=== PATIENT | male | born 1935 | race Caucasian/White ===

== ENCOUNTER → 2020-05-20 10:55 | Outpatient (BNVA) | payer OTHER, SELFPAY | PROVIDERS: PCP Internal Medicine; Referring Provider Internal Medicine; Visit Provider Surgery | DX: K40.90 Unilateral inguinal hernia, without obstruction or gangrene, not specified as recurrent (principal) | CPT/HCPCS: 99212 ==

== ENCOUNTER 2020-07-09 10:39 | Outpatient (REF) | payer OTHER, SELFPAY ==
--- NOTE | 2020-07-09 10:42 | CT_ITS ---
EXAMINATION: CT ABDOMEN AND PELVIS WITH CONTRAST CLINICAL INFORMATION: Abnormal findings on diagnostic imaging of other specified body structure COMPARISON: Previous CT of the abdomen and pelvis October 2018 TECHNIQUE: Multidetector volumetric images were obtained from the superior aspect of the liver through the pubic symphysis following administration 85 mL of Omnipaque 350 intravenous contrast. Sagittal and coronal reformatted images were obtained on the technologist's workstation. Oral contrast: Yes This CT examination was performed using dose optimization techniques as appropriate, variously including the following: *Automated exposure control *Adjustment of mA and/or kV according to patient size (this includes techniques or standardized protocols for targeted exams where dose is matched to indication/reason for exam; i.e. extremities or head) *Use of iterative reconstruction technique DLP: 423 mGy-cm FINDINGS: LUNG BASES: There are clustered left lower lobe pulmonary nodules. The largest measures 6 mm axial image 13. 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 LIVER, GALLBLADDER, AND BILIARY TREE: The liver is normal in size, shape, and attenuation. No focal hepatic lesion or biliary ductal dilatation is present. The gallbladder is unremarkable with no evidence of radiopaque gallstones, gallbladder wall thickening, or obvious pericholecystic inflammatory changes. PANCREAS: Unremarkable. SPLEEN: Unremarkable. ADRENAL GLANDS: Unremarkable. KIDNEYS AND URETERS: There are multiple bilateral renal cysts. The kidneys are otherwise unremarkable. BLADDER: Unremarkable. GASTROINTESTINAL TRACT: There are postsurgical changes to the small bowel with surgical staple line. There is severe diverticulosis of the colon. No evidence of diverticulitis is seen. Left inguinal hernia containing large bowel. There is a partially calcified small bowel mesentery mass and infiltration of the small bowel mesentery. This is irregularly-shaped, follows the vasculature and difficult to measure. This measures 3 x 6 x 6 cm on sagittal and coronal reconstructed images. There are small adjacent noncalcified small bowel mesentery lymph nodes. This is new or increased from October 2018 exam. Carcinoid, lymphoma, mesenteritis and infection such as TB should be considered. ABDOMINAL WALL: There is a large left inguinal hernia containing the sigmoid colon. LYMPH NODES: Partially calcified small bowel mesentery mass, infiltration of the fat and small surrounding noncalcified small bowel mesentery lymph nodes. Largest discrete lymph node is upper normal in size measuring 1 cm. There is a small amount of ascites in the pelvis. VASCULAR: There is evidence of atherosclerotic disease. No aneurysm is seen. The SMA and at the heart patent. PELVIC VISCERA: The prostate gland is enlarged measuring 4 x 5.3 cm in AP and transverse dimension. OSSEOUS STRUCTURES: There are degenerative changes of the spine. There is mild anterior subluxation of L4 with respect L5 probably related to facet arthritis. CT/CT abdomen pelvis w con IMPRESSION: Severe diverticulosis of the colon. Large left inguinal hernia containing the colon. No evidence of obstruction. Postsurgical change to the small bowel. New partially calcified small bowel mesentery mass, adjacent small small bowel mesentery noncalcified lymph nodes and stranding of the small bowel mesentery. Carcinoid, lymphoma, mesenteritis and infection such as TB should be considered. Small amount of ascites. New clustered left lower lobe pulmonary nodules, largest measuring 6 mm. Multiple bilateral renal cysts. Enlarged prostate gland.
[2020-07-09] MEDS: iohexoL 350 MG/ML 100 ML INFUS..BTL IV (11:50)
== END 2020-07-09 10:40 | disposition home or self-care (01) ==
LOC: HO.CT 10:39
PROVIDERS: Visit Provider Surgery
DX: R93.89 Abnormal findings on diagnostic imaging of other specified body structures (principal); K40.90 Unilateral inguinal hernia, without obstruction or gangrene, not specified as recurrent; R19.00 Intra-abdominal and pelvic swelling, mass and lump, unspecified site
CPT/HCPCS: 74177; Q9967

== ENCOUNTER 2021-12-10 14:00 | Emergency (ER) | payer OTHER, MEDICARE, SELFPAY ==
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
--- NOTE | ~2021-12-10 | CT_ITS ---
EXAMINATION: CT HEAD WITHOUT CONTRAST CT CERVICAL SPINE WITHOUT CONTRAST CLINICAL INFORMATION: Fall COMPARISON: None. TECHNIQUE: Multidetector CT imaging of the head and cervical spine was performed without the use of intravenous contrast. Multiplanar reformats are reviewed. This CT examination was performed using dose optimization techniques as appropriate, variously including the following: *Automated exposure control *Adjustment of mA and/or kV according to patient size (this includes techniques or standardized protocols for targeted exams where dose is matched to indication/reason for exam; i.e. extremities or head) *Use of iterative reconstruction technique DLP: 904 mGy-cm. FINDINGS: There is no evidence of acute intracranial hemorrhage or territorial infarction. No abnormal mass effect or midline shift is seen. Cordero to white matter differentiation is well preserved. No extra-axial fluid collections are identified. Generalized brain parenchymal volume loss. No disproportionate ventriculomegaly to suggest complicating hydrocephalus. Patchy subcortical and periventricular white matter low-attenuation changes statistically small vessel ischemic disease. 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 Bilateral mastoid air cell effusions, associated with resorption of some of the septa.. Partial opacification of the bilateral middle ear cavity. No inner ear ossicles are present on the right. Atlantooccipital alignment is maintained. The vertebral bodies and posterior elements align normally. No acute fracture or subluxation. Vertebral body heights are maintained. Small endplate osteophytes present throughout cervical spine. Loss of disc space height present at C3-C4, C5-C6, C6-C7 and C7-T1. The paraspinal soft tissues are unremarkable. The imaged lung apices are clear CT/CT cervical spine wo con IMPRESSION: * No acute intracranial hemorrhage or extra-axial collection. * Mild white matter small vessel ischemic changes. * Chronic bilateral coalescent mastoiditis. 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 * No cervical spine fracture or malalignment.
[2021-12-10 14:12] VITALS: BP 169/82; BP 170/90; PULSE 75; PULSE 90; RESP 18; TEMP 36.8; O2SAT 97; O2SAT 98; BMI 23.6
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
[2021-12-10] MEDS: Acetaminophen 325 MG TABLET 650 MG PO (14:21)
[2021-12-10 16:11] VITALS: BP 157/79; PULSE 76; RESP 16; O2SAT 98
== END 2021-12-10 17:55 | disposition home or self-care (01) ==
PROVIDERS: Emergency Provider Emergency Medicine
DX: S40.011A Contusion of right shoulder, initial encounter (principal); V43.62XA Car passenger injured in collision with other type car in traffic accident, initial encounter; Y93.89 Activity, other specified; Y92.414 Local residential or business street as the place of occurrence of the external cause; Y99.9 Unspecified external cause status
CPT/HCPCS: 70450; 71045; 72125; 73030; 99284

== ENCOUNTER 2022-09-12 08:02 | Inpatient (IN) | payer OTHER, MEDICARE, SELFPAY ==
[2022-09-12] VITALS (11 sets, daily range): BP systolic 137–164; BP diastolic 62–80; PULSE 67–113; RESP 16–25; TEMP 36.7–39.7; O2SAT 94–98; BMI 19.6
--- NOTE | ~2022-09-12 | CT_ITS ---
EXAMINATION: CT ANGIOGRAM OF THE CHEST WITH AND WITHOUT CONTRAST (CT PULMONARY ANGIOGRAM FOR PE) CLINICAL INFORMATION: Reason for Exam +covid, r/o PE COMPARISON: Previous chest x-ray from earlier the same day and chest CT May 2018 TECHNIQUE: Prior to contrast administration, noncontrast localization images were obtained. Subsequently, multidetector volumetric imaging was performed from the thoracic inlet to below the diaphragms following the administration of 65 mL Omnipaque 350 intravenous contrast. No contrast reaction reported Sagittal, coronal, and MIP oblique sagittal reformatted images were obtained on the CT workstation, uploaded to PACS, and reviewed. This CT examination was performed using dose optimization techniques as appropriate, variously including the following: *Automated exposure control *Adjustment of mA and/or kV according to patient size (this includes techniques or standardized protocols for targeted exams where dose is matched to indication/reason for exam; i.e. extremities or head) *Use of iterative reconstruction technique Total exam dose-length product 301 mGy-cm FINDINGS: QUALITY OF STUDY/CONTRAST BOLUS: Satisfactory. PULMONARY ARTERIES: No pulmonary emboli. THORACIC AORTA: No aneurysm. LUNG: Subsegmental atelectasis at the lung bases. Increased dependent soft tissue in the left mainstem bronchus. This may correspond to patient secretions. This is new from 2018 exam. 3 mm calcified granuloma in the superior segment of the right lower lobe near the major fissure. PLEURA: No pleural effusion or pneumothorax. MEDIASTINUM: Normal heart size. No pericardial effusion. Small bilateral hilar and mediastinal lymph nodes. No enlarged hilar or mediastinal lymphadenopathy. No evidence of septal bowing or right heart strain. CORONARY ARTERY CALCIFICATION: Mild CHEST WALL/AXILLA: No axillary or internal mammary lymphadenopathy. OSSEOUS STRUCTURES: No acute or suspicious osseous abnormality. Degenerative changes of the spine. UPPER ABDOMEN: Left renal cyst. No reflux of contrast into the hepatic veins to suggest elevated right heart pressures. CT/CT angio chest PE protocol IMPRESSION: No evidence of pulmonary embolism. Mild dependent atelectasis at the lung bases. VTE: negative
--- NOTE | ~2022-09-12 | XR_ITS ---
EXAMINATION: XR CHEST CLINICAL INFORMATION: Weakness COMPARISON: Chest x-ray December 10, 2021 TECHNIQUE: Frontal view of the chest was obtained. FINDINGS: Cardiac silhouette is normal in size. The lungs are well aerated. There is no lobar consolidation. No pleural effusion or pneumothorax. Old healed rib fractures. XR/XR chest 1V IMPRESSION: No acute pulmonary pathology.
--- NOTE | ~2022-09-12 | CT_ITS ---
EXAMINATION: CT HEAD WITHOUT CONTRAST CLINICAL INFORMATION: Altered mental status COMPARISON: Head CT December 10, 2021 TECHNIQUE: Contiguous axial imaging was performed from the skull base to vertex without intravenous administration of contrast. This CT examination was performed using dose optimization techniques as appropriate, variously including the following: *Automated exposure control *Adjustment of mA and/or kV according to patient size (this includes techniques or standardized protocols for targeted exams where dose is matched to indication/reason for exam; i.e. extremities or head) *Use of iterative reconstruction technique DLP: 635 mGy-cm FINDINGS: There is no evidence of acute intracranial hemorrhage or territorial infarction. No abnormal mass effect or midline shift is appreciated. Cordero-white differentiation is well preserved. No extra-axial fluid collections. The ventricular system and cortical sulci are prominent, consistent with volume loss. There are areas of low density in the periventricular and subcortical white matter, most consistent with sequelae of microvascular ischemic change. 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 The osseous structures and soft tissues are normal. There are calcifications of the cavernous internal carotid arteries. The visualized paranasal sinuses are well aerated. Chronic mastoid air cell effusions. CT/CT head/brain wo IV con IMPRESSION: Chronic microvascular ischemic changes with no CT evidence of acute intracranial abnormality.
[2022-09-12] MEDS: Acetaminophen Supp 650 MG SUPP.RECT PR ×2 (08:26→15:33)
--- NOTE | 2022-09-12 08:28 | ECG_ITS ---
Test Reason : WEAKNESS Blood Pressure : / mmHG Vent. Rate : 080 BPM Atrial Rate : 080 BPM P-R Int : 154 ms QRS Dur : 080 ms QT Int : 380 ms P-R-T Axes : 076 067 095 degrees QTc Int : 438 ms Normal sinus rhythm T wave abnormality, consider anterolateral ischemia Abnormal ECG When compared with ECG of 31-OCT-2018 10:44, T wave inversion now evident in Anterolateral leads Referred By: Katerina Mancilla Electronically Signed By:Abdoul Josue
--- NOTE | 2022-09-12 08:32 | ED_ITS ---
HPI - Weakness General Chief complaint: Weakness Stated complaint: Increased weakness per EMS Time Seen by Provider: 09/12/22 08:20 Source: patient and EMS Mode of arrival: EMS Limitations: no limitations History of Present Illness HPI Narrative: 87 yo male with history of HTN, HLD, CKD, anemia here with generalized weakness, ?confusion, febrile on arrival. Patient with no complaints. Unsure of baseline mental status. Found this morning by spouse to be this way. Last known normal last night. Complaint: generalized weakness Related Data Home Medications Medication Instructions Recorded Confirmed calcium 250 mg tablet 250 mg PO DAILY 09/12/22 09/12/22 vitamin E 09/12/22 Allergies Allergy/AdvReac Type Severity Reaction Status Date / Time No Known Allergies Allergy Unverified 06/08/21 11:28 [No Known Allergies*] Review of Systems Review of Systems: Yes Unobtainable due to mental status [facility] Past Medical History Attestation statement: The following information was validated with the patient. Source: old records reviewed and nursing notes reviewed Medical History Abnormal CT scan Hypercholesterolemia Hypertension Inguinal hernia with strangulation TIA (transient ischemic attack) Surgical History History of right inguinal hernia repair Social History Social History Household Members: Spouse Housing: Apartment Alcohol intake: former Patient Tobacco Use Status: Never used Tobacco Advance Directives: No Advance Directives Information Provided: No service: Yes Current occupational status: retired Physical Exam Vital Signs: Vital Signs: Last Vital Signs Temp 100.7 F H 09/12/22 13:26 Pulse 76 09/12/22 13:26 Resp 20 09/12/22 13:26 BP 142/78 H 09/12/22 13:26 Pulse Ox 96 09/12/22 13:26 O2 Del Method Room Air 09/12/22 13:26 BMI result Body Mass Index 19.6 Const: General: alert HEENT: Other: +tacky mucous membranes Head: Yes normal to inspection Eyes: General: appearance normal, both eyes and all related structures Pupils: Equal, round and reactive pupils present Neck: Neck: Yes normal visual inspection, Yes full ROM, Yes no lymphadenopathy and Yes no meningeal signs Chest: Chest palpation & inspection: normal inspection of the chest Resp: Effort & Inspection: normal respiratory effort Auscultation: clear to auscultation bilaterally Cardio: Rate: regular rate Rhythm: regular rhythm Peripheral pulses: Peripheral pulses 2+ throughout GI: Inspection: Yes normal to inspection Palpation (GI): Soft to palpation and nontender Back/Spine/Pelvis: Thoracic/Lumbar Spine: thoracic and lumbar spine normal to inspection Skin: General skin exam: no rashes or lesions noted Neuro: General: moves all extremities and no meningeal signs Cranial nerves: Yes Equal, round and reactive pupils present Extrem: General: Yes normal to inspection, Yes no pedal edema and Yes no calf tenderness Course Course Course Narrative: 1020-Covid screen is positive. No tachypnea. Saturations are 94% on RA. Temp has improved. Patient still quite weak and confused (oriented to self and place only) but able to move all extremities with no difficulty. Not able to perform ambulatory oxygen saturation. Called and spoke to . She reports patient seemed fine yesterday. They went to bed around 945pm and she did notice the patient was having some difficulty with ambulating to bed and seemed weaker then normal but no other symptom. This morning she was unable to get him out of bed. Denies recent URI symptoms. Patient has never had COVID before. Nursing tells me EMS reported that patients initial oxygen saturation was in the low 80's. Here it is normal. EKG shows some ST changes leads v3-v5 but no recent EKG (last from 2019). No evidence of right heart strain. Initial troponin 31. WIll repeat troponin and obtain CTA to r/o PE. Confusion and weakness may be metabolic encephalopathy from viral illness/fever. Doubt meningitis Reevaluation(s) Reevaluation #1: 1300-Patient with delta increase in troponin. EKG with changes. NO chest pain. Will d/w with cards as admission is likely warranted for further eval. Reevaluation #2: 1320-Patient given ASA VA, lovenox 1mg/kg Medications Administered Discontinued Medications Generic Name Dose Route Start Last Admin Trade Name Freq PRN Reason Stop Dose Admin Acetaminophen 650 mg 09/12/22 08:14 09/12/22 08:26 Acetaminophen Supp 650 Mg Supp.Rect VA 09/12/22 08:15 650 mg ONCE ONE Administration Ceftriaxone Sodium 1 gm/ 50 mls @ 100 mls/hr 09/12/22 08:28 09/12/22 09:54 Sodium Chloride IV 09/12/22 08:57 Infused ONCE ONE Infusion Sodium Chloride 1,000 mls @ 999 mls/hr 09/12/22 08:29 09/12/22 12:09 Ns IV 09/12/22 09:29 Infused .Q1H1M STA Infusion Iohexol 100 ml 09/12/22 10:51 09/12/22 10:53 Iohexol 350 Mg/Ml 100 Ml Infus..Btl IV 09/12/22 10:52 65 ml ONCE ONE Administration Medical Decision Making Medical Decision Making [facility] Narrative: 87 yo male here with generalized weakness, confusion found in bed this way by family today. Noted to be febrile on arrival. Patient unable to provide HPI. NO meningeal signs/lymphadenopathy, moving all four extremities with no weakness appreciated. LS CTA. Other then fever patient has stable vital signs. Will obtain labs including blood cultures, lactic acid, CXR, EKG, CT head, UA, rsv/covid/flu test At this time infection is suspected. Antibiotics ordered. Differential Diagnosis Differential Diagnoses: The differential diagnosis associated with the presentation includes UTI, PNA, viral syndrome less likely ICH, meningitis Admission/Observation Consideration of admission/observation: Escalation of care including admission/observation considered EKG changes with increase in troponin by 50% concerning for ischemia/nstemi Consult Healthcare Provider Management of the patient was discussed with: Hospitalist and Automotive Drivability Technician 1300-Spoke to Dr Armando from cardiology as patient as EKG changes, increase in troponin-he recommended giving aspirin, lovenox or IV heparin and admission 1315-Spoke to Dr FUENTES Lab Data [facility] Lab Attestation statement: I reviewed the patient's lab results. 09/12/22 09:17 09/12/22 09:17 Labs: Lab Results 09/12/22 09/12/22 09/12/22 Range/Units 08:54 08:54 09:17 WBC 6.3 (4.8-10.8) X10*3/uL RBC 3.24 L (4.60-5.80) X10*6/uL Hgb 9.6 L (14.0-18.0) g/dl Hct 29.4 L (42.0-52.0) % MCV 90.7 (80.0-98.0) fL MCH 29.6 (27.0-33.0) pg MCHC 32.7 (31.0-36.0) g/dl RDW 14.8 (11.0-16.0) % Plt Count 134 L (160-400) X10*3/uL MPV 11.6 (9.4-12.4) fL Immature Gran % (Auto) 0.3 (0.0-0.4) % Neut % (Auto) 79.4 H (45-73) % Lymph % (Auto) 6.8 L (20-40) % Merrick % (Auto) 12.9 H (2-11) % Eos % (Auto) 0.3 (0-4) % Baso % (Auto) 0.3 (0-2) % Lymph # (Auto) 0.4 L (1.2-4.9) X10*3/uL Merrick # (Auto) 0.8 (0.1-1.2) X10*3/uL Eos # (Auto) 0.0 (0.0-0.4) X10*3/uL Baso # (Auto) 0.0 (0.0-0.2) X10*3/uL Abs Immat Gran (auto) 0.02 (0.00-0.03) X10*3/uL Absolute Neuts (auto) 5.0 (2.0-8.3) x10*3/uL Absolute Nucleated RBC 0.000 (0.0-0.012) X10*3/uL Nucleated RBC % (auto) 0.0 (0.0-0.2) /100WBC PT (10.0-13.1) SEC INR (0.9-1.1) Sodium (135-145) mmol/L Potassium (3.3-5.1) mmol/L Chloride (96-108) mmol/L Carbon Dioxide (22-29) mmol/L Anion Gap (12-20) BUN (9-16) mg/dL Creatinine (0.5-1.4) mg/dL Estim Creat Clear Calc Estimated GFR Random Glucose (60-115) mg/dL Lactic Acid (0.5-2.0) mmol/L Calcium (8.4-10.2) mg/dL Magnesium (1.6-2.6) mg/dL Total Bilirubin (0.0-1.0) mg/dL Direct Bilirubin (0.0-0.5) mg/dL AST (5-37) U/L ALT (0-40) U/L Alkaline Phosphatase (39-117) U/L Total Creatine Kinase (38-174) U/L Troponin I High Sens (<3.5-35.0) ng/L Total Protein (6.5-8.0) g/dL Albumin (3.5-5.0) g/dL Urine Color Yellow Urine Appearance Clear Urine pH 8.5 (5.0-9.0) Ur Specific [place] 1.015 (1.005-1.025) Urine Protein 30 (1+) H (Neg-Trace) mg/dL Urine Glucose (UA) Negative (Negative) mg/dL Urine Ketones Negative (Negative) mg/dL Urine Blood Small (1+) H (Negative) Urine Nitrite Negative (Negative) Ur Leukocyte Esterase Negative (Negative) Urine RBC 11-20 H (0-2) /HPF Urine WBC 0-5 (0-5) /HPF Ur Squamous Epith Cells 0-2 (0-2) /HPF Urine Bacteria None Seen (None Seen) Hyaline Casts 0-2 (0-2) /LPF Influenza Type A (PCR) NEGATIVE (Negative) Influenza Type B (PCR) NEGATIVE (Negative) RSV RNA Qual (PCR) NEGATIVE (Negative) SARS-CoV-2 RNA (RT-PCR) POSITIVE A (Negative) 09/12/22 09/12/22 09/12/22 Range/Units 09:17 09:17 09:17 WBC (4.8-10.8) X10*3/uL RBC (4.60-5.80) X10*6/uL Hgb (14.0-18.0) g/dl Hct (42.0-52.0) % MCV (80.0-98.0) fL MCH (27.0-33.0) pg MCHC (31.0-36.0) g/dl RDW (11.0-16.0) % Plt Count (160-400) X10*3/uL MPV (9.4-12.4) fL Immature Gran % (Auto) (0.0-0.4) % Neut % (Auto) (45-73) % Lymph % (Auto) (20-40) % Merrick % (Auto) (2-11) % Eos % (Auto) (0-4) % Baso % (Auto) (0-2) % Lymph # (Auto) (1.2-4.9) X10*3/uL Merrick # (Auto) (0.1-1.2) X10*3/uL Eos # (Auto) (0.0-0.4) X10*3/uL Baso # (Auto) (0.0-0.2) X10*3/uL Abs Immat Gran (auto) (0.00-0.03) X10*3/uL Absolute Neuts (auto) (2.0-8.3) x10*3/uL Absolute Nucleated RBC (0.0-0.012) X10*3/uL Nucleated RBC % (auto) (0.0-0.2) /100WBC PT 14.5 H (10.0-13.1) SEC INR 1.3 H (0.9-1.1) Sodium 136 (135-145) mmol/L Potassium 3.9 (3.3-5.1) mmol/L Chloride 101 (96-108) mmol/L Carbon Dioxide 25 (22-29) mmol/L Anion Gap 14 (12-20) BUN 24 H (9-16) mg/dL Creatinine 1.38 (0.5-1.4) mg/dL Estim Creat Clear Calc 34.7 Estimated GFR 49 Random Glucose 97 (60-115) mg/dL Lactic Acid 0.7 (0.5-2.0) mmol/L Calcium 9.2 (8.4-10.2) mg/dL Magnesium 2.1 (1.6-2.6) mg/dL Total Bilirubin 0.6 (0.0-1.0) mg/dL Direct Bilirubin 0.2 (0.0-0.5) mg/dL AST 22 (5-37) U/L ALT 10 (0-40) U/L Alkaline Phosphatase 54 (39-117) U/L Total Creatine Kinase 210 H (38-174) U/L Troponin I High Sens (<3.5-35.0) ng/L Total Protein 6.7 (6.5-8.0) g/dL Albumin 4.1 (3.5-5.0) g/dL Urine Color Urine Appearance Urine pH (5.0-9.0) Ur Specific [place] (1.005-1.025) Urine Protein (Neg-Trace) mg/dL Urine Glucose (UA) (Negative) mg/dL Urine Ketones (Negative) mg/dL Urine Blood (Negative) Urine Nitrite (Negative) Ur Leukocyte Esterase (Negative) Urine RBC (0-2) /HPF Urine WBC (0-5) /HPF Ur Squamous Epith Cells (0-2) /HPF Urine Bacteria (None Seen) Hyaline Casts (0-2) /LPF Influenza Type A (PCR) (Negative) Influenza Type B (PCR) (Negative) RSV RNA Qual (PCR) (Negative) SARS-CoV-2 RNA (RT-PCR) (Negative) 09/12/22 09/12/22 Range/Units 09:17 12:27 WBC (4.8-10.8) X10*3/uL RBC (4.60-5.80) X10*6/uL Hgb (14.0-18.0) g/dl Hct (42.0-52.0) % MCV (80.0-98.0) fL MCH (27.0-33.0) pg MCHC (31.0-36.0) g/dl RDW (11.0-16.0) % Plt Count (160-400) X10*3/uL MPV (9.4-12.4) fL Immature Gran % (Auto) (0.0-0.4) % Neut % (Auto) (45-73) % Lymph % (Auto) (20-40) % Merrick % (Auto) (2-11) % Eos % (Auto) (0-4) % Baso % (Auto) (0-2) % Lymph # (Auto) (1.2-4.9) X10*3/uL Merrick # (Auto) (0.1-1.2) X10*3/uL Eos # (Auto) (0.0-0.4) X10*3/uL Baso # (Auto) (0.0-0.2) X10*3/uL Abs Immat Gran (auto) (0.00-0.03) X10*3/uL Absolute Neuts (auto) (2.0-8.3) x10*3/uL Absolute Nucleated RBC (0.0-0.012) X10*3/uL Nucleated RBC % (auto) (0.0-0.2) /100WBC PT (10.0-13.1) SEC INR (0.9-1.1) Sodium (135-145) mmol/L Potassium (3.3-5.1) mmol/L Chloride (96-108) mmol/L Carbon Dioxide (22-29) mmol/L Anion Gap (12-20) BUN (9-16) mg/dL Creatinine (0.5-1.4) mg/dL Estim Creat Clear Calc Estimated GFR Random Glucose (60-115) mg/dL Lactic Acid (0.5-2.0) mmol/L Calcium (8.4-10.2) mg/dL Magnesium (1.6-2.6) mg/dL Total Bilirubin (0.0-1.0) mg/dL Direct Bilirubin (0.0-0.5) mg/dL AST (5-37) U/L ALT (0-40) U/L Alkaline Phosphatase (39-117) U/L Total Creatine Kinase (38-174) U/L Troponin I High Sens 31.1 50.1 H D (<3.5-35.0) ng/L Total Protein (6.5-8.0) g/dL Albumin (3.5-5.0) g/dL Urine Color Urine Appearance Urine pH (5.0-9.0) Ur Specific [place] (1.005-1.025) Urine Protein (Neg-Trace) mg/dL Urine Glucose (UA) (Negative) mg/dL Urine Ketones (Negative) mg/dL Urine Blood (Negative) Urine Nitrite (Negative) Ur Leukocyte Esterase (Negative) Urine RBC (0-2) /HPF Urine WBC (0-5) /HPF Ur Squamous Epith Cells (0-2) /HPF Urine Bacteria (None Seen) Hyaline Casts (0-2) /LPF Influenza Type A (PCR) (Negative) Influenza Type B (PCR) (Negative) RSV RNA Qual (PCR) (Negative) SARS-CoV-2 RNA (RT-PCR) (Negative) Independent Interpretation I performed an independent interpretation of an: EKG, Plain X-Ray and CT Scan Interpretation: I independently reviewed the EKG which shows normal sinus rhythm with a rate 80, normal VA, normal QRS, inverted T-waves in V3 through V5 which is new when compared from EKG from October of 2018 I independently reviewed the CT head, Ct chest and CXR and agree with the radiologist report Radiology Impression Discussion of test interpretation with radiology: I have reviewed the radiologist's reading. Radiologist Impression: [address] [address] [address] Scan Report Signed Patient: Yeison Williamson MR#: [id number] : 1935 Acct:[id number] Age/Sex: 87 / M ADM Date: 09/12/22 Loc: HO.ED Attending Dr: Ordering Physician: Katerina Doyle NP Date of Service: 09/12/22 Procedure(s): CT head/brain wo IV con Accession Number(s): [id number] cc: Katerina Doyle NP~ EXAMINATION: CT HEAD WITHOUT CONTRAST CLINICAL INFORMATION: Altered mental status? COMPARISON: Head CT December 10, 2021? TECHNIQUE: Contiguous axial imaging was performed from the skull base to vertex without intravenous administration of contrast. This CT examination was performed using dose optimization techniques as appropriate, variously including the following: *Automated exposure control *Adjustment of mA and/or kV according to patient size (this includes techniques or standardized protocols for targeted exams where dose is matched to indication/reason for exam; i.e. extremities or head) *Use of iterative reconstruction technique DLP: 635 mGy-cm FINDINGS: There is no evidence of acute intracranial hemorrhage or territorial infarction.? No abnormal mass effect or midline shift is appreciated. Cordero-white differentiation is well preserved.? No extra-axial fluid collections. The ventricular system and cortical sulci are prominent, consistent with volume loss.? There are areas of low density in the periventricular and subcortical white matter, most consistent with sequelae of microvascular ischemic change. 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 The osseous structures and soft tissues are normal.? There are calcifications of the cavernous internal carotid arteries.? The visualized paranasal sinuses are well aerated. Chronic mastoid air cell effusions. CT/CT head/brain wo IV con IMPRESSION: Chronic microvascular ischemic changes with no CT evidence of acute intracranial abnormality. ? [address] [address] XRay Report Signed Patient: Yeison Williamson MR#: [id number] : 1935 Acct:[id number] Age/Sex: 87 / M ADM Date: 09/12/22 Loc: HO.ED Attending Dr: Ordering Physician: Katerina Doyle NP Date of Service: 09/12/22 Procedure(s): XR chest 1V Accession Number(s): [id number] cc: Katerina Doyle NP~ EXAMINATION: XR CHEST CLINICAL INFORMATION: Weakness COMPARISON: Chest x-ray December 10, 2021 TECHNIQUE: Frontal view of the chest was obtained. FINDINGS: Cardiac silhouette is normal in size. The lungs are well aerated. There is no lobar consolidation. No pleural effusion or pneumothorax. Old healed rib fractures. XR/XR chest 1V IMPRESSION: No acute pulmonary pathology. FINDINGS: QUALITY OF STUDY/CONTRAST BOLUS: Satisfactory. PULMONARY ARTERIES: No pulmonary emboli.? THORACIC AORTA: No aneurysm. LUNG: Subsegmental atelectasis at the lung bases. Increased dependent soft tissue in the left mainstem bronchus. This may correspond to patient secretions. This is new from 2018 exam. 3 mm calcified granuloma in the superior segment of the right lower lobe near the major fissure. PLEURA: No pleural effusion or pneumothorax. MEDIASTINUM: Normal heart size.? No pericardial effusion. Small bilateral hilar and mediastinal lymph nodes. No enlarged hilar or mediastinal lymphadenopathy.? No evidence of septal bowing or right heart strain. CORONARY ARTERY CALCIFICATION: Mild CHEST WALL/AXILLA: No axillary or internal mammary lymphadenopathy. OSSEOUS STRUCTURES: No acute or suspicious osseous abnormality. Degenerative changes of the spine. UPPER ABDOMEN: Left renal cyst.? No reflux of contrast into the hepatic veins to suggest elevated right heart pressures. CT/CT angio chest PE protocol IMPRESSION: No evidence of pulmonary embolism. Mild dependent atelectasis at the lung bases. ? ? Independent Historian Clinical information obtained from an independent historian. History obtained from or confirmed by: EMS Critical Care Time Critical Care Time Critical Care Time: Yes Total Critical Care Time: 60 Attestation: Elevated troponin with EKG changes requiring discussion with Cardiology, admission including discussion with hospital team Had to call the and discussed history of present illness Discharge Plan Discharge Clinical Impression: COVID-19, Acute metabolic encephalopathy, Acute electrocardiogram changes, Elevated troponin Patient Disposition: Admitted As Inpatient
[2022-09-12 09:07] LABS: Appearance Urine Clear; Color Urine Yellow; Glucose Urine UA Negative (Negative); Leukocyte Esterase Urine Negative (Negative); Nitrite Urine Negative (Negative); PH 8.5 (5.0-9.0); Specific Gravity - Urine 1.015 (1.005-1.025); UMIC TRIGGER UACC YES; Urine Blood Small (1+) (Negative); Urine Ketones Negative (Negative); Urine Protein 30 (1+) mg/dL (Neg-Trace)
[2022-09-12 09:19] LABS: Bacteria Urine None Seen (None Seen); Hyaline Casts Urine 0-2 /LPF (0-2); Squamous Epithelial Cell Urine 0-2 /HPF (0-2); WBC Urine 0-5 /HPF (0-5)
[2022-09-12] MEDS: 0.9 % Sodium Chloride 1,000 ML 999 ML IV (09:20)
[2022-09-12 09:24] LABS: MANUAL DIFF FLAG NO
[2022-09-12] MEDS: cefTRIAXone sodium 1 GM in 0.9 % Sodium Chloride 50 ML IV (09:24)
[2022-09-12 09:30] LABS: Basophils Percent Auto 0.3 % (0-2); Eosinophils Percent Auto 0.3 % (0-4); Hematocrit 29.4 % (42.0-52.0); Hemoglobin 9.6 g/dl (14.0-18.0); Imm Gran Abs Auto 0.02 X10*3/uL (0.00-0.03); Imm Gran Pct Auto 0.3 % (0.0-0.4); Lymphocytes Absolute Auto 0.4 X10*3/uL (1.2-4.9); Lymphocytes Percent Auto 6.8 % (20-40); Mean Corpuscular HGB Conc 32.7 g/dl (31.0-36.0); Mean Corpuscular Hemoglobin 29.6 pg (27.0-33.0); Mean Corpuscular Volume 90.7 fL (80.0-98.0); Mean Platelet Volume 11.6 fL (9.4-12.4); Monocytes Absolute Auto 0.8 X10*3/uL (0.1-1.2); Monocytes Percent Auto 12.9 % (2-11); Neutrophils Percent Auto 79.4 % (45-73); Platelet Count 134 X10*3/uL (160-400); Red Blood Count 3.24 X10*6/uL (4.60-5.80); Red Cell Distribution Width 14.8 % (11.0-16.0); White Blood Count 6.3 X10*3/uL (4.8-10.8)
[2022-09-12 09:31] LABS: INTERNATIONAL NORM RATIO 1.3 (0.9-1.1); Prothrombin Time 14.5 SEC (10.0-13.1)
[2022-09-12 09:36] LABS: Lactic Acid 0.7 mmol/L (0.5-2.0)
[2022-09-12 09:42] LABS: Alanine Aminotransferase 10 U/L (0-40); Albumin Level 4.1 g/dL (3.5-5.0); Alkaline Phosphatase 54 U/L (39-117); Anion Gap 14 (12-20); Aspartate Amino Transferase 22 U/L (5-37); Bilirubin Direct 0.2 mg/dL (0.0-0.5); Bilirubin Total 0.6 mg/dL (0.0-1.0); Blood Urea Nitrogen 24 mg/dL (9-16); Calcium 9.2 mg/dL (8.4-10.2); Carbon Dioxide 25 mmol/L (22-29); Chloride 101 mmol/L (96-108); Creatinine Clr Calc Pharmacy 34.7; Estimated Glomerular Filt Rate 49; Glucose Random 97 mg/dL (60-115); Magnesium 2.1 mg/dL (1.6-2.6); Potassium 3.9 mmol/L (3.3-5.1); Sodium 136 mmol/L (135-145); Total Protein 6.7 g/dL (6.5-8.0)
[2022-09-12 09:48] LABS: Troponin-I High Sensitivity 31.1 ng/L (<3.5-35.0)
[2022-09-12 10:05] LABS: Influenza A PCR NEGATIVE (Negative); Influenza B PCR NEGATIVE (Negative); Resp Syncy Virus RNA Qual PCR NEGATIVE (Negative); SARS COV2 PCR INHOUSE POSITIVE (Negative)
[2022-09-12] MEDS: iohexoL 350 MG/ML 100 ML INFUS..BTL IV (10:53)
--- NOTE | 2022-09-12 11:33 | PHA.MEDREC ---
Pharmacy Consult ? Medication Reconciliation Pharmacy has completed the medication reconciliation. Patient received medications and care from [place]. His list only had calcium 250mg and vitamin E without the strength. The list also had another medication with no name, strength or dose. I called [facility] from his profile and they had nothing on file. I called his and she does not know what he takes.
[2022-09-12 12:53] LABS: Troponin-I High Sensitivity 50.1 ng/L (<3.5-35.0)
--- NOTE | 2022-09-12 13:18 | P.CONCA_ITS ---
History of Present Illness History of Present Illness Date of Service: 09/12/22 Chief complaint: Increased weakness per EMS Narrative: This is a cardiology consultation regarding abnormal EKG and elevated troponins. Discussed with ER physician. History of hypertension, high lipids, chronic kidney disease and anemia. It seems that he has been brought in with generalized weakness and confusion. Patient himself is really not able to say anything. Tried numerous times to ask questions about chest pain extra but he is really not saying much and just keeps morning. Hence not known if he has any cardiac symptoms or not. EKG was performed in the ER that was abnormal compared to before and there was also slight elevation of troponins and hence we are asked to see him. He is also COVID positive. Review of Systems Review of Systems: Unable to obtain review of systems is patient is not able to give any information. Neurologic: Reports confusion Psychiatric: Psychiatric: Reports confusion [facility] Past Medical History Medical History Abnormal CT scan Hypercholesterolemia Hypertension Inguinal hernia with strangulation TIA (transient ischemic attack) Family History Pertinent family history: Unable to obtain. Surgical History Surgical History History of right inguinal hernia repair Social History Social History Household Members: Spouse Housing: Apartment Alcohol intake: former Patient Tobacco Use Status: Never used Tobacco Advance Directives: No Advance Directives Information Provided: No service: Yes Current occupational status: retired Meds Allergies Allergy/AdvReac Type Severity Reaction Status Date / Time No Known Allergies Allergy Unverified 06/08/21 11:28 [No Known Allergies*] Active Medications: Current Medications Enoxaparin Sodium (Enoxaparin Sodium 60 Mg/0.6 Ml Syringe) 60 mg 1 mg/kg (60 m g) SUBCUT ONCE ONE Stop: 09/12/22 13:18 Pharmacy Consult (Consult Rx Perform Med Rec) 1 each MISCELLANE ONCE PRN PRN Reason: Consult order Home Medications Medication Instructions Recorded Confirmed Last Taken Type calcium 250 mg tablet 250 mg PO DAILY 09/12/22 09/12/22 Unknown History vitamin E 09/12/22 Unknown History Physical Exam Vital Signs: Vital Signs: Last Vital Signs Temp 98.9 F 09/12/22 11:23 Pulse 87 09/12/22 11:23 Resp 20 09/12/22 11:23 BP 144/67 H 09/12/22 11:23 Pulse Ox 98 09/12/22 11:23 O2 Del Method Room Air 09/12/22 11:23 BMI result Body Mass Index 19.6 Const: General: comfortable, no acute distress, confusion, lethargic and tired appearing Orientation/consciousness: No patient oriented x3, confusion and lethargic HEENT: Other: Unremarkable Head: Yes normal to inspection Neck: Neck: Yes normal visual inspection Chest: Chest palpation & inspection: normal inspection of the chest Resp: Auscultation: diminished lung sounds Cardio: Palpation: normal PMI Heart sounds: S1 normal heart sound present, S2 normal heart sound present, no gallops, no murmurs and no rubs GI: Palpation (GI): Soft to palpation Back/Spine/Pelvis: Other: unremarkable Skin: General skin exam: no rashes or lesions noted Neuro: General: No patient oriented x3 and confusion Extrem: General: Yes normal to inspection Psych: Mental Status: mental status grossly abnormal Objective Labs and Meds 09/12/22 09:17 09/12/22 09:17 Lab results: Laboratory Results - last 24 hr 09/12/22 09/12/22 09/12/22 08:54 08:54 09:17 WBC 6.3 RBC 3.24 L Hgb 9.6 L Hct 29.4 L MCV 90.7 MCH 29.6 MCHC 32.7 RDW 14.8 Plt Count 134 L MPV 11.6 Immature Gran % (Auto) 0.3 Neut % (Auto) 79.4 H Lymph % (Auto) 6.8 L [place] % (Auto) 12.9 H Eos % (Auto) 0.3 Baso % (Auto) 0.3 Lymph # (Auto) 0.4 L [place] # (Auto) 0.8 Eos # (Auto) 0.0 Baso # (Auto) 0.0 Abs Immat Gran (auto) 0.02 Absolute Neuts (auto) 5.0 Absolute Nucleated RBC 0.000 Nucleated RBC % (auto) 0.0 PT INR Sodium Potassium Chloride Carbon Dioxide Anion Gap BUN Creatinine Estim Creat Clear Calc Estimated GFR Random Glucose Lactic Acid Calcium Magnesium Total Bilirubin Direct Bilirubin AST ALT Alkaline Phosphatase Total Creatine Kinase Troponin I High Sens Total Protein Albumin Urine Color Yellow Urine Appearance Clear Urine pH 8.5 Ur Specific [place] 1.015 Urine Protein 30 (1+) H Urine Glucose (UA) Negative Urine Ketones Negative Urine Blood Small (1+) H Urine Nitrite Negative Ur Leukocyte Esterase Negative Urine RBC 11-20 H Urine WBC 0-5 Ur Squamous Epith Cells 0-2 Urine Bacteria None Seen Hyaline Casts 0-2 Influenza Type A (PCR) NEGATIVE Influenza Type B (PCR) NEGATIVE RSV RNA Qual (PCR) NEGATIVE SARS-CoV-2 RNA (RT-PCR) POSITIVE A 09/12/22 09/12/22 09/12/22 09:17 09:17 09:17 WBC RBC Hgb Hct MCV MCH MCHC RDW Plt Count MPV Immature Gran % (Auto) Neut % (Auto) Lymph % (Auto) [place] % (Auto) Eos % (Auto) Baso % (Auto) Lymph # (Auto) [place] # (Auto) Eos # (Auto) Baso # (Auto) Abs Immat Gran (auto) Absolute Neuts (auto) Absolute Nucleated RBC Nucleated RBC % (auto) PT 14.5 H INR 1.3 H Sodium 136 Potassium 3.9 Chloride 101 Carbon Dioxide 25 Anion Gap 14 BUN 24 H Creatinine 1.38 Estim Creat Clear Calc 34.7 Estimated GFR 49 Random Glucose 97 Lactic Acid 0.7 Calcium 9.2 Magnesium 2.1 Total Bilirubin 0.6 Direct Bilirubin 0.2 AST 22 ALT 10 Alkaline Phosphatase 54 Total Creatine Kinase 210 H Troponin I High Sens Total Protein 6.7 Albumin 4.1 Urine Color Urine Appearance Urine pH Ur Specific [place] Urine Protein Urine Glucose (UA) Urine Ketones Urine Blood Urine Nitrite Ur Leukocyte Esterase Urine RBC Urine WBC Ur Squamous Epith Cells Urine Bacteria Hyaline Casts Influenza Type A (PCR) Influenza Type B (PCR) RSV RNA Qual (PCR) SARS-CoV-2 RNA (RT-PCR) 09/12/22 09/12/22 09:17 12:27 WBC RBC Hgb Hct MCV MCH MCHC RDW Plt Count MPV Immature Gran % (Auto) Neut % (Auto) Lymph % (Auto) [place] % (Auto) Eos % (Auto) Baso % (Auto) Lymph # (Auto) [place] # (Auto) Eos # (Auto) Baso # (Auto) Abs Immat Gran (auto) Absolute Neuts (auto) Absolute Nucleated RBC Nucleated RBC % (auto) PT INR Sodium Potassium Chloride Carbon Dioxide Anion Gap BUN Creatinine Estim Creat Clear Calc Estimated GFR Random Glucose Lactic Acid Calcium Magnesium Total Bilirubin Direct Bilirubin AST ALT Alkaline Phosphatase Total Creatine Kinase Troponin I High Sens 31.1 50.1 H D Total Protein Albumin Urine Color Urine Appearance Urine pH Ur Specific [place] Urine Protein Urine Glucose (UA) Urine Ketones Urine Blood Urine Nitrite Ur Leukocyte Esterase Urine RBC Urine WBC Ur Squamous Epith Cells Urine Bacteria Hyaline Casts Influenza Type A (PCR) Influenza Type B (PCR) RSV RNA Qual (PCR) SARS-CoV-2 RNA (RT-PCR) ECG Interpretation: EKG with sinus rhythm at 80/Min; anterior T inversions. Not seen in the previous EKG from 2019. Imaging Radiologist's impression: Impressions Head CT 09/12/22 09:04 IMPRESSION: Chronic microvascular ischemic changes with no CT evidence of acute intracranial abnormality. Chest X-Ray 09/12/22 09:06 IMPRESSION: No acute pulmonary pathology. Chest CTA 09/12/22 10:57 IMPRESSION: No evidence of pulmonary embolism. Mild dependent atelectasis at the lung bases. VTE: negative Assessment and Plan (1) NSTEMI (non-ST elevated myocardial infarction): Status: Acute (2) COVID-19: Status: Acute Plan Chest CTA reported to have no pulmonary embolism. Mild dependent atelectasis lung bases. High sensitivity troponins are 31 and 50. Creatinine kinase 210. Other labs reviewed. COVID positive. Overall, abnormal EKG showing LAD territory ischemia, slight elevation of troponins, positive COVID, confusion. Because of mental status, cannot obtain any information about if any chest pain present or not. Can treat for acute coronary syndrome/NSTEMI. If no medical contraindications, then IV heparin drip. Aspirin. Treat COVID accordingly. Echocardiogram tomorrow. After he is a bit more communicative, then can obtain further history and proceed accordingly. Discussed with ER provider as well as hospitalist. Guarded prognosis. Time Spent With Patient Time: Total time managing care of this patient today 75 minutes. This includes time spent in review of chart, laboratory data, imaging studies, discussion with ER provider, hospitalist, documentation, coordination of care. Procedures Date of Service Date of Service: 09/12/22
--- NOTE | 2022-09-12 13:35 | PC.NURSE ---
30mm [place] cath placed on pt due to continued urinary incontinence. wctm for output.
--- NOTE | 2022-09-12 13:40 | MHC.CM.ED ---
Received case management consult from Katerina WOOD. Received notification from Katerina WOOD that patient will be admitted.
--- NOTE | 2022-09-12 14:16 | PM.IMHP ---
History of Present Illness Date of Service: 09/12/22 <COOPER Gallego - Last Filed: 09/12/22 14:43> Attending physician on admission: Kaden Rangel <COOPER Gallego - Last Filed: 09/12/22 14:43> Chief Complaint: AMS, weakness <COOPER Gallego - Last Filed: 09/12/22 14:43> 87-year-old male with history hypercholesterolemia, hypertension, TIA, and hx strangulated inguinal hernia s/p small bowel resection with hernia repair presented for evaluation of altered mental status and weakness. The patient is alert and oriented x3 but is unable to provide much history and does seem confused. Call placed to patient's , with whom he lives and is HCP according to her, who reports patient was noted to be generally weak last night and then when she went to his room to wake him this morning was found to be confused and quite weak unable to get out of bed so she called EMS. Per ED report, EMS noted pulse oximetry of 85% but on arrival has been maintaining oximetry >93%. He was noted to be febrile to 103.4 on arrival, vitals otherwise stable. Given 650 mg Tylenol per rectum. New leukocytosis. Normocytic anemia H/H 9.6/29.4%, consistent with baseline. Platelets 134. PT 14.5, INR 1.3. Renal function baseline, electrolyte levels normal. CK 210, initial troponin 31.1, repeat 50.1. EKG with T-wave inversions in anterolateral leads, new when compared to prior EKG from 10/2018. Urinalysis unremarkable. Positive for COVID-19. Head CT is without any acute intracranial abnormality. CXR is negative. CTA chest is negative for any pulmonary embolism but does show mild dependent atelectasis in the bases bilaterally. No other focal consolidation or density. The patient is able tell me he has had a cough and denies sob or chest pain, but is not able to provide other history. ED provider discussed case with cardiology who consulted on patient and is recommending admission for NSTEMI. In ED, pt ordered for therapeutic lovenox. <COOPER Gallego - Last Filed: 09/12/22 14:43> Review of Systems Review of Systems: Yes Unobtainable due to mental status <COOPER Gallego - Last Filed: 09/12/22 14:43> [facility] Medical History: Medical History Abnormal CT scan Hypercholesterolemia Hypertension Inguinal hernia with strangulation TIA (transient ischemic attack) <COOPER Gallego - Last Filed: 09/12/22 14:43> Surgical History: Surgical History History of right inguinal hernia repair <COOPER Gallego - Last Filed: 09/12/22 14:43> Social History: Social History Household Members: Spouse Housing: Unknown / Unable to assess Do you presently have visiting nurse or other home services: No Alcohol intake: former Patient Tobacco Use Status: Never used Tobacco Use of substances other than those prescribed or required for medical reasons: No Currently Displaying Signs/Symptoms of Drug Intoxication Withdrawal: No Have you been hit, kicked, punched, or otherwise hurt by someone within the past year? If so, by whom?: No Do you feel safe in your current relationship?: Yes Is there a partner from a previous relationship who is making you feel unsafe now?: No Are you made to feel afraid or neglected: No Advance Directives: No Advance Directives Information Provided: No Do you have thoughts of harming others: None Do you have a plan to hurt others: No Plan service: Yes Current occupational status: retired <COOPER Gallego - Last Filed: 09/12/22 14:43> Meds Allergies/Adverse reactions: Allergies Allergy/AdvReac Type Severity Reaction Status Date / Time No Known Allergies Allergy Unverified 06/08/21 11:28 [No Known Allergies*] <COOPER Gallego - Last Filed: 09/12/22 14:43> Active Medications: Current Medications Acetaminophen (Acetaminophen Supp 650 Mg Supp.Rect) 650 mg [place] Q6H PRN PRN Reason: Pain, Mild, fever Enoxaparin Sodium (Enoxaparin Sodium 40 Mg/0.4 Ml Syringe) 60 mg SUBCUT Q12H [facility] Non-Formulary Medication (Calcium) 250 mg PO DAILY [facility] Pharmacy Consult (Consult Rx Perform Med Rec) 1 each MISCELLANE ONCE PRN PRN Reason: Consult order Sodium Chloride (0.9 % Sodium Chloride Flush 3 Ml Syringe) 3 ml IVFLUSH QSHIFT [facility] <COOPER Gallego - Last Filed: 09/12/22 14:43> Home medications: Home Medications Medication Instructions Recorded Confirmed Last Taken Type calcium 250 mg tablet 250 mg PO DAILY 09/12/22 09/12/22 Unknown History vitamin E 09/12/22 Unknown History <COOPER Gallego - Last Filed: 09/12/22 14:43> Physical Exam Vital Signs and Narrative: Vital Signs: Last Vital Signs Temp 100.7 F H 09/12/22 13:26 Pulse 76 09/12/22 13:26 Resp 20 09/12/22 13:26 BP 142/78 H 09/12/22 13:26 Pulse Ox 96 09/12/22 13:26 O2 Del Method Room Air 09/12/22 13:26 BMI result Body Mass Index 19.6 <COOPER Gallego - Last Filed: 09/12/22 14:43> Constitutional - Awake and Alert, No apparent distress Eyes - PERRLA, EOMI Cardiovascular - S1S2, RRR, No edema Respiratory - Normal lung expansion, Normal respiratory effort, No respiratory distress, CTA bilaterally Gastrointestinal - NT / ND; +BS; No rebound or guarding Extremities - no calf tenderness bilaterally, no swelling Skin - Warm/Dry Neurological - Alert & oriented x3, but unable to provide much history given confusion <COOPER Gallego - Last Filed: 09/12/22 14:43> Results Labs CBC and Chem 7: 09/12/22 09:17 09/12/22 09:17 <COOPER Gallego - Last Filed: 09/12/22 14:43> Labs: Laboratory Results - last 24 hr 09/12/22 09/12/22 09/12/22 08:54 08:54 09:17 MCV 90.7 MCH 29.6 MCHC 32.7 RDW 14.8 Plt Count 134 L MPV 11.6 Immature Gran % (Auto) 0.3 Neut % (Auto) 79.4 H Lymph % (Auto) 6.8 L [place] % (Auto) 12.9 H Eos % (Auto) 0.3 Baso % (Auto) 0.3 Lymph # (Auto) 0.4 L [place] # (Auto) 0.8 Eos # (Auto) 0.0 Baso # (Auto) 0.0 Abs Immat Gran (auto) 0.02 Absolute Neuts (auto) 5.0 Absolute Nucleated RBC 0.000 Nucleated RBC % (auto) 0.0 PT INR Anion Gap Estim Creat Clear Calc Estimated GFR Random Glucose Lactic Acid Calcium Magnesium Total Bilirubin Direct Bilirubin AST ALT Alkaline Phosphatase Total Creatine Kinase Troponin I High Sens Total Protein Albumin Urine Color Yellow Urine Appearance Clear Urine pH 8.5 Ur Specific [place] 1.015 Urine Protein 30 (1+) H Urine Glucose (UA) Negative Urine Ketones Negative Urine Blood Small (1+) H Urine Nitrite Negative Ur Leukocyte Esterase Negative Urine RBC 11-20 H Urine WBC 0-5 Ur Squamous Epith Cells 0-2 Urine Bacteria None Seen Hyaline Casts 0-2 Influenza Type A (PCR) NEGATIVE Influenza Type B (PCR) NEGATIVE RSV RNA Qual (PCR) NEGATIVE SARS-CoV-2 RNA (RT-PCR) POSITIVE A 09/12/22 09/12/22 09/12/22 09:17 09:17 09:17 MCV MCH MCHC RDW Plt Count MPV Immature Gran % (Auto) Neut % (Auto) Lymph % (Auto) [place] % (Auto) Eos % (Auto) Baso % (Auto) Lymph # (Auto) [place] # (Auto) Eos # (Auto) Baso # (Auto) Abs Immat Gran (auto) Absolute Neuts (auto) Absolute Nucleated RBC Nucleated RBC % (auto) PT 14.5 H INR 1.3 H Anion Gap 14 Estim Creat Clear Calc 34.7 Estimated GFR 49 Random Glucose 97 Lactic Acid 0.7 Calcium 9.2 Magnesium 2.1 Total Bilirubin 0.6 Direct Bilirubin 0.2 AST 22 ALT 10 Alkaline Phosphatase 54 Total Creatine Kinase 210 H Troponin I High Sens Total Protein 6.7 Albumin 4.1 Urine Color Urine Appearance Urine pH Ur Specific [place] Urine Protein Urine Glucose (UA) Urine Ketones Urine Blood Urine Nitrite Ur Leukocyte Esterase Urine RBC Urine WBC Ur Squamous Epith Cells Urine Bacteria Hyaline Casts Influenza Type A (PCR) Influenza Type B (PCR) RSV RNA Qual (PCR) SARS-CoV-2 RNA (RT-PCR) 09/12/22 09/12/22 09:17 12:27 MCV MCH MCHC RDW Plt Count MPV Immature Gran % (Auto) Neut % (Auto) Lymph % (Auto) [place] % (Auto) Eos % (Auto) Baso % (Auto) Lymph # (Auto) [place] # (Auto) Eos # (Auto) Baso # (Auto) Abs Immat Gran (auto) Absolute Neuts (auto) Absolute Nucleated RBC Nucleated RBC % (auto) PT INR Anion Gap Estim Creat Clear Calc Estimated GFR Random Glucose Lactic Acid Calcium Magnesium Total Bilirubin Direct Bilirubin AST ALT Alkaline Phosphatase Total Creatine Kinase Troponin I High Sens 31.1 50.1 H D Total Protein Albumin Urine Color Urine Appearance Urine pH Ur Specific [place] Urine Protein Urine Glucose (UA) Urine Ketones Urine Blood Urine Nitrite Ur Leukocyte Esterase Urine RBC Urine WBC Ur Squamous Epith Cells Urine Bacteria Hyaline Casts Influenza Type A (PCR) Influenza Type B (PCR) RSV RNA Qual (PCR) SARS-CoV-2 RNA (RT-PCR) <COOPER Gallego - Last Filed: 09/12/22 14:43> Imaging Radiologist's Impressions: Impressions Head CT 09/12/22 09:04 IMPRESSION: Chronic microvascular ischemic changes with no CT evidence of acute intracranial abnormality. Chest X-Ray 09/12/22 09:06 IMPRESSION: No acute pulmonary pathology. Chest CTA 09/12/22 10:57 IMPRESSION: No evidence of pulmonary embolism. Mild dependent atelectasis at the lung bases. VTE: negative <COOPER Gallego - Last Filed: 09/12/22 14:43> Assessment and Plan (1) NSTEMI (non-ST elevated myocardial infarction): Status: Acute <COOPER Gallego - Last Filed: 09/12/22 14:43> (2) COVID-19: Status: Acute <COOPER Gallego - Last Filed: 09/12/22 14:43> 87-year-old male with history hypercholesterolemia, hypertension, TIA, and hx strangulated inguinal hernia s/p small bowel resection with hernia repair admitted for management of NSTEMI #NSTEMI -EKG with new t wave inversions in anterolateral leads, new compared to EKG 10/2018. No HARVEY or ST depressions -Trop 31.1--> 50.1. Repeat q6h until peaked -Pt denies chest pain -Therapeutic lovenox 60mg BID -Given asa 325mg [place]. Continue asa 81mg qd -Unclear if pt taking BB. Awaiting med rec. -Admit to telemetry -Appreciate cardiology input #COVID-19 -No hypoxia- steroids and remdesivir not indicated -Airborne/contact precautions -Symptomatic management #Metabolic encephalopathy -r/t COVID-19 -Head CT negative -Monitor mentation -Keep NPO for now, pending swallow eval #Hx TIA -continue asa #HTN- reasonably controlled -Continue home meds #HLD -Continue home meds #CKD stage 3 -renal fx baseline #Anemia of chronic disease -H/H, above transfusion threshold DVT prophylaxis- on therapeutic lovenox Full code- discussed with patient's , pt unable to tell me his code status due to encephalopathy NPO pending swallow eval Med rec pending Pt requires inpt stay at least 2 midnights for management of NSTEMI on IV anticoagulants requiring close monitoring for cardiac decompensation <COOPER Gallego - Last Filed: 09/12/22 14:43> 75-year-old male with past medical history of CAD, CHF on Lasix 20 mg daily, comes into the hospital with complaints of shortness of breath found to have COVID-19 pneumonia #? acute hypoxic respiratory failure -? likely secondary to COVID-19 pneumonia complicated by CHF -? will treat with Decadron, will also treat with IV antibiotics given his? pneumonia and leukocytosis -? continue O2 as required -? monitor respiratory status #? pneumonia due to COVID-19 -? with hypoxia -? will treat with Decadron -? will consult ID for him-severe -? monitor respiratory status #? CHF exacerbation -? BNP is elevated -? patient has trace pedal edema -? will add Lasix 40 mg daily -? will obtain echo -? cardiology consulted # MASSIEL -? likely cardiorenal -? will treat with Lasix -? follow BMP #? history of CAD -? continue aspirin? and carvedilol #? on anticoagulation -? patient and do not know why -? medical history is from [place] -? will continue at this time #? hyperlipidemia -? continue statin #? hypertension -? elevated -? continue antihypertensives ?DVT prophylaxis:? Eliquis ?given patient's need for oxygen, COVID-19 infection requiring dexamethasone, as well as requiring oxygen patient will require minimal to nits inpatient hospital stay for further management and monitoring <Kaden Rangel MD - Last Filed: 09/13/22 09:29> Time Spent With Patient Time: Total time managing care of this patient today ____ minutes. <COOPER Gallego - Last Filed: 09/12/22 14:43> Quality Stroke Does the patient have a stroke diagnosis?: No <COOPER Gallego - Last Filed: 09/12/22 14:43> VTE Prior VTE?: No <COOPER Gallego - Last Filed: 09/12/22 14:43> VTE Risk Level:: Medical - moderate - high <COOPER Gallego - Last Filed: 09/12/22 14:43> VTE Device Contraindication: Treatment Not Indicated <COOPER Gallego - Last Filed: 09/12/22 14:43> VTE Drug Contraindication: N/A - Med Ordered <COOPER Gallego - Last Filed: 09/12/22 14:43>
[2022-09-12] MEDS: Aspirin 325 MG TABLET PO (14:28)
[2022-09-12 15:03] LABS: MANUAL DIFF FLAG NO
[2022-09-12 15:05] LABS: Eosinophils Percent Auto 0.2 % (0-4); Hemoglobin 9.6 g/dl (14.0-18.0); Imm Gran Abs Auto 0.02 X10*3/uL (0.00-0.03); Imm Gran Pct Auto 0.3 % (0.0-0.4); PLT CLUMP 1; Red Cell Distribution Width 14.9 % (11.0-16.0); SCAN SMEAR FLAG 1
[2022-09-12 15:07] LABS: Basophils Percent Auto 0.3 % (0-2); Hematocrit 29.6 % (42.0-52.0); Lymphocytes Absolute Auto 0.7 X10*3/uL (1.2-4.9); Lymphocytes Percent Auto 11.1 % (20-40); Mean Corpuscular HGB Conc 32.4 g/dl (31.0-36.0); Mean Corpuscular Hemoglobin 29.7 pg (27.0-33.0); Mean Corpuscular Volume 91.6 fL (80.0-98.0); Mean Platelet Volume 11.2 fL (9.4-12.4); Monocytes Absolute Auto 0.9 X10*3/uL (0.1-1.2); Monocytes Percent Auto 13.9 % (2-11); Neutrophils Absolute Auto 4.5 x10*3/uL (2.0-8.3); Neutrophils Percent Auto 74.2 % (45-73); Red Blood Count 3.23 X10*6/uL (4.60-5.80)
[2022-09-12 15:10] LABS: Platelet Count 125 X10*3/uL (160-400); White Blood Count 6.1 X10*3/uL (4.8-10.8)
[2022-09-12] MEDS: Enoxaparin Sodium 60 MG/0.6 ML SYRINGE SUBCUT (15:10)
[2022-09-12 15:12] LABS: Partial Thromboplastin Time 35.3 SEC (26.0-36.4)
[2022-09-12 15:18] LABS: Anion Gap 16 (12-20); Blood Urea Nitrogen 21 mg/dL (9-16); Calcium 8.6 mg/dL (8.4-10.2); Carbon Dioxide 20 mmol/L (22-29); Chloride 102 mmol/L (96-108); Creatinine Clr Calc Pharmacy 38.7; Estimated Glomerular Filt Rate 55; Glucose Random 95 mg/dL (60-115); Potassium 3.8 mmol/L (3.3-5.1); Sodium 134 mmol/L (135-145)
[2022-09-12] MEDS: 0.9 % Sodium Chloride Flush 3 ML SYRINGE IVFLUSH (18:17)
[2022-09-12 19:09] LABS: Troponin-I High Sensitivity 72.5 ng/L (<3.5-35.0)
[2022-09-13] VITALS (8 sets, daily range): BP systolic 107–170; BP diastolic 55–80; PULSE 60–77; RESP 17–20; TEMP 36.7–38; O2SAT 92–95
--- NOTE | 2022-09-13 | ECG_ITS ---
Test Reason : t wave changes Blood Pressure : / mmHG Vent. Rate : 065 BPM Atrial Rate : 065 BPM P-R Int : 148 ms QRS Dur : 084 ms QT Int : 430 ms P-R-T Axes : 075 064 093 degrees QTc Int : 447 ms Normal sinus rhythm T wave abnormality, consider anterior ischemia Abnormal ECG When compared with ECG of 12-SEP-2022 08:41, No significant change was found Referred By: Abdoul Josue Electronically Signed By:Abdoul Josue
[2022-09-13] MEDS: Acetaminophen Supp 650 MG SUPP.RECT PR ×2 (00:41→09:52)
[2022-09-13] MEDS: 0.9 % Sodium Chloride Flush 3 ML SYRINGE IVFLUSH ×4 (00:42→20:23)
[2022-09-13] MEDS: Enoxaparin Sodium 60 MG/0.6 ML SYRINGE SUBCUT ×2 (02:52→15:39)
--- NOTE | 2022-09-13 07:00 | CA_ITS ---
Transthoracic Echocardiogram Patient (Last, First, Middle): Yeison Williamson E Gender: Male Date of : 1935 Age: 87 Procedure Date: 09/13/2022 Procedure Type: Transthoracic Echocardiogram Location: [facility] [place] Height: 180.34 cm Weight: 66.06 kg BSA: 1.84 m2 Heart Rate: bpm BP: 160 / 74 mmHg Cardiology Technician: Referring MD: Fiona GAMBOA Symptoms: nstemi Study Quality: Good on Apical views ECG Rhythm: Sinus Conclusions: - Normal left ventricular size and systolic function. There is mildly increased left ventricular wall thickness. The visually estimated ejection fraction is between 55-60%. - Normal right ventricular cavity size and systolic function. Findings Left Ventricle Normal left ventricular size and systolic function. There is mildly increased left ventricular wall thickness. The visually estimated ejection fraction is between 55-60%. There is no evidence of regional wall motion abnormalities. Diastolic function is normal for age. Right Ventricle Normal right ventricular cavity size and systolic function. Atria The left atrium is normal in size. Aortic Valve There is a normal trileaflet aortic valve. There is mild calcification of the aortic valve. There is no aortic valve stenosis. There is no aortic valve regurgitation. Mitral Valve Normal mitral valve structure and function. There is trace mitral valve regurgitation. There is no mitral valve stenosis. Pulmonic Valve The pulmonic valve is likely normal. Tricuspid Valve Normal tricuspid valve structure and function. There is trace tricuspid valve regurgitation. Normal right atrial pressure. There is no evidence of pulmonary hypertension. Great Vessels All visible segments of the aorta are normal in size. The visualized portions of the pulmonary artery and branches are normal. Venous The inferior vena cava is normal in size and collapses greater than 50% with inspiration. Pericardium/Pleural There is no evidence of pericardial effusion. Prior Study Comparison No prior study available for comparison. Measurements 2D Linear Measurements IVSd: 1.08 0.6-0.9/0.6-1.0 cm LVIDd: 4.64 3.9-5.3/4.2-5.9 cm LVIDd Index: 2.52 2.4-3.2/2.2-3.1 cm/m2 LVIDs: 3.26 2.0-3.6 cm LVPWd: 1.11 0.7-1.1 cm Ao Root: 3.20 2.1-3.5 cm LA Diam: 2.80 2.7-3.8/3.0-4.0 cm LAIDs Index: 1.52 1.5-2.3 cm/m2 LV Mass: 227.46 67-162/88-224 g LV Mass Index: 123.62 43-95/49-115 g/m2 LVOT Diam: 2.10 3.0+(-)1.3 cm 2D Systolic Function EF 4C: 60.60 >55% EF 2C: 71.10 >55% EF BiP: 64.40 >55% Mitral Valve MV Pk E: 0.77 MV PK A: 0.63 MV Decel Time: 139.00 E/A: 1.20 E'Lateral: 9.90 E'Medial: 7.40 E/E' Med: 10.40 E/E' Lat: 7.80 PHT: 41.00 MVA PHT: 5.37 Decel Coffee: 5.55 Aortic Valve AoV Pk Eladio: 1.54 AoV Mn Eladio: 1.06 AoV VTI: 0.39 AoV Pk Grad: 9.00 Aov Mn Grad: 5.00 SUSIE Cont.VTI: 1.98 LVOT LVOT Pk Eladio: 0.89 LVOT Mn Eladio: 0.56 LVOT VTI: 0.22 LVOT Pk Grad: 3.00 LVOT Mn Grad: 2.00 LVOT Diam: 2.10 LVOT Area: 3.46 Diastolic Function MV Pk E: 0.77 MV Pk A: 0.63 E/A: 1.20 E'Medial: 7.40 E/E' Med: 10.40 E' Laterial: 9.90 E/E' Lat: 7.80 Right Ventricle TAPSE (mm): 26.00 Tricuspid Valve TR Pk Eladio: 2.52 TR Pk Grad: 25.00 RA Press: 3.00 RVSP: 28.00 Great Vessels Aorta Ao Root-2D: 3.20 2.0-3.7 cm Ao Asc: 2.90 2.1-3.4 cm Pulmonary Valve PV Pk Eladio: 0.84 Peak PV Grad: 3.00 Updated in Other Vendor System with Status of Final Abdoul Josue MD electronically signed on 09/13/2022 4:33:10 PM with status of Final
--- NOTE | 2022-09-13 09:30 | P.PNIM_ITS ---
Subjective Subjective Date of Service: 09/13/22 Interval History: f/u on NSTEMI, covid doing well, no new issues Review of Systems no sob no chest pain Physical Exam Vital Signs: Vital Signs: Last Vital Signs Temp 100.4 F 09/13/22 07:36 Pulse 77 09/13/22 07:36 Resp 20 09/13/22 07:36 BP 158/76 H 09/13/22 07:36 Pulse Ox 94 09/13/22 07:36 O2 Del Method Room Air 09/13/22 07:36 BMI result Body Mass Index 19.6 Const: Other: General: AO X 2, no acute distress Resp: CTA bilateral CVS: S1,S2,RRR GI: +BS, NT, no distention Skin: No rash Neuro: motor grossly intact Psych: appropriate affect Objective Data Active Medications Acetaminophen (Acetaminophen Supp 650 Mg Supp.Rect) 650 mg ND Q6H PRN PRN Reason: Pain, Mild, fever Last Admin: 09/13/22 00:41 Dose: 650 mg Documented By: NANDINI Aspirin (Aspirin Enteric Coated 81 Mg Tablet.Dr) 81 mg PO DAILY [facility] Calcium Carbonate (Calcium Carbonate 500 Mg Tablet) 250 mg PO DAILY [facility] Enoxaparin Sodium (Enoxaparin Sodium 60 Mg/0.6 Ml Syringe) 60 mg SUBCUT Q12H [facility] Last Admin: 09/13/22 02:52 Dose: 60 mg Documented By: NANDINI Guaifenesin (Guaifenesin 200 Mg/10 Ml 10 Ml Liquid) 10 ml PO Q6H PRN PRN Reason: Cough Pharmacy Consult (Consult Rx Perform Med Rec) 1 each MISCELLANE ONCE PRN PRN Reason: Consult order Sodium Chloride (0.9 % Sodium Chloride Flush 3 Ml Syringe) 3 ml IVFLUSH QSHIFT [facility] Last Admin: 09/13/22 00:42 Dose: 3 ml Documented By: NANDINI Labs 09/12/22 14:59 09/12/22 14:59 Labs: Laboratory Results - last 24 hr 09/12/22 09/12/22 09/12/22 08:54 09:17 09:17 MCV 90.7 MCH 29.6 MCHC 32.7 RDW 14.8 Plt Count 134 L MPV 11.6 Immature Gran % (Auto) 0.3 Neut % (Auto) 79.4 H Lymph % (Auto) 6.8 L [place] % (Auto) 12.9 H Eos % (Auto) 0.3 Baso % (Auto) 0.3 Lymph # (Auto) 0.4 L [place] # (Auto) 0.8 Eos # (Auto) 0.0 Baso # (Auto) 0.0 Abs Immat Gran (auto) 0.02 Absolute Neuts (auto) 5.0 Absolute Nucleated RBC 0.000 Nucleated RBC % (auto) 0.0 PT 14.5 H INR 1.3 H APTT Anion Gap Estim Creat Clear Calc Estimated GFR Random Glucose Lactic Acid Calcium Magnesium Total Bilirubin Direct Bilirubin AST ALT Alkaline Phosphatase Total Creatine Kinase Troponin I High Sens Total Protein Albumin Influenza Type A (PCR) NEGATIVE Influenza Type B (PCR) NEGATIVE RSV RNA Qual (PCR) NEGATIVE SARS-CoV-2 RNA (RT-PCR) POSITIVE A 09/12/22 09/12/22 09/12/22 09:17 09:17 09:17 MCV MCH MCHC RDW Plt Count MPV Immature Gran % (Auto) Neut % (Auto) Lymph % (Auto) [place] % (Auto) Eos % (Auto) Baso % (Auto) Lymph # (Auto) [place] # (Auto) Eos # (Auto) Baso # (Auto) Abs Immat Gran (auto) Absolute Neuts (auto) Absolute Nucleated RBC Nucleated RBC % (auto) PT INR APTT Anion Gap 14 Estim Creat Clear Calc 34.7 Estimated GFR 49 Random Glucose 97 Lactic Acid 0.7 Calcium 9.2 Magnesium 2.1 Total Bilirubin 0.6 Direct Bilirubin 0.2 AST 22 ALT 10 Alkaline Phosphatase 54 Total Creatine Kinase 210 H Troponin I High Sens 31.1 Total Protein 6.7 Albumin 4.1 Influenza Type A (PCR) Influenza Type B (PCR) RSV RNA Qual (PCR) SARS-CoV-2 RNA (RT-PCR) 09/12/22 09/12/22 09/12/22 12:27 14:59 14:59 MCV 91.6 MCH 29.7 MCHC 32.4 RDW 14.9 Plt Count 125 L MPV 11.2 Immature Gran % (Auto) 0.3 Neut % (Auto) 74.2 H Lymph % (Auto) 11.1 L [place] % (Auto) 13.9 H Eos % (Auto) 0.2 Baso % (Auto) 0.3 Lymph # (Auto) 0.7 L [place] # (Auto) 0.9 Eos # (Auto) 0.0 Baso # (Auto) 0.0 Abs Immat Gran (auto) 0.02 Absolute Neuts (auto) 4.5 Absolute Nucleated RBC 0.000 Nucleated RBC % (auto) 0.0 PT INR APTT 35.3 Anion Gap Estim Creat Clear Calc Estimated GFR Random Glucose Lactic Acid Calcium Magnesium Total Bilirubin Direct Bilirubin AST ALT Alkaline Phosphatase Total Creatine Kinase Troponin I High Sens 50.1 H D Total Protein Albumin Influenza Type A (PCR) Influenza Type B (PCR) RSV RNA Qual (PCR) SARS-CoV-2 RNA (RT-PCR) 09/12/22 09/12/22 14:59 18:30 MCV MCH MCHC RDW Plt Count MPV Immature Gran % (Auto) Neut % (Auto) Lymph % (Auto) [place] % (Auto) Eos % (Auto) Baso % (Auto) Lymph # (Auto) [place] # (Auto) Eos # (Auto) Baso # (Auto) Abs Immat Gran (auto) Absolute Neuts (auto) Absolute Nucleated RBC Nucleated RBC % (auto) PT INR APTT Anion Gap 16 Estim Creat Clear Calc 38.7 Estimated GFR 55 Random Glucose 95 Lactic Acid Calcium 8.6 D Magnesium Total Bilirubin Direct Bilirubin AST ALT Alkaline Phosphatase Total Creatine Kinase Troponin I High Sens 72.5 H Total Protein Albumin Influenza Type A (PCR) Influenza Type B (PCR) RSV RNA Qual (PCR) SARS-CoV-2 RNA (RT-PCR) Assessment and Plan (1) COVID-19: Status: Acute (2) NSTEMI (non-ST elevated myocardial infarction): Status: Acute Plan 87-year-old male with history hypercholesterolemia, hypertension, TIA, and hx strangulated inguinal hernia s/p small bowel resection with hernia repair admitted for management of NSTEMI #NSTEMI--no chest pain, or heart failure, HD stable -EKG with new t wave inversions in anterolateral leads, new compared to EKG 10/2018. No HARVEY or ST depressions -Trop 31.1--> 50.1-->72 -Therapeutic lovenox 60mg BID -Given asa 325mg ND. Continue asa 81mg qd, metoprolol 12.5 bid -cardiology following #COVID-19 -No hypoxia- steroids and remdesivir not indicated -Airborne/contact precautions -Symptomatic management #Metabolic encephalopathy -r/t COVID-19 -Head CT negative -Monitor mentation -Keep NPO for now, pending swallow eval #Hx TIA -continue asa #HTN- It doesn't appear that he's on any meds #HLD -Continue home meds #CKD stage 3 -renal fx baseline #Anemia of chronic disease -H/H, above transfusion threshold DVT prophylaxis- on therapeutic lovenox Full code- discussed with patient's , NPO pending swallow eval He desn't appear to be taking much at home Need for inpatient: management for NSTEMI, covid. PT eval before discharge Time Spent With Patient Time: Total time managing care of this patient today ____ minutes. Quality Stroke Does the patient have a stroke diagnosis?: No VTE Prior VTE?: No VTE Risk Level:: Medical - moderate - high VTE Device Contraindication: Treatment Not Indicated VTE Drug Contraindication: N/A - Med Ordered
[2022-09-13] MEDS: Aspirin Enteric Coated 81 MG TABLET.DR PO (09:52)
[2022-09-13] MEDS: Metoprolol Tartrate 12.5 MG HALFTAB PO ×2 (09:53→20:23)
--- NOTE | 2022-09-13 12:26 | MHC.CM.PN ---
EMR REVIEWED, D/T COVID STATUS CM CONTACTED PT'S MELANIE AT 11:35 AT NUMBER ON FILE, MELANIE REQUESTS CM BE SENT VIA MAIL AND REPORTS PT WALKS W/CANE, HAS GRAB BAR BY TOILET, GIVES SELF BED BATH HE HAS DIFFICULTY GETTING IN AND OUT OF OLD FASHIONED TUB, HAS TOUCHED BY AN [employer] FOR [employer] MANAGER EVERY TUE OR TUESDAY FOR CLEANING/ERRANDS, L[facility]LORD ALSO ASSISTS PT AND MELANIE W/NEEDS WELL AND MELANIE REPORTS IS HELPING HER W/MEDS ETC WHILE PT IS HOSPITA, MELANIE DENIES ANY OTHER SERVICES IN HOME. MELANIE REPORTS [facility] [place] [facility] UNSURE OF NAME, IS FOLLOWED BY [facility] PT HAS A HCP AND MODERNA X4 ON FILE FROM PREVIOUS ADMIT. CM WILL FOLLOW UP W/PT PRIOR TO D/C REGARDING HCP.
--- NOTE | 2022-09-13 13:19 | MHC.SL.SWA ---
Speech Pathologist Impression: Oropharyngeal dysphagia, risk of aspiration Risk of Aspiration Due to: Neurological Condition Dysphasia Diet Status: S/s of aspiration w/ thin liquid Liquid Consistency and Strategies for Safe Swallow: Liquid Intake Recommendation: Honey Thick Liquid Intake Strategies: Small Sips No Straws Solid Food Consistency: Dietary Recommendations: Pureed (NDD1) Additional Modifications to Solid Foods: Recommend UPGRADE from NPO, start on PUREED (NDD1) diet with HONEY THICK liquids (NO STRAWS), pills CRUSHED in PUREE. 1:1 total supervision and strict aspiration precautions. Notified care team (MD, RN, RD) of recommendations via [employer] Message. [facility]IAN will continue to follow, to re-assess potential for upgrade tomorrow if appropriate. Oral Medication Intake: Crushed with Puree Please contact the pharmacy regarding appropriate crushable or liquid drug formulations that are available whenever modified delivery is recommended. Compensatory Strategies and Precautions to be Taken for Safe Swallow: Sitting Upright (90 deg) Double Swallow No Straw Liquids from Cup Liquids from Spoon Small Bites and Sips Rate of Ingestion Change Avoid Specific Foods Supervision While Eating and Drinking for Safe Swallow: Total Supervision (1:1) Foods to Avoid: Mixed textures Swallowing Recommended Treatments: Compens. Strategy Educat. Recommendation for Speech: Inpatient Speech Therapy Supervisor [employer] Clinican/Clinical Fellow: No Supervisory Statement: I have reviewed and agree with the student/clinical fellow's documentation: N/A Speech Language Pathologist: Ana Calderon M.A., [facility]
--- NOTE | 2022-09-13 13:29 | PM.PNCARD ---
Subjective Subjective Date of Service: 09/13/22 Interval history: Seen examined at bedside. COVID positive. Quite frail appearing. Denying any symptoms. Physical Exam Vital Signs: Last Vital Signs Temp 98.0 F 09/13/22 11:07 Pulse 69 09/13/22 11:07 Resp 20 09/13/22 11:07 BP 134/65 09/13/22 11:07 Pulse Ox 92 09/13/22 11:07 O2 Del Method Room Air 09/13/22 11:07 BMI result Body Mass Index 19.6 GENERAL APPEARANCE: in no acute distress, frail. NECK: no carotid bruit, no jugular venous distention. SKIN: no suspicious lesions, warm and dry. HEART: no murmurs, regular rate and rhythm. LUNGS: clear to auscultation bilaterally. ABDOMEN: soft, nontender. EXTREMITIES: no edema. PERIPHERAL PULSES: equal. NEUROLOGIC: No gross deficits, AAO X 3 Objective Labs and Meds 09/12/22 14:59 09/12/22 14:59 Lab results: Laboratory Results - last 24 hr 09/12/22 09/12/22 09/12/22 14:59 14:59 14:59 WBC 6.1 RBC 3.23 L Hgb 9.6 L Hct 29.6 L MCV 91.6 MCH 29.7 MCHC 32.4 RDW 14.9 Plt Count 125 L MPV 11.2 Immature Gran % (Auto) 0.3 Neut % (Auto) 74.2 H Lymph % (Auto) 11.1 L [place] % (Auto) 13.9 H Eos % (Auto) 0.2 Baso % (Auto) 0.3 Lymph # (Auto) 0.7 L [place] # (Auto) 0.9 Eos # (Auto) 0.0 Baso # (Auto) 0.0 Abs Immat Gran (auto) 0.02 Absolute Neuts (auto) 4.5 Absolute Nucleated RBC 0.000 Nucleated RBC % (auto) 0.0 APTT 35.3 Sodium 134 L Potassium 3.8 Chloride 102 Carbon Dioxide 20 L Anion Gap 16 BUN 21 H Creatinine 1.24 Estim Creat Clear Calc 38.7 Estimated GFR 55 Random Glucose 95 Calcium 8.6 D Troponin I High Sens 09/12/22 18:30 WBC RBC Hgb Hct MCV MCH MCHC RDW Plt Count MPV Immature Gran % (Auto) Neut % (Auto) Lymph % (Auto) [place] % (Auto) Eos % (Auto) Baso % (Auto) Lymph # (Auto) [place] # (Auto) Eos # (Auto) Baso # (Auto) Abs Immat Gran (auto) Absolute Neuts (auto) Absolute Nucleated RBC Nucleated RBC % (auto) APTT Sodium Potassium Chloride Carbon Dioxide Anion Gap BUN Creatinine Estim Creat Clear Calc Estimated GFR Random Glucose Calcium Troponin I High Sens 72.5 H Progress Note: A&P Assessment and plan (1) COVID-19: Status: Acute (2) NSTEMI (non-ST elevated myocardial infarction): Status: Acute Plan [age] year gentleman presented with COVID-19 infection. He has asymptomatic EKG changes with the cardiac T-wave inversions. Troponins are 50 and 72. He is denying any symptoms at this point. He underwent echocardiography today. We will review that. Continue Lovenox for 48 hours. He already had CT angiogram to rule out pulmonary embolism. Thank you for allowing me to participate in the care of your patient. Please feel free to contact me if you have any questions. Time Spent With Patient Time: Total time managing care of this patient today __20__ minutes. Progress Note: Quality Stroke Does the patient have a stroke diagnosis?: No Procedures Date of Service Date of Service: 09/13/22
[2022-09-14] VITALS (7 sets, daily range): BP systolic 122–159; BP diastolic 59–78; PULSE 52–78; RESP 15–20; TEMP 36.5–37.1; O2SAT 93–97
[2022-09-14] MEDS: Enoxaparin Sodium 60 MG/0.6 ML SYRINGE SUBCUT ×2 (02:11→14:54)
[2022-09-14] MEDS: Aspirin Enteric Coated 81 MG TABLET.DR PO (08:25)
[2022-09-14] MEDS: Metoprolol Tartrate 12.5 MG HALFTAB PO (08:25)
[2022-09-14] MEDS: 0.9 % Sodium Chloride Flush 3 ML SYRINGE IVFLUSH ×2 (08:25→15:38)
[2022-09-14] MEDS: Metoprolol Tartrate 25 MG TABLET PO (14:54)
[2022-09-14] MEDS: Dextrose 5 % and 0.9 % NaCl 1,000 ML 80 ML IVCONT (15:34)
[2022-09-14] MEDS: Lidocaine 4 % Patch ADH..PATCH 1 PATCH TRANSDERMA (15:35)
[2022-09-14] MEDS: Acetaminophen 325 MG TABLET 975 MG PO (15:37)
--- NOTE | 2022-09-14 16:48 | P.PNIM_ITS ---
Subjective Subjective Date of Service: 09/15/22 Interval History: f/u on NSTEMI, covid Review of Systems improving ,denies any chest pain or sob Physical Exam Vital Signs: Vital Signs: Last Vital Signs Temp 97.8 F 09/14/22 15:05 Pulse 60 09/14/22 15:05 Resp 18 09/14/22 15:05 BP 159/75 H 09/14/22 15:05 Pulse Ox 97 09/14/22 15:05 O2 Del Method Room Air 09/14/22 15:05 BMI result Body Mass Index 19.6 General: AO X 2, no acute distress Resp:? CTA bilateral CVS: S1,S2,RRR GI: +BS, NT, no distention Skin: No rash Neuro:? motor grossly intact Psych: appropriate affect Objective Data Active Medications Acetaminophen (Acetaminophen Supp 650 Mg Supp.Rect) 650 mg LA Q6H PRN PRN Reason: Pain, Mild, fever Last Admin: 09/13/22 09:52 Dose: 650 mg Documented By: MITCHELL Acetaminophen (Acetaminophen 325 Mg Tablet) 975 mg PO Q8H [facility] Last Admin: 09/14/22 15:37 Dose: 975 mg Documented By: FLORENTINO Aspirin (Aspirin Enteric Coated 81 Mg Tablet.Dr) 81 mg PO DAILY [facility] Last Admin: 09/14/22 08:25 Dose: 81 mg Documented By: FLORENTINO Calcium Carbonate (Calcium Carbonate 500 Mg Tablet) 250 mg PO DAILY [facility] Last Admin: 09/14/22 08:24 Dose: 250 mg Documented By: FLORENTINO Enoxaparin Sodium (Enoxaparin Sodium 60 Mg/0.6 Ml Syringe) 60 mg SUBCUT Q12H [facility] Last Admin: 09/14/22 14:54 Dose: 60 mg Documented By: FLORENTINO Guaifenesin (Guaifenesin 200 Mg/10 Ml 10 Ml Liquid) 10 ml PO Q6H PRN PRN Reason: Cough Dextrose/Sodium Chloride (D5ns) 1,000 mls @ 80 mls/hr IVCONT .[id number] [facility] Last Admin: 09/14/22 15:34 Dose: 80 mls/hr Documented By: FLORENTINO Lidocaine (Lidocaine 4 % Patch Adh..Patch) 1 patch TRANSDERMA DAILY [facility]; Protocol Last Admin: 09/14/22 15:35 Dose: 1 patch Documented By: FLORENTINO Metoprolol Tartrate (Metoprolol Tartrate 25 Mg Tablet) 25 mg PO TID [facility]; Protocol Last Admin: 09/14/22 14:54 Dose: 25 mg Documented By: FLORENTINO Pharmacy Consult (Consult Rx Perform Med Rec) 1 each MISCELLANE ONCE PRN PRN Reason: Consult order Sodium Chloride (0.9 % Sodium Chloride Flush 3 Ml Syringe) 3 ml IVFLUSH QSHIFT [facility] Last Admin: 09/14/22 15:38 Dose: 3 ml Documented By: FLORENTINO Labs 09/12/22 14:59 09/12/22 14:59 Microbiology Microbiology Results: Microbiology 09/12/22 09:16 Blood Culture - Preliminary Blood - Venous No growth after 48 hours. 09/12/22 09:16 Blood Culture - Preliminary Blood - Venous No growth after 48 hours. Assessment and Plan (1) NSTEMI (non-ST elevated myocardial infarction): Status: Acute (2) COVID-19: Status: Acute Plan 87-year-old male with history hypercholesterolemia, hypertension, TIA, and hx strangulated inguinal hernia s/p small bowel resection with hernia repair admitted for management of NSTEMI NSTEMI--no chest pain, or heart failure, HD stable -EKG with new t wave inversions in anterolateral leads, new compared to EKG 10/2018. No HARVEY or ST depressions -Trop 31.1--> 50.1-->72 continue Continue asa 81mg qd, metoprolol 12.5 bid,lovenox 60mg BID -cardiology following COVID-19 -No hypoxia- steroids and remdesivir not indicated -Airborne/contact precautions -Symptomatic management Metabolic encephalopathy -r/t COVID-19 -Head CT negative -Monitor mentation swallow eval-diet:mech ground/honey thick Hx TIA-continue asa HTN- It doesn't appear that he's on any meds HLD-Continue home meds CKD stage 3-renal fx baseline Anemia of chronic disease-H/H, above transfusion threshold DVT prophylaxis- on therapeutic lovenox Full code- discussed with patient's ,He desn't appear to be taking much at home Need for inpatient: management for NSTEMI, covid- need AC for 48 hrs , cardiology eval. Time Spent With Patient Time: Total time managing care of this patient today ____ minutes. Quality Stroke Does the patient have a stroke diagnosis?: No VTE Prior VTE?: No VTE Risk Level:: Medical - moderate - high VTE Device Contraindication: Treatment Not Indicated VTE Drug Contraindication: N/A - Med Ordered
[2022-09-14] MEDS: Megestrol Acetate 400 MG/10 ML ORAL.SUSP PO (17:30)
[2022-09-15] VITALS (7 sets, daily range): BP systolic 105–145; BP diastolic 53–61; PULSE 54–78; RESP 18–20; TEMP 36.2–37.1; O2SAT 93–97
[2022-09-15] MEDS: Enoxaparin Sodium 60 MG/0.6 ML SYRINGE SUBCUT (03:50)
[2022-09-15] MEDS: Clopidogrel Bisulfate 75 MG TABLET PO (09:15)
[2022-09-15] MEDS: Acetaminophen 325 MG TABLET 975 MG PO ×2 (09:15→16:34)
[2022-09-15] MEDS: 0.9 % Sodium Chloride Flush 3 ML SYRINGE IVFLUSH (09:16)
[2022-09-15] MEDS: Lidocaine 4 % Patch ADH..PATCH 1 PATCH TRANSDERMA (09:22)
--- NOTE | 2022-09-15 11:16 | PM.PNCARD ---
Subjective Subjective Date of Service: 09/14/22 Interval history: Patient was seen and examined at bedside on 09/14/22 Physical Exam Vital Signs: Last Vital Signs Temp 97.1 F 09/15/22 11:04 Pulse 63 09/15/22 11:04 Resp 20 09/15/22 11:04 BP 105/54 L 09/15/22 11:04 Pulse Ox 93 09/15/22 11:04 O2 Del Method Room Air 09/15/22 11:04 O2 Flow Rate 93 09/15/22 11:04 BMI result Body Mass Index 19.6 GENERAL APPEARANCE: in no acute distress, frail. NECK: no carotid bruit, no jugular venous distention. SKIN: no suspicious lesions, warm and dry. HEART: no murmurs, regular rate and rhythm. LUNGS: clear to auscultation bilaterally. ABDOMEN: soft, nontender. EXTREMITIES: no edema. PERIPHERAL PULSES: equal. NEUROLOGIC: No gross deficits, AAO X 3 Objective Labs and Meds 09/12/22 14:59 09/12/22 14:59 Progress Note: A&P Assessment and plan (1) COVID-19: Status: Acute (2) NSTEMI (non-ST elevated myocardial infarction): Status: Acute Plan [age] year gentleman presenting with COVID-19 infection and precordial biphasic T-waves evolving into T-wave inversions. He is quite frail looking gentleman and does not have any symptoms whatsoever. He had echocardiogram which did not show any LV dysfunction or wall motion abnormality. His troponins are 31, 50 and 72. He is are a candidate for invasive assessment due to frailty and lack of symptoms. His EKG changes are concerning for LAD ischemia until proven otherwise. He has been treated with enoxaparin for 48 hours. I think he should be on aspirin and Plavix going forward. He had PE ruled out with CT scan already. I think will conservatively treat this gentleman and see him in follow-up. Depending on symptoms we will do further evaluation. Currently I do not think that he is a good candidate to do diagnostic angiography. Signing off. Thank you for allowing me to participate in the care of your patient. Please feel free to contact me if you have any questions. Time Spent With Patient Time: Total time managing care of this patient today ____ minutes. Progress Note: Quality Stroke Does the patient have a stroke diagnosis?: No Procedures Date of Service Date of Service: 09/14/22
--- NOTE | 2022-09-15 11:33 | MHC.CM.PN ---
PER HOSPITALIST PT MEDICALLY CLEARED FOR D/C HOWEVER CM HAS NOT SECURED A COVID/STR BED, [facility] FOLLOWING FOR AVAILABILITY, CM WILL CONT TO FOLLOW D/C NEEDS AND EXPAND REFERRAL.
[2022-09-15] MEDS: Dextrose 5 % and 0.9 % NaCl 1,000 ML 80 ML IVCONT (12:08)
--- NOTE | 2022-09-15 12:52 | HO.PM.IMPN ---
Subjective Subjective Date of Service: 09/16/22 Interval History: f/u on NSTEMI, covid Review of Systems improving ,denies any chest pain or sob Physical Exam Vital Signs: Vital Signs: Last Vital Signs Temp 97.1 F 09/15/22 11:04 Pulse 63 09/15/22 11:04 Resp 20 09/15/22 11:04 BP 105/54 L 09/15/22 11:04 Pulse Ox 93 09/15/22 11:04 O2 Del Method Room Air 09/15/22 11:04 O2 Flow Rate 93 09/15/22 11:04 BMI result Body Mass Index 19.6 General: AO X 2, no acute distress Resp:? CTA bilateral CVS: S1,S2,RRR GI: +BS, NT, no distention Skin: No rash Neuro:? motor grossly intact Psych: appropriate affect Objective Data Active Medications Acetaminophen (Acetaminophen Supp 650 Mg Supp.Rect) 650 mg MA Q6H PRN PRN Reason: Pain, Mild, fever Last Admin: 09/13/22 09:52 Dose: 650 mg Documented By: MITCHELL Acetaminophen (Acetaminophen 325 Mg Tablet) 975 mg PO Q8H [facility] Last Admin: 09/15/22 09:15 Dose: 975 mg Documented By: JAIME Aspirin (Aspirin Enteric Coated 81 Mg Tablet.Dr) 81 mg PO DAILY [facility] Last Admin: 09/15/22 09:16 Dose: Not Given Documented By: JAIME Non-Admin Reason: cant crush med Calcium Carbonate (Calcium Carbonate 500 Mg Tablet) 250 mg PO DAILY [facility] Last Admin: 09/15/22 09:16 Dose: 250 mg Documented By: JAIME Clopidogrel Bisulfate (Clopidogrel Bisulfate 75 Mg Tablet) 75 mg PO DAILY [facility] Last Admin: 09/15/22 09:15 Dose: 75 mg Documented By: JAIME Guaifenesin (Guaifenesin 200 Mg/10 Ml 10 Ml Liquid) 10 ml PO Q6H PRN PRN Reason: Cough Dextrose/Sodium Chloride (D5ns) 1,000 mls @ 80 mls/hr IVCONT .[id number] [facility] Last Admin: 09/15/22 12:08 Dose: 80 mls/hr Documented By: JAIME Lidocaine (Lidocaine 4 % Patch Adh..Patch) 1 patch TRANSDERMA DAILY [facility]; Protocol Last Admin: 09/15/22 09:22 Dose: 1 patch Documented By: JAIME Metoprolol Tartrate (Metoprolol Tartrate 25 Mg Tablet) 25 mg PO TID [facility]; Protocol Last Admin: 09/15/22 09:39 Dose: Not Given Documented By: JAIME Non-Admin Reason: HR below 60 Pharmacy Consult (Consult Rx Perform Med Rec) 1 each MISCELLANE ONCE PRN PRN Reason: Consult order Sodium Chloride (0.9 % Sodium Chloride Flush 3 Ml Syringe) 3 ml IVFLUSH QSHIFT [facility] Last Admin: 09/15/22 09:16 Dose: 3 ml Documented By: JAIME Labs 09/12/22 14:59 09/12/22 14:59 Microbiology Microbiology Results: Microbiology 09/12/22 09:16 Blood Culture - Preliminary Blood - Venous No growth after 48 hours. 09/12/22 09:16 Blood Culture - Preliminary Blood - Venous No growth after 48 hours. Assessment and Plan (1) NSTEMI (non-ST elevated myocardial infarction): Status: Acute (2) COVID-19: Status: Acute Plan 87-year-old male with history hypercholesterolemia, hypertension, TIA, and hx strangulated inguinal hernia s/p small bowel resection with hernia repair admitted for management of NSTEMI NSTEMI--no chest pain, or heart failure, HD stable -EKG with new t wave inversions in anterolateral leads, new compared to EKG 10/2018. No HARVEY or ST depressions -Trop 31.1--> 50.1-->72 continue Continue asa 81mg qd, metoprolol 12.5 bid,completed lovenox ,added plavix -cardiology following COVID-19 -No hypoxia- steroids and remdesivir not indicated -Airborne/contact precautions -Symptomatic management Metabolic encephalopathy -r/t COVID-19 -Head CT negative -Monitor mentation swallow eval-diet:mech ground/honey thick Hx TIA-continue asa HTN- It doesn't appear that he's on any meds HLD-Continue home meds CKD stage 3-renal fx baseline Anemia of chronic disease-H/H, above transfusion threshold DVT prophylaxis- on therapeutic lovenox pt recomended rehab. Full code- discussed with patient's ,He desn't appear to be taking much at home Need for inpatient: management for NSTEMI, covid- need placement Time Spent With Patient Time: Total time managing care of this patient today ____ minutes. Quality Stroke Does the patient have a stroke diagnosis?: No VTE Prior VTE?: No VTE Risk Level:: Medical - moderate - high VTE Device Contraindication: Treatment Not Indicated VTE Drug Contraindication: N/A - Med Ordered
--- NOTE | 2022-09-15 15:57 | MHC.SL.SWA ---
Addendum entered and electronically signed by Ana Calderon MA, CCC-BRICK SORTER 09/15/22 17:57: D.S. Original Note: Risk of Aspiration Due to: Neurological Condition Dysphasia Diet Status: No change Liquid Consistency and Strategies for Safe Swallow: Liquid Intake Recommendation: Honey Thick Liquid Intake Strategies: Small Sips No Straws Solid Food Consistency: Dietary Recommendations: Grnd/Mech Altered (NDD2) Oral Medication Intake: Crushed with Puree Please contact the pharmacy regarding appropriate crushable or liquid drug formulations that are available whenever modified delivery is recommended. Compensatory Strategies and Precautions to be Taken for Safe Swallow: Sitting Upright (90 deg) Small Bites and Sips Alternate Liquids/Solids Rate of Ingestion Change Supervision While Eating and Drinking for Safe Swallow: Intermittent Supervision Foods to Avoid: Mixed textures Swallowing Recommended Treatments: Compens. Strategy Educat. Recommendation for Speech: Inpatient Speech Therapy Pt not appropriate for upgrade d/t limited trials. Recommend pt continue with GROUND/MECH ALTERED (NDD2) solids, HONEY thick liquids (NO STRAWS), pills CRUSHED in PUREE. 1:1 total supervision and strict aspiration precautions. Thin liquids via teaspoon between meals by RN or BRICK SORTER okay. BRICK SORTER to follow to monitor toleration of diet and upgrade diet if warranted. [employer] Clinican/Clinical Fellow: Yes: Allyssa Waddell M.A., CF-BRICK SORTER
[2022-09-16] MEDS: Acetaminophen 325 MG TABLET 975 MG PO ×2 (01:05→07:53)
[2022-09-16] MEDS: Dextrose 5 % and 0.9 % NaCl 1,000 ML 80 ML IVCONT (01:09)
[2022-09-16] MEDS: 0.9 % Sodium Chloride Flush 3 ML SYRINGE IVFLUSH ×2 (01:11→07:54)
[2022-09-16 04:00] VITALS: BP 124/58; PULSE 75; RESP 18; TEMP 36.4; O2SAT 95
[2022-09-16 07:17] VITALS: BP 107/58; PULSE 69; RESP 17; TEMP 36.2; O2SAT 97
[2022-09-16] MEDS: Aspirin Enteric Coated 81 MG TABLET.DR PO (07:56)
[2022-09-16] MEDS: Lidocaine 4 % Patch ADH..PATCH 1 PATCH TRANSDERMA (07:56)
[2022-09-16] MEDS: Clopidogrel Bisulfate 75 MG TABLET PO (07:58)
[2022-09-16] MEDS: Metoprolol Tartrate 12.5 MG HALFTAB PO (09:20)
[2022-09-16 11:08] VITALS: BP 107/57; PULSE 65; RESP 16; TEMP 36.1; O2SAT 97
--- NOTE | 2022-09-16 12:17 | PM.DS ---
DS: Providers Provider Date of Service: 09/16/22 Date of admission: 09/12/22 14:09 Date of discharge: 09/16/22 Primary care physician: Unknown Physician Consults: 09/12/22 13:15 Consult to Cardiology Stat Consulting Provider: Adam Armando Reason for consultation: nstemi DS: Diagnosis Discharge Diagnosis (1) NSTEMI (non-ST elevated myocardial infarction): Status: Acute (2) COVID-19: Status: Acute DS: Summary Hospital Course Hospital Course: 87-year-old male with history hypercholesterolemia, hypertension, TIA, and hx strangulated inguinal hernia s/p small bowel resection with hernia repair presented for evaluation of altered mental status and weakness.? The patient is alert and oriented x3 but is unable to provide much history and does seem confused.? Call placed to patient's , with whom he lives and is HCP according to her, who reports patient was noted to be generally weak last night and then when she went to his room to wake him this morning was found to be confused and quite weak unable to get out of bed so she called EMS.? Per ED report, EMS noted pulse oximetry of 85% but on arrival has been maintaining oximetry >93%.? He was noted to be febrile to 103.4 on arrival, vitals otherwise stable.? Given 650 mg Tylenol per rectum.? New leukocytosis.? Normocytic anemia H/H 9.6/29.4%, consistent with baseline.? Platelets 134.? PT 14.5, INR 1.3.? Renal function baseline, electrolyte levels normal.? CK 210, initial troponin 31.1, repeat 50.1.? EKG with T-wave inversions in anterolateral leads, new when compared to prior EKG from 10/2018.? Urinalysis unremarkable.? Positive for COVID-19.? Head CT is without any acute intracranial abnormality.? CXR is negative.? CTA chest is negative for any pulmonary embolism but does show mild dependent atelectasis in the bases bilaterally.? No other focal consolidation or density. The patient is able tell me he has had a cough and denies sob or chest pain, but is not able to provide other history. ED provider discussed case with cardiology who consulted on patient and is recommending admission for NSTEMI. In ED, pt ordered for therapeutic lovenox. Hospital course: 87-year-old male came to the hospital because of generalized weakness and found to be confused: Further workup reviewed NSTEMI, COVID positive. eleavted tropnins ,ekg changes-?precordial biphasic T-waves evolving into T-wave inversions. cta negative Subsequently patient was started on aspirin, beta-madan and lovenox and clopidogrel added. Patient completed 48 hour Lovenox. please check lipid panel and lft's in rehab ,consider adding statin Cardiology evaluated the patient: Recommended conservative management considering overall general condition of the patient . Patient mental status garcia(thought to be metabolic encephalopathy) at his baseline-probable initial confusion related to acute sickness in setting of an NSTEMI and as well as had COVID. covid: no hypoxia -?steroids and remdesivir not indicated. Patient will be going to rehab. plan: continue asa,plavix ,bb. follow up [facility] cardiology outpatient Assessment and plan coordination time spent 50 minute. Time Spent with Patient Time attestation: Total time managing care of this patient today ____ minutes. Discharge coordination time: Greater than 30 minutes Quality: Safe Use of Opioids Does Pt have an Active Cancer Diagnosis on the Problem List?: No Quality: Stroke Does the patient have a stroke diagnosis?: No Physical Exam Vital Signs: Vital Signs: Last Vital Signs Temp 96.9 F 09/16/22 11:08 Pulse 65 09/16/22 11:08 Resp 16 09/16/22 11:08 BP 107/57 L 09/16/22 11:08 Pulse Ox 97 09/16/22 11:08 O2 Del Method Room Air 09/16/22 11:08 O2 Flow Rate 93 09/15/22 11:04 BMI result Body Mass Index 19.6 General: AO X 3 improving, no acute distress Resp:? CTA bilateral CVS: S1,S2,RRR GI: +BS, NT, no distention Skin: No rash Neuro:? motor grossly intact Psych: appropriate affect DS: Data Data Completed and Pending Labs on day of discharge: Preliminary micro results at discharge 09/12/22 09:16 Blood Culture - Preliminary Blood - Venous No growth after 48 hours. 09/12/22 09:16 Blood Culture - Preliminary Blood - Venous No growth after 48 hours. Imaging Chest x-ray: Radiologist's impression: ITS Impressions Head CT 09/12/22 09:04 IMPRESSION: Chronic microvascular ischemic changes with no CT evidence of acute intracranial abnormality. Chest X-Ray 09/12/22 09:06 IMPRESSION: No acute pulmonary pathology. Chest CTA 09/12/22 10:57 IMPRESSION: No evidence of pulmonary embolism. Mild dependent atelectasis at the lung bases. VTE: negative Discharge Plan Discharge Anticipated Discharge Date/Time: 09/16/22 12:03 Patient Disposition: Xfer SNF Discharge Diagnosis: nstemi, covid Referrals: [facility] [Outside] - 1 Day (SHORT TERM REHAB) Physician,Unknown J [Primary Care Provider] - 1 Week Discharge Medications: New clopidogrel 75 mg Tablet 75 mg PO DAILY Qty: 30 0RF aspirin 81 mg Tablet,Delayed Release (Dr/Ec) 81 mg PO DAILY Qty: 30 0RF metoprolol tartrate 25 mg tablet 12.5 mg PO TID Qty: 1 0RF Continued calcium 250 mg Tablet 250 mg PO DAILY vitamin E Discharge Orders: Discharge Order (Routine); Ordered 09/16/22 Ordered By: Emilia Alexandre Diet: Advance to usual diet Activity on Discharge: As tolerated Stand Alone Forms: Patient Portal Discharge page Care Plan Goals: 87-year-old male came to the hospital because of generalized weakness and found to be confused: Further workup reviewed NSTEMI, COVID positive. Subsequently patient was started on aspirin, beta-madan and lovenox and clopidogrel added. Patient completed 48 hour Lovenox. please check lipid panel and lft's in rehab ,consider adding statin Cardiology evaluated the patient: Recommended conservative management considering overall general condition of the patient . Patient mental status garcia at his baseline-probable initial confusion related to acute sickness in setting of an NSTEMI and as well as had COVID. Patient will be going to rehab. Health Concerns: As above. Plan of Treatment: As above. Assessment: As above.
--- NOTE | 2022-09-16 13:34 | MHC.SL.SWA ---
Speech Pathologist Impression: Risk of Aspiration Due to: Neurological Condition Dysphasia Diet Status: Recommend DOWNGRADE diet to PUREE(NDD1), as patient is observed to be poorly managing ground consistency diet. Recommend continue on HONEY THICK liquids with Pillls Crushed in PUREE. Recommend patient have 1-1 assistance and supervision at all meals Liquid Consistency and Strategies for Safe Swallow: Liquid Intake Recommendation: Honey Thick Liquid Intake Strategies: Small Sips No Straws Solid Food Consistency: Dietary Recommendations: Pureed (NDD1) Additional Modifications to Solid Foods: Patient requires 1-1 feed/assist. Assure that patient has swallowed bite of food before presenting more, and check for pocketing of food. Alternate bites of food with sip of liquid to help clear any residual in mouth. Do not attempt if patient is lethargic, and discontinue if patient is excessively pocketing food. Monitor for signs of aspiration, discontinue if patient is coughing. Oral Medication Intake: Crushed with Puree Please contact the pharmacy regarding appropriate crushable or liquid drug formulations that are available whenever modified delivery is recommended. Compensatory Strategies and Precautions to be Taken for Safe Swallow: Sitting Upright (90 deg) No Straw Liquids from Cup Small Bites and Sips Alternate Liquids/Solids Rate of Ingestion Change Oral Check Supervision While Eating and Drinking for Safe Swallow: Total Assistance (1:1) Foods to Avoid: Mixed textures Swallowing Recommended Treatments: Compens. Strategy Educat. Recommendation for Speech: Inpatient Speech Therapy Comment: Patient was observed/assisted with lunch today. Patient was alone in room with lunch tray in front of him. He appeared to have independently taken a few bites of pudding before the [employer] arrived. Patient needed and responded to 1-1 assistance to eat his meal, requires this level of supervision given age, confusion and aspiration risk. Note: Patient was upgraded on 09/14/22 by [employer] to ground/mechanical (NDD2) and continued on Honey Thick Liquids after PO trials. Patient had meal of ground turkey, ground broccoli and mashed potatoes accompanied by gravy. [employer] gave patient bites of the ground turkey combined with potato and gravy. On each bite, patient produced a prolonged anterior munching pattern of the ground food, followed by partial swallow of the bolus, then continued munching of the residual for lengthy period. Patient was given sip of liquid to attempt to clear residual, with partial clearance achieved (Patient noted to continue to munch on small residual of ground meat after swallow). After several bites of mixed ground food, slow disorganized mastication, piece meal swallow with ample residual assisted only partially by sips of liquids, patient produced a repeated cough after swallow. Patient was given bite of mashed potatoes, with patient noted to gag on the texture, pushing puree to front of mouth and mashing it with tongue before swallowing. When given bites of pudding, patient also prolonged the oral phase with mashing the puree with tongue before swallowing, with mild residual after swallow, cleared by second swallow. However on puree, oral phase was significantly less prolonged, patient managed bolus and residual well with second swallow, and benefited from sip of liquid to clear all food from mouth. After eating about half of the pudding, patient declined further food. Patient drank one of the honey thick cups of juice during the meal. As [employer] was preparing to leave, patient was noted to spit crumb of meat from mouth which had been pocketed. Recommend DOWNGRADE diet to PUREE, as patient is observed to be poorly managing ground consistency diet. Recommend patient have 1-1 assistance and supervision at all meals. MD, RN, RD notified by secure text, white board in room adjusted with change, [employer] changed diet in expanse. Frequency/Duration: Date Range for Service Req: Timeline to reassess: Dispatcher Service Clinican/Clinical Fellow: No Supervisory Statement: I have reviewed and agree with the student/clinical fellow's documentation: N/A Speech Language Pathologist: Kaitlyn Solis M.A., [facility]
== END 2022-09-16 14:30 | disposition skilled nursing facility (03) | DRG 280 ==
LOC: HO.ED 13:22 → HO.EDOVER 14:29 → HO.IMC 14:56
PROVIDERS: Nurse Practitioner Family; Admitting Provider Physician Assistant; Emergency Provider Emergency Medicine; Visit Provider Internal Medicine
DX: I21.4 Non-ST elevation (NSTEMI) myocardial infarction (principal); G93.41 Metabolic encephalopathy; U07.1 COVID-19; J96.01 Acute respiratory failure with hypoxia; J12.82 Pneumonia due to coronavirus disease 2019; J98.11 Atelectasis; I12.9 Hypertensive chronic kidney disease with stage 1 through stage 4 chronic kidney disease, or unspecified chronic kidney disease; N18.30 Chronic kidney disease, stage 3 unspecified; D63.1 Anemia in chronic kidney disease; E78.00 Pure hypercholesterolemia, unspecified; Z86.73 Personal history of transient ischemic attack (TIA), and cerebral infarction without residual deficits; Z79.899 Other long term (current) drug therapy
CPT/HCPCS: 0241U; 36415; 70450; 71045; 71275; 80048; 80076; 81001; 81003; 82550; 83605; 83735; 84484; 85025; 85610; 85730; 87040; 92610; 93005; 93306; 97110; 97162; 99285; J0696; J1650; Q9957; Q9967

== ENCOUNTER 2023-06-01 08:46 | Inpatient (IN) | payer OTHER, MEDICARE, SELFPAY ==
[2023-06-01 08:55] VITALS: BP 152/70; PULSE 69; RESP 18; TEMP 36.6; O2SAT 98
[2023-06-01 09:00] VITALS: BP 142/88; BP 152/70; PULSE 68; PULSE 69; RESP 16; TEMP 36.4; O2SAT 95; O2SAT 96; BMI 21.5
--- NOTE | 2023-06-01 09:00 | ED.GENADULT ---
HPI - General Adult General Chief complaint: Weakness Stated complaint: WEAK X2 DAYS PER EMS Time Seen by Provider: 06/01/23 08:57 Source: patient and EMS Mode of arrival: EMS Limitations: other ( Poor historian) History of Present Illness HPI narrative: 87-year-old male presents for evaluation of weakness, fatigue, malaise over the past 2 days worsening. 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 Patient feels fatigued. No medical complaints other than fatigue and malaise. Denies chest pain, shortness of breath, cough, fevers, chills, headache, vision changes, dizziness, weakness. NIHSS- 0 on arrival GCS-15 Related Data Home Medications Medication Instructions Recorded Confirmed calcium 250 mg tablet 250 mg PO DAILY 09/12/22 09/12/22 vitamin E 09/12/22 Previous Rx's Medication Instructions Recorded aspirin 81 mg tablet,delayed 81 mg PO DAILY #30 tabs 09/16/22 release clopidogrel 75 mg tablet 75 mg PO DAILY #30 tabs 09/16/22 metoprolol tartrate 25 mg tablet 12.5 mg (1/2 x 25 mg) PO TID #1 tab 09/16/22 clopidogrel 75 mg tablet 75 mg PO DAILY #90 tabs 11/17/22 Allergies Allergy/AdvReac Type Severity Reaction Status Date / Time No Known Allergies Allergy Unverified 06/08/21 11:28 [No Known Allergies*] Review of Systems Review of Systems: Constitutional : No Weight loss, No Fever, No Chills, No Fatigue, No Malaise ENT/Mouth : No sore throat, No Rhinorrhea Eyes: No Eye Pain, No Swelling, No Redness Cardiovascular : No Chest Pain, No SOB, No Dyspnea on Exertion, No Orthopnea, No Edema, No Palpitations Respiratory : No Cough, No Sputum, No Wheezing Gastrointestinal : No Nausea, No Vomiting, No Diarrhea, No Constipation, No abdominal Pain, No Hematochezia, No Melena Genitourinary : No Dysuria, No Urinary Frequency, No Hematuria, Musculoskeletal : No joint pain, No Myalgias, No Joint Swelling Skin : No Skin Lesions, No rash Neuro : No Weakness, No Numbness, No Dizziness, No Headache Psych : No Anxiety/Panic, No Depression All other systems reviewed and are negative Yes all other systems are reviewed and are negative PMFSH Past Medical History Attestation statement: The following information was validated with the patient. Source: old records reviewed and nursing notes reviewed Medical History Abnormal CT scan Inguinal hernia with strangulation TIA (transient ischemic attack) Hypercholesterolemia Hypertension Surgical History History of right inguinal hernia repair Social History Social History Household Members: Spouse Housing: Unknown / Unable to assess Do you presently have visiting nurse or other home services: No Alcohol intake: former Patient Tobacco Use Status: Never used Tobacco Advance Directives: Yes Advance Directives on File: Yes Advance Directives Date on File: 09/17/22 service: Yes Current occupational status: retired Physical Exam ED Vital Signs: Vital Signs - 24 hr 06/01/23 08:55 06/01/23 09:00 Temperature 98 F 97.6 F Pulse Rate 69 69 Respiratory Rate 18 16 Blood Pressure 152/70 H 152/70 H Pulse Oximetry 98 95 Oxygen Delivery Method Room Air Room Air BMI result Body Mass Index 21.5 vital signs stable Appearance: Alert.? Oriented X3.? No acute distress.? Head: Normocephalic, atraumatic, no step-offs or deformities Eyes: Pupils equal, round and reactive to light.? Neck: Normal inspection.? Neck supple.? CVS: Normal heart rate and rhythm.? Pulses normal.? Respiratory: No respiratory distress.? Breath sounds normal.? Abdomen: Soft and nontender.? Skin: Skin warm and dry.? Normal skin color.? Normal skin turgor.? Extremities: No lower extremity edema.? No calf ttp. global weakness Neuro: Oriented X 3.? No motor deficit.? No sensory deficit. CN 2-12 intact Course Reevaluation(s) Reevaluation #1: CBC with slight normocytic anemia, slightly lower than usual therefore obtained OBS to rule out lower GI bleed. Rectal exam done with tech at bedside as witness, there is dark stool. Pending results. Chemistry unremarkable. Patient's total CPK is noted to be a 1099 he has been very sedentary over the past few days and has had increasing weakness. Will give IV fluids at this time. Patient is noted to have a urinary tract infection. Will obtain blood cultures, lactic acid give fluids and antibiotics. Plan is hospital admission Medical Decision Making Medical Decision Making [facility] Narrative: 87-year-old pleasant male presents with weakness, worsening over the past few days. No other complaints physical exam global weakness. No focal deficits. No other acute findings. At time of evaluation patient eating pudding and juice well appearing. history and physical exam concerning for possible metabolic derangements, UTI. Unlikely intracranial hemorrhage, stroke, posterior stroke, pneumonia. Plan at this time labs, imaging, urine. Differential Diagnosis Differential Diagnoses: The differential diagnosis associated with the presentation includes history and physical exam concerning for possible metabolic derangements, UTI. Unlikely intracranial hemorrhage, stroke, posterior stroke, pneumonia. Admission/Observation Consideration of admission/observation: Escalation of care including admission/observation considered unlikely Consult Healthcare Provider Management of the patient was discussed with: Hospitalist Lab Data [facility] Lab Attestation statement: I reviewed the patient's lab results. 06/01/23 09:12 06/01/23 09:12 Labs: Lab Results 06/01/23 06/01/23 06/01/23 Range/Units 09:02 09:12 09:20 WBC 10.8 (4.8-10.8) X10*3/uL RBC 3.09 L (4.60-5.80) X10*6/uL Hgb 8.9 L (14.0-18.0) g/dl Hct 27.7 L (42.0-52.0) % MCV 89.6 (80.0-98.0) fL MCH 28.8 (27.0-33.0) pg MCHC 32.1 (31.0-36.0) g/dl RDW 15.6 (11.0-16.0) % Plt Count 198 D (160-400) X10*3/uL MPV 10.9 (9.4-12.4) fL Immature Gran % (Auto) 0.6 H (0.0-0.4) % Neut % (Auto) 74.6 H (45-73) % Lymph % (Auto) 13.4 L (20-40) % [place] % (Auto) 10.9 (2-11) % Eos % (Auto) 0.2 (0-4) % Baso % (Auto) 0.3 (0-2) % Lymph # (Auto) 1.5 (1.2-4.9) X10*3/uL [place] # (Auto) 1.2 (0.1-1.2) X10*3/uL Eos # (Auto) 0.0 (0.0-0.4) X10*3/uL Baso # (Auto) 0.0 (0.0-0.2) X10*3/uL Abs Immat Gran (auto) 0.07 H (0.00-0.03) X10*3/uL Absolute Neuts (auto) 8.1 (2.0-8.3) x10*3/uL Absolute Nucleated RBC 0.000 (0.0-0.012) X10*3/uL Nucleated RBC % (auto) 0.0 (0.0-0.2) /100WBC Sodium 137 (135-145) mmol/L Potassium 4.2 (3.3-5.1) mmol/L Chloride 102 (96-108) mmol/L Carbon Dioxide 26 (22-29) mmol/L Anion Gap 13 (12-20) BUN 25 H (9-16) mg/dL Creatinine 1.22 (0.5-1.4) mg/dL Estim Creat Clear Calc 39.3 Estimated GFR 56 POC Glucose 87 (60-115) mg/dL Random Glucose 98 (60-115) mg/dL Calcium 9.7 D (8.4-10.2) mg/dL Magnesium 2.2 (1.6-2.6) mg/dL Total Bilirubin 0.6 (0.0-1.0) mg/dL AST 27 (5-37) U/L ALT 7 (0-40) U/L Alkaline Phosphatase 62 (39-117) U/L Total Creatine Kinase 1099 H (38-174) U/L Total Protein 7.1 (6.5-8.0) g/dL Albumin 3.7 (3.5-5.0) g/dL Urine Color Yellow Urine Appearance Cloudy Urine pH 7.0 (5.0-9.0) Ur Specific [place] 1.015 (1.005-1.025) Urine Protein Trace (Neg-Trace) mg/dL Urine Glucose (UA) Negative (Negative) mg/dL Urine Ketones Negative (Negative) mg/dL Urine Blood Moderate (2+) H (Negative) Urine Nitrite Positive H (Negative) Ur Leukocyte Esterase Large (3+) H (Negative) Urine RBC 6-10 H (0-2) /HPF Urine WBC >50 H (0-5) /HPF Ur Squamous Epith Cells 0-2 (0-2) /HPF Urine Bacteria 4+ (None Seen) Hyaline Casts 0-2 (0-2) /LPF COVID-19 (REZA) Negative (Negative) COVID-19 Clin Com See Note Independent Interpretation I performed an independent interpretation of an: Plain X-Ray Radiology Impression Discussion of test interpretation with radiology: I have reviewed the radiologist's reading. Independent Historian Clinical information obtained from an independent historian. History obtained from or confirmed by: EMS External Record Review External record reviewed: Inpatient record, Office record, Outpatient record, Prior outpatient labs, Prior outpatient radiology, Primary care record and Outside ED record Tests considered The following testing was considered but not selected: considered chest x-ray however lungs clear to auscultation bilaterally. Prescription Management I considered prescription management with: Antibiotic Critical Care Time Critical Care Time Critical Care Time: Yes Total Critical Care Time: 35 Attestation: I ATTEST TO THIS TIME SPENT TAKING CARE OF THE PATIENT, OBTAINING HISTORY, PHYSICAL, REVIEWING LABS, IMAGING, SPEAKING TO MY ATTENDING Discharge Plan Discharge Clinical Impression: Weakness, Urinary tract infection, Rhabdomyolysis Patient Disposition: Admitted As Inpatient
[2023-06-01 09:06] LABS: Glucose, Whole Blood 87 mg/dL (60-115)
[2023-06-01 09:19] LABS: MANUAL DIFF FLAG NO
[2023-06-01 09:21] LABS: Basophils Percent Auto 0.3 % (0-2); Eosinophils Percent Auto 0.2 % (0-4); Hematocrit 27.7 % (42.0-52.0); Hemoglobin 8.9 g/dl (14.0-18.0); Imm Gran Abs Auto 0.07 X10*3/uL (0.00-0.03); Imm Gran Pct Auto 0.6 % (0.0-0.4); Lymphocytes Absolute Auto 1.5 X10*3/uL (1.2-4.9); Lymphocytes Percent Auto 13.4 % (20-40); Mean Corpuscular HGB Conc 32.1 g/dl (31.0-36.0); Mean Corpuscular Hemoglobin 28.8 pg (27.0-33.0); Mean Corpuscular Volume 89.6 fL (80.0-98.0); Mean Platelet Volume 10.9 fL (9.4-12.4); Monocytes Absolute Auto 1.2 X10*3/uL (0.1-1.2); Monocytes Percent Auto 10.9 % (2-11); Neutrophils Absolute Auto 8.1 x10*3/uL (2.0-8.3); Neutrophils Percent Auto 74.6 % (45-73); Platelet Count 198 X10*3/uL (160-400); Red Blood Count 3.09 X10*6/uL (4.60-5.80); Red Cell Distribution Width 15.6 % (11.0-16.0); White Blood Count 10.8 X10*3/uL (4.8-10.8)
[2023-06-01 09:29] LABS: Appearance Urine Cloudy; Color Urine Yellow; Glucose Urine UA Negative (Negative); Leukocyte Esterase Urine Large (3+) (Negative); Nitrite Urine Positive (Negative); Specific Gravity - Urine 1.015 (1.005-1.025); UMIC TRIGGER UACC YES; Urine Blood Moderate (2+) (Negative); Urine Ketones Negative (Negative); Urine Protein Trace mg/dL (Neg-Trace)
[2023-06-01 09:32] LABS: Bacteria Urine 4+ (None Seen); Hyaline Casts Urine 0-2 /LPF (0-2); Squamous Epithelial Cell Urine 0-2 /HPF (0-2); UACC Culture Trigger YES; WBC Urine >50 /HPF (0-5)
[2023-06-01 09:38] LABS: Alanine Aminotransferase 7 U/L (0-40); Albumin Level 3.7 g/dL (3.5-5.0); Alkaline Phosphatase 62 U/L (39-117); Anion Gap 13 (12-20); Aspartate Amino Transferase 27 U/L (5-37); Bilirubin Total 0.6 mg/dL (0.0-1.0); Blood Urea Nitrogen 25 mg/dL (9-16); Calcium 9.7 mg/dL (8.4-10.2); Carbon Dioxide 26 mmol/L (22-29); Chloride 102 mmol/L (96-108); Creatinine Clr Calc Pharmacy 39.3; Estimated Glomerular Filt Rate 56; Glucose Random 98 mg/dL (60-115); Magnesium 2.2 mg/dL (1.6-2.6); Potassium 4.2 mmol/L (3.3-5.1); Sodium 137 mmol/L (135-145); Total Protein 7.1 g/dL (6.5-8.0)
[2023-06-01 09:39] LABS: COVID-19 Test Negative (Negative); IDNOW Serial# 08D9AD1C
[2023-06-01 10:11] LABS: OBS Int Ctl Valid YES; OBS1 NEGATIVE (NEGATIVE)
[2023-06-01 10:19] LABS: Lactic Acid 0.6 mmol/L (0.5-2.0)
[2023-06-01] MEDS: 0.9 % Sodium Chloride 1,000 ML 999 ML IV (10:25)
[2023-06-01] MEDS: cefTRIAXone sodium 1 GM in 0.9 % Sodium Chloride 50 ML IV (10:29)
[2023-06-01] MEDS: Enoxaparin Sodium 40 MG/0.4 ML SYRINGE SUBCUT (10:50)
--- NOTE | 2023-06-01 11:10 | PM.IMHP ---
History of Present Illness Date of Service: 06/01/23 Chief Complaint: weakness This is an 87 year old male with a PMH of NSTEMI, COVID, HLD, HTN, TIA and strangulated inguinal hernia s/p bowel resection who presented to the ED this morning at the urging of his and her caregiver. The patient appears to be confused and/or minimizing his symptoms. He states he feels fine and denies any urinary symptoms. Further history is obtained from the patient's , who is also his HCP. She states that over the last several days, [place] has been complaining of pain ( down there - referring to urinary pain). He ambulates slowly to begin with, but has noticed a change in his activyt the last several days. There are reports of subjective fevers and decreased appetite. No chest pain, sob, cough. No diarrhea, n/v. No bleeding, GI or otherwise. No reports of falls. She reports at baseline, the patient is AAOx3 Work up in the ED revealed UA+ for UTI, rhabdo with CPK around 1k and microcytic anemia (slight drop from baseline). He has been given IVF and IV antibiotics. Will be admitted for further management. Review of Systems Review of Systems: Negative except HPI/interval history. [facility] Medical History Abnormal CT scan Inguinal hernia with strangulation TIA (transient ischemic attack) Hypercholesterolemia Hypertension Surgical History History of right inguinal hernia repair Social History Household Members: Spouse Housing: Unknown / Unable to assess Do you presently have visiting nurse or other home services: No Alcohol intake: former Patient Tobacco Use Status: Never used Tobacco Advance Directives: Yes Advance Directives on File: Yes Advance Directives Date on File: 09/17/22 service: Yes Current occupational status: retired Meds Allergies Allergy/AdvReac Type Severity Reaction Status Date / Time No Known Allergies Allergy Unverified 06/08/21 11:28 [No Known Allergies*] Active Medications: Current Medications Acetaminophen (Acetaminophen 325 Mg Tablet) 650 mg PO Q6H PRN PRN Reason: Pain, Mild (Pain Scale 1-3) Enoxaparin Sodium (Enoxaparin Sodium 40 Mg/0.4 Ml Syringe) 40 mg SUBCUT Q24H [facility] Last Admin: 06/01/23 10:50 Dose: 40 mg Ceftriaxone Sodium 1 gm/ (Sodium Chloride) 50 mls @ 100 mls/hr IV Q24H [facility] Sodium Chloride (0.9 % Sodium Chloride Flush 3 Ml Syringe) 3 ml IVFLUSH QSHIFT [facility] Home Medications Medication Instructions Recorded Confirmed Last Taken Type calcium 250 mg tablet 250 mg PO DAILY 09/12/22 09/12/22 Unknown History vitamin E 09/12/22 Unknown History Physical Exam Vital Signs and Narrative: Vital Signs: Last Vital Signs Temp 97.6 F 06/01/23 09:00 Pulse 69 06/01/23 09:00 Resp 16 06/01/23 09:00 BP 152/70 H 06/01/23 09:00 Pulse Ox 95 06/01/23 09:00 O2 Del Method Room Air 06/01/23 09:00 BMI result Body Mass Index 21.5 Const: Other: Constitutional - Frail appearing, oriented to person place and time, but disoriented to situration Eyes - PERRLA, EOMI Cardiovascular - S1S2, RRR, No edema Respiratory - Normal lung expansion, Normal respiratory effort, No respiratory distress, CTA bilaterally Gastrointestinal - NT / ND; +BS; No rebound or guarding - No CVA tenderness Extremities - no calf tenderness bilaterally Musculoskeletal - Normal inspection, normal ROM Skin - Warm/Dry Neurological - Moving all 4 limbs, no facial asymmetry, non-focal exam Psychological - Appropriate affect Results Labs 06/01/23 09:12 06/01/23 09:12 Labs: Laboratory Results - last 24 hr 06/01/23 06/01/23 06/01/23 09:02 09:12 09:20 MCV 89.6 MCH 28.8 MCHC 32.1 RDW 15.6 Plt Count 198 D MPV 10.9 Immature Gran % (Auto) 0.6 H Neut % (Auto) 74.6 H Lymph % (Auto) 13.4 L [place] % (Auto) 10.9 Eos % (Auto) 0.2 Baso % (Auto) 0.3 Lymph # (Auto) 1.5 [place] # (Auto) 1.2 Eos # (Auto) 0.0 Baso # (Auto) 0.0 Abs Immat Gran (auto) 0.07 H Absolute Neuts (auto) 8.1 Absolute Nucleated RBC 0.000 Nucleated RBC % (auto) 0.0 Anion Gap 13 Estim Creat Clear Calc 39.3 Estimated GFR 56 POC Glucose 87 Random Glucose 98 Lactic Acid Calcium 9.7 D Magnesium 2.2 Total Bilirubin 0.6 AST 27 ALT 7 Alkaline Phosphatase 62 Total Creatine Kinase 1099 H Total Protein 7.1 Albumin 3.7 Urine Color Yellow Urine Appearance Cloudy Urine pH 7.0 Ur Specific [place] 1.015 Urine Protein Trace Urine Glucose (UA) Negative Urine Ketones Negative Urine Blood Moderate (2+) H Urine Nitrite Positive H Ur Leukocyte Esterase Large (3+) H Urine RBC 6-10 H Urine WBC >50 H Ur Squamous Epith Cells 0-2 Urine Bacteria 4+ Hyaline Casts 0-2 Stool Occult Blood COVID-19 (REZA) Negative COVID-19 Clin Com See Note 06/01/23 10:01 MCV MCH MCHC RDW Plt Count MPV Immature Gran % (Auto) Neut % (Auto) Lymph % (Auto) [place] % (Auto) Eos % (Auto) Baso % (Auto) Lymph # (Auto) [place] # (Auto) Eos # (Auto) Baso # (Auto) Abs Immat Gran (auto) Absolute Neuts (auto) Absolute Nucleated RBC Nucleated RBC % (auto) Anion Gap Estim Creat Clear Calc Estimated GFR POC Glucose Random Glucose Lactic Acid 0.6 Calcium Magnesium Total Bilirubin AST ALT Alkaline Phosphatase Total Creatine Kinase Total Protein Albumin Urine Color Urine Appearance Urine pH Ur Specific [place] Urine Protein Urine Glucose (UA) Urine Ketones Urine Blood Urine Nitrite Ur Leukocyte Esterase Urine RBC Urine WBC Ur Squamous Epith Cells Urine Bacteria Hyaline Casts Stool Occult Blood NEGATIVE COVID-19 (REZA) COVID-19 Clin Com Assessment and Plan (1) Urinary tract infection: Status: Acute Plan This is an 87 year old male with a PMH of NSTEMI, COVID, HLD, HTN, TIA and strangulated inguinal hernia s/p bowel resection who presented to the ED this morning at the urging of his and her caregiver. His work up in the ED is consistent with metabolic encephalopathy due to UTI and rhadbo. 1. Acute toxic/metabolic encephalopathy due to complicated UTI continue rocephin follow cultures suspect his confusion should improve as his infection is treated 2. Rhdomyolysis no reports of fall history IVF and recheck tomorrow 3. HTN continue baseline meds 4. HLD baseline meds 5. Normocytic anemia around baseline, monitor FOBT negative Full Code DVT pptx, Lovenox Given patients confusion and concurrent UTI along with rhado, which will require IV abx, IVF and frequent monitoring, I anticipate he will likely need at least 48 hours of treatment in the hospital. Hence, his admission is expected to be at least 2 midnights and therefore, will be admitted as inpatient. HCP: Sherine Teri () Quality Stroke Does the patient have a stroke diagnosis?: No VTE Prior VTE?: No VTE Risk Level:: Medical - moderate - high VTE Device Contraindication: Treatment Not Indicated VTE Drug Contraindication: N/A - Med Ordered
[2023-06-01] MEDS: Lactated Ringers 1,000 ML 100 ML IVCONT ×2 (11:32→19:59)
--- NOTE | 2023-06-01 11:53 | PHA.MEDREC ---
Pharmacy Consult ? Medication Reconciliation Pharmacy has completed the medication reconciliation. called patients and she does not know what he takes. [facility] and were [facility] from 2009. I called [facility] and they only have history of clopidogrel for a 90 DS from November and no history of any other fills after that.
[2023-06-01 12:17] VITALS: BP 139/70; PULSE 68; RESP 18; TEMP 36.7; O2SAT 97
[2023-06-01 14:34] VITALS: BMI 21.5
[2023-06-01 14:39] VITALS: BP 149/68; PULSE 67; RESP 12; TEMP 36.2; O2SAT 98
[2023-06-01 15:08] VITALS: BP 146/70; PULSE 68; RESP 17; TEMP 36.2; O2SAT 96
[2023-06-01 19:32] VITALS: BP 150/56; PULSE 74; RESP 17; TEMP 36.6; O2SAT 99
[2023-06-01] MEDS: 0.9 % Sodium Chloride Flush 3 ML SYRINGE IVFLUSH (20:01)
--- NOTE | 2023-06-02 02:11 | HO.SKINPHOTO ---
Location: buttock Category: Stage: Length: Width: Depth: cm Location: Category: Stage: Length: Width: Depth: cm Location: Category: Stage: Length: Width: Depth: cm Location: Category: Stage: Length: Width: Depth: cm Location: Category: Stage: Length: Width: Depth: cm Location: Category: Stage: Length: Width: Depth: cm
[2023-06-02 04:00] VITALS: BP 170/74; PULSE 71; RESP 16; TEMP 36.4; O2SAT 100
[2023-06-02] MEDS: Lactated Ringers 1,000 ML 100 ML IVCONT ×3 (04:31→23:48)
[2023-06-02 06:53] LABS: Anion Gap 14 (12-20); Blood Urea Nitrogen 19 mg/dL (9-16); Calcium 8.7 mg/dL (8.4-10.2); Carbon Dioxide 24 mmol/L (22-29); Chloride 102 mmol/L (96-108); Creatinine Clr Calc Pharmacy 51.6; Estimated Glomerular Filt Rate > 60; Glucose Random 82 mg/dL (60-115); Potassium 3.7 mmol/L (3.3-5.1); Sodium 136 mmol/L (135-145)
[2023-06-02 06:54] LABS: Cholesterol 154 mg/dL (<200); HDL Cholesterol 58 mg/dL (>40); LDL Cholesterol Calculated 89 mg/dL (<100); Triglycerides 39 mg/dL (<150)
[2023-06-02 07:27] VITALS: BP 178/72; PULSE 70; RESP 14; TEMP 36.4; O2SAT 98
--- NOTE | 2023-06-02 08:16 | HO.PM.IMPN ---
Subjective Subjective Date of Service: 06/02/23 Interval History: no complaints, poor insight Physical Exam Vital Signs: Vital Signs: Last Vital Signs Temp 97.6 F 06/02/23 07:27 Pulse 70 06/02/23 07:27 Resp 14 06/02/23 07:27 BP 178/72 H 06/02/23 07:27 Pulse Ox 98 06/02/23 07:27 O2 Del Method Room Air 06/02/23 07:27 BMI result Body Mass Index 21.5 General: Alert, confused, no acute distress Resp: CTA bilateral, no accessory muscles used CVS: S1,S2,RRR GI: soft, non tender, non distended Neuro: motor grossly intact, alert Objective Data Active Medications Acetaminophen (Acetaminophen 325 Mg Tablet) 650 mg PO Q6H PRN PRN Reason: Pain, Mild (Pain Scale 1-3) Amlodipine Besylate (Amlodipine Besylate 5 Mg Tablet) 5 mg PO DAILY FERNANDO; Protocol Aspirin (Aspirin Enteric Coated 81 Mg Tablet.Dr) 81 mg PO DAILY [facility] Atorvastatin Calcium (Atorvastatin Calcium 40 Mg Tablet) 40 mg PO BEDTIME [facility] Enoxaparin Sodium (Enoxaparin Sodium 40 Mg/0.4 Ml Syringe) 40 mg SUBCUT Q24H [facility] Last Admin: 06/01/23 10:50 Dose: 40 mg Documented By: KIRA Ceftriaxone Sodium 1 gm/ (Sodium Chloride) 50 mls @ 100 mls/hr IV Q24H [facility] Lactated Ringer's (Lr) 1,000 mls @ 100 mls/hr IVCONT .Q10H [facility] Last Admin: 06/02/23 04:31 Dose: 100 mls/hr Documented By: SKYE Sodium Chloride (0.9 % Sodium Chloride Flush 3 Ml Syringe) 3 ml IVFLUSH QSHIFT [facility] Last Admin: 06/01/23 20:01 Dose: 3 ml Documented By: SKYE Labs 06/01/23 09:12 06/02/23 05:53 Labs: Laboratory Results - last 24 hr 06/01/23 06/01/23 06/01/23 09:02 09:12 09:20 MCV 89.6 MCH 28.8 MCHC 32.1 RDW 15.6 Plt Count 198 D MPV 10.9 Immature Gran % (Auto) 0.6 H Neut % (Auto) 74.6 H Lymph % (Auto) 13.4 L [place] % (Auto) 10.9 Eos % (Auto) 0.2 Baso % (Auto) 0.3 Lymph # (Auto) 1.5 [place] # (Auto) 1.2 Eos # (Auto) 0.0 Baso # (Auto) 0.0 Abs Immat Gran (auto) 0.07 H Absolute Neuts (auto) 8.1 Absolute Nucleated RBC 0.000 Nucleated RBC % (auto) 0.0 Hold Purple Top Anion Gap 13 Estim Creat Clear Calc 39.3 Estimated GFR 56 POC Glucose 87 Random Glucose 98 Lactic Acid Calcium 9.7 D Magnesium 2.2 Total Bilirubin 0.6 AST 27 ALT 7 Alkaline Phosphatase 62 Total Creatine Kinase 1099 H Total Protein 7.1 Albumin 3.7 Triglycerides Cholesterol LDL Cholesterol, Calc HDL Cholesterol Urine Color Yellow Urine Appearance Cloudy Urine pH 7.0 Ur Specific [place] 1.015 Urine Protein Trace Urine Glucose (UA) Negative Urine Ketones Negative Urine Blood Moderate (2+) H Urine Nitrite Positive H Ur Leukocyte Esterase Large (3+) H Urine RBC 6-10 H Urine WBC >50 H Ur Squamous Epith Cells 0-2 Urine Bacteria 4+ Hyaline Casts 0-2 Stool Occult Blood COVID-19 (REZA) Negative COVID-19 Clin Com See Note 06/01/23 06/02/23 10:01 05:53 MCV MCH MCHC RDW Plt Count MPV Immature Gran % (Auto) Neut % (Auto) Lymph % (Auto) [place] % (Auto) Eos % (Auto) Baso % (Auto) Lymph # (Auto) [place] # (Auto) Eos # (Auto) Baso # (Auto) Abs Immat Gran (auto) Absolute Neuts (auto) Absolute Nucleated RBC Nucleated RBC % (auto) Hold Purple Top SEE NOTE Anion Gap 14 Estim Creat Clear Calc 51.6 Estimated GFR > 60 POC Glucose Random Glucose 82 Lactic Acid 0.6 Calcium 8.7 D Magnesium Total Bilirubin AST ALT Alkaline Phosphatase Total Creatine Kinase Total Protein Albumin Triglycerides 39 Cholesterol 154 LDL Cholesterol, Calc 89 HDL Cholesterol 58 Urine Color Urine Appearance Urine pH Ur Specific [place] Urine Protein Urine Glucose (UA) Urine Ketones Urine Blood Urine Nitrite Ur Leukocyte Esterase Urine RBC Urine WBC Ur Squamous Epith Cells Urine Bacteria Hyaline Casts Stool Occult Blood NEGATIVE COVID-19 (REZA) COVID-19 Clin Com Assessment and Plan (1) Rhabdomyolysis: Status: Acute Plan 87M PMH HLD, HTN, TIA, unspecified dementia, and strangulated inguinal hernia s/p bowel resection presented at the urging of his and her caregiver for weakness, confusion. Acute toxic/metabolic encephalopathy due to complicated UTI continue rocephin follow cultures Rhdomyolysis ivf, monitor cpk weakness pt eval HTN no longer on meds, will start amlodipine 5mg daily HLD restart statin history of tia restart asa, statin Normocytic anemia around baseline, monitor FOBT negative Full Code DVT pptx, Lovenox reason for continued hospitalization:ivf for rhabdo, awaiting cultures Quality Stroke Does the patient have a stroke diagnosis?: No VTE Prior VTE?: No VTE Risk Level:: Medical - moderate - high VTE Device Contraindication: Treatment Not Indicated VTE Drug Contraindication: N/A - Med Ordered
[2023-06-02] MEDS: 0.9 % Sodium Chloride Flush 3 ML SYRINGE IVFLUSH (09:05)
[2023-06-02] MEDS: Aspirin Enteric Coated 81 MG TABLET.DR PO (09:05)
[2023-06-02] MEDS: amLODIPine Besylate 5 MG TABLET PO (09:05)
[2023-06-02] MEDS: Enoxaparin Sodium 40 MG/0.4 ML SYRINGE SUBCUT (09:05)
[2023-06-02] MEDS: cefTRIAXone sodium 1 GM in 0.9 % Sodium Chloride 50 ML IV (09:06)
[2023-06-02 09:12] VITALS: BP 178/72; PULSE 70; O2SAT 98
--- NOTE | 2023-06-02 14:31 | MHC.CM.PN ---
IMM DELIVERED. PT RESIDES WITH SPOUSE. 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 PT STATES HE HAS SOME SERVICES FROM THE [facility] BUT COULD NOT SPECIFY. USES A 3 WHEELED WALKER FOR MOBILITY,CANE AT TIMES. + HCP ON FILE. PT GIVES PERMISSION TO SPEAK WITH .. PCP MD AT [facility] IN [place]. DP: P.T. REC STR, PT HAS NO PREFERENCE JUST NOT THE PLACE IN [place] AND DEFERS THE CHOICE BE LEFT TO HIS . CM SPOKE WITH MELANIE WHO CHOOSES [facility]. [facility] OFFERED A BED AND WILL FOLLOW. PT WILL DC VIA BLS TRANSPORT. CM WILL CONTINUE TO FOLLOW FOR ANY CHANGE IN DC NEEDS/PLAN
[2023-06-02 15:18] VITALS: BP 137/67; PULSE 78; RESP 17; TEMP 36.3; O2SAT 99
--- NOTE | 2023-06-02 17:33 | HO.WOUND ---
Wound Consult: Initial 87yr old male admitted to [facility] on?06/01/23 10:30 - See progress notes and H&P for detailed history. Wound consult placed for Sacrum. pt agreeable to assessment - pt reports he is aware of the wound to his buttock area. He reports mild tenderness. Left sacrum Etiology: Stage 2 Pressure injury POA Measurements: 1cm x 0.2cm x 0.1cm Wound Bed: red moist partial thickness tissue loss - evidence of MASD and friction component Drainage / Odor: none noted at the time of my assessment Edges: ? irregular and attached Kat wound: MASD (Moisture Associated Skin Damage - Incontinence Associated Dermatitis)? No Induration, Fluctuance or Warmth noted Pain: Mild tenderness reported Goals of Treatment: ? Triad and foam dressing to aid in autolytic moist wound healing and protect from friction Recommendations: 1. Turn and Reposition every 2 hours and as needed for patient comfort. Use of pillow to support off loading positions. 2. Off Load all bony prominences with use of pillows and heel boots if needed.? Apply Preventative foams where needed. ? 3. Monitor for incontinence and moisture control, use barrier creams when needed for prevention and treatment. 4. Provide adequate and supplemental nutrition. 5. Order or Continue low air loss mattress. 6. Sacrum - Off Load Pressure - Cleanse with PH balance spray or wipes, pat dry. ?Apply thin layer of Triad to wound bed - only pat and dab no scrub and rub when soiling occurs. Reapply thin layer PRN after each episode of incontinence. May cover with sacral foam dressing to aid in protection from friction and pressure. Change Daily. Re-consult wound care Nurse for wound deterioration or wound changes.
[2023-06-02 19:36] VITALS: BP 143/55; PULSE 77; RESP 17; TEMP 36.8; O2SAT 97
[2023-06-02] MEDS: Atorvastatin Calcium 40 MG TABLET PO (19:43)
[2023-06-03 04:00] VITALS: BP 164/72; PULSE 75; RESP 16; TEMP 37; O2SAT 96
[2023-06-03 04:53] LABS: Hematocrit 25.8 % (42.0-52.0); Hemoglobin 8.3 g/dl (14.0-18.0); Mean Corpuscular HGB Conc 32.2 g/dl (31.0-36.0); Mean Corpuscular Hemoglobin 28.1 pg (27.0-33.0); Mean Corpuscular Volume 87.5 fL (80.0-98.0); Mean Platelet Volume 11.2 fL (9.4-12.4); Platelet Count 187 X10*3/uL (160-400); Red Blood Count 2.95 X10*6/uL (4.60-5.80); Red Cell Distribution Width 15.3 % (11.0-16.0); White Blood Count 7.8 X10*3/uL (4.8-10.8)
[2023-06-03 05:12] LABS: Anion Gap 12 (12-20); Blood Urea Nitrogen 18 mg/dL (9-16); Calcium 8.7 mg/dL (8.4-10.2); Carbon Dioxide 24 mmol/L (22-29); Chloride 102 mmol/L (96-108); Creatinine Clr Calc Pharmacy 42.8; Estimated Glomerular Filt Rate > 60; Glucose Fasting 101 mg/dL (60-99); Potassium 3.6 mmol/L (3.3-5.1); Sodium 134 mmol/L (135-145)
[2023-06-03 07:37] VITALS: BP 142/78; PULSE 80; RESP 12; TEMP 36.7; O2SAT 97
[2023-06-03 08:06] VITALS: BP 142/78; PULSE 80; O2SAT 97
--- NOTE | 2023-06-03 08:22 | P.DS_ITS ---
DS: Providers Provider Date of Service: 06/03/23 Date of admission: 06/01/23 10:30 Primary care physician: Unknown Physician Consults: 06/02/23 02:20 Consult to Wound Care Routine Reason for consultation: skin integrity - see pic DS: Diagnosis Discharge Diagnosis (1) Rhabdomyolysis: Status: Acute DS: Summary Hospital Course Hospital Course: from initial hpi: 87 year old male with a PMH of NSTEMI, COVID, HLD, HTN, TIA and strangulated inguinal hernia s/p bowel resection who presented to the ED this morning at the urging of his and her caregiver. The patient appears to be confused and/or minimizing his symptoms. He states he feels fine and denies any urinary symptoms. Further history is obtained from the patient's , who is also his HCP. She states that over the last several days, [place] has been complaining of pain ( down there - referring to urinary pain). He ambulates slowly to begin with, but has noticed a change in his activyt the last several days. There are reports of subjective fevers and decreased appetite. No chest pain, sob, cough. No diarrhea, n/v. No bleeding, GI or otherwise. No reports of falls. She reports at baseline, the patient is AAOx3 Work up in the ED revealed UA+ for UTI, rhabdo with CPK around 1k and microcytic anemia (slight drop from baseline). He has been given IVF and IV antibiotics. Will be admitted for further management. hospital course: Patient was admitted for acute toxic metabolic encephalopathy due to complicated urinary tract infection. Urine culture grew E coli that was sensitive to ceftriaxone. Patient's encephalopathy improved, will be discharged on 5 more days of cefuroxime. For rhabdomyolysis received IV fluids and CPK improved. For weakness was seen by physical therapy recommended short-term rehab, though patient did improve somewhat and would prefer pt at home. For hypertension patient appeared to be no longer taking medications at home he was started on amlodipine 5 mg daily. For history of TIA he was also no longer on meds, he was restarted on aspirin and statin. For his normocytic anemia he appeared to be around baseline and FOBT was negative. Patient is feeling better will be discharged to intermediate facility for short-term rehab. He is expected require less than 30 days. Time Attestation Discharge coordination time: Greater than 30 minutes Quality: Safe Use of Opioids Does Pt have an Active Cancer Diagnosis on the Problem List?: No Quality: Stroke Does the patient have a stroke diagnosis?: No Physical Exam Vital Signs: Vital Signs: Last Vital Signs Temp 98.1 F 06/03/23 07:37 Pulse 80 06/03/23 08:06 Resp 12 06/03/23 07:37 BP 142/78 H 06/03/23 08:06 Pulse Ox 97 06/03/23 08:06 O2 Del Method Room Air 06/03/23 07:37 BMI result Body Mass Index 21.5 General: Alert, confused, no acute distress Resp: CTA bilateral, no accessory muscles used CVS: S1,S2,RRR GI: soft, non tender, non distended Neuro: motor grossly intact, alert DS: Data Data Completed and Pending Labs on day of discharge: Laboratory Results - last 24 hr 06/03/23 04:39 WBC 7.8 RBC 2.95 L Hgb 8.3 L Hct 25.8 L MCV 87.5 MCH 28.1 MCHC 32.2 RDW 15.3 Plt Count 187 MPV 11.2 Absolute Nucleated RBC 0.000 Nucleated RBC % (auto) 0.0 Sodium 134 L Potassium 3.6 Chloride 102 Carbon Dioxide 24 Anion Gap 12 BUN 18 H Creatinine 1.12 Estim Creat Clear Calc 42.8 Estimated GFR > 60 Fasting Glucose 101 H Calcium 8.7 Preliminary micro results at discharge 06/01/23 10:26 Blood Culture - Preliminary Blood - Venous No growth after 24 hours. 06/01/23 10:01 Blood Culture - Preliminary Blood - Venous No growth after 24 hours. Discharge Plan Discharge Anticipated Discharge Date/Time: 06/03/23 08:20 Patient Disposition: Home Health Service Discharge Diagnosis: uti Referrals: Physician,Unknown J [Primary Care Provider] - 1 Week Discharge Medications: New atorvastatin 40 mg Tablet 40 mg PO BEDTIME Qty: 0 0RF amlodipine 5 mg Tablet 5 mg PO DAILY Qty: 0 0RF Protocol: Hold for SBP< HOLD for SBP < : 90 aspirin 81 mg Tablet,Delayed Release (Dr/Ec) 81 mg PO DAILY Qty: 0 0RF cefuroxime axetil 500 mg tablet 500 mg PO BID Qty: 10 0RF Discharge Orders: Discharge Order (Routine); Ordered 06/03/23 Ordered By: aGvin Valdez Diet: Advance to usual diet Activity on Discharge: As tolerated Stand Alone Forms: Patient Portal Discharge page Care Plan Goals: recovery Health Concerns: uti Plan of Treatment: 5 more days ceftin, restart asa, statin, amlodipine, str Assessment: see above
[2023-06-03] MEDS: 0.9 % Sodium Chloride Flush 3 ML SYRINGE IVFLUSH (09:28)
[2023-06-03] MEDS: Enoxaparin Sodium 40 MG/0.4 ML SYRINGE SUBCUT (09:28)
[2023-06-03] MEDS: amLODIPine Besylate 5 MG TABLET PO (09:29)
[2023-06-03] MEDS: Aspirin Enteric Coated 81 MG TABLET.DR PO (09:29)
[2023-06-03] MEDS: cefTRIAXone sodium 1 GM in 0.9 % Sodium Chloride 50 ML IV (09:29)
--- NOTE | 2023-06-03 09:52 | MHC.CM.PN ---
PATIENT IS REFUSING TO GO TO REHAB. HE STATES I HAVE EXERCISE EQUIPMENT AT HOME PER CONVERSATION WITH PATIENT'S , MELANIE [phone], SHE IS UNABLE TO UNLOCK THE DOOR TO THE HOME AND HAS TO CALL HER [place] OT LET PATIENT IN THE HOME. IT WAS EXPLAINED TO BOTH PATIENT AND THAT HOME IS NOT A SAFE DC PLAN, BUT BOTH PARTIES NOW REFUSE STR. ACCORDING TO PATIENT, HE WILL GO DOWN CELLAR TO UNLOCK THE DOOR. HE REFUSES ANY VNA SERVICES. AWARE.
--- NOTE | 2023-06-03 09:59 | W.MHC.F2F ---
Service Date Service Date: 06/03/23 Encounter Date of encounter: 06/03/23 Reasons for Services Signs and symptoms assessed: weakness Reason for half-way: medication management, medication treatment and teach disease management Reason for physical therapy: home safety and mobility and therapeutic exercises Homebound: Leaving the home is medically contraindicated at this time without the asist of a device and/or another person due th the listed conditions above and below. Reason homebound: unsteady gait / fall risk Certification: Based on the above findings, I certify that this patient is confined to the home and needs intermittent half-way care, physical therapy and/or speech therapy, or continues to need occupational therapy. The patient is under my care, and I have initiated the establishment of the plan of care. The patient will be followed by a physician who will periodically review the plan of care. Time Spent With Patient Time: Total time managing care of this patient today ____ minutes.
--- NOTE | 2023-06-03 10:14 | MHC.CM.PN ---
PATIENT AWARE THAT WILL PLACE A REFERRAL TO [facility] FOR HOME SAFETY AND SERVICES. HE REPEATS THAT HE HAS EXERCISE EQUIPMENT IN THE HOME. HE DOES NOT SEEM ABLE TO UNDERSTAND THIS OUTSOLE SKIVER'S CONCERNS ABOUT A SAFE DC.
--- NOTE | 2023-06-03 11:39 | MHC.CM.PN ---
NINI RAMIREZ IS OFFERING SERVICES. MD HANSEN
== END 2023-06-03 15:26 | disposition home health service (06) | DRG 689 ==
LOC: HO.ED 09:45 → HO.EDOVER 10:51 → HO.IMC 12:32 → HO.S3 12:34
PROVIDERS: Physician Assistant; Admitting Provider Family Medicine; Emergency Provider Emergency Medicine Emergency Medical Services; Visit Provider Internal Medicine
DX: N39.0 Urinary tract infection, site not specified (principal); G92.8 Other toxic encephalopathy; M62.82 Rhabdomyolysis; I10 Essential (primary) hypertension; B96.20 Unspecified Escherichia coli [E. coli] as the cause of diseases classified elsewhere; D50.9 Iron deficiency anemia, unspecified; E78.5 Hyperlipidemia, unspecified; Z86.73 Personal history of transient ischemic attack (TIA), and cerebral infarction without residual deficits; Z20.822 Contact with and (suspected) exposure to COVID-19; Z79.82 Long term (current) use of aspirin; Z79.899 Other long term (current) drug therapy
CPT/HCPCS: 36415; 80048; 80053; 80061; 81001; 82272; 82550; 82947; 83605; 83735; 85025; 85027; 87040; 87086; 87088; 87186; 87635; 97116; 97162; 99285; J0696; J1650; J7120

== ENCOUNTER → 2023-06-01 10:30 | Outpatient (BNV) | payer OTHER, SELFPAY | PROVIDERS: Admitting Provider Family Medicine; Emergency Provider Emergency Medicine Emergency Medical Services; Visit Provider Family Medicine | DX: M62.82 Rhabdomyolysis (principal) | CPT/HCPCS: 99223; 99232; 99239; G0180 ==

== ENCOUNTER 2023-08-18 08:48 | Inpatient (IN) | payer OTHER, SELFPAY ==
[2023-08-18] VITALS (8 sets, daily range): BP systolic 126–168; BP diastolic 60–84; PULSE 60–91; RESP 14–17; TEMP 36.5–38.1; O2SAT 92–98; BMI 20.5
--- NOTE | ~2023-08-18 | CT_ITS ---
EXAMINATION: CT HEAD WITHOUT CONTRAST CLINICAL INFORMATION: Fall. Head strike COMPARISON: 09/12/2022 TECHNIQUE: Contiguous axial imaging was performed from the skull base to vertex without intravenous administration of contrast. This CT examination was performed using dose optimization techniques as appropriate, variously including the following: *Automated exposure control *Adjustment of mA and/or kV according to patient size (this includes techniques or standardized protocols for targeted exams where dose is matched to indication/reason for exam; i.e. extremities or head) *Use of iterative reconstruction technique DLP: 257 mGy-cm FINDINGS: There is prominence to the sulci and ventricles consistent with atrophy and age-related change. There is an old right deep white matter lacune. No change. No evidence for hemorrhage, mass, or extra-axial collection. The calvarium intact. CT/CT head/brain wo IV con IMPRESSION: Extensive chronic change. No acute findings.
--- NOTE | ~2023-08-18 | CT_ITS ---
EXAMINATION: CT ABDOMEN AND PELVIS WITHOUT CONTRAST CLINICAL INFORMATION: Urinary tract infection. Confusion. COMPARISON: 07/09/2020 TECHNIQUE: Multidetector volumetric imaging was performed from the superior aspect of the liver through the pubic symphysis. Sagittal and coronal reformatted images were obtained on the technologist's workstation. This CT examination was performed using dose optimization techniques as appropriate, variously including the following: *Automated exposure control *Adjustment of mA and/or kV according to patient size (this includes techniques or standardized protocols for targeted exams where dose is matched to indication/reason for exam; i.e. extremities or head) *Use of iterative reconstruction technique DLP: 394 mGy-cm FINDINGS: LUNG BASES: No pleural or pericardial effusion. Eventration of left hemidiaphragm. LIVER, GALLBLADDER, AND BILIARY TREE: The noncontrast liver is normal in size and contour. No biliary ductal dilatation is present. The gallbladder is unremarkable with no evidence of radiopaque gallstones, gallbladder wall thickening, or obvious pericholecystic inflammatory changes. PANCREAS: No ductal dilatation. SPLEEN: Not enlarged. ADRENAL GLANDS: No adrenal mass. KIDNEYS AND URETERS: The kidneys are symmetric in size. There are multiple bilateral renal hypodensities that are incompletely characterized. No hydronephrosis. No obstructing renal calculus. Nonspecific perinephric stranding. BLADDER: No bladder calculus. No bladder wall thickening. GASTROINTESTINAL TRACT: No small bowel obstruction. Surgical anastomosis in the small bowel. 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 Marked fecal retention in the colon. ABDOMINAL WALL: Left inguinal hernia containing nonobstructed large bowel and small fluid. LYMPH NODES: There is retractile soft tissue mass with dystrophic calcification within the mesentery difficult to characterize without intravenous contrast but measuring approximately 7.1 x 2.6 x 6.4 cm. There has been increase in size relative to 07/09/2020. VASCULAR: No abdominal aortic aneurysm. Moderate atherosclerotic vascular calcification. PELVIC VISCERA: Enlarged prostate gland. Small free fluid in pelvis. OSSEOUS STRUCTURES: No destructive bone lesion. CT/CT abdomen pelvis wo IV con IMPRESSION: Progression of retractile soft tissue mass with dystrophic calcification within the mesentery measuring 7.1 x 2.6 x 6.4 cm relative to 07/09/2020. Evaluation is limited by lack of intravenous contrast. Left inguinal hernia containing colon and small fluid without evidence of acute complication.
--- NOTE | ~2023-08-18 | XR_ITS ---
EXAMINATION: XR CHEST CLINICAL INFORMATION: Fall COMPARISON: Portable chest 09/12/2022 TECHNIQUE: AP upright portable view of the chest was obtained. 9:35 AM FINDINGS: No significant abnormality is noted involving the heart, lungs, mediastinum or or soft tissues. Multiple healed right posterior rib fractures are again noted. XR/XR chest 1V IMPRESSION: No acute cardiopulmonary disease.
--- NOTE | ~2023-08-18 | CT_ITS ---
EXAMINATION: CT CERVICAL SPINE WITHOUT CONTRAST CLINICAL INFORMATION: Neck pain. Fall. COMPARISON: CT cervical spine dated 12/10/2021. TECHNIQUE: Noncontrast computed tomography of the cervical spine was performed. This CT examination was performed using dose optimization techniques as appropriate, variously including the following: *Automated exposure control *Adjustment of mA and/or kV according to patient size (this includes techniques or standardized protocols for targeted exams where dose is matched to indication/reason for exam; i.e. extremities or head) *Use of iterative reconstruction technique DLP: 257 mGy-cm FINDINGS: There is straightening of the cervical lordosis. There is 1.7 mm of anterolisthesis of C4 in relation to C5, unchanged from prior examination. There is trace retrolisthesis of C2 in relation to C3. There is trace retrolisthesis of C6 in relation to C7. There is minimal anterolisthesis of C7 in relation to T1. Vertebral body heights are maintained. The facet joints are anatomically aligned. There is significant facet arthropathy at multiple levels, unchanged from prior examination. There is multilevel degenerative disc disease, similar to prior study. There is significant degenerative disease at the C1-C2 articulations. The dens is intact. Prevertebral soft tissue is normal in appearance. There is no cervical spine fracture. There are multilevel disc osteophyte complexes and uncovertebral joint hypertrophy resulting in multilevel foraminal and central canal narrowing. Lung apices are clear. There are mastoid air cell effusions bilaterally. CT/CT cervical spine wo IV con IMPRESSION: No acute osseous cervical spine abnormality. Stable spondylosis. Fleischner guidelines were followed.
--- NOTE | 2023-08-18 09:05 | ED_ITS ---
HPI - General Adult General Chief complaint: General Medical Stated complaint: VNA STS AMS,?UTI PER EMS Time Seen by Provider: 08/18/23 09:03 Source: patient Mode of arrival: ambulatory Limitations: other (poor historian ) History of Present Illness HPI narrative: 88-year-old male hx of rhabdo, NSTEMI, anemia, TIA, HTN, coming from home presents for evaluation of weakness, fatigue, malaise over the past few weeks worsening. Patient came in w/ ems with concerns of fall this AM. Patient states he sliped out bed. No head strike or lOC. Lives at home w/ who cant care for him anymore. Denies chest pain, shortness of breath, cough, fevers, chills, headache, vision changes, dizziness, weakness. Related Data Previous Rx's Medication Instructions Recorded amlodipine 5 mg tablet 5 mg PO DAILY #0 tabs 06/03/23 aspirin 81 mg tablet,delayed 81 mg PO DAILY #0 tabs 06/03/23 release atorvastatin 40 mg tablet 40 mg PO BEDTIME #0 tabs 06/03/23 cefuroxime axetil 500 mg tablet 500 mg PO BID #10 tabs 06/04/23 Allergies Allergy/AdvReac Type Severity Reaction Status Date / Time No Known Allergies Allergy Unverified 06/08/21 11:28 [No Known Allergies*] Review of Systems 2 Review of Systems: Yes all other systems are reviewed and are negative PMFSH Past Medical History Attestation statement: The following information was validated with the patient. Source: old records reviewed and nursing notes reviewed Medical History Abnormal CT scan Inguinal hernia with strangulation TIA (transient ischemic attack) Hypercholesterolemia Hypertension Surgical History History of right inguinal hernia repair Social History Social History Household Members: Spouse Housing: Apartment Do you presently have visiting nurse or other home services: Yes Alcohol intake: former Patient Tobacco Use Status: Never used Tobacco Smoked in Last 30 Days: No Use of substances other than those prescribed or required for medical reasons: No Advance Directives: Yes Advance Directives on File: Yes Advance Directives Date on File: 09/17/22 service: Yes Current occupational status: retired Physical Exam ED Vital Signs: Vital Signs - 24 hr 08/18/23 09:04 08/18/23 10:57 Temperature 98.5 F 100.5 F H Pulse Rate 91 83 Respiratory Rate 17 16 Blood Pressure 168/78 H 152/74 H Pulse Oximetry 94 98 Oxygen Delivery Method Room Air Room Air BMI result Body Mass Index 20.5 vss Appearance: Alert.? Oriented X3.? No acute distress.? Head: Normocephalic, atraumatic, no step-offs or deformities Eyes: Pupils equal, round and reactive to light.? Neck: Normal inspection.? Neck supple.? CVS: Normal heart rate and rhythm.? Pulses normal.? Respiratory: No respiratory distress.? Breath sounds normal.? Abdomen: Soft and nontender.? Skin: Skin warm and dry.? Normal skin color.? Normal skin turgor.?+ stage two pressure ulcer to buttocks B/l lower extremities w/ dry skin and third spacing Extremities: 3+ pitting edema from the knee down b/l. No calf ttp. Global weakness Neuro: Oriented X 3.? No motor deficit.? No sensory deficit. CN 2-12 intact Course Reevaluation(s) Reevaluation #1: CBC with a normocytic anemia appears to be around patient's baseline. Chemistry no acute findings requiring intervention. Patient's BNP 207. CPK 110. Lactic negative. UA + for infection. ATBX ordered. Troponin pending, ekg non ischemic.. At this time infection suspected, ceftriaxone ordered. Will hold on fluids as patient has history of CHF. Time: 10:25 Reevaluation #2: Troponin negative. Patient now febrile Tylenol ordered. Imaging head, neck, abd pending. Time: 10:57 Reevaluation #3: CT abdomen pelvis progression of retractile soft tissue mass with dystrophic calcification within the mesentery chest x-ray no acute findings. CT head and cervical spine pending. Plan hospital admission Medications Administered Discontinued Medications Generic Name Dose Route Start Last Admin Trade Name Freq PRN Reason Stop Dose Admin Acetaminophen 650 mg 08/18/23 10:56 08/18/23 11:12 Acetaminophen 325 Mg Tablet PO 08/18/23 10:57 650 mg ONCE ONE Administration Ceftriaxone Sodium 1 gm/ 50 mls @ 100 mls/hr 08/18/23 10:24 08/18/23 11:13 Sodium Chloride IV 08/18/23 10:53 Infused ONCE ONE Infusion Medical Decision Making Medical Decision Making [facility] Narrative: 88-year-old pleasant male presents with weakness, worsening over the past few days. No other complaints physical exam global weakness. No focal deficits. + stage two pressure ulcer to buttocks ( image in chart) 3+ pitting edema from the knee down b/l. B/l lower extremities w/ dry skin and third spacing history and physical exam concerning for possible metabolic derangements, UTI. Unlikely intracranial hemorrhage, stroke, posterior stroke, pneumonia. Plan at this time labs, urine. Differential Diagnosis Differential Diagnoses: The differential diagnosis associated with the presentation includes history and physical exam concerning for possible metabolic derangements, UTI. Unlikely intracranial hemorrhage, stroke, posterior stroke, pneumonia. Admission/Observation Consideration of admission/observation: Escalation of care including admission/observation considered Lab Data [facility] Lab Attestation statement: I reviewed the patient's lab results. 08/18/23 09:54 08/18/23 09:54 Labs: Lab Results 08/18/23 08/18/23 Range/Units 09:54 10:05 WBC 8.5 (4.8-10.8) X10*3/uL RBC 3.30 L (4.60-5.80) X10*6/uL Hgb 9.3 L (14.0-18.0) g/dl Hct 29.2 L (42.0-52.0) % MCV 88.5 (80.0-98.0) fL MCH 28.2 (27.0-33.0) pg MCHC 31.8 (31.0-36.0) g/dl RDW 15.4 (11.0-16.0) % Plt Count 292 D (160-400) X10*3/uL MPV 10.3 (9.4-12.4) fL Immature Gran % (Auto) 0.5 H (0.0-0.4) % Neut % (Auto) 70.8 (45-73) % Lymph % (Auto) 13.3 L (20-40) % [place] % (Auto) 14.6 H (2-11) % Eos % (Auto) 0.4 (0-4) % Baso % (Auto) 0.4 (0-2) % Lymph # (Auto) 1.1 L (1.2-4.9) X10*3/uL [place] # (Auto) 1.2 (0.1-1.2) X10*3/uL Eos # (Auto) 0.0 (0.0-0.4) X10*3/uL Baso # (Auto) 0.0 (0.0-0.2) X10*3/uL Abs Immat Gran (auto) 0.04 H (0.00-0.03) X10*3/uL Absolute Neuts (auto) 6.0 (2.0-8.3) x10*3/uL Absolute Nucleated RBC 0.000 (0.0-0.012) X10*3/uL Nucleated RBC % (auto) 0.0 (0.0-0.2) /100WBC Sodium 135 (135-145) mmol/L Potassium 4.0 (3.3-5.1) mmol/L Chloride 101 (96-108) mmol/L Carbon Dioxide 26 (22-29) mmol/L Anion Gap 12 (12-20) BUN 19 H (9-16) mg/dL Creatinine 1.23 (0.5-1.4) mg/dL Estim Creat Clear Calc 36.6 Estimated GFR 56 Random Glucose 103 (60-115) mg/dL Lactic Acid 0.9 (0.5-2.0) mmol/L Calcium 9.7 D (8.4-10.2) mg/dL Magnesium 1.9 (1.6-2.6) mg/dL Total Bilirubin 0.6 (0.0-1.0) mg/dL AST 17 (5-37) U/L ALT 8 (0-40) U/L Alkaline Phosphatase 69 (39-117) U/L Total Creatine Kinase 110 (38-174) U/L Troponin I High Sens 10.2 D (<3.5-35.0) ng/L B-Natriuretic Peptide 207 H (<100) pg/mL Total Protein 7.9 (6.5-8.0) g/dL Albumin 3.9 (3.5-5.0) g/dL Urine Color Yellow Urine Appearance Cloudy Urine pH 7.0 (5.0-9.0) Ur Specific [place] 1.015 (1.005-1.025) Urine Protein 30 (1+) H (Neg-Trace) mg/dL Urine Glucose (UA) Negative (Negative) mg/dL Urine Ketones Negative (Negative) mg/dL Urine Blood Small (1+) H (Negative) Urine Nitrite Negative (Negative) Ur Leukocyte Esterase Moderate (2+) H (Negative) Urine RBC 6-10 H (0-2) /HPF Urine WBC 11-20 H (0-5) /HPF Ur Squamous Epith Cells 6-10 (0-2) /HPF Urine Bacteria 4+ (None Seen) Hyaline Casts 0-2 (0-2) /LPF Independent Interpretation I performed an independent interpretation of an: EKG and Plain X-Ray Radiology Impression Discussion of test interpretation with radiology: I have reviewed the radiologist's reading. External Record Review External record reviewed: Inpatient record, Office record, Outpatient record, Prior outpatient labs, Prior outpatient radiology, Primary care record and Outside ED record Critical Care Time Critical Care Time Critical Care Time: Yes Total Critical Care Time: 60 Attestation: I attest to this time spent taking care of the patient, obtaining history, physical, reviewing labs, imaging, speaking to my attending, speaking to specialist. Discharge Plan Discharge Clinical Impression: Fall, Weakness, Acute UTI Patient Disposition: Admitted As Inpatient
--- NOTE | 2023-08-18 09:22 | ECG_ITS ---
Test Reason : AMS Blood Pressure : / mmHG Vent. Rate : 091 BPM Atrial Rate : 000 BPM P-R Int : 000 ms QRS Dur : 078 ms QT Int : 334 ms P-R-T Axes : 000 070 088 degrees QTc Int : 410 ms Normal sinus rhythm with occasional Premature ventricular complexes Nonspecific ST and T wave abnormality Abnormal ECG When compared with ECG of 13-SEP-2022 11:20, T wave inversion less evident in Anterior leads Referred By: Nima Grimaldo Electronically Signed By:Abdoul Josue
[2023-08-18 09:59] LABS: MANUAL DIFF FLAG NO
[2023-08-18 10:01] LABS: Basophils Percent Auto 0.4 % (0-2); Eosinophils Percent Auto 0.4 % (0-4); Hematocrit 29.2 % (42.0-52.0); Hemoglobin 9.3 g/dl (14.0-18.0); Imm Gran Abs Auto 0.04 X10*3/uL (0.00-0.03); Imm Gran Pct Auto 0.5 % (0.0-0.4); Lymphocytes Absolute Auto 1.1 X10*3/uL (1.2-4.9); Lymphocytes Percent Auto 13.3 % (20-40); Mean Corpuscular HGB Conc 31.8 g/dl (31.0-36.0); Mean Corpuscular Hemoglobin 28.2 pg (27.0-33.0); Mean Corpuscular Volume 88.5 fL (80.0-98.0); Mean Platelet Volume 10.3 fL (9.4-12.4); Monocytes Absolute Auto 1.2 X10*3/uL (0.1-1.2); Monocytes Percent Auto 14.6 % (2-11); Neutrophils Percent Auto 70.8 % (45-73); Platelet Count 292 X10*3/uL (160-400); Red Cell Distribution Width 15.4 % (11.0-16.0); White Blood Count 8.5 X10*3/uL (4.8-10.8)
[2023-08-18 10:15] LABS: Appearance Urine Cloudy; Color Urine Yellow; Glucose Urine UA Negative (Negative); Leukocyte Esterase Urine Moderate (2+) (Negative); Nitrite Urine Negative (Negative); Specific Gravity - Urine 1.015 (1.005-1.025); UMIC TRIGGER UACC YES; Urine Blood Small (1+) (Negative); Urine Ketones Negative (Negative); Urine Protein 30 (1+) mg/dL (Neg-Trace)
[2023-08-18 10:16] LABS: Lactic Acid 0.9 mmol/L (0.5-2.0)
[2023-08-18 10:19] LABS: Alanine Aminotransferase 8 U/L (0-40); Albumin Level 3.9 g/dL (3.5-5.0); Alkaline Phosphatase 69 U/L (39-117); Anion Gap 12 (12-20); Aspartate Amino Transferase 17 U/L (5-37); Bilirubin Total 0.6 mg/dL (0.0-1.0); Blood Urea Nitrogen 19 mg/dL (9-16); Calcium 9.7 mg/dL (8.4-10.2); Carbon Dioxide 26 mmol/L (22-29); Chloride 101 mmol/L (96-108); Creatinine Clr Calc Pharmacy 36.6; Estimated Glomerular Filt Rate 56; Glucose Random 103 mg/dL (60-115); Magnesium 1.9 mg/dL (1.6-2.6); Sodium 135 mmol/L (135-145); Total Protein 7.9 g/dL (6.5-8.0)
[2023-08-18 10:19] LABS: Bacteria Urine 4+ (None Seen); Hyaline Casts Urine 0-2 /LPF (0-2); UACC Culture Trigger YES
[2023-08-18 10:21] LABS: B Type Natriuretic Peptide 207 pg/mL (<100)
--- NOTE | 2023-08-18 10:24 | PC.NURSE ---
incont for urine- [place] cath applied. new pad/blanket/gown. td wipe. boosted. pillows under side/legs. repositioned
[2023-08-18 10:27] LABS: Troponin-I High Sensitivity 10.2 ng/L (<3.5-35.0)
[2023-08-18] MEDS: cefTRIAXone sodium 1 GM in 0.9 % Sodium Chloride 50 ML IV (10:41)
[2023-08-18] MEDS: Acetaminophen 325 MG TABLET 650 MG PO (11:12)
--- NOTE | 2023-08-18 11:23 | PC.NURSE ---
changed for urinary incont. new condom cath applied. td wiped. cream applied. mepilex applied. new gown/blanket. boosted/repositioned w tech. pillows under legs and side.
--- NOTE | 2023-08-18 13:43 | P.HPHOSP_ITS ---
History of Present Illness Date of Service: 08/18/23 Attending physician on admission: Antelmo Zepeda Chief Complaint: Fall at home Pt is an 88-year-old male with a PMH significant for?HTN, HLD, hx of NSTEMI, TIA, and strangulated inguinal hernia s/p bowel resection who presents to the ED from home for evaluation of worsening generalized weakness, fatigue, and malaise. ?Patient himself does not know why he presented to the emergency room, so HPI taken from via phone call. states that patient has been declining the past few months ever since he developed an ulcer on his left upper leg. Since then has been having difficulty walking. Uses walker at baseline at home. herself is unable to walk and bed-bound baseline. states last night she woke up at 01:00 and noticed the lytes were still on. sleeps in a recliner, and she noted that he had slid off the front of his seat and was sitting on a stool in front of the chair. He seemed confused and unable to get from a sitting position. then called EMS to bring him to the hospital for further evaluation. mentions they have [facility]NA Services to look after patient's leg ulcer, but visits have apparently been sporadic. Reports they also have assistance with someone who comes in to cook breakfast and dinner. Patient himself denies any acute complaints. Says he feels ?all right? and overall ?fine?. Primary denies chest pain/pressure, palpitations. Denies musculoskeletal pain. No fever, chills, nausea, vomiting, abdominal pain. No shortness of breath. In the ED pt with elevated temperature up to 100.5, elevated heart rate up to 91, and was hypertensive at 168/78. Labs were significant for slightly elevated BNP of 207, otherwise grossly unremarkable and at baseline for patient. No leukocytosis. Stable normocytic anemia of 9.3/29.2. No electrolyte abnormalities. Kidney function around baseline. Hepatic function baseline. CPK 110. Troponin WNL. CXR showed no acute cardiopulmonary disease. CT of abdomen and pelvis found progression of retractile soft tissue mass with dystrophic calcification within the mesentery, and left inguinal hernia without evidence of acute complication. CT of head showed extensive chronic with no acute findings. CT of cervical spine found no acute osseous abnormalities.EKG reported poor data quality but demonstrated possible accelerated junctional rhythm with occasional with PVCs and inverted T-waves in V4 and V5. Pt was treated with acetaminophen and ceftriaxone. Pt will be admitted to the hospital for treatment and further evaluation of generalized weakness and failure to thrive in the setting of acute UTI. Review of Systems 2 Review of Systems: Pt reports no acute medical complaints at this time [facility] Medical History Abnormal CT scan Inguinal hernia with strangulation TIA (transient ischemic attack) Hypercholesterolemia Hypertension Surgical History History of right inguinal hernia repair Social History Household Members: Spouse Housing: Apartment Do you presently have visiting nurse or other home services: Yes Alcohol intake: former Patient Tobacco Use Status: Never used Tobacco Smoked in Last 30 Days: No Use of substances other than those prescribed or required for medical reasons: No Advance Directives: Yes Advance Directives on File: Yes Advance Directives Date on File: 09/17/22 service: Yes Current occupational status: [employer] Allergies Allergy/AdvReac Type Severity Reaction Status Date / Time No Known Allergies Allergy Unverified 06/08/21 11:28 [No Known Allergies*] Physical Exam 2 Vital Signs and Narrative: Vital Signs: Last Vital Signs Temp 100.5 F H 08/18/23 10:57 Pulse 83 08/18/23 10:57 Resp 16 08/18/23 10:57 BP 152/74 H 08/18/23 10:57 Pulse Ox 98 08/18/23 10:57 O2 Del Method Room Air 08/18/23 10:57 BMI result Body Mass Index 20.5 Constitutional: Alert, frail-looking, unkempt, in no acute distress. Mental Status: Oriented to person, place, and time, but not to situation. Eyes: Pupils are equal, round, and reactive to light. Ear, Nose, and Throat: Oropharynx clear, mucous membranes moist. Ears and nose without deformities. Trachea midline. Respiratory: Clear to auscultation bilaterally. No wheezing, rales, or rhonchi. Cardiovascular: S1, S2 regular. No murmurs, rubs, or gallops. Gastrointestinal: Abdomen soft, non-tender, non-distended. Normal bowel sounds. Neurologic: Cranial nerves II-XII are grossly intact bilaterally. No focal neurological deficits. Moves all extremities spontaneously. Global weakness noted, especially in lower extremities. Skin: Stage 1 sacral decubitus ulcer and stage II decubitus ulcer left buttock. As pictured below. Musculoskeletal: No cyanosis or clubbing. Extremities: 1+ bilateral pitting edema. Lower extremity skin dry and cracked. As pictured below. Psychiatric: Normal mood and affect. Results Labs 08/18/23 09:54 08/18/23 09:54 Labs: Laboratory Results - last 24 hr 08/18/23 08/18/23 09:54 10:05 MCV 88.5 MCH 28.2 MCHC 31.8 RDW 15.4 Plt Count 292 D MPV 10.3 Immature Gran % (Auto) 0.5 H Neut % (Auto) 70.8 Lymph % (Auto) 13.3 L [place] % (Auto) 14.6 H Eos % (Auto) 0.4 Baso % (Auto) 0.4 Lymph # (Auto) 1.1 L [place] # (Auto) 1.2 Eos # (Auto) 0.0 Baso # (Auto) 0.0 Abs Immat Gran (auto) 0.04 H Absolute Neuts (auto) 6.0 Absolute Nucleated RBC 0.000 Nucleated RBC % (auto) 0.0 Anion Gap 12 Estim Creat Clear Calc 36.6 Estimated GFR 56 Random Glucose 103 Lactic Acid 0.9 Calcium 9.7 D Magnesium 1.9 Total Bilirubin 0.6 AST 17 ALT 8 Alkaline Phosphatase 69 Total Creatine Kinase 110 Troponin I High Sens 10.2 D B-Natriuretic Peptide 207 H Total Protein 7.9 Albumin 3.9 Urine Color Yellow Urine Appearance Cloudy Urine pH 7.0 Ur Specific [place] 1.015 Urine Protein 30 (1+) H Urine Glucose (UA) Negative Urine Ketones Negative Urine Blood Small (1+) H Urine Nitrite Negative Ur Leukocyte Esterase Moderate (2+) H Urine RBC 6-10 H Urine WBC 11-20 H Ur Squamous Epith Cells 6-10 Urine Bacteria 4+ Hyaline Casts 0-2 Imaging Radiologist's Impressions: Impressions Chest X-Ray 08/18/23 09:35 IMPRESSION: No acute cardiopulmonary disease. Abdomen/Pelvis CT 08/18/23 11:33 IMPRESSION: Progression of retractile soft tissue mass with dystrophic calcification within the mesentery measuring 7.1 x 2.6 x 6.4 cm relative to 07/09/2020. Evaluation is limited by lack of intravenous contrast. Left inguinal hernia containing colon and small fluid without evidence of acute complication. Assessment and Plan (1) Acute UTI: Status: Acute (2) Weakness: Status: Acute Plan Pt is an 88-year-old male with a PMH significant for?HTN, HLD, hx of NSTEMI, TIA, and strangulated inguinal hernia s/p bowel resection who presents to the ED from home for evaluation of worsening generalized weakness, fatigue, and malaise. Pt will be admitted to the hospital for treatment and further evaluation of generalized weakness and failure to thrive in the setting of acute UTI. Acute UTI Patient with weakness, fatigue, reported confusion at home Patient does not meet sepsis criteria: Initial tachycardia, but no fever, tachypnea, or leukocytosis Will treat with ceftriaxone, started 08/18/[address] on maintenance fluids Follow cultures Stage II decubitus ulcer of left buttock Wound care consult Air loss mattress Patient positioning q.2 hours Generalized weakness/failure to thrive In the setting of above Patient sleeping in recliner, slid to and unable to get All imaging negative for acute fractures or subluxations PT evaluation HTN Continue amlodipine HLD/CAD Continue aspirin and statin Full Code Attending:?Dr. Lujan DVT Prophylaxis: Lovenox Pt will require a hospitalization of at least two nights for treatment and further evaluation of generalized weakness and failure to thrive in the setting of acute UTI. Given patient's significant comorbidities and inability to ambulate on his own he will require hospitalization treatment with IV antibiotics and specialist consultation to evaluate for safe disposition home. Quality Stroke Does the patient have a stroke diagnosis?: No VTE Prior VTE?: No VTE Risk Level:: Medical - moderate - high VTE Device Contraindication: Treatment Not Indicated VTE Drug Contraindication: N/A - Med Ordered
--- NOTE | 2023-08-18 14:16 | PC.NURSE ---
given po fluids, drank well. condom cath intact draining yellow urine. no distress. vss. talking well.
[2023-08-18] MEDS: 0.9 % Sodium Chloride 1,000 ML 100 ML IVCONT (16:38)
[2023-08-18] MEDS: Enoxaparin Sodium 40 MG/0.4 ML SYRINGE SUBCUT (16:44)
--- NOTE | 2023-08-18 18:56 | PHA.MEDREC ---
Pharmacy Consult ? Medication Reconciliation Pharmacy has completed the medication reconciliation. Both patient and were unsure of medications. [facility] Brodie EvansD
--- NOTE | 2023-08-18 20:19 | PC.NURSE ---
pt moved into hospital bed repositioned to R. side. dressing intact on sacrum/buttocks at this time. nad. resting comfortably. bed alarm on. call last within reach.
--- NOTE | 2023-08-18 23:04 | MHC.EDTECH ---
Pt removed condom catheter and was incontinent of urine. Pt td care done, bedding and gown changed and new condom catheter secured. RN aware
[2023-08-19] VITALS (7 sets, daily range): BP systolic 139–170; BP diastolic 64–84; PULSE 67–76; RESP 14–18; TEMP 36.1–36.8; O2SAT 95–100; BMI 20.5
[2023-08-19] MEDS: 0.9 % Sodium Chloride 1,000 ML 100 ML IVCONT (02:55)
[2023-08-19 05:52] LABS: Hematocrit 27.4 % (42.0-52.0); Hemoglobin 8.5 g/dl (14.0-18.0); Mean Corpuscular Hemoglobin 27.7 pg (27.0-33.0); Mean Corpuscular Volume 89.3 fL (80.0-98.0); Mean Platelet Volume 11.2 fL (9.4-12.4); Platelet Count 262 X10*3/uL (160-400); Red Blood Count 3.07 X10*6/uL (4.60-5.80); Red Cell Distribution Width 15.1 % (11.0-16.0); White Blood Count 7.5 X10*3/uL (4.8-10.8)
[2023-08-19 06:22] LABS: Anion Gap 11 (12-20); Blood Urea Nitrogen 16 mg/dL (9-16); Calcium 8.9 mg/dL (8.4-10.2); Carbon Dioxide 24 mmol/L (22-29); Chloride 105 mmol/L (96-108); Creatinine Clr Calc Pharmacy 51.7; Estimated Glomerular Filt Rate > 60; Glucose Random 95 mg/dL (60-115); Potassium 3.9 mmol/L (3.3-5.1); Sodium 136 mmol/L (135-145)
--- NOTE | 2023-08-19 07:55 | PC.NURSE ---
admission worksheet completed. transport notified at this time.
[2023-08-19] MEDS: hydroCHLOROthiazide 12.5 MG TABLET PO (09:44)
[2023-08-19] MEDS: Aspirin Enteric Coated 81 MG TABLET.DR PO (09:44)
--- NOTE | 2023-08-19 09:48 | PC.NURSE ---
vss and up to date. 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 pt verbalizing 3/10 discomfort in the LLE. does not want prn administered at this time. pt sitting upright/eating breakfast in no apparent distress at this time. no sob/wob noted. respirations even and unlabored. pt waiting for bed assignment at this time. plan of care ongoing. call last placed within reach.
--- NOTE | 2023-08-19 11:45 | PC.NURSE ---
Right lower extremity wounds
--- NOTE | 2023-08-19 11:46 | PC.NURSE ---
right lower extremity wound
--- NOTE | 2023-08-19 11:50 | PC.NURSE ---
left buttock wound- foam dressing applied
--- NOTE | 2023-08-19 11:52 | PC.NURSE ---
left leg wound
[2023-08-19] MEDS: cefTRIAXone sodium 1 GM in 0.9 % Sodium Chloride 50 ML IV (11:58)
--- NOTE | 2023-08-19 13:07 | MHC.CLN ---
NUTRITION DIET=REGULAR. ADDING ENSURE BID (700 KCALS, 40 G PROTEIN). STAGE II PRESSURE INJURY TO LEFT BUTTOCK. QUALIFIES SEVERE MALNUTRITION IN THE CONTEXT OF ACUTE ILLNESS. SIGNIFICANT WEIGHT LOSS X 4 MONTHS, -12.9%. MODERATE DEPLETION OF MUSCLE MASS AND BODY FAT NOTED. SUPPLEMENT TO PROMOTE WOUND HEALING AND PROVIDE ADDITIONAL KCALS. PATIENT EATS WELL PER STAFF. FOLLOW FOR INTAKE AND WOUND HEALING.
[2023-08-19] MEDS: Enoxaparin Sodium 40 MG/0.4 ML SYRINGE SUBCUT (16:23)
[2023-08-19] MEDS: 0.9 % Sodium Chloride Flush 3 ML SYRINGE IVFLUSH ×2 (16:23→23:31)
--- NOTE | 2023-08-19 16:38 | P.PNIM_ITS ---
Subjective Subjective Date of Service: 08/20/23 Interval History: Offers no acute complaints resting comfortably tolerated breakfast no nausea, no vomiting, no abdominal pain, no fevers, no chills , no acute events overnight. Review of Systems All other symptoms reviewed and negative. Physical Exam 2 Vital Signs: Vital Signs: Last Vital Signs Temp 98.1 F 08/19/23 14:59 Pulse 71 08/19/23 14:59 Resp 18 08/19/23 14:59 BP 157/72 H 08/19/23 14:59 Pulse Ox 97 08/19/23 14:59 O2 Del Method Room Air 08/19/23 14:59 BMI result Body Mass Index 20.5 Const: Other: General resting comfortably in no acute distress. Neck supple no JVD. CVS regular rate rhythm, Respiratory lungs clear to auscultation, no respiratory distress, no wheeze, no rhonchi. Gastrointestinal abdomen soft, non tender, bowel sounds audible, no guarding , no rigidity. Extremities dry scaly skin Neuro non focal Psych appropriate affect Objective Data Active Medications Acetaminophen (Acetaminophen 325 Mg Tablet) 650 mg PO Q6H PRN PRN Reason: Pain, Mild (Pain Scale 1-3) Aspirin (Aspirin Enteric Coated 81 Mg Tablet.Dr) 81 mg PO DAILY [facility] Last Admin: 08/19/23 09:44 Dose: 81 mg Documented By: DENZEL Atorvastatin Calcium (Atorvastatin Calcium 80 Mg Tablet) 80 mg PO BEDTIME [facility] Benzonatate (Benzonatate 100 Mg Capsule) 100 mg PO TID PRN PRN Reason: Cough Calcium Carbonate/Cholecalciferol (Calcium + Vitamin D 250 Mg Tablet) 250 mg PO DAILY [facility] Docusate Sodium (Docusate Sodium 100 Mg Capsule) 100 mg PO DAILY PRN PRN Reason: Constipation Enoxaparin Sodium (Enoxaparin Sodium 40 Mg/0.4 Ml Syringe) 40 mg SUBCUT Q24H [facility] Last Admin: 08/19/23 16:23 Dose: 40 mg Documented By: DENNIS Hydrochlorothiazide (Hydrochlorothiazide 12.5 Mg Tablet) 12.5 mg PO DAILY [facility]; Protocol Last Admin: 08/19/23 09:44 Dose: 12.5 mg Documented By: DENZEL Ceftriaxone Sodium 1 gm/ (Sodium Chloride) 50 mls @ 100 mls/hr IV Q24H [facility] Last Infusion: 08/19/23 12:31 Dose: Infused Documented By: ISAK Melatonin (Melatonin 3 Mg Tablet) 6 mg PO BEDTIME PRN PRN Reason: Insomnia Ondansetron HCl (Ondansetron Hcl 4 Mg/2 Ml Vial) 4 mg IVPUSH Q8H PRN PRN Reason: Nausea and Vomiting Sodium Chloride (0.9 % Sodium Chloride Flush 3 Ml Syringe) 3 ml IVFLUSH QSHIFT [facility] Last Admin: 08/19/23 16:23 Dose: 3 ml Documented By: DENNIS Labs 08/19/23 05:09 08/19/23 05:09 Labs: Laboratory Results - last 24 hr 08/19/23 05:09 MCV 89.3 MCH 27.7 MCHC 31.0 RDW 15.1 Plt Count 262 MPV 11.2 Absolute Nucleated RBC 0.000 Nucleated RBC % (auto) 0.0 Anion Gap 11 L Estim Creat Clear Calc 51.7 Estimated GFR > 60 Random Glucose 95 Calcium 8.9 D Microbiology Microbiology Results: Microbiology 08/18/23 10:25 Blood Culture - Preliminary Blood - Venous No growth after 24 hours. 08/18/23 09:54 Blood Culture - Preliminary Blood - Venous No growth after 24 hours. 08/18/23 Unknown Urine Culture - Preliminary Urine clean catch - Urine schofield top Gram negative eduardo Assessment and Plan (1) Acute UTI: Status: Acute (2) Weakness: Status: Acute Plan 88-year-old male with a PMH significant for?HTN, HLD, hx of NSTEMI, TIA, and strangulated inguinal hernia s/p bowel resection who presents to the ED from home for evaluation of worsening generalized weakness, fatigue, and malaise. Pt will be admitted to the hospital for treatment and further evaluation of generalized weakness and failure to thrive in the setting of acute UTI. Acute UTI No fevers, normal WBC continue IV ceftriaxone day 2 urine culture growing Gram- negative rods Follow cultures Stage II decubitus ulcer of left buttock Wound care consult pending Air loss mattress, positioning change q.2 hours Generalized weakness/failure to thrive In the setting of above,Patient sleeping in recliner, slid to floor and unable to get up All imaging negative for acute fractures or subluxations PT recommended short-term rehab to maximize function and safety at home HTN Noted to have elevated blood pressures will add amlodipine 5 mg and resume hydrochlorothiazide, follow BP HLD/CAD Continue aspirin and Lipitor 80 mg Full Code DVT Prophylaxis: Lovenox Pt will require continued inpatient hospitalization for generalized weakness and failure to thrive in the setting of acute UTI. Given patient's significant comorbidities and inability to ambulate on his own he will require hospitalization treatment with IV antibiotics and specialist consultation to evaluate for safe disposition home. Quality Stroke Does the patient have a stroke diagnosis?: No VTE Prior VTE?: No VTE Risk Level:: Medical - moderate - high VTE Device Contraindication: Treatment Not Indicated VTE Drug Contraindication: N/A - Med Ordered
[2023-08-19] MEDS: Atorvastatin Calcium 80 MG TABLET PO (19:06)
[2023-08-20 03:16] VITALS: BP 158/72; PULSE 74; RESP 16; TEMP 36.7; O2SAT 98
[2023-08-20 07:22] VITALS: BP 152/72; PULSE 73; RESP 18; TEMP 36.6; O2SAT 95
[2023-08-20] MEDS: Calcium + Vitamin D 250 MG TABLET PO (07:52)
[2023-08-20] MEDS: Aspirin Enteric Coated 81 MG TABLET.DR PO (07:52)
[2023-08-20] MEDS: hydroCHLOROthiazide 12.5 MG TABLET PO (07:52)
[2023-08-20] MEDS: 0.9 % Sodium Chloride Flush 3 ML SYRINGE IVFLUSH ×3 (07:52→19:48)
[2023-08-20] MEDS: Acetaminophen 325 MG TABLET 650 MG PO (07:54)
--- NOTE | 2023-08-20 10:28 | P.PNIM_ITS ---
Subjective Subjective Date of Service: 08/20/23 Interval History: Resting comfortably in bed offers no acute complaints, tolerating diet no nausea, no vomiting, no abdominal pain, no fevers, no urinary symptoms, denies lightheadedness or dizziness, no acute events overnight. Review of Systems All other system reviewed and negative. Physical Exam 2 Vital Signs: Vital Signs: Last Vital Signs Temp 97.9 F 08/20/23 07:22 Pulse 73 08/20/23 07:22 Resp 18 08/20/23 07:22 BP 152/72 H 08/20/23 07:22 Pulse Ox 95 08/20/23 07:22 O2 Del Method Room Air 08/20/23 07:22 BMI result Body Mass Index 20.5 Const: Other: General resting comfortably in no acute distress. Neck supple no JVD. CVS regular rate rhythm, Respiratory lungs clear to auscultation, no respiratory distress, no wheeze, no rhonchi. Gastrointestinal abdomen soft, non tender, bowel sounds audible, no guarding , no rigidity. Extremities dry scaly skin Neuro non focal Psych appropriate affect Objective Data Active Medications Acetaminophen (Acetaminophen 325 Mg Tablet) 650 mg PO Q6H PRN PRN Reason: Pain, Mild (Pain Scale 1-3) Last Admin: 08/20/23 07:54 Dose: 650 mg Documented By: ISAK Amlodipine Besylate (Amlodipine Besylate 5 Mg Tablet) 5 mg PO DAILY [facility]; Protocol Aspirin (Aspirin Enteric Coated 81 Mg Tablet.) 81 mg PO DAILY [facility] Last Admin: 08/20/23 07:52 Dose: 81 mg Documented By: ISAK Atorvastatin Calcium (Atorvastatin Calcium 80 Mg Tablet) 80 mg PO BEDTIME [facility] Last Admin: 08/19/23 19:06 Dose: 80 mg Documented By: DENNIS Benzonatate (Benzonatate 100 Mg Capsule) 100 mg PO TID PRN PRN Reason: Cough Calcium Carbonate/Cholecalciferol (Calcium + Vitamin D 250 Mg Tablet) 250 mg PO DAILY [facility] Last Admin: 08/20/23 07:52 Dose: 250 mg Documented By: ISAK Docusate Sodium (Docusate Sodium 100 Mg Capsule) 100 mg PO DAILY PRN PRN Reason: Constipation Enoxaparin Sodium (Enoxaparin Sodium 40 Mg/0.4 Ml Syringe) 40 mg SUBCUT Q24H [facility] Last Admin: 08/19/23 16:23 Dose: 40 mg Documented By: DENNIS Hydrochlorothiazide (Hydrochlorothiazide 12.5 Mg Tablet) 12.5 mg PO DAILY [facility]; Protocol Last Admin: 08/20/23 07:52 Dose: 12.5 mg Documented By: ISAK Ceftriaxone Sodium 1 gm/ (Sodium Chloride) 50 mls @ 100 mls/hr IV Q24H [facility] Last Infusion: 08/19/23 12:31 Dose: Infused Documented By: ISAK Melatonin (Melatonin 3 Mg Tablet) 6 mg PO BEDTIME PRN PRN Reason: Insomnia Ondansetron HCl (Ondansetron Hcl 4 Mg/2 Ml Vial) 4 mg IVPUSH Q8H PRN PRN Reason: Nausea and Vomiting Sodium Chloride (0.9 % Sodium Chloride Flush 3 Ml Syringe) 3 ml IVFLUSH QSHIFT [facility] Last Admin: 08/20/23 07:52 Dose: 3 ml Documented By: ISAK Labs 08/19/23 05:09 08/19/23 05:09 Microbiology Microbiology Results: Microbiology 08/18/23 Unknown Urine Culture - Final Urine clean catch - Urine schofield top Proteus penneri 08/18/23 10:25 Blood Culture - Preliminary Blood - Venous No growth after 24 hours. 08/18/23 09:54 Blood Culture - Preliminary Blood - Venous No growth after 24 hours. Assessment and Plan (1) Acute UTI: Status: Acute (2) Weakness: Status: Acute Plan 88-year-old male with a PMH significant for?HTN, HLD, hx of NSTEMI, TIA, and strangulated inguinal hernia s/p bowel resection who presents to the ED from home for evaluation of worsening generalized weakness, fatigue, and malaise. Pt will be admitted to the hospital for treatment and further evaluation of generalized weakness and failure to thrive in the setting of acute UTI. Acute UTI No fevers, normal WBC Urine culture grew Proteus penneri resistant to ceftriaxone, on IV ceftriaxone day 3, will DC ceftriaxone and placed on Levaquin Blood cultures x2 negative Stage II decubitus ulcer of left buttock Wound care consult pending Air loss mattress, positioning change q.2 hours Generalized weakness/failure to thrive In the setting of above,Patient sleeping in recliner, slid to floor and unable to get up All imaging negative for acute fractures or subluxations PT recommended short-term rehab to maximize function and safety at home. HTN Continue amlodipine 5 mg and hydrochlorothiazide, follow BP closely HLD/CAD Continue aspirin and Lipitor 80 mg Full Code DVT Prophylaxis: Lovenox Pt will require continued inpatient hospitalization for generalized weakness and failure to thrive in the setting of acute UTI. Given patient's significant comorbidities and inability to ambulate on his own he will require hospitalization treatment with IV antibiotics and specialist consultation to evaluate for safe disposition home. Quality Stroke Does the patient have a stroke diagnosis?: No VTE Prior VTE?: No VTE Risk Level:: Medical - moderate - high VTE Device Contraindication: Treatment Not Indicated VTE Drug Contraindication: N/A - Med Ordered
[2023-08-20] MEDS: amLODIPine Besylate 5 MG TABLET PO (10:57)
[2023-08-20] MEDS: levoFLOXacin/D5W 500 MG/100 ML PIGGYBACK 100 MG IV (10:59)
--- NOTE | 2023-08-20 15:44 | MHC.CM.PN ---
Addendum entered by Lynnette Campuzano 08/21/23 15:17: PT HAS RECOMMENDED STR, PT STATING HE WANTS TO DC HOME HE CARES FOR HIS WHO IS NON-AMBULATORY CM WILL MEET WITH PT AGAIN TOMORROW AFTER HE IS SEEN BY PT AGAIN Original Note: PT REPORTS HE LIVES WITH HIS AND THEY HAVE CABLE [employer] SERVICES FOR MEALS AND A SMALL AMOUNT OF HOUSEWORK HE REPORTS HIS HAS A WALKER HE USES SOMETIMES BUT IT IS UNSTABLE, HE WOULD LIKE ONE OF HIS OWN HE IS UNSURE IF HE HAS A HCP BUT DECLINES TO COMPLETE ONE TODAY HE SAYS HIS PCP IS AT THE [facility] [place] [facility] DELIVERED DCP: HOME NO SERVICES VIA SISTER VS SHUTTLE
[2023-08-20 16:00] VITALS: BP 120/66; PULSE 72; RESP 18; TEMP 36.2; O2SAT 96
[2023-08-20] MEDS: Enoxaparin Sodium 40 MG/0.4 ML SYRINGE SUBCUT (16:06)
[2023-08-20] MEDS: Atorvastatin Calcium 80 MG TABLET PO (19:46)
[2023-08-20 20:00] VITALS: BP 147/66; PULSE 74; RESP 16; TEMP 36.5; O2SAT 95
[2023-08-20 23:23] VITALS: BP 141/71; PULSE 73; RESP 16; TEMP 36.4; O2SAT 95
[2023-08-21 03:40] VITALS: BP 158/72; PULSE 76; RESP 16; TEMP 36.7; O2SAT 94
[2023-08-21 07:36] VITALS: BP 134/71; PULSE 75; RESP 18; TEMP 37.3; O2SAT 95
[2023-08-21 07:38] VITALS: BP 134/71; PULSE 75; RESP 18; TEMP 37.6; O2SAT 95
[2023-08-21] MEDS: amLODIPine Besylate 5 MG TABLET PO (09:05)
[2023-08-21] MEDS: Acetaminophen 325 MG TABLET 650 MG PO (09:05)
[2023-08-21] MEDS: 0.9 % Sodium Chloride Flush 3 ML SYRINGE IVFLUSH ×3 (09:05→19:30)
[2023-08-21] MEDS: hydroCHLOROthiazide 12.5 MG TABLET PO (09:05)
[2023-08-21] MEDS: Aspirin Enteric Coated 81 MG TABLET.DR PO (09:05)
[2023-08-21] MEDS: Calcium + Vitamin D 250 MG TABLET PO (09:05)
[2023-08-21] MEDS: levoFLOXacin/D5W 500 MG/100 ML PIGGYBACK 100 MG IV (10:43)
--- NOTE | 2023-08-21 13:15 | HO.PM.IMPN ---
Subjective Subjective Date of Service: 08/21/23 Interval History: Complaining of left shoulder pain , denies trauma, otherwise offers no acute complaints, no fevers, no chills, no urinary symptoms, tolerating diet no nausea no vomiting, no lightheadedness or dizziness. Review of Systems All other system reviewed and negative Physical Exam Vital Signs: Vital Signs: Last Vital Signs Temp 99.6 F 08/21/23 07:38 Pulse 75 08/21/23 07:38 Resp 18 08/21/23 07:38 BP 134/71 08/21/23 07:38 Pulse Ox 95 08/21/23 07:38 O2 Del Method Room Air 08/21/23 07:38 BMI result Body Mass Index 20.5 Const: Other: General resting comfortably in no acute distress. Neck supple no JVD. CVS regular rate rhythm, Respiratory lungs clear to auscultation, no respiratory distress, no wheeze, no rhonchi. Gastrointestinal abdomen soft, non tender, bowel sounds audible, no guarding , no rigidity. Extremities dry scaly skin Left shoulder no redness, no swelling, decreased range of motion due to pain Neuro non focal Psych appropriate affect Objective Data Active Medications Acetaminophen (Acetaminophen 325 Mg Tablet) 650 mg PO Q6H PRN PRN Reason: Pain, Mild (Pain Scale 1-3) Last Admin: 08/21/23 09:05 Dose: 650 mg Documented By: MADHAVI Amlodipine Besylate (Amlodipine Besylate 5 Mg Tablet) 5 mg PO DAILY [facility]; Protocol Last Admin: 08/21/23 09:05 Dose: 5 mg Documented By: MADHAVI Aspirin (Aspirin Enteric Coated 81 Mg Tablet.) 81 mg PO DAILY [facility] Last Admin: 08/21/23 09:05 Dose: 81 mg Documented By: MADHAVI Atorvastatin Calcium (Atorvastatin Calcium 80 Mg Tablet) 80 mg PO BEDTIME [facility] Last Admin: 08/20/23 19:46 Dose: 80 mg Documented By: CRAIG Benzonatate (Benzonatate 100 Mg Capsule) 100 mg PO TID PRN PRN Reason: Cough Calcium Carbonate/Cholecalciferol (Calcium + Vitamin D 250 Mg Tablet) 250 mg PO DAILY [facility] Last Admin: 08/21/23 09:05 Dose: 250 mg Documented By: MADHAVI Docusate Sodium (Docusate Sodium 100 Mg Capsule) 100 mg PO DAILY PRN PRN Reason: Constipation Enoxaparin Sodium (Enoxaparin Sodium 40 Mg/0.4 Ml Syringe) 40 mg SUBCUT Q24H [facility] Last Admin: 08/20/23 16:06 Dose: 40 mg Documented By: ISAK Hydrochlorothiazide (Hydrochlorothiazide 12.5 Mg Tablet) 12.5 mg PO DAILY [facility]; Protocol Last Admin: 08/21/23 09:05 Dose: 12.5 mg Documented By: MADHAVI Levofloxacin (Levaquin) 500 mg in 100 mls @ 100 mls/hr IV Q24H [facility] Last Infusion: 08/21/23 11:52 Dose: Infused Documented By: MADHAVI Melatonin (Melatonin 3 Mg Tablet) 6 mg PO BEDTIME PRN PRN Reason: Insomnia Ondansetron HCl (Ondansetron Hcl 4 Mg/2 Ml Vial) 4 mg IVPUSH Q8H PRN PRN Reason: Nausea and Vomiting Sodium Chloride (0.9 % Sodium Chloride Flush 3 Ml Syringe) 3 ml IVFLUSH QSHIFT [facility] Last Admin: 08/21/23 09:05 Dose: 3 ml Documented By: MADHAVI Labs 08/19/23 05:09 08/19/23 05:09 Microbiology Microbiology Results: Microbiology 08/18/23 10:25 Blood Culture - Preliminary Blood - Venous No growth after 48 hours. 08/18/23 09:54 Blood Culture - Preliminary Blood - Venous No growth after 48 hours. 08/18/23 Unknown Urine Culture - Final Urine clean catch - Urine schofield top Proteus penneri Assessment and Plan (1) Acute UTI: Status: Acute (2) Weakness: Status: Acute Plan 88-year-old male with a PMH significant for?HTN, HLD, hx of NSTEMI, TIA, and strangulated inguinal hernia s/p bowel resection who presents to the ED from home for evaluation of worsening generalized weakness, fatigue, and malaise. Pt will be admitted to the hospital for treatment and further evaluation of generalized weakness and failure to thrive in the setting of acute UTI. Acute UTI No fevers, normal WBC Urine culture grew Proteus penneri resistant to ceftriaxone, on iv Levaquin day 2 Blood cultures x2 negative Stage II decubitus ulcer of left buttock Wound care consult pending Air loss mattress, positioning change q.2 hours Generalized weakness/failure to thrive In the setting of above,Patient sleeping in recliner, slid to floor and unable to get up All imaging negative for acute fractures or subluxations PT recommended short-term rehab to maximize function and safety at home. 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 Quality Stroke Does the patient have a stroke diagnosis?: No VTE Prior VTE?: No VTE Risk Level:: Medical - moderate - high VTE Device Contraindication: Treatment Not Indicated VTE Drug Contraindication: N/A - Med Ordered
[2023-08-21 15:06] VITALS: BP 134/63; PULSE 75; RESP 18; TEMP 37.2; O2SAT 98
[2023-08-21] MEDS: Enoxaparin Sodium 40 MG/0.4 ML SYRINGE SUBCUT (16:44)
[2023-08-21] MEDS: Atorvastatin Calcium 80 MG TABLET PO (19:36)
[2023-08-21 20:00] VITALS: BP 134/63; PULSE 76; RESP 16; TEMP 37.6; O2SAT 98
[2023-08-22 04:00] VITALS: BP 146/68; PULSE 74; RESP 16; TEMP 36.3; O2SAT 96
[2023-08-22 07:14] VITALS: BP 149/69; PULSE 75; RESP 18; TEMP 36.2; O2SAT 95
[2023-08-22] MEDS: 0.9 % Sodium Chloride Flush 3 ML SYRINGE IVFLUSH (07:28)
[2023-08-22] MEDS: amLODIPine Besylate 5 MG TABLET PO (07:29)
[2023-08-22] MEDS: Calcium + Vitamin D 250 MG TABLET PO (07:29)
[2023-08-22] MEDS: Aspirin Enteric Coated 81 MG TABLET.DR PO (07:29)
[2023-08-22] MEDS: hydroCHLOROthiazide 12.5 MG TABLET PO (07:29)
--- NOTE | 2023-08-22 09:15 | MHC.CLN ---
F/U DIET=REGULAR. ENSURE BID (700 KCALS, 40 G PROTEIN) TO PROMOTE WOUND HEALING AND PROVIDE ADDITIONAL KCALS. STAGE II PRESSURE INJURY TO LEFT BUTTOCK. QUALIFIES SEVERE MALNUTRITION IN THE CONTEXT OF ACUTE ILLNESS. CONTINUES TO EAT WELL WITH MOST MEALS 75-100%. FOLLOW FOR INTAKE AND WOUND HEALING.
[2023-08-22] MEDS: levoFLOXacin/D5W 500 MG/100 ML PIGGYBACK 100 MG IV (10:18)
--- NOTE | 2023-08-22 12:54 | MHC.CM.PN ---
IMM 08/22/23 Patient is discharged to [facility] this afternoon. [facility] was the only preference for STR. The referral was sent. The bed was offered and accepted by the patient and his . He will transport via BLS. His has been notified of the discharge and transport time..
--- NOTE | 2023-08-22 14:12 | P.DS_ITS ---
DS: Providers Provider Date of Service: 08/22/23 Date of admission: 08/18/23 15:13 Primary care physician: Unknown Physician Consults: 08/18/23 15:20 Consult to Wound Care Routine Reason for consultation: Sacral and left buttock wounds 08/19/23 11:40 Consult to Wound Care Routine Reason for consultation: bilat lower extremity wounds, wounds to left buttocks and coccyx Has provider been notified: Yes DS: Diagnosis Discharge Diagnosis (1) Acute UTI: Status: Acute (2) Weakness: Status: Acute DS: Summary Hospital Course Hospital Course: Date of Service: 08/18/23 Attending physician on admission: Antelmo Zepeda Chief Complaint: Fall at home Pt is an 88-year-old male with a PMH significant for?HTN, HLD, hx of NSTEMI, TIA, and strangulated inguinal hernia s/p bowel resection who presents to the ED from home for evaluation of worsening generalized weakness, fatigue, and malaise. ?Patient himself does not know why he presented to the emergency room, so HPI taken from via phone call. states that patient has been declining the past few months ever since he developed an ulcer on his left upper leg. Since then has been having difficulty walking. Uses walker at baseline at home. herself is unable to walk and bed-bound baseline. states last night she woke up at 01:00 and noticed the lytes were still on. sleeps in a recliner, and she noted that he had slid off the front of his seat and was sitting on a stool in front of the chair. He seemed confused and unable to get from a sitting position. then called EMS to bring him to the hospital for further evaluation. mentions they have [facility] to look after patient's leg ulcer, but visits have apparently been sporadic. Reports they also have assistance with someone who comes in to cook breakfast and dinner. Patient himself denies any acute complaints. Says he feels ?all right? and overall ?fine?. Primary denies chest pain/pressure, palpitations. Denies musculoskeletal pain. No fever, chills, nausea, vomiting, abdominal pain. No shortness of breath. In the ED pt with elevated temperature up to 100.5, elevated heart rate up to 91, and was hypertensive at 168/78. Labs were significant for slightly elevated BNP of 207, otherwise grossly unremarkable and at baseline for patient. No leukocytosis. Stable normocytic anemia of 9.3/29.2. No electrolyte abnormalities. Kidney function around baseline. Hepatic function baseline. CPK 110. Troponin WNL. CXR showed no acute cardiopulmonary disease. CT of abdomen and pelvis found progression of retractile soft tissue mass with dystrophic calcification within the mesentery, and left inguinal hernia without evidence of acute complication. CT of head showed extensive chronic with no acute findings. CT of cervical spine found no acute osseous abnormalities.EKG reported poor data quality but demonstrated possible accelerated junctional rhythm with occasional with PVCs and inverted T-waves in V4 and V5. Pt was treated with acetaminophen and ceftriaxone. Pt will be admitted to the hospital for treatment and further evaluation of generalized weakness and failure to thrive in the setting of acute UTI. Hospital course: 88-year-old male with a PMH significant for?HTN, HLD, hx of NSTEMI, TIA, and strangulated inguinal hernia s/p bowel resection who presents to the ED from home for evaluation of worsening generalized weakness, fatigue, and malaise. Pt will be admitted to the hospital for treatment and further evaluation of generalized weakness and failure to thrive in the setting of acute UTI. Acute UTI patient initially treated with IV ceftriaxone urine culture grew Proteus penneri resistant to ceftriaxone, therefore antibiotic switched to IV L evaquin, patient remains afebrile, normal WBC blood cultures x2 are negative will discharge patient on 4 more days of by mouth Levaquin. Stage II decubitus ulcer of left buttock and sacrum continue daily dressing and positioning change q.2 hours. Generalized weakness/failure to thrive patient slid to the floor while sleeping in recliner and was unable to get up In the setting of above,Patient sleeping in recliner, slid to floor and unable to get up, all imaging studies including chest x-ray, cervical spine CT, abdominal and pelvic CT and head CT were unremarkable Patient is being transferred to short-term rehab to maximize function and safety at home. HTN Continue amlodipine 5 mg and hydrochlorothiazide, and follow BP. HLD/CAD Continue aspirin and Lipitor 80 mg Left shoulder pain likely osteoarthritis improved recommend to continue Tylenol. Time Attestation Discharge Coordination Time (in mins): 36 Quality: Safe Use of Opioids Does Pt have an Active Cancer Diagnosis on the Problem List?: No Quality: Stroke Does the patient have a stroke diagnosis?: No Physical Exam Vital Signs: Vital Signs: Last Vital Signs Temp 97.2 F 08/22/23 07:14 Pulse 75 08/22/23 07:14 Resp 18 08/22/23 07:14 BP 149/69 H 08/22/23 07:14 Pulse Ox 95 08/22/23 07:14 O2 Del Method Room Air 08/22/23 07:14 BMI result Body Mass Index 20.5 Const: Other: General resting comfortably in no acute distress. Neck supple, no JVD. CVS regular rate rhythm, Respiratory lungs clear to auscultation, no respiratory distress, no wheeze, no rhonchi. Gastrointestinal abdomen soft, non tender, bowel sounds audible, no guarding , no rigidity. Extremities dry scaly skin Stage II pressure ulcer to coccyx and left buttock Neuro non focal Psych appropriate affect DS: Data Data Completed and Pending Labs on day of discharge: Preliminary micro results at discharge 08/18/23 10:25 Blood Culture - Preliminary Blood - Venous No growth after 48 hours. 08/18/23 09:54 Blood Culture - Preliminary Blood - Venous No growth after 48 hours. Discharge Plan Discharge Anticipated Discharge Date/Time: 08/22/23 14:04 Patient Disposition: er SNF Discharge Diagnosis: Acute UTI Generalized weakness Failure to thrive Referrals: Physician,Unknown J [Primary Care Provider] - 1 Week Discharge Medications: New amlodipine 5 mg Tablet 5 mg PO DAILY Qty: 30 0RF Protocol: Hold for SBP< HOLD for SBP < : 90 levofloxacin 500 mg Tablet 500 mg PO Q24H Qty: 4 0RF Continued atorvastatin 80 mg Tablet 80 mg PO BEDTIME vitamin E 268 mg (400 unit) Capsule 268 mg PO DAILY hydrochlorothiazide 12.5 mg Tablet 12.5 mg PO DAILY calcium carbonate-vitamin D3 [Calcium 500 + D] 500 mg-10 mcg (400 unit) Tablet 0.5 tab PO DAILY aspirin 81 mg Tablet,Delayed Release (Dr/Ec) 81 mg PO DAILY Qty: 0 0RF Discharge Orders: Discharge Order (Routine); Ordered 08/22/23 Ordered By: Lexie Lujan Diet: Advance to usual diet Activity on Discharge: As tolerated Stand Alone Forms: Patient Portal Discharge page Care Plan Goals: Acute UTI take Levaquin 500 mg daily for 4 more days Failure to thrive/ Take protein shakes twice daily Stage II pressure injury left buttock and sacrum Apply triad and foam dressings to allow for moist wound healing to the coccyx and buttock, frequent position change, high-protein diet Bilateral legs apply Xeroform for moist wound healing Health Concerns: Hypertension stable Hyperlipidemia Plan of Treatment: Outpatient follow-up with primary care physician Assessment: As above
--- NOTE | 2023-08-22 14:49 | HO.WOUND ---
Wound Consult: Initial 88yr old M? admitted to [facility] on 08/17 - See progress notes and H&P for detailed history.? Wound consult placed for Buttocks, Coccyx and Bilateral Leg wounds POA.? Patient agreeable to assessment and photo documentation.? The patient reports the injury to his buttocks is secondary to falling at home and landing on a stool on his buttocks until EMS arrived. The left buttocks is an atypical location for a pressure injury however given the fall and position he maintained for several hours this is likely the cause of injury. Bilateral Legs have evidence of recent significant swelling - swelling is currently resolved but evidence remains. Both legs were noted for thick scaling lifting dry epidermal layers. These were easily removed with cleansing and revealed left gilmore partial thickness tissue loss. Clean wound bed noted. Bilateral Lower Legs Etiology: Venous Dermatitis ? Wound Bed: thick scaling lifting dry epidermal layers Drainage / Odor: Mild odor noted - none after cleansing thoroughly Edges: ? Irregular and attached Kat wound: evidence of recent significant swelling - swelling is currently resolved but evidence remains? No Induration, Fluctuance or Warmth noted Pain: Mild discomfort reports on Left gilmore Goals of Treatment: ? Moist wound healing Left Buttocks and Coccyx Etiology: Coccyx Stage 2 Pressure Injury ??Present on Admission Measurements: see charting for detailed measurements Wound Bed: pink moist wound bed - partial thickness tissue loss Drainage / Odor: Scant Edges: ? Irregular Kat wound: ? Light purple nonblanchable tissue - No Induration, Fluctuance or Warmth noted Pain: mild tenderness reports Goals of Treatment: ? Moist wound healing and to protect from friction and moisture with Triad and Foam Etiology: Left Buttock - Deep Tissue Injury in evolution ?Present on Admission Measurements: see charting for detailed measurements Wound Bed: Full thickness tissue loss - moist yellow, pink maroon purple wound bed Drainage / Odor: moderate yellow drainage noted -- no odor Edges: ? Irregular Kat wound: ?Intact tissue - No Induration, Fluctuance or Warmth noted Pain: mild tenderness reports Goals of Treatment: ? Moist wound healing and to protect from friction and moisture with Triad and Foam Recommendations: 1. Turn and Reposition every 2 hours and as needed for patient comfort.? Use pillows or wedges to support off loading positions. Waffle cushion in place 2. Off Load all bony prominences with use of pillows and heel boots if needed.? Apply Preventative foams where needed. ? 3. Monitor for incontinence and moisture control, use barrier creams when needed for prevention and treatment. 4. Provide adequate and supplemental nutrition.? 5. Order or Continue low air loss mattress. 6. Bilateral Lower Legs - Cleanse with PH Balanced Donny Foster, apply vaseline to lower legs cover open wounds with xeroform, cover with ABD pad, & Gauzewrap. Change Daily. 7. Coccyx and Left Buttock - Off Load Pressure - Ensure Waffle cushion is in use. Cleanse with PH balance spray or wipes, pat dry. ?Apply thin layer of Triad to wound bed. Do not remove all of paste between applications as this may cause further skin damage.? Cover with foam dressing to aid in off loading and protection from friction. Re-consult wound care Nurse for wound deterioration or wound changes.
== END 2023-08-22 15:56 | disposition skilled nursing facility (03) | DRG 690 ==
LOC: HO.ED 10:58 → HO.EDOVER 15:27 → HO.S3 08-19 07:32
PROVIDERS: Physician Assistant; Admitting Provider Student in an Organized Health Care Education/Training Program; Emergency Provider Emergency Medicine; Referring Provider Internal Medicine; Visit Provider Hospitalist
DX: N39.0 Urinary tract infection, site not specified (principal); Z16.19 Resistance to other specified beta lactam antibiotics; L89.322 Pressure ulcer of left buttock, stage 2; B96.4 Proteus (mirabilis) (morganii) as the cause of diseases classified elsewhere; M19.012 Primary osteoarthritis, left shoulder; I10 Essential (primary) hypertension; E78.5 Hyperlipidemia, unspecified; I25.10 Atherosclerotic heart disease of native coronary artery without angina pectoris; R62.7 Adult failure to thrive; Z86.73 Personal history of transient ischemic attack (TIA), and cerebral infarction without residual deficits; Z68.20 Body mass index [BMI] 20.0-20.9, adult; I25.2 Old myocardial infarction; Z79.82 Long term (current) use of aspirin; Z79.899 Other long term (current) drug therapy
CPT/HCPCS: 36415; 70450; 71045; 72125; 74176; 80048; 80053; 81001; 82550; 83605; 83735; 83880; 84484; 85025; 85027; 87040; 87086; 87088; 87186; 93005; 97162; 99285; J0696; J1650; J1956

== ENCOUNTER → 2023-08-18 09:22 | Outpatient (BNV) | payer OTHER, SELFPAY | PROVIDERS: Admitting Provider Student in an Organized Health Care Education/Training Program; Emergency Provider Emergency Medicine; Visit Provider Internal Medicine Cardiovascular Disease | DX: I49.3 Ventricular premature depolarization (principal) | CPT/HCPCS: 93010 ==

== ENCOUNTER → 2023-08-18 15:13 | Outpatient (BNV) | payer OTHER, SELFPAY | PROVIDERS: Admitting Provider Student in an Organized Health Care Education/Training Program; Emergency Provider Emergency Medicine; Visit Provider Student in an Organized Health Care Education/Training Program | DX: N39.0 Urinary tract infection, site not specified (principal); R53.1 Weakness | CPT/HCPCS: 99223; 99232; 99233; 99239 ==

== ENCOUNTER 2023-08-29 15:12 | Inpatient (IN) | payer OTHER, SELFPAY ==
--- NOTE | ~2023-08-29 | XR_ITS ---
EXAMINATION: XR CHEST CLINICAL INFORMATION: Weakness. COMPARISON: Chest radiograph 08/18/2023 and 12/10/2021. TECHNIQUE: 2 views of the chest were obtained. FINDINGS: Low lung volumes. Mild chronic interstitial thickening. No focal consolidation, pleural effusion or pneumothorax. No evidence to suspect pulmonary edema. Equivocal nodular-like opacity in the left apex overlying the posterior third rib. Normal appearance of the cardiomediastinal silhouette. Chronic right-sided rib fractures. Rigid spine with thoracic spondylosis. No acute osseous findings. XR/XR chest 2V IMPRESSION: 1. Low lung volumes with chronic interstitial thickening. 2. No focal consolidation, pleural effusion or pneumothorax. 3. Equivocal pulmonary nodule in the left apex versus summation artifact. Recommend further evaluation with outpatient CT chest. The report will be called to the ordering clinician by a [place] Radiology Physician Bridge Saw Operator.
--- NOTE | 2023-08-29 15:23 | ED.GENADULT ---
HPI - General Adult General Chief complaint: Syncope Stated complaint: dizzy,nausea Time Seen by Provider: 08/29/23 15:23 History of Present Illness HPI narrative: 88 y/o M patient; PMH NSTEMI, anemia, TIA, HTN, HLD, strangulated inguinal hernia s/p bowel resection; presents from home with report of lightheadedness and nausea. The patient was last seen in this ED on 08/18/2023 for weakness and fatigue. He was found to have a UTI which grew Proteus and he was treated with Levaquin for 5 days with discharge to short term rehab. Per the rehab, the patient was doing PT today when he felt lightheaded so was lowered to the ground. Staff denied headstrike, LOC, recent trauma. Patient himself on arrival to the ED denies any complaints. Related Data Home Medications Medication Instructions Recorded Confirmed atorvastatin 80 mg tablet 80 mg PO BEDTIME 08/18/23 08/18/23 calcium carbonate 500 mg-vitamin 0.5 tab PO DAILY 08/18/23 08/18/23 D3 10 mcg (400 unit) tablet (Calcium 500 + D) hydrochlorothiazide 12.5 mg tablet 12.5 mg PO DAILY 08/18/23 08/18/23 vitamin E 268 mg (400 unit) capsule 268 mg PO DAILY 08/18/23 08/18/23 Previous Rx's Medication Instructions Recorded aspirin 81 mg tablet,delayed 81 mg PO DAILY #0 tabs 06/03/23 release amlodipine 5 mg tablet 5 mg PO DAILY #30 tabs 08/22/23 levofloxacin 500 mg tablet 500 mg PO Q24H #4 tabs 08/22/23 Allergies Allergy/AdvReac Type Severity Reaction Status Date / Time No Known Allergies Allergy Unverified 06/08/21 11:28 [No Known Allergies*] Review of Systems Review of Systems: Yes all other systems are reviewed and are negative [facility] Past Medical History Attestation statement: The following information was validated with the patient. Source: old records reviewed Medical History Abnormal CT scan Inguinal hernia with strangulation TIA (transient ischemic attack) Hypercholesterolemia Hypertension Surgical History History of right inguinal hernia repair Social History Social History Household Members: Spouse Housing: Apartment Do you presently have visiting nurse or other home services: Yes (for left leg dressing changes) Unable to assess alcohol history related to: Unknown Alcohol intake: former Patient Tobacco Use Status: Never used Tobacco Smoked in Last 30 Days: No e-Cigarette/Vaping Use: Never Used Second Hand Smoke Exposure: No Use of substances other than those prescribed or required for medical reasons: No Advance Directives: Yes Advance Directives on File: Yes Advance Directives Date on File: 09/17/22 service: Yes Current occupational status: retired Physical Exam ED Vital Signs: Vital Signs - 24 hr 08/29/23 16:14 08/29/23 16:28 08/29/23 19:32 Temperature 98.8 F 98.2 F Pulse Rate 88 78 Respiratory Rate 16 16 Blood Pressure 134/55 L 135/64 Pulse Oximetry 95 98 97 Oxygen Delivery Method Room Air Room Air Room Air BMI result Body Mass Index 23.4 Patient is afebrile and hemodynamically stable Const General: cooperative HENMT Head: Yes atraumatic Eyes General: appearance normal, both eyes and all related structures Neck Neck: Yes normal visual inspection, Yes full ROM, Yes supple and No tender Chest Chest palpation & inspection: normal inspection of the chest and normal palpation of entire chest wall Resp Effort & Inspection: normal respiratory effort, able to speak in complete sentences, no cough and no respiratory distress Auscultation: clear to auscultation bilaterally Cardio Palpation: normal PMI Rate: regular rate Peripheral pulses: Peripheral pulses 2+ throughout GI Inspection: Yes normal to inspection, No Abdominal wall edema and No distended Palpation (GI): Soft to palpation, not firm, nontender, no guarding and not rigid Auscultation: normal bowel sounds Back/Spine/Pelvis Other: Left buttock ulceration with dressing in place Skin Other: Bilateral lower anterior gilmore abrasions with dressings from 08/[address] Course Course Course Narrative: Patient is afebrile and hemodynamically stable. Will obtain EKG, CXR, and basic labs. Reevaluation(s) Reevaluation #1: Laboratory studies reviewed. Noted leukocytosis 11.2. Baseline anemia 8.6. Mild hyponatremia 134. Cr 1.85 (baseline 0.87). LA 1.3. CXR with possible pulmonary nodule versus artifact - outpatient CT Chest recommended. UA negative for infection. Plan: Admit to hospital for acute kidney injury s/p 2L IVF Condition: Stable Medications Administered Discontinued Medications Generic Name Dose Route Start Last Admin Trade Name Freq PRN Reason Stop Dose Admin Sodium Chloride 1,000 mls @ 999 mls/hr 08/29/23 17:15 08/29/23 17:34 Ns IV 08/29/23 18:15 999 mls/hr .Q1H1M FERNANDO Administration Medical Decision Making Lab Data 08/29/23 16:28 08/29/23 16:28 Labs: Lab Results 08/29/23 08/29/23 08/29/23 Range/Units 16:27 16:28 20:03 WBC 11.2 H (4.8-10.8) X10*3/uL RBC 3.09 L (4.60-5.80) X10*6/uL Hgb 8.6 L (14.0-18.0) g/dl Hct 26.7 L (42.0-52.0) % MCV 86.4 (80.0-98.0) fL MCH 27.8 (27.0-33.0) pg MCHC 32.2 (31.0-36.0) g/dl RDW 15.4 (11.0-16.0) % Plt Count 391 D (160-400) X10*3/uL MPV 9.2 L (9.4-12.4) fL Immature Gran % (Auto) 1.0 H (0.0-0.4) % Neut % (Auto) 71.3 (45-73) % Lymph % (Auto) 12.9 L (20-40) % [place] % (Auto) 10.4 (2-11) % Eos % (Auto) 3.9 (0-4) % Baso % (Auto) 0.5 (0-2) % Lymph # (Auto) 1.4 (1.2-4.9) X10*3/uL [place] # (Auto) 1.2 (0.1-1.2) X10*3/uL Eos # (Auto) 0.4 (0.0-0.4) X10*3/uL Baso # (Auto) 0.1 (0.0-0.2) X10*3/uL Abs Immat Gran (auto) 0.11 H (0.00-0.03) X10*3/uL Absolute Neuts (auto) 8.0 (2.0-8.3) x10*3/uL Absolute Nucleated RBC 0.000 (0.0-0.012) X10*3/uL Nucleated RBC % (auto) 0.0 (0.0-0.2) /100WBC Sodium 134 L (135-145) mmol/L Potassium 4.7 D (3.3-5.1) mmol/L Chloride 101 (96-108) mmol/L Carbon Dioxide 26 (22-29) mmol/L Anion Gap 12 (12-20) BUN 38 H (9-16) mg/dL Creatinine 1.85 H (0.5-1.4) mg/dL Estim Creat Clear Calc 25.3 Estimated GFR 35 Random Glucose 126 H (60-115) mg/dL Lactic Acid 1.3 (0.5-2.0) mmol/L Calcium 9.5 D (8.4-10.2) mg/dL Total Bilirubin 0.3 (0.0-1.0) mg/dL Direct Bilirubin 0.2 (0.0-0.5) mg/dL AST 29 (5-37) U/L ALT 22 (0-40) U/L Alkaline Phosphatase 93 (39-117) U/L Troponin I High Sens 9.0 (<3.5-35.0) ng/L Total Protein 7.2 (6.5-8.0) g/dL Albumin 3.5 (3.5-5.0) g/dL Lipase 107 H (8-78) U/L Urine Color Yellow Urine Appearance Clear Urine pH 7.5 (5.0-9.0) Ur Specific [place] 1.015 (1.005-1.025) Urine Protein Negative (Neg-Trace) mg/dL Urine Glucose (UA) Negative (Negative) mg/dL Urine Ketones Negative (Negative) mg/dL Urine Blood Negative (Negative) Urine Nitrite Negative (Negative) Ur Leukocyte Esterase Negative (Negative) Influenza Type A (PCR) NEGATIVE (Negative) Influenza Type B (PCR) NEGATIVE (Negative) RSV RNA Qual (PCR) NEGATIVE (Negative) SARS-CoV-2 RNA (RT-PCR) NEGATIVE (Negative) Radiology Impression Discussion of test interpretation with radiology: I have reviewed the radiologist's reading. Radiologist Impression: EXAMINATION: XR CHEST CLINICAL INFORMATION: Weakness. COMPARISON: Chest radiograph 08/18/2023 and 12/10/2021. TECHNIQUE: 2 views of the chest were obtained. FINDINGS: Low lung volumes. Mild chronic interstitial thickening. No focal consolidation, pleural effusion or pneumothorax. No evidence to suspect pulmonary edema. Equivocal nodular-like opacity in the left apex overlying the posterior third rib. Normal appearance of the cardiomediastinal silhouette. Chronic right-sided rib fractures. Rigid spine with thoracic spondylosis. No acute osseous findings. XR/XR chest 2V IMPRESSION: 1. Low lung volumes with chronic interstitial thickening. 2. No focal consolidation, pleural effusion or pneumothorax. 3. Equivocal pulmonary nodule in the left apex versus summation artifact. Recommend further evaluation with outpatient CT chest. Discharge Plan Discharge Clinical Impression: MASSIEL (acute kidney injury) Patient Disposition: Admitted As Inpatient
[2023-08-29 15:27] VITALS: BP 135/72; PULSE 85; O2SAT 97
--- NOTE | 2023-08-29 15:28 | ECG_ITS ---
Test Reason : WEAKNESS Blood Pressure : / mmHG Vent. Rate : 076 BPM Atrial Rate : 076 BPM P-R Int : 116 ms QRS Dur : 084 ms QT Int : 376 ms P-R-T Axes : 035 054 083 degrees QTc Int : 423 ms Artifact in tracing Normal sinus rhythm Nonspecific T wave abnormality Borderline ECG When compared with ECG of 18-AUG-2023 09:28, Premature ventricular complexes are no longer Present T wave inversion no longer evident in Anterior leads Referred By: Nena Vega Electronically Signed By:HUMBERTO WESTFALL
[2023-08-29 16:14] VITALS: BP 134/55; PULSE 88; RESP 16; TEMP 37.1; O2SAT 95; BMI 23.4
[2023-08-29 16:28] VITALS: O2SAT 98
[2023-08-29 16:33] LABS: MANUAL DIFF FLAG NO
[2023-08-29 16:34] LABS: Basophils Absolute Auto 0.1 X10*3/uL (0.0-0.2); Basophils Percent Auto 0.5 % (0-2); Eosinophils Absolute Auto 0.4 X10*3/uL (0.0-0.4); Eosinophils Percent Auto 3.9 % (0-4); Hematocrit 26.7 % (42.0-52.0); Hemoglobin 8.6 g/dl (14.0-18.0); Imm Gran Abs Auto 0.11 X10*3/uL (0.00-0.03); Lymphocytes Absolute Auto 1.4 X10*3/uL (1.2-4.9); Lymphocytes Percent Auto 12.9 % (20-40); Mean Corpuscular HGB Conc 32.2 g/dl (31.0-36.0); Mean Corpuscular Hemoglobin 27.8 pg (27.0-33.0); Mean Corpuscular Volume 86.4 fL (80.0-98.0); Mean Platelet Volume 9.2 fL (9.4-12.4); Monocytes Absolute Auto 1.2 X10*3/uL (0.1-1.2); Monocytes Percent Auto 10.4 % (2-11); Neutrophils Percent Auto 71.3 % (45-73); Platelet Count 391 X10*3/uL (160-400); Red Blood Count 3.09 X10*6/uL (4.60-5.80); Red Cell Distribution Width 15.4 % (11.0-16.0); White Blood Count 11.2 X10*3/uL (4.8-10.8)
[2023-08-29 16:45] LABS: Lactic Acid 1.3 mmol/L (0.5-2.0)
[2023-08-29 16:51] LABS: Alanine Aminotransferase 22 U/L (0-40); Albumin Level 3.5 g/dL (3.5-5.0); Alkaline Phosphatase 93 U/L (39-117); Anion Gap 12 (12-20); Aspartate Amino Transferase 29 U/L (5-37); Bilirubin Direct 0.2 mg/dL (0.0-0.5); Bilirubin Total 0.3 mg/dL (0.0-1.0); Blood Urea Nitrogen 38 mg/dL (9-16); Calcium 9.5 mg/dL (8.4-10.2); Carbon Dioxide 26 mmol/L (22-29); Chloride 101 mmol/L (96-108); Creatinine Clr Calc Pharmacy 25.3; Estimated Glomerular Filt Rate 35; Glucose Random 126 mg/dL (60-115); Lipase 107 U/L (8-78); Potassium 4.7 mmol/L (3.3-5.1); Sodium 134 mmol/L (135-145); Total Protein 7.2 g/dL (6.5-8.0)
[2023-08-29 17:25] LABS: Influenza A PCR NEGATIVE (Negative); Influenza B PCR NEGATIVE (Negative); Resp Syncy Virus RNA Qual PCR NEGATIVE (Negative); SARS COV2 PCR INHOUSE NEGATIVE (Negative)
[2023-08-29] MEDS: 0.9 % Sodium Chloride 1,000 ML 999 ML IV ×2 (17:34→20:47)
[2023-08-29 19:32] VITALS: BP 135/64; PULSE 78; RESP 16; TEMP 36.8; O2SAT 97
[2023-08-29 20:09] LABS: Appearance Urine Clear; Color Urine Yellow; Glucose Urine UA Negative (Negative); Leukocyte Esterase Urine Negative (Negative); Nitrite Urine Negative (Negative); PH 7.5 (5.0-9.0); Specific Gravity - Urine 1.015 (1.005-1.025); Urine Blood Negative (Negative); Urine Ketones Negative (Negative); Urine Protein Negative (Neg-Trace)
--- NOTE | 2023-08-29 21:28 | PHA.MEDREC ---
Pharmacy Consult ? Medication Reconciliation Pharmacy has completed the medication reconciliation. Confirmed medications with list brought from facility ([facility])
[2023-08-29 21:55] VITALS: BP 167/94; PULSE 83; RESP 14; TEMP 36.7; O2SAT 99
--- NOTE | 2023-08-29 22:03 | PC.NURSE ---
Patient straight cath with immediate urine output of 150 mL of yellow, clear urine. urine specimen sent to lab for processing.
[2023-08-30] VITALS (8 sets, daily range): BP systolic 124–146; BP diastolic 53–68; PULSE 71–88; RESP 13–18; TEMP 36.2–36.9; O2SAT 93–98; BMI 23.6
--- NOTE | 2023-08-30 00:37 | P.HPHOSP_ITS ---
History of Present Illness Date of Service: 08/29/23 Attending physician on admission: Fidel Frias Chief Complaint: Weakness Yeison Williamson is 88 years old man with past medical history significant for essential hypertension on hydrochlorothiazide, TIA, CAD and hypercholesterolemia was brought to the emergency department due to lightheadedness and nausea. He denied any headache, chest pain, shortness on breath, vomiting, abdominal pain or diarrhea. The patient was recently evaluated in the emergency department for weakness and fatigue and was found to have UTI for which he received a course of Levaquin. He was discharged to rehab and we will perform a rehab fell lightheaded. In the ED, he was found to have stable vital signs. Last blood pressure is 167/94. Blood workup showed mild leukocytosis, 11.2. Hemoglobin is 8.6 which is around baseline. Creatinine is 1.85 (it was 0.87 10 days ago). There is no lactic acidosis. LFTs are normal. Troponin is negative. CXR showed low lung volumes with chronic interstitial thickenin, no consolidation, no pleural effusions or pneumothorax. It reported equivocal pulmonary nodule in the left apex versus summation artifact. Urinalysis showed no evidence of urinary tract infection. ED tx: NS 2 L bolus Review of Systems 2 Review of Systems: Yes Unobtainable due to mental condition [facility] Medical History (Updated 08/30/23 @ 01:02 by Fidel Frias MD) Abnormal CT scan Inguinal hernia with strangulation TIA (transient ischemic attack) Hypercholesterolemia Hypertension Surgical History History of right inguinal hernia repair Social History Household Members: Spouse Housing: Apartment Do you presently have visiting nurse or other home services: Yes (for left leg dressing changes) Unable to assess alcohol history related to: Unknown Alcohol intake: former Patient Tobacco Use Status: Never used Tobacco Smoked in Last 30 Days: No e-Cigarette/Vaping Use: Never Used Second Hand Smoke Exposure: No Use of substances other than those prescribed or required for medical reasons: No Advance Directives: Yes Advance Directives on File: Yes Advance Directives Date on File: 09/17/22 service: Yes Current occupational status: retired Meds Allergies Allergy/AdvReac Type Severity Reaction Status Date / Time No Known Allergies Allergy Unverified 06/08/21 11:28 [No Known Allergies*] Active Medications: Current Medications Acetaminophen (Acetaminophen 325 Mg Tablet) 650 mg PO Q6H PRN PRN Reason: Pain, Mild (Pain Scale 1-3) Heparin Sodium (Porcine) (Heparin Sodium,Porcine 5,000 Unit/Ml Vial) 5,000 unit SUBCUT Q12H [facility] Sodium Chloride (Ns) 1,000 mls @ 100 mls/hr IVCONT .Q10H [facility] Last Admin: 08/29/23 22:40 Dose: Not Given Sodium Chloride (0.9 % Sodium Chloride Flush 3 Ml Syringe) 3 ml IVFLUSH QSHIFT [facility] Home Medications Medication Instructions Recorded Confirmed Last Taken Type atorvastatin 80 mg tablet 80 mg PO BEDTIME 08/18/23 08/29/23 Unknown History hydrochlorothiazide 12.5 mg tablet 12.5 mg PO DAILY 08/18/23 08/29/23 Unknown History vitamin E 268 mg (400 unit) capsule 268 mg PO DAILY 08/18/23 08/29/23 Unknown History Saccharomyces boulardii 10 billion 10,000 mmu cells PO BID 08/29/23 08/29/23 Unknown History cell capsule acetaminophen 325 mg tablet 650 mg PO Q4H PRN Fever Or Pain 08/29/23 08/29/23 Unknown History bisacodyl 10 mg rectal suppository 10 mg NE DAILY PRN Constipation 08/29/23 08/29/23 Unknown History calcium carbonate 500 mg-vitamin 0.5 tab PO DAILY 08/29/23 08/29/23 Unknown History D3 10 mcg (400 unit) tablet (Calcium 500 + D) magnesium hydroxide 2,400 mg/10 mL 30 ml PO DAILY PRN Constipation 08/29/23 08/29/23 Unknown History oral suspension (Milk Of Magnesia Concentrated) melatonin 3 mg tablet 6 mg PO BEDTIME PRN Sleep 08/29/23 08/29/23 Unknown History multivitamin 1 tab PO DAILY 08/29/23 08/29/23 Unknown History sodium phosphates 19 gram-7 118 ml NE DAILY PRN Constipation 08/29/23 08/29/23 Unknown History gram/118 mL enema (Fleet Enema) Physical Exam 2 Vital Signs and Narrative: Vital Signs: Last Vital Signs Temp 98.1 F 08/29/23 21:55 Pulse 83 08/29/23 21:55 Resp 14 08/29/23 21:55 BP 167/94 H 08/29/23 21:55 Pulse Ox 99 08/29/23 21:55 O2 Del Method Room Air 08/29/23 21:55 BMI result Body Mass Index 23.4 Constitutional - Awake and Alert, No apparent distress. Looks chronically ill. HEENT - Pupils equally round, EOMI. Dry oral mucosa. Heart - regular rate and rhythm. No murmur. Lungs - Normal lung expansion, Normal respiratory effort, No respiratory distress, CTA bilaterally Abdomen - NT / ND; +BS; No rebound or guarding Extremities - no calf tenderness bilaterally, no swelling Musculoskeletal - Normal inspection, normal ROM Skin - Warm/Dry Neurological - Alert & oriented x3. No focal weakness grossly noted. Normal speech. Psychological - Appropriate affect Results Labs 08/29/23 16:28 08/29/23 16:28 Labs: Laboratory Results - last 24 hr 08/29/23 08/29/23 08/29/23 16:27 16:28 20:03 MCV 86.4 MCH 27.8 MCHC 32.2 RDW 15.4 Plt Count 391 D MPV 9.2 L Immature Gran % (Auto) 1.0 H Neut % (Auto) 71.3 Lymph % (Auto) 12.9 L [place] % (Auto) 10.4 Eos % (Auto) 3.9 Baso % (Auto) 0.5 Lymph # (Auto) 1.4 [place] # (Auto) 1.2 Eos # (Auto) 0.4 Baso # (Auto) 0.1 Abs Immat Gran (auto) 0.11 H Absolute Neuts (auto) 8.0 Absolute Nucleated RBC 0.000 Nucleated RBC % (auto) 0.0 Anion Gap 12 Estim Creat Clear Calc 25.3 Estimated GFR 35 Random Glucose 126 H Lactic Acid 1.3 Calcium 9.5 D Total Bilirubin 0.3 Direct Bilirubin 0.2 AST 29 ALT 22 Alkaline Phosphatase 93 Troponin I High Sens 9.0 Total Protein 7.2 Albumin 3.5 Lipase 107 H Urine Color Yellow Urine Appearance Clear Urine pH 7.5 Ur Specific [place] 1.015 Urine Protein Negative Urine Glucose (UA) Negative Urine Ketones Negative Urine Blood Negative Urine Nitrite Negative Ur Leukocyte Esterase Negative Influenza Type A (PCR) NEGATIVE Influenza Type B (PCR) NEGATIVE RSV RNA Qual (PCR) NEGATIVE SARS-CoV-2 RNA (RT-PCR) NEGATIVE Imaging Radiologist's Impressions: Impressions Chest X-Ray 08/29/23 15:54 IMPRESSION: 1. Low lung volumes with chronic interstitial thickening. 2. No focal consolidation, pleural effusion or pneumothorax. 3. Equivocal pulmonary nodule in the left apex versus summation artifact. Recommend further evaluation with outpatient CT chest. The report will be called to the ordering clinician by a [place] [facility] Physician [place] [employer] [place]. Assessment and Plan (1) MASSIEL (acute kidney injury): Status: Acute (2) Weakness: Status: Acute (3) Hypercholesterolemia: Status: Acute (4) Hypertension: Qualifiers: Hypertension type: primary hypertension Qualified Code(s): I10 - Essential (primary) hypertension Status: Acute Plan Yeison Williamson is 88 years old man admitted with: * Acute kidney injury likely multifactorial: Recent use of Levaquin + hydrochlorothiazide use. Admit to hospitalist service. Hold Levaquin and hydrochlorothiazide. Orthostatic vital signs with every shift. Continue IV fluids. Continue to monitor renal function. Avoid nephrotoxic agents. * Essential hypertension. Continue amlodipine. * Hyperlipidemia. Continue statin. * History of Coronary artery disease and TIA. Continue aspirin and atorvastatin. * Equivocal pulmonary nodule in the left apex versus summation artifact on CXR. Further evaluation with outpatient CT chest recommended. DVT prophylaxis: Heparin subcut Code status: Full Patient will need hospitalization for at least 2 midnight for acute kidney injury treatment with IV fluids and close monitoring of renal function. Quality Stroke Does the patient have a stroke diagnosis?: No VTE Prior VTE?: No VTE Risk Level:: Medical - moderate - high VTE Device Contraindication: Treatment Not Indicated VTE Drug Contraindication: N/A - Med Ordered
--- NOTE | 2023-08-30 03:37 | PC.NURSE ---
[place] catheter applied to promote comfort and prevent skin breakdown.
[2023-08-30 06:06] LABS: MANUAL DIFF FLAG NO
[2023-08-30 06:10] LABS: Basophils Absolute Auto 0.1 X10*3/uL (0.0-0.2); Basophils Percent Auto 0.7 % (0-2); Eosinophils Absolute Auto 0.6 X10*3/uL (0.0-0.4); Eosinophils Percent Auto 5.3 % (0-4); Hemoglobin 8.4 g/dl (14.0-18.0); Imm Gran Abs Auto 0.06 X10*3/uL (0.00-0.03); Imm Gran Pct Auto 0.6 % (0.0-0.4); Lymphocytes Absolute Auto 1.9 X10*3/uL (1.2-4.9); Lymphocytes Percent Auto 17.4 % (20-40); Mean Corpuscular HGB Conc 31.1 g/dl (31.0-36.0); Mean Corpuscular Volume 86.8 fL (80.0-98.0); Mean Platelet Volume 9.5 fL (9.4-12.4); Monocytes Absolute Auto 1.1 X10*3/uL (0.1-1.2); Monocytes Percent Auto 10.3 % (2-11); Neutrophils Percent Auto 65.7 % (45-73); Platelet Count 378 X10*3/uL (160-400); Red Blood Count 3.11 X10*6/uL (4.60-5.80); Red Cell Distribution Width 15.4 % (11.0-16.0); White Blood Count 10.6 X10*3/uL (4.8-10.8)
[2023-08-30 06:31] LABS: Alanine Aminotransferase 18 U/L (0-40); Albumin Level 3.2 g/dL (3.5-5.0); Alkaline Phosphatase 86 U/L (39-117); Anion Gap 11 (12-20); Aspartate Amino Transferase 25 U/L (5-37); Bilirubin Total 0.4 mg/dL (0.0-1.0); Blood Urea Nitrogen 27 mg/dL (9-16); Calcium 9.1 mg/dL (8.4-10.2); Carbon Dioxide 23 mmol/L (22-29); Chloride 105 mmol/L (96-108); Creatinine Clr Calc Pharmacy 41.1; Estimated Glomerular Filt Rate > 60; Glucose Random 90 mg/dL (60-115); Potassium 4.5 mmol/L (3.3-5.1); Sodium 134 mmol/L (135-145); Total Protein 6.9 g/dL (6.5-8.0)
[2023-08-30] MEDS: 0.9 % Sodium Chloride 1,000 ML 100 ML IVCONT ×2 (08:08→17:15)
[2023-08-30] MEDS: 0.9 % Sodium Chloride Flush 3 ML SYRINGE IVFLUSH ×2 (08:09)
--- NOTE | 2023-08-30 08:15 | PC.NURSE ---
assumed care of pt at 0700, pt alert sitting in bed eating breakfast, oriented x 4, vss, reporting mild abd discomfort, NS running @ 100ml/hr, 1400ml pale yellow urine emptied from condom cath bag. resting quietly, denies any needs at this time. pt pending bed assignment.
[2023-08-30] MEDS: Multivitamin TABLET 1 TAB PO (10:06)
[2023-08-30] MEDS: amLODIPine Besylate 5 MG TABLET PO (10:07)
[2023-08-30] MEDS: Heparin Sodium,Porcine 5,000 UNIT/ML VIAL 5000 UNIT SUBCUT ×2 (10:07→22:22)
[2023-08-30] MEDS: Calcium + Vitamin D 250 MG TABLET PO (10:07)
[2023-08-30] MEDS: Aspirin Enteric Coated 81 MG TABLET.DR PO (10:07)
--- NOTE | 2023-08-30 14:11 | MHC.CM.PN ---
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
--- NOTE | 2023-08-30 14:17 | PC.NURSE ---
Patient resting quietly on stretcher at this time eating lunch, no other complaints at this time.
--- NOTE | 2023-08-30 17:01 | P.PNIM_ITS ---
Subjective Subjective Date of Service: 08/30/23 Interval History: dizziness ,massiel Review of Systems Patient still feel dizzy, lightheadedness, generalized weak. Denies any chest pain or shortness of breath Physical Exam 2 Vital Signs: Vital Signs: Last Vital Signs Temp 98.0 F 08/30/23 12:54 Pulse 75 08/30/23 16:22 Resp 13 08/30/23 16:22 BP 126/61 08/30/23 16:22 Pulse Ox 97 08/30/23 16:22 O2 Del Method Room Air 08/30/23 16:22 BMI result Body Mass Index 23.4 Appearance: Alert.? Oriented. cvs: rrr, [id number] . res: clear to auscultation ,no rhonchii or wheezing abd: no rebound or guarding ,nt, bs present. ext pulses present , no cyanosis . neuro: nonfocal. Objective Data Active Medications Acetaminophen (Acetaminophen 325 Mg Tablet) 650 mg PO Q6H PRN PRN Reason: Pain, Mild (Pain Scale 1-3) Acetaminophen (Acetaminophen 325 Mg Tablet) 650 mg PO Q4H PRN PRN Reason: Fever Or Pain Amlodipine Besylate (Amlodipine Besylate 5 Mg Tablet) 5 mg PO DAILY [facility]; Protocol Last Admin: 08/30/23 10:07 Dose: 5 mg Documented By: KOJO Aspirin (Aspirin Enteric Coated 81 Mg Tablet.) 81 mg PO DAILY [facility] Last Admin: 08/30/23 10:07 Dose: 81 mg Documented By: KOJO Atorvastatin Calcium (Atorvastatin Calcium 80 Mg Tablet) 80 mg PO BEDTIME [facility] Bisacodyl (Bisacodyl 10 Mg Supp.Rect) 10 mg IA DAILY PRN PRN Reason: Constipation Calcium Carbonate/Cholecalciferol (Calcium + Vitamin D 250 Mg Tablet) 250 mg PO DAILY [facility] Last Admin: 08/30/23 10:07 Dose: 250 mg Documented By: KOJO Heparin Sodium (Porcine) (Heparin Sodium,Porcine 5,000 Unit/Ml Vial) 5,000 unit SUBCUT Q12H [facility] Last Admin: 08/30/23 10:07 Dose: 5,000 unit Documented By: KOJO Sodium Chloride (Ns) 1,000 mls @ 100 mls/hr IVCONT .Q10H [facility] Last Admin: 08/30/23 08:08 Dose: 100 mls/hr Documented By: KOJO Magnesium Hydroxide (Milk Of Magnesia 30 Ml Oral.Susp) 30 ml PO DAILY PRN PRN Reason: Constipation Melatonin (Melatonin 3 Mg Tablet) 6 mg PO BEDTIME PRN PRN Reason: Sleep Multivitamins/Vitamin C (Multivitamin Tablet) 1 tab PO DAILY [facility] Last Admin: 08/30/23 10:06 Dose: 1 tab Documented By: KOJO Sodium Biphosphate/Sodium Phosphate (Sodium Phosphate,[place]-Dibasic 133 Ml Enema) 118 ml IA DAILY PRN PRN Reason: Constipation Sodium Chloride (0.9 % Sodium Chloride Flush 3 Ml Syringe) 3 ml IVFLUSH QSHIFT [facility] Last Admin: 08/30/23 15:21 Dose: Not Given Documented By: KOJO Non-Admin Reason: IV Running Vitamin E (Vitamin E (Dl,Tocopheryl Acet) 180 Mg (400 Unit) Capsule) 180 mg PO DAILY [facility] Last Admin: 08/30/23 10:08 Dose: Not Given Documented By: KOJO Non-Admin Reason: Med Not Available Labs 08/30/23 05:57 08/30/23 05:57 Labs: Laboratory Results - last 24 hr 08/29/23 08/29/23 08/30/23 16:27 20:03 05:57 MCV 86.8 MCH 27.0 MCHC 31.1 RDW 15.4 Plt Count 378 MPV 9.5 Immature Gran % (Auto) 0.6 H Neut % (Auto) 65.7 Lymph % (Auto) 17.4 L [place] % (Auto) 10.3 Eos % (Auto) 5.3 H Baso % (Auto) 0.7 Lymph # (Auto) 1.9 [place] # (Auto) 1.1 Eos # (Auto) 0.6 H Baso # (Auto) 0.1 Abs Immat Gran (auto) 0.06 H Absolute Neuts (auto) 7.0 Absolute Nucleated RBC 0.000 Nucleated RBC % (auto) 0.0 Anion Gap 11 L Estim Creat Clear Calc 41.1 Estimated GFR > 60 Random Glucose 90 Calcium 9.1 Total Bilirubin 0.4 AST 25 ALT 18 Alkaline Phosphatase 86 Total Protein 6.9 Albumin 3.2 L Urine Color Yellow Urine Appearance Clear Urine pH 7.5 Ur Specific [place] 1.015 Urine Protein Negative Urine Glucose (UA) Negative Urine Ketones Negative Urine Blood Negative Urine Nitrite Negative Ur Leukocyte Esterase Negative Influenza Type A (PCR) NEGATIVE Influenza Type B (PCR) NEGATIVE RSV RNA Qual (PCR) NEGATIVE SARS-CoV-2 RNA (RT-PCR) NEGATIVE Assessment and Plan (1) MASSIEL (acute kidney injury): Status: Acute Plan 88 years old man admitted with: Dizziness: Possible multifactorial MASSIEL, dehydration, blood pressure medication Orthostatics negative Hold hydrochlorothiazide Encouraged for p.o. hydration and intake Monitor on tele Acute kidney injury likely multifactorial: Recent use of Levaquin + hydrochlorothiazide use. iv hydration, Avoid nephrotoxic agents. Essential hypertension:blood pressure bodelrine ,hold amlodipine. Hyperlipidemia. Continue statin. History of Coronary artery disease and TIA. Continue aspirin and atorvastatin. Equivocal pulmonary nodule in the left apex versus summation artifact on CXR. Further evaluation with outpatient CT chest recommended. Ongoing hospitalization need: Symptomatic -dizziness/lightheadedness secondary to MASSIEL and dehydration need IV fluid, renal function and electrolyte monitoring as well as tele monitoring. Quality Stroke Does the patient have a stroke diagnosis?: No VTE Prior VTE?: No VTE Risk Level:: Medical - moderate - high VTE Device Contraindication: Treatment Not Indicated VTE Drug Contraindication: N/A - Med Ordered
[2023-08-30] MEDS: Atorvastatin Calcium 80 MG TABLET PO (22:22)
--- NOTE | 2023-08-30 22:50 | HO.SKINPHOTO ---
Location:L Buttock Category:Pressure Stage: II Length: Width: Depth: cm Location:Coccyx Category:Pressure Stage: I Length: Width: Depth: cm Location:L [place] Category: Stage: Length: Width: Depth: cm Location: Category: Stage: Length: Width: Depth: cm Location: Category: Stage: Length: Width: Depth: cm Location: Category: Stage: Length: Width: Depth: cm
[2023-08-31 03:32] VITALS: BP 145/71; PULSE 78; RESP 18; TEMP 36.1; O2SAT 99
[2023-08-31] MEDS: 0.9 % Sodium Chloride 1,000 ML 100 ML IVCONT (04:31)
[2023-08-31 07:54] VITALS: BP 128/75; PULSE 71; RESP 18; TEMP 37; O2SAT 96
[2023-08-31] MEDS: Heparin Sodium,Porcine 5,000 UNIT/ML VIAL 5000 UNIT SUBCUT (08:27)
[2023-08-31] MEDS: 0.9 % Sodium Chloride Flush 3 ML SYRINGE IVFLUSH (08:27)
[2023-08-31] MEDS: Multivitamin TABLET 1 TAB PO (08:27)
[2023-08-31] MEDS: Aspirin Enteric Coated 81 MG TABLET.DR PO (08:27)
[2023-08-31] MEDS: Vitamin E (Dl,Tocopheryl Acet) 180 MG (400 UNIT) CAPSULE PO (08:27)
[2023-08-31] MEDS: Calcium + Vitamin D 250 MG TABLET PO (08:27)
--- NOTE | 2023-08-31 10:35 | PM.DS ---
DS: Providers Provider Date of Service: 08/31/23 Date of admission: 08/29/23 21:14 Date of discharge: 08/31/23 Primary care physician: Regis Wahl MD Consults: 08/30/23 22:58 Consult to Wound Care Routine Reason for consultation: pressure injury to buttocks/coccyx, abrasion to left [place] Has provider been notified: No Attending physician on discharge: Emilia Alexandre Discharging clinician: Emilia Alexandre DS: Diagnosis Discharge Diagnosis (1) MASSIEL (acute kidney injury): Status: Acute DS: Summary Hospital Course Hospital Course: 88 years old man with past medical history significant for essential hypertension on hydrochlorothiazide, TIA, CAD and hypercholesterolemia was brought to the emergency department due to lightheadedness and nausea. He denied any headache, chest pain, shortness on breath, vomiting, abdominal pain or diarrhea. The patient was recently evaluated in the emergency department for weakness and fatigue and was found to have UTI for which he received a course of Levaquin. He was discharged to rehab and we [facility] In the ED, he was found to have stable vital signs. Last blood pressure is 167/94. Blood workup showed mild leukocytosis, 11.2. Hemoglobin is 8.6 which is around baseline. Creatinine is 1.85 (it was 0.87 10 days ago). There is no lactic acidosis. LFTs are normal. Troponin is negative. CXR showed low lung volumes with chronic interstitial thickenin, no consolidation, no pleural effusions or pneumothorax. It reported equivocal pulmonary nodule in the left apex versus summation artifact. Urinalysis showed no evidence of urinary tract infection. Hospital course: Patient was admitted for dizziness sec to Possible multifactorial MASSIEL, dehydration, blood pressure medication: hctz discontinued due to massiel,hyponatremia,also received iv hydration: currently asymptomatic . stop hctz. massiel -thought to be sec to hctz and levaquin -improved with iv hydration and stopping hctz. htn: blood pressure seem fine, amlodipine adjusted to 2.5 mg daily, stop hctz. if needed for blood pressure adjust and uptitarte amlodipine dosing. Equivocal pulmonary nodule in the left apex versus summation artifact on CXR. Further evaluation with outpatient CT chest recommended. plan: stop hctz ,amlodipine adjusted to 2.5 mg daily, stop hctz. if needed for blood pressure adjust and uptitarte amlodipine dosing. [facility] outpatient in 1 week. Equivocal pulmonary nodule in the left apex versus summation artifact on CXR. Further evaluation with outpatient CT chest recommended. Assessment and plan coordination time spent 50 minute. Time Attestation Total time managing care of this patient today: 50 mintues. Discharge Coordination Time (in mins): 50 Quality: Safe Use of Opioids Does Pt have an Active Cancer Diagnosis on the Problem List?: No Quality: Stroke Does the patient have a stroke diagnosis?: No Physical Exam Vital Signs: Vital Signs: Last Vital Signs Temp 98.6 F 08/31/23 07:54 Pulse 71 08/31/23 07:54 Resp 18 08/31/23 07:54 BP 128/75 08/31/23 07:54 Pulse Ox 96 08/31/23 07:54 O2 Del Method Room Air 08/31/23 07:54 BMI result Body Mass Index 23.6 Appearance: Alert.? Oriented. cvs: rrr, [id number] . res: clear to auscultation ,no rhonchii or wheezing abd: no rebound or guarding ,nt, bs present. ext pulses present , no cyanosis . neuro: nonfocal. DS: Data Imaging Chest x-ray: Radiologist's impression: ITS Impressions Chest X-Ray 08/29/23 15:54 IMPRESSION: 1. Low lung volumes with chronic interstitial thickening. 2. No focal consolidation, pleural effusion or pneumothorax. 3. Equivocal pulmonary nodule in the left apex versus summation artifact. Recommend further evaluation with outpatient CT chest. The report will be called to the ordering clinician by a [place] Radiology Physician Doctor Of Nursing Practice. Discharge Plan Discharge Anticipated Discharge Date/Time: 08/31/23 10:16 Patient Disposition: Xfer [facility] Discharge Diagnosis: htn, massiel Referrals: Regis Wahl MD [Primary Care Provider] - 1 Week Discharge Medications: Continued atorvastatin 80 mg Tablet 80 mg PO BEDTIME vitamin E 268 mg (400 unit) Capsule 268 mg PO DAILY aspirin 81 mg Tablet,Delayed Release (Dr/Ec) 81 mg PO DAILY Qty: 0 0RF multivitamin Tablet 1 tab PO DAILY acetaminophen 325 mg Tablet 650 mg PO Q4H PRN (Reason: Fever Or Pain) melatonin 3 mg Tablet 6 mg PO BEDTIME PRN (Reason: Sleep) bisacodyl 10 mg Suppository 10 mg HI DAILY PRN (Reason: Constipation) Rx Instructions: use if M.O.M infective Fleet Enema 19-7 gram/118 mL Enema 118 ml HI DAILY PRN (Reason: Constipation) Rx Instructions: use if Bisacodyl is ineffective magnesium hydroxide [Milk Of Magnesia Concentrated] 2,400 mg/10 mL Suspension 30 ml PO DAILY PRN (Reason: Constipation) Rx Instructions: use if no BM in 3 days calcium carbonate-vitamin D3 [Calcium 500 + D] 500 mg-10 mcg (400 unit) Tablet 0.5 tab PO DAILY Saccharomyces boulardii 10 billion cell Capsule 10,000 mmu cells PO BID Changed amlodipine 5 mg Tablet 2.5 mg PO DAILY Qty: 30 0RF Protocol: Hold for SBP< HOLD for SBP < : 90 Discontinued hydrochlorothiazide 12.5 mg Tablet 12.5 mg PO DAILY Discharge Orders: Discharge Order (Routine); Ordered 08/31/23 Ordered By: Emilia Alexandre Diet: Advance to usual diet Activity on Discharge: As tolerated Stand Alone Forms: Patient Portal Discharge page Care Plan Goals: Patient was admitted for dizziness sec to Possible multifactorial MASSIEL, dehydration, blood pressure medication: hctz discontinued due to massiel,hyponatremia,also received iv hydration: currently asymptomatic . massiel -thought to be sec to hctz and levaquin -improved with iv hydration and stopping hctz. please check bmp in 1 week. htn: blood pressure seem fine, amlodipine adjusted to 2.5 mg daily, stop hctz. if needed for blood pressure adjust and uptitarte amlodipine dosing. Equivocal pulmonary nodule in the left apex versus summation artifact on CXR. Further evaluation with outpatient CT chest recommended. Health Concerns: as above. Plan of Treatment: as above. Assessment: as above.
--- NOTE | 2023-08-31 12:22 | HO.WOUND ---
Wound Consult: Initial 88yr old M? admitted to [facility] [place] on 08/29/23 - Last admission 08/18/23 - See progress notes and H&P for detailed history.? Wound consult placed for Buttocks, sacrum and Bilateral Leg wounds POA.? Patient agreeable to assessment and photo documentation.? The patient reports the injury to his buttocks is secondary to falling at home and landing on a stool on his buttocks until EMS arrived. The left buttocks is an atypical location for a pressure injury however given the fall and position he maintained for several hours this is likely the cause of injury. Bilateral Legs have evidence of recent significant swelling - swelling is currently resolved but evidence remains. Both legs were noted for thick scaling lifting dry epidermal layers. These were easily removed with cleansing and revealed left [place] partial thickness tissue loss. Bilateral Lower Legs 08/22/23 Left [place] wound improved from last admission 08/31/23 Etiology: Venous Dermatitis ? Wound Bed: resurfacing pink moist partial thickness tissue Drainage / Odor: None noted Edges: ? Irregular and attached Kat wound: evidence of previous swelling - swelling is currently resolved but evidence remains? No Induration, Fluctuance or Warmth noted Pain: denies pain Goals of Treatment: ? Moist wound healing Left Buttocks and sacrum 08/22/23 Sacrum and Left Buttock 08/31/23 Etiology: Sacrum Stage 2 Pressure Injury ??Present on Admission Measurements: see charting for detailed measurements Wound Bed: resolving partial thickness tissue loss - dry epidermal layer in place - red pink slow to amanda tissue Drainage / Odor: None Edges: ? Irregular Kat wound: ? Intact - No Induration, Fluctuance or Warmth noted Pain: None Goals of Treatment: ? Moist wound healing and to protect from friction and moisture with Triad and Foam Etiology: Left Buttock - Unstageable Pressure Injury - ?Present on Admission Measurements: see charting for detailed measurements Wound Bed: Full thickness tissue loss - moist yellow, pink maroon purple wound bed Drainage / Odor: moderate yellow drainage noted -- no odor Edges: ? Irregular Kat wound: ?dry red blanchable tissue - No Induration, Fluctuance or Warmth noted Pain: mild tenderness reported Goals of Treatment: ? Moist wound healing and to protect from friction and moisture with Triad and Foam Left Heel Etiology:Resurfacing Deep Tissue Injury ??Present on Admission Measurements: see charting for detailed measurements Wound Bed: resolving tissue loss - with dark maroon pigmentation nonblanchable noted - dry epidermal layer in place Drainage / Odor: None Edges: ? Irregular Kat wound: ? [place] blanchable Intact tissue - No Induration, Fluctuance or Warmth noted Pain: Patient reports pain throughout assessment Goals of Treatment: ? Off Load Pressure and protect from friction with foam and heel protector boots Recommendations: 1. Turn and Reposition every 2 hours and as needed for patient comfort.? Use pillows or wedges to support off loading positions. Waffle cushion in place 2. Off Load all bony prominences with use of pillows and heel boots if needed.? Apply Preventative foams where needed. ? 3. Monitor for incontinence and moisture control, use barrier creams when needed for prevention and treatment. 4. Provide adequate and supplemental nutrition.? 5. Order or Continue low air loss mattress. 6. Bilateral Lower Legs - Cleanse with PH Balanced [place], apply vaseline to lower legs cover open wounds with xeroform, cover with ABD pad, & Gauze wrap. Change Daily. 7. Sacrum and Left Buttock - Off Load Pressure - Ensure Waffle cushion is in use when up to recliner chair. Cleanse with PH balance spray or wipes, pat dry. ?Apply thin layer of Triad to wound bed. Do not remove all of paste between applications as this may cause further skin damage.? Cover with foam dressing to aid in off loading and protection from friction. 8. Left Heel - Routin cleansing, pat dry. Apply skin prep allow to dry. Apply Foam dressing to heel peel back and assess Q shift and change every three days. Use Heel Protector boots to aid in off loading pressure. Re-consult wound care Nurse for wound deterioration or wound changes.
== END 2023-08-31 12:30 | disposition skilled nursing facility (03) | DRG 683 ==
LOC: HO.ED 20:36 → HO.EDOVER 21:28 → HO.S3 08-30 19:46
PROVIDERS: Admitting Provider Internal Medicine; Emergency Provider Emergency Medicine; PCP Family Medicine; Referring Provider Internal Medicine; Visit Provider Internal Medicine
DX: N17.9 Acute kidney failure, unspecified (principal); E87.1 Hypo-osmolality and hyponatremia; I25.10 Atherosclerotic heart disease of native coronary artery without angina pectoris; R91.1 Solitary pulmonary nodule; R55 Syncope and collapse; E78.00 Pure hypercholesterolemia, unspecified; T36.8X5A Adverse effect of other systemic antibiotics, initial encounter; T50.2X5A Adverse effect of carbonic-anhydrase inhibitors, benzothiadiazides and other diuretics, initial encounter; E86.0 Dehydration; I10 Essential (primary) hypertension; Z20.822 Contact with and (suspected) exposure to COVID-19; Z79.899 Other long term (current) drug therapy
CPT/HCPCS: 0241U; 36415; 71046; 80048; 80053; 80076; 81003; 83605; 83690; 84484; 85025; 93005; 97162; 99285; J1644

== ENCOUNTER → 2023-08-29 15:28 | Outpatient (BNV) | payer OTHER, SELFPAY | PROVIDERS: Admitting Provider Internal Medicine; Emergency Provider Emergency Medicine; PCP Family Medicine; Visit Provider Internal Medicine | DX: M62.81 Muscle weakness (generalized) (principal); R94.31 Abnormal electrocardiogram [ECG] [EKG] | CPT/HCPCS: 93010 ==

== ENCOUNTER → 2023-08-29 21:14 | Outpatient (BNV) | payer OTHER, SELFPAY | PROVIDERS: Admitting Provider Internal Medicine; Emergency Provider Emergency Medicine; PCP Family Medicine; Visit Provider Internal Medicine | DX: N17.9 Acute kidney failure, unspecified (principal) | CPT/HCPCS: 99223; 99239; 99499 ==

== ENCOUNTER 2023-09-12 15:04 | Emergency (ER) | payer OTHER, SELFPAY ==
--- NOTE | 2023-09-12 | ECG_ITS ---
Test Reason : DIZZINESS Blood Pressure : / mmHG Vent. Rate : 072 BPM Atrial Rate : 072 BPM P-R Int : 106 ms QRS Dur : 086 ms QT Int : 422 ms P-R-T Axes : 057 056 086 degrees QTc Int : 462 ms Sinus rhythm with short [place] Otherwise normal ECG When compared with ECG of 29-AUG-2023 15:41, No significant change was found Referred By: Generic ED Physician Electronically Signed By:TING BELTRAN MD
[2023-09-12 15:10] VITALS: BP 122/64; BP 135/59; PULSE 80; PULSE 88; RESP 18; TEMP 36.6; O2SAT 96; O2SAT 97; BMI 20.5
[2023-09-12 16:02] LABS: MANUAL DIFF FLAG NO
[2023-09-12 16:04] LABS: Basophils Percent Auto 0.5 % (0-2); Eosinophils Absolute Auto 0.5 X10*3/uL (0.0-0.4); Eosinophils Percent Auto 6.5 % (0-4); Hematocrit 29.1 % (42.0-52.0); Hemoglobin 9.2 g/dl (14.0-18.0); Imm Gran Abs Auto 0.04 X10*3/uL (0.00-0.03); Imm Gran Pct Auto 0.5 % (0.0-0.4); Lymphocytes Absolute Auto 1.3 X10*3/uL (1.2-4.9); Lymphocytes Percent Auto 15.6 % (20-40); Mean Corpuscular HGB Conc 31.6 g/dl (31.0-36.0); Mean Corpuscular Hemoglobin 27.7 pg (27.0-33.0); Mean Corpuscular Volume 87.7 fL (80.0-98.0); Mean Platelet Volume 10.8 fL (9.4-12.4); Monocytes Absolute Auto 0.9 X10*3/uL (0.1-1.2); Monocytes Percent Auto 10.5 % (2-11); Neutrophils Absolute Auto 5.6 x10*3/uL (2.0-8.3); Neutrophils Percent Auto 66.4 % (45-73); Platelet Count 235 X10*3/uL (160-400); Red Blood Count 3.32 X10*6/uL (4.60-5.80); Red Cell Distribution Width 16.2 % (11.0-16.0); White Blood Count 8.4 X10*3/uL (4.8-10.8)
[2023-09-12 16:15] VITALS: BP 144/67; PULSE 70
[2023-09-12 16:15] LABS: Lactic Acid 0.9 mmol/L (0.5-2.0)
[2023-09-12 16:18] VITALS: BP 138/64; PULSE 75
[2023-09-12 16:19] VITALS: PULSE 90
[2023-09-12 16:19] LABS: Alanine Aminotransferase 12 U/L (0-40); Albumin Level 3.6 g/dL (3.5-5.0); Alkaline Phosphatase 91 U/L (39-117); Anion Gap 12 (12-20); Aspartate Amino Transferase 28 U/L (5-37); Bilirubin Total 0.3 mg/dL (0.0-1.0); Blood Urea Nitrogen 25 mg/dL (9-16); Calcium 9.8 mg/dL (8.4-10.2); Carbon Dioxide 28 mmol/L (22-29); Chloride 101 mmol/L (96-108); Creatinine Clr Calc Pharmacy 31.5; Estimated Glomerular Filt Rate 47; Glucose Random 110 mg/dL (60-115); Potassium 4.2 mmol/L (3.3-5.1); Sodium 137 mmol/L (135-145); Total Protein 7.4 g/dL (6.5-8.0)
[2023-09-12 16:25] VITALS: BP 138/64; PULSE 74; RESP 15; O2SAT 97
--- NOTE | 2023-09-12 16:52 | ED.DIZZY ---
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 Related Data Home Medications Medication Instructions Recorded Confirmed atorvastatin 80 mg tablet 80 mg PO BEDTIME 08/18/23 08/29/23 vitamin E 268 mg (400 unit) capsule 268 mg PO DAILY 08/18/23 08/29/23 Saccharomyces boulardii 10 billion 10,000 mmu cells PO BID 08/29/23 08/29/23 cell capsule acetaminophen 325 mg tablet 650 mg PO Q4H PRN Fever Or Pain 08/29/23 08/29/23 bisacodyl 10 mg rectal suppository 10 mg [place] DAILY PRN Constipation 08/29/23 08/29/23 calcium carbonate 500 mg-vitamin 0.5 tab PO DAILY 08/29/23 08/29/23 D3 10 mcg (400 unit) tablet (Calcium 500 + D) magnesium hydroxide 2,400 mg/10 mL 30 ml PO DAILY PRN Constipation 08/29/23 08/29/23 oral suspension (Milk Of Magnesia Concentrated) melatonin 3 mg tablet 6 mg PO BEDTIME PRN Sleep 08/29/23 08/29/23 multivitamin 1 tab PO DAILY 08/29/23 08/29/23 sodium phosphates 19 gram-7 118 ml [place] DAILY PRN Constipation 08/29/23 08/29/23 gram/118 mL enema (Fleet Enema) Previous Rx's Medication Instructions Recorded aspirin 81 mg tablet,delayed 81 mg PO DAILY #0 tabs 06/03/23 release amlodipine 5 mg tablet 2.5 mg PO DAILY #30 tabs 08/31/23 Allergies Allergy/AdvReac Type Severity Reaction Status Date / Time No Known Allergies Allergy Unverified 06/08/21 11:28 [No Known Allergies*] Review of Systems Review of Systems: Pertinent positives and negatives as stated in HPI PMFSH Past Medical History Source: nursing notes reviewed Medical History Abnormal CT scan Inguinal hernia with strangulation TIA (transient ischemic attack) Hypercholesterolemia Hypertension Surgical History History of right inguinal hernia repair Social History Social History Household Members: Other Housing: [facility] Other:: From [facility] Do you presently have visiting nurse or other home services: Yes Unable to assess alcohol history related to: Unknown Alcohol intake: former Patient Tobacco Use Status: Never used Tobacco Smoked in Last 30 Days: No e-Cigarette/Vaping Use: Never Used Second Hand Smoke Exposure: No Use of substances other than those prescribed or required for medical reasons: No Advance Directives: Yes Advance Directives on File: Yes Advance Directives Date on File: 09/17/22 service: Yes Current occupational status: retired Physical Exam Vital Signs: Vital Signs: Last Vital Signs Temp 97.8 F 09/12/23 15:10 Pulse 74 09/12/23 16:25 Resp 15 09/12/23 16:25 BP 138/64 09/12/23 16:25 Pulse Ox 97 09/12/23 16:25 O2 Del Method Room Air 09/12/23 16:25 BMI result Body Mass Index 20.5 VITAL SIGNS: Reviewed. GENERAL: Well developed, well nourished, in no acute distress. HEAD: Normocephalic/atraumatic EYES: PERRLA, EOMI EARS: Ext canals without abnormality NOSE: Nares patent bilateral OROPHARYNX: no oral lesions noted, posterior pharynx clear NECK: Supple, no adenopathy LUNGS: Normal breath sounds. No adventitious sounds or accessory muscle use. SpO2<97> CARDIOVASCULAR: Regular rate and rhythm without noted murmurs ABDOMEN: Soft, non-tender, non-distended with bowel sounds. MUSCULOSKELETAL: No tenderness, deformities, or effusions noted on gross inspection. EXTREMITIES: No cyanosis, clubbing or edema. SKIN: Inspection of the skin reveals no rashes NEUROLOGIC: Alert and oriented x 4. Strength and sensation to light touch were grossly intact x 4. Medical Decision Making Medical Decision Making MDM Narrative: 88-year-old male with history and clinical presentation consistent with chronic dizziness/lightheadedness as well as deconditioning. I reviewed the urinalysis culture and sensitivity report which demonstrates that patient has UTI is sensitive to Macrobid and this can be prescribed by the facility supervising physician but will provide patient with initial dose here in this emergency room. There is no demonstrated orthostatic positivity here and certainly no hypotension. I reviewed all investigations and hematologic indices are negative for leukocytosis or left shift, there is a stable normocytic anemia and no thrombocytopenia. Chemistry indices are grossly within normal limits other than a very slight MASSIEL for which it appears the supervising physician has been ordering fluid replacement but it does not appear that this has been executed by nursing staff. I think that if patient is encouraged to drink more water kidney function will continue to improve. Differential Diagnosis Differential Diagnoses: The differential diagnosis associated with the presentation includes Please see the discussion above Admission/Observation Consideration of admission/observation: Escalation of care including admission/observation considered Please see the discussion above Lab Data MDM Lab Attestation statement: I reviewed the patient's lab results. Please see the discussion above 09/12/23 15:56 09/12/23 15:56 Labs: Lab Results 09/12/23 Range/Units 15:56 WBC 8.4 (4.8-10.8) X10*3/uL RBC 3.32 L (4.60-5.80) X10*6/uL Hgb 9.2 L (14.0-18.0) g/dl Hct 29.1 L (42.0-52.0) % MCV 87.7 (80.0-98.0) fL MCH 27.7 (27.0-33.0) pg MCHC 31.6 (31.0-36.0) g/dl RDW 16.2 H (11.0-16.0) % Plt Count 235 D (160-400) X10*3/uL MPV 10.8 (9.4-12.4) fL Immature Gran % (Auto) 0.5 H (0.0-0.4) % Neut % (Auto) 66.4 (45-73) % Lymph % (Auto) 15.6 L (20-40) % [place] % (Auto) 10.5 (2-11) % Eos % (Auto) 6.5 H (0-4) % Baso % (Auto) 0.5 (0-2) % Lymph # (Auto) 1.3 (1.2-4.9) X10*3/uL [place] # (Auto) 0.9 (0.1-1.2) X10*3/uL Eos # (Auto) 0.5 H (0.0-0.4) X10*3/uL Baso # (Auto) 0.0 (0.0-0.2) X10*3/uL Abs Immat Gran (auto) 0.04 H (0.00-0.03) X10*3/uL Absolute Neuts (auto) 5.6 (2.0-8.3) x10*3/uL Absolute Nucleated RBC 0.000 (0.0-0.012) X10*3/uL Nucleated RBC % (auto) 0.0 (0.0-0.2) /100WBC Sodium 137 (135-145) mmol/L Potassium 4.2 (3.3-5.1) mmol/L Chloride 101 (96-108) mmol/L Carbon Dioxide 28 (22-29) mmol/L Anion Gap 12 (12-20) BUN 25 H (9-16) mg/dL Creatinine 1.43 H (0.5-1.4) mg/dL Estim Creat Clear Calc 31.5 Estimated GFR 47 Random Glucose 110 (60-115) mg/dL Lactic Acid 0.9 (0.5-2.0) mmol/L Calcium 9.8 D (8.4-10.2) mg/dL Total Bilirubin 0.3 (0.0-1.0) mg/dL AST 28 (5-37) U/L ALT 12 (0-40) U/L Alkaline Phosphatase 91 (39-117) U/L Total Protein 7.4 (6.5-8.0) g/dL Albumin 3.6 (3.5-5.0) g/dL Independent Interpretation I performed an independent interpretation of an: EKG Interpretation: Normal sinus rhythm, HR-72, no STEMI, [place] shortened at 106, QRS and QTC are within normal limits. External Record Review External record reviewed: Outpatient record, Prior outpatient labs and Primary care record Chronic Conditions Patient?s care impacted by: Hypertension Critical Care Time Critical Care Time Critical Care Time: Yes Total Critical Care Time: 30 Attestation: I personally attest to this time spent taking care of the patient. Discharge Plan Discharge Clinical Impression: Acute UTI Instructions: Urinary Tract Infection in Men (ED) Additional Instructions: 1. Please have facility supervising physician prescribe appropriate Macrobid for coverage of patient's current urinary tract infection. Patient received 1st dose this evening and next dose should be administered tomorrow morning. 2. Please encourage liquids, especially water. Patient was not found to be with a low blood pressure and was not found to be orthostatic positive. Prescriptions: No Action atorvastatin 80 mg Tablet 80 mg PO BEDTIME vitamin E 268 mg (400 unit) Capsule 268 mg PO DAILY aspirin 81 mg Tablet,Delayed Release (Dr/Ec) 81 mg PO DAILY Qty: 0 0RF multivitamin Tablet 1 tab PO DAILY acetaminophen 325 mg Tablet 650 mg PO Q4H PRN (Reason: Fever Or Pain) melatonin 3 mg Tablet 6 mg PO BEDTIME PRN (Reason: Sleep) bisacodyl 10 mg Suppository 10 mg [place] DAILY PRN (Reason: Constipation) Rx Instructions: use if M.O.M infective [place] Enema 19-7 gram/118 mL Enema 118 ml [place] DAILY PRN (Reason: Constipation) Rx Instructions: use if Bisacodyl is ineffective magnesium hydroxide [Milk Of Magnesia Concentrated] 2,400 mg/10 mL Suspension 30 ml PO DAILY PRN (Reason: Constipation) Rx Instructions: use if no BM in 3 days calcium carbonate-vitamin D3 [Calcium 500 + D] 500 mg-10 mcg (400 unit) Tablet 0.5 tab PO DAILY Saccharomyces boulardii 10 billion cell Capsule 10,000 mmu cells PO BID amlodipine 5 mg Tablet 2.5 mg PO DAILY Qty: 30 0RF Protocol: Hold for SBP< HOLD for SBP < : 90
[2023-09-12 18:56] VITALS: BP 153/77; PULSE 71; RESP 16; TEMP 36.6; O2SAT 99
[2023-09-12] MEDS: Nitrofurantoin Monohyd/M-Cryst 100 MG CAPSULE PO (18:58)
--- NOTE | 2023-09-12 19:01 | PC.NURSE ---
pt medicated per MAR, RN-RN report given to [facility], pt transporting via EMS.
== END 2023-09-12 19:02 | disposition skilled nursing facility (03) ==
PROVIDERS: Emergency Provider Student in an Organized Health Care Education/Training Program
DX: N39.0 Urinary tract infection, site not specified (principal); R42 Dizziness and giddiness; R94.31 Abnormal electrocardiogram [ECG] [EKG]; R30.0 Dysuria; Z79.899 Other long term (current) drug therapy
CPT/HCPCS: 36415; 51701; 80053; 83605; 85025; 87040; 93005; 99283; 99285

== ENCOUNTER → 2023-09-12 15:42 | Outpatient (BNV) | payer OTHER, SELFPAY | PROVIDERS: Emergency Provider Student in an Organized Health Care Education/Training Program; Visit Provider Internal Medicine Cardiovascular Disease | DX: R42 Dizziness and giddiness (principal) | CPT/HCPCS: 93010 ==

== ENCOUNTER 2023-10-15 14:03 | Emergency (ER) | payer MEDICARE, SELFPAY ==
--- NOTE | ~2023-10-15 | CT_ITS ---
EXAMINATION: CT HEAD WITHOUT CONTRAST CLINICAL INFORMATION: Syncope COMPARISON: Previous head CT 08/18/2023 TECHNIQUE: Contiguous axial imaging was performed from the skull base to vertex without intravenous administration of contrast. This CT examination was performed using dose optimization techniques as appropriate, variously including the following: *Automated exposure control *Adjustment of mA and/or kV according to patient size (this includes techniques or standardized protocols for targeted exams where dose is matched to indication/reason for exam; i.e. extremities or head) *Use of iterative reconstruction technique DLP: 564 mGy-cm FINDINGS: There is no evidence of an extra-axial collection. There is no evidence of intra or extra-axial hemorrhage. The ventricles and extra-axial CSF spaces are prominent suggestive of mild generalized atrophy. There is nonspecific periventricular white matter disease. 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 No mass, mass effect or acute infarct. No skull fracture. Visualized sinuses are clear. Bi lateral mastoid effusions unchanged. Severe degenerative changes at C1-C2. Degenerative changes of both temporomandibular joints. CT/CT head/brain wo IV con IMPRESSION: No acute findings. No change from August 2023 exam.
--- NOTE | ~2023-10-15 | XR_ITS ---
EXAMINATION: XR CHEST CLINICAL INFORMATION: Syncope COMPARISON: Previous x-ray most recent August 2023 TECHNIQUE: Frontal view of the chest was obtained. FINDINGS: The cardiac and mediastinal contours are stable. The lung volumes are low. There is bibasilar subsegmental atelectasis. No pleural effusion or pneumothorax. Old right rib fractures. XR/XR chest 1V IMPRESSION: Low lung volumes and bibasilar subsegmental atelectasis.
[2023-10-15 14:14] VITALS: BP 146/80; BP 161/75; PULSE 70; PULSE 79; RESP 18; TEMP 36.5; O2SAT 97; O2SAT 99; BMI 22.0
--- NOTE | 2023-10-15 14:21 | ECG_ITS ---
Test Reason : weakness Blood Pressure : / mmHG Vent. Rate : 071 BPM Atrial Rate : 000 BPM P-R Int : 000 ms QRS Dur : 076 ms QT Int : 418 ms P-R-T Axes : 000 053 079 degrees QTc Int : 454 ms Normal sinus rhythm Abnormal ECG When compared with ECG of 12-SEP-2023 15:42, No significant changes seen Referred By: Marco Delaney Electronically Signed By:HUMBERTO WESTFALL
--- OUTSIDE RECORDS SUMMARY | 2023-10-15 14:46 | XMS_ITS | Continuity of Care Document ---
Author Organization [facility] ter Address [address] [place] [id number]- Care Team Providers Care Director Corporate Compliance Name Role Phone Cristino Little MD Primary Care Physician [phone] [place] [facility] [place](s[place] 09/21/22 - 09/23/[address] [address]- Encounter Diagnosis History of heart failure(Final) - 09/21/22 History of coronary artery disease(Final) - 09/21/22 History of hypertension(Final) - 09/21/22 Symptomatic anemia(Final) - 09/21/22 Discharge Disposition: A-Transfer SNF Attending Physician: Blaze Kilpatrick DO Admitting Physician: Glen Watson MD Referring Physician: Not on Staff, Referring MD Allergies, Adverse Reactions, Alerts No Known Allergies Medications aspirin 81 mg oral delayed release tablet 81 mg, 1, tablet, By Mouth, Daily, # 30 tablet, Refills 0, Maintenance, 09/22/22 1:56:00 EDT, Partial fill upon patient request if the prescription is for a schedule II opioid drug. Start Date: 09/22/22 Status: Ordered bisacodyl 10 mg rectal suppository 1 supp = 10 mg, Rectally, Daily, PRN for constipation, # 10 supp, 0 Refills, Maintenance, 09/22/22 1:57:00 EDT, Suppository, Partial fill upon patient request if the prescription is for a schedule IIopioid drug. Start Date: 09/22/22 Status: Ordered Fleet Enema 19 gm-7 gm rectal enema 1 each, Rectally, Daily, PRN for constipation, # 133 mL, 0 Refills, Maintenance, 09/22/22 1:57:00 EDT, Enema, Partial fill upon patient request if the prescription is for a schedule II opioid drug. Start Date: 09/22/22 Status: Ordered magnesium hydroxide 8% oral suspension 30 mL = 2.4 Gm, By Mouth, Daily at bedtime, PRN for constipation, # 300 mL, 0 Refills, Maintenance,09/22/22 1:57:00 EDT, Suspension, Partial fill upon patient request if the prescription is for a schedule II opioid drug. Start Date: 09/22/22 Status: Ordered metoprolol 25 mg oral tablet 12.5 mg, Tablet, By Mouth, Hold for: sbp<110, HR<55, 09/23/22 9:00:00 EDT Start Date: 09/23/22 Stop Date: 09/23/22 Status: Completed metoprolol 25 mg oral tablet 12.5 mg, 0.5, tablet, By Mouth, 2 times a day, Refills 0, Maintenance, 09/23/22 11:55:00 EDT, Partial fill upon patient request if the prescription is for a schedule II opioid drug. Start Date: 09/23/22 Status: Ordered Plavix 75 mg oral tablet 75 mg, 1, tablet, By Mouth, Daily, # 30 tablet, Refills 5, Maintenance, 09/22/22 1:59:00 EDT, Partial fill upon patient request if the prescription is for a schedule II opioid drug. Start Date: 09/22/22 Status: Ordered Problem List Condition Confirmation Course Effective Dates Status [facility] Informant COVID-19 1 Confirmed 09/23/22 Active 1Problem added by Discern Expert Vital Signs Most recent to oldest [Reference Range]: 1 2 3 4 Height 172 cm (09/23/22 3:41 AM) 172 cm (09/22/22 11:50 PM) 172 cm (09/22/22 8:44 PM) Weight 70 kg (09/22/22 8:44 PM) 70 kg (09/22/22 8:41 PM) Oxygen Saturation [94-100 %] 100 % (09/23/22 8:00 AM) 99 % (09/23/22 3:41 AM) 100 % (09/22/22 11:50 PM) Pulse Rate [55-90 bpm] 66 bpm (09/23/22 8:03 AM) 62 bpm (09/23/22 3:41 AM) 62 bpm (09/22/22 11:50 PM) Body Mass Index [18.5-24.99 kg/m2] 23.66 kg/m2 (09/22/22 8:44 PM) 23.66 kg/m2 (09/22/22 8:41 PM) Blood Pressure [90-138/55-84 mm Hg] 162/72mm Hg *H* (09/23/22 8:03 AM) 140/59mm Hg *H* (09/23/22 3:41 AM) 139/69mm Hg *H* (09/22/22 11:50 PM) Respiratory Rate [16-30 br/min] 18 br/min (09/23/22 3:41 AM) 18 br/min (09/22/22 11:50 PM) 17 br/min (09/22/22 8:44 PM) 17 br/min (09/22/22 8:44 PM) Temperature [96.8-100.4 DegF] 98.2 DegF (09/23/22 8:00 AM) 98.6 DegF (09/23/22 3:41 AM) 98.4 DegF (09/22/22 11:50 PM) Liters per Minute 1 L/min (09/23/22 8:00 AM) 1 L/min (09/23/22 3:41 AM) 1 L/min (09/22/22 11:50 PM) Mode of Delivery (Oxygen) Simple face mask (09/23/22 8:00 AM) Nasal cannula (09/23/22 3:41 AM) Nasal cannula (09/22/22 11:50 PM) Blood pressure sites Arm, left (09/23/22 8:00 AM) Arm, right (09/23/22 3:41 AM) Arm, right (09/22/22 11:50 PM) Temperature Route Oral (09/23/22 8:00 AM) Oral (09/23/22 3:41 AM) Oral (09/22/22 11:50 PM) Dry Weight 69 kg (09/22/22 8:44 PM) 69 kg (09/22/22 8:41 PM) Weight Obtained Via Patient/family stated (09/22/22 8:41 PM) Dry Weight Obtained Via Bed scale (09/22/22 8:41 PM) Social History Social History Type Response Sex Male Admission evaluation note * Behzad PAPPAS, Rosemary Dumont: PERFORM, MODIFY, MODIFY Event Display: Admission Note Authored Date: Patient: ??YEISON WILLIAMSON ? Age:??87 Years?Sex:??Male?:??1935?? Chief Complaint/Reason for Consultation Pt is coming from [facility], when staff called for abnormal labs for low Hemaglobin and Low Hematocrit and patient was tested today and is Covid Positive. Pt denies any complaints. History of Present Illness ??87-year-old male with PMH of combined systolic and diastolic heart failure, CAD, HTN, left inguinal hernia was brought from rehab to the ED due to low hemoglobin. ?? Patient's medical chart reviewed, seen and examined at bedside.?? Patient very pleasant, hard of hearing, currently denies any complaints.?? He was sent into the ED due to low hemoglobin from rehab facility in which he is for PT/OT.?? Patient on aspirin and Plavix for CAD.?? He currently denies anychest pain, shortness of breath, palpitations, hematuria, hematochezia/melena.?? He denies any bruising/bleeding from any site.?? He denies any recent fevers, chills, cough, sore throat, runny nose, nausea, vomiting, dizziness, falls/head injury/trauma, abdominal pain, constipation, diarrhea, dysuria.?? Patient was recently positive for COVID few days ago at rehab facility.?? Denies any COVID symptoms. ?? Initially in the ED patient remains afebrile, HR 78, RR 19, BP 142/65, saturation 97% on room air.?? Mild leukocytosis of 14.8, critical hemoglobin of 5, MCV of 98, PLT 372, electrolytes normal, BUN/creatinine 21/1.4, blood glucose 105, C-19 PCR positive.?? Patient received 1 unit PRBC and in process of getting second unit.?? Patient will be admitted to inpatient medicine service for further management Review of Systems All the systems are reviewed and are negative, except as above Objective ? Vital Signs?? Temperature: 99.9 DegF (09/21/22 23:54:00) Temperature Route: Oral (09/21/22 23:54:00) Pulse Rate: 84 bpm (09/22/22 01:47:00) Respiratory Rate: 20 br/min (09/22/22 01:47:00) Systolic Blood Pressure:??163 mm Hg??High (09/22/22 01:47:00) Diastolic Blood Pressure: 78 mm Hg (09/22/22 01:47:00) Blood pressure sites: Arm, left (09/22/22 01:47:00) Mean Arterial Pressure: 87 mm Hg (09/21/22 17:03:00) Pulse Pressure: 85 mm Hg (09/22/22 01:47:00) Oxygen Saturation: 100 % (09/22/22 01:47:00) Liters per Minute: 2 L/min (09/21/22 12:18:00) Mode of Delivery (Oxygen): Room air (09/22/22 01:47:00) Early Warning Score: 0 (09/22/22 01:48:21) ? Pain Scores 1 - 10 Pain Scale Score: 0 (12:46) ? Intake/Output? 09/21 15:13 09/22 07:00 09/21 07:00 09/20 07:00 09/19 07:00 ?? 09/22 02:02 09/22 02:02 09/22 06:59 09/21 06:59 09/20 06:59 Intake ?405 ?0 ?405 ?0 ?0 Output ?0 ?0 ?0 ?0 ?0 Net Total ?405 ?0 ?405 ?0 ?0 ? Precautions No Precautions documented.? Physical Exam ?? Gen- not in acute distress,comfortabily lying on bed, speaking in full sentences, hard of hearing??with underlying dementia. HEENT- Normocephalic, Atraumatic, pallor + Neck-supple, no JVD, no lymphadenopathy. Heart-S1S2(+),??regular, no murmurs lungs- Clear, b/l air entry, no wheezing Abdomen-soft, nontender,nondistended,??bowel sounds present in 4q, No guarding, No rigidity,??no bruising of the skin. Extremities-pulses palpable??2+. No pedal edema. No calf tenderness.?? No swelling of the thighs/legs Neurological-alert and awake and oriented to self Psychiatric-patient???s mood is stable. ? Assessment/Plan ??87-year-old male with PMH of combined systolic and diastolic heart failure, CAD, HTN, left inguinal hernia was brought from rehab to the ED due to low hemoglobin.Initially in the ED patient remainsafebrile, HR 78, RR 19, BP 142/65, saturation 97% on room air.?? Mild leukocytosis of 14.8, critical hemoglobin of 5, MCV of 98, PLT 372, electrolytes normal, BUN/creatinine 21/1.4, blood glucose 105, C-19 PCR positive.?? Patient received 1 unit PRBC and in process of getting second unit.?? Patientwill be admitted to inpatient medicine service for further management ?? Normocytic??anemia requiring blood transfusion No active signs of bleeding from any site Vitals as per unit standards Supplemental oxygen if needed Keep active type and screen, maintain hemoglobin more than 8??as history of CAD S/p 2 units of PRBC overnight Slow transfusion??to prevent??TACO. [t with h/o Heart failure Follow-up with repeat CBC??in a.m.??and transfuse if needed Please follow-up with??serum??iron, ferritin,??TIBC,??haptoglobin,??reticulocyte count,??LDH,??vitamin B12, folic acid???added onto the admission labs We will hold off on aspirin and Plavix for now, resume once warranted ?? CAD/CHF/HTN???aspirin and Plavix on hold for now. ??We will continue with metoprolol 12.5 mg??twicedaily??with holding parameters Constipation???as needed bowel regimen Left inguinal hernia -no signs of incarceration. ??Will monitor ?? Code???full, as per??paper chart sent from rehab facility Diet???cardiac diet DVT prophylaxis???pneumatic compression boots for now ?? Patient seen and examined on 09/21/2022 Histories Allergies Allergies ?(Active and Proposed Allergies Only) NKA? (Severity: Unknown severity, Onset: Unknown) ? Past Medical History/Problem List No problems documented. ? Past Surgical History No surgery history documented. ? Social History No social history documented. ? Family History No family history recorded. ? Medications Home Medications Aspirin (aspirin 81 mg oral delayed release tablet)?81?Milligram?1?tablet?By Mouth?Daily Bisacodyl (bisacodyl 10 mg rectal suppository)?1?suppository(ies)?10?Milligram?Rectal ly?Daily?as needed?for constipation Clopidogrel (Plavix 75 mg oral tablet)?75?Milligram?1?tablet?By Mouth?Daily Metoprolol (metoprolol 25 mg oral tablet)?12.5?Milligram?0.5?tablet?By Mouth?3 times a day Milk of Magnesia (magnesium hydroxide 8% oral suspension)?30?Milliliter?2.4?gram?By Mouth?Daily at bedtime?as needed?for constipation Sodium Biphosphate-Sodium Phosphate (Fleet Enema 19 gm-7 gm rectal enema)?1?Each?Rectally?Daily?as needed?for constipation ? Inpatient Medications Medications (7) Active SCHEDULED: (2) Metoprolol 25mg Tablet (metoprolol 25 mg oral tablet) ??12.5 mg, By Mouth, 2 times a day NaCl 0.9% Flush 3ml (NaCL 0.9% Flush) ??3 mL, IV Push, Every 8 hours CONTINUOUS: (0) PRN: (5) Acetaminophen 325 mg Tablet (Acetaminophen Tablet) ??650 mg, By Mouth, Every 4 hours Bisacodyl 10 mg Suppository (Bisacodyl Supp) ??10 mg 1 supp, Rectally, Daily Melatonin 3 mg Tablet (Melatonin Tablet) ??3 mg, By Mouth, Daily at bedtime NaCl 0.9% Flush 3ml (NaCL 0.9% Flush) ??3 mL, IV Push, Every 8 hours Senna 8.6 mg / Docusate 50 mg tablet (Docusate/Senna Tablet) ??1 tablet, By Mouth, 2 times a day ? Results Recent Labs BLOOD BANK Blood Type O Positive ()?? 09/21/2022 14:59 Antibody Screen Negative ()?? 09/21/2022 14:59 RBC Unit ID [id number] ()?? 09/21/2022 16:03 RBC Available IS ()?? 09/21/2022 16:03 ?? BLOOD COUNT & DIFF WBC 14.8 k/mm3 (High)?? 09/21/2022 12:55 RBC 1.63 m/mm3 (Low)?? 09/21/2022 12:55 Hgb 5.0 Gm/dL (Critical)?? 09/21/2022 12:55 Hct 16.0 % (Critical)?? 09/21/2022 12:55 MCV 98.2 femtoliters (High)?? 09/21/2022 12:55 MCH 30.7 pg ()?? 09/21/2022 12:55 MCHC 31.3 g/dL (Low)?? 09/21/2022 12:55 Platelet Count 372 k/mm3 ()?? 09/21/2022 12:55 RDW-SD 56.6 femtoliters (High)?? 09/21/2022 12:55 MPV 10.9 femtoliters ()?? 09/21/2022 12:55 Nucleated RBC (Automated) 1.2 #/100 WBC'S ()?? 09/21/2022 12:55 Abs. NRBC 0.2 k/mm3 ()?? 09/21/2022 12:55 Abs. Neut 11.5 k/mm3 (High)?? 09/21/2022 12:55 Abs. Lymph 1.8 k/mm3 ()?? 09/21/2022 12:55 Abs. [place] 0.7 k/mm3 ()?? 09/21/2022 12:55 Abs. Eo 0.3 k/mm3 ()?? 09/21/2022 12:55 Abs. Baso 0.0 k/mm3 ()?? 09/21/2022 12:55 Neut % 76.0 % ()?? 09/21/2022 12:55 Lymph % 12.0 % (Low)?? 09/21/2022 12:55 [place] % 5.0 % ()?? 09/21/2022 12:55 Eos % 2.0 % ()?? 09/21/2022 12:55 Baso % 0.0 % ()?? 09/21/2022 12:55 Promyelocyte % 1.0 % ()?? 09/21/2022 12:55 Myelocytes % 2.0 % ()?? 09/21/2022 12:55 Band % 2.0 % ()?? 09/21/2022 12:55 RBC Morphology MODERATE ()?? 09/21/2022 12:55 ?? CHEM GENERAL Sodium 142 mmol/L ()?? 09/21/2022 12:55 Potassium 4.4 mmol/L ()?? 09/21/2022 12:55 Chloride 107 mmol/L ()?? 09/21/2022 12:55 Bicarbonate Level 25 mmol/L ()?? 09/21/2022 12:55 Anion Gap 10 ()?? 09/21/2022 12:55 Glucose Level 105 mg/dL (High)?? 09/21/2022 12:55 BUN 21 mg/dL ()?? 09/21/2022 12:55 Creatinine-Blood 1.4 mg/dL (High)?? 09/21/2022 12:55 Estimated GFR Creatinine 47 ML/MIN/1.73 M2 ()?? 09/21/2022 12:55 Calcium 8.9 mg/dL ()?? 09/21/2022 12:55 Alkaline Phosphatase 68 units/L ()?? 09/21/2022 12:55 Lipase 42 units/L ()?? 09/21/2022 12:55 AST (SGOT) 27 units/L ()?? 09/21/2022 12:55 ALT (SGPT) 16 units/L ()?? 09/21/2022 12:55 Bilirubin, Total 1.0 mg/dL ()?? 09/21/2022 12:55 ?? HEME OTHER Hold Blue Top SPECIMEN DISCARDED AFTER 4 HOURS. ()?? 09/21/2022 12:55 ?? MISC. CHEMISTRY Hold Green Top SPECIMEN DISCARDED AFTER 1 WEEK ()?? 09/21/2022 12:55 ?? VIROLOGY COVID-19 PCR Specimen Source NASAL ()?? 09/21/2022 16:13 COVID-19 PCR Result POSITIVE (Abnormal)?? 09/21/2022 16:13 ? Urinalysis?? No qualifying data available. ?? Microbiology ?? COVID-19 (2019 Novel Coronavirus) PCR?? Completed?? Source: Nasal Body Site: Nose Collected Dt/Tm: 09/21/2022 15:32 Last Updated Dt/Tm: 09/21/2022 18:09 ? Hospital Progress note * Hawk Law DO: PERFORM Event Display: Progress Note Hospital Authored Date: [id number] Patient: ??TRUMANYEISON CALLOWAY ? Age:??87 Years?Sex:??Male?:??1935?? Subjective I spoke to Yeison and I spoke to his . ??Briefly this is a 87-year-old male who was previously living independently in his home with his . ??They have no children, the been for over 40years. ??I spoke to her today on the phone. ?? Apparently about 1 to 2 weeks ago the patient went to??[facility] with??shortness of breath and was diagnosed with COVID, he was also diagnosed with a mild heart attack according to his . ??Unfortunately I have no records at [facility] could find no records of the [facility] system as w anna.?? He has no previous records at [facility]. ??I do not have access to the??hospital course notesor recent labs at [facility]. ?? His reports that he been transferred to the local rehab unit, when her hemoglobin was checked and was 5??they transferred to [facility] for treatment. ?? Ideally the patient would have been??served if he transferred back to [facility]??where??his labs and records are known. ??However we have no recent labs at [facility] as well. ?? He currently is sitting up awake and alert with no complaints. ??He has no chest pain fevers or chills. ??No abdominal pain he is eating and drinking. ?? See below but I did a rectal exam at the bedside, there is brown stool in the vault, no melena no blood. ?? He has never had a colonoscopy and he is not sure he would want one. ?? He currently received a unit of blood and I have ordered a cycle and that his hemoglobin is still less than 7. ?? 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 Review of Systems No complaints of fevers chills chest pain shortness breath nausea vomit diarrhea dysuria Allergies Allergies ?(Active and Proposed Allergies Only) NKA? (Severity: Unknown severity, Onset: Unknown) ? Past Medical History No problems documented. ? Past Surgical History No surgery history documented. ? Objective Vital Signs?? Temperature: 98.6 DegF (09/22/22 12:51:00) Temperature Route: Oral (09/22/22 12:51:00) Pulse Rate: 82 bpm (09/22/22 12:07:00) Respiratory Rate: 18 br/min (09/22/22 12:07:00) Systolic Blood Pressure:??167 mm Hg??High (09/22/22 12:05:00) Diastolic Blood Pressure: 80 mm Hg (09/22/22 12:05:00) Blood pressure sites: Arm, left (09/22/22 01:47:00) Mean Arterial Pressure: 87 mm Hg (09/21/22 17:03:00) Pulse Pressure: 82 mm Hg (09/22/22 05:49:00) Oxygen Saturation: 96 % (09/22/22 12:07:00) Mode of Delivery (Oxygen): Room air (09/22/22 12:07:00) Early Warning Score: 0 (09/22/22 12:51:09) ? Pain Scores?? No qualifying data available. ? Intake/Output? 09/21 15:13 09/22 07:00 09/21 07:00 09/20 07:00 09/19 07:00 ?? 09/22 14:27 09/22 14:27 09/22 06:59 09/21 06:59 09/20 06:59 Intake ?551 ?0 ?551 ?0 ?0 Output ?0 ?0 ?0 ?0 ?0 Net Total ?551 ?0 ?551 ?0 ?0 ? Physical Exam General: Alert and oriented no distress Chest: Clear auscultation bilaterally Skin exam regular rate and rhythm JVP not elevated no rubs murmurs or gallops Abdomen bowel sounds present soft nontender pain to palpation Rectal: See above,??no evidence of bleeding no melena no blood??brown stool in the vault Neurologic: Awake alert??motor strength is 5 x 5 upper and lower extremities, he is very hard of hearing,??skin is warm and dry. Skin: He is pale but skin is warm and dry No edema in lower extremities. _ Inpatient Medications Medications (8) Active SCHEDULED: (3) Aspirin 81 mg EC Tablet (aspirin 81 mg oral delayed release tablet) ??81 mg, By Mouth, Daily Metoprolol 25mg Tablet (metoprolol 25 mg oral tablet) ??12.5 mg, By Mouth, 2 times a day NaCl 0.9% Flush 3ml (NaCL 0.9% Flush) ??3 mL, IV Push, Every 8 hours CONTINUOUS: (0) PRN: (5) Acetaminophen 325 mg Tablet (Acetaminophen Tablet) ??650 mg, By Mouth, Every 4 hours Bisacodyl 10 mg Suppository (Bisacodyl Supp) ??10 mg 1 supp, Rectally, Daily Melatonin 3 mg Tablet (Melatonin Tablet) ??3 mg, By Mouth, Daily at bedtime NaCl 0.9% Flush 3ml (NaCL 0.9% Flush) ??3 mL, IV Push, Every 8 hours Senna 8.6 mg / Docusate 50 mg tablet (Docusate/Senna Tablet) ??1 tablet, By Mouth, 2 times a day ? Results Recent Labs BLOOD BANK Blood Type O Positive ()?? 09/21/2022 14:59 Antibody Screen Negative ()?? 09/21/2022 14:59 RBC Unit ID [id number] ()?? 09/21/2022 16:03 RBC Available PT ()?? 09/21/2022 16:03 ?? BLOOD COUNT & DIFF WBC 14.6 k/mm3 (High)?? 09/22/2022 04:42 RBC 2.39 m/mm3 (Low)?? 09/22/2022 04:42 Hgb 6.9 Gm/dL (Low)?? 09/22/2022 04:42 Hct 21.7 % (Low)?? 09/22/2022 04:42 MCV 90.8 femtoliters ()?? 09/22/2022 04:42 MCH 28.9 pg ()?? 09/22/2022 04:42 MCHC 31.8 g/dL (Low)?? 09/22/2022 04:42 Platelet Count 322 k/mm3 ()?? 09/22/2022 04:42 RDW-SD 53.7 femtoliters (High)?? 09/22/2022 04:42 MPV 11.1 femtoliters ()?? 09/22/2022 04:42 Nucleated RBC (Automated) 0.8 #/100 WBC'S ()?? 09/22/2022 04:42 Abs. NRBC 0.1 k/mm3 ()?? 09/22/2022 04:42 Abs. Neut 11.5 k/mm3 (High)?? 09/21/2022 12:55 Abs. Lymph 1.8 k/mm3 ()?? 09/21/2022 12:55 Abs. [place] 0.7 k/mm3 ()?? 09/21/2022 12:55 Abs. Eo 0.3 k/mm3 ()?? 09/21/2022 12:55 Abs. Baso 0.0 k/mm3 ()?? 09/21/2022 12:55 Neut % 76.0 % ()?? 09/21/2022 12:55 Lymph % 12.0 % (Low)?? 09/21/2022 12:55 [place] % 5.0 % ()?? 09/21/2022 12:55 Eos % 2.0 % ()?? 09/21/2022 12:55 Baso % 0.0 % ()?? 09/21/2022 12:55 Promyelocyte % 1.0 % ()?? 09/21/2022 12:55 Myelocytes % 2.0 % ()?? 09/21/2022 12:55 Band % 2.0 % ()?? 09/21/2022 12:55 RBC Morphology MODERATE ()?? 09/21/2022 12:55 Retic Count 6.7 % (High)?? 09/21/2022 12:55 Retic Count Corrected 2.4 % (High)?? 09/21/2022 12:55 Retic Production Index 1.2 % ()?? 09/21/2022 12:55 ?? CHEM GENERAL Sodium 142 mmol/L ()?? 09/21/2022 12:55 Potassium 4.4 mmol/L ()?? 09/21/2022 12:55 Chloride 107 mmol/L ()?? 09/21/2022 12:55 Bicarbonate Level 25 mmol/L ()?? 09/21/2022 12:55 Anion Gap 10 ()?? 09/21/2022 12:55 Glucose Level 105 mg/dL (High)?? 09/21/2022 12:55 BUN 21 mg/dL ()?? 09/21/2022 12:55 Creatinine-Blood 1.4 mg/dL (High)?? 09/21/2022 12:55 Estimated GFR Creatinine 47 ML/MIN/1.73 M2 ()?? 09/21/2022 12:55 Calcium 8.9 mg/dL ()?? 09/21/2022 12:55 LDH 399 units/L (High)?? 09/21/2022 12:55 Alkaline Phosphatase 68 units/L ()?? 09/21/2022 12:55 Lipase 42 units/L ()?? 09/21/2022 12:55 AST (SGOT) 27 units/L ()?? 09/21/2022 12:55 ALT (SGPT) 16 units/L ()?? 09/21/2022 12:55 Bilirubin, Total 1.0 mg/dL ()?? 09/21/2022 12:55 Vitamin B12 Level 3982 pg/mL (High)?? 09/21/2022 12:55 Folic Acid Level 26.0 ng/mL ()?? 09/21/2022 12:55 Iron Level 35 mcg/dL (Low)?? 09/21/2022 12:55 Iron Binding Capacity, Unsaturated 188 mcg/dL ()?? 09/21/2022 12:55 Iron Binding Capacity, Estimated Total 223 mcg/dL ()?? 09/21/2022 12:55 % Iron Saturation 16 % (Low)?? 09/21/2022 12:55 ?? HEME OTHER Hold Blue Top SPECIMEN DISCARDED AFTER 4 HOURS. ()?? 09/21/2022 12:55 ?? IMMUNOLOGY GENERAL Haptoglobin 252 mg/dL (High)?? 09/21/2022 12:55 ?? MISC. CHEMISTRY Hold Green Top SPECIMEN DISCARDED AFTER 1 WEEK ()?? 09/21/2022 12:55 ?? VIROLOGY COVID-19 PCR Specimen Source NASAL ()?? 09/21/2022 16:13 COVID-19 PCR Result POSITIVE (Abnormal)?? 09/21/2022 16:13 ? Abnormal Labs ?? BLOOD BANK ??Antibody Screen ??Negative () ??09/21/2022 14:59 ??Blood Type ??O Positive () ??09/21/2022 14:59 ? BLOOD COUNT & DIFF ??Abs. NRBC ??0.1 k/mm3 () ??09/22/2022 04:42 ??Hct ??21.7 % (Low) ??09/22/2022 04:42 ??Hgb ??6.9 Gm/dL (Low) ??09/22/2022 04:42 ??MCHC ??31.8 g/dL (Low) ??09/22/2022 04:42 ??Nucleated RBC (Automated) ??0.8 #/100 WBC'S () ??09/22/2022 04:42 ??RBC ??2.39 m/mm3 (Low) ??09/22/2022 04:42 ??RDW-SD ??53.7 femtoliters (High) ??09/22/2022 04:42 ??WBC ??14.6 k/mm3 (High) ??09/22/2022 04:42 ? VIROLOGY ??COVID-19 PCR Specimen Source ??NASAL () ??09/21/2022 16:13 ??COVID-19 PCR Result ??POSITIVE (Abnormal) ??09/21/2022 16:13 ? Note: Critical results are displayed in red. ? Assessment/Plan Chief Complaint: Pt is coming from [facility], when staff called for abnormal ??labs for low Hemaglobin and Low Hematocrit and patient ??was tested ??today and is Covid Positive. Pt denies any complaints. ?? Diagnoses History of coronary artery disease ??(Z86.79) History of heart failure ??(Z86.79) History of hypertension ??(Z86.79) 1. ??Symptomatic anemia ??(D64.9) ?? Assessment:??87-year-old male with??anemia, this was found??incidentally on the outpatient labs Barbara do not have access to the [facility] physicians, or, the patient's records at [facility].??This could be a chronic anemia,??given that we have no evidence of acute blood loss. ?? His reports history of coronary disease, with a recent myocardial infarction at [facility] without intervention. ?? He has no??previous records of GI bleeding cancers??or colonoscopies. ?? His chronic issues reported to be heart failure hypertension. ?? Symptomatic anemia (D64.9):??His anemia work-up was initiated with a reticulocyte count, he is slightly hypoproliferative given his degree of anemia. Reticulocyte count was reviewed, B12 and folate are normal, iron is mildly low,??haptoglobin is normal with no evidence of hemolysis.??We will give another unit of blood,??I do not think the patient would benefit from an inpatient colonoscopy.??We would have to verify his recent cardiovascular history before subjecting him to a bowel prep and a colonoscopy.??He follows up with the [facility]??in [facility],??if his hemoglobin stable and there is no significant drop, perhaps this can be done as an outpatient. ?? History of coronary artery disease (Z86.79):??Given that there is no overt bleeding I started him on aspirin, he is on metoprolol. ?? History of heart failure (Z86.79):??He is euvolemic and not in heart failure ?? History of hypertension (Z86.79):??Pressure seems to be controlled on metoprolol ?? 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 VTE Prophylaxis:??SCDs for now, no overt contraindication for DVT prophylaxis with heparin or Lovenox ?VTE Prophylaxis Assessment:??VTE Prophylaxis Ordered ?? Code Status:??Full code ?Order Code Status:??Code Status Ordered ?? Discharge Planning:??If his hemoglobin stable I will discharge him back to the rehab unit, PT orderwas??placed.??We will coordinate care with the [facility]??in [facility]. ? Note * Alma Rosa Loja RN: PERFORM Event Display: Discharge/Transfer Note Hospital Authored Date: [id number] Nursing Discharge Note Entered On: 09/23/2022 12:27 EDT Performed On: 09/23/2022 12:27 EDT by Alma Rosa Loja RN Nursing Discharge Note 2 Discharge Time : 09/23/2022 12:25 EDT Discharge Level of Care at Discharge : care home facility Discharge Nursing Homes/Rehab Facilities : [facility] Patient Left Unit Via : Ambulance Patient Accompanied Off Unit with : Ambulance/Chair Van Personnel Handover Given to Transport Personnel : Yes DC Instructions Provided & Signed by Pt : No Patient Understands D/C Instructions : No Patient Instructions Discharge Signed : No Instructions for Discharge Comments : Patient went to a SNF Did Pt have Specialty Bed or Wound Vac : Yes Alma Rosa Loja RN - 09/23/2022 12:27 EDT * Xochilt Hernadez MD: MODIFY, PERFORM Event Display: Discharge/Transfer Note Hospital Authored Date: [id number] Patient: ??YEISON WILLIAMSON ? Age:??87 Years?Sex:??Male?:??1935?? Patient Information Discharge Location: Primary Care Physician: Cristino Little MD Admit Date/Time: 09/21/22 15:13 Discharge Date: 09/23/22 Discharge Disposition Discharge Disposition: Long Term Facility/Rehab Discharge Diagnosis Symptomatic anemia (D64.9) History of coronary artery disease (Z86.79) History of heart failure (Z86.79) History of hypertension (Z86.79) ?? _ Discharge Medications Aspirin (aspirin 81 mg oral delayed release tablet)?81?Milligram?1?tablet?By Mouth?Daily Bisacodyl (bisacodyl 10 mg rectal suppository)?1?suppository(ies)?10?Milligram?Rectal ly?Daily?as needed?for constipation Clopidogrel (Plavix 75 mg oral tablet)?75?Milligram?1?tablet?By Mouth?Daily Metoprolol (metoprolol 25 mg oral tablet)?12.5?Milligram?0.5?tablet?By Mouth?3 times a day Milk of Magnesia (magnesium hydroxide 8% oral suspension)?30?Milliliter?2.4?gram?By Mouth?Daily at bedtime?as needed?for constipation Sodium Biphosphate-Sodium Phosphate (Fleet Enema 19 gm-7 gm rectal enema)?1?Each?Rectally?Daily?as needed?for constipation ? Medications Started None Medications Discontinued None Doses Changed None PCP Follow-Up/Heads-Up Repeat CBC and consider colonoscopy for anemia Hospital Course 87-year-old male with??anemia, this was found??incidentally on the outpatient labs without evidenceof acute blood loss. His reports history of coronary disease, with a recent myocardial infarction at [facility] without intervention. He has no??previous records of GI bleeding cancers??or colonoscopies. No melena noted since his admission. Hemoglobin has been stable. He is clinically and hemodynamically ready for discharge. ?? Symptomatic anemia (D64.9):??His anemia work-up was initiated with a reticulocyte count, he is slightly hypoproliferative given his degree of anemia. Reticulocyte count was reviewed, B12 and folate are normal, iron is mildly low,??haptoglobin is normal with no evidence of hemolysis.??Given 2 units of blood. We would have to verify his recent cardiovascular history before subjecting him to a bowelprep and a colonoscopy.??He follows up with the [facility]in [facility],??can consider??colonoscopy as an outpatient. ?? History of coronary artery disease (Z86.79):??Given that there is no overt bleeding, resumed??aspirin and clopidogrel, he is on metoprolol.? History of heart failure (Z86.79):??He is euvolemic and not in heart failure ?? History of hypertension (Z86.79):??Pressure seems to be controlled on metoprolol ?? 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 COVID positive: tested positive on 09/21/22. On room air saturating well. Denies any SOB or cough. Will need to be isolated for 5 days per [facility] guilines. Does not qualify for further treatment or Oxygen supplimentation ?? Objective Assessment and Plan see above ? . Physical Exam General: No acute distress HEENT: EOMI, mucous membranes moist CV: Regular rate and rhythm. No murmurs, gallops, rubs Respiratory: All burdick clear to auscultation bilaterally. No wheezes, rales, rhonchi Abdominal: Soft, nontender. Bowel sounds noted : No suprapubic tenderness Extremities: No lower extremity edema Neuro: AAO x3. Motor 5/5 all extremities. Sensation intact Psych: Affect appropriate Skin: No lesions, wounds, rashes Consultants None Patient Education Titles Anemia?? Follow-Up Appointments Added Follow Up ?Time Frame ?Comments Cristino Little MD?1-2 day: call to discuss follow up visit Cristino Little MD Patient Instructions Dear Mr. Williamson, it was a pleasure meeting you. You came to the hospital due to anemia, you weregiven 2 units of blood which improved your blood count. We have resumed your aspirin and clopidogrel. Please follow up with your primary care physician as soon as possible. If you do notice and bloodloss, including blood in your stool, please return to the hospital. You were incidentally found to be covid positive and will need to be isolated for 5 days, and retest, if negative can wear a mask outside (per CDC guidelines). Tested positive on 09/21/22 Results Test Name Test Result Date/TimeWBC 13.5 k/mm3 (High) 09/23/2022 01:35 EDT Hgb 7.9 Gm/dL (Low) 09/23/2022 01:35 EDT Hct 24.2 % (Low) 09/23/2022 01:35 EDT MCV 90.0 femtoliters 09/23/2022 01:35 EDT MCHC 32.6 g/dL (Low) 09/23/2022 01:35 EDT Platelet Count 289 k/mm3 09/23/2022 01:35 EDT RDW-SD 52.8 femtoliters (High) 09/23/2022 01:35 EDT Sodium 134 mmol/L 09/23/2022 01:35 EDT Potassium 4.5 mmol/L 09/23/2022 01:35 EDT Chloride 106 mmol/L 09/23/2022 01:35 EDT Bicarbonate Level 23 mmol/L 09/23/2022 01:35 EDT Anion Gap 5 09/23/2022 01:35 EDT Glucose Level 104 mg/dL (High) 09/23/2022 01:35 EDT BUN 18 mg/dL 09/23/2022 01:35 EDT Creatinine-Blood 1.1 mg/dL 09/23/2022 01:35 EDT Estimated GFR Creatinine 66 ML/MIN/1.73 M2 09/23/2022 01:35 EDT Calcium 8.2 mg/dL (Low) 09/23/2022 01:35 EDT 35_ minutes spent on discharge Patient discussed with attending physician, Dr. Shonna Hernadez MD PGY2- IM ?? * Blaze Kilpatrick DO: PERFORM Event Display: Discharge/Transfer Note Hospital Authored Date: Attending Attestation (Blaze Kilpatrick, D.O.) ?? I have seen and evaluated this patient, discussed the case and its management with the resident, and I agree with the findings and plan as documented in the resident???s note. * Quintin DODD, Rafael: PERFORM, SIGN, VERIFY Event Display: Case Management Discharge Plan Authored Date: [id number] Patient: YEISON WILLIAMSON Age: 87 years Sex: Male : 1935 Associated Diagnoses: None Author: Rafael Ribeiro RN Discharge Plan Case Management Discharge Plan : Case Management Discharge Plan Data 09/23/2022 10:05 EDT Discharge Level of Care at Discharge care home facility Discharge Nursing Homes/Rehab Facilities [facility] [place] Discharge Transportation Arranged [facility] [address] [place] [address] Discharge Arranged Transport Date/Time 09/23/2022 12:00 Mode of Transportation Arranged Ambulance Name of Agency #1 [facility] Service Categories #1 Occupational Therapy, Physical Therapy, Long Term Service Comments #1 Ambulance arranged for 12pm 09/22/2022 14:53 EDT Discharge Nursing Homes/Rehab Facilities [facility] * Charla Kitchen RN: PERFORM Event Display: Patient Education/Instruction Authored Date: Inpatient Adult Discharge Instructions [address] [address] Name: YEISON WILLIAMSON : 1935 Visit: 09/21/2022 15:13:00 Current Date: 09/23/2022 11:56 Account: [id number] Inpatient Adult Discharge Instructions We would like to thank you for allowing us to assist you with your healthcare needs. The following includes patient education materials and information regarding your injury/illness. Our entire staffstrives to provide an excellent experience for our patients and their families. PLEASE ENSURE YOU FOLLOW-UP PER THE INSTRUCTIONS BELOW! ?? YOUR OPINION IS IMPORTANT TO US! Please complete the survey you may receive by mail or email. Your feedback will be used to make improvements to the healthcare experiences of our patients and their families. Surveys are administered by [employer] ?? If further treatment with your primary care physician or another doctor is recommended, it is important for you to keep the appointment. Call your primary care physician or return to the Emergency Department immediately if your condition worsens, fails to improve, or new symptoms develop. If you need to find a doctor, you can call [facility] for a referral at [phone] or toll free at [phone] or log in to [email or web address].. ?? You can view and manage your care through the patient portal or by using a health care fara of your choosing. [employer] is a website that allows you to securely view your medical information including your hospital discharge summary, office visit summaries, medications and follow-up visits. You can also request appointments, renew medications, and request access to your medical information using a health care fara of your choosing, or just ask a question. You can enroll at [email or web address] or register during your next office visit. You have been discharged from [facility], Patient Care Unit: W4. If you have any questions regarding these instructions after you leave, please call us and we will be happy to assist you. [facility] Your Care Team Attending Physician Blaze Kilpatrick DO Discharging Providers Xochilt Hernadez MD Reason for Your Visit Pt is coming from [facility], when staff called for abnormal labs for low Hemaglobin and Low Hematocrit and patient was tested today and is Covid Positive. Pt denies any complaints. Your Diagnosis Symptomatic anemia COVID History of coronary artery disease,??History of heart failure,??History of hypertension Tests Performed Below is a partial list of the tests performed during your hospitalization. You may have had other tests and procedures not included in this list. Please discuss all test results with your provider. ALK PHOS ALT AST Basic Metabolic Panel BILIRUBIN,TOTAL CBC CBC w/ Differential COVID-19 (2019 Novel Coronavirus) PCR FOLIC ACID HAPTOGLOBIN HOLD BLUE TUBE HOLD GREEN TUBE IRON & TIBC LDH LIPASE RETICULOCYTE COUNT Type and Screen VITAMIN B12 Primary Care Provider Cristino Little MD Advance Directive . Discharge Vitals Temperature: 98.2 DegF Height: 172 cm Pulse Rate: 66 bpm Weight: 70 kg Respiratory Rate: 18 br/min Body Mass Index: 23.66 kg/m2 Systolic Blood Pressure:??162 mm Hg??High Body surface area: 1.83 Diastolic Blood Pressure: 72 mm Hg ?? Oxygen Saturation: 100 % ?? Studies Pending All tests and labs ordered during this hospital stay have been completed unless listed below. Please discuss all pending results with your provider listed above in these instructions. ?? Add On Lab Order Hold Lavender Tube (BB) Transfuse RBCs What to do next Instructions From Your Doctor Dear Mr. Williamson, it was a pleasure meeting you. You came to the hospital due to anemia, you weregiven 2 units of blood which improved your blood count. We have resumed your aspirin and clopidogrel. Please follow up with your primary care physician as soon as possible. If you do notice and bloodloss, including blood in your stool, please return to the hospital. You were incidentally found to be covid positive and will need to be isolated for 5 days, and retest, if negative can wear a mask outside (per CDC guidelines). Tested positive on 09/21/22 Discharge Orders You Need to Schedule the Following Appointments Follow Up with??Cristino Little MD When??Within 1-2 day: call to discuss follow up visit Where: [address] [place] [address] [facility] [place] [address]- Follow Up with??Cristino Little MD When?? Where: [address] [facility] [address]- Discharge Medications YEISON WILLIAMSON :1935 Visit Date:09/21/2022 Medications: Please continue your medications until treatment is completed or stopped by your provider. Medications not listed below should be discontinued. Discuss any questions related to medications with your provider. What How Much When Instructions Next Dose Changed Metoprolol (metoprolol 25 mg oral tablet) 0.5 tab(s) Oral Twice a day Tonight 09/23 Unchanged Aspirin (aspirin 81 mg oral delayed release tablet) 1 tab(s) Oral Daily Tomorrow AM 09/24 Unchanged Bisacodyl (bisacodyl 10 mg rectal suppository) 1 suppository(ies) Per rectum Daily as needed for for constipation As needed Unchanged Clopidogrel (Plavix 75 mg oral tablet) 1 tab(s) Oral Daily Tomorrow AM 09/24 Unchanged Milk of Magnesia (magnesium hydroxide 8% oral suspension) 30 Milliliter Oral Daily at Bedtime as needed for for constipation As needed Unchanged Sodium Biphosphate-Sodium Phosphate (Fleet Enema 19 gm-7 gm rectal enema) 1 Each Per rectum Daily as needed for for constipation As needed Test Results Below is a partial list of the most recent Laboratory test results done prior to this discharge. You may have had other tests and procedures not included in this list. Please discuss all test resultswith your provider. RBC Available - PT (09/22/2022) RBC Unit ID - [id number]-* (09/22/2022) ALK PHOS (09/21/2022) ???Alkaline Phosphatase - 68 units/L ALT (09/21/2022) ???ALT (SGPT) - 16 units/L AST (09/21/2022) ???AST (SGOT) - 27 units/L Basic Metabolic Panel (09/23/2022) ???Sodium - 134 mmol/L???Potassium - 4.5 mmol/L???Chloride - 106 mmol/L???Bicarbonate Level - 23 mmol/L???Anion Gap - 5???Glucose Level - 104 mg/dL???BUN - 18 mg/dL???Creatinine-Blood - 1.1 mg/dL???Estimated GFR Creatinine - 66 ML/MIN/1.73 M2???Calcium - 8.2 mg/dL BILIRUBIN,TOTAL (09/21/2022) ???Bilirubin, Total - 1.0 mg/dL CBC (09/23/2022) ???WBC - 13.5 k/mm3???RBC - 2.69 m/mm3???Hgb - 7.9 Gm/dL???Hct - 24.2 %???MCV - 90.0 femtoliters???MCH - 29.4 pg???MCHC - 32.6 g/dL???Platelet Count - 289 k/mm3???RDW-SD - 52.8 femtoliters???MPV - 10.8 femtoliters???Nucleated RBC (Automated) - 0.2 #/100 WBC'S???Abs. NRBC - 0.0 k/mm3 CBC w/ Differential (09/21/2022) ???WBC - 14.8 k/mm3???RBC - 1.63 m/mm3???Hgb - 5.0 Gm/dL???Hct - 16.0 %???MCV - 98.2 femtoliters???MCH - 30.7 pg???MCHC - 31.3 g/dL???Platelet Count - 372 k/mm3???RDW-SD - 56.6 femtoliters???MPV - 10.9 femtoliters???Nucleated RBC (Automated) - 1.2 #/100 WBC'S???Abs. NRBC - 0.2 k/mm3???Abs. Neut - 11.5 k/mm3???Abs. Lymph - 1.8 k/mm3???Abs. [place] - 0.7 k/mm3???Abs. Eo - 0.3 k/mm3???Abs. Baso - 0.0 k/mm3???Neut % - 76.0 %???Lymph % - 12.0 %???[place] % - 5.0 %???Eos % - 2.0 %???Baso % - 0.0 %???Promyelocyte % - 1.0 %???Myelocytes % - 2.0 %???Band % - 2.0 %???RBC Morphology - MODERATE COVID-19 (2019 Novel Coronavirus) PCR (09/21/2022) ???COVID-19 PCR Specimen Source - NASAL???COVID-19 PCR Result - POSITIVE FOLIC ACID (09/21/2022) ???Folic Acid Level - 26.0 ng/mL HAPTOGLOBIN (09/21/2022) ???Haptoglobin - 252 mg/dL HOLD BLUE TUBE (09/21/2022) ???Hold Blue Top - SPECIMEN DISCARDED AFTER 4 HOURS. HOLD GREEN TUBE (09/21/2022) ???Hold Green Top - SPECIMEN DISCARDED AFTER 1 WEEK IRON & TIBC (09/21/2022) ???Iron Level - 35 mcg/dL???Iron Binding Capacity, Unsaturated - 188 mcg/dL???Iron Binding Capacity, Estimated Total - 223 mcg/dL???% Iron Saturation - 16 % LDH (09/21/2022) ???LDH - 399 units/L LIPASE (09/21/2022) ???Lipase - 42 units/L RETICULOCYTE COUNT (09/21/2022) ???Retic Count - 6.7 %???Retic Count Corrected - 2.4 %???Retic Production Index - 1.2 % Type and Screen (09/21/2022) ???Blood Type - O Positive???Antibody Screen - Negative VITAMIN B12 (09/21/2022) ???Vitamin B12 Level - 3982 pg/mL Allergies (NKA means No Known Allergies) NKA Problems Active Problems??(1) COVID-19?? Education Materials Below is the list of Educational Leaflet Providered with your Discharge Instructions. Anemia?? Valuables and Belongings I fully understand and agree that [facility] accepts no responsibility for all my personal property including clothing, toilet articles, radios, jewelry, dentures, hearing aids, rings, money, or any other property that is in my possession or is brought to me after admission. I understand certain valuables may be placed in a hospital safe for a short period of time. I understand that the hospital is not liable for loss or damage due to accident, fire, or other natural occurrence while said property is in the safe. I accept full responsibility for any personal property that I keep with me, and will not hold the hospital responsible in case of loss or disappearance. I acknowledge that i have been encouraged to send valuables and belongings home. ?? Review of Valuable and Belonging List: With patient, With witness Date for Pt to Sign Valuables/Belongings: 09/22/22 21:05:00 ?? Other Discharge Information ? Case Management Discharge Plan?? Discharge Plan?? Discharge Agency Information?? Discharge Level of Care at Discharge: care home facility Name of Agency #1: [facility] Discharge Transportation Arranged: [facility] [address] [facility] ??[phone] Service Categories #1: Occupational Therapy, Physical Therapy, Long Term Mode of Transportation Arranged: Ambulance Service Comments #1: Ambulance arranged for 12pm Discharge Arranged Transport Date/Time: 09/23/22 12:00:00 ?? Discharge Nursing Homes/Rehab Facilities: [facility] ? Pulmonary Rehab Status?? Pulmonary Rehab Discharge Status?? Respiratory Rate: 18 br/min ? Common Emergency Awareness Tips IS IT A STROKE? Act FAST and Check for these signs: FACE Does the face look uneven? ARM Does one arm drift down? SPEECH Does their speech sound strange? TIME Call at any sign of stroke ?? Heart Attack Signs Chest discomfort: Most heart attacks involve discomfort in the center of the chest and lasts more than a few minutes, or goes away and comes back. It can feel like uncomfortable pressure, squeezing, fullness or pain. Discomfort in upper body: Symptoms can include pain or discomfort in one or both arms, back, neck, jaw or stomach. Shortness of breath: With or without discomfort. Other signs: Breaking out in a cold sweat, nausea, or lightheaded. Remember, MINUTES DO MATTER. If you experience any of these heart attack warning signs, call to get immediate medical attention! ?? Smoking can increase your chances of developing chronic health problems and can cause harmful effects to other family members in your house. If you smoke, you are strongly encouraged to quit. Please call [facility] at [phone] or [phone] ([phone]) or log in to [email or web address] for referrals to smoking cessation programs. ?? 117 Suicide & Crisis Lifeline is available 03/01 if you or someone you know needs to find a reason to keep living. By calling 721 you'll be connected to a skilled, trained counselor at a crisis center in your area. INPATIENT DISCHARGE INSTRUCTIONS SIGNATURE PAGE YEISON WILLIAMSON Location:[facility] Registration Date and Time:09/21/2022 15:13 EDT Primary Care Physician: Anabel PAPPAS, Cristino Saucedo, I YEISON WILLIAMSON, have received the above patient education materials/instructions and have verbalized understanding. If ambulance or transport services are being used I further acknowledge being given a choice of service. ?? If you need to contact me, please call me at this number: . 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 [address] Anemia Anemia is a condition that occurs when your body doesn't have enough healthy red blood cells (RBCs). RBCs are the parts of your blood that carry oxygen all over your body. A protein called hemoglobinallows your RBCs to absorb and release oxygen. Without enough RBCs or hemoglobin, your body doesn'tget enough oxygen. Symptoms of anemia may then occur. What are the symptoms of anemia? Some people with anemia have no symptoms. But most people have symptoms that range from mild to severe. These can include: ??? Extreme tiredness (fatigue) ??? Weakness ??? Pale skin ??? Shortness of breath ??? Feeling dizzy or fainting ??? Rapid or irregular heartbeat ??? Trouble doing normal amounts of activity ??? Yellowing of your eyes, skin, or mouth and dark urine (jaundice) ??? Headache ???Cold hands or feet ??? Chest pain ??? Pounding or whooshing sound in your ears ?? What causes anemia? Anemia can occur when your body: ??? Loses too much blood ??? Doesn't make enough RBCs ??? Destroys your RBCs at a faster rate than it can replace them ??? Doesn't make a normal amount of hemoglobin in your RBCs These problems can occur for many reasons, including: ??? A condition that you're born with (congenital or inherited), such as sickle cell disease or thalassemia ??? Heavy bleeding for any reason, including injury, surgery, childbirth, or even heavy menstrual periods ??? Being low in certain nutrients, such as iron, folate, or vitamin B-12 ??? Certainlong-term (chronic) conditions such as diabetes, arthritis, or kidney disease ??? Certain chronic in fections such as tuberculosis or HIV ??? Exposure to certain medicines, such as those used for chemotherapy There are different types of anemia. Your healthcare provider can tell you more about the type of anemia you have and what may have caused it. ?? How is anemia diagnosed? To diagnose anemia, your healthcare provider orders blood tests. These can include: ??? Complete blood cell count (CBC). This test measures the amounts of the different types of blood cells. ??? Blood smear. This test checks the size and shape of your blood cells. To do the test, a drop of your blood is looked at under a microscope. A stain is used to make the blood cells easier to see. ??? Iron studies. These tests measure the amount of iron in your blood. Your body needs iron to make hemoglobin in your RBCs. ??? Vitamin B-12 and folate studies. These tests check for some of the components that help give RBCs a normal size and shape. ??? Reticulocyte count. This test measures the amount ofnew RBCs that your bone marrow makes. ??? Hemoglobin electrophoresis. This test checks for problemswith your hemoglobin in RBCs. ??? Lactate dehydrogenase (LDH) and haptoglobin levels. These tests check the amount of substances in your blood called LDH and haptoglobin. Both LDH and haptoglobin levels can be abnormal with a type of anemia that destroys red blood cells (hemolytic anemia). ??? Bone marrow biopsy. This test evaluates the bone marrow where RBCs are made. ?? How is anemia treated? Treatment for anemia is based on the type of anemia, its cause, and the severity of your symptoms. Treatments may include: ??? Diet changes. This includes increasing the amount of certain nutrients in your diet, such as iron, vitamin B-12, or folate. Your healthcare provider may also prescribe nutrient supplements. ??? Medicines. Certain medicines treat the cause of your anemia. Others help buildnew RBCs or ease symptoms. If a medicine is the cause of your anemia, you may need to stop or change it. ??? Blood transfusions. Replacing some of your blood can increase the number of healthy RBCs in your body. ??? Surgery. In some cases, your healthcare provider may do surgery to treat the underlying cause of anemia. If you need surgery, your healthcare provider will explain the procedure and outline the risks and benefits for you. ?? What are the long-term concerns? If you have a certain type of anemia, you can expect a full recovery after treatment. If you have other types of anemia (especially a type you're born with), you'll need to manage it for life. Your healthcare provider can tell you more. ?? Last Reviewed Date: 2021 ?? [id number] The [employer]. All rights reserved. This information is not intended as a substitute for professional medical care. Always follow your healthcare professional's instructions. ?? Patient Care team information Care Team Personnel Name: Saima Clifton RN Position: Sheryl RN Member Role: Primary Care Nurse Name: Anabel PAPPAS, Cristino Saucedo Position: [facility] Non Med Staff MD Member Role: PCP Address: Address: [address] [place] [address] [address] Name: Edgar FREED Attending Position: [facility] NATE Medicine Name: Anna Bernal Position: [facility] Member Role: Rhythmic Gymnastics Coach Name: Aiyana Costello RN Position: [facility] ED RN W/OE and Tasks Member Role: Patient Care Provider
--- NOTE | 2023-10-15 14:52 | ED.GENADULT ---
HPI - General Adult General Chief complaint: General Medical Stated complaint: SLEEPY AT LUNCH,? S HIGH BP FROM SNF PER EMS Time Seen by Provider: 10/15/23 14:20 Source: patient, EMS and old records reviewed Mode of arrival: EMS Limitations: no limitations History of Present Illness HPI narrative: 88-year-old male [facility], with pertinent past medical history of essential hypertension, TIA, CAD, Hypercholesteremia patient had episode feeling cold and chills patient was feeling tired and decided to take a nap at lunchtime nurse thought that the patient was unresponsive, patient recall the whole event. In the emergency department patient is able to give a full story patient has no symptoms at the current time. Related Data Home Medications ?Medication ?Instructions ?Recorded ?Confirmed atorvastatin 80 mg tablet 80 mg PO BEDTIME 08/18/23 08/29/23 vitamin E 268 mg (400 unit) capsule 268 mg PO DAILY 08/18/23 08/29/23 Saccharomyces boulardii 10 billion 10,000 mmu cells PO BID 08/29/23 08/29/23 cell capsule acetaminophen 325 mg tablet 650 mg PO Q4H PRN Fever Or Pain 08/29/23 08/29/23 bisacodyl 10 mg rectal suppository 10 mg WA DAILY PRN Constipation 08/29/23 08/29/23 calcium carbonate 500 mg-vitamin 0.5 tab PO DAILY 08/29/23 08/29/23 D3 10 mcg (400 unit) tablet (Calcium 500 + D) magnesium hydroxide 2,400 mg/10 mL 30 ml PO DAILY PRN Constipation 08/29/23 08/29/23 oral suspension (Milk Of Magnesia Concentrated) melatonin 3 mg tablet 6 mg PO BEDTIME PRN Sleep 08/29/23 08/29/23 multivitamin 1 tab PO DAILY 08/29/23 08/29/23 sodium phosphates 19 gram-7 118 ml WA DAILY PRN Constipation 08/29/23 08/29/23 gram/118 mL enema (Fleet Enema) Previous Rx's ?Medication ?Instructions ?Recorded aspirin 81 mg tablet,delayed 81 mg PO DAILY #0 tabs 06/03/23 release amlodipine 5 mg tablet 2.5 mg PO DAILY #30 tabs 08/31/23 Allergies Allergy/AdvReac Type Severity Reaction Status Date / Time No Known Allergies Allergy Verified 10/15/23 14:18 [No Known Allergies*] Review of Systems Review of Systems: All other systems are reviewed and are negative Constitutional: Reports as per HPI and Reports no additional constitutional complaints Eyes: Reports as per HPI and Reports no additional eye complaints Reports system reviewed and no additional complaints, except as documented Cardiovascular: Reports as per HPI and Reports no additional cardiovascular complaints Respiratory: Reports as per HPI and Reports no additional respiratory complaints Gastrointestinal: Reports as per HPI and Reports no additional gastrointestinal complaints Genitourinary: Reports no additional female genitourinary complaints Musculoskeletal: Reports no additional musculoskeletal complaints Skin/Breast: Reports system reviewed and no additional complaints, except as docu Psychiatric: Reports no additional psychiatric complaints Endocrine: Reports no additional endocrine complaints Hematologic/Lymphatic: Reports no additional hematologic/lymphatic complaints Allergic/Immunologic: Reports no additional allergic/immunologic complaints Reports system reviewed and no additional complaints, except as documented and Reports Abnormal speech present [facility] Past Medical History Medical History Abnormal CT scan Inguinal hernia with strangulation TIA (transient ischemic attack) Hypercholesterolemia Hypertension Surgical History History of right inguinal hernia repair Social History Social History Household Members: Other Housing: Correction Housing Other:: From [facility] Do you presently have visiting nurse or other home services: Yes Unable to assess alcohol history related to: Unknown Alcohol intake: former Patient Tobacco Use Status: Never used Tobacco Smoked in Last 30 Days: No e-Cigarette/Vaping Use: Never Used Second Hand Smoke Exposure: No Use of substances other than those prescribed or required for medical reasons: No Advance Directives: Yes Advance Directives on File: Yes Advance Directives Date on File: 09/17/22 Do you have a plan to hurt others: No Plan service: Yes Current occupational status: retired Physical Exam ED Vital Signs: Vital Signs - 24 hr 10/15/23 14:14 10/15/23 15:27 Temperature 97.7 F Pulse Rate 70 70 Respiratory Rate 18 18 Blood Pressure 161/75 H 159/78 H Pulse Oximetry 99 96 Oxygen Delivery Method Room Air Room Air BMI result Body Mass Index 22.0 Vital signs have been reviewed and appear to be correct. Blood pressure elevated. Heart rate normal. Respiratory rate normal. Temperature normal. Oxygen saturation normal. Appearance: Alert. Oriented X3. No acute distress. Head: Normal external exam. Normocephalic. Atraumatic. No Mckeon signs noted. No raccoon eyes noted Eyes: PERRLA. EOMI. Conjunctiva and sclera normal. Eyelids normal. ENT: TM's Normal. Pharynx normal. Uvula midline. Moist mucous membranes. No trismus noted. No drooling noted. No muffled voice noted. Neck: Normal inspection. Neck supple. FROM. No adenopathy. Thyroid Normal. No meningeal signs. No neck mass noted. CVS: Normal heart rate and rhythm. Heart sound normal. No murmurs noted. Pulses normal throughout. Respiratory: No respiratory distress. Painless inspiration. Breath sounds normal. No wheezes/rales/rhonchi noted. Chest nontender. No accessory muscle usage noted or decreased air movement noted. Abdomen: Soft and nontender. Bowel sounds normal in all 4 quadrants. No distention noted. No organomegaly noted. No visible injury noted. Back: No CVA tenderness. Full range of motion noted. Skin: Skin warm and dry. Normal skin color. Normal skin turgor. No rashes/lesions/lacerations noted. Extremities: No lower extremity edema. Extremities exhibit normal range of motion. Extremities nontender. Neuro: Oriented X 3. Cranial nerve exam: II-XII are grossly intact No motor deficit. No sensory deficit. Reflexes normal. Course Reevaluation(s) Reevaluation #1: 88-year-old male brought in for evaluation of feeling fatigued and had a nap at lunchtime nurses thought that he was not responsive. Labs is unrevealing except for a slight left shift on the CBC, UA is pending signed out to to check. Time: 16:04 Medical Decision Making Differential Diagnosis Differential Diagnoses: The differential diagnosis associated with the presentation includes ( UTI, pneumonia, sepsis, pneumothorax, pleural effusion, electrolyte derangement, severe anemia, ACS, intracranial pathology.) Admission/Observation Consideration of admission/observation: Escalation of care including admission/observation considered Lab Data MDM Lab Attestation statement: I reviewed the patient's lab results. 10/15/23 15:02 10/15/23 15:02 Labs: Lab Results 05/04/24 Range/Units 15:02 WBC 9.9 (4.8-10.8) X10*3/uL RBC 3.04 L (4.60-5.80) X10*6/uL Hgb 8.5 L (14.0-18.0) g/dl Hct 26.5 L (42.0-52.0) % MCV 87.2 (80.0-98.0) fL MCH 28.0 (27.0-33.0) pg MCHC 32.1 (31.0-36.0) g/dl RDW 19.1 H (11.0-16.0) % Plt Count 461 H D (160-400) X10*3/uL MPV 9.9 (9.4-12.4) fL Immature Gran % (Auto) 1.0 H (0.0-0.4) % Neut % (Auto) 69.1 (45-73) % Lymph % (Auto) 13.1 L (20-40) % Clay % (Auto) 11.5 H (2-11) % Eos % (Auto) 4.8 H (0-4) % Baso % (Auto) 0.5 (0-2) % Lymph # (Auto) 1.3 (1.2-4.9) X10*3/uL Clay # (Auto) 1.1 (0.1-1.2) X10*3/uL Eos # (Auto) 0.5 H (0.0-0.4) X10*3/uL Baso # (Auto) 0.1 (0.0-0.2) X10*3/uL Abs Immat Gran (auto) 0.10 H (0.00-0.03) X10*3/uL Absolute Neuts (auto) 6.8 (2.0-8.3) x10*3/uL Absolute Nucleated RBC 0.000 (0.0-0.012) X10*3/uL Nucleated RBC % (auto) 0.0 (0.0-0.2) /100WBC Sodium 136 (135-145) mmol/L Potassium 4.2 (3.3-5.1) mmol/L Chloride 101 (96-108) mmol/L Carbon Dioxide 25 (22-29) mmol/L Anion Gap 14 (12-20) BUN 21 H (9-16) mg/dL Creatinine 1.28 (0.5-1.4) mg/dL Estim Creat Clear Calc 37.7 Estimated GFR 53 Random Glucose 117 H (60-115) mg/dL Calcium 9.6 (8.4-10.2) mg/dL Total Bilirubin 0.2 (0.0-1.0) mg/dL Direct Bilirubin < 0.2 (0.0-0.5) mg/dL AST 19 (5-37) U/L ALT 14 (0-40) U/L Alkaline Phosphatase 79 (39-117) U/L Troponin I High Sens 9.1 (<3.5-35.0) ng/L B-Natriuretic Peptide 306 H (<100) pg/mL Total Protein 7.1 (6.5-8.0) g/dL Albumin 3.6 (3.5-5.0) g/dL Lipase 50 (8-78) U/L Independent Interpretation I performed an independent interpretation of an: Plain X-Ray ( Chest:Low lung volumes and bibasilar subsegmental atelectasis. ) and CT Scan ( Head: No acute finding.) Radiology Impression Discussion of test interpretation with radiology: I have reviewed the radiologist's reading. Discharge Plan Discharge Clinical Impression: Fatigue, Episode of unresponsiveness Patient Disposition: Still a Patient Prescriptions: No Action atorvastatin 80 mg Tablet 80 mg PO BEDTIME vitamin E 268 mg (400 unit) Capsule 268 mg PO DAILY aspirin 81 mg Tablet,Delayed Release (Dr/Ec) 81 mg PO DAILY Qty: 0 0RF multivitamin Tablet 1 tab PO DAILY acetaminophen 325 mg Tablet 650 mg PO Q4H PRN (Reason: Fever Or Pain) melatonin 3 mg Tablet 6 mg PO BEDTIME PRN (Reason: Sleep) bisacodyl 10 mg Suppository 10 mg WA DAILY PRN (Reason: Constipation) Rx Instructions: use if M.O.M infective Fleet Enema 19-7 gram/118 mL Enema 118 ml WA DAILY PRN (Reason: Constipation) Rx Instructions: use if Bisacodyl is ineffective magnesium hydroxide [Milk Of Magnesia Concentrated] 2,400 mg/10 mL Suspension 30 ml PO DAILY PRN (Reason: Constipation) Rx Instructions: use if no BM in 3 days calcium carbonate-vitamin D3 [Calcium 500 + D] 500 mg-10 mcg (400 unit) Tablet 0.5 tab PO DAILY Saccharomyces boulardii 10 billion cell Capsule 10,000 mmu cells PO BID amlodipine 5 mg Tablet 2.5 mg PO DAILY Qty: 30 0RF Protocol: Hold for SBP< HOLD for SBP < : 90 Print Language: Slovenian
[2023-10-15 15:05] LABS: MANUAL DIFF FLAG NO
[2023-10-15 15:08] LABS: Basophils Absolute Auto 0.1 X10*3/uL (0.0-0.2); Basophils Percent Auto 0.5 % (0-2); Eosinophils Absolute Auto 0.5 X10*3/uL (0.0-0.4); Eosinophils Percent Auto 4.8 % (0-4); Hematocrit 26.5 % (42.0-52.0); Hemoglobin 8.5 g/dl (14.0-18.0); Lymphocytes Absolute Auto 1.3 X10*3/uL (1.2-4.9); Lymphocytes Percent Auto 13.1 % (20-40); Mean Corpuscular HGB Conc 32.1 g/dl (31.0-36.0); Mean Corpuscular Volume 87.2 fL (80.0-98.0); Mean Platelet Volume 9.9 fL (9.4-12.4); Monocytes Absolute Auto 1.1 X10*3/uL (0.1-1.2); Monocytes Percent Auto 11.5 % (2-11); Neutrophils Absolute Auto 6.8 x10*3/uL (2.0-8.3); Neutrophils Percent Auto 69.1 % (45-73); Platelet Count 461 X10*3/uL (160-400); Red Blood Count 3.04 X10*6/uL (4.60-5.80); Red Cell Distribution Width 19.1 % (11.0-16.0); White Blood Count 9.9 X10*3/uL (4.8-10.8)
[2023-10-15 15:23] LABS: Alanine Aminotransferase 14 U/L (0-40); Albumin Level 3.6 g/dL (3.5-5.0); Alkaline Phosphatase 79 U/L (39-117); Anion Gap 14 (12-20); Aspartate Amino Transferase 19 U/L (5-37); Bilirubin Direct < 0.2 mg/dL (0.0-0.5); Bilirubin Total 0.2 mg/dL (0.0-1.0); Blood Urea Nitrogen 21 mg/dL (9-16); Calcium 9.6 mg/dL (8.4-10.2); Carbon Dioxide 25 mmol/L (22-29); Chloride 101 mmol/L (96-108); Creatinine Clr Calc Pharmacy 37.7; Estimated Glomerular Filt Rate 53; Glucose Random 117 mg/dL (60-115); Lipase 50 U/L (8-78); Potassium 4.2 mmol/L (3.3-5.1); Sodium 136 mmol/L (135-145); Total Protein 7.1 g/dL (6.5-8.0)
[2023-10-15 15:27] VITALS: BP 159/78; PULSE 70; RESP 18; O2SAT 96
[2023-10-15 15:28] LABS: B Type Natriuretic Peptide 306 pg/mL (<100)
--- NOTE | 2023-10-15 15:29 | PC.NURSE ---
Pt presents to ED via EMS from [facility]. EMS reports staff called due to pt having an episode of unresponsiveness in the dining cantu and his BP being hypertensive. No interventions by EMS, vitals stable. Pt is alert and answering all questions appropriately, breathing even and unlabored, skin slightly pale. Pt reports he remembers all events, no LOC. Pt reports he felt dizzy, sweaty with chills and rested his head down. Pt denies any CP, SOB, nausea, diarrhea, or any pain. Pt on bedside ekg monitor, NSR. VSS. Pt noted to have covered wound on buttocks, being treated with ABX at correction.
[2023-10-15 15:31] LABS: Troponin-I High Sensitivity 9.1 ng/L (<3.5-35.0)
[2023-10-15 16:38] LABS: Influenza A PCR NEGATIVE (Negative); Influenza B PCR NEGATIVE (Negative); Resp Syncy Virus RNA Qual PCR NEGATIVE (Negative); SARS COV2 PCR INHOUSE NEGATIVE (Negative)
[2023-10-15 17:43] VITALS: BP 156/70; PULSE 66; RESP 15; O2SAT 100
[2023-10-15 18:16] LABS: Appearance Urine Turbid; Color Urine Yellow; Glucose Urine UA Negative (Negative); Leukocyte Esterase Urine Large (3+) (Negative); Nitrite Urine Negative (Negative); Specific Gravity - Urine 1.015 (1.005-1.025); UMIC TRIGGER UACC YES; Urine Blood Negative (Negative); Urine Ketones Negative (Negative); Urine Protein Trace mg/dL (Neg-Trace)
[2023-10-15 18:27] LABS: Bacteria Urine None Seen (None Seen); Other Crystals Urine Present; Squamous Epithelial Cell Urine 0-2 /HPF (0-2); UACC Culture Trigger YES; WBC Urine >50 /HPF (0-5)
[2023-10-15 18:36] LABS: RBC Urine >20 /HPF (0-2)
[2023-10-15 18:42] VITALS: BP 155/74; PULSE 66; RESP 13; TEMP 36.4; O2SAT 99
[2023-10-15] MEDS: levoFLOXacin 500 MG TABLET PO (19:16)
[2023-10-15 21:31] VITALS: BP 155/74; PULSE 66; RESP 13; TEMP 36.4; O2SAT 99
== END 2023-10-15 21:33 | disposition home or self-care (01) ==
PROVIDERS: Emergency Medicine; Emergency Provider Emergency Medicine Emergency Medical Services
DX: N39.0 Urinary tract infection, site not specified (principal); R40.4 Transient alteration of awareness; R53.83 Other fatigue; R42 Dizziness and giddiness; R61 Generalized hyperhidrosis; I10 Essential (primary) hypertension; E78.00 Pure hypercholesterolemia, unspecified; Z86.73 Personal history of transient ischemic attack (TIA), and cerebral infarction without residual deficits; Z79.899 Other long term (current) drug therapy; Z79.02 Long term (current) use of antithrombotics/antiplatelets; Z03.818 Encounter for observation for suspected exposure to other biological agents ruled out
CPT/HCPCS: 0241U; 36415; 51701; 70450; 71045; 80048; 80076; 81001; 83690; 83880; 84484; 85025; 87086; 87088; 87186; 93005; 99285

== ENCOUNTER → 2023-10-15 14:21 | Outpatient (BNV) | payer OTHER, SELFPAY | PROVIDERS: Emergency Provider Emergency Medicine Emergency Medical Services; Visit Provider Internal Medicine | DX: R94.31 Abnormal electrocardiogram [ECG] [EKG] (principal) | CPT/HCPCS: 93010 ==

== ENCOUNTER 2024-08-20 11:02 | Inpatient (IN) | payer OTHER, SELFPAY ==
--- NOTE | ~2024-08-20 | CT_ITS ---
EXAMINATION: CT ABDOMEN PELVIS WITHOUT IV CONTRAST HISTORY: abdominal pain COMPARISON: Comparison is made with the prior examination dated 08/18/2023. TECHNIQUE: CT scan of the abdomen and pelvis was performed without contrast using standard departmental protocol. Coronal and sagittal reformatted images were generated and reviewed. Oral contrast material was not administered at the request of the referring physician. This CT exam was performed with one or more of the following dose reduction techniques: automated exposure control, adjustment of the mA and/or kV according to patient size, use of iterative reconstruction technique. DLP: 776 mGy-cm FINDINGS: LOWER CHEST: There is mild scarring at the left lung base. The visualized right lung base is clear.. There is no pleural effusion. CARDIOVASCULATURE: The heart is normal in size. There is no pericardial effusion. LIVER: The liver is normal in size and contour. The liver has an unremarkable unenhanced appearance. GALLBLADDER / BILE DUCTS: The gallbladder is unremarkable. There is no intra or extrahepatic biliary ductal dilatation. SPLEEN: The spleen is normal in size and has an unremarkable unenhanced appearance. PANCREAS: The pancreas has an unremarkable unenhanced appearance. ADRENAL GLANDS: Unremarkable. KIDNEYS/RETROPERITONEUM: No renal calculi are identified. There is no hydronephrosis. Again seen are bilateral renal cysts including a 4.6 cm cyst at the upper pole the right kidney, a 3.3 cm cyst at the lower pole the right kidney, 2.0 cm cyst at the upper pole of the left kidney, a 2.5 cm cyst at the lower pole of the left kidney. LYMPH NODES: No retroperitoneal or pelvic lymphadenopathy is identified. VASCULATURE: The abdominal aorta demonstrates atherosclerotic calcification, but is normal in caliber. MESENTERY/PERITONEUM: No free fluid seen is seen. Again noted is a calcified mass at the root of the mesentery measuring approximately 6.4 x 3.3 x 5.9 cm. This demonstrates greater calcification than on the prior study, particularly to the right of midline. 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 There is no free intraperitoneal gas. STOMACH: The stomach is collapsed, limiting evaluation. SMALL BOWEL: The small bowel is normal in caliber. COLON: There is a left inguinal hernia containing the junction of the descending and sigmoid colon. There is no evidence of bowel obstruction. APPENDIX: The appendix is not seen, however no inflammatory changes are seen adjacent to the cecum. URINARY BLADDER/PELVIC ORGANS: The urinary bladder is unremarkable. The prostate is normal in size. BONES / SOFT TISSUES: There is degenerative disc disease of the spine. CT/CT abdomen pelvis wo IV con IMPRESSION: 1. 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 This demonstrates greater calcification than on the prior study. 2. Left internal hernia containing the junction of the descending and sigmoid colon, without evidence of bowel obstruction. Electronically signed by: Luis Manuel Marquez MD 08/20/2024 02:06 PM EDT
--- NOTE | ~2024-08-20 | XR_ITS ---
EXAMINATION: XR CHEST CLINICAL INFORMATION: weakness, AMS COMPARISON: October 15, 2023. TECHNIQUE: Frontal view of the chest was obtained. FINDINGS: Elevated diaphragm bilaterally with gas-filled distended hepatic colonic and splenic colonic flexure's. Linear opacities in the lung bases. No gross consolidation pleural effusion or pneumothorax. Cardiomediastinal silhouette size is normal. Calcified plaque thoracic aorta. Old traumatic deformities with callus formation in the posterior lateral aspect ribs right hemithorax. Osteopenia versus osteoporosis. Multilevel thoracolumbar spondylosis. Degenerative changes in the right shoulder. XR/XR chest 1V IMPRESSION: Concerning acute intra-abdominal process in the correct clinical settings. Subsegmental atelectasis lung bases. Electronically signed by: Rupert Grubbs MD 08/20/2024 12:55 PM EDT
[2024-08-20 11:22] VITALS: BP 137/68; PULSE 82; O2SAT 96
--- NOTE | 2024-08-20 11:22 | ECG_ITS ---
Test Reason : AMS Blood Pressure : */* mmHG Vent. Rate : 84 BPM Atrial Rate : 84 BPM P-R Int : 142 ms QRS Dur : 84 ms QT Int : 368 ms P-R-T Axes : 95 70 167 degrees QTcB Int : 434 ms Sinus rhythm with Premature atrial complexes with Aberrant conduction Cannot rule out Inferior infarct , age undetermined T wave abnormality, consider anterolateral ischemia Abnormal ECG When compared with ECG of 15-Oct-2023 14:27, Non-specific change in ST segment in Inferior leads Nonspecific T wave abnormality now evident in Inferior leads T wave inversion now evident in Anterolateral leads Referred By: Charlotte Bunn Electronically Signed By: HUMBERTO WESTFALL
--- NOTE | 2024-08-20 11:22 | ED_ITS ---
HPI - General Adult General Chief complaint: Abdominal Pain Stated complaint: REMEDIATION TECHNICIAN STS ABD PAIN,DIARRHEA X1W PER EMS Time Seen by Provider: 08/20/24 11:22 Source: patient and EMS Mode of arrival: EMS Limitations: no limitations History of Present Illness ED Provider: Charlotte Bunn PA-C HPI narrative: Patient is an 89 year old male with a past medical history of HTN and NSTEMI who presents to the ED via EMS for abdominal pain and diarrhea. Patient is a poor historian and unable to provide history but able to express generalized pain of the entire abdomen. His REMEDIATION TECHNICIAN from home reported to EMS that the patient has been experiencing abdominal pain and diarrhea for about one week. Unable to obtain further history from patient. Onset (ago): week(s) Location: abdomen Radiation: abdomen Related Data Home Medications ?Medication ?Instructions ?Recorded ?Confirmed atorvastatin 80 mg tablet 80 mg PO BEDTIME 08/18/23 08/29/23 vitamin E 268 mg (400 unit) capsule 268 mg PO DAILY 08/18/23 08/29/23 Saccharomyces boulardii 10 billion 10,000 mmu cells PO BID 08/29/23 08/29/23 cell capsule acetaminophen 325 mg tablet 650 mg PO Q4H PRN Fever Or Pain 08/29/23 08/29/23 bisacodyl 10 mg rectal suppository 10 mg GA DAILY PRN Constipation 08/29/23 08/29/23 calcium 500 mg (as 0.5 tab PO DAILY 08/29/23 08/29/23 carbonate)-vitamin D3 10 mcg (400 unit) tablet (Calcium 500 + D) magnesium hydroxide 2,400 mg/10 mL 30 ml PO DAILY PRN Constipation 08/29/23 08/29/23 oral suspension (Milk Of Magnesia Concentrated) melatonin 3 mg tablet 6 mg PO BEDTIME PRN Sleep 08/29/23 08/29/23 multivitamin 1 tab PO DAILY 08/29/23 08/29/23 sodium phosphates 19 gram-7 118 ml GA DAILY PRN Constipation 08/29/23 08/29/23 gram/118 mL enema (Fleet Enema) Previous Rx's ?Medication ?Instructions ?Recorded aspirin 81 mg tablet,delayed 81 mg PO DAILY #0 tabs 06/03/23 release amlodipine 5 mg tablet 2.5 mg PO DAILY #30 tabs 08/31/23 levofloxacin 500 mg tablet 500 mg PO DAILY 5 days #5 tabs 10/15/23 Allergies Allergy/AdvReac Type Severity Reaction Status Date / Time No Known Allergies Allergy Verified 08/20/24 12:07 [No Known Allergies*] Review of Systems 2 Review of Systems: Yes Unobtainable due to mental status Eyes: Eyes: Reports as per HPI, Denies exophthalmos and Denies loss of vision ENT: Denies dizziness, Denies lip swelling and Denies epistaxis Cardiovascular: Cardiovascular: Reports no additional cardiovascular complaints Respiratory: Respiratory: Denies cough, Denies stridor and Denies wheezing Gastrointestinal: Gastrointestinal: Reports abdominal pain, Reports change in bowel habits, Reports diarrhea and Reports loose stools Genitourinary: Genitourinary: Reports no additional male genitourinary complaints Musculoskeletal: Musculoskeletal: Reports no additional musculoskeletal complaints Neurologic: Reports confusion (pleasantly confused), Denies dizziness and Denies loss of vision Psychiatric: Psychiatric: Reports no additional psychiatric complaints and Reports confusion (pleasantly confused) Endocrine: Endocrine: Reports no additional endocrine complaints Hematologic/Lymphatic: Hematologic/Lymphatic: Reports no additional hematologic/lymphatic complaints Allergic/Immunologic: Allergic/Immunologic: Reports no additional allergic/immunologic complaints, Denies lip swelling and Denies wheezing PMFSH Past Medical History Attestation statement: The following information was validated with the patient. Source: old records reviewed and nursing notes reviewed Medical History Abnormal CT scan Inguinal hernia with strangulation TIA (transient ischemic attack) Hypercholesterolemia Hypertension Surgical History History of right inguinal hernia repair Social History Social History Household Members: Other Housing: Prison Housing Other:: From STR Do you presently have visiting nurse or other home services: Yes Unable to assess alcohol history related to: Unknown Alcohol intake: former Patient Tobacco Use Status: Never used Tobacco e-Cigarette/Vaping Use: Never Used Second Hand Smoke Exposure: No Advance Directives: Yes Advance Directives on File: Yes Advance Directives Date on File: 09/17/22 Do you have a plan to hurt others: No Plan service: Yes Current occupational status: retired Physical Exam ED Vital Signs: Vital Signs - 24 hr 08/20/24 12:06 08/20/24 12:08 Temperature 97.9 F Pulse Rate 84 Respiratory Rate 20 Blood Pressure 141/68 H Pulse Oximetry 85 L 92 Oxygen Delivery Method Room Air Room Air Nasal Cannula Oxygen Flow Rate 2 BMI result Body Mass Index 21.3 Const General: cooperative, no acute distress, alert, awake and confusion (pleasantly confused) Nutritional Appearance: well nourished Orientation/consciousness: oriented to person, oriented to place and confusion (pleasantly confused) Limitations: no limitations HENMT Head: Yes normal to inspection and Yes atraumatic Ears: hearing grossly normal bilaterally and external ears normal General nose exam: Normal external nose present, no nasal discharge noted and no epistaxis Face and sinus: Yes normal facial exam, No abrasion and No laceration Mouth: Normal oral and palatal mucosa present, no drooling and no muffled voice Eyes General: appearance normal, both eyes and all related structures Periorbital: periorbital findings normal Eyelids: Yes eyelids normal Conjunctivae: conjunctivae normal Pupils: Equal, round and reactive pupils present EOM: EOMs intact bilaterally Neck Neck: Yes normal visual inspection, Yes full ROM and Yes no lymphadenopathy Chest Chest palpation & inspection: normal inspection of the chest Resp Effort & Inspection: normal respiratory effort and able to speak in complete sentences Auscultation: clear to auscultation bilaterally Cardio Rhythm: regular rhythm Heart sounds: S1 normal heart sound present, S2 normal heart sound present, no gallops, no murmurs and no rubs GI Inspection: Yes normal to inspection and Yes distended Palpation (GI): Firmness to palpation present (GI) and Tenderness to palpation present (GI) Neuro General: oriented to person, oriented to place, moves all extremities, CN's II- XI intact bilaterally and confusion (pleasantly confused) Cranial nerves: Yes Equal, round and reactive pupils present Cognition (Neuro): normal cognition Extrem General: Yes normal to inspection, Yes full ROM and Yes capillary refill normal Psych Appearance: grossly normal Mental Status: mental status grossly normal Affect: normal affect Attitude: cooperative Thought process: Normal thought process present Thought content: Normal thought content present Insight: Good insight present (Psych) Medications Administered Discontinued Medications Generic Name Dose Route Start Last Admin Trade Name Freq PRN Reason Stop Dose Admin Sodium Chloride 1,000 mls @ 999 mls/hr 08/20/24 13:00 08/20/24 12:52 Ns IV 08/20/24 14:00 999 mls/hr .Q1H1M [facility] Administration Medical Decision Making Medical Decision Making [facility] Narrative: Patient is an 89 year old assigned male at with a history of NSTEMI, anemia, HTN, HLD, and strangulated inguinal hernia s/p bowel resection presenting to the emergency department today with increased confusion, abdominal pain, and diarrhea. Patient's physical exam was as noted in the physical exam portion of this note. Patient is alert and oriented but a poor historian and pleasantly confused. Patient's blood work showed chronic anemia and acute MASSIEL with a BUN of 49 and CR of 2.55. Patient's EKG was unremarkable. Patient's chest x-ray showed a possible intra-abdominal process but no acute cardiopulmonary process. 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 Patient did have an episode of hypoxia down to 84% while in the department for which he was started on 2 liters of oxygen via nasal cannula and rebounded well. Patient's clinical presentation is most consistent with MASSIEL in the setting of diarrhea and hypoxia of unknown origin. Patient's clinical presentation is not consistent with sepsis (@1430). I spoke to the hospitalist team who agreed to admission. I explained my physical exam findings as well as all test results to the patient. I answered all questions asked by the patient. Patient verbalized agreement and understanding with this treatment plan and admission. Differential Diagnosis Differential Diagnoses: The differential diagnosis associated with the presentation includes Norovirus Dehydration MASSIEL Diarrhea Hypoxia Admission/Observation Consideration of admission/observation: Escalation of care including admission/observation considered Patient admitted as noted in the MDM Rationale portion of this note. Consult Healthcare Provider Management of the patient was discussed with: Hospitalist (spoke to the hospitalist team as noted in the MDM Rationale portion of this note.) Lab Data [facility] Lab Attestation statement: I reviewed the patient's lab results. My interpretation of these results are in the MDM Rationale portion of this note. 08/20/24 12:17 08/20/24 12:17 Labs: Lab Results 08/20/24 Range/Units 12:17 WBC 10.6 (4.8-10.8) X10*3/uL RBC 3.36 L (4.60-5.80) X10*6/uL Hgb 9.9 L (14.0-18.0) g/dl Hct 30.3 L (42.0-52.0) % MCV 90.2 (80.0-98.0) fL MCH 29.5 (27.0-33.0) pg MCHC 32.7 (31.0-36.0) g/dl RDW 15.9 (11.0-16.0) % Plt Count 248 D (160-400) X10*3/uL MPV 11.1 (9.4-12.4) fL Immature Gran % (Auto) 0.7 H (0.0-0.4) % Neut % (Auto) 76.0 H (45-73) % Lymph % (Auto) 9.9 L (20-40) % [place] % (Auto) 13.1 H (2-11) % Eos % (Auto) 0.0 (0-4) % Baso % (Auto) 0.3 (0-2) % Lymph # (Auto) 1.1 L (1.2-4.9) X10*3/uL [place] # (Auto) 1.4 H (0.1-1.2) X10*3/uL Eos # (Auto) 0.0 (0.0-0.4) X10*3/uL Baso # (Auto) 0.0 (0.0-0.2) X10*3/uL Abs Immat Gran (auto) 0.07 H (0.00-0.03) X10*3/uL Absolute Neuts (auto) 8.1 (2.0-8.3) x10*3/uL Absolute Nucleated RBC 0.000 (0.0-0.012) X10*3/uL Nucleated RBC % (auto) 0.0 (0.0-0.2) /100WBC Sodium 140 (135-145) mmol/L Potassium 4.6 (3.3-5.1) mmol/L Chloride 107 (96-108) mmol/L Carbon Dioxide 22 (22-29) mmol/L Anion Gap 16 (12-20) BUN 49 H (9-16) mg/dL Creatinine 2.55 H (0.5-1.4) mg/dL Estim Creat Clear Calc 16.9 Estimated GFR 24 Random Glucose 128 H (60-115) mg/dL Lactic Acid 1.7 (0.5-2.0) mmol/L Calcium 8.8 D (8.4-10.2) mg/dL Magnesium 2.1 (1.6-2.6) mg/dL Total Bilirubin 0.5 (0.0-1.0) mg/dL AST 15 (5-37) U/L ALT 9 (0-40) U/L Alkaline Phosphatase 69 (39-117) U/L Ammonia 28 (13-55) umol/L Troponin I High Sens 17.5 D (<3.5-35.0) ng/L Total Protein 6.9 (6.5-8.0) g/dL Albumin 3.4 L (3.5-5.0) g/dL Influenza Type A (PCR) NEGATIVE (Negative) Influenza Type B (PCR) NEGATIVE (Negative) RSV RNA Qual (PCR) NEGATIVE (Negative) SARS-CoV-2 RNA (RT-PCR) NEGATIVE (Negative) Independent Interpretation I performed an independent interpretation of an: EKG, Plain X-Ray and CT Scan Interpretation: My interpretation is in agreement with the radiologist's impression of these imaging studies. L EXAMINATION: XR CHEST CLINICAL INFORMATION: weakness, AMS COMPARISON: October 15, 2023. TECHNIQUE: Frontal view of the chest was obtained. FINDINGS: Elevated diaphragm bilaterally with gas-filled distended hepatic colonic and splenic colonic flexure's. Linear opacities in the lung bases. No gross consolidation pleural effusion or pneumothorax. Cardiomediastinal silhouette size is normal. Calcified plaque thoracic aorta. Old traumatic deformities with callus formation in the posterior lateral aspect ribs right hemithorax. Osteopenia versus osteoporosis. Multilevel thoracolumbar spondylosis. Degenerative changes in the right shoulder. XR/XR chest 1V IMPRESSION: Concerning acute intra-abdominal process in the correct clinical settings. Subsegmental atelectasis lung bases. Electronically signed by: Rupert Grubbs MD 08/20/2024 12:55 PM EDT RP Dictated By: Rupert Canales MD Signed By: Electronically signed by Rupert Aguillon MD 08/20/24 1255 Report Number: [id number]: Total DLP = 776.00 mGy-cm EXAMINATION: CT ABDOMEN PELVIS WITHOUT IV CONTRAST HISTORY: abdominal pain COMPARISON: Comparison is made with the prior examination dated 08/18/2023. TECHNIQUE: CT scan of the abdomen and pelvis was performed without contrast using standard departmental protocol. Coronal and sagittal reformatted images were generated and reviewed. Oral contrast material was not administered at the request of the referring physician. This CT exam was performed with one or more of the following dose reduction techniques: automated exposure control, adjustment of the mA and/or kV according to patient size, use of iterative reconstruction technique. DLP: 776 mGy-cm FINDINGS: LOWER CHEST: There is mild scarring at the left lung base. The visualized right lung base is clear.. There is no pleural effusion. CARDIOVASCULATURE: The heart is normal in size. There is no pericardial effusion. LIVER: The liver is normal in size and contour. The liver has an unremarkable unenhanced appearance. GALLBLADDER / BILE DUCTS: The gallbladder is unremarkable. There is no intra or extrahepatic biliary ductal dilatation. SPLEEN: The spleen is normal in size and has an unremarkable unenhanced appearance. PANCREAS: The pancreas has an unremarkable unenhanced appearance. ADRENAL GLANDS: Unremarkable. KIDNEYS/RETROPERITONEUM: No renal calculi are identified. There is no hydronephrosis. Again seen are bilateral renal cysts including a 4.6 cm cyst at the upper pole the right kidney, a 3.3 cm cyst at the lower pole the right kidney, 2.0 cm cyst at the upper pole of the left kidney, a 2.5 cm cyst at the lower pole of the left kidney. LYMPH NODES: No retroperitoneal or pelvic lymphadenopathy is identified. VASCULATURE: The abdominal aorta demonstrates atherosclerotic calcification, but is normal in caliber. MESENTERY/PERITONEUM: No free fluid seen is seen. Again noted is a calcified mass at the root of the mesentery measuring approximately 6.4 x 3.3 x 5.9 cm. This demonstrates greater calcification than on the prior study, particularly to the right of midline. 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 There is no free intraperitoneal gas. STOMACH: The stomach is collapsed, limiting evaluation. SMALL BOWEL: The small bowel is normal in caliber. COLON: There is a left inguinal hernia containing the junction of the descending and sigmoid colon. There is no evidence of bowel obstruction. APPENDIX: The appendix is not seen, however no inflammatory changes are seen adjacent to the cecum. URINARY BLADDER/PELVIC ORGANS: The urinary bladder is unremarkable. The prostate is normal in size. BONES / SOFT TISSUES: There is degenerative disc disease of the spine. CT/CT abdomen pelvis wo IV con IMPRESSION: 1. 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 This demonstrates greater calcification than on the prior study. 2. Left internal hernia containing the junction of the descending and sigmoid colon, without evidence of bowel obstruction. Electronically signed by: Luis Manuel Marquez MD 08/20/2024 02:06 PM EDT Dictated By: Luis Manuel Marquez MD Signed By: Electronically signed by Luis Manuel Marquez MD 08/20/24 1406 I independently interpreted this EKG and am in agreement with the below findings: Vent. Rate: 84 BPM Atrial Rate: 84 BPM P-R Int: 142 ms QRS Dur: 84 ms QT Int: 368 ms P-R-T Axes: 95 70 167 degrees QTcB Int: 434 ms Sinus rhythm with Premature atrial complexes with Aberrant conduction Cannot rule out Inferior infarct, age undetermined T wave abnormality, consider anterolateral ischemia When compared with ECG of 15-Oct-2023 14:27, Non-specific change in ST segment in Inferior leads Nonspecific T wave abnormality now evident in Inferior leads T wave inversion now evident in Anterolateral leads Referred By: Charlotte Bunn Electronically Signed By: ADAM WESTFALL Dictated By: Adam Westfall MD Signed By: Electronically signed by Adam Westfall MD 08/20/24 1202 Radiology Impression Discussion of test interpretation with radiology: I have reviewed the radiologist's reading. Independent Historian Clinical information obtained from an independent historian. History obtained from or confirmed by: EMS (EMS provided additional history and confirmed the history provided by the patient.) Critical Care Time Critical Care Time Critical Care Time: Yes Total Critical Care Time: 39 Attestation: I spent 39 minutes of Critical Care Time with this patient. This does not include time spent on separately reported billable procedures. Discharge Plan Discharge Clinical Impression: MASSIEL (acute kidney injury), Weakness, Hypoxia, Diarrhea Patient Disposition: Admitted As Inpatient Prescriptions: No Action atorvastatin 80 mg Tablet 80 mg PO BEDTIME vitamin E 268 mg (400 unit) Capsule 268 mg PO DAILY aspirin 81 mg Tablet,Delayed Release (Dr/Ec) 81 mg PO DAILY Qty: 0 0RF multivitamin Tablet 1 tab PO DAILY acetaminophen 325 mg Tablet 650 mg PO Q4H PRN (Reason: Fever Or Pain) melatonin 3 mg Tablet 6 mg PO BEDTIME PRN (Reason: Sleep) bisacodyl 10 mg Suppository 10 mg GA DAILY PRN (Reason: Constipation) Rx Instructions: use if M.O.M infective Fleet Enema 19-7 gram/118 mL Enema 118 ml GA DAILY PRN (Reason: Constipation) Rx Instructions: use if Bisacodyl is ineffective magnesium hydroxide [Milk Of Magnesia Concentrated] 2,400 mg/10 mL Suspension 30 ml PO DAILY PRN (Reason: Constipation) Rx Instructions: use if no BM in 3 days calcium carbonate-vitamin D3 [Calcium 500 + D] 500 mg-10 mcg (400 unit) Tablet 0.5 tab PO DAILY Saccharomyces boulardii 10 billion cell Capsule 10,000 mmu cells PO BID amlodipine 5 mg Tablet 2.5 mg PO DAILY Qty: 30 0RF Protocol: Hold for SBP< HOLD for SBP < : 90 levofloxacin 500 mg tablet 500 mg PO DAILY 5 Days Qty: 5 0RF Print Language: Greek
[2024-08-20 12:06] VITALS: BP 141/68; PULSE 84; RESP 20; TEMP 36.6; O2SAT 85; BMI 21.3
[2024-08-20 12:08] VITALS: O2SAT 92
--- NOTE | 2024-08-20 12:08 | PC.NURSE ---
Patient covered in stool on arrival, cleaned and repositoned for comfort
[2024-08-20 12:26] LABS: MANUAL DIFF FLAG NO
[2024-08-20 12:32] LABS: Basophils Percent Auto 0.3 % (0-2); Hematocrit 30.3 % (42.0-52.0); Hemoglobin 9.9 g/dl (14.0-18.0); Imm Gran Abs Auto 0.07 X10*3/uL (0.00-0.03); Imm Gran Pct Auto 0.7 % (0.0-0.4); Lymphocytes Absolute Auto 1.1 X10*3/uL (1.2-4.9); Lymphocytes Percent Auto 9.9 % (20-40); Mean Corpuscular HGB Conc 32.7 g/dl (31.0-36.0); Mean Corpuscular Hemoglobin 29.5 pg (27.0-33.0); Mean Corpuscular Volume 90.2 fL (80.0-98.0); Mean Platelet Volume 11.1 fL (9.4-12.4); Monocytes Absolute Auto 1.4 X10*3/uL (0.1-1.2); Monocytes Percent Auto 13.1 % (2-11); Neutrophils Absolute Auto 8.1 x10*3/uL (2.0-8.3); Platelet Count 248 X10*3/uL (160-400); Red Blood Count 3.36 X10*6/uL (4.60-5.80); Red Cell Distribution Width 15.9 % (11.0-16.0); White Blood Count 10.6 X10*3/uL (4.8-10.8)
[2024-08-20 12:36] LABS: Ammonia 28 umol/L (13-55)
[2024-08-20 12:43] LABS: Lactic Acid 1.7 mmol/L (0.5-2.0)
[2024-08-20 12:44] LABS: Alanine Aminotransferase 9 U/L (0-40); Albumin Level 3.4 g/dL (3.5-5.0); Alkaline Phosphatase 69 U/L (39-117); Anion Gap 16 (12-20); Aspartate Amino Transferase 15 U/L (5-37); Bilirubin Total 0.5 mg/dL (0.0-1.0); Blood Urea Nitrogen 49 mg/dL (9-16); Calcium 8.8 mg/dL (8.4-10.2); Carbon Dioxide 22 mmol/L (22-29); Chloride 107 mmol/L (96-108); Creatinine Clr Calc Pharmacy 16.9; Estimated Glomerular Filt Rate 24; Glucose Random 128 mg/dL (60-115); Magnesium 2.1 mg/dL (1.6-2.6); Potassium 4.6 mmol/L (3.3-5.1); Sodium 140 mmol/L (135-145); Total Protein 6.9 g/dL (6.5-8.0)
[2024-08-20 12:50] LABS: Troponin-I High Sensitivity 17.5 ng/L (<3.5-35.0)
[2024-08-20] MEDS: 0.9 % Sodium Chloride 1,000 ML 999 ML IV (12:52)
[2024-08-20 13:45] LABS: Influenza A PCR NEGATIVE (Negative); Influenza B PCR NEGATIVE (Negative); Resp Syncy Virus RNA Qual PCR NEGATIVE (Negative); SARS COV2 PCR INHOUSE NEGATIVE (Negative)
--- OUTSIDE RECORDS SUMMARY | 2024-08-20 14:20 | XMS_ITS | Continuity of Care Document ---
Author Name [facility] Organization [facility] Care Team Providers Care Drum Sprayer Name Role Phone [facility] Unavailable Unavailable Problems Combined list of problems from Department of Defense and Veterans Affairs facilities. It does not include entries that were removed or entered in error. Problem Status Onset Date Problem Type Date of Resolution Comments Source Microscopic hematuria Active 024 Condition Jun 14, 2024 Entered By: UBALDO HAMMOND Comment: Evaluation in progress [facility] Pressure injury of buttock Active 023 Condition Mar 15, 2023 Entered By: UBALDO HAMMOND Comment: wound conuslt ordered [facility] Abnormal weight loss Active Condition [facility] Anemia of chronic disease Active Condition [facility] Benign prostatic hyperplasia (SNOMED CT 101740116) Active Condition [facility] CRYSTAL DEPOSIT VITREOUS Active Condition [facility] Essential hypertension (SNOMED CT 31656647) Active Condition [facility] HEARING LOSS NOS Active Condition [facility] Hypercholesterolemia (SNOMED CT 28772636) Active Condition [facility] Occlusion and Stenosis of Carotid Artery, 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 Active Condition [facility] Osteoarthritis Active Condition [facility] PRESBYOPIA Active Condition [facility] REFRACTION DISORDER NOS Active Condition [facility] Whiplash Active Condition Jul 02 Entered By: ALEX LÓPEZ Comment: had been going to Chiropractor dr ogden [facility] Diagnosis: ICD-10-CM Z13.6 Encounter for screening for cardiovascular disorders Active Diagnosis [facility] Diagnosis: ICD-10-CM I10 Essential (primary) hypertension Active Diagnosis [facility] Diagnosis: ICD-10-CM H61.21 Impacted cerumen, right ear Active Diagnosis [facility] Diagnosis: ICD-10-CM Z46.1 Encounter for fitting and adjustment of hearing aid Active Diagnosis [facility] Diagnosis: ICD-10-CM H90.6 Mixed conductive and sensorineural hearing loss, bilateral Active Diagnosis [facility] Diagnosis: ICD-10-CM L89.309 Pressure ulcer of unspecified buttock, unspecified stage Active Diagnosis [facility] Medications Combined list of outpatient medications from Department of Defense and Veterans Affairs facilities.Medications provided include 1) outpatient medications from the last 15 months, and 2) patient-reported medications. Medication Details Route Status Patient Instructions Prescription Expires Prescription Number Last Dispense Date Ordering Provider Order Date Order Qty Source ASPIRIN 81MG TAB,EC TAKE ONE TABLET BY MOUTH ONCE DAILY FOR MYOCARDI AL REINFARC TION PREVENTI ON ORAL 08/05/2024 [id number] ED HAMMOND MILAN D 2023 120 [facility] ATORVASTATI N [place] 80MG TAB TAKE ONE-HALF TABLET BY MOUTH AT BEDTIME FOR HIGH CHOLESTE ROL ORAL ACTIVE 06/15/2025 [id number] 5 ED HAMMOND D 2024 45 [facility] ATORVASTATI N [place] 80MG TAB TAKE ONE-HALF TABLET BY MOUTH AT BEDTIME FOR HIGH CHOLESTE ROL ORAL DISCONT INUED 08/05/2024 [id number] 4 ED HAMMOND MILAN D 2023 45 [facility] CALCIUM 250MG/VITAM IN D 125UNT TAB TAKE ONE TABLET BY MOUTH EVERY DAY ORAL ACTIVE ANGEL HINDS 2005 [facility] CYANOCOBALA MIN 1000MCG TAB TAKE ONE TABLET BY MOUTH ONCE DAILY ORAL ACTIVE 06/15/2025 [id number] 5 ED HAMMOND MILAN D 2024 90 [facility] HYDROCHLORO THIAZIDE 25MG TAB TAKE ONE-HALF TABLET BY MOUTH ONCE DAILY FOR VISIBLE WATER RETENTIO N ORAL ACTIVE 06/15/2025 [id number] 5 ED HAMMOND MILAN D 2024 45 [facility] HYDROCHLORO THIAZIDE 25MG TAB TAKE ONE-HALF TABLET BY MOUTH ONCE DAILY FOR VISIBLE WATER RETENTIO N ORAL DISCONT INUED 08/05/2024 [id number] 4 ED HAMMONDD D 2023 [facility] OTHER CAP/TAB I CAPS oral TWICE DAILY ACTIVE [facility]INDS [facility] VITAMIN E CAP,ORAL TAKE BY MOUTH ORAL ACTIVE AN[facility]EL HINDS [facility] Immunizations Combined list of available immunizations from the Department of Defense and Veterans Affairs facilities. Immunization Series Date Given Administered By Site Reaction Lot Number CVX Code Drug Credit Risk Modeler Status Comments Source COVID-19 (MODERNA), MRNA, LNP-S, PF, 50 MCG/0.5 ML (AGES 12+ YEARS) 1 2024 JOEL GUARDADO E RIGHT DELTO ID [id number] 312 [facility] INFLUENZA, HIGH-DOSE, TRIVALENT, PF 2024 JOEL GUARDADO E LEFT DELTO ID [id number] 135 complet ed [facility] INFLUENZA, HIGH-DOSE, QUADRIVALENT 2022 FELIX MONTEMAYOR LEFT DELTO ID [id number] 197 complet ed [facility] TDAP 2022 FELIX MONTEMAYOR M RIGHT DELTO ID [id number] 115 complet ed [facility] COVID-19 (PFIZER), MRNA, LNP-S, PF, 30 MCG/0.3 ML DOSE 1 2020 208 complet ed [facility] INFLUENZA, SEASONAL, INJECTABLE 2018 141 complet ed [facility] ZOSTER RECOMBINANT 2 2018 187 complet ed [facility] INFLUENZA, SEASONAL, INJECTABLE 2017 141 complet ed Site: Left Deltoid [facility] ZOSTER RECOMBINANT 1 2017 187 complet ed [facility] INFLUENZA, SEASONAL, INJECTABLE 2016 141 complet ed Site: Left Deltoid [facility] FLU,3 YRS (HISTORICAL) 2015 88 complet ed Site: Left Deltoid [facility] FLU,3 YRS (HISTORICAL) 2015 88 complet ed Site: Left Deltoid [facility] PNEUMOCOCCAL CONJUGATE PCV 13 2015 133 complet ed [facility] DTAP, UNSPECIFIED FORMULATION 2012 107 complet ed Site: Left Deltoid [facility] FLU,3 YRS (HISTORICAL) 2012 88 complet ed Site: Left Deltoid [facility] ZOSTER LIVE 2012 121 complet ed [facility] FLU,3 YRS (HISTORICAL) 2012 88 complet ed Site: Right Deltoid [facility] FLU,3 YRS (HISTORICAL) 2010 88 complet ed Site: Left Deltoid [facility] TD(ADULT) UNSPECIFIED FORMULATION 2010 139 complet ed Site: Left Deltoid [facility] TD(ADULT) UNSPECIFIED FORMULATION 2010 139 complet ed 421 N FLU,3 YRS (HISTORICAL) 2009 88 complet ed Site: Left Deltoid [facility] PNEUMOCOCCAL, UNSPECIFIED FORMULATION 2009 RICO LÓPEZ JAWED 109 complet ed [facility] FLU,3 YRS (HISTORICAL) 2008 88 complet ed Site: Right Deltoid [facility] NOVEL INFLUENZA-H1N 1-09, ALL FORMULATIONS 2008 128 complet ed [employer] [facility] FLU,3 YRS (HISTORICAL) 2007 88 complet ed Site: Left Deltoid [facility] FLU,3 YRS (HISTORICAL) 2007 88 complet ed Site: Right Deltoid [facility] FLU,3 YRS (HISTORICAL) 2006 88 complet ed [facility] FLU,3 YRS (HISTORICAL) 2005 CHARITY CALVO 88 complet ed [facility] FLU,3 YRS (HISTORICAL) 2003 SUSAN RICHEY 88 complet ed [facility] TETANUS TOXOID, UNSPECIFIED FORMULATION 1999 SUSAN RICHEY T 112 complet ed [facility] Results Combined list of recent chemistry, hematology and other laboratory results from Department of Defense and Veterans Affairs, ranging from 15 months to all on record, depending upon the facility. Order Name Results Value Reference Range Date Interpretation Specimen Comments Source TSH THYROTROPI N [UNITS/VOL UME] IN SERUM OR PLASMA 3.97 u[IU]/mL 0.35 - 5.00 06/14 Specimen Type: SERUM No comment entered. Ordering Provider: GABRIELLA HAMMOND Report Released Date/Time: Jun 01, 2024 11:12 AM Reporting Lab: [facility] [place] [facility] [address] [facility] [address] Performing Lab: [facility] [address] [facility] [address] [facility] LIPID PANEL FASTING CHOLESTERO L [MASS/VOLU ME] IN SERUM OR PLASMA 206 mg/dL 06/14 H Specimen Type: SERUM No comment entered. Ordering Provider: GABRIELLA HAMMOND Report Released Date/Time: Jun 01, 2024 11:12 AM Reporting Lab: [facility] [place] [facility] [address] [facility] [address] Performing Lab: [facility] [place] [facility] [address] [facility] [address] [facility] LIPID PANEL FASTING TRIGLYCERI DE [MASS/VOLU ME] IN SERUM OR PLASMA 53 mg/dL 0 - 150 06/14 Specimen Type: SERUM No comment entered. Ordering Provider: GABRIELLA HAMMOND Report Released Date/Time: Jun 01, 2024 11:12 AM Reporting Lab: [facility] [place] [facility] [address] [facility] [address] Performing Lab: [facility] [place] [facility] [address] [facility] [address] [facility] LIPID PANEL FASTING CHOLESTERO L IN LDL [MASS/VOLU ME] IN SERUM OR PLASMA BY CALCULACHING N 116 mg/dL 0 - 129 06/14 Specimen Type: SERUM No comment entered. Ordering Provider: GABRIELLA HAMMOND Report Released Date/Time: Jun 01, 2024 11:12 AM Reporting Lab: [facility] [place] [facility] [address] [facility] [address] Performing Lab: [facility] [place] [facility] [address] [facility] [address] [facility] LIPID PANEL FASTING CHOLESTERO L.TOTAL/CH OLESTEROL IN HDL [MASS RATIO] IN SERUM OR PLASMA 2.6 06/14 Specimen Type: SERUM No comment entered. Ordering Provider: GABRIELLA HAMMOND Report Released Date/Time: Jun 01, 2024 11:12 AM Reporting Lab: [facility] [place] [facility] [address] [facility] [address] Performing Lab: [facility] [place] [facility] [address] [facility] [address] [facility] LIPID PANEL FASTING CHOLESTERO L IN HDL [MASS/VOLU ME] IN SERUM OR PLASMA 79 mg/dL 40 - 60 06/14 H Specimen Type: SERUM No comment entered. Ordering Provider: GABRIELLA HAMMOND Report Released Date/Time: Jun 01, 2024 11:12 AM Reporting Lab: [facility] [place] [facility] [address] [facility] [address] Performing Lab: [facility] [place] [facility] [address] [facility] [address] [facility] BASIC METABOLI C PANEL (fasting ) UREA NITROGEN [MASS/VOLU ME] IN SERUM OR PLASMA 25 mg/dL 7 - 25 06/14 Specimen Type: SERUM No comment entered. Ordering Provider: GABRIELLA HAMMOND Report Released Date/Time: Jun 01, 2024 11:12 AM Reporting Lab: [facility] [place] [facility] [address] [facility] [address] Performing Lab: [facility] [place] [address] [address] [facility] BASIC METABOLI C PANEL (fasting ) GLUCOSE [MASS/VOLU ME] IN SERUM OR PLASMA 88 mg/dL 65 - 100 06/14 Specimen Type: SERUM No comment entered. Ordering Provider: GABRIELLA HAMMOND Report Released Date/Time: Jun 01, 2024 11:12 AM Reporting Lab: [facility] [place] [facility] [address] [facility] [address] Performing Lab: [facility] [place] [facility] [address] [facility] [address] [facility] BASIC METABOLI C PANEL (fasting ) SODIUM [MOLES/VOL UME] IN SERUM OR PLASMA 137 mmol/L 135 - 145 06/14 Specimen Type: SERUM No comment entered. Ordering Provider: GABRIELLA HAMMOND Report Released Date/Time: Jun 01, 2024 11:12 AM Reporting Lab: [facility] [place] [facility] [address] [facility] [address] Performing Lab: [facility] [place] [address] [address] [facility] BASIC METABOLI C PANEL (fasting ) POTASSIUM [MOLES/VOL UME] IN SERUM OR PLASMA 4.7 mmol/L 3.5 - 5.0 06/14 Specimen Type: SERUM No comment entered. Ordering Provider: GABRIELLA HAMMOND Report Released Date/Time: Jun 01, 2024 11:12 AM Reporting Lab: [facility] [place] [facility] [address] [facility] [address] Performing Lab: [facility] [address] [facility] BASIC METABOLI C PANEL (fasting ) CHLORIDE [MOLES/VOL UME] IN SERUM OR PLASMA 102 mmol/L 100 - 110 06/14 Specimen Type: SERUM No comment entered. Ordering Provider: GABRIELLA HAMMOND Report Released Date/Time: Jun 01, 2024 11:12 AM Reporting Lab: [facility] [address] Performing Lab: [facility] [address] [facility] BASIC METABOLI C PANEL (fasting ) CARBON DIOXIDE, TOTAL [MOLES/VOL UME] IN SERUM OR PLASMA 26 meq/L - 30 06/14 Specimen Type: SERUM No comment entered. Ordering Provider: GABRIELLA HAMMOND Report Released Date/Time: Jun 01, 2024 11:12 AM Reporting Lab: [facility] [address] Performing Lab: [facility] [address] [address] [facility] BASIC METABOLI C PANEL (fasting ) CREATININE [MASS/VOLU ME] IN SERUM OR PLASMA 1.35 mg/dL 0.50 - 1.40 06/14 Specimen Type: SERUM No comment entered. Ordering Provider: GABRIELLA HAMMOND Report Released Date/Time: Jun 01, 2024 11:12 AM Reporting Lab: [facility] [address] Performing Lab: [facility] [place] [address] [facility] [address] [facility] BASIC METABOLI C PANEL (fasting ) GLOMERULAR FILTRATION RATE/1.73 SQ M.PREDICTE D [VOLUME RATE/AREA] IN SERUM, PLASMA OR BLOOD BY CREATININE -BASED FORMULA (CKD-EPI 2020) 50 mL/min 60 06/14 L Specimen Type: SERUM No comment entered. Ordering Provider: GABRIELLA HAMMOND Report Released Date/Time: Jun 01, 2024 11:12 AM Reporting Lab: [facility] [place] [facility] [address] [facility] [address] Performing Lab: [facility] [place] [facility] [address] [facility] [address] [facility] LIVER FUNCTION PROTEIN [MASS/VOLU ME] IN SERUM OR PLASMA 7.2 g/dL 6.0 - 8.3 06/14 Specimen Type: SERUM No comment entered. Ordering Provider: GABRIELLA HAMMOND Report Released Date/Time: Jun 01, 2024 11:12 AM Reporting Lab: [facility] [place] [facility] [address] [facility] [address] Performing Lab: [facility] [place] [facility] [address] [facility] [address] [facility] LIVER FUNCTION ALBUMIN [MASS/VOLU ME] IN SERUM OR PLASMA 3.8 g/dL 3.5 - 5.0 06/14 Specimen Type: SERUM No comment entered. Ordering Provider: GABRIELLA HAMMOND Report Released Date/Time: Jun 01, 2024 11:12 AM Reporting Lab: [facility] [place] [facility] [address] [facility] [address] Performing Lab: [facility] [place] [facility] [address] [facility] [address] [facility] LIVER FUNCTION ALKALINE PHOSPHATAS E [ENZYMATIC ACTIVITY/V OLUME] IN SERUM OR PLASMA 67 U/L 40 - 150 06/14 Specimen Type: SERUM No comment entered. Ordering Provider: GABRIELLA HAMMOND Report Released Date/Time: Jun 01, 2024 11:12 AM Reporting Lab: [facility] [place] [facility] [address] [facility] [address] Performing Lab: [facility] [place] [facility] [address] [facility] [address] [facility] LIVER FUNCTION ASPARTATE AMINOTRANS FERASE [ENZYMATIC ACTIVITY/V OLUME] IN SERUM OR PLASMA 16 U/L 5 - 34 06/14 Specimen Type: SERUM No comment entered. Ordering Provider: GABRIELLA HAMMOND Report Released Date/Time: Jun 01, 2024 11:12 AM Reporting Lab: [facility] [place] [facility] [address] [facility] [address] Performing Lab: [facility] [place] [facility] [address] [facility] [address] [facility] [facility] LIVER FUNCTION ALANINE AMINOTRANS FERASE [ENZYMATIC ACTIVITY/V OLUME] IN SERUM OR PLASMA 7 U/L 06/14 Specimen Type: SERUM No comment entered. Ordering Provider: GABRIELLA HAMMOND Report Released Date/Time: Jun 01, 2024 11:12 AM Reporting Lab: [facility] [place] [facility] [address] [facility] [address] Performing Lab: [facility] [place] [facility] [address] [facility] [address] [facility] LIVER FUNCTION BILIRUBIN. TOTAL [MASS/VOLU ME] IN SERUM OR PLASMA 0.4 mg/dL 0.2 - 1.2 06/14 Specimen Type: SERUM No comment entered. Ordering Provider: GABRIELLA HAMMOND Report Released Date/Time: Jun 01, 2024 11:12 AM Reporting Lab: [facility] [place] [facility] [address] [facility] [address] Performing Lab: [facility] [place] [facility] [address] [facility] [address] [facility] URINALYS IS CLEAN CATCH COLOR OF URINE Yellow 06/14 Specimen Type: URINE Comment: If Glucose = >500 and Ketones are positive, please alert the Physician. Ordering Provider: GABRIELLA HAMMOND Report Released Date/Time: Jun 01, 2024 11:12 AM Reporting Lab: [facility] [address] [facility] [address] Performing Lab: [facility] [address] [facility] [address] [facility] URINALYS IS CLEAN CATCH APPEARANCE OF URINE Turbid 06/14 Specimen Type: URINE Comment: If Glucose = >500 and Ketones are positive, please alert the Physician. Ordering Provider: GABRIELLA HAMMOND Report Released Date/Time: Jun 01, 2024 11:12 AM Reporting Lab: [facility] [address] [facility] [address] Performing Lab: [facility] [address] [facility] [address] [facility] URINALYS IS CLEAN CATCH GLUCOSE [MASS/VOLU ME] IN URINE Normalmg /dL 06/14 Specimen Type: URINE Comment: If Glucose = >500 and Ketones are positive, please alert the Physician. Ordering Provider: GABRIELLA HAMMOND Report Released Date/Time: Jun 01, 2024 11:12 AM Reporting Lab: [facility] [address] [facility] [address] Performing Lab: [facility] [address] [facility] [address] [facility] URINALYS IS CLEAN CATCH KETONES [MASS/VOLU ME] IN URINE BY TEST STRIP NEGATIVE mg/dL 06/14 Specimen Type: URINE Comment: If Glucose = >500 and Ketones are positive, please alert the Physician. Ordering Provider: GABRIELLA HAMMOND Report Released Date/Time: Jun 01, 2024 11:12 AM Reporting Lab: [facility] [address] [facility] [address] Performing Lab: [facility] [address] [facility] [address] [facility] URINALYS IS CLEAN CATCH ERYTHROCYT ES [PRESENCE] IN URINE SEDIMENT BY LIGHT MICROSCOPY SMALLmg/ dL 06/14 Specimen Type: URINE Comment: If Glucose = >500 and Ketones are positive, please alert the Physician. Ordering Provider: GABRIELLA HAMMOND Report Released Date/Time: Jun 01, 2024 11:12 AM Reporting Lab: [facility] [place] [address] [address] Performing Lab: [facility] [place] [facility] [address] [facility] [address] [facility] URINALYS IS CLEAN CATCH PROTEIN [MASS/VOLU ME] IN URINE BY TEST STRIP 20 mg/dL 06/14 Specimen Type: URINE Comment: If Glucose = >500 and Ketones are positive, please alert the Physician. Ordering Provider: GABRIELLA HAMMOND Report Released Date/Time: Jun 01, 2024 11:12 AM Reporting Lab: [facility] [place] [address] [address] Performing Lab: [facility] [place] [address] [address] [facility] [facility] URINALYS IS CLEAN CATCH NITRITE [PRESENCE] IN URINE POSITIVE mg/dL 06/14 Specimen Type: URINE Comment: If Glucose = >500 and Ketones are positive, please alert the Physician. Ordering Provider: GABRIELLA HAMMOND Report Released Date/Time: Jun 01, 2024 11:12 AM Reporting Lab: [facility] [place] [address] [address] Performing Lab: [facility] [place] [address] [address] [facility] URINALYS IS CLEAN CATCH BILIRUBIN. TOTAL [PRESENCE] IN URINE NEGATIVE mg/dL 06/14 Specimen Type: URINE Comment: If Glucose = >500 and Ketones are positive, please alert the Physician. Ordering Provider: GABRIELLA HAMMOND Report Released Date/Time: Jun 01, 2024 11:12 AM Reporting Lab: [facility] [address] [facility] [address] Performing Lab: [facility] [place] [facility] [address] [facility] [address] [facility] URINALYS IS CLEAN CATCH SPECIFIC GRAVITY OF URINE BY REFRACTOME TRY 1.020 1.016 - 1.022 06/14 Specimen Type: URINE Comment: If Glucose = >500 and Ketones are positive, please alert the Physician. Ordering Provider: GABRIELLA HAMMOND Report Released Date/Time: Jun 01, 2024 11:12 AM Reporting Lab: [facility] [place] [facility] [address] [facility] [address] Performing Lab: [facility] [place] [address] [address] [facility] URINALYS IS CLEAN CATCH PH OF URINE BY TEST STRIP 6.5 5.0 - 9.0 06/14 Specimen Type: URINE Comment: If Glucose = >500 and Ketones are positive, please alert the Physician. Ordering Provider: GABRIELLA HAMMOND Report Released Date/Time: Jun 01, 2024 11:12 AM Reporting Lab: [facility] [place] [address] [address] Performing Lab: [facility] [place] [address] [address] [facility] URINALYS IS CLEAN CATCH UROBILINOG EN [MASS/VOLU ME] IN URINE BY TEST STRIP Normalmg /dL <2.0 - 2.0 06/14 Specimen Type: URINE Comment: If Glucose = >500 and Ketones are positive, please alert the Physician. Ordering Provider: GABRIELLA HAMMOND Report Released Date/Time: Jun 01, 2024 11:12 AM Reporting Lab: [facility] [place] [facility] [address] [facility] [address] Performing Lab: [facility] [place] [address] [address] [facility] URINALYS IS CLEAN CATCH LEUKOCYTE ESTERASE [PRESENCE] IN URINE BY TEST STRIP MODERATE 06/14 Specimen Type: URINE Comment: If Glucose = >500 and Ketones are positive, please alert the Physician. Ordering Provider: GABRIELLA HAMMOND Report Released Date/Time: Jun 01, 2024 11:12 AM Reporting Lab: [facility] [address] [address] Performing Lab: [facility] [address] [facility] [place] PIC AUTOMATE D, URINE LEUKOCYTES [#/AREA] IN URINE SEDIMENT BY MICROSCOPY HIGH POWER FIELD 11-20/[H PF] 0 - 5 06/14 H Specimen Type: URINE Comment: If Glucose = >500 and Ketones are positive, please alert the Physician. Ordering Provider: GABRIELLA HAMMOND Report Released Date/Time: Jun 01, 2024 11:12 AM Reporting Lab: [facility] [facility] [address] Performing Lab: [facility] [address] [facility] [employer] AUTOMATE D, URINE BACTERIA [#/AREA] IN URINE SEDIMENT BY MICROSCOPY HIGH POWER FIELD 2+/[HPF] 06/14 Specimen Type: URINE Comment: If Glucose = >500 and Ketones are positive, please alert the Physician. Ordering Provider: GABRIELLA HAMMOND Report Released Date/Time: Jun 01, 2024 11:12 AM Reporting Lab: [facility] [address] Performing Lab: [facility] [address] [facility] [employer] P[employer] AUTOMATE D, URINE MUCUS [#/AREA] IN URINE SEDIMENT BY MICROSCOPY LOW POWER FIELD FEW/[LPF ] 06/14 Specimen Type: URINE Comment: If Glucose = >500 and Ketones are positive, please alert the Physician. Ordering Provider: GABRIELLA HAMMOND Report Released Date/Time: Jun 01, 2024 11:12 AM Reporting Lab: [facility] [place] [facility] [address] [facility] [address] Performing Lab: [facility] [place] [facility] [address] [facility] [address] [facility] [place] [facility] [employer] AUTOMATE D, URINE ERYTHROCYT ES [#/AREA] IN URINE SEDIMENT BY MICROSCOPY HIGH POWER FIELD 6-10/[HP F] 0 - 3 06/14 H Specimen Type: URINE Comment: If Glucose = >500 and Ketones are positive, please alert the Physician. Ordering Provider: GABRIELLA HAMMOND Report Released Date/Time: Jun 01, 2024 11:12 AM Reporting Lab: [facility] [place] [facility] [address] [facility] [address] Performing Lab: [facility] [place] [facility] [address] [facility] [address] [facility] [place] [facility] [employer] P[employer] AUTOMATE D, URINE EPITHELIAL CELLS.SQUA MOUS [#/AREA] IN URINE SEDIMENT BY MICROSCOPY HIGH POWER FIELD FEW/[HPF ] 06/14 Specimen Type: URINE Comment: If Glucose = >500 and Ketones are positive, please alert the Physician. Ordering Provider: GABRIELLA HAMMOND Report Released Date/Time: Jun 01, 2024 11:12 AM Reporting Lab: [facility] [place] [facility] [address] [facility] [address] Performing Lab: [facility] [place] [facility] [address] [facility] [address] [facility] CBC AND DIFF (AUTO) LEUKOCYTES [#/VOLUME] IN BLOOD BY AUTOMATED COUNT 5.84 10*3/uL 4.50 - 11.00 06/14 Specimen Type: BLOOD No comment entered. Ordering Provider: GABRIELLA HAMMOND Report Released Date/Time: Jun 01, 2024 11:12 AM Reporting Lab: [facility] [place] [facility] [address] [facility] [address] Performing Lab: [facility] [place] [address] [address] [facility] [place] [facility] CBC AND DIFF (AUTO) ERYTHROCYT ES [#/VOLUME] IN BLOOD BY AUTOMATED COUNT 3.11 10*6/uL 4.23 - 5.66 06/14 L Specimen Type: BLOOD No comment entered. Ordering Provider: GABRIELLA HAMMOND Report Released Date/Time: Jun 01, 2024 11:12 AM Reporting Lab: [facility] [place] [address] [address] Performing Lab: [facility] [place] [address] [address] [facility] [place] [facility] CBC AND DIFF (AUTO) HEMOGLOBIN [MASS/VOLU ME] IN BLOOD 9.1 g/dL 12.8 - 17 06/14 L Specimen Type: BLOOD No comment entered. Ordering Provider: GABRIELLA HAMMOND Report Released Date/Time: Jun 01, 2024 11:12 AM Reporting Lab: [facility] [place] [address] [address] Performing Lab: [facility] [place] [address] [address] [facility] [place] [facility] CBC AND DIFF (AUTO) HEMATOCRIT [VOLUME FRACTION] OF BLOOD BY AUTOMATED COUNT 28.4 39.2 - 50.4 06/14 L Specimen Type: BLOOD No comment entered. Ordering Provider: GABRIELLA HAMMOND Report Released Date/Time: Jun 01, 2024 11:12 AM Reporting Lab: [facility] [place] [address] [address] Performing Lab: [facility] [place] [address] [address] [facility] [place] [facility] CBC AND DIFF (AUTO) MCV [ENTITIC VOLUME] BY AUTOMATED COUNT 91.3 fL 82 - 99 06/14 Specimen Type: BLOOD No comment entered. Ordering Provider: GABRIELLA HAMMOND Report Released Date/Time: Jun 01, 2024 11:12 AM Reporting Lab: [facility] [place] [address] [address] Performing Lab: [facility] [place] [facility] [address] [facility] [address] [facility] [place] CBC AND DIFF (AUTO) MCHC [MASS/VOLU ME] BY AUTOMATED COUNT 32.0 g/dL 30.8 - 35.1 06/14 Specimen Type: BLOOD No comment entered. Ordering Provider: GABRIELLA HAMMOND Report Released Date/Time: Jun 01, 2024 11:12 AM Reporting Lab: [facility] [place] [facility] [address] [facility] [address] Performing Lab: [facility] [place] [facility] [address] [facility] [address] [facility] [place] [facility] CBC AND DIFF (AUTO) PLATELETS [#/VOLUME] IN BLOOD BY AUTOMATED COUNT 198 10*3/uL 140 - 360 06/14 Specimen Type: BLOOD No comment entered. Ordering Provider: GABRIELLA HAMMOND Report Released Date/Time: Jun 01, 2024 11:12 AM Reporting Lab: [facility] [place] [facility] [address] [facility] [address] Performing Lab: [facility] [place] [facility] [address] [facility] [address] [facility] [place] [facility] CBC AND DIFF (AUTO) ERYTHROCYT E DISTRIBUTI ON WIDTH [RATIO] BY AUTOMATED COUNT 16.1 12.0 - 16.0 06/14 H Specimen Type: BLOOD No comment entered. Ordering Provider: GABRIELLA HAMMOND Report Released Date/Time: Jun 01, 2024 11:12 AM Reporting Lab: [facility] [place] [facility] [address] [facility] [address] Performing Lab: [facility] [place] [address] [address] [facility] [place] [facility] CBC AND DIFF (AUTO) MONOCYTES [#/VOLUME] IN BLOOD BY AUTOMATED COUNT 0.88 10*3/uL 0.30 - 1.10 06/14 Specimen Type: BLOOD No comment entered. Ordering Provider: GABRIELLA HAMMOND Report Released Date/Time: Jun 01, 2024 11:12 AM Reporting Lab: [facility] [place] [facility] [address] [facility] [address] Performing Lab: [facility] [place] [facility] [address] [facility] [address] [facility] [place] [facility] CBC AND DIFF (AUTO) MCH [ENTITIC MASS] BY AUTOMATED COUNT 29.3 pg 26.2 - 32.6 06/14 Specimen Type: BLOOD No comment entered. Ordering Provider: GABRIELLA HAMMOND Report Released Date/Time: Jun 01, 2024 11:12 AM Reporting Lab: [facility] [place] [facility] [address] [facility] [address] Performing Lab: [facility] [place] [facility] [address] [facility] [address] [facility] [place] [facility] CBC AND DIFF (AUTO) NEUTROPHIL S/100 LEUKOCYTES IN BLOOD BY AUTOMATED COUNT 58.7 43.7 - 75.8 06/14 Specimen Type: BLOOD No comment entered. Ordering Provider: GABRIELLA HAMMOND Report Released Date/Time: Jun 01, 2024 11:12 AM Reporting Lab: [facility] [place] [facility] [address] [facility] [address] Performing Lab: [facility] [place] [facility] [address] [facility] [address] [facility] [place] [facility] CBC AND DIFF (AUTO) LYMPHOCYTE S/100 LEUKOCYTES IN BLOOD BY AUTOMATED COUNT 21.6 14.0 - 42.3 06/14 Specimen Type: BLOOD No comment entered. Ordering Provider: GABRIELLA HAMMOND Report Released Date/Time: Jun 01, 2024 11:12 AM Reporting Lab: [facility] [place] [facility] [address] [facility] [address] Performing Lab: [facility] [place] [facility] [address] [facility] [address] [facility] [place] [facility] CBC AND DIFF (AUTO) MONOCYTES/ 100 LEUKOCYTES IN BLOOD BY AUTOMATED COUNT 15.1 5.1 - 13.7 06/14 H Specimen Type: BLOOD No comment entered. Ordering Provider: GABRIELLA HAMMOND Report Released Date/Time: Jun 01, 2024 11:12 AM Reporting Lab: [facility] [place] [facility] [address] [facility] [address] Performing Lab: [facility] [place] [facility] [address] [facility] [address] [facility] [place] [facility] CBC AND DIFF (AUTO) EOSINOPHIL S/100 LEUKOCYTES IN BLOOD BY AUTOMATED COUNT 3.9 0.4 - 6.8 06/14 Specimen Type: BLOOD No comment entered. Ordering Provider: GABRIELLA HAMMOND Report Released Date/Time: Jun 01, 2024 11:12 AM Reporting Lab: [facility] [place] [facility] [address] [facility] [address] Performing Lab: [facility] [place] [facility] [address] [facility] [address] [facility] [place] [facility] CBC AND DIFF (AUTO) BASOPHILS/ 100 LEUKOCYTES IN BLOOD BY AUTOMATED COUNT 0.5 0.1 - 2.0 06/14 Specimen Type: BLOOD No comment entered. Ordering Provider: GABRIELLA HAMMOND Report Released Date/Time: Jun 01, 2024 11:12 AM Reporting Lab: [facility] [place] [facility] [address] [facility] [address] Performing Lab: [facility] [place] [facility] [address] [facility] [address] [facility] [place] CBC AND DIFF (AUTO) NEUTROPHIL S [#/VOLUME] IN BLOOD BY AUTOMATED COUNT 3.43 10*3/uL 2.20 - 7.60 06/14 Specimen Type: BLOOD No comment entered. Ordering Provider: GABRIELLA HAMMOND Report Released Date/Time: Jun 01, 2024 11:12 AM Reporting Lab: [facility] [place] [facility] [address] [facility] [address] Performing Lab: [facility] [place] [facility] [address] [facility] [address] [facility] [place] [facility] CBC AND DIFF (AUTO) LYMPHOCYTE S [#/VOLUME] IN BLOOD BY AUTOMATED COUNT 1.26 10*3/uL 1.00 - 3.20 06/14 Specimen Type: BLOOD No comment entered. Ordering Provider: GABRIELLA HAMMOND Report Released Date/Time: Jun 01, 2024 11:12 AM Reporting Lab: [facility] [place] [facility] [address] [facility] [address] Performing Lab: [facility] [place] [address] [address] [facility] [place] [facility] CBC AND DIFF (AUTO) EOSINOPHIL S [#/VOLUME] IN BLOOD BY AUTOMATED COUNT 0.23 10*3/uL 0.03 - 0.44 06/14 Specimen Type: BLOOD No comment entered. Ordering Provider: GABRIELLA HAMMOND Report Released Date/Time: Jun 01, 2024 11:12 AM Reporting Lab: [facility] [place] [address] [address] Performing Lab: [facility] [place] [address] [address] [facility] [place] [facility] CBC AND DIFF (AUTO) BASOPHILS [#/VOLUME] IN BLOOD BY AUTOMATED COUNT 0.03 10*3/uL 0.01 - 0.13 06/14 Specimen Type: BLOOD No comment entered. Ordering Provider: GABRIELLA HAMMOND Report Released Date/Time: Jun 01, 2024 11:12 AM Reporting Lab: [facility] [place] [address] [address] Performing Lab: [facility] [place] [address] [address] [facility] [place] [facility] CBC AND DIFF (AUTO) IMMATURE GRANULOCYT ES/100 LEUKOCYTES IN BLOOD BY AUTOMATED COUNT 0.2 0.0 - 0.7 06/14 Specimen Type: BLOOD No comment entered. Ordering Provider: GABRIELLA HAMMOND Report Released Date/Time: Jun 01, 2024 11:12 AM Reporting Lab: [facility] [place] [address] [address] Performing Lab[facility] [place] [facility] [address] [facility] [address] [facility] [place] [facility] CBC AND DIFF (AUTO) IMMATURE GRANULOCYT ES [#/VOLUME] IN BLOOD 0.01 10*3/uL 0.00 - 0.06 06/14 Specimen Type: BLOOD No comment entered. Ordering Provider: GABRIELLA HAMMOND Report Released Date/Time: Jun 01, 2024 11:12 AM Reporting Lab: [facility] [place] [address] [address] Performing Lab: [facility] [place] [address] [address] [facility] [place] [facility] CBC AND DIFF (AUTO) NRBC % 0.0 0.0 - 0.0 06/14 Specimen Type: BLOOD No comment entered. Ordering Provider: GABRIELLA HAMMOND Report Released Date/Time: Jun 01, 2024 11:12 AM Reporting Lab: [facility] [place] [address] [address] Performing Lab: [facility] [place] [address] [address] [facility] [place] [facility] CBC AND DIFF (AUTO) NRBC, ABS 0.00 10*3/uL 0.00 - 0.00 06/14 Specimen Type: BLOOD No comment entered. Ordering Provider: GABRIELLA HAMMOND Report Released Date/Time: Jun 01, 2024 11:12 AM Reporting Lab: [facility] [place] [address] [address] Performing Lab: [facility] [place] [address] [address] [facility] [place] [facility] Vital Signs Combined list of inpatient and outpatient Vital Signs from Department of Defense and Veterans Affairs, ranging from 12 months to all on record, depending upon the facility. Vital Sign Value Date Comments Source SYSTOLIC BLOOD PRESSURE 144 06/14/19 25 09:30:19 [facility] [place] [facility] DIASTOLIC BLOOD PRESSURE 72 025 09:30:19 [facility] [place] PULSE OXIMETRY 100 06/14/2024 09:30:19 [facility] WEIGHT 146 06/14/2024 09:30:19 [facility] BMI 24 kg/m2 06/14/2024 09:30:19 [facility] PAIN 0 06/14/2024 09:30:19 [facility] TEMPERATURE 98 06/14/2024 09:30:19 [facility] PULSE 79 06/14/2024 09:30:19 [facility] RESPIRATION 16 06/14/2024 09:30:19 [facility] SYSTOLIC BLOOD PRESSURE 178 05/17/20 24 10:58:11 [facility] DIASTOLIC BLOOD PRESSURE 98 024 10:58:11 [facility] [place] PULSE OXIMETRY 95 05/17/2024 10:58:11 [facility] WEIGHT 147.4 05/17/2024 10:58:11 [facility] BMI 25 kg/m2 05/17/2024 10:58:11 [facility] PAIN 0 05/17/2024 10:58:11 [facility] TEMPERATURE 98 05/17/2024 10:58:11 [facility] PULSE 81 05/17/2024 10:58:11 [facility] RESPIRATION 18 05/17/2024 10:58:11 [facility] [place] Encounters Combined list of: 1) Encounters from Department of Veterans Affairs facilities going backup to the last 18 months, not all VA inpatient encounters are included; 2) Encounters from the Department of Defense facilities going backup to 280 months. 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 Pressur e ulcer of unspeci fied buttock , unspeci fied stage OLIVIA HAMMOND RD 03/15 [facility] Encounter [id number] 03/17 [facility] OFF/OP EST MAY X REQ PHY/QHP [id number] Diagnos is: ICD-10- CM 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 Pressur e ulcer of unspeci fied buttock , unspeci fied stage PACO THOMAS 03/31 [facility] En[facility] [id number] 06/01 [facility] [id number] 06/04 [facility] En[facility] [id number] GABE,ARM AND 06/04 [facility] En[facility] [id number] 06/07 [facility] En[facility] [id number] 06/10 [facility] En[facility] [id number] 06/24 [facility] [id number] 06/25 [facility] En[facility] [id number] 07/29 [facility] En[facility] [id number] 07/29 [facility] En[facility] [id number] 08/03 [facility] [id number] 08/04 [facility] En[facility] [id number] 08/04 [facility] En[facility] [id number] 08/05 [facility] En[facility] [id number] 08/05 [facility] En[facility] [id number] 08/05 [facility] En[facility] [id number] 08/08 [facility] En[facility] [id number] 08/21 [facility] En[facility] [id number] 08/21 [facility] En[facility] [id number] 08/28 [facility] [id number] 08/30 [facility] En[facility] [id number] 08/31 [facility] [id number] 09/07 [facility] En[facility] [id number] 09/08 [facility] En[facility] [id number] 09/29 [facility] En[facility] [id number] 10/06 [facility] En[facility] [id number] 10/26 [facility] En[facility] [id number] 10/28 [facility] En[facility] [id number] 10/31 [facility] [id number] 11/01 [facility] En[facility] [id number] CAROL DAVIS 11/07 [facility] En[facility] [id number] 11/08 [facility] En[facility] [id number] 11/09 [facility] En[facility] [id number] 11/10 [facility] En[facility] [id number] 11/12 [facility] En[facility] [id number] 11/13 [facility] En[facility] [id number] 11/13 [facility] [id number] 11/16 [facility] En[facility] [id number] 11/17 [facility] [id number] 11/20 [facility] [id number] 11/23 [facility] En[facility] [id number] 11/26 [facility] HEARING AID FITTING/CH ECKING [id number] Diagnos is: ICD-10- CM 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, bilater al SENIOR,ALTON OLE L 03/29 [facility] En[facility] [id number]/02 [facility] CONFORMITY EVALUATION [id number] Diagnos is: ICD-10- CM Z46.1 Encount er for fitting and adjustm ent of hearing aid Cammy MEJÍA 05/17 [facility] OFF/OP CNSLTJ NEW/EST MOD 40 [id number] Diagnos is: ICD-10- CM H61.21 Impacte d cerumen , right ear PAUL MIRANDA 05/17 [facility] Outpatient Encounter [id number] 05/21 [facility] OFFICE O/P EST MOD 30 MIN [id number] Diagnos is: ICD-10- CM I10 Essenti al (primar y) hyperte nsOLIVIA Nuñez RD 06/14 [facility] ELECTROCAR DIOGRAM REPORT [id number] Diagnos is: ICD-10- CM Z13.6 Encount er for screeni ng for cardiov ascular disorde SUSIE Wahl 06/14 [facility] Social History Combined list of available smoking, tobacco, and other social history from [facility] and [facility] facilities. Social History Type Response Date Comment Source Tobacco smoking status [facility] NEVER USED CIGARETTES 06/14/2024 [facility] [place] [facility]/14[facility]2024 [facility] [place] [facility] History of tobacco use [place]-TOBACCO NEVER USED 11[facility]09/2022 [facility] [place] [facility] History of tobacco use [place]-TOBACCO NEVER USED 12/18/2018 [facility] [place] [facility] History of tobacco use LIFETIME NON-TOBACCO USER 10/03/2017 [facility] [place] [facility] History of tobacco use LIFETIME NON-TOBACCO USER 08/30/2016 [facility] [place] [facility] History of tobacco use LIFETIME NON-TOBACCO USER 07/08/2015 [facility] [place] [facility] History of tobacco use CURRENT SMOKER 11/10/2005 smokes 4 cigarettes a day. [facility] History of tobacco use LIFETIME NON-SMOKER 10/01/2004 [facility] [place] [facility] History of tobacco use LIFETIME NON-SMOKER 07/02/2003 [facility] [place] [facility] History of tobacco use LIFETIME NON-SMOKER 04/05/2002 [facility] [place] [facility] History of tobacco use LIFETIME NON-TOBACCO USER 08/24/2001 [facility] [place] [facility] History of tobacco use NON-TOBACCO USER 05[facility]23/2001 [facility] [place] [facility]
--- OUTSIDE RECORDS SUMMARY | 2024-08-20 14:20 | XMS_ITS | Encounter Summary ---
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 This section includes the names of all active insurance providers for the patient. Insurance Provider Type of Coverage Plan Name Start of Policy Coverage End of Policy Coverage Group Number Member ID Insurance Provider's Telephone Number Policy Braga's Name Patient's Relationship to Policy Braga MEDICARE (WNR) MEDICARE (M) PART A Jan 11, 1989 PART A [id number] ALYSSA LAUGHLIN PATIENT MEDICARE (WNR) MEDICARE (M) PART B Jan 11, 1989 PART B [id number] ALYSSA LAUGHLIN PATIENT MEDICARE (WNR) MEDICARE (M) PART B Jan 11, 1989 PART B [id number] [phone] ALYSSA LAUGHLIN PATIENT MEDICARE (WNR) MEDICARE (M) PART A Jan 11, 1989 PART A [id number] [phone] ALYSSA LAUGHLIN PATIENT MEDICARE (WNR) MEDICARE (M) PART A Jan 11, 1989 PART A [id number] ALYSSA LAUGHLIN PATIENT MEDICARE (WNR) MEDICARE (M) PART B Jan 11, 1989 PART B [id number] ALYSSA LAUGHLIN PATIENT MEDICARE (WNR) MEDICARE (M) PART A Jan 11, 1989 PART A [id number] [phone] ALYSSA LAUGHLIN PATIENT MEDICARE (WNR) MEDICARE (M) PART B Jan 11, 1989 PART B [id number] ALYSSA LAUGHLIN PATIENT Selected Encounter This section includes the information on record at [place] for the Encounter. Date/Time Encounter Type Encounter Description Reason Pro vider Source November 02, 2023 10:30 AM Outpatient Encounter PRIMARY CARE/MEDICINE IHE Encounter Template Text not used by [place] Plan of Treatment: Future Appointments (+ 6 months) and Future Tests (+/- 45 days) The Plan of Treatment section includes future care activities for the patient from all [place] treatmentfacilities. This section includes future appointments and future orders which are active, pending or scheduled. Future Appointments This section includes appointments that were scheduled to occur 6 months from the date of the Encounter, up to a maximum of 20 appointments. The data comes from all [place] treatment facilities. Appointment Date/Time Appointment Type Appointme nt Facility Name November 08, 2023 09:00 AM AMBULATORY - MEDICINE [facility] Mar 29, 2024 03:00 PM AMBULATORY - REHAB MEDICIN E [facility] Social History: Smoking Status (Most current) and Tobacco Use (All prior to encounter date) This section includes the most current, and the historical, smoking and tobacco- related health factors from the [place] facility where the Encounter took place. Current Smoking Status This section includes the most current smoking, or tobacco-related health factor, from the [place] facility where the Encounter took place. Date/Time Current Smoking Status Comment Facil ity November 09, 2022 06:51 PM [place]-TO[place]AC[place] NEVER USED [facility] Tobacco Use History This section includes a history of the smoking, or tobacco-related health factors, that were collected on or before the date of the Encounter. The data comes from the [place] facility where the Encounter took place. Date/Time Smoking Status/Tobacco Use Comment F acility Dec 18, 2018 09:55 AM [place]TO[place]ACCO [facility] USED [facility] [place] [facility] Oct 03, 2017 10:29 AM LIFETIME NON-TOBACCO USER [facility] [place] [facility] Aug 30, 2016 10:15 AM LIFETIME NON-TOBACCO USER [facility] [place] [facility] Jul 08, 2015 11:09 AM LIFETIME NON-TOBACCO USER [facility] [place] [facility] Oct 01, 2004 10:31 AM LIFETIME NON-SMOKER [facility] [place] [facility] Jul 02, 2003 11:23 AM LIFETIME NON-SMOKER [facility] [place] [facility] Apr 05, 2002 09:41 AM LIFETIME NON-SMOKER [facility] [place] [facility] Aug 24, 2001 10:25 AM LIFETIME NON-TOBACCO USER [facility] [place] [facility] May 23, 2001 08:55 AM NON-TOBACCO USER [facility] [place] [facility] Encounter Notes: All associated encounter notes This section contains the clinical notes associated to the Encounter. Date/Time Encounter Note(s) Provider Source November 02, 2023 10:54 AM CLERICAL NOTE: LOCAL TITLE: APPOINTMENT NO SHOW STANDARD TITLE: CLERICAL NOTE DATE OF NOTE: NOVEMBER 02, 2023@10:54 ENTRY DATE: NOVEMBER 02, 2023@10:54:10 AUTHOR: AMANDEEP BANEGAS EXP COSIGNER: URGENCY: STATUS: COMPLETED Patient Name: ALYSSA LAUGHLIN Patient SSN: [id number] Date and time of Appointment No show : 11/02/23 10:30 Primary care PATIENT PHONE - PHONE NUMBER [CELLULAR] - NONE FOUND Patient's medical record was reviewed. Follow-up actions were determined and initiated: Please check/complete as applies: [ ]Telephoned Directly [ ]Re-scheduled for next available appt [X]Sent a N0-show letter ( must call for appointment) [ ]Other (Emergent/Overbook, etc.): Additional Comments: None Future Clinic Visits No data available /eddy/ Amandeep Banegas MD Staff Physician Signed: 11/02/2023 10:55 AMANDEEP BANEGAS [place] [facility] [place] [facility]
--- OUTSIDE RECORDS SUMMARY | 2024-08-20 14:20 | XMS_ITS | Encounter Summary ---
Author Name [facility] [place] [facility] [place] Address [address] [place] [address] Care Team Providers Care Edge Finisher Name Role Phone UBALDO HAMMOND Primary Care Provider Unavailabl e Insurance Providers: [...] PART A Jan 11, 1989 PART A [id number] [phone] ALYSSA LAUGHLIN PATIENT MEDICARE (WNR) MEDICARE (M) PART B Jan 11, 1989 PART B [id number] [phone] ALYSSA LAUGHLIN PATIENT MEDICARE (WNR) MEDICARE (M) PART A Jan 11, 1989 PART A [id number] [phone] ALYSSA LAUGHLIN PATIENT MEDICARE (WNR) MEDICARE (M) PART B Jan 11, 1989 PART B [id number] ALYSSA LAUGHLIN PATIENT MEDICARE (WNR) MEDICARE (M) PART A Jan 11, 1989 PART A [id number] ALYSSA LAUGHLIN PATIENT MEDICARE (WNR) MEDICARE (M) PART B Jan 11, 1989 PART B [id number] ALYSSA LAUGHLIN PATIENT MEDICARE (WNR) MEDICARE (M) PART A Jan 11, 1989 PART A [id number] ALYSSA LAUGHLIN PATIENT MEDICARE (WNR) MEDICARE (M) PART B Jan 11, 1989 PART B [id number] [phone] ALYSSA LAUGHLIN PATIENT Selected Encounter This section includes the information on record at [place] for the Encounter. Date/Time Encounter Type Encounter Description Reason Provider Source Mar 29, 2024 03:00 PM HEARING AID FITTING/CHECKIN G AUDIOLOGY ICD-10-CM H90.6 Mixed conductive and sensorineural hearing loss, bilateral EDUARD LOBATO Leeanna Encounter Template Text not used by [place] Assessments - Encounter Diagnoses This section includes the primary and secondary diagnoses documented for the Encounter. Date/Time Primary/Secondary Diagnosis Diagnosis Name Provider Source Mar 29, 2024 05:32 PM PRIMARY Mixed conductive and sensorineural hearing loss, bilateral [facility] Plan of Treatment: Future Appointments (+ 6 months) and Future Tests (+/- 45 days) The Plan of Treatment section includes future care activities for the patient from all [place] treatmentfacilities. This section includes future appointments and future orders which are active, pending or scheduled. Future Appointments This section includes appointments that were scheduled to occur 6 months from the date of the Encounter, up to a maximum of 20 appointments. The data comes from all [place] treatment facilities. Appointment Date/Time Appointment Type Appointme nt Facility Name May 17, 2024 10:00 AM [place] [facility] [place] [facility] May 17, 2024 11:00 AM AMBULATORY - MEDICINE [facility] [place] [facility] Jun 14, 2024 09:30 AM [facility] [place] [facility] Social History: Smoking Status (Most current) and Tobacco Use (All prior to encounter date) This section includes the most current, and the historical, smoking and tobacco- related health factors from the [place] facility where the Encounter took place. Current Smoking Status This section includes the most current smoking, or tobacco-related health factor, from the [place] facility where the Encounter took place. Date/Time Current Smoking Status Comment Yoav ity November 09, 2022 06:51 PM [facility] Tobacco Use History This section includes a history of the smoking, or tobacco-related health factors, that were collected on or before the date of the Encounter. The data comes from the [place] facility where the Encounter took place. Date/Time Smoking Status/Tobacco Use Comment F acility Dec 18, 2018 09:55 AM [place]TOBACCO NEVER USED [place] [facility] [place] [facility] Oct 03, 2017 10:29 AM LIFETIME NON-TOBACCO USER [facility] [place] [facility] Aug 30, 2016 10:15 AM LIFETIME NON-TOBACCO USER [facility] [place] [facility] Jul 08, 2015 11:09 AM LIFETIME NON-TOBACCO USER [place] [facility] [place] [facility] Oct 01, 2004 10:31 AM LIFETIME NON-SMOKER [facility] [place] [facility] Jul 02, 2003 11:23 AM LIFETIME NON-SMOKER [facility] [place] [facility] Apr 05, 2002 09:41 AM LIFETIME NON-SMOKER [facility] [place] [facility] Aug 24, 2001 10:25 AM LIFETIME NON-TOBACCO USER [facility] [place] [facility] May 23, 2001 08:55 AM NON-TOBACCO USER [place] [facility] [place] [facility] Encounter Notes: All associated encounter notes This section contains the clinical notes associated to the Encounter. Date/Time Encounter Note(s) Provider Source Apr 02, 2024 05:22 PM ADDENDUM: LOCAL TITLE: Addendum STANDARD TITLE: ADDENDUM DATE OF NOTE: APR 02, 2024@17:22:19 ENTRY DATE: APR 02, 2024@17:22:20 AUTHOR: EDUARD LOBATO EXP COSIGNER: URGENCY: STATUS: COMPLETED was scheduled to see ENT for cerumen removal on 05/17/24 @ 11:00. Alerting [facility]MSA to please contact [place] to coordinate a hearing aid fitting the same day after he sees ENT. /eddy/ ANAYELI MARQUEZ, [facility]-A STAFF WASTE DISPOSAL ATTENDANT Signed: 04/02/2024 17:23 Receipt Acknowledged By: 04/03/2024 07:57 /eddy/ CORBY MEYERS LEAD QUALITY ASSURANCE ASSOCIATE --- Original Document --- 03/29/24 AUDIOLOGY CLINIC: Dx CODE: H90.3-Sensorineural Hearing Loss, Bilateral APPOINTMENT TYPE: Hearing Re-Evaluation and Hearing Aid Selection BACKGROUND/HISTORY: [place] was seen today for a hearing re-evaluation and hearing aid selection appointment, accompanied by a friend/family member. He was fit on 05/29/20 with FoxyP2 I2400 POWER+ BTE 13s and reports a decline in benefit from these devices. [facility] [place] [facility] due to the [place] of the current devices. His last hearing evaluation was on 05/14/2020 and he believes his hearing has declined somewhat since then. [place] denies tinnitus and vertigo. Medical history includes: Active problems - Computerized Problem List is the source for the followin. Pressure injury of buttock 2. Abnormal weight loss 3. Anemia of chronic disease 4. 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 Osteoarthritis 6. Whiplash 7. Essential hypertension (SNOMED CT 34868787) 8. Benign prostatic hyperplasia (SNOMED CT 292789673) 9. HEARING LOSS NOS 10. Hypercholesterolemia (SNOMED CT 92497506) 11. PRESBYOPIA 12. REFRACTION DISORDER NOS 13. CRYSTAL DEPOSIT VITREOUS ASSESSMENT: Results of today's testing are as follows: Otoscopy revealed occluding cerumen in the right ear and clear EAC in the left ear with erythematous TM noted. With [place]'s verbal consent, cerumen removal was attempted in the right ear with a lighted curette and alligator forceps without incident. Some superficial cerumen was removed, however a large build-up of dry skin and cerumen remains in the right canal. Tympanometry revealed a non- compliant middle-ear system (Type B) in the right ear and reduced middle-ear compliance in the left ear (Type As) Pure tone audiometric testing under headphones revealed a bilateral profound mixed hearing loss. Could not mask bone due to severity of hearing loss. It is possible that the bone conduction thresholds were vibrotactile in nature. Word recognition could not be tested due to hearing loss severity. No significant changes were found when compared to the 2019 audiological evaluation. HEARING AID CHECK: Both hearing aids were cleaned and checked, and found to be in good working order. Microphone covers, tubing, and tone hooks were replaced. A feedback test was performed and hearing aids were reprogrammed to today's audiogram. HEARING AID SELECTION: Different hearing aid options were discussed. He is interested in technology similar to his previous hearing aids. Travolver AI POWER+ BTE 13s were selected and ordered in [place] with silicone shell earmolds using impressions on file. Unable to take new impressions today due to cerumen in right ear. EDUCATION/COUNSELING: The patient was counseled re: today's hearing test results. He demonstrated satisfactory understanding of the education and plan, and was given the opportunity to ask questions throughout today's visit. PLAN: 1. It is recommended [place] follow-up with ENT for right ear cerumen removal. A consult was submitted today. Once he is scheduled with Dr. Tovar for cerumen removal, a same day hearing aid fitting will try to be coordinated for his convenience. 2. Hearing re-evaluation in 3-5 years, or sooner if change in hearing occurs. Patient Education Education provided on the following topics: Hearing test results Education provided to: P Response to Education: VU Wooten ____ Patient P Family F Significant Other SO Verbalizes Understanding VU Returns Demonstration RD Performs Independently PI Lacks Comprehension LC Refused Education RE Not Applicable NA /eddy/ ANAYELI MARQUEZ, CCC-A STAFF WASTE DISPOSAL ATTENDANT Signed: 03/29/2024 17:32 EDUARD LOBATO [place] [facility] [place] [facility] Mar 29, 2024 07:48 AM AUDIOLOGY E & M NOTE: LOCAL TITLE: AUDIOLOGY CLINIC STANDARD TITLE: AUDIOLOGY E & M NOTE DATE OF NOTE: MAR 29, 2024@07:48 ENTRY DATE: MAR 29, 2024@07:48:35 AUTHOR: EDUARD LOBATO EXP COSIGNER: URGENCY: STATUS: COMPLETED AUDIOLOGY CLINIC Has ADDENDA Dx CODE: H90.3-Sensorineural Hearing Loss, Bilateral APPOINTMENT TYPE: Hearing Re-Evaluation and Hearing Aid Selection BACKGROUND/HISTORY: [place] was seen today for a hearing re-evaluation and hearing aid selection appointment, accompanied by a friend/family member. He was fit on 05/29/20 with [employer] IQ I2400 POWER+ BTE 13s and reports a decline in benefit from these devices. He is [place] [facility] [place] [facility] due to the [place] of the current devices. His last hearing evaluation was on 05/14/2020 and he believes his hearing has declined somewhat since then. [place] denies tinnitus and vertigo. Medical history includes: Active problems - Computerized Problem List is the source for the followin. Pressure injury of buttock 2. Abnormal weight loss 3. Anemia of chronic disease 4. 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 Osteoarthritis 6. Whiplash 7. Essential hypertension (SNOMED CT 94020910) 8. Benign prostatic hyperplasia (SNOMED CT 238200338) 9. HEARING LOSS NOS 10. Hypercholesterolemia (SNOMED CT 89340911) 11. PRESBYOPIA 12. REFRACTION DISORDER NOS 13. CRYSTAL DEPOSIT VITREOUS ASSESSMENT: Results of today's testing are as follows: Otoscopy revealed occluding cerumen in the right ear and clear EAC in the left ear with erythematous TM noted. With [place]'s verbal consent, cerumen removal was attempted in the right ear with a lighted curette and alligator forceps without incident. Some superficial cerumen was removed, however a large build-up of dry skin and cerumen remains in the right canal. Tympanometry revealed a non- compliant middle-ear system (Type B) in the right ear and reduced middle-ear compliance in the left ear (Type As) Pure tone audiometric testing under headphones revealed a bilateral profound mixed hearing loss. Could not mask bone due to severity of hearing loss. It is possible that the bone conduction thresholds were vibrotactile in nature. Word recognition could not be tested due to hearing loss severity. No significant changes were found when compared to the 2019 audiological evaluation. HEARING AID CHECK: Both hearing aids were cleaned and checked, and found to be in good working order. Microphone covers, tubing, and tone hooks were replaced. A feedback test was performed and hearing aids were reprogrammed to today's audiogram. HEARING AID SELECTION: Different hearing aid options were discussed. He is interested in technology similar to his previous hearing aids. Travolver AI POWER+ BTE 13s were selected and ordered in [facility] with silicone shell earmolds using impressions on file. Unable to take new impressions today due to cerumen in right ear. EDUCATION/COUNSELING: The patient was counseled re: today's hearing test results. He demonstrated satisfactory understanding of the education and plan, and was given the opportunity to ask questions throughout today's visit. PLAN: 1. It is recommended [place] follow-up with ENT for right ear cerumen removal. A consult was submitted today. Once he is scheduled with Dr. Tovar for cerumen removal, a same day hearing aid fitting will try to be coordinated for his convenience. 2. Hearing re-evaluation in 3-5 years, or sooner if change in hearing occurs. Patient Education Education provided on the following topics: Hearing test results Education provided to: P Response to Education: VU Wooten ____ Patient P Family F Significant Other SO Verbalizes Understanding VU Returns Demonstration RD Performs Independently PI Lacks Comprehension LC Refused Education RE Not Applicable NA /ANAYELI Colón, CCC-A STAFF WASTE DISPOSAL ATTENDANT Signed: 03/29/2024 17:32 04/02/2024 ADDENDUM STATUS: COMPLETED [place] was scheduled to see ENT for cerumen removal on 05/17/24 @ 11:00. Alerting AMSA to please contact [place] to coordinate a hearing aid fitting the same day after he sees ENT. /eddy/ ANAYELI MARQUEZ, [facility]-A STAFF WASTE DISPOSAL ATTENDANT Signed: 04/02/2024 17:23 Receipt Acknowledged By: 04/03/2024 07:57 /eddy/ CORBY MEYERS LEAD QUALITY ASSURANCE ASSOCIATE 04/05/2024 ADDENDUM STATUS: COMPLETED Hearing aids received and certified, upcoming appointment scheduled on 05/17/2024. /eddy/ IKER MIRELES [facility] Guest Relations Associate Signed: 04/05/2024 07:57 EDUARD LOBATO [place] [facility]
--- OUTSIDE RECORDS SUMMARY | 2024-08-20 14:21 | XMS_ITS ---
Author Name [facility] [place] [facility] [facility] [place] Address [address] [place] [address] Care Team Providers Care Network Coordinator Name Role Phone UBALDO HAMMODN Primary Care Provider Unavailabl e Insurance Providers: [...] PART A Jan 11, 1989 PART A [id number] ALYSSA LAUGHLIN PATIENT MEDICARE (WNR) MEDICARE (M) PART B Jan 11, 1989 PART B [id number] [phone] ALYSSA LAUGHLIN PATIENT MEDICARE (WNR) MEDICARE (M) PART A Jan 11, 1989 PART A [id number] ALYSSA LAUGHLIN PATIENT MEDICARE (WNR) MEDICARE (M) PART B Jan 11, 1989 PART B [id number] ALYSSA LAUGHLIN PATIENT MEDICARE (WNR) MEDICARE (M) PART A Jan 11, 1989 PART A [id number] [phone] ALYSSA LAUGHLIN PATIENT MEDICARE (WNR) MEDICARE (M) PART B Jan 11, 1989 PART B [id number] ALYSSA LAUGHLIN PATIENT MEDICARE (WNR) MEDICARE (M) PART A Jan 11, 1989 PART A [id number] ALYSSA LAUGHLIN PATIENT MEDICARE (WNR) MEDICARE (M) PART B Jan 11, 1989 PART B [id number] ALYSSA LAUGHLIN PATIENT Selected Encounter This section includes the information on record at CT for the Encounter. Date/Time Encounter Type Encounter Description Reason Provider Source May 17, 2024 10:00 AM CONFORMITY EVALUATION AUDIOLOGY ICD-10-CM Z46.1 Encounter for fitting and adjustment of hearing aid RAYMOND MEJÍA Leeanna Encounter Template Text not used by CT Assessments - Encounter Diagnoses This section includes the primary and secondary diagnoses documented for the Encounter. Date/Time Primary/Secondary Diagnosis Diagnosis Name Provider Source May 17, 2024 10:52 AM PRIMARY Encounter for fitting and adjustment of hearing aid RAYMOND MEJÍA [facility] [place] [facility] May 17, 2024 10:52 AM SECONDARY Mixed conductive and sensorineural hearing loss, bilateral RAYMOND MEJÍA CT [facility] [place] [facility] Plan of Treatment: Future Appointments (+ 6 months) and Future Tests (+/- 45 days) The Plan of Treatment section includes future care activities for the patient from all CT treatmentfacilities. This section includes future appointments and future orders which are active, pending or scheduled. Future Appointments This section includes appointments that were scheduled to occur 6 months from the date of the Encounter, up to a maximum of 20 appointments. The data comes from all CT treatment facilities. Appointment Date/Time Appointment Type Appointme nt Facility Name Jun 14, 2024 09:30 AM [facility] [place] [facility] Active, Pending, and Scheduled Orders This section includes a listing of several types of active, pending, and scheduled orders, including clinic medications orders, diagnostic test orders, procedure orders and consult orders; where the start date of the order is 45 days before the date of the Encounter or 45 days after the date of theEncounter. The data comes from all CT treatment facilities. Test Date/Time Test Type Test Details Facility Name Jun 14, 2024 12:00 AM Laboratory - Chemistry Order URINALYSIS CLEAN CATCH [facility] [place] [facility] Jun 14, 2024 12:00 AM Laboratory - Microbiology Order URINE CULTURE(MWROX) [facility] Lab Results: +/- 30 days of the encounter This section includes the Chemistry and Hematology Lab Results on record with CT for the patient. Radiology Reports and Pathology Reports are provided separately, in subsequent sections. Lab Results This section contains the Chemistry/Hematology Results that were resulted 30 days before or 30 daysafter the date of the Encounter. Date/Time Source Result Type Result - Unit Interpretation Reference Range Comment Jun 14, 2024 11:19 [facility] TSH Specimen Type: SERUM No comment entered. Ordering Provider: UBALDO HAMMOND Report Released Date/Time: Jun 01, 2024 11:12 AM Reporting Lab[facility] [address] [address] Performing Lab: [facility] [address] [facility] [address] TSH 3.97 u[IU]/mL 0.35-5.00 Jun 14, 2024 11:19 AM [facility] LIPID PANEL FASTING Specimen Type: SERUM No comment entered. Ordering Provider: UBALDO HAMMOND Report Released Date/Time: Jun 01, 2024 11:12 AM Reporting [facility] [address] [facility] [phone] Performing Lab: [facility] [address] [address] CHOLESTEROL 206 mg/dL H TRIGLYCERIDE 53 mg/dL 0-150 LDL calculated 116 mg/dL 0-129 CHOL/HDL 2.6 HDL CHOLESTEROL 79 mg/dL H 40-60 Jun 14, 2024 11:19 AM [facility] LIVER FUNCTION Specimen Type: SERUM No comment entered. Ordering Provider: UBALDO HAMMOND Report Released Date/Time: Jun 01, 2024 11:12 AM Reporting Lab: [address] [address] Performing Lab: [address] [address] PROTEIN,TOTAL 7.2 g/dL 6.0-8.3 ALBUMIN 3.8 g/dL 3.5-5.0 ALKALINE PHOSPHATASE 67 U/L 40-150 AST 16 U/L 5-34 ALT 7 U/L BILIRUBIN, TOTAL 0.4 mg/dL 0.2-1.2 Jun 14, 2024 11:19 AM [facility] BASIC METABOLIC PANEL (fasting) Specimen Type: SERUM No comment entered. Ordering Provider: UBALDO HAMMOND Report Released Date/Time: Jun 01, 2024 11:12 AM Reporting Lab: [address] [address] Performing Lab: [address] [address] UREA NITROGEN 25 mg/dL 7-25 GLUCOSE 88 mg/dL 65-100 SODIUM 137 mmol/L 135-145 POTASSIUM 4.7 mmol/L 3.5-5.0 CHLORIDE 102 mmol/L 100-110 CO2 26 meq/L 20-30 CREATININE, Serum 1.35 mg/dL 0.50-1.40 eGFR(CKD-EPI 2020) 50 mL/min L >60 Jun 14, 2024 11:19 AM [facility] URINALYSIS CLEAN CATCH Specimen Type: URINE Comment: If Glucose = >500 and Ketones are positive, please alert the Physician. Ordering Provider: UBALDO HAMMOND Report Released Date/Time: Jun 01, 2024 11:12 AM Reporting Lab: [address] [address] Performing Lab: [address] [address] UA COLOR Yellow Yellow UA APPEARANCE Turbid Clear UA GLUCOSE Normal mg/dL Negative UA KETONES NEGATIVE mg/dL Negative UA BLOOD SMALL mg/dL Negative UA PROTEIN 20 mg/dL Negative UA NITRITE POSITIVE mg/dL Negative UA BILIRUBIN NEGATIVE mg/dL Negative UA SPECIFIC GRAVITY 1.020 1.016-1.022 UA pH 6.5 5.0-9.0 UA UROBILINOGEN Normal mg/dL <2.0 UA LEUKOCYTE MODERATE Negative Jun 14, 2024 11:19 AM [facility] MICROSCOPIC AUTOMATED, URINE Specimen Type: URINE Comment: If Glucose = >500 and Ketones are positive, please alert the Physician. Ordering Provider: UBALDO HAMMOND Report Released Date/Time: Jun 01, 2024 11:12 AM Reporting Lab: [facility] [address] [address] Performing Lab: [facility] [address] [facility] [address] UA WBC 11-20 /[HPF] H 0-5 UA BACTERIA 2+ /[HPF] NoneObs UA MUCUS FEW /[LPF] Trace UA RBC 6-10 /[HPF] H 0-3 UA SQUAMOUS EPITH FEW /[HPF] Jun 14, 2024 11:19 AM [facility] CBC AND DIFF (AUTO) Specimen Type: BLOOD No comment entered. Ordering Provider: UBALDO HAMMOND Report Released Date/Time: Jun 01, 2024 11:12 AM Reporting Lab: [facility] [address] [facility] [address] Performing Lab: [address] [address] WBC 5.84 10*3/uL 4.50-11.00 RBC 3.11 10*6/uL L 4.23-5.66 HGB 9.1 g/dL L 12.8-17 HCT 28.4 L 39.2-50.4 MCV 91.3 fL 82-99 MCHC 32.0 g/dL 30.8-35.1 PLT 198 10*3/uL 140-360 RDW-CV 16.1 H 12.0-16.0 MONO, ABS 0.88 10*3/uL 0.30-1.10 MCH 29.3 pg 26.2-32.6 NEUT % 58.7 43.7-75.8 LYMPH % 21.6 14.0-42.3 MONO % 15.1 H 5.1-13.7 EOS % 3.9 0.4-6.8 BASO % 0.5 0.1-2.0 NEUT, ABS 3.43 10*3/uL 2.20-7.60 LYMPH, ABS 1.26 10*3/uL 1.00-3.20 EOS, ABS 0.23 10*3/uL 0.03-0.44 BASO, ABS 0.03 10*3/uL 0.01-0.13 IMMATURE GRAN % 0.2 0.0-0.7 IMMATURE GRAN, ABS 0.01 10*3/uL 0.00-0.06 NRBC % 0.0 0.0-0.0 NRBC, ABS 0.00 10*3/uL 0.00-0.00 Vital Signs: All taken on the encounter date This section contains inpatient and outpatient Vital Signs collected on the date of the Encounter. Date/Time Temperature Pulse Blood Pressure Respiratory Rate SP02 Pain Height Weight Body Mass Index Source May 17, 2024 11:15 AM 168/90 [facility] [place] [facility] May 17, 2024 10:58 AM 98 81 178/98 [address] [facility] [place] [facility] Social History: Smoking Status (Most current) and Tobacco Use (All prior to encounter date) This section includes the most current, and the historical, smoking and tobacco- related health factors from the CT facility where the Encounter took place. Current Smoking Status This section includes the most current smoking, or tobacco-related health factor, from the CT facility where the Encounter took place. Date/Time Current Smoking Status Comment Facil ity November 09, 2022 06:51 PM VA-TOBACCO NEVER USED CT [employer] [employer] Tobacco Use History This section includes a history of the smoking, or tobacco-related health factors, that were collected on or before the date of the Encounter. The data comes from the CT facility where the Encounter took place. Date/Time Smoking Status/Tobacco Use Comment F acility Dec 18, 2018 09:55 AM VA-TOBACCO NEVER USED CT [facility] [place] [facility] Oct 03, 2017 10:29 AM LIFETIME NON-TOBACCO USER CT [facility] [place] [facility] Aug 30, 2016 10:15 AM LIFETIME NON-TOBACCO USER CT [facility] [place] [facility] Jul 08, 2015 11:09 AM LIFETIME [facility]-TOBACCO USER [facility] [place] [facility] Oct 01, 2004 10:31 AM LIFETIME NON-SMOKER [facility] [place] [facility] Jul 02, 2003 11:23 AM LIFETIME NON-SMOKER [facility] [place] [facility] Apr 05, 2002 09:41 AM LIFETIME NON-SMOKER [facility] [place] [facility] Aug 24, 2001 10:25 AM LIFETIME NON-TOBACCO USER [facility] [place] [facility] May 23, 2001 08:55 AM NON-TOBACCO USER [facility] [place] [facility] Encounter Notes: All associated encounter notes This section contains the clinical notes associated to the Encounter. Date/Time Encounter Note(s) Provider Source May 17, 2024 08:24 AM AUDIOLOGY E & M NO TE: [facility] TITLE: AUDIOLOGY CLINIC STANDARD TITLE: AUDIOLOGY E & M NOTE DATE OF NOTE: MAY 17, 2024@08:24 ENTRY DATE: MAY 17, 2024@08:24:14 AUTHOR: RAYMOND MEJÍA COSIGNER: URGENCY: STATUS: COMPLETED Diagnosis: mixed hearing loss Hearing Aid Fitting: SUBJECTIVE (S): The was seen for hearing aid fitting and issuance. S/He had previously been evaluated and found to exhibit significant hearing loss for which amplification was recommended. How does the patient/client best learn? verbal instruction, demonstration Does the patient/client have any cultural and restorationism beliefs, emotional barriers, physical or cognitive limitations, and communication barriers which may impact his/her ability to learn? no Desire and motivation to learn? Good OBJECTIVE (O): Physical fit of earmolds/receivers and domes/hearing aids was good. [place] verified comfort. Verification of an appropriate acoustic response was obtained using Real Ear measurements (speech mapping) and NAL- NL1 targets. The reported good subjective benefit. Feedback social work manager was run, at which point gain was reduced by a significant amount automatically across the audiometric frequency range. The software would not allow 'best fit'/target match reset despite repeated trials. Settings were note saved, then performed a swap fit was performed with his previous settings from the [employer]. Settings were similar to initial, reduced from targets and could not be reset. Gain increases caused feedback. Otoscopy revealed a clear left ear canal and some cerumen right ear. Hearing aids were not meeting targets regardless of all troubleshooting. MPO was not exceeding estimated UCL.Settings stored in JYOTI. Explained to his 's cousin, who accompanied him today, that trial with different power BTEs may be warranted. He was advised to call the clinic if feedback/other issues persist so that a set can be ordered for use with the new earmolds. This fashion consultant sales can be alerted. ASSESSMENT (A): The following device(s) was/were issued: Make: Sherrie Model: Evolv AI Power BTEs Serial Numbers: [id number] Battery size: 13 Trial Period ends: 09-27-24 Domes/wax guards, etc.: n/a Earmold Information: clear, silicone, shell Assessment Nurse size/power: n/a Program Settings (VC, Programs, Buttons): VCs disabled Fitting Formula: NAL-NL1 Remote programming: capable Counseling was completed today throughout todays appointment using a standardized curriculum that includes but is not limited to; realistic expectations with amplification in adverse listening environments, acclimatization to own voice and environmental sounds (following real-ear measurements), the importance of consistent use of amplification, proper insertion/removal, care and maintenance (including wax guards/domes if applicable), signal and alerts of devices, and charging/batteries. The was provided the opportunity to practice in office and reports confidence/understanding in all items reviewed. [place] was given written reference materials today. The was informed of and agreed to CT policy on hearing aid issuance: Users are responsible for the maintenance and security of their devices. Determination of need to replace a hearing aid is made by the CT fashion consultant sales. Hearing aids will not be replaced in cases of neglect, abuse, or excessive loss. Items issued are for personal use only. Prognosis for successful hearing aid use is good. PLAN (P): 1. Contact clinic with any problems/concerns. 2. The International Outcome Inventory-Hearing Aids (IOI-SALCEDO) will be mailed to the in four weeks. He/she was asked to mail back to clinic after completion. Patient Education Education provided on the following topics: hearing aid management Education provided to: P, F ('s cousin) Response to Education: VU, RD, PI [place] Patient P Family F Significant Other SO Verbalizes Understanding VU Returns Demonstration RD Performs Independently PI Lacks Comprehension LC Refused Education RE Not Applicable NA /eddy/ Tuan SALDANA, TRAVIS-A STAFF RESIDENCE HALL DIRECTOR Signed: 05/17/2024 12:41 R[facility]D ME[facility]
--- OUTSIDE RECORDS SUMMARY | 2024-08-20 14:21 | XMS_ITS | Encounter Summary ---
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 Name Role Phone UBALDO BANEGAS Primary Care Provider Unavailabl e Insurance [...] PART A Jan 11, 1989 PART A [id number] [phone] ALYSSA LAUGHLIN PATIENT MEDICARE (WNR) MEDICARE (M) PART B Jan 11, 1989 PART B [id number] ALYSSA LAUGHLIN PATIENT MEDICARE (WNR) MEDICARE (M) PART A Jan 11, 1989 PART A [id number] ALYSSA LAUGHLIN PATIENT MEDICARE (WNR) MEDICARE (M) PART B Jan 11, 1989 PART B [id number] ALYSSA LAUGHLIN PATIENT MEDICARE (WNR) MEDICARE (M) PART A Jan 11, 1989 PART A [id number] ALYSSA LAUGHLIN PATIENT MEDICARE (WNR) MEDICARE (M) PART B Jan 11, 1989 PART B [id number] ALYSSA LAUGHLIN PATIENT MEDICARE (WNR) MEDICARE (M) PART A Jan 11, 1989 PART A [id number] ALYSSA LAUGHLIN PATIENT MEDICARE (WNR) MEDICARE (M) PART B Jan 11, 1989 PART B [id number] ALYSSA LAUGHLIN PATIENT Selected Encounter This section includes the information on record at [place] for the Encounter. Date/Time Encounter Type Encounter Description Reason Provider Source Jun 14, 2024 09:30 AM OFFICE O/P EST MOD 30 MIN PRIMARY CARE/MEDICINE ICD-10-CM I10 Essential (primary) hypertension UBALDO BANEGAS IH Encounter Template Text not used by [place] Assessments - Encounter Diagnoses This section includes the primary and secondary diagnoses documented for the Encounter. Date/Time Primary/Secondary Diagnosis Diagnosis Name Provider Source Jun 14, 2024 10:10 AM PRIMARY Essential (primary) hypertension UBALDO BANEGAS [facility] Jun 14, 2024 10:10 AM SECONDARY Encounter for immunization OJEL GUARDADO [facility] Jun 14, 2024 10:10 AM SECONDARY Pure hypercholesterolem ia, unspecified UBALDO BANEGAS [facility] Plan of Treatment: Future Appointments (+ 6 months) and Future Tests (+/- 45 days) The Plan of Treatment section includes future care activities for the patient from all [place] treatmentfacilities. This section includes future appointments and future orders which are active, pending or scheduled. Active, Pending, and Scheduled Orders This section includes a listing of several types of active, pending, and scheduled orders, including clinic medications orders, diagnostic test orders, procedure orders and consult orders; where the start date of the order is 45 days before the date of the Encounter or 45 days after the date of theEncounter. The data comes from all [place] treatment facilities. Test Date/Time Test Type Test Details Facility Name Jun 14, 2024 12:00 AM Laboratory - Chemistry Order URINALYSIS CLEAN CATCH URINE SP [facility] Jun 14, 2024 12:00 AM Laboratory - Microbiology Order URINE CULTURE(MWROX) URINE CLEAN CATCH SP [facility] Lab Results: +/- 30 days of the encounter This section includes the Chemistry and Hematology Lab Results on record with [place] for the patient. Radiology Reports and Pathology Reports are provided separately, in subsequent sections. Lab Results This section contains the Chemistry/Hematology Results that were resulted 30 days before or 30 daysafter the date of the Encounter. Date/Time Source Result Type Result - Unit Interpretation Reference Range Comment Jun 14, 2024 11:19 AM [facility] TSH Specimen Type: SERUM No comment entered. Ordering Provider: UBALDO BANEGAS Report Released Date/Time: Jun 01, 2024 11:12 AM Reporting Lab: [address] [address] Performing Lab: [address] [address] TSH 3.97 u[IU]/mL 0.35-5.00 Jun 14, 2024 11:19 AM [facility] LIPID PANEL FASTING Specimen Type: SERUM No comment entered. Ordering Provider: UBALDO BANEGAS Report Released Date/Time: Jun 01, 2024 11:12 AM Reporting Lab: [facility] [address] [facility] [address] Performing Lab: [address] [address] CHOLESTEROL 206 mg/dL H TRIGLYCERIDE 53 mg/dL 0-150 LDL calculated 116 mg/dL 0-129 CHOL/HDL 2.6 HDL CHOLESTEROL 79 mg/dL H 40-60 Jun 14, 2024 11:19 AM [facility] LIVER FUNCTION Specimen Type: SERUM No comment entered. Ordering Provider: UBALDO BANEGAS Report Released Date/Time: Jun 01, 2024 11:12 AM Reporting Lab: [address] [address] Performing Lab: [address] [address] PROTEIN,TOTAL 7.2 g/dL 6.0-8.3 ALBUMIN 3.8 g/dL 3.5-5.0 ALKALINE PHOSPHATASE 67 U/L 40-150 AST 16 U/L 5-34 ALT 7 U/L BILIRUBIN, TOTAL 0.4 mg/dL 0.2-1.2 Jun 14, 2024 11:19 AM [facility] BASIC METABOLIC PANEL (fasting) Specimen Type: SERUM No comment entered. Ordering Provider: UBALDO BANEGAS Report Released Date/Time: Jun 01, 2024 11:12 AM Reporting Lab: [facility] [address] [facility] [address] Performing Lab: [address] [address] UREA NITROGEN 25 mg/dL 7-25 GLUCOSE 88 mg/dL 65-100 SODIUM 137 mmol/L 135-145 POTASSIUM 4.7 mmol/L 3.5-5.0 CHLORIDE 102 mmol/L 100-110 CO2 26 meq/L 20-30 CREATININE, Serum 1.35 mg/dL 0.50-1.40 eGFR(CKD-EPI 2020) 50 mL/min L >60 Jun 14, 2024 11:19 AM [facility] URINALYSIS CLEAN CATCH Specimen Type: URINE Comment: If Glucose = >500 and Ketones are positive, please alert the Physician. Ordering Provider: UBALDO BANEGAS Report Released Date/Time: Jun 01, 2024 11:12 AM Reporting Lab: [address] [address] Performing Lab: [address] [address] UA COLOR Yellow Yellow UA APPEARANCE Turbid Clear UA GLUCOSE Normal mg/dL Negative UA KETONES NEGATIVE mg/dL Negative UA BLOOD SMALL mg/dL Negative UA PROTEIN 20 mg/dL Negative UA NITRITE POSITIVE mg/dL Negative UA BILIRUBIN NEGATIVE mg/dL Negative UA SPECIFIC GRAVITY 1.020 1.016-1.022 UA pH 6.5 5.0-9.0 UA UROBILINOGEN Normal mg/dL <2.0 UA LEUKOCYTE MODERATE Negative Jun 14, 2024 11:19 AM [facility] MICROSCOPIC AUTOMATED, URINE Specimen Type: URINE Comment: If Glucose = >500 and Ketones are positive, please alert the Physician. Ordering Provider: UBALDO BANEGAS Report Released Date/Time: Jun 01, 2024 11:12 AM Reporting Lab: [facility] [address] [facility] [address] Performing Lab: [facility] [address] [facility] [address] UA WBC 11-20 /[HPF] H 0-5 UA BACTERIA 2+ /[HPF] NoneObs UA MUCUS FEW /[LPF] Trace UA RBC 6-10 /[HPF] H 0-3 UA SQUAMOUS EPITH FEW /[HPF] Jun 14, 2024 11:19 AM [facility] CBC AND DIFF (AUTO) Specimen Type: BLOOD No comment entered. Ordering Provider: UBALDO BANEGAS Report Released Date/Time: Jun 01, 2024 11:12 AM Reporting Lab: [facility] [address] [facility] [address] Performing Lab: [facility] [address] [facility] [address] WBC 5.84 10*3/uL 4.50-11.00 RBC 3.11 10*6/uL [...] Pain Height Weight Body Mass Index Source Jun 14, 2024 10:03 AM 138/70 [place] [facility] [place] [facility] Jun 14, 2024 09:30 AM 98 79 144/72 16 100 0 146 24 [place] [facility] [place] [facility] Immunizations: All administered on the encounter date This section contains immunizations associated to the Encounter. Immunization Series Date Issued Reaction Comments COVID-19 (MODERNA), MRNA, LN P-S, PF, 50 MCG/0.5 ML (AGES 12+ YEARS) 1 Jun 14, 2024 INFLUENZA, HIGH-DOSE, TRIVALENT, PF Jun 14 Social History: Smoking Status (Most current) and Tobacco Use (All prior to encounter date) This section includes the most current, and the historical, smoking and tobacco- related health factors from the [place] facility where the Encounter took place. Current Smoking Status This section includes the most current smoking, or tobacco-related health factor, from the [place] facility where the Encounter took place. Date/Time Current Smoking Status Comment Yoav ity Jun 14, 2024 09:30 AM VA-TOBACCO NEVER U SED [facility] Tobacco Use History This section includes a history of the smoking, or tobacco-related health factors, that were collected on or before the date of the Encounter. The data comes from the [place] facility where the Encounter took place. Date/Time Smoking Status/Tobacco Use Comment F aczeyad Jun 14, 2024 09:30 AM VA-TOBACCO NEVER U SED OTHER TYPE [place] [facility] November 09, 2022 06:51 PM VA-TOBACCO NEVER USED [place] [facility] [place] [facility] Dec 18, 2018 09:55 AM VA-TOBACCO NEVER USED [place] [facility] [place] [facility] Oct 03, 2017 10:29 AM LIFETIME NON-TOBACCO USER [place] [facility] [place] [facility] Aug 30, 2016 10:15 AM LIFETIME NON-TOBACCO USER [place] [facility] [place] [facility] Jul 08, 2015 11:09 AM LIFETIME NON-TOBACCO USER [place] [facility] [place] [facility] Oct 01, 2004 10:31 AM LIFETIME NON-SMOKER [place] [facility] [place] [facility] Jul 02, 2003 11:23 AM LIFETIME NON-SMOKER [place] [facility] [place] [facility] Apr 05, 2002 09:41 AM LIFETIME NON-SMOKER [place] [facility] [place] [facility] Aug 24, 2001 10:25 AM LIFETIME NON-TOBACCO USER [facility] [place] [facility] May 23, 2001 08:55 AM NON-TOBACCO USER [place] [facility] [place] [facility] Encounter Notes: All associated encounter notes This section contains the clinical notes associated to the Encounter. Date/Time Encounter Note(s) Provider Source Jun 14, 2024 04:36 PM PRIMARY CARE TELEPHONE ENCOUNTER NOTE: LOCAL TITLE: TELEPHONE NOTE/PRIMARY CARE STANDARD TITLE: PRIMARY CARE TELEPHONE ENCOUNTER NOTE DATE OF NOTE: JUN 14, 2024@16:36 ENTRY DATE: JUN 14, 2024@16:36:27 AUTHOR: UBALDO BANEGAS EXP COSIGNER: URGENCY: STATUS: COMPLETED Review of recent testing ECG 06-14-24 Normal sinus rhythm at 72 MT 0.12, QRS 0.09, QT 0.[address]-T wave changes No significant change compared with 06-17-2005 TSH (Access): 3.97 GLUCOSE: 88 UREA NITROGEN: 25 SODIUM: 137 POTASSIUM: 4.7 CHLORIDE: 102 CO2: 26 CHOLESTEROL: 206 H PROTEIN,TOTAL: 7.2 ALBUMIN: 3.8 ALKALINE PHOSPHATASE: 67 SGOT: 16 SGPT: 7 TRIGLYCERIDE: 53 LDL CHOL: 116 CHOL/HDL RATIO: 2.6 HDL: 79 H BILIRUBIN,TOT.: 0.4 CREATININE-EGFR: 1.35 eGFR CKD-EPI 2020: 50 L WBC: 5.84 RBC: 3.11 L HGB: 9.1 L HCT: 28.4 L MCV: 91.3 MCHC: 32.0 RDW: 16.1 H PLT: 198 MCH: 29.3 Neut %: 58.7 Lymph %: 21.6 [place] %: 15.1 H Eos %: 3.9 Baso %: 0.5 Neut, Abs: 3.43 Lymph, Abs: 1.26 [place], Abs: 0.88 Eos, Abs: 0.23 Baso, Abs: 0.03 Immature Granulocytes %: 0.2 Immature Granulocytes, Abs: 0.01 NRBC%: 0.0 NRBC#: 0.00 WBC/HPF: 11-20 H RBC/HPF: 6-10 H BACTERIA: 2+ MUCUS: FEW SQUAMOUS EPITHELIAL: FEW Color, Urine (AX 4280): Yellow Appearance, Urine (AX 4280): Turbid Glucose, Urine (AX 4280): Normal Ketones, Urine (AX 4280): NEGATIVE Blood, Urine (AX 4280): SMALL Protein, Urine (AX 4280): 20 Nitrite, Urine (AX 4280): POSITIVE Bilirubin, Urine (AX 4280): NEGATIVE Specific [place], (AX 4280): 1.020 pH, Urine ([id number]): 6.5 Urobilinogen, Urine (AX 4280): Normal Leukocyte Esterase, (AX 4280): MODERATE I discussed above test results with patient and for 10 minutes Assessment and plan: 1. Anemia: Hematology determined this was due to both B12 deficiency and chronic disease from renal insufficiency. Hemoglobin level has improved in the past few years. Plan: Continue B12 supplement 2. Microscopic hematuria: Simultaneous white cells and bacteria suggest contamination. Discussed possibility of infection or cancer. Plan: Repeat urinalysis and culture in the next few weeks. /eddy/ Ubaldo Banegas MD Staff Physician Signed: 06/14/2024 16:42 UBALDO BANEGAS [place] [facility] [place] [facility] Jun 14, 2024 10:50 AM CARDIOLOGY DIAGNOSTIC STUDY CONSULT: LOCAL TITLE: CONSULT REPORT/EKG STANDARD TITLE: CARDIOLOGY DIAGNOSTIC STUDY CONSULT DATE OF NOTE: JUN 14, 2024@10:50 ENTRY DATE: JUN 14, 2024@10:50:54 AUTHOR: KELVIN GUARDADO EXP COSIGNER: URGENCY: STATUS: COMPLETED EKG tracing was performed for diagnosis of htn ordered by completed. /eddy/ KELVIN GUARDADO LPN Signed: 06/14/2024 10:51 RYLIE GUARDADO [place] [facility] [place] [facility] Jun 14, 2024 10:04 AM PHYSICIAN NOTE: LOCAL TITLE: MD NOTE STANDARD TITLE: PHYSICIAN NOTE DATE OF NOTE: JUN 14, 2024@10:04 ENTRY DATE: JUN 14, 2024@10:04:14 AUTHOR: UBALDO BANEGAS EXP COSIGNER: URGENCY: STATUS: COMPLETED Patient Name: ALYSSA LAUGHLIN VITALS: Patient temperature: 98 F [36.7 C] (06/14/2024 09:30) Blood pressure: 138/70 (06/14/2024 10:03) Patient height: 65 in [165.1 cm] (12/03/2014 10:27) Patient weight: 146 lb [66.22 kg] (06/14/2024 09:30) Patient BMI: BMI: 24.3 Patient pulse: 79 (06/14/2024 09:30) Patient respiration: 16 (06/14/2024 09:30) Patient Pulse Oximetry: 100% (06/14/2024 09:30) Pain Ratin (06/14/2024 09:30) Active [facility] Medications: Active Outpatient Medications (including Supplies): Active Outpatient Medications Status 1) ASPIRIN 81MG EC TAB TAKE ONE TABLET BY MOUTH ONCE DAILY ACTIVE Indication: FOR MYOCARDIAL REINFARCTION PREVENTION 2) ATORVASTATIN CALCIUM 80MG TAB TAKE ONE-HALF TABLET BY MOUTH ACTIVE AT BEDTIME Indication: FOR HIGH CHOLESTEROL 3) HYDROCHLOROTHIAZIDE 25MG TAB TAKE ONE-HALF TABLET BY MOUTH ACTIVE ONCE DAILY Indication: FOR VISIBLE WATER RETENTION Pending Outpatient Medications Status 1) ATORVASTATIN CALCIUM 80MG TAB TAKE ONE-HALF TABLET BY MOUTH PENDING AT BEDTIME Indication: FOR HIGH CHOLESTEROL 2) HYDROCHLOROTHIAZIDE 25MG TAB TAKE ONE-HALF TABLET BY MOUTH PENDING ONCE DAILY Indication: FOR VISIBLE WATER RETENTION Active Non-VA Medications Status 1) Non-VA CALCIUM 250MG/VITAMIN D 125 UNT TAB 1 TABLET BY MOUTH ACTIVE 2) Non-VA OTHER CAP/TAB I CAPS TWICE DAILY ACTIVE 3) Non-VA VITAMIN E CAP,ORAL BY MOUTH ACTIVE 8 Total Medications Remote Medications: No Active Remote Medications for this patient shank rander note Chief complaint: Hypertension History of present illness patient takes hydrochlorothiazide for hypertension. Pharmacy record shows he is not compliant. He has not renewed the medication since July 2023. He feels well today with no complaints. He gets home nursing daily Physical examination: Well developed well nourished in no apparent distress Vitals as above Heart: rrr, no m/r/g Lungs: clear to ausculatation Abdomen: soft, +bs, nontender, nondistended, no masses or guarding Extremities: no edema, no cyanosis or clubbing Neurologic: alert, normal gait, normal senory and motor, normal reflexes, EOMI, PERRLA, conjunctiva and sclera normal Psychiatric: answers questions appropriately, normal/coherent speech HEENT: mucious membranes moist Ears and pharynx: no erythema, tympanic membranes normal Neck: supple Urogenital: normal external male, 4 inch left LIH soft reducible Skin: warm, dry, 1 x 1 cm superficial abrasion left buttock without erythema Assessment and plan: 1. Hypertension: Blood pressure satisfactory. Noncompliant with medication. provided education about medication compliance Plan continue hydrochlorothiazide 2. Hypercholesterolemia: Noncompliant with Lipitor Plan check nonfasting lipid profile today ECG today Nonfasting labs today Follow-up 1 year clinic visit and lab RSV vaccine is not available today Medication Reconciliation: Outpatient: Has the patient been taking medications as documented in the EMLR? YES: The patient has been taking medications as documented in the EMLR. Essential Medication List for Review used to complete this medication reconciliation. INCLUDED IN THIS LIST: Alphabetical list of active outpatient prescriptions dispensed from this [facility] (local) and dispensed from another VA or [facility]D facility (remote) as well as inpatient orders (local, pending and active), local clinic medications, locally documented non-VA medications, and local prescriptions that have or been discontinued in the past 90 days. - All changes in medications, including all non-VA/Herbal/OTC medications were entered into CPRS. - If there were any medications the patient should no longer take, they were discontinued. - The patient/caregiver was instructed to update this list, discard old lists, and take this list to the next appointment, whether with a VA or non-VA provider. /eddy/ Ubaldo Banegas MD Staff Physician Signed: 06/14/2024 10:10 UBALDO BANEGAS [place] [facility] [place] [facility] Jun 14, 2024 09:32 AM PREVENTIVE MEDICINE NURSING NOTE: LOCAL TITLE: CLINICAL REMINDERS/NURSING STANDARD TITLE: PREVENTIVE MEDICINE NURSING NOTE DATE OF NOTE: JUN 14, 2024@09:32 ENTRY DATE: JUN 14, 2024@09:32:58 AUTHOR: KELVIN GUARDADO EXP COSIGNER: URGENCY: STATUS: COMPLETED CLINICAL REMINDERS/NURSING Has ADDENDA Suicide Screen: C-SSRS Screening [place] Suicide Severity Rating Scale (C-SSRS) screener 1. Over the past month, have you wished you were or wished you could go to sleep and not wake up? No 2. Over the past month, have you had any actual thoughts of killing yourself? No 3. Over the past month, have you been thinking about how you might do this? Response not required due to responses to other questions. 4. Over the past month, have you had these thoughts and had some intention of acting on them? Response not required due to responses to other questions. 5. Over the past month, have you started to work out or worked out the details of how to kill yourself? Response not required due to responses to other questions. 6. If yes, at any time in the past month did you intend to carry out this plan? Response not required due to responses to other questions. 7. In your lifetime, have you ever done anything, started to do anything, or prepared to do anything to end your life (for example, collected pills, obtained a gun, gave away valuables, went to the roof but didn't jump)? No 8. If YES, was this within the past 3 months? Response not required due to responses to other questions. Homelessness/Food Insecurity Screen: In the past 2 months, have you been living in stable housing that you own, rent, or stay in as part of a household? Yes - Living in stable housing. Are you worried or concerned that in the next 2 months you may NOT have stable housing that you own, rent, or stay in as part of a household? No - Not worried about housing near future The reports the following: Within the past 12 months, you worried whether your food would run out before you got money to buy more. Never true Within the past 12 months, the food you bought just didn't last and you didn't have money to get more. Never true Depression Screening: Perform PHQ-2 A PHQ-2 screen was performed. The score was 0 which is a negative screen for depression. Over the past two weeks, how often have you been bothered by the following problems? 1. Little interest or pleasure in doing things Not at all 2. Feeling down, depressed, or hopeless Not at all Falls & Incontinence Screen: Falls Screen: During the past 12 months, did the patient report any falls? 4. No falls within the past year. Incontinence Screen: During the past 12 months, has the patient has any characteristics of incontinence (ability, voiding, leakage, etc.)? No incontinence. Tobacco Use Screening: The patient has never smoked cigarettes. The patient has never used other types of tobacco. Alcohol Use Screen (AUDIT-C): Alcohol Screen: SCREEN FOR ALCOHOL (AUDIT-C) An alcohol screening test (AUDIT-C) was negative (score=0). 1. How often did you have a drink containing alcohol in the past year? Consider a drink to be a 12 ounce can or bottle of regular beer, 8 ounces of malt liquor, a 5 ounce glass of table wine, or a 1.5 ounce shot of liquor (like scotch, gin, or vodka). Never 2. How many drinks containing alcohol did you have on a typical day when you were drinking in the past year? Response not required due to responses to other questions. 3. How often did you have six or more drinks on one occasion in the past year? Response not required due to responses to other questions. /jesús GUARDADO LPN Signed: 06/14/2024 09:35 06/14/2024 ADDENDUM STATUS: COMPLETED Influenza Immunization: Influenza, High-Dose, Trivalent, Preservative Free (Fluzone-Syringe) Administered: INFLUENZA, HIGH-DOSE, TRIVALENT, PF Date Administered: Jun 14, 2024 09:30 Series: Booster Pottery Striper: [facility] PASTE[employer] Lot: [id number] Exp Date: Dec 10, 2024 ND: [id number] Admin Route/Site: INTRAMUSCULAR/LEFT DELTOID Dosage: 0.5mL Vaccine Information Statement(s): INFLUENZA(FLU) VACC(INACTIVATED OR RECOMBINANT)VIS Jan 16, 2021 (FAROESE) Order By: Policy Administered By: Kelvin Guardado The Influenza Vaccine Information Statement (VIS) was reviewed with the patient/caregiver which lists the benefits and risks of the vaccine and the risks of not receiving the Influenza vaccine. The patient/caregiver denied any prior severe reaction to this vaccine or its components or a severe allergic reaction, such as anaphylaxis, to any vaccine or any injectable therapy. The patient/caregiver gave verbal consent to receive the vaccine. COVID-19 Immunization: Moderna Monovalent (Spikevax) Administered: COVID-19 (MODERNA), MRNA, LNP-S, PF, 50 MCG/0.5 ML (AGES 12+ YEARS) Date Administered: Jun 14, 2024 09:30 Series: Series 1 Pottery Striper: MODERNA [employer]. Lot: [id number] Exp Date: Nov 17, 2024 ND: [id number] Admin Route/Site: INTRAMUSCULAR/RIGHT DELTOID Dosage: 0.3mL Vaccine Information Statement(s): COVID-19 MRNA VACCINE (12+ YRS) VIS Mar 29, 2024 (FAROESE) Order By: Policy Administered By: Kelvin Guardado Vaccine administered without complications. /jesús GUARDADO LPN Signed: 06/14/2024 10:49 [facility] [place] [facility]
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
[2024-08-20 15:37] VITALS: BP 138/73; PULSE 84; RESP 14; O2SAT 99
--- NOTE | 2024-08-20 16:07 | PM.IMHP ---
History of Present Illness Date of Service: 08/20/24 Attending physician on admission: Antelmo Zepeda Chief Complaint: abd pain, diarrhea 89-year-old male with history of TIA, hyperlipidemia, hypertension, inguinal hernia presented to the ED from home after HAND PACKER/PACKAGER reported large volume diarrhea and increased confusion. The patient is a limited historian but is able to tell me he has been having diffuse abdominal pain. He states this has been ongoing for several weeks following eating chicken noodle soup which he states tasted off. He then tells me he had serial which also tasted off this morning. His HAND PACKER/PACKAGER did not report symptoms prior to this morning. He apparently lives at home with his with HAND PACKER/PACKAGER services. He does state he has been nauseous and vomiting though this has not been witnessed. Since arrival, vital signs have been stable though he was noted to desaturate to 85% and was placed on 2 L. However, on exam, oxygen was removed inpatient remain 98% on room air. There is no leukocytosis. He has a stable normocytic anemia with H/H 9.9/30.3%. Chemistries are significant for MASSIEL with creatinine of 2.55, baseline around 1.2, BUN 49. Electrolyte levels within normal limits. Lactic acid 1.7. Ammonia 20. Troponins flat. Negative for COVID-19, RSV, influenza. CXR shows possible acute intra-abdominal process with subsegmental atelectasis lung bases. 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 This was present on prior studies but shows greater calcifications today. C diff PCR and GI panel pending. There is also a left inguinal hernia without evidence of obstruction. Patient will be admitted for MASSIEL related to GI losses. Review of Systems Review of Systems: Yes Unobtainable due to mental status [facility] Medical History Abnormal CT scan Inguinal hernia with strangulation TIA (transient ischemic attack) Hypercholesterolemia Hypertension Surgical History History of right inguinal hernia repair Social History Household Members: Other Housing: Long Term Housing Other:: From [facility] Do you presently have visiting nurse or other home services: Yes Unable to assess alcohol history related to: Unknown Alcohol intake: former Patient Tobacco Use Status: Never used Tobacco e-Cigarette/Vaping Use: Never Used Second Hand Smoke Exposure: No Advance Directives: Yes Advance Directives on File: Yes Advance Directives Date on File: 09/17/22 Do you have a plan to hurt others: No Plan service: Yes Current occupational status: retired Meds Allergies Allergy/AdvReac Type Severity Reaction Status Date / Time No Known Allergies Allergy Verified 08/20/24 12:07 [No Known Allergies*] Active Medications: Current Medications Acetaminophen (Acetaminophen 325 Mg Tablet) 650 mg PO Q6H PRN PRN Reason: Pain, Mild 1-3,fever,headache Calcium Carbonate (Calcium Carbonate 750 Mg Tab.Chew) 750 mg PO Q4H PRN PRN Reason: Heartburn Enoxaparin Sodium (Enoxaparin Sodium 30 Mg/0.3 Ml Syringe) 30 mg SUBCUT Q24H [place] Lactated Ringer's (Lr) 1,000 mls @ 100 mls/hr IVCONT .Q10H [place] Magnesium Hydroxide (Milk Of Magnesia 30 Ml Oral.Susp) 30 ml PO DAILY PRN PRN Reason: Constipation Melatonin (Melatonin 3 Mg Tablet) 6 mg PO BEDTIME PRN PRN Reason: Insomnia Sodium Chloride (0.9 % Sodium Chloride Flush 3 Ml Syringe) 3 ml IVFLUSH QSHIFT [place]O Home Medications ?Medication ?Instructions ?Recorded ?Confirmed ?Last Taken ?Type atorvastatin 80 mg tablet 80 mg PO BEDTIME 08/18/23 08/29/23 Unknown History vitamin E 268 mg (400 unit) capsule 268 mg PO DAILY 08/18/23 08/29/23 Unknown History Saccharomyces boulardii 10 billion 10,000 mmu cells PO BID 08/29/23 08/29/23 Unknown History cell capsule acetaminophen 325 mg tablet 650 mg PO Q4H PRN Fever Or Pain 08/29/23 08/29/23 Unknown History bisacodyl 10 mg rectal suppository 10 mg [place] DAILY PRN Constipation 08/29/23 08/29/23 Unknown History calcium 500 mg (as 0.5 tab PO DAILY 08/29/23 08/29/23 Unknown History carbonate)-vitamin D3 10 mcg (400 unit) tablet (Calcium 500 + D) magnesium hydroxide 2,400 mg/10 mL 30 ml PO DAILY PRN Constipation 08/29/23 08/29/23 Unknown History oral suspension (Milk Of Magnesia Concentrated) melatonin 3 mg tablet 6 mg PO BEDTIME PRN Sleep 08/29/23 08/29/23 Unknown History multivitamin 1 tab PO DAILY 08/29/23 08/29/23 Unknown History sodium phosphates 19 gram-7 118 ml [place] DAILY PRN Constipation 08/29/23 08/29/23 Unknown History gram/118 mL enema (Fleet Enema) Physical Exam Vital Signs and Narrative: Vital Signs: Last Vital Signs Temp 97.9 F 08/20/24 12:06 Pulse 84 08/20/24 15:37 Resp 14 08/20/24 15:37 BP 138/73 08/20/24 15:37 Pulse Ox 99 08/20/24 15:37 O2 Del Method Nasal Cannula 08/20/24 15:37 O2 Flow Rate 2 08/20/24 15:37 BMI result Body Mass Index 21.3 Constitutional - Awake and Alert, No apparent distress Eyes - PERRLA, EOMI Cardiovascular - S1S2, RRR, No edema Respiratory - Normal lung expansion, Normal respiratory effort, No respiratory distress, CTA bilaterally Gastrointestinal - diffuse ttp with some guarding. ND; +BS; No rebound Extremities - no calf tenderness bilaterally, no swelling Skin - Warm/Dry Neurological - Alert & oriented x3, but poor historian unable to give accurate account of why he is the hospital Psychological - Appropriate affect Results Labs 08/20/24 12:17 08/20/24 12:17 Labs: Laboratory Results - last 24 hr 08/20/24 12:17 MCV 90.2 MCH 29.5 MCHC 32.7 RDW 15.9 Plt Count 248 D MPV 11.1 Immature Gran % (Auto) 0.7 H Neut % (Auto) 76.0 H Lymph % (Auto) 9.9 L [place] % (Auto) 13.1 H Eos % (Auto) 0.0 Baso % (Auto) 0.3 Lymph # (Auto) 1.1 L [place] # (Auto) 1.4 H Eos # (Auto) 0.0 Baso # (Auto) 0.0 Abs Immat Gran (auto) 0.07 H Absolute Neuts (auto) 8.1 Absolute Nucleated RBC 0.000 Nucleated RBC % (auto) 0.0 Anion Gap 16 Estim Creat Clear Calc 16.9 Estimated GFR 24 Random Glucose 128 H Lactic Acid 1.7 Calcium 8.8 D Magnesium 2.1 Total Bilirubin 0.5 AST 15 ALT 9 Alkaline Phosphatase 69 Ammonia 28 Total Protein 6.9 Albumin 3.4 L Influenza Type A (PCR) NEGATIVE Influenza Type B (PCR) NEGATIVE RSV RNA Qual (PCR) NEGATIVE SARS-CoV-2 RNA (RT-PCR) NEGATIVE Imaging Radiologist's Impressions: Impressions Chest X-Ray 08/20/24 12:40 IMPRESSION: Concerning acute intra-abdominal process in the correct clinical settings. Subsegmental atelectasis lung bases. Electronically signed by: Rupert Grubbs MD 08/20/2024 12:55 PM EDT RP Abdomen/Pelvis CT 08/20/24 13:01 IMPRESSION: 1. 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 This demonstrates greater calcification than on the prior study. 2. Left internal hernia containing the junction of the descending and sigmoid colon, without evidence of bowel obstruction. Electronically signed by: Luis Manuel Marquez MD 08/20/2024 02:06 PM EDT RP Assessment and Plan (1) Diarrhea: Status: Acute Plan 89-year-old male with history of TIA, hyperlipidemia, hypertension, history of NSTEMI, inguinal hernia admitted for further management of MASSIEL in the setting of GI losses #Acute kidney injury- prerenal related to hypovolemia from GI losses -Creat 2.55, BUN 49. 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 -consider antidiarrheals once C diff PCR and GI panel have resulted -clear liquid diet, advance as tolerated # hypertension -continue home antihypertensives # history of TIA/NSTEMI -continue statin, ASA DVT prophylaxis-Lovenox Full code Patient requires inpatient stay at least 2 midnights for management of acute kidney injury related to GI losses requiring aggressive fluid resuscitation and close monitoring of renal function and electrolyte levels Quality Stroke Does the patient have a stroke diagnosis?: No VTE Prior VTE?: No VTE Risk Level:: Medical - moderate - high VTE Device Contraindication: Treatment Not Indicated VTE Drug Contraindication: N/A - Med Ordered
[2024-08-20] MEDS: Lactated Ringers 1,000 ML 100 ML IVCONT (17:13)
[2024-08-20 17:43] VITALS: BP 149/77; PULSE 83; RESP 16; TEMP 36.7; O2SAT 100
[2024-08-20] MEDS: Enoxaparin Sodium 30 MG/0.3 ML SYRINGE SUBCUT (18:22)
--- NOTE | 2024-08-20 18:34 | PHA.MEDREC ---
Addendum entered by Osiel Mcdaniels 08/21/24 11:55: received med list from [facility], the do not have a record for this patient being on Amlodipine. Addendum entered by Charla Fong [facility] 08/20/24 18:59: [facility] REVIEWED Original Note: Pharmacy Consult ? Medication Reconciliation Pharmacy has completed the medication reconciliation. Spoke with patient and he was very hard of hearing but was able to confirm [facility] I called the [facility] and was able to get a list faxed over I could utilize. I noticed Amlodipine 2.5mg tabs were not on the list and I called the patient's over the phone and she was very sweet but did not know if her was taking this or not still and to [facility] the [facility] and [facility]. We will have staff call and confirm that medication tomorrow. Rest of the med rec done.
[2024-08-20 18:57] LABS: Appearance Urine Cloudy; Color Urine Yellow; Glucose Urine UA Negative (Negative); Leukocyte Esterase Urine Small (1+) (Negative); Nitrite Urine Positive (Negative); PH 5.5 (5.0-9.0); UMIC TRIGGER UACC YES; Urine Blood Trace (Negative); Urine Ketones Trace mg/dL (Negative); Urine Protein 30 (1+) mg/dL (Neg-Trace)
[2024-08-20 19:04] LABS: Bacteria Urine 4+ (None Seen); Hyaline Casts Urine >20 /LPF (0-2); UACC Culture Trigger YES
[2024-08-20 22:46] VITALS: BP 151/77; PULSE 72; RESP 14; TEMP 37.2; O2SAT 100
[2024-08-21] VITALS (7 sets, daily range): BP systolic 112–166; BP diastolic 64–79; PULSE 69–87; RESP 14–18; TEMP 36.2–37.2; O2SAT 92–100
--- NOTE | 2024-08-21 00:59 | MHC.EDTECH ---
Went in to check on patient, patient is incontinent of urine. Changed under pad and putted a [place] cath. Gave patient fresh sheets. Pt resting comfortable, vitals are stable at this moment.
--- NOTE | 2024-08-21 01:35 | PC.NURSE ---
continuous LR bag still infusing at 100ml/hr. documented against LR bag due at 0212
[2024-08-21] MEDS: Lactated Ringers 1,000 ML 100 ML IVCONT ×3 (04:11→22:53)
[2024-08-21 05:12] LABS: MANUAL DIFF FLAG NO
[2024-08-21 05:16] LABS: Basophils Percent Auto 0.2 % (0-2); Eosinophils Absolute Auto 0.1 X10*3/uL (0.0-0.4); Eosinophils Percent Auto 1.2 % (0-4); Hematocrit 30.1 % (42.0-52.0); Hemoglobin 9.9 g/dl (14.0-18.0); Imm Gran Abs Auto 0.04 X10*3/uL (0.00-0.03); Imm Gran Pct Auto 0.5 % (0.0-0.4); Lymphocytes Absolute Auto 1.2 X10*3/uL (1.2-4.9); Lymphocytes Percent Auto 14.6 % (20-40); Mean Corpuscular HGB Conc 32.9 g/dl (31.0-36.0); Mean Corpuscular Hemoglobin 29.4 pg (27.0-33.0); Mean Corpuscular Volume 89.3 fL (80.0-98.0); Mean Platelet Volume 11.2 fL (9.4-12.4); Monocytes Absolute Auto 1.4 X10*3/uL (0.1-1.2); Neutrophils Absolute Auto 5.8 x10*3/uL (2.0-8.3); Neutrophils Percent Auto 67.5 % (45-73); Platelet Count 258 X10*3/uL (160-400); Red Blood Count 3.37 X10*6/uL (4.60-5.80); Red Cell Distribution Width 15.6 % (11.0-16.0); White Blood Count 8.5 X10*3/uL (4.8-10.8)
[2024-08-21 05:33] LABS: Anion Gap 12 (12-20); Blood Urea Nitrogen 43 mg/dL (9-16); Calcium 8.6 mg/dL (8.4-10.2); Carbon Dioxide 23 mmol/L (22-29); Chloride 111 mmol/L (96-108); Creatinine Clr Calc Pharmacy 23.1; Estimated Glomerular Filt Rate 34; Glucose Random 107 mg/dL (60-115); Potassium 4.2 mmol/L (3.3-5.1); Sodium 142 mmol/L (135-145)
[2024-08-21] MEDS: Ampicillin Sodium 1 GM in 0.9 % Sodium Chloride 100 ML IV ×2 (11:09→21:14)
[2024-08-21] MEDS: Aspirin Enteric Coated 81 MG TABLET.DR PO (11:09)
--- NOTE | 2024-08-21 11:17 | PC.NURSE ---
pt cleaned and repositioned in bed. pink cushion dressing applied to sacrum -redness and one small open area noted. No drainage. [place] cath intact - about 800ml in drainage bag.
--- NOTE | 2024-08-21 12:30 | PM.CNGS ---
History of Present Illness Consult details Consult date: 08/21/24 Narrative: Patient is an elderly frail debilitated patient who presents here with nonspecific abdominal complaints. This included nausea, vomiting, and profuse diarrhea. Workup including CT scan demonstrates mesenteric calcification but no other acute intra-abdominal pathology. This mesenteric calcification process has been present for many years time. This has been seen on several prior CT scans of the abdomen. Irrespective of it's progression, patient is a non operative candidate. Chart was reviewed and patient evaluated. 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 If so, by whom?: No Do you feel safe in your current relationship?: Yes Is there a partner from a previous relationship who is making you feel unsafe now?: No Are you made to feel afraid or neglected: No Advance Directives: Yes Advance Directives on File: Yes Advance Directives Date on File: 09/17/22 Do you have a plan to hurt others: No Plan Recently lost weight without trying: Unsure How much weight loss: Unsure Nutrition Risks: No Nutritional Risk Poor oral hygiene: No service: No Current occupational status: retired Meds Allergies Allergy/AdvReac Type Severity Reaction Status Date / Time No Known Allergies Allergy Verified 08/20/24 12:07 [No Known Allergies*] Active Medications: Current Medications Acetaminophen (Acetaminophen 325 Mg Tablet) 650 mg PO Q6H PRN PRN Reason: Pain, Mild 1-3,fever,headache Aspirin (Aspirin Enteric Coated 81 Mg Tablet.Dr) 81 mg PO DAILY [facility] Last Admin: 08/21/24 11:09 Dose: 81 mg Calcium Carbonate (Calcium Carbonate 750 Mg Tab.Chew) 750 mg PO Q4H PRN PRN Reason: Heartburn Enoxaparin Sodium (Enoxaparin Sodium 30 Mg/0.3 Ml Syringe) 30 mg SUBCUT Q24H [facility] Last Admin: 08/20/24 18:22 Dose: 30 mg Lactated Ringer's (Lr) 1,000 mls @ 100 mls/hr IVCONT .Q10H [facility] Last Admin: 08/21/24 04:11 Dose: 100 mls/hr Ampicillin Sodium 1 gm/ Sodium (Chloride) 100 mls @ 200 mls/hr IV Q12H [facility] Last Infusion: 08/21/24 11:52 Dose: Infused Magnesium Hydroxide (Milk Of Magnesia 30 Ml Oral.Susp) 30 ml PO DAILY PRN PRN Reason: Constipation Melatonin (Melatonin 3 Mg Tablet) 6 mg PO BEDTIME PRN PRN Reason: Insomnia Sodium Chloride (0.9 % Sodium Chloride Flush 3 Ml Syringe) 3 ml IVFLUSH QSHIFT [facility] Last Admin: 08/21/24 09:22 Dose: Not Given Home Medications ?Medication ?Instructions ?Recorded ?Confirmed ?Last Taken ?Type atorvastatin 80 mg tablet 40 mg PO BEDTIME 08/18/23 08/20/24 Unknown History cyanocobalamin (vitamin B-12) 1,000 mcg PO DAILY 08/20/24 08/20/24 Unknown History 1,000 mcg tablet (Vitamin B-12) hydrochlorothiazide 25 mg tablet 12.5 mg PO DAILY 08/20/24 08/20/24 Unknown History calcium 600 mg (as 1 tab PO DAILY 08/21/24 08/21/24 Unknown History carbonate)-vitamin D3 5 mcg (200 unit) tablet Physical Exam Vital Signs: Vital Signs: Last Vital Signs Temp 97.1 F 08/21/24 07:12 Pulse 74 08/21/24 07:12 Resp 18 08/21/24 07:12 BP 129/68 08/21/24 07:12 Pulse Ox 100 08/21/24 07:12 O2 Del Method Nasal Cannula 08/21/24 07:12 O2 Flow Rate 2 08/21/24 07:12 BMI result Body Mass Index 21.3 Const: Other: Thin frail-appearing male. Very poor historian. Very thin and fragile appearing GI: Other: Abdomen is soft, benign. Large left inguinal hernia Results Labs 08/22/24 07:08 08/22/24 07:08 Labs: Abnormal lab results 08/20/24 08/20/24 08/21/24 Range/Units 12:17 18:48 04:07 RBC 3.36 L 3.37 L (4.60-5.80) X10*6/uL Hgb 9.9 L 9.9 L (14.0-18.0) g/dl Hct 30.3 L 30.1 L (42.0-52.0) % Immature Gran % (Auto) 0.7 H 0.5 H (0.0-0.4) % Neut % (Auto) 76.0 H (45-73) % Lymph % (Auto) 9.9 L 14.6 L (20-40) % [place] % (Auto) 13.1 H 16.0 H (2-11) % Lymph # (Auto) 1.1 L (1.2-4.9) X10*3/uL [place] # (Auto) 1.4 H 1.4 H (0.1-1.2) X10*3/uL Abs Immat Gran (auto) 0.07 H 0.04 H (0.00-0.03) X10*3/uL Chloride 111 H (96-108) mmol/L BUN 49 H 43 H (9-16) mg/dL Creatinine 2.55 H 1.87 H (0.5-1.4) mg/dL Random Glucose 128 H (60-115) mg/dL Albumin 3.4 L (3.5-5.0) g/dL Urine Protein 30 (1+) H (Neg-Trace) mg/dL Urine Blood Trace H (Negative) Urine Nitrite Positive H (Negative) Ur Leukocyte Esterase Small (1+) H (Negative) Urine RBC 11-20 H (0-2) /HPF Urine WBC 6-10 H (0-5) /HPF Short CBC 08/20/24 08/21/24 Range/Units 12:17 04:07 WBC 10.6 8.5 (4.8-10.8) X10*3/uL Hgb 9.9 L 9.9 L (14.0-18.0) g/dl Hct 30.3 L 30.1 L (42.0-52.0) % Plt Count 248 D 258 (160-400) X10*3/uL BMP 08/20/24 08/21/24 12:17 04:07 Sodium 140 142 Potassium 4.6 4.2 Chloride 107 111 H Carbon Dioxide 22 23 BUN 49 H 43 H Creatinine 2.55 H 1.87 H Calcium 8.8 D 8.6 Liver Function 08/20/24 Range/Units 12:17 Total Bilirubin 0.5 (0.0-1.0) mg/dL AST 15 (5-37) U/L ALT 9 (0-40) U/L Alkaline Phosphatase 69 (39-117) U/L Albumin 3.4 L (3.5-5.0) g/dL Urine 08/20/24 Range/Units 18:48 Urine Color Yellow Urine Appearance Cloudy Urine pH 5.5 (5.0-9.0) Ur Specific [place] 1.020 (1.005-1.025) Urine Protein 30 (1+) H (Neg-Trace) mg/dL Urine Glucose (UA) Negative (Negative) mg/dL All other labs normal. Assessment and Plan (1) Left inguinal hernia: Status: Acute (2) Calcified mesenteric mass: Status: Acute Plan At present, no surgical intervention planned for this patient with a chronic intra-abdominal mesenteric calcification process. No evidence of obstruction any other GI issues demonstrated on scan. Patient is an extremely suboptimal surgical candidate at best Procedures Date of Service Date of Service: 08/22/24
--- NOTE | 2024-08-21 13:18 | HO.PM.IMPN ---
Subjective Subjective Date of Service: 08/21/24 Interval History: Seen and evaluated more alert and interactive diarrhea improving Cr improving no other events Review of Systems Review of Systems: Yes all other systems are reviewed and are negative Physical Exam Vital Signs: Vital Signs: Last Vital Signs Temp 98.6 F 08/21/24 12:38 Pulse 73 08/21/24 12:38 Resp 16 08/21/24 12:38 BP 166/79 H 08/21/24 12:38 Pulse Ox 100 08/21/24 12:38 O2 Del Method Nasal Cannula 08/21/24 12:38 O2 Flow Rate 2 08/21/24 12:38 BMI result Body Mass Index 21.3 Const: Other: Constitutional : interactive, frail looking, not in distress Cardiovascular : no JVP, no lower extremity edema Respiratory : bilateral chest movement, not in resp distress Gastrointestinal: soft, lax, mild generalized tenderness Skin : Warm, Dry, chronic LE skin changes Neurological : Alert & oriented , No focal deficit Objective Data Active Medications Acetaminophen (Acetaminophen 325 Mg Tablet) 650 mg PO Q6H PRN PRN Reason: Pain, Mild 1-3,fever,headache Aspirin (Aspirin Enteric Coated 81 Mg Tablet.Dr) 81 mg PO DAILY [facility] Last Admin: 08/21/24 11:09 Dose: 81 mg Documented By: PAXTON Calcium Carbonate (Calcium Carbonate 750 Mg Tab.Chew) 750 mg PO Q4H PRN PRN Reason: Heartburn Enoxaparin Sodium (Enoxaparin Sodium 30 Mg/0.3 Ml Syringe) 30 mg SUBCUT Q24H [facility] Last Admin: 08/20/24 18:22 Dose: 30 mg Documented By: PAXTON Lactated Ringer's (Lr) 1,000 mls @ 100 mls/hr IVCONT .Q10H [facility] Last Admin: 08/21/24 04:11 Dose: 100 mls/hr Documented By: NIR-KRYSTLE Ampicillin Sodium 1 gm/ Sodium (Chloride) 100 mls @ 200 mls/hr IV Q12H [facility] Last Infusion: 08/21/24 11:52 Dose: Infused Documented By: MILTON Magnesium Hydroxide (Milk Of Magnesia 30 Ml Oral.Susp) 30 ml PO DAILY PRN PRN Reason: Constipation Melatonin (Melatonin 3 Mg Tablet) 6 mg PO BEDTIME PRN PRN Reason: Insomnia Sodium Chloride (0.9 % Sodium Chloride Flush 3 Ml Syringe) 3 ml IVFLUSH QSHIFT [facility] Last Admin: 08/21/24 09:22 Dose: Not Given Documented By: MILTON Non-Admin Reason: IV Running Labs 08/21/24 04:07 08/21/24 04:07 Labs: Laboratory Results - last 24 hr 08/20/24 08/20/24 08/21/24 12:17 18:48 04:07 MCV 89.3 MCH 29.4 MCHC 32.9 RDW 15.6 Plt Count 258 MPV 11.2 Immature Gran % (Auto) 0.5 H Neut % (Auto) 67.5 Lymph % (Auto) 14.6 L [place] % (Auto) 16.0 H Eos % (Auto) 1.2 Baso % (Auto) 0.2 Lymph # (Auto) 1.2 [place] # (Auto) 1.4 H Eos # (Auto) 0.1 Baso # (Auto) 0.0 Abs Immat Gran (auto) 0.04 H Absolute Neuts (auto) 5.8 Absolute Nucleated RBC 0.000 Nucleated RBC % (auto) 0.0 Anion Gap 12 Estim Creat Clear Calc 23.1 Estimated GFR 34 Random Glucose 107 Calcium 8.6 Urine Color Yellow Urine Appearance Cloudy Urine pH 5.5 Ur Specific [place] 1.020 Urine Protein 30 (1+) H Urine Glucose (UA) Negative Urine Ketones Trace Urine Blood Trace H Urine Nitrite Positive H Ur Leukocyte Esterase Small (1+) H Urine RBC 11-20 H Urine WBC 6-10 H Ur Squamous Epith Cells 6-10 Urine Bacteria 4+ Hyaline Casts >20 Influenza Type A (PCR) NEGATIVE Influenza Type B (PCR) NEGATIVE RSV RNA Qual (PCR) NEGATIVE SARS-CoV-2 RNA (RT-PCR) NEGATIVE Microbiology Microbiology Results: Microbiology 08/20/24 19:04 Urine Culture - Preliminary Urine clean catch - Clean Catch Midstream Culture in progress. 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 start PRN Imodium advance as tolerated Surgery input, no surgical intervention planned for this patient with a chronic intra-abdominal mesenteric calcification process. # UTI Cx of Enterococcus on Ampicillin for now # hypertension continue home antihypertensives # history of TIA/NSTEMI continue statin, ASA DVT prophylaxis-Lovenox Full code Patient requires inpatient stay overnight for management of acute kidney injury related to GI losses requiring aggressive fluid resuscitation and close monitoring of renal function and electrolyte levels Quality Stroke Does the patient have a stroke diagnosis?: No VTE Prior VTE?: No VTE Risk Level:: Medical - moderate - high VTE Device Contraindication: Treatment Not Indicated VTE Drug Contraindication: N/A - Med Ordered
--- NOTE | 2024-08-21 13:48 | MHC.CM.PN ---
PT LIVES WITH HIS ,THEY HAVE SERVICES THRU [facility] AND [facility] ADDITIONALLY THEY ARE BEING FOLLOWED BY [facility]ECT[facility] PT WILL NEED AMB TRANSPORTS HOME
[2024-08-21] MEDS: Enoxaparin Sodium 30 MG/0.3 ML SYRINGE SUBCUT (16:15)
[2024-08-21] MEDS: Ammonium Lactate 12 % Lotion 226 GM BOTTLE 1 APPL TOPICAL ×2 (16:16→21:08)
[2024-08-21 22:04] LABS: Leukocytes Stool Qualitative NEGATIVE (NEGATIVE)
[2024-08-21 22:34] LABS: CDiff Gene PCR NEGATIVE (Negative)
[2024-08-22 05:40] VITALS: BP 147/68; PULSE 71; RESP 16; TEMP 36.1; O2SAT 98
[2024-08-22 06:45] VITALS: BP 140/69; PULSE 71; RESP 16; TEMP 36.6; O2SAT 98
[2024-08-22 07:39] LABS: MANUAL DIFF FLAG NO
[2024-08-22 07:53] LABS: Basophils Percent Auto 0.5 % (0-2); Eosinophils Absolute Auto 0.5 X10*3/uL (0.0-0.4); Imm Gran Abs Auto 0.04 X10*3/uL (0.00-0.03); Imm Gran Pct Auto 0.6 % (0.0-0.4); Lymphocytes Absolute Auto 1.4 X10*3/uL (1.2-4.9); Lymphocytes Percent Auto 21.5 % (20-40); Mean Corpuscular HGB Conc 32.1 g/dl (31.0-36.0); Mean Corpuscular Hemoglobin 28.9 pg (27.0-33.0); Mean Platelet Volume 10.5 fL (9.4-12.4); Monocytes Absolute Auto 0.9 X10*3/uL (0.1-1.2); Monocytes Percent Auto 13.3 % (2-11); Neutrophils Absolute Auto 3.7 x10*3/uL (2.0-8.3); Neutrophils Percent Auto 57.1 % (45-73); Platelet Count 277 X10*3/uL (160-400); Red Blood Count 3.11 X10*6/uL (4.60-5.80); Red Cell Distribution Width 15.8 % (11.0-16.0); White Blood Count 6.5 X10*3/uL (4.8-10.8)
[2024-08-22 08:16] LABS: Anion Gap 9 (12-20); Blood Urea Nitrogen 26 mg/dL (9-16); Calcium 7.8 mg/dL (8.4-10.2); Carbon Dioxide 25 mmol/L (22-29); Chloride 110 mmol/L (96-108); Creatinine Clr Calc Pharmacy 36.7; Estimated Glomerular Filt Rate 58; Glucose Random 92 mg/dL (60-115); Potassium 3.7 mmol/L (3.3-5.1); Sodium 140 mmol/L (135-145)
[2024-08-22] MEDS: 0.9 % Sodium Chloride Flush 3 ML SYRINGE IVFLUSH ×3 (08:58→23:00)
[2024-08-22] MEDS: Lactated Ringers 1,000 ML 100 ML IVCONT (08:58)
[2024-08-22] MEDS: Ampicillin Sodium 1 GM in 0.9 % Sodium Chloride 100 ML IV ×2 (09:32→21:54)
[2024-08-22] MEDS: Aspirin Enteric Coated 81 MG TABLET.DR PO (09:32)
[2024-08-22] MEDS: Ammonium Lactate 12 % Lotion 226 GM BOTTLE 1 APPL TOPICAL (09:35)
--- NOTE | 2024-08-22 11:00 | P.DS_ITS ---
DS: Providers Provider Date of Service: 08/23/24 <Antelmo Zepeda MD - Last Filed: 08/22/24 12:39> Date of admission: 08/20/24 16:04 <Antelmo Zepeda MD - Last Filed: 08/22/24 12:39> Date of discharge: 08/23/24 <Antelmo Zepeda MD - Last Filed: 08/22/24 12:39> Primary care physician: Unknown Physician <Antelom Zepeda MD - Last Filed: 08/22/24 12:39> Consults: 08/20/24 16:04 Consult to General Surgery [place]ine [place]ing Provider[place] [facility] [place] [facility] Reason for consultation: retractile mesenteritis, n/v/d <Antelmo Zepeda MD - Last Filed: 08/22/24 12:39> DS: Diagnosis Discharge Diagnosis (1) Calcified mesenteric mass: Status: Acute <Antelmo Zepeda MD - Last Filed: 08/22/24 12:39> (2) Diarrhea: Status: Acute <Antelmo Zepeda MD - Last Filed: 08/22/24 12:39> (3) MASSIEL (acute kidney injury): Status: Acute <Antelmo Zepeda MD - Last Filed: 08/22/24 12:39> (4) Acute UTI: Status: Acute <Antelmo Zepeda MD - Last Filed: 08/22/24 12:39> DS: Summary Hospital Course Hospital Course: Admission note HPI 89-year-old male with history of TIA, hyperlipidemia, hypertension, inguinal hernia presented to the ED from home after [employer] reported large volume diarrhea and increased confusion. The patient is a limited historian but is able to tell me he has been having diffuse abdominal pain. He states this has been ongoing for several weeks following eating chicken noodle soup which he states tasted off. He then tells me he had serial which also tasted off this morning. His [employer] CUSTODIAN did not report symptoms prior to this morning. He apparently lives at home with his with [employer] services. He does state he has been nauseous and vomiting though this has not been witnessed. Since arrival, vital signs have been stable though he was noted to desaturate to 85% and was placed on 2 L. However, on exam, oxygen was removed inpatient remain 98% on room air. There is no leukocytosis. He has a stable normocytic anemia with H/H 9.9/30.3%. Chemistries are significant for MASSIEL with creatinine of 2.55, baseline around 1.2, BUN 49. Electrolyte levels within normal limits. Lactic acid 1.7. Ammonia 20. Troponins flat. Negative for COVID-19, RSV, influenza. CXR shows possible acute intra-abdominal process with subsegmental atelectasis lung bases. 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 This was present on prior studies but shows greater calcifications today. C diff PCR and GI panel pending. There is also a left inguinal hernia without evidence of obstruction. Patient will be admitted for MASSIEL related to GI losses. Hospital course #Acute kidney injury- prerenal related to hypovolemia from GI losses as the patient presented with Creatinine of 2.55 on admission. improved and trended down to 1.2 during the hospital stay. encourage PO intake. #Gastroenteritis with acute nausea/vomiting/diarrhea. 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 C diff PCR and GI panel negative, responded well to IV fluids, antiemetics p.r.n., PRN Imodium , diet was advanced to regular with good tolerance. Evaulated by Surgery who recommended no surgical intervention planned for this patient with a chronic intra-abdominal mesenteric calcification process. # UTI likely on presentation with history of Enterococcus in urine treated with IV Ampicillin and to be discharged on Amoxicillin for 3 more days to finish 1 week of antibiotics. Discharge plan Continue Antibiotics for 3 more days Ammonium lactate lotion for lower extremities Physical therapy as tolerated <Antelmo Zepeda MD - Last Filed: 08/22/24 12:39> Time Attestation Discharge Coordination Time (in mins): 40 <Lexie Lujan MD - Last Filed: 08/23/24 11:06> Quality: Safe Use of Opioids Does Pt have an Active Cancer Diagnosis on the Problem List?: No <Lexie Lujan MD - Last Filed: 08/23/24 11:06> Quality: Stroke Does the patient have a stroke diagnosis?: No <Lexie Lujan MD - Last Filed: 08/23/24 11:06> Physical Exam Vital Signs: Vital Signs: Last Vital Signs Temp 98 F 08/22/24 06:45 Pulse 71 08/22/24 06:45 Resp 16 08/22/24 06:45 BP 140/69 H 08/22/24 06:45 Pulse Ox 98 08/22/24 06:45 O2 Del Method Nasal Cannula 08/22/24 06:45 O2 Flow Rate 2 08/22/24 06:45 BMI result Body Mass Index 21.3 <Antelmo Zepeda MD - Last Filed: 08/22/24 12:39> Const: Other: Constitutional : interactive, frail looking, not in distress Cardiovascular : no JVP, no lower extremity edema Respiratory : bilateral chest movement, not in resp distress Gastrointestinal: soft, lax, mild generalized tenderness Skin : Warm, Dry, chronic LE skin changes Neurological : Alert & oriented , No focal deficit <Antelmo Zepeda MD - Last Filed: 08/22/24 12:39> DS: Data Data Completed and Pending Labs on day of discharge: Laboratory Results - last 24 hr 08/21/24 08/22/24 19:09 07:08 WBC 6.5 RBC 3.11 L Hgb 9.0 L Hct 28.0 L MCV 90.0 MCH 28.9 MCHC 32.1 RDW 15.8 Plt Count 277 MPV 10.5 Immature Gran % (Auto) 0.6 H Neut % (Auto) 57.1 Lymph % (Auto) 21.5 [place] % (Auto) 13.3 H Eos % (Auto) 7.0 H Baso % (Auto) 0.5 Lymph # (Auto) 1.4 [place] # (Auto) 0.9 Eos # (Auto) 0.5 H Baso # (Auto) 0.0 Abs Immat Gran (auto) 0.04 H Absolute Neuts (auto) 3.7 Absolute Nucleated RBC 0.000 Nucleated RBC % (auto) 0.0 Sodium 140 Potassium 3.7 Chloride 110 H Carbon Dioxide 25 Anion Gap 9 L BUN 26 H Creatinine 1.18 Estim Creat Clear Calc 36.7 Estimated GFR 58 Random Glucose 92 Calcium 7.8 L D Stool Leukocytes, Qual NEGATIVE C. difficile Tox B Gene NEGATIVE Preliminary micro results at discharge 08/20/24 12:25 Blood Culture - Preliminary Blood - Venous No growth after 24 hours. 08/20/24 12:17 Blood Culture - Preliminary Blood - Venous No growth after 24 hours. <Antelmo Zepeda MD - Last Filed: 08/22/24 12:39> Imaging Chest x-ray: Radiologist's impression: ITS Impressions Chest X-Ray 08/20/24 12:40 IMPRESSION: Concerning acute intra-abdominal process in the correct clinical settings. Subsegmental atelectasis lung bases. Electronically signed by: Rupert Grubbs MD 08/20/2024 12:55 PM EDT RP Abdomen/Pelvis CT 08/20/24 13:01 IMPRESSION: 1. 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 This demonstrates greater calcification than on the prior study. 2. Left internal hernia containing the junction of the descending and sigmoid colon, without evidence of bowel obstruction. Electronically signed by: Luis Manuel Marquez MD 08/20/2024 02:06 PM EDT RP <Antelmo Zepeda MD - Last Filed: 08/22/24 12:39> Discharge Plan Discharge Anticipated Discharge Date/Time: 08/23/24 12:27 <Antelmo Zepeda MD - Last Filed: 08/22/24 12:39> Patient Disposition: Xfer [facility] <Antelmo Zepeda MD - Last Filed: 08/22/24 12:39> Discharge Diagnosis: UTI Acute kidney injury <Antelmo Zepeda MD - Last Filed: 08/22/24 12:39> UTI Acute kidney injury <Lexie Lujan MD - Last Filed: 08/23/24 11:06> Referrals: Physician,Unknown J [Primary Care Provider] - 1 Week <Antelmo Zepeda MD - Last Filed: 08/22/24 12:39> Discharge Medications: New ammonium lactate 12 % Lotion 1 appl topical BID Qty: 225 0RF Protocol: Apply to: Apply to: lower extremities amoxicillin 500 mg tablet 500 mg PO BID Qty: 6 0RF Continued atorvastatin 80 mg Tablet 40 mg PO BEDTIME cyanocobalamin (vitamin B-12) [Vitamin B-12] 1,000 mcg Tablet 1,000 mcg PO DAILY hydrochlorothiazide 25 mg Tablet 12.5 mg PO DAILY calcium carbonate-vitamin D3 600 mg-5 mcg (200 unit) Tablet 1 tab PO DAILY aspirin 81 mg Tablet,Delayed Release (Dr/Ec) 81 mg PO DAILY Qty: 0 0RF <Antelmo Zepeda MD - Last Filed: 08/22/24 12:39> Discharge Orders: Discharge Order (Routine); Ordered 08/23/24 Ordered By: Lexie Lujan <Antelmo Zepeda MD - Last Filed: 08/22/24 12:39> Diet: Advance to usual diet <Antelmo Zepeda MD - Last Filed: 08/22/24 12:39> Advance to usual diet <Lexie Lujan MD - Last Filed: 08/23/24 11:06> Activity on Discharge: As tolerated <Antelmo Zepeda MD - Last Filed: 08/22/24 12:39> As tolerated <Lexie Lujan MD - Last Filed: 08/23/24 11:06> Stand Alone Forms: Patient Portal Discharge page <Antelmo Zepeda MD - Last Filed: 08/22/24 12:39> Print Language: Angolan <Antelmo Zepeda MD - Last Filed: 08/22/24 12:39> Care Plan Goals: Continue Antibiotics for 3 more days Ammonium lactate lotion for lower extremities Physical therapy as tolerated Bilateral heels intact tissue, offload pressure and protect from friction with foam elevate with pillows Moisture associated skin injury to sacrum Bilateral leg venous dermatitis Recommendations: 1. Turn and Reposition every 2 hours and as needed for patient comfort.? Use pillows or wedges to support off loading positions. Waffle cushion in place 2. Off Load all bony prominences with use of pillows and heel boots if needed.? Apply Preventative foams where needed. ? 3. Monitor for incontinence and moisture control, use barrier creams when needed for prevention and treatment. 4. Provide adequate and supplemental nutrition.? 5. Order low air loss mattress. 6. Bilateral Lower Legs - Cleanse with PH Balanced [place], apply vaseline to lower legs cover open wounds with xeroform, cover with ABD pad, & Gauze wrap. Change Daily. 7. Sacrum - Off Load Pressure with Q2 hr turns and use of pillows - Ensure Waffle cushion is in use when up to recliner chair. Cleanse with PH balance spray or wipes, pat dry. ?Apply thin layer of Triad to wound bed. Do not remove all of paste between applications as this may cause further skin damage.? Cover with foam dressing to aid in off loading and protection from friction. 8. Bilateral Heels - Elevate heels off of surface of bed and recliner with use of pillows. Routine cleansing, pat dry. Apply skin prep allow to dry. Apply Foam dressing to heel peel back and assess Q shift and change every 5 days and PRN. <Antelmo Zepeda MD - Last Filed: 08/22/24 12:39> Health Concerns: Acute kidney injury UTI <Antelmo Zepeda MD - Last Filed: 08/22/24 12:39> Plan of Treatment: Amoxicillin <Antelmo Zepeda MD - Last Filed: 08/22/24 12:39> Assessment: as above <Antelmo Zepeda MD - Last Filed: 08/22/24 12:39>
--- NOTE | 2024-08-22 12:26 | P.PNIM_ITS ---
Subjective Subjective Date of Service: 08/22/24 Interval History: Seen and evaluated more alert and interactive diarrhea resolved Cr improving to 1.2 no other events Review of Systems Review of Systems: Yes all other systems are reviewed and are negative Physical Exam 2 Vital Signs: Vital Signs: Last Vital Signs Temp 98 F 08/22/24 06:45 Pulse 71 08/22/24 06:45 Resp 16 08/22/24 06:45 BP 140/69 H 08/22/24 06:45 Pulse Ox 98 08/22/24 06:45 O2 Del Method Nasal Cannula 08/22/24 06:45 O2 Flow Rate 2 08/22/24 06:45 BMI result Body Mass Index 21.3 Const: Other: Constitutional : interactive, frail looking, not in distress Cardiovascular : no JVP, no lower extremity edema Respiratory : bilateral chest movement, not in resp distress Gastrointestinal: soft, lax, mild generalized tenderness Skin : Warm, Dry, chronic LE skin changes Neurological : Alert & oriented , No focal deficit Objective Data Active Medications Acetaminophen (Acetaminophen 325 Mg Tablet) 650 mg PO Q6H PRN PRN Reason: Pain, Mild 1-3,fever,headache Aspirin (Aspirin Enteric Coated 81 Mg Tablet.) 81 mg PO DAILY [facility] Last Admin: 08/22/24 09:32 Dose: 81 mg Documented By: SURJIT Calcium Carbonate (Calcium Carbonate 750 Mg Tab.Chew) 750 mg PO Q4H PRN PRN Reason: Heartburn Enoxaparin Sodium (Enoxaparin Sodium 30 Mg/0.3 Ml Syringe) 30 mg SUBCUT Q24H [facility] Last Admin: 08/21/24 16:15 Dose: 30 mg Documented By: DANYELLE Lactated Ringer's (Lr) 1,000 mls @ 100 mls/hr IVCONT .Q10H [facility] Last Admin: 08/22/24 08:58 Dose: 100 mls/hr Documented By: ANNE Ampicillin Sodium 1 gm/ Sodium (Chloride) 100 mls @ 200 mls/hr IV Q12H [facility] Last Infusion: 08/22/24 10:19 Dose: Infused Documented By: SURJIT Lactic Acid (Ammonium Lactate 12 % Lotion 226 Gm Bottle) 1 appl TOPICAL BID [facility]; Protocol Last Admin: 08/22/24 09:35 Dose: 1 appl Documented By: SURJIT Loperamide HCl (Loperamide Hcl 2 Mg Capsule) 2 mg PO Q4H PRN PRN Reason: Diarrhea Magnesium Hydroxide (Milk Of Magnesia 30 Ml Oral.Susp) 30 ml PO DAILY PRN PRN Reason: Constipation Melatonin (Melatonin 3 Mg Tablet) 6 mg PO BEDTIME PRN PRN Reason: Insomnia Sodium Chloride (0.9 % Sodium Chloride Flush 3 Ml Syringe) 3 ml IVFLUSH QSHIFT [facility] Last Admin: 08/22/24 08:58 Dose: 3 ml Documented By: ANNE Labs 08/22/24 07:08 08/22/24 07:08 Labs: Laboratory Results - last 24 hr 08/21/24 08/22/24 19:09 07:08 MCV 90.0 MCH 28.9 MCHC 32.1 RDW 15.8 Plt Count 277 MPV 10.5 Immature Gran % (Auto) 0.6 H Neut % (Auto) 57.1 Lymph % (Auto) 21.5 [place] % (Auto) 13.3 H Eos % (Auto) 7.0 H Baso % (Auto) 0.5 Lymph # (Auto) 1.4 [place] # (Auto) 0.9 Eos # (Auto) 0.5 H Baso # (Auto) 0.0 Abs Immat Gran (auto) 0.04 H Absolute Neuts (auto) 3.7 Absolute Nucleated RBC 0.000 Nucleated RBC % (auto) 0.0 Anion Gap 9 L Estim Creat Clear Calc 36.7 Estimated GFR 58 Random Glucose 92 Calcium 7.8 L D Stool Leukocytes, Qual NEGATIVE C. difficile Tox B Gene NEGATIVE Microbiology Microbiology Results: Microbiology 08/20/24 19:04 Urine Culture - Final Urine clean catch - Clean Catch Midstream 08/20/24 12:25 Blood Culture - Preliminary Blood - Venous No growth after 24 hours. 08/20/24 12:17 Blood Culture - Preliminary Blood - Venous No growth after 24 hours. 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 PRN Imodium advanced to regular Surgery input, no surgical intervention planned for this patient with a chronic intra-abdominal mesenteric calcification process. # UTI Cx of Enterococcus on Ampicillin for now # hypertension continue home antihypertensives # history of TIA/NSTEMI continue statin, ASA DVT prophylaxis-Lovenox Full code Patient requires inpatient stay overnight for management of acute kidney injury related to GI losses requiring aggressive fluid resuscitation and close monitoring of renal function and electrolyte levels Quality Stroke Does the patient have a stroke diagnosis?: No VTE Prior VTE?: No VTE Risk Level:: Medical - moderate - high VTE Device Contraindication: Treatment Not Indicated VTE Drug Contraindication: N/A - Med Ordered
--- NOTE | 2024-08-22 12:45 | MHC.CM.PN ---
PT rec STR. Patient is not [facility]. Will go on MCR and will have QHS tomorrow. Choices are 1) [facility] and 2) [facility]. CM will continue to follow.
[2024-08-22 12:57] LABS: Adenovirus F 40/41 Not Detected (Not Detect.); Astrovirus Not Detected (Not Detect.); Campylobacter Not Detected (Not Detect.); Cryptosporidium Not Detected (Not Detect.); Cyclospora cayetanensis Not Detected (Not Detect.); E. coli EAEC Not Detected (Not Detect.); E. coli EPEC Not Detected (Not Detect.); E. coli ETEC Not Detected (Not Detect.); E. coli STEC Not Detected (Not Detect.); Entamoeba histolytica Not Detected (Not Detect.); Giardia lamblia Not Detected (Not Detect.); Norovirus GI/GII Not Detected (Not Detect.); Plesiomonas shigelloides Not Detected (Not Detect.); Rotavirus A Not Detected (Not Detect.); Salmonella Not Detected (Not Detect.); Sapovirus Not Detected (Not Detect.); Shigella sp./EIEC Not Detected (Not Detect.); Vibrio Not Detected (Not Detect.); Vibrio Cholerae Not Detected (Not Detect.); Yersinia enterocolitica Not Detected (Not Detect.)
[2024-08-22 13:54] VITALS: BP 140/69; PULSE 71; O2SAT 98
[2024-08-22 14:00] VITALS: BP 132/74; PULSE 88; RESP 16; TEMP 36.1; O2SAT 97
[2024-08-22] MEDS: Enoxaparin Sodium 40 MG/0.4 ML SYRINGE SUBCUT (17:34)
--- NOTE | 2024-08-22 17:40 | HO.WOUND ---
Wound Consult: Initial 89yr old M? [place] [facility] [place] - See progress notes and H&P for detailed history.? Wound consult placed for sacrum and Bilateral Leg wounds POA.? Patient agreeable to assessment and photo documentation.? Bilateral Legs have evidence of recent significant swelling - swelling is currently resolved but evidence remains. Both legs were noted for thick scaling lifting dry epidermal layers. These were easily removed with cleansing and revealed bilateral [place] partial thickness tissue loss. Heels are intact no PI noted. Left Leg Right Leg Etiology: Venous Dermatitis ? Wound Bed: resurfacing pink moist partial thickness tissue Drainage / Odor: None noted Edges: ? Irregular and attached Kat wound: evidence of previous swelling - swelling is currently resolved but evidence remains? No Induration, Fluctuance or Warmth noted Pain: tenderness reported Goals of Treatment: ? Moist wound healing Patient is known to have previous pressure injury to sacrum at this time consistent with MASD Etiology: MASD ?Present on Admission Wound Bed: red pink blanchable tissue Drainage / Odor: None Edges: ? Irregular Kat wound: ? Intact - No Induration, Fluctuance or Warmth noted Pain: None Goals of Treatment: ? Waffle cushion to chair and off load with Q2hr turns barrier cream Bilateral Heels intact tissue Goals of Treatment: ? Off Load Pressure and protect from friction with foam elevate with pillows Recommendations: 1. Turn and Reposition every 2 hours and as needed for patient comfort.? Use pillows or wedges to support off loading positions. Waffle cushion in place 2. Off Load all bony prominences with use of pillows and heel boots if needed.? Apply Preventative foams where needed. ? 3. Monitor for incontinence and moisture control, use barrier creams when needed for prevention and treatment. 4. Provide adequate and supplemental nutrition.? 5. Order low air loss mattress. 6. Bilateral Lower Legs - Cleanse with PH Balanced [employer], apply vaseline to lower legs cover open wounds with xeroform, cover with ABD pad, & Gauze wrap. Change Daily. 7. Sacrum - Off Load Pressure with Q2 hr turns and use of pillows - Ensure Waffle cushion is in use when up to recliner chair. Cleanse with PH balance spray or wipes, pat dry. ?Apply thin layer of Triad to wound bed. Do not remove all of paste between applications as this may cause further skin damage.? Cover with foam dressing to aid in off loading and protection from friction. 8. Bilateral Heels - Elevate heels off of surface of bed and recliner with use of pillows. Routine cleansing, pat dry. Apply skin prep allow to dry. Apply Foam dressing to heel peel back and assess Q shift and change every 5 days and PRN. Re-consult wound care Nurse for wound deterioration or wound changes.
[2024-08-22 22:00] VITALS: RESP 16
[2024-08-23 05:28] VITALS: BP 129/70; PULSE 75; RESP 14; TEMP 36.7; O2SAT 93
[2024-08-23 05:41] LABS: MANUAL DIFF FLAG NO
[2024-08-23 05:50] LABS: Basophils Percent Auto 0.4 % (0-2); Eosinophils Absolute Auto 0.4 X10*3/uL (0.0-0.4); Hematocrit 25.6 % (42.0-52.0); Hemoglobin 8.4 g/dl (14.0-18.0); Imm Gran Abs Auto 0.05 X10*3/uL (0.00-0.03); Imm Gran Pct Auto 0.6 % (0.0-0.4); Lymphocytes Absolute Auto 1.6 X10*3/uL (1.2-4.9); Lymphocytes Percent Auto 20.7 % (20-40); Mean Corpuscular HGB Conc 32.8 g/dl (31.0-36.0); Mean Corpuscular Volume 88.3 fL (80.0-98.0); Mean Platelet Volume 9.7 fL (9.4-12.4); Monocytes Absolute Auto 0.9 X10*3/uL (0.1-1.2); Monocytes Percent Auto 11.9 % (2-11); Neutrophils Absolute Auto 4.8 x10*3/uL (2.0-8.3); Neutrophils Percent Auto 61.4 % (45-73); Platelet Count 260 X10*3/uL (160-400); Red Cell Distribution Width 15.3 % (11.0-16.0); White Blood Count 7.7 X10*3/uL (4.8-10.8)
[2024-08-23 06:01] LABS: Anion Gap 7 (12-20); Blood Urea Nitrogen 21 mg/dL (9-16); Calcium 7.7 mg/dL (8.4-10.2); Carbon Dioxide 25 mmol/L (22-29); Chloride 111 mmol/L (96-108); Creatinine Clr Calc Pharmacy 41.2; Estimated Glomerular Filt Rate > 60; Glucose Random 96 mg/dL (60-115); Potassium 3.5 mmol/L (3.3-5.1); Sodium 139 mmol/L (135-145)
--- NOTE | 2024-08-23 11:00 | P.DS_ITS ---
DS: Providers Provider Date of Service: 08/23/24 Date of admission: 08/20/24 16:04 Date of discharge: 08/23/24 Primary care physician: Unknown Physician Consults: 08/20/24 16:04 Consult to General Surgery Routine [place]ing [place] [facility] [place] [facility] Reason for consultation: retractile mesenteritis, n/v/d DS: Diagnosis Discharge Diagnosis (1) Calcified mesenteric mass: Status: Acute (2) Diarrhea: Status: Acute (3) MASSIEL (acute kidney injury): Status: Acute (4) Acute UTI: Status: Acute DS: Summary Hospital Course Hospital Course: Admission note HPI 89-year-old male with history of TIA, hyperlipidemia, hypertension, inguinal hernia presented to the ED from home after [employer]FACE [employer]ING [employer] reported large volume diarrhea and increased confusion. The patient is a limited historian but is able to tell me he has been having diffuse abdominal pain. He states this has been ongoing for several weeks following eating chicken noodle soup which he states tasted off. He then tells me he had serial which also tasted off this morning. 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 He apparently lives at home with his with [employer] services. He does state he has been nauseous and vomiting though this has not been witnessed. Since arrival, vital signs have been stable though he was noted to desaturate to 85% and was placed on 2 L. However, on exam, oxygen was removed inpatient remain 98% on room air. There is no leukocytosis. He has a stable normocytic anemia with H/H 9.9/30.3%. Chemistries are significant for MASSIEL with creatinine of 2.55, baseline around 1.2, BUN 49. Electrolyte levels within normal limits. Lactic acid 1.7. López ia 20. Troponins flat. Negative for COVID-19, RSV, influenza. CXR shows possible acute intra-abdominal process with subsegmental atelectasis lung bases. 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 This was present on prior studies but shows greater calcifications today. C diff PCR and GI panel pending. There is also a left inguinal hernia without evidence of obstruction. Patient will be admitted for MASSIEL related to GI losses. Hospital course #Acute kidney injury- prerenal related to hypovolemia from GI losses as the patient presented with Creatinine of 2.55 on admission. improved and trended down to 1.2 during the hospital stay. encourage PO intake. #Gastroenteritis with acute nausea/vomiting/diarrhea. 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 C diff PCR and GI panel negative, responded well to IV fluids, antiemetics p.r.n., PRN Imodium , diet was advanced to regular with good tolerance. Evaulated by Surgery who recommended no surgical intervention planned for this patient with a chronic intra-abdominal mesenteric calcification process. # UTI likely on presentation with history of Enterococcus in urine treated with IV Ampicillin and to be discharged on Amoxicillin for 3 more days to finish 1 week of antibiotics. Discharge plan Continue Antibiotics for 3 more days Ammonium lactate lotion for lower extremities Physical therapy as tolerated Time Attestation Discharge Coordination Time (in mins): 40 Quality: Safe Use of Opioids Does Pt have an Active Cancer Diagnosis on the Problem List?: No Quality: Stroke Does the patient have a stroke diagnosis?: No Physical Exam Vital Signs: Vital Signs: Last Vital Signs Temp 98.1 F 08/23/24 05:28 Pulse 75 08/23/24 05:28 Resp 14 08/23/24 05:28 BP 129/70 08/23/24 05:28 Pulse Ox 93 08/23/24 05:28 O2 Del Method Room Air 08/23/24 05:28 O2 Flow Rate 1 08/22/24 14:00 BMI result Body Mass Index 21.3 Const: Other: Constitutional : interactive, frail looking, not in distress Cardiovascular : no JVP, no lower extremity edema Respiratory : bilateral chest movement, not in resp distress Gastrointestinal: soft, nontender, bowel sounds audible. Skin : Warm, Dry, chronic LE skin changes Neurological : Alert & oriented , No focal deficit Bilateral legs venous dermatitis DS: Data Data Completed and Pending Labs on day of discharge: Laboratory Results - last 24 hr 08/21/24 08/23/24 19:09 05:37 WBC 7.7 RBC 2.90 L Hgb 8.4 L Hct 25.6 L MCV 88.3 MCH 29.0 MCHC 32.8 RDW 15.3 Plt Count 260 MPV 9.7 Immature Gran % (Auto) 0.6 H Neut % (Auto) 61.4 Lymph % (Auto) 20.7 Spencer % (Auto) 11.9 H Eos % (Auto) 5.0 H Baso % (Auto) 0.4 Lymph # (Auto) 1.6 Spencer # (Auto) 0.9 Eos # (Auto) 0.4 Baso # (Auto) 0.0 Abs Immat Gran (auto) 0.05 H Absolute Neuts (auto) 4.8 Absolute Nucleated RBC 0.000 Nucleated RBC % (auto) 0.0 Sodium 139 Potassium 3.5 Chloride 111 H Carbon Dioxide 25 Anion Gap 7 L BUN 21 H Creatinine 1.05 Estim Creat Clear Calc 41.2 Estimated GFR > 60 Random Glucose 96 Calcium 7.7 L Stl C. cayetanensis PCR Not Detected Stool Rotavirus A PCR Not Detected Stl Adenov F 40/41 PCR Not Detected Stool Astrovirus (PCR) Not Detected Stool Campylobacter PCR Not Detected Stool Cryptosporidium PCR Not Detected Stl Sh Tox Pr E STEC PCR Not Detected Stool E coli O157 PCR Not applicable Stl Enterotoxigenic E PCR Not Detected Stool EPEC (PCR) Not Detected Stool EAEC (PCR) Not Detected Stl E. histolytica PCR Not Detected Stool Giardia Lamblia PCR Not Detected Stl P. shigelloides PCR Not Detected Stool Salmonella PCR Not Detected Stool Sapovirus (PCR) Not Detected Stl Shigella/EIEC PCR Not Detected St Y.enterocolitica PCR Not Detected Stool Vibrio (PCR) Not Detected Stl Vibrio cholerae PCR Not Detected Stl Norovirus GI/GII PCR Not Detected Preliminary micro results at discharge 08/20/24 12:25 Blood Culture - Preliminary Blood - Venous No growth after 48 hours. 08/20/24 12:17 Blood Culture - Preliminary Blood - Venous No growth after 48 hours. Discharge Plan Discharge Anticipated Discharge Date/Time: 08/23/24 12:27 Patient Disposition: Xfer [facility] Discharge Diagnosis: UTI Acute kidney injury Referrals: Physician,Unknown J [Primary Care Provider] - 1 Week Discharge Medications: New ammonium lactate 12 % Lotion 1 appl topical BID Qty: 225 0RF Protocol: Apply to: Apply to: lower extremities amoxicillin 500 mg tablet 500 mg PO BID Qty: 6 0RF Continued atorvastatin 80 mg Tablet 40 mg PO BEDTIME cyanocobalamin (vitamin B-12) [Vitamin B-12] 1,000 mcg Tablet 1,000 mcg PO DAILY hydrochlorothiazide 25 mg Tablet 12.5 mg PO DAILY calcium carbonate-vitamin D3 600 mg-5 mcg (200 unit) Tablet 1 tab PO DAILY aspirin 81 mg Tablet,Delayed Release (Dr/Ec) 81 mg PO DAILY Qty: 0 0RF Discharge Orders: Discharge Order (Routine); Ordered 08/23/24 Ordered By: Lexie Lujan Diet: Advance to usual diet Activity on Discharge: As tolerated Stand Alone Forms: Patient Portal Discharge page Print Language: [place] Care Plan Goals: Continue Antibiotics for 3 more days Ammonium lactate lotion for lower extremities Physical therapy as tolerated Bilateral heels intact tissue, offload pressure and protect from friction with foam elevate with pillows Moisture associated skin injury to sacrum Bilateral leg venous dermatitis Recommendations: 1. Turn and Reposition every 2 hours and as needed for patient comfort.? Use pillows or wedges to support off loading positions. Waffle cushion in place 2. Off Load all bony prominences with use of pillows and heel boots if needed.? Apply Preventative foams where needed. ? 3. Monitor for incontinence and moisture control, use barrier creams when needed for prevention and treatment. 4. Provide adequate and supplemental nutrition.? 5. Order low air loss mattress. 6. Bilateral Lower Legs - Cleanse with PH Balanced Donny Kinney, apply vaseline to lower legs cover open wounds with xeroform, cover with ABD pad, & Gauze wrap. Change Daily. 7. Sacrum - Off Load Pressure with Q2 hr turns and use of pillows - Ensure Waffle cushion is in use when up to recliner chair. Cleanse with PH balance spray or wipes, pat dry. ?Apply thin layer of Triad to wound bed. Do not remove all of paste between applications as this may cause further skin damage.? Cover with foam dressing to aid in off loading and protection from friction. 8. Bilateral Heels - Elevate heels off of surface of bed and recliner with use of pillows. Routine cleansing, pat dry. Apply skin prep allow to dry. Apply Foam dressing to heel peel back and assess Q shift and change every 5 days and PRN. Health Concerns: Acute kidney injury UTI Plan of Treatment: Amoxicillin Assessment: as above
[2024-08-23] MEDS: Ampicillin Sodium 1 GM in 0.9 % Sodium Chloride 100 ML IV (11:08)
[2024-08-23] MEDS: Aspirin Enteric Coated 81 MG TABLET.DR PO (11:08)
[2024-08-23] MEDS: 0.9 % Sodium Chloride Flush 3 ML SYRINGE IVFLUSH (11:08)
--- NOTE | 2024-08-23 11:24 | MHC.CM.PN ---
Addendum entered by Della Bernal RN 08/23/24 11:42: CM spoke w/ /hcp Sherine who is aware of dc @2pm. Original Note: Per MD rounds patient medically cleared for dc to [facility]. Patient has accepted a bed at [facility]. BLS transport scheduled for 2pm. Patient, RN, and MD aware. Attempted to call to inform of dc plan, no answer and VM box full x2.
[2024-08-23 13:17] VITALS: BP 113/63; PULSE 91; RESP 16; TEMP 37.2; O2SAT 95
== END 2024-08-23 15:15 | disposition skilled nursing facility (03) | DRG 394 ==
LOC: HO.ED 15:46 → HO.EDOVER 16:17 → HO.S3 08-21 11:22
PROVIDERS: Physician Assistant Medical; Student in an Organized Health Care Education/Training Program; Admitting Provider Physician Assistant; Emergency Provider Student in an Organized Health Care Education/Training Program; PCP Internal Medicine; Visit Provider Hospitalist
DX: K65.4 Sclerosing mesenteritis (principal); N17.9 Acute kidney failure, unspecified; N39.0 Urinary tract infection, site not specified; K52.9 Noninfective gastroenteritis and colitis, unspecified; E86.1 Hypovolemia; Z86.73 Personal history of transient ischemic attack (TIA), and cerebral infarction without residual deficits; I25.2 Old myocardial infarction; Z20.822 Contact with and (suspected) exposure to COVID-19; Z79.82 Long term (current) use of aspirin; Z79.899 Other long term (current) drug therapy
CPT/HCPCS: 0241U; 36415; 71045; 74176; 80048; 80053; 81001; 82140; 83605; 83735; 84484; 85025; 87040; 87086; 87493; 87507; 89055; 93005; 97110; 97162; 99285; J0290; J1650; J7120

== ENCOUNTER → 2024-08-20 11:22 | Outpatient (BNV) | payer MEDICARE, SELFPAY | PROVIDERS: Emergency Provider Student in an Organized Health Care Education/Training Program; Visit Provider Internal Medicine | DX: I49.1 Atrial premature depolarization (principal) | CPT/HCPCS: 93010 ==

== ENCOUNTER → 2024-08-20 12:06 | Outpatient (BNV) | payer MEDICARE, SELFPAY | PROVIDERS: Emergency Provider Student in an Organized Health Care Education/Training Program; Visit Provider Radiology Diagnostic Radiology | DX: K40.90 Unilateral inguinal hernia, without obstruction or gangrene, not specified as recurrent (principal); J98.11 Atelectasis | CPT/HCPCS: 74176 ==

== ENCOUNTER → 2024-08-20 16:04 | Outpatient (BNV) | payer OTHER, MEDICARE, SELFPAY | PROVIDERS: Admitting Provider Physician Assistant; Emergency Provider Student in an Organized Health Care Education/Training Program; Visit Provider Student in an Organized Health Care Education/Training Program | DX: K66.8 Other specified disorders of peritoneum (principal); R19.7 Diarrhea, unspecified; R09.02 Hypoxemia; I10 Essential (primary) hypertension; N17.9 Acute kidney failure, unspecified; N39.0 Urinary tract infection, site not specified | CPT/HCPCS: 99223; 99232; 99233; 99239 ==

== ENCOUNTER → 2024-08-20 16:04 | Outpatient (BNV) | payer OTHER, MEDICARE, SELFPAY | PROVIDERS: Admitting Provider Physician Assistant; Emergency Provider Student in an Organized Health Care Education/Training Program; Visit Provider Surgery | DX: K40.90 Unilateral inguinal hernia, without obstruction or gangrene, not specified as recurrent (principal); K66.8 Other specified disorders of peritoneum | CPT/HCPCS: 99222 ==

== ENCOUNTER 2025-02-18 17:56 | Inpatient (IN) | payer OTHER, SELFPAY ==
--- NOTE | ~2025-02-18 | CT_ITS ---
CLINICAL HISTORY: ? hernia in the left inginal area. Unable to urina CT abdomen and pelvis with contrast Comparison: CT/CA/SR - CT ABDOMEN PELVIS WITHOUT IV CONTRAST - 08/20/24 13:01 EDT Findings: Minimal bibasilar atelectasis versus scarring. Coronary artery calcifications are present. Probable small, vague gallstone within the gallbladder lumen. The gallbladder appears mildly distended. No CT evidence for acute cholecystitis. The solid organs are within normal limits. There is dtak-[id number] bilateral hydronephrosis with mild, diffuse bilateral hydroureter. No bowel obstruction, pneumoperitoneum, or pneumatosis. There is colonic diverticulosis without convincing CT evidence for acute diverticulitis. There is redemonstration of coarse calcification within the mesentery to the left of the midline, not significantly changed in appearance as compared to the prior exam. Moderate left inguinal hernia present containing fat and loops of nondilated colon. Minimal fluid present within the left inguinal hernia sac. Pelvic contents unremarkable. The bladder is moderately distended with fluid. Irregular area of increased attenuation identified dependently within the bladder lumen, suggesting blood products. The prostate gland appears enlarged. Minimal free fluid present within the pelvis. Nonvisualization of the appendix. No acute fracture visualized. There is grade 1 anterolisthesis of L4 on L5. Multilevel degenerative central canal stenosis present at the lumbar spine. IMPRESSION: 1. Irregular area of increased attenuation identified dependently within the bladder lumen, suggesting blood products. An underlying mass is not excluded on this examination. There is prostatomegaly in the bladder is moderately distended with fluid. 2. Uols-no-dojhtbcb bilateral hydronephrosis with mild, diffuse bilateral hydroureter, possibly related to bladder outlet obstruction given the presence of prostatomegaly and probable blood products within the bladder lumen. 3. Moderate left inguinal hernia redemonstrated containing fat and loops of nondilated distal colon. Minimal fluid also identified within the hernia sac. Recommend clinical correlation to exclude developing strangulation. No bowel obstruction. 4. Cholelithiasis. No CT evidence for acute cholecystitis. 5. Colonic diverticulosis. No convincing CT evidence for acute diverticulitis. 6. Coarse nonspecific calcification redemonstrated within the mesentery to the left of the midline . A similar finding was present on the prior exam. This document has been electronically signed by: Chito Mcfarland MD on 02/18/2025 22:32:24
[2025-02-18 18:21] VITALS: BP 168/82; PULSE 96; RESP 19; TEMP 36.4; O2SAT 96; BMI 18.9
[2025-02-18 19:40] VITALS: BP 165/78; PULSE 101; RESP 20; TEMP 36.8; O2SAT 95
--- NOTE | 2025-02-18 19:55 | ED.MALEGU ---
HPI - Male Genitourinary General Chief complaint: Urogenital-Male Stated complaint: Accidentally cut himself while urinating Time Seen by Provider: 02/18/25 19:41 History of Present Illness HPI Narrative: Patient is an 89-year-old male presented today claims that he was urinating and his penis got traumatize. Patient unable to give detailed. Related Data Home Medications ?Medication ?Instructions ?Recorded ?Confirmed atorvastatin 80 mg tablet 40 mg PO BEDTIME 08/18/23 08/20/24 cyanocobalamin (vitamin B-12) 1,000 mcg PO DAILY 08/20/24 08/20/24 1,000 mcg tablet (Vitamin B-12) hydrochlorothiazide 25 mg tablet 12.5 mg PO DAILY 08/20/24 08/20/24 calcium 600 mg (as 1 tab PO DAILY 08/21/24 08/21/24 carbonate)-vitamin D3 5 mcg (200 unit) tablet Previous Rx's ?Medication ?Instructions ?Recorded aspirin 81 mg tablet,delayed 81 mg PO DAILY #0 tabs 06/03/23 release ammonium lactate 12 % lotion 1 appl topical BID #225 grams 08/22/24 amoxicillin 500 mg tablet 500 mg PO BID #6 tabs 08/22/24 Allergies Allergy/AdvReac Type Severity Reaction Status Date / Time No Known Allergies (No Known Allergy Verified 02/18/25 18:25 Allergies*) Review of Systems Review of Systems: No chest pain or shortness of breath. Able to urinate. [facility] Past Medical History Attestation statement: The following information was validated with the patient. Medical History Calcified mesenteric mass Left inguinal hernia Abnormal CT scan Inguinal hernia with strangulation TIA (transient ischemic attack) Hypercholesterolemia Hypertension Surgical History History of right inguinal hernia repair Social History Social History Household Members: Spouse Housing: House Housing Other:: From STR Do you presently have visiting nurse or other home services: Yes ([employer]) Unable to assess alcohol history related to: Unknown Alcohol intake: former Patient Tobacco Use Status: Never used Tobacco e-Cigarette/Vaping Use: Never Used Second Hand Smoke Exposure: No Advance Directives: Yes Advance Directives on File: Yes Advance Directives Date on File: 09/17/22 service: No Current occupational status: retired Physical Exam Vital Signs: Vital Signs: Last Vital Signs Temp 98.4 F 02/18/25 22:23 Pulse 109 H 02/18/25 22:23 Resp 20 02/18/25 22:23 BP 165/78 H 02/18/25 19:40 Pulse Ox 94 02/18/25 22:28 O2 Del Method Room Air 02/18/25 22:28 O2 Flow Rate 2 02/18/25 22:28 BMI result Body Mass Index 18.9 Medications Administered Discontinued Medications Generic Name Dose Route Start Last Admin Trade Name Freq PRN Reason Stop Dose Admin Ceftriaxone Sodium 1 gm 02/18/25 23:22 02/18/25 23:48 Ceftriaxone Sodium 1 Gm Vial IVPUSH 02/18/25 23:23 1 gm ONCE ONE Administration Sodium Chloride 1,000 mls @ 999 mls/hr 02/18/25 21:00 02/18/25 22:28 Ns IV 02/18/25 22:00 Infused .Q1H1M FERNANDO Infusion Iohexol 85 ml 02/18/25 21:13 02/18/25 21:13 Iohexol 350 Mg/Ml 100 Ml Infus..Btl IV 02/18/25 21:14 85 ml ONCE ONE Administration Lidocaine HCl 10 ml 02/18/25 21:55 02/18/25 22:53 Lidocaine Hcl 2 % Urojet 10 Ml Jel.Pf.Kathy TOPICAL 02/18/25 21:56 10 ml ONCE ONE Administration Medical Decision Making Medical Decision Making MDM Narrative: I reviewed patient's previous record he definitely had a left inguinal hernia in the past. There is documentation from surgery that when patient was getting his right repaired there was a left inguinal hernia 8 was not exquisitely tender. Patient has had phimosis. There is blood noted at the meatus. Can not ascertain as to what is causing the bleeding. Patient has no significant complaints. No chest pain or shortness of breath no abdominal pain. No blood in the stool. Will get labs. Will get CT scan of the abdomen. Currently in stable condition. CT scan showed moderate hydro likely from an outlet obstruction. We were able to put in a Griffiths. I prepped the penis. Subsequently was able the cleaned off all the clots that is forearm behind the phimosis. A 16 [address] [place] coude was inserted. It drained nicely. Hooked up to the Griffiths. There is no retention anymore. Patient's urine was infected. We did culture lactate was less than 2 there is no evidence for severe sepsis I reviewed patient's previous labs including previous culture results. Will start patient on Rocephin. Will admit patient for further evaluation. Hospitalist team consulted Differential Diagnosis Differential Diagnoses: The differential diagnosis associated with the presentation includes Urinary retention, UTI Admission/Observation Consideration of admission/observation: Escalation of care including admission/observation considered Consult Healthcare Provider Management of the patient was discussed with: Suction Drum Drier Operator (Hospitalist) Lab Data MDM Lab Attestation statement: I reviewed the patient's lab results. 02/18/25 20:14 02/18/25 20:14 Labs: Lab Results 02/18/25 02/18/25 02/18/25 Range/Units 20:14 20:20 22:22 WBC 9.8 (4.8-10.8) X10*3/uL RBC 3.13 L (4.60-5.80) X10*6/uL Hgb 9.3 L (14.0-18.0) g/dl Hct 27.5 L (42.0-52.0) % MCV 87.9 (80.0-98.0) fL MCH 29.7 (27.0-33.0) pg MCHC 33.8 (31.0-36.0) g/dl RDW 15.0 (11.0-16.0) % Plt Count 162 D (160-400) X10*3/uL MPV 10.4 (9.4-12.4) fL Immature Gran % (Auto) 0.2 (0.0-0.4) % Neut % (Auto) 78.6 H (45-73) % Lymph % (Auto) 12.3 L (20-40) % Kaufman % (Auto) 8.1 (2-11) % Eos % (Auto) 0.6 (0-4) % Baso % (Auto) 0.2 (0-2) % Lymph # (Auto) 1.2 (1.2-4.9) X10*3/uL [place]aufman # (Auto) 0.8 (0.1-1.2) X10*3/uL Eos # (Auto) 0.1 (0.0-0.4) X10*3/uL Baso # (Auto) 0.0 (0.0-0.2) X10*3/uL Abs Immat Gran (auto) 0.02 (0.00-0.03) X10*3/uL Absolute Neuts (auto) 7.7 (2.0-8.3) x10*3/uL Absolute Nucleated RBC 0.000 (0.0-0.012) X10*3/uL Nucleated RBC % (auto) 0.0 (0.0-0.2) /100WBC VBG pH 7.35 (7.32-7.43) VBG pCO2 53 mmHg VBG pO2 40 mmHg VBG HCO3 29 H (22-26) mmol/L VBG O2 Saturation 57.0 % VBG Base Excess 3.3 mmol/L Sodium 140 (135-145) mmol/L Potassium 3.7 (3.3-5.1) mmol/L Chloride 105 (96-108) mmol/L Carbon Dioxide 28 (22-29) mmol/L Anion Gap 11 L (12-20) BUN 34 H (9-16) mg/dL Creatinine 1.54 H (0.5-1.4) mg/dL Estim Creat Clear Calc 24.9 Estimated GFR 43 Random Glucose 110 (60-115) mg/dL Lactic Acid 1.5 (0.5-2.0) mmol/L Calcium 9.8 D (8.4-10.2) mg/dL Total Bilirubin 0.4 (0.0-1.0) mg/dL Direct Bilirubin 0.2 (0.0-0.5) mg/dL AST 30 (5-37) U/L ALT 14 (0-40) U/L Alkaline Phosphatase 79 (39-117) U/L Total Protein 7.0 (6.5-8.0) g/dL Albumin 4.1 (3.5-5.0) g/dL Lipase 47 (8-78) U/L Urine Color [place] Urine Appearance Hazy Urine pH 7.0 (5.0-9.0) Ur Specific [place] 1.020 (1.005-1.025) Urine Protein 300 (3+) H (Neg-Trace) mg/dL Urine Glucose (UA) 100 H (Negative) mg/dL Urine Ketones Trace (Negative) mg/dL Urine Blood Large (3+) H (Negative) Urine Nitrite Positive H (Negative) Ur Leukocyte Esterase Large (3+) H (Negative) Urine RBC >20 H (0-2) /HPF Urine WBC 6-10 H (0-5) /HPF Ur Squamous Epith Cells 0-2 (0-2) /HPF Urine Bacteria 4+ (None Seen) Hyaline Casts 0-2 (0-2) /LPF Independent Interpretation I performed an independent interpretation of an: CT Scan (Positive hydronephrosis) Radiology Impression Discussion of test interpretation with radiology: I have reviewed the radiologist's reading. External Record Review External record reviewed: Inpatient record Prescription Management History of dementia Chronic Conditions Patient?s care impacted by: Hypertension Social Determinants Patient?s care significantly limited by Social Determinants of Health including: Problems related to primary support group Critical Care Time Critical Care Time Critical Care Time: Yes Total Critical Care Time: 40 Attestation: I have personally provided 40 minutes of critical care time exclusive of time spent on separately billable procedures. ?Time includes review of lab data, radiology results, discussion with consultants, and monitoring for potential decompensation. ?Interventions were performed as documented above Discharge Plan Discharge Clinical Impression: Acute urinary retention, Urinary tract infection Patient Disposition: Admitted As Inpatient
[2025-02-18 20:21] LABS: Hematocrit 27.5 % (42.0-52.0); Hemoglobin 9.3 g/dl (14.0-18.0); Imm Gran Abs Auto 0.02 X10*3/uL (0.00-0.03); Imm Gran Pct Auto 0.2 % (0.0-0.4); Lymphocytes Absolute Auto 1.2 X10*3/uL (1.2-4.9); MANUAL DIFF FLAG NO; Mean Corpuscular HGB Conc 33.8 g/dl (31.0-36.0); Mean Corpuscular Hemoglobin 29.7 pg (27.0-33.0); Mean Corpuscular Volume 87.9 fL (80.0-98.0); NRBC Abs Auto 0.000 X10*3/uL (0.0-0.012); NRBC Pct Auto 0.0 /100WBC (0.0-0.2); Platelet Count 162 X10*3/uL (160-400); Red Blood Count 3.13 X10*6/uL (4.60-5.80); White Blood Count 9.8 X10*3/uL (4.8-10.8)
[2025-02-18 20:23] LABS: Venous Blood Gas Refer to POC result
[2025-02-18 20:24] LABS: VBG HCO3 29 mmol/L (22-26); VBG O2 % Saturation 57.0 %
[2025-02-18 20:39] LABS: Alanine Aminotransferase 14 U/L (0-40); Albumin Level 4.1 g/dL (3.5-5.0); Alkaline Phosphatase 79 U/L (39-117); Anion Gap 11 (12-20); Aspartate Amino Transferase 30 U/L (5-37); Blood Urea Nitrogen 34 mg/dL (9-16); Calcium 9.8 mg/dL (8.4-10.2); Carbon Dioxide 28 mmol/L (22-29); Chloride 105 mmol/L (96-108); Creatinine Clr Calc Pharmacy 24.9; Estimated Glomerular Filt Rate 43; Lipase 47 U/L (8-78); Potassium 3.7 mmol/L (3.3-5.1); Sodium 140 mmol/L (135-145); Total Protein 7.0 g/dL (6.5-8.0)
[2025-02-18] MEDS: iohexoL 350 MG/ML 100 ML INFUS..BTL 85 ML IV (21:13)
[2025-02-18 22:23] VITALS: PULSE 109; RESP 20; TEMP 36.9; O2SAT 87
--- NOTE | 2025-02-18 22:26 | PC.NURSE ---
pts O2 sat noted to be 87%on room air, placed pt on 2L NC, improvement to 92%
[2025-02-18 22:28] VITALS: O2SAT 94
[2025-02-18 22:42] LABS: Appearance Urine Hazy; Glucose Urine UA 100 mg/dL (Negative); PH 7.0 (5.0-9.0); Specific Gravity - Urine 1.020 (1.005-1.025); UMIC TRIGGER UACC YES
[2025-02-18 22:48] LABS: UACC Culture Trigger YES
[2025-02-18] MEDS: Lidocaine HCl 2 % Urojet 10 ML JEL.PF.APP TOPICAL (22:53)
[2025-02-19] VITALS (8 sets, daily range): BP systolic 91–127; BP diastolic 38–61; PULSE 72–88; RESP 14–20; TEMP 36.2–37.6; O2SAT 92–98; BMI 21.1
[2025-02-19] MEDS: Lactated Ringers 1,000 ML 50 ML IVCONT ×2 (00:06→17:17)
--- NOTE | 2025-02-19 03:20 | P.HPHOSP_ITS ---
History of Present Illness Date of Service: 02/19/25 Attending physician on admission: Deric Real Chief Complaint: penile trauma Patient is an 89-year-old male with a past medical history significant for phimosis, left inguinal hernia, TIA, HTN and HLD, who presented to the ED due to reported penile trauma. The patient reports that he hit his penis while urinating and has had swelling. The patient is a poor historian and unable to provide any additional history. Upon further examination in the emergency room it was determined that the patient has urethral swelling secondary to gross hematuria and a large blood clot in the urethra. There were able to place a coude catheter in the ED. UA came back positive for UTI. He also has a nonreducible left inguinal hernia. Dr. Osborne was able to review the abdominopelvic CT and will follow patient, no surgical emergency. Review of Systems 2 Review of Systems: Yes Unobtainable due to mental status PMFSH Medical History Calcified mesenteric mass Left inguinal hernia Abnormal CT scan Inguinal hernia with strangulation TIA (transient ischemic attack) Hypercholesterolemia Hypertension Surgical History History of right inguinal hernia repair Social History Household Members: Spouse Housing: House Housing Other:: From STR Do you presently have visiting nurse or other home services: Yes ([employer]) Unable to assess alcohol history related to: Unknown Alcohol intake: former Patient Tobacco Use Status: Never used Tobacco e-Cigarette/Vaping Use: Never Used Second Hand Smoke Exposure: No Advance Directives: Yes Advance Directives on File: Yes Advance Directives Date on File: 09/17/22 service: No Current occupational status: retired Meds Allergies Allergy/AdvReac Type Severity Reaction Status Date / Time No Known Allergies (No Known Allergy Verified 02/18/25 18:25 Allergies*) Active Medications: Current Medications Acetaminophen (Acetaminophen 325 Mg Tablet) 650 mg PO Q6H PRN PRN Reason: Pain, Mild 1-3,fever,headache Calcium Carbonate (Calcium Carbonate 750 Mg Tab.Chew) 750 mg PO Q4H PRN PRN Reason: Heartburn Heparin Sodium (Porcine) (Heparin Sodium,Porcine 5,000 Unit/Ml Vial) 5,000 unit SUBCUT Q8H COUNTS INCLUDE 234 BEDS AT THE [facility] Last Admin: 02/19/25 00:12 Dose: Not Given Lactated Ringer's (Lr) 1,000 mls @ 50 mls/hr IVCONT .Q20H COUNTS INCLUDE 234 BEDS AT THE [facility] Last Admin: 02/19/25 00:06 Dose: 50 mls/hr Ciprofloxacin (Cipro) 400 mg in 200 mls @ 200 mls/hr IV Q24H COUNTS INCLUDE 234 BEDS AT THE [facility] Last Admin: 02/19/25 02:49 Dose: 200 mls/hr Magnesium Hydroxide (Milk Of Magnesia 30 Ml Oral.Susp) 30 ml PO DAILY PRN PRN Reason: Constipation Melatonin (Melatonin 3 Mg Tablet) 6 mg PO BEDTIME PRN PRN Reason: Insomnia Sodium Chloride (0.9 % Sodium Chloride Flush 3 Ml Syringe) 3 ml IVFLUSH QSHIFT COUNTS INCLUDE 234 BEDS AT THE [facility] Last Admin: 02/19/25 00:09 Dose: Not Given Home Medications ?Medication ?Instructions ?Recorded ?Confirmed ?Last Taken ?Type atorvastatin 80 mg tablet 40 mg PO BEDTIME 08/18/23 Unknown History cyanocobalamin (vitamin B-12) 1,000 mcg PO DAILY 08/2008/20/24 Unknown History 1,000 mcg tablet (Vitamin B-12) hydrochlorothiazide 25 mg tablet 12.5 mg PO DAILY 08/1108/20/24 Unknown History calcium 600 mg (as 1 tab PO DAILY 08/21/2408/11 Unknown History carbonate)-vitamin D3 5 mcg (200 unit) tablet Physical Exam 2 Vital Signs and Narrative: Vital Signs: Last Vital Signs Temp 98.6 F 02/19/25 02:37 Pulse 88 02/19/25 02:37 Resp 14 02/19/25 02:37 BP 127/59 L 02/19/25 02:37 Pulse Ox 96 02/19/25 02:37 O2 Del Method Nasal Cannula 02/19/25 02:37 O2 Flow Rate 1 02/19/25 02:37 BMI result Body Mass Index 18.9 General: Alert. oriented to person but not place or time. no acute distress Resp: CTA bilaterally CVS: S1, S2, RRR GI/: +BS, NT, no distention. catheter draining cranberry colored urine. no scrotal edema or erythema. Skin: Warm, dry. chronic venosu stasis bilateral LE. in increased warmth or erythema. Neuro: Cranial nerves II-XII grossly intact bilaterally. Motor grossly intact bilaterally Extremities: No pitting edema Psych: Confused Results Labs 02/19/25 04:19 02/19/25 04:19 Labs: Laboratory Results - last 24 hr 02/18/25 02/18/25 02/18/25 20:14 20:20 22:22 MCV 87.9 MCH 29.7 MCHC 33.8 RDW 15.0 Plt Count 162 D MPV 10.4 Immature Gran % (Auto) 0.2 Neut % (Auto) 78.6 H Lymph % (Auto) 12.3 L [place] % (Auto) 8.1 Eos % (Auto) 0.6 Baso % (Auto) 0.2 Lymph # (Auto) 1.2 [place] # (Auto) 0.8 Eos # (Auto) 0.1 Baso # (Auto) 0.0 Abs Immat Gran (auto) 0.02 Absolute Neuts (auto) 7.7 Absolute Nucleated RBC 0.000 Nucleated RBC % (auto) 0.0 VBG pH 7.35 VBG pCO2 53 VBG pO2 40 VBG HCO3 29 H VBG O2 Saturation 57.0 VBG Base Excess 3.3 Anion Gap 11 L Estim Creat Clear Calc 24.9 Estimated GFR 43 Random Glucose 110 Lactic Acid 1.5 Calcium 9.8 D Total Bilirubin 0.4 Direct Bilirubin 0.2 AST 30 ALT 14 Alkaline Phosphatase 79 Total Protein 7.0 Albumin 4.1 Lipase 47 Urine Color [place] Urine Appearance Hazy Urine pH 7.0 Ur Specific [place] 1.020 Urine Protein 300 (3+) H Urine Glucose (UA) 100 H Urine Ketones Trace Urine Blood Large (3+) H Urine Nitrite Positive H Ur Leukocyte Esterase Large (3+) H Urine RBC >20 H Urine WBC 6-10 H Ur Squamous Epith Cells 0-2 Urine Bacteria 4+ Hyaline Casts 0-2 Assessment and Plan (1) Acute metabolic encephalopathy: Status: Acute (2) Urinary tract infection: Status: Acute (3) Acute urinary retention: Status: Acute (4) Gross hematuria: Status: Acute (5) Inguinal hernia: Status: Acute (6) Acute kidney injury superimposed on CKD: Status: Acute (7) Chronic anemia: Status: Acute Plan Patient is an 89-year-old male with a past medical history significant for phimosis, left inguinal hernia, TIA, HTN and HLD, who presented to the ED due to reported penile trauma. acute metabolic encephalopathy due to Urinary tract infection with urinary retention, bilateral hydroureteronephrosis and gross hematuria - WBC 9.8, vital signs stable, no lactic acidosis, no sepsis - UA positive, culture pending - abdominopelvic CT with Irregular area of increased attenuation identified dependently within the bladder lumen, suggesting blood products. An underlying mass is not excluded on this examination. There is prostatomegaly in the bladder is moderately distended with fluid.[id number] bilateral hydronephrosis with mild, diffuse bilateral hydroureter, possibly related to bladder outlet obstruction given the presence of prostatomegaly and probable blood products within the bladder lumen. Moderate left inguinal hernia redemonstrated containing fat and loops of nondilated distal colon. Minimal fluid also identified within the hernia sac. Recommend clinical correlation to exclude developing strangulation. No bowel obstruction.Cholelithiasis. No CT evidence for acute cholecystitis.Colonic diverticulosis. No convincing CT evidence for acute diverticulitis.Coarse nonspecific calcification redemonstrated within the mesentery to the left of the midline . A similar finding was present on the prior exam. - patient started on ceftriaxone in ED due to UTI, reviewed previous cultures will start Cipro - LR 50/HR - urology consult - follow CBC and BMP Inguinal hernia - appears chronic in nature, patient not complaining of pain - abdominopelvic CT reviewed by Dr. Osborne, no surgical emergency - surgical consult MASSIEL On CKD - creatinine 1.54 - avoid nephrotoxins when possible - monitor BMP Chronic anemia, stable - hemoglobin 9.3, hematocrit 27.5 - no need for blood transfusion at this time - monitor CBC HTN - continue home meds HLD - continue home meds Med rec pending Full code VTE prophylaxis: Pneumoboots Patient with acute metabolic encephalopathy secondary to acute urinary tract infection with urinary retention, bilateral hydroureteronephrosis and gross hematuria, requiring admission for at least 2 midnights stay for IV antibiotics and urology consultation. Quality Stroke Does the patient have a stroke diagnosis?: No VTE Prior VTE?: No VTE Risk Level:: Medical - moderate - high VTE Device Contraindication: N/A - Device Ordered VTE Drug Contraindication: Treatment Not Indicated
[2025-02-19 04:46] LABS: MANUAL DIFF FLAG NO
[2025-02-19 04:53] LABS: Hematocrit 25.0 % (42.0-52.0); Hemoglobin 8.3 g/dl (14.0-18.0); Imm Gran Abs Auto 0.06 X10*3/uL (0.00-0.03); Imm Gran Pct Auto 0.5 % (0.0-0.4); Lymphocytes Absolute Auto 0.3 X10*3/uL (1.2-4.9); Mean Corpuscular HGB Conc 33.2 g/dl (31.0-36.0); Mean Corpuscular Hemoglobin 29.4 pg (27.0-33.0); Mean Corpuscular Volume 88.7 fL (80.0-98.0); NRBC Abs Auto 0.000 X10*3/uL (0.0-0.012); NRBC Pct Auto 0.0 /100WBC (0.0-0.2); Platelet Count 143 X10*3/uL (160-400); Red Blood Count 2.82 X10*6/uL (4.60-5.80); White Blood Count 12.5 X10*3/uL (4.8-10.8)
[2025-02-19 05:06] LABS: Alanine Aminotransferase 10 U/L (0-40); Albumin Level 3.1 g/dL (3.5-5.0); Alkaline Phosphatase 55 U/L (39-117); Anion Gap 13 (12-20); Aspartate Amino Transferase 29 U/L (5-37); Blood Urea Nitrogen 33 mg/dL (9-16); Calcium 8.8 mg/dL (8.4-10.2); Carbon Dioxide 24 mmol/L (22-29); Chloride 107 mmol/L (96-108); Creatinine Clr Calc Pharmacy 22.0; Estimated Glomerular Filt Rate 37; Potassium 3.4 mmol/L (3.3-5.1); Sodium 141 mmol/L (135-145); Total Protein 5.6 g/dL (6.5-8.0)
--- NOTE | 2025-02-19 08:52 | P.CONGS_ITS ---
History of Present Illness Consult details Consult date: 02/19/25 <Sarah Hutchins PA-C - Last Filed: 02/19/25 09:14> Reason for consult: hernia (left inguinal hernia ) <Sarah Hutchins PA-C - Last Filed: 02/19/25 09:14> Narrative: Patient is an 89-year-old male with a past medical history significant for phimosis, left inguinal hernia, TIA, HTN and HLD, who presented to the ED due to reported penile trauma. He was admitted to the hospitalist service for acute metabolic encephalopathy due to urinary tract infection with urinary retention, bilateral hydroureteronephrosis and gross hematuria. CT abd pelvis on admission showed a large inguinal hernia containing bowel. General surgery was therefore consulted. He is unable to answer any interview questions appropriately. < Sarah Htuchins PA-C - Last Filed: 02/19/25 09:14> Review of Systems 2 Review of Systems: Yes Unobtainable due to mental condition <Sarah Hutchins PA-C - Last Filed: 02/19/25 09:14> [facility] Past Medical History Medical History: Medical History Calcified mesenteric mass Left inguinal hernia Abnormal CT scan Inguinal hernia with strangulation TIA (transient ischemic attack) Hypercholesterolemia Hypertension <Sarah Hutchins PA-C - Last Filed: 02/19/25 09:14> Surgical History Surgical History: Surgical History History of right inguinal hernia repair <Sarah Hutchins PA-C - Last Filed: 02/19/25 09:14> Social History Social History: Social History Household Members: Spouse Housing: House Housing Other:: From STR Do you presently have visiting nurse or other home services: Yes ([employer]) Unable to assess alcohol history related to: Unknown Alcohol intake: former Patient Tobacco Use Status: Never used Tobacco e-Cigarette/Vaping Use: Never Used Second Hand Smoke Exposure: No Advance Directives: Yes Advance Directives on File: Yes Advance Directives Date on File: 09/17/22 service: No Current occupational status: retired <Sarah Hutchins PA-C - Last Filed: 02/19/25 09:14> Meds Allergies/Adverse reactions: Allergies Allergy/AdvReac Type Severity Reaction Status Date / Time No Known Allergies (No Known Allergy Verified 02/18/25 18:25 Allergies*) <Sarah Hutchins PA-C - Last Filed: 02/19/25 09:14> Active Medications: Current Medications Acetaminophen (Acetaminophen 325 Mg Tablet) 650 mg PO Q6H PRN PRN Reason: Pain, Mild 1-3,fever,headache Calcium Carbonate (Calcium Carbonate 750 Mg Tab.Chew) 750 mg PO Q4H PRN PRN Reason: Heartburn Lactated Ringer's (Lr) 1,000 mls @ 50 mls/hr IVCONT .Q20H [facility] Last Admin: 02/19/25 00:06 Dose: 50 mls/hr Ciprofloxacin (Cipro) 400 mg in 200 mls @ 200 mls/hr IV Q24H [facility] Last Infusion: 02/19/25 03:52 Dose: Infused Magnesium Hydroxide (Milk Of Magnesia 30 Ml Oral.Susp) 30 ml PO DAILY PRN PRN Reason: Constipation Melatonin (Melatonin 3 Mg Tablet) 6 mg PO BEDTIME PRN PRN Reason: Insomnia Sodium Chloride (0.9 % Sodium Chloride Flush 3 Ml Syringe) 3 ml IVFLUSH QSHIFT [facility] Last Admin: 02/19/25 00:09 Dose: Not Given <Sarah Hutchins PA-C - Last Filed: 02/19/25 09:14> Home medications: Home Medications ?Medication ?Instructions ?Recorded ?Confirmed ?Last Taken ?Type atorvastatin 80 mg tablet 40 mg PO BEDTIME 08/18/23 Unknown History cyanocobalamin (vitamin B-12) 1,000 mcg PO DAILY 08/2008/20/24 Unknown History 1,000 mcg tablet (Vitamin B-12) hydrochlorothiazide 25 mg tablet 12.5 mg PO DAILY 08/1108/20/24 Unknown History calcium 600 mg (as 1 tab PO DAILY 08/21/2408/11 Unknown History carbonate)-vitamin D3 5 mcg (200 unit) tablet <Sarah Hutchins PA-C - Last Filed: 02/19/25 09:14> Physical Exam 2 Vital Signs: Vital Signs: Last Vital Signs Temp 97.9 F 02/19/25 04:45 Pulse 77 02/19/25 08:33 Resp 20 02/19/25 08:33 BP 99/44 L 02/19/25 08:33 Pulse Ox 97 02/19/25 08:33 O2 Del Method Room Air 02/19/25 08:33 O2 Flow Rate 1 02/19/25 04:45 BMI result Body Mass Index 18.9 <Sarah Hutchins PA-C - Last Filed: 02/19/25 09:14> Const: General: no acute distress and tired appearing <BARBIE Andres Last Filed: 02/19/25 09:14> Resp: Effort & Inspection: normal respiratory effort and not tachypneic < BARBIE Andres Last Filed: 02/19/25 09:14> GI: Other: soft, nontender large irreducible left inguinal hernia, nontender, no overlying skin changes <Sarah Hutchins PA-C - Last Filed: 02/19/25 09:14> Inspection: No distended <BARBIE Andres Last Filed: 02/19/25 09:14> Palpation (GI): no guarding <BARBIE Andres Last Filed: 02/19/25 09:14> Percussion: Yes normal to percussion <BARBIE Andres Last Filed: 02/19/25 09:14> : Other: heck in place with georgina hematuria <Sarah Hutchins PA-C - Last Filed: 02/19/25 09:14> Skin: Other: warm and dry <BARBIE Andres Last Filed: 02/19/25 09:14> Results Labs Result diagrams: 02/19/25 04:19 02/19/25 04:19 <BARBIE Andres Last Filed: 02/19/25 09:14> Labs: Abnormal lab results 02/18/25 02/18/25 02/18/25 Range/Units 20:14 20:20 22:22 WBC (4.8-10.8) X10*3/uL RBC 3.13 L (4.60-5.80) X10*6/uL Hgb 9.3 L (14.0-18.0) g/dl Hct 27.5 L (42.0-52.0) % Plt Count (160-400) X10*3/uL Immature Gran % (Auto) (0.0-0.4) % Neut % (Auto) 78.6 H (45-73) % Lymph % (Auto) 12.3 L (20-40) % Lymph # (Auto) (1.2-4.9) X10*3/uL [place] # (Auto) (0.1-1.2) X10*3/uL Abs Immat Gran (auto) (0.00-0.03) X10*3/uL Absolute Neuts (auto) (2.0-8.3) x10*3/uL VBG HCO3 29 H (22-26) mmol/L Anion Gap 11 L (12-20) BUN 34 H (9-16) mg/dL Creatinine 1.54 H (0.5-1.4) mg/dL Total Protein (6.5-8.0) g/dL Albumin (3.5-5.0) g/dL Urine Protein 300 (3+) H (Neg-Trace) mg/dL Urine Glucose (UA) 100 H (Negative) mg/dL Urine Blood Large (3+) H (Negative) Urine Nitrite Positive H (Negative) Ur Leukocyte Esterase Large (3+) H (Negative) Urine RBC >20 H (0-2) /HPF Urine WBC 6-10 H (0-5) /HPF 02/19/25 Range/Units 04:19 WBC 12.5 H (4.8-10.8) X10*3/uL RBC 2.82 L (4.60-5.80) X10*6/uL Hgb 8.3 L (14.0-18.0) g/dl Hct 25.0 L (42.0-52.0) % Plt Count 143 L (160-400) X10*3/uL Immature Gran % (Auto) 0.5 H (0.0-0.4) % Neut % (Auto) 86.2 H (45-73) % Lymph % (Auto) 2.7 L (20-40) % Lymph # (Auto) 0.3 L (1.2-4.9) X10*3/uL [place] # (Auto) 1.3 H (0.1-1.2) X10*3/uL Abs Immat Gran (auto) 0.06 H (0.00-0.03) X10*3/uL Absolute Neuts (auto) 10.8 H (2.0-8.3) x10*3/uL VBG HCO3 (22-26) mmol/L Anion Gap (12-20) BUN 33 H (9-16) mg/dL Creatinine 1.74 H (0.5-1.4) mg/dL Total Protein 5.6 L (6.5-8.0) g/dL Albumin 3.1 L (3.5-5.0) g/dL Urine Protein (Neg-Trace) mg/dL Urine Glucose (UA) (Negative) mg/dL Urine Blood (Negative) Urine Nitrite (Negative) Ur Leukocyte Esterase (Negative) Urine RBC (0-2) /HPF Urine WBC (0-5) /HPF Short CBC 02/18/25 02/19/25 Range/Units 20:14 04:19 WBC 9.8 12.5 H (4.8-10.8) X10*3/uL Hgb 9.3 L 8.3 L (14.0-18.0) g/dl Hct 27.5 L 25.0 L (42.0-52.0) % Plt Count 162 D 143 L (160-400) X10*3/uL BMP 02/18/25 02/19/25 20:14 04:19 Sodium 140 141 Potassium 3.7 3.4 Chloride 105 107 Carbon Dioxide 28 24 BUN 34 H 33 H Creatinine 1.54 H 1.74 H Calcium 9.8 D 8.8 D Liver Function 02/18/25 02/19/25 Range/Units 20:14 04:19 Total Bilirubin 0.4 0.2 (0.0-1.0) mg/dL Direct Bilirubin 0.2 (0.0-0.5) mg/dL AST 30 29 (5-37) U/L ALT 14 10 (0-40) U/L Alkaline Phosphatase 79 55 (39-117) U/L Albumin 4.1 3.1 L (3.5-5.0) g/dL Urine 02/18/25 Range/Units 22:22 Urine Color [place] Urine Appearance Hazy Urine pH 7.0 (5.0-9.0) Ur Specific [place] 1.020 (1.005-1.025) Urine Protein 300 (3+) H (Neg-Trace) mg/dL Urine Glucose (UA) 100 H (Negative) mg/dL All other labs normal. <Sarah Hutchins PA-C - Last Filed: 02/19/25 09:14> Imaging Abdomen CT scan report/results: report reviewed and image reviewed <Sarah Hutchins PA-C - Last Filed: 02/19/25 09:14> Assessment and Plan (1) Inguinal hernia: Status: Acute <Sarah Hutchins PA-C - Last Filed: 02/19/25 09:14> Patient was admitted for urinary tract infection He is noted to have a large left inguinal hernia with bowel loops Cat scan reviewed No obstruction seen Left inguinal hernia is chronically incarcerated - notes from Dr. Mariscal from 2020 reviewed Abdomen is soft and benign No tenderness No urgent surgical intervention necessary The rest of care as per the hospitalist service Seen and examined independently <Jarvis Osborne MD - Last Filed: 02/19/25 09:23> 89-year-old male with a past medical history significant for phimosis, left inguinal hernia, TIA, HTN and HLD admitted to the hospitalist service for acute metabolic encephalopathy due to urinary tract infection with urinary retention, bilateral hydroureteronephrosis and gross hematuria. He was found to have a left inguinal hernia and therefore general surgery consulted. His abdomen is benign- soft nontender, large incarcerated left inguinal hernia. The hernia does not bother him and is chronically incarcerated without evidence of obstruction or strangulation. Cont observation for now. <Sarah Hutchins PA-C - Last Filed: 02/19/25 09:14> Procedures Date of Service Date of Service: 02/19/25 <Sarah Hutchins PA-C - Last Filed: 02/19/25 09:14> 02/19/25 <Jarvis Osborne MD - Last Filed: 02/19/25 09:23>
--- NOTE | 2025-02-19 09:29 | PC.NURSE ---
Pt was sleeping. had eaten breakfast earlier. continues to have hematuria. denies pain. no obvious inj to penis/scrotum. NAD. awaits URO consult and bed.
--- NOTE | 2025-02-19 10:10 | PC.NURSE ---
update to aster Peña with patient permission.
--- NOTE | 2025-02-19 14:26 | PHA.MEDREC ---
Addendum entered by Jennifer Burt RPh 02/19/25 14:35: MED REC REVIEWED BY [facility] Original Note: Pharmacy Consult ? Medication Reconciliation Pharmacy has completed the medication reconciliation. Spoke with pt and he gets meds filled at [facility]; pt not sure last time he took his medications during our interaction. Received list from [facility] and confirmed Med Rec.
--- NOTE | 2025-02-19 14:51 | MHC.CM.PN ---
PT FROM [facility] WHERE HE WILL RTURN WHEN DCD
--- NOTE | 2025-02-19 14:54 | MHC.CM.PN ---
[facility] WHERE HE WILL RETURN WHEN DCD
--- NOTE | 2025-02-19 16:00 | MHC.CM.PN ---
PT FROM HOME WHERE [facility] THE MORNING AND AFTERNOON HIS IS IN [facility] HIS SISTER ANKIT PAN [phone] WAS IN ED WITH PT DC PLAN TBD HIS COUSIN ROSE MARIE S A RECEIVING MANAGER IN [facility] ASSISTS HIM AT HOME WELL HE PROVIDED TRANSPOSITION FOR PT
--- NOTE | 2025-02-19 16:27 | P.CNUR_ITS ---
History of Present Illness Consult details Consult date: 02/19/25 Narrative: Urology consult: Gross hematuria, Phimosis 89-year-old male with a past medical history significant for phimosis, left inguinal hernia, TIA, HTN and HLD, who presented to the ED due to reported penile trauma. The patient reports that he hit his penis while urinating and has had swelling. The patient is a poor historian. There were able to place a coude catheter in the ED. UA came back positive for UTI. General surgery consulted for LIH. Review of Systems 2 Review of Systems: poor historian Yes Other [facility] Past Medical History Medical History Calcified mesenteric mass Left inguinal hernia Abnormal CT scan Inguinal hernia with strangulation TIA (transient ischemic attack) Hypercholesterolemia Hypertension Surgical History Surgical History History of right inguinal hernia repair Social History Social History Household Members: Spouse Housing: House Housing Other:: From [facility] Do you presently have visiting nurse or other home services: Yes ([employer]) Unable to assess alcohol history related to: Unknown Alcohol intake: former Patient Tobacco Use Status: Never used Tobacco e-Cigarette/Vaping Use: Never Used Second Hand Smoke Exposure: No Advance Directives Date on File: 09/17/22 service: Yes Current occupational status: retired Meds Allergies Allergy/AdvReac Type Severity Reaction Status Date / Time No Known Allergies (No Known Allergy Verified 02/18/25 18:25 Allergies*) Active Medications: Current Medications Acetaminophen (Acetaminophen 325 Mg Tablet) 650 mg PO Q6H PRN PRN Reason: Pain, Mild 1-3,fever,headache Calcium Carbonate (Calcium Carbonate 750 Mg Tab.Chew) 750 mg PO Q4H PRN PRN Reason: Heartburn Lactated Ringer's (Lr) 1,000 mls @ 100 mls/hr IVCONT .Q10H [facility] Last Admin: 02/19/25 00:06 Dose: 50 mls/hr Ciprofloxacin (Cipro) 400 mg in 200 mls @ 200 mls/hr IV Q24H [facility] Last Infusion: 02/19/25 03:52 Dose: Infused Magnesium Hydroxide (Milk Of Magnesia 30 Ml Oral.Susp) 30 ml PO DAILY PRN PRN Reason: Constipation Melatonin (Melatonin 3 Mg Tablet) 6 mg PO BEDTIME PRN PRN Reason: Insomnia Sodium Chloride (0.9 % Sodium Chloride Flush 3 Ml Syringe) 3 ml IVFLUSH QSHIFT [facility] Last Admin: 02/19/25 09:30 Dose: Not Given Home Medications ?Medication ?Instructions ?Recorded ?Confirmed ?Last Taken ?Type atorvastatin 80 mg tablet 40 mg PO BEDTIME 08/18/23 Unknown History cyanocobalamin (vitamin B-12) 1,000 mcg PO DAILY 08/2002/19/25 Unknown History 1,000 mcg tablet (Vitamin B-12) hydrochlorothiazide 25 mg tablet 12.5 mg PO DAILY 08/1102/19/25 Unknown History calcium 600 mg (as 1 tab PO DAILY 08/21/2403/07 Unknown History carbonate)-vitamin D3 5 mcg (200 unit) tablet clopidogrel 75 mg tablet 75 mg PO DAILY 02/19/2503/07 Unknown History silver sulfadiazine 1 % topical 1 appl topical MOWEFR 02/19/25 02/19/25 Unknown History cream vitamin E (dl, acetate) 45 mg (100 45 mg PO DAILY 03/0702/19/25 Unknown History unit) capsule Physical Exam 2 Vital Signs: Vital Signs: Last Vital Signs Temp 99.0 F 02/19/25 09:25 Pulse 75 02/19/25 09:25 Resp 18 02/19/25 09:25 BP 99/44 L 02/19/25 08:33 Pulse Ox 95 02/19/25 09:25 O2 Del Method Room Air 02/19/25 09:25 O2 Flow Rate 1 02/19/25 04:45 BMI result Body Mass Index 18.9 : Other: minimal penile swelling, heck in place, urine clearing, no clots Results Labs 02/22/25 05:56 02/23/25 08:28 Labs: Abnormal lab results 02/18/25 02/18/25 02/18/25 Range/Units 20:14 20:20 22:22 WBC (4.8-10.8) X10*3/uL RBC 3.13 L (4.60-5.80) X10*6/uL Hgb 9.3 L (14.0-18.0) g/dl Hct 27.5 L (42.0-52.0) % Plt Count (160-400) X10*3/uL Immature Gran % (Auto) (0.0-0.4) % Neut % (Auto) 78.6 H (45-73) % Lymph % (Auto) 12.3 L (20-40) % Lymph # (Auto) (1.2-4.9) X10*3/uL [place] # (Auto) (0.1-1.2) X10*3/uL Abs Immat Gran (auto) (0.00-0.03) X10*3/uL Absolute Neuts (auto) (2.0-8.3) x10*3/uL VBG HCO3 29 H (22-26) mmol/L Anion Gap 11 L (12-20) BUN 34 H (9-16) mg/dL Creatinine 1.54 H (0.5-1.4) mg/dL Total Protein (6.5-8.0) g/dL Albumin (3.5-5.0) g/dL Urine Protein 300 (3+) H (Neg-Trace) mg/dL Urine Glucose (UA) 100 H (Negative) mg/dL Urine Blood Large (3+) H (Negative) Urine Nitrite Positive H (Negative) Ur Leukocyte Esterase Large (3+) H (Negative) Urine RBC >20 H (0-2) /HPF Urine WBC 6-10 H (0-5) /HPF 02/19/25 Range/Units 04:19 WBC 12.5 H (4.8-10.8) X10*3/uL RBC 2.82 L (4.60-5.80) X10*6/uL Hgb 8.3 L (14.0-18.0) g/dl Hct 25.0 L (42.0-52.0) % Plt Count 143 L (160-400) X10*3/uL Immature Gran % (Auto) 0.5 H (0.0-0.4) % Neut % (Auto) 86.2 H (45-73) % Lymph % (Auto) 2.7 L (20-40) % Lymph # (Auto) 0.3 L (1.2-4.9) X10*3/uL [place] # (Auto) 1.3 H (0.1-1.2) X10*3/uL Abs Immat Gran (auto) 0.06 H (0.00-0.03) X10*3/uL Absolute Neuts (auto) 10.8 H (2.0-8.3) x10*3/uL VBG HCO3 (22-26) mmol/L Anion Gap (12-20) BUN 33 H (9-16) mg/dL Creatinine 1.74 H (0.5-1.4) mg/dL Total Protein 5.6 L (6.5-8.0) g/dL Albumin 3.1 L (3.5-5.0) g/dL Urine Protein (Neg-Trace) mg/dL Urine Glucose (UA) (Negative) mg/dL Urine Blood (Negative) Urine Nitrite (Negative) Ur Leukocyte Esterase (Negative) Urine RBC (0-2) /HPF Urine WBC (0-5) /HPF Short CBC 02/18/25 02/19/25 Range/Units 20:14 04:19 WBC 9.8 12.5 H (4.8-10.8) X10*3/uL Hgb 9.3 L 8.3 L (14.0-18.0) g/dl Hct 27.5 L 25.0 L (42.0-52.0) % Plt Count 162 D 143 L (160-400) X10*3/uL BMP 02/18/25 02/19/25 20:14 04:19 Sodium 140 141 Potassium 3.7 3.4 Chloride 105 107 Carbon Dioxide 28 24 BUN 34 H 33 H Creatinine 1.54 H 1.74 H Calcium 9.8 D 8.8 D Liver Function 02/18/25 02/19/25 Range/Units 20:14 04:19 Total Bilirubin 0.4 0.2 (0.0-1.0) mg/dL Direct Bilirubin 0.2 (0.0-0.5) mg/dL AST 30 29 (5-37) U/L ALT 14 10 (0-40) U/L Alkaline Phosphatase 79 55 (39-117) U/L Albumin 4.1 3.1 L (3.5-5.0) g/dL Urine 02/18/25 Range/Units 22:22 Urine Color [place] Urine Appearance Hazy Urine pH 7.0 (5.0-9.0) Ur Specific [place] 1.020 (1.005-1.025) Urine Protein 300 (3+) H (Neg-Trace) mg/dL Urine Glucose (UA) 100 H (Negative) mg/dL Imaging Abdomen CT scan report/results: report reviewed and image reviewed CT scan - pelvis: report reviewed and image reviewed Additional studies: Date of Service: 08/20/24 EXAMINATION: CT ABDOMEN PELVIS WITHOUT IV CONTRAST HISTORY: abdominal pain COMPARISON: Comparison is made with the prior examination dated 08/18/2023. TECHNIQUE: CT scan of the abdomen and pelvis was performed without contrast using standard departmental protocol. Coronal and sagittal reformatted images were generated and reviewed. Oral contrast material was not administered at the request of the referring physician. This CT exam was performed with one or more of the following dose reduction techniques: automated exposure control, adjustment of the mA and/or kV according to patient size, use of iterative reconstruction technique. DLP: 776 mGy-cm FINDINGS: LOWER CHEST: There is mild scarring at the left lung base. The visualized right lung base is clear.. There is no pleural effusion. CARDIOVASCULATURE: The heart is normal in size. There is no pericardial effusion. LIVER: The liver is normal in size and contour. The liver has an unremarkable unenhanced appearance. GALLBLADDER / BILE DUCTS: The gallbladder is unremarkable. There is no intra or extrahepatic biliary ductal dilatation. SPLEEN: The spleen is normal in size and has an unremarkable unenhanced appearance. PANCREAS: The pancreas has an unremarkable unenhanced appearance. ADRENAL GLANDS: Unremarkable. KIDNEYS/RETROPERITONEUM: No renal calculi are identified. There is no hydronephrosis. Again seen are bilateral renal cysts including a 4.6 cm cyst at the upper pole the right kidney, a 3.3 cm cyst at the lower pole the right kidney, 2.0 cm cyst at the upper pole of the left kidney, a 2.5 cm cyst at the lower pole of the left kidney. LYMPH NODES: No retroperitoneal or pelvic lymphadenopathy is identified. VASCULATURE: The abdominal aorta demonstrates atherosclerotic calcification, but is normal in caliber. MESENTERY/PERITONEUM: No free fluid seen is seen. Again noted is a calcified mass at the root of the mesentery measuring approximately 6.4 x 3.3 x 5.9 cm. This demonstrates greater calcification than on the prior study, particularly to the right of midline. 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 There is no free intraperitoneal gas. STOMACH: The stomach is collapsed, limiting evaluation. SMALL BOWEL: The small bowel is normal in caliber. COLON: There is a left inguinal hernia containing the junction of the descending and sigmoid colon. There is no evidence of bowel obstruction. APPENDIX: The appendix is not seen, however no inflammatory changes are seen adjacent to the cecum. URINARY BLADDER/PELVIC ORGANS: The urinary bladder is unremarkable. The prostate is normal in size. BONES / SOFT TISSUES: There is degenerative disc disease of the spine. IMPRESSION: 1. 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 This demonstrates greater calcification than on the prior study. 2. Left internal hernia containing the junction of the descending and sigmoid colon, without evidence of bowel obstruction. Date of Service: 02/18/25 CT abdomen and pelvis with contrast Comparison: CT/MD/SR - CT ABDOMEN PELVIS WITHOUT IV CONTRAST - 08/20/24 13:01 EDT Findings: Minimal bibasilar atelectasis versus scarring. Coronary artery calcifications are present. Probable small, vague gallstone within the gallbladder lumen. The gallbladder appears mildly distended. No CT evidence for acute cholecystitis. The solid organs are within normal limits. There is [id number] bilateral hydronephrosis with mild, diffuse bilateral hydroureter. No bowel obstruction, pneumoperitoneum, or pneumatosis. There is colonic diverticulosis without convincing CT evidence for acute diverticulitis. There is redemonstration of coarse calcification within the mesentery to the left of the midline, not significantly changed in appearance as compared to the prior exam. Moderate left inguinal hernia present containing fat and loops of nondilated colon. Minimal fluid present within the left inguinal hernia sac. Pelvic contents unremarkable. The bladder is moderately distended with fluid. Irregular area of increased attenuation identified dependently within the bladder lumen, suggesting blood products. The prostate gland appears enlarged. Minimal free fluid present within the pelvis. Nonvisualization of the appendix. No acute fracture visualized. There is grade 1 anterolisthesis of L4 on L5. Multilevel degenerative central canal stenosis present at the lumbar spine. IMPRESSION: 1. Irregular area of increased attenuation identified dependently within the bladder lumen, suggesting blood products. An underlying mass is not excluded on this examination. There is prostatomegaly in the bladder is moderately distended with fluid. 2. Bzxp-kt-[id number] bilateral hydronephrosis with mild, diffuse bilateral hydroureter, possibly related to bladder outlet obstruction given the presence of prostatomegaly and probable blood products within the bladder lumen. 3. Moderate left inguinal hernia redemonstrated containing fat and loops of nondilated distal colon. Minimal fluid also identified within the hernia sac. Recommend clinical correlation to exclude developing strangulation. No bowel obstruction. 4. Cholelithiasis. No CT evidence for acute cholecystitis. 5. Colonic diverticulosis. No convincing CT evidence for acute diverticulitis. 6. Coarse nonspecific calcification redemonstrated within the mesentery to the left of the midline . A similar finding was present on the prior exam. Assessment and Plan (1) Gross hematuria: Status: Acute (2) Acute urinary retention: Status: Acute (3) Urinary tract infection: Status: Acute (4) Phimosis: Status: Acute Plan I spoke with the patient's sister regarding urology issues. Obstructive uropathy, bilateral hydro due to urinary retention. Continue Heck catheter Recommend Flomax and Proscar Review of prior CTAP wo IV contrast-- 08/20/24 - renal cysts, bladder within normal limits Outpatient follow-up, will benefit from scheduling urology follow-up to schedule office cystoscopy and outpatient circumcision versus dorsal slit 08/20/2024 CTAP--bladder unremarkable 02/19/2025-CTAP bladder with clots Procedures Date of Service Date of Service: 02/23/25
--- NOTE | 2025-02-19 18:28 | PC.NURSE ---
no complaints. NAD. palor lower conjunctiva. Provider made aware,
--- NOTE | 2025-02-19 18:35 | P.PNIM_ITS ---
Subjective Subjective Date of Service: 02/19/25 Interval History: Pt confused, [place] Gross hematuria with clots in Griffiths Review of Systems Review of Systems: Yes Unobtainable due to mental status Physical Exam 2 Exam: Exam: General: AOx1, no acute distress Resp: CTA bilaterally CVS: S1, S2, RRR GI: +BS, NT, no distention Skin: Warm, dry : [place] with gross hematuria and clots. Left inguinal hernia Neuro: Cranial nerves II-XII grossly intact bilaterally. Motor grossly intact bilaterally Extremities: No edema Psych: Pleasantly confused Vital Signs: Vital Signs: Last Vital Signs Temp 99.6 F 02/19/25 18:27 Pulse 75 02/19/25 18:27 Resp 18 02/19/25 18:27 BP 97/38 L 02/19/25 18:27 Pulse Ox 96 02/19/25 18:27 O2 Del Method Room Air 02/19/25 18:27 O2 Flow Rate 1 02/19/25 04:45 BMI result Body Mass Index 18.9 Objective Data Active Medications Acetaminophen (Acetaminophen 325 Mg Tablet) 650 mg PO Q6H PRN PRN Reason: Pain, Mild 1-3,fever,headache Calcium Carbonate (Calcium Carbonate 750 Mg Tab.Chew) 750 mg PO Q4H PRN PRN Reason: Heartburn Lactated Ringer's (Lr) 1,000 mls @ 100 mls/hr IVCONT .Q10H [facility] Last Admin: 02/19/25 17:17 Dose: 50 mls/hr Documented By: NATASHA Ciprofloxacin (Cipro) 400 mg in 200 mls @ 200 mls/hr IV Q24H [facility] Last Infusion: 02/19/25 03:52 Dose: Infused Documented By: SUNG Magnesium Hydroxide (Milk Of Magnesia 30 Ml Oral.Susp) 30 ml PO DAILY PRN PRN Reason: Constipation Melatonin (Melatonin 3 Mg Tablet) 6 mg PO BEDTIME PRN PRN Reason: Insomnia Sodium Chloride (0.9 % Sodium Chloride Flush 3 Ml Syringe) 3 ml IVFLUSH QSHIFT [facility] Last Admin: 02/19/25 17:17 Dose: Not Given Documented By: NATASHA Non-Admin Reason: IV Running Labs 02/19/25 04:19 02/19/25 04:19 Labs: Laboratory Results - last 24 hr 02/18/25 02/18/25 02/18/25 20:14 20:20 22:22 MCV 87.9 MCH 29.7 MCHC 33.8 RDW 15.0 Plt Count 162 D MPV 10.4 Immature Gran % (Auto) 0.2 Neut % (Auto) 78.6 H Lymph % (Auto) 12.3 L [place] % (Auto) 8.1 Eos % (Auto) 0.6 Baso % (Auto) 0.2 Lymph # (Auto) 1.2 [place] # (Auto) 0.8 Eos # (Auto) 0.1 Baso # (Auto) 0.0 Abs Immat Gran (auto) 0.02 Absolute Neuts (auto) 7.7 Absolute Nucleated RBC 0.000 Nucleated RBC % (auto) 0.0 VBG pH 7.35 VBG pCO2 53 VBG pO2 40 VBG HCO3 29 H VBG O2 Saturation 57.0 VBG Base Excess 3.3 Anion Gap 11 L Estim Creat Clear Calc 24.9 Estimated GFR 43 Random Glucose 110 Lactic Acid 1.5 Calcium 9.8 D Total Bilirubin 0.4 Direct Bilirubin 0.2 AST 30 ALT 14 Alkaline Phosphatase 79 Total Protein 7.0 Albumin 4.1 Lipase 47 Urine Color [place] Urine Appearance Hazy Urine pH 7.0 Ur Specific [place] 1.020 Urine Protein 300 (3+) H Urine Glucose (UA) 100 H Urine Ketones Trace Urine Blood Large (3+) H Urine Nitrite Positive H Ur Leukocyte Esterase Large (3+) H Urine RBC >20 H Urine WBC 6-10 H Ur Squamous Epith Cells 0-2 Urine Bacteria 4+ Hyaline Casts 0-2 02/19/25 04:19 MCV 88.7 MCH 29.4 MCHC 33.2 RDW 15.1 Plt Count 143 L MPV 11.2 Immature Gran % (Auto) 0.5 H Neut % (Auto) 86.2 H Lymph % (Auto) 2.7 L [place] % (Auto) 10.4 Eos % (Auto) 0.0 Baso % (Auto) 0.2 Lymph # (Auto) 0.3 L [place] # (Auto) 1.3 H Eos # (Auto) 0.0 Baso # (Auto) 0.0 Abs Immat Gran (auto) 0.06 H Absolute Neuts (auto) 10.8 H Absolute Nucleated RBC 0.000 Nucleated RBC % (auto) 0.0 VBG pH VBG pCO2 VBG pO2 VBG HCO3 VBG O2 Saturation VBG Base Excess Anion Gap 13 Estim Creat Clear Calc 22.0 Estimated GFR 37 Random Glucose 99 Lactic Acid Calcium 8.8 D Total Bilirubin 0.2 Direct Bilirubin AST 29 ALT 10 Alkaline Phosphatase 55 Total Protein 5.6 L Albumin 3.1 L Lipase Urine Color Urine Appearance Urine pH Ur Specific [place] Urine Protein Urine Glucose (UA) Urine Ketones Urine Blood Urine Nitrite Ur Leukocyte Esterase Urine RBC Urine WBC Ur Squamous Epith Cells Urine Bacteria Hyaline Casts Microbiology Microbiology Results: Microbiology 02/18/25 22:49 Urine Culture - Preliminary Urine clean catch - Clean Catch Midstream Gram negative eduardo Assessment and Plan (1) Gross hematuria: Status: Acute (2) Acute metabolic encephalopathy: Status: Acute (3) Acute kidney injury superimposed on CKD: Status: Acute Plan Patient is an 89-year-old male with a past medical history significant for phimosis, left inguinal hernia, TIA, HTN and HLD, who presented to the ED due to reported penile trauma. acute metabolic encephalopathy due to Urinary tract infection with urinary retention, bilateral hydroureteronephrosis and gross hematuria - WBC 9.8, vital signs stable, no lactic acidosis, no sepsis - UA positive, culture showing Gram-negative rods - abdominopelvic CT with Irregular area of increased attenuation identified dependently within the bladder lumen, suggesting blood products. An underlying mass is not excluded on this examination. There is prostatomegaly in the bladder is moderately distended with fluid.[id number] bilateral hydronephrosis with mild, diffuse bilateral hydroureter, possibly related to bladder outlet obstruction given the presence of prostatomegaly and probable blood products within the bladder lumen. Moderate left inguinal hernia redemonstrated containing fat and loops of nondilated distal colon. Minimal fluid also identified within the hernia sac. Recommend clinical correlation to exclude developing strangulation. No bowel obstruction.Cholelithiasis. No CT evidence for acute cholecystitis.Colonic diverticulosis. No convincing CT evidence for acute diverticulitis.Coarse nonspecific calcification redemonstrated within the mesentery to the left of the midline . A similar finding was present on the prior exam. - patient started on ceftriaxone in ED due to UTI, reviewed previous cultures will start Cipro - LR 100/HR - urology consulted, start tamsulosin and finasteride - follow CBC and BMP Inguinal hernia - chronically 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; patient without pain - general surgery consulted, no urgent surgical intervention necessary at this time MASSIEL On CKD - creatinine worsening to 1.74 - will increase LR to 100/h, start tamsulosin and finasteride as above - avoid nephrotoxins when possible - monitor BMP Chronic anemia, stable - hemoglobin 9.3, hematocrit 27.5 - no need for blood transfusion at this time - monitor CBC CAD - hold Plavix, aspirin due to hematuria HTN - continue home meds HLD - continue home meds Med rec pending Full code VTE prophylaxis: Pneumoboots Patient with acute metabolic encephalopathy secondary to acute urinary tract infection with urinary retention, bilateral hydroureteronephrosis and gross hematuria, requiring admission for at least 2 midnights stay for IV antibiotics and urology consultation. Quality Stroke Does the patient have a stroke diagnosis?: No VTE Prior VTE?: No VTE Risk Level:: Medical - moderate - high VTE Device Contraindication: N/A - Device Ordered VTE Drug Contraindication: Treatment Not Indicated
[2025-02-19 19:16] LABS: Hematocrit 23.9 % (42.0-52.0); Hemoglobin 8.1 g/dl (14.0-18.0)
--- NOTE | 2025-02-19 20:55 | HO.SKINPHOTO ---
Location: B/L lower extremities Category: Stage: Length: Width: Depth: cm Location: coccyx Category: Stage: Length: Width: Depth: cm
[2025-02-20] VITALS (7 sets, daily range): BP systolic 105–127; BP diastolic 57–60; PULSE 74–90; RESP 15–19; TEMP 36.2–37.7; O2SAT 93–99; BMI 21.1
[2025-02-20 00:09] LABS: Glucose, Whole Blood 133 mg/dL (60-115)
[2025-02-20 06:24] LABS: Hematocrit 22.3 % (42.0-52.0); Hemoglobin 7.3 g/dl (14.0-18.0); Mean Corpuscular HGB Conc 32.7 g/dl (31.0-36.0); Mean Corpuscular Hemoglobin 29.3 pg (27.0-33.0); Mean Corpuscular Volume 89.6 fL (80.0-98.0); NRBC Abs Auto 0.000 X10*3/uL (0.0-0.012); NRBC Pct Auto 0.0 /100WBC (0.0-0.2); Platelet Count 128 X10*3/uL (160-400); Red Blood Count 2.49 X10*6/uL (4.60-5.80); White Blood Count 13.7 X10*3/uL (4.8-10.8)
[2025-02-20 06:35] LABS: Anion Gap 10 (12-20); Blood Urea Nitrogen 38 mg/dL (9-16); Calcium 8.3 mg/dL (8.4-10.2); Carbon Dioxide 25 mmol/L (22-29); Chloride 107 mmol/L (96-108); Creatinine Clr Calc Pharmacy 24.6; Estimated Glomerular Filt Rate 37; Potassium 3.8 mmol/L (3.3-5.1); Sodium 138 mmol/L (135-145)
--- NOTE | 2025-02-20 08:07 | PM.PNGS ---
Subjective Subjective Date of Service: 02/20/25 Interval history: Poor historian Does not offer much verbally although he answers some simple questions No events overnight Physical Exam Vital Signs: Vital Signs: Last Vital Signs Temp 97.6 F 02/20/25 07:52 Pulse 79 02/20/25 07:52 Resp 18 02/20/25 07:52 BP 127/60 02/20/25 07:52 Pulse Ox 95 02/20/25 07:52 O2 Del Method Room Air 02/20/25 07:52 O2 Flow Rate 1 02/19/25 04:45 BMI result Body Mass Index 21.1 Const: General: comfortable and no acute distress Resp: Effort & Inspection: normal respiratory effort Cardio: Rate: regular rate GI: Other: Chronically incarcerated right inguinal hernia, nontender Palpation (GI): Soft to palpation, not firm and nontender Objective Data Active Medications Acetaminophen (Acetaminophen 325 Mg Tablet) 650 mg PO Q6H PRN PRN Reason: Pain, Mild 1-3,fever,headache Atorvastatin Calcium (Atorvastatin Calcium 40 Mg Tablet) 40 mg PO BEDTIME [facility] Last Admin: 02/19/25 20:13 Dose: 40 mg Documented By: CELSA Calcium Carbonate (Calcium Carbonate 750 Mg Tab.Chew) 750 mg PO Q4H PRN PRN Reason: Heartburn Calcium Carbonate/Cholecalciferol (Calcium + Vitamin D 250 Mg Tablet) 500 mg PO DAILY [facility] Cyanocobalamin (Cyanocobalamin (Vitamin B-12) 1,000 Mcg Tablet) 1,000 mcg PO DAILY FERNANDO Finasteride (Finasteride 5 Mg Tablet) 5 mg PO DAILY [facility] Last Admin: 02/19/25 20:27 Dose: 5 mg Documented By: CELSA Lactated Ringer's (Lr) 1,000 mls @ 100 mls/hr IVCONT .Q10H [facility] Last Admin: 02/20/25 02:22 Dose: Not Given Documented By: AMISHA Non-Admin Reason: previous bag still running Ciprofloxacin (Cipro) 400 mg in 200 mls @ 200 mls/hr IV Q24H [facility] Last Infusion: 02/20/25 03:23 Dose: Infused Documented By: AMISHA Magnesium Hydroxide (Milk Of Magnesia 30 Ml Oral.Susp) 30 ml PO DAILY PRN PRN Reason: Constipation Melatonin (Melatonin 3 Mg Tablet) 6 mg PO BEDTIME PRN PRN Reason: Insomnia Silver Sulfadiazine (Silver Sulfadiazine 1 % Cream 20 Gm Tube) 1 appl TOPICAL MOWEFR [facility] Sodium Chloride (0.9 % Sodium Chloride Flush 3 Ml Syringe) 3 ml IVFLUSH QSHIFT [facility] Last Admin: 02/20/25 01:28 Dose: Not Given Documented By: AMISHA Non-Admin Reason: Previously Administered Tamsulosin HCl (Tamsulosin Hcl 0.4 Mg Capsule) 0.4 mg PO DAILY [facility] Last Admin: 02/19/25 20:13 Dose: 0.4 mg Documented By: CELSA Vitamin E (Vitamin E (Dl,Tocopheryl Acet) 180 Mg (400 Unit) Capsule) 180 mg PO DAILY [facility] Labs 02/20/25 05:50 02/20/25 05:50 Labs: Laboratory Results - last 24 hr 02/19/25 02/20/25 23:57 05:50 MCV 89.6 MCH 29.3 MCHC 32.7 RDW 15.6 Plt Count 128 L MPV 11.6 Absolute Nucleated RBC 0.000 Nucleated RBC % (auto) 0.0 Anion Gap 10 L Estim Creat Clear Calc 24.6 Estimated GFR 37 POC Glucose 133 H Random Glucose 105 Calcium 8.3 L Microbiology Microbiology Results: Microbiology 02/18/25 22:49 Urine Culture - Final Urine clean catch - Clean Catch Midstream Escherichia coli 02/18/25 23:45 Blood Culture - Preliminary Blood - Arterial No growth after 24 hours. 02/18/25 23:45 Blood Culture - Preliminary Blood - Arterial No growth after 24 hours. Procedures Date of Service Date of Service: 02/20/25 Progress Note: A&P Assessment and plan (1) Inguinal hernia: Status: Acute Assessment and Plan: This is chronically incarcerated No urgent surgical intervention necessary Abdomen remains very benign No obstructive symptoms Care as per hospitalist service Time Spent With Patient Time: Total time managing care of this patient today ____ minutes. Quality Stroke Does the patient have a stroke diagnosis?: No VTE Prior VTE?: No VTE Risk Level:: Medical - moderate - high VTE Device Contraindication: N/A - Device Ordered VTE Drug Contraindication: Treatment Not Indicated
[2025-02-20] MEDS: Calcium + Vitamin D 250 MG TABLET 500 MG PO (08:47)
[2025-02-20] MEDS: 0.9 % Sodium Chloride Flush 3 ML SYRINGE IVFLUSH ×3 (08:47→20:37)
[2025-02-20] MEDS: Vitamin E (Dl,Tocopheryl Acet) 180 MG (400 UNIT) CAPSULE PO (08:47)
[2025-02-20] MEDS: Silver Sulfadiazine 1 % Cream 20 GM TUBE 1 APPL TOPICAL (08:49)
--- NOTE | 2025-02-20 11:25 | MHC.CLN ---
CONSULT DIET RX REGULAR. SKIN WITH OPEN AREA TO COCCYX. 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 ADDING ENSURE BID TO PROMOTE SKIN INTEGRITY AND NUTRITIONAL INTAKE. SUPPLEMENT PROVIDES 700 KCALS, 40 G PROTEIN. FOLLOW FOR PO INTAKE AND SKIN INTEGRITY. SEE CLINICAL NUTRITION ASSESSMENT 02/20/25.
--- NOTE | 2025-02-20 12:29 | HO.WOUND ---
Wound Consult: Initial 89 yr old male admitted to [facility] on 02/18/25- See progress notes and H&P for detailed history. Wound consult placed for coccyx. Patient agreeable to assessment and photo documentation. Coccyx Etiology: Coccyx Deep tissue pressure injury Present on admission - left buttock with small area of intact pale pink scar tissue, likely area of healed skin injury. Measurements: 2cm x 4cm x 0cm Wound Bed: deep maroon/purple intact nonblanching discoloration Drainage / Odor: none Edges: ? irregular Kat wound: ? No Induration, Fluctuance or Warmth noted Pain: none Goals of Treatment: ? offloading, pressure redistribution with foam dressing Deep tissue pressure injury: Intact or non intact skin with localized are of non-blanchable deep red, maroon, purple discoloration OR epidermial separation revealing a dark wound bed OR blood filled blister. Pain and temperature changes often precede color changes, can show 48-72 hours later. May resolve without causing ulceration or full thickness skin loss, or it may evolve to reveal acual extent of tissue injury Left Heel Etiology: stage 1 pressure injury Present on Admission Measurements: 0.5cm x 0.5cm x 0cm Wound Bed: intact, reddened, nonblanching. Drainage / Odor: none Kat wound: ? No Induration, Fluctuance or Warmth noted Pain: none Goals of Treatment: ? offloading and pressure redistribution with foam dressings Right Heel Etiology: concern for declaring pressure injury present on admission Measurements: 2cm x 2cm x 0cm Wound Bed: intact blanching light purple skin Drainage / Odor: none Kat wound: ? No Induration, Fluctuance or Warmth noted Pain: none Goals of Treatment: ? offloading and pressure redistribution with foam dressing DTI: Pain and temperature changes often precede color changes, can show 48-72 hours later. May resolve without causing ulceration or full thickness skin loss, or it may evolve to reveal acual extent of tissue injury Bilateral legs Etiology: venous stasis Present on Admission Wound Bed: dry scaly skin with areas of superficial moist pink Drainage / Odor: scant serous, no odor Edges: ? irregular Kat wound: ? No Induration, Fluctuance or Warmth noted Pain: none Goals of Treatment: ? moist wound healing with xeroform of note, left anterior ankle with linear area of nonblanching deep red discoloration, ? DTI vs abrasion, unclear etiology as nothing in contact with skin at time of assessment, no a pressure point. leave open to air. Back- skin is intact blanching Recommendations: 1. Turn and Reposition every 2 hours and as needed for patient comfort. Use pillows or wedges to support off loading positions. 2. Off Load all bony prominences with use of pillows and heel boots if needed. Apply Preventative foams where needed. 3. Monitor for incontinence and moisture control, use barrier creams when needed for prevention and treatment. 4. Provide adequate and supplemental nutrition. 5. Order or Continue low air loss mattress. 6. When applicable maintain blood glucose levels per Providers order. Bilateral lower legs: cleanse with saline, pat dry, apply xeroform, cover with ABD, wrap with rolled gauze, change daily and PRN. Coccyx: Off Load Pressure with Q2 hr turns and use of pillows - Routine cleansing. Apply skin prep allow to dry. Cover with foam dressing to aid in off loading and protection from friction. Change every 3 days and PRN. Bilateral heels: Elevate heels off of bed surface with pillows. Float heels off of pillows. Apply skin prep allow to dry. Apply heel foam dressings, peel back and assess Q shift and change every 5-7 days and PRN. Re-consult wound care Nurse for wound deterioration or wound changes.
[2025-02-20] MEDS: Lactated Ringers 1,000 ML 50 ML IVCONT (13:08)
--- NOTE | 2025-02-20 14:09 | P.PNIM_ITS ---
Subjective Subjective Date of Service: 02/20/25 Interval History: Pt extremely [place] and hearing aids not working; difficult to engage with Does not appear to have any acute medical complaints Red-colored urine in Griffiths without clots Physical Exam 2 Exam: Exam: General: AOx1, no acute distress Resp: CTA bilaterally CVS: S1, S2, RRR GI: +BS, NT, no distention Skin: Warm, dry : Griffiths with gross hematuria, no clots. Draining clear yellow-colored uring in tubing. Chronically incarcerated, nontender left inguinal hernia Neuro: Cranial nerves II-XII grossly intact bilaterally. Motor grossly intact bilaterally Extremities: No edema Psych: Pleasantly confused Vital Signs: Vital Signs: Last Vital Signs Temp 97.8 F 02/20/25 11:31 Pulse 82 02/20/25 11:31 Resp 15 02/20/25 11:31 BP 120/59 L 02/20/25 11:31 Pulse Ox 97 02/20/25 11:31 O2 Del Method Room Air 02/20/25 11:31 O2 Flow Rate 1 02/19/25 04:45 BMI result Body Mass Index 21.1 Objective Data Active Medications Acetaminophen (Acetaminophen 325 Mg Tablet) 650 mg PO Q6H PRN PRN Reason: Pain, Mild 1-3,fever,headache Atorvastatin Calcium (Atorvastatin Calcium 40 Mg Tablet) 40 mg PO BEDTIME [facility] Last Admin: 02/19/25 20:13 Dose: 40 mg Documented By: CELSA Calcium Carbonate (Calcium Carbonate 750 Mg Tab.Chew) 750 mg PO Q4H PRN PRN Reason: Heartburn Calcium Carbonate/Cholecalciferol (Calcium + Vitamin D 250 Mg Tablet) 500 mg PO DAILY [facility] Last Admin: 02/20/25 08:47 Dose: 500 mg Documented By: SIMRAN Cyanocobalamin (Cyanocobalamin (Vitamin B-12) 1,000 Mcg Tablet) 1,000 mcg PO DAILY [facility] Last Admin: 02/20/25 08:47 Dose: 1,000 mcg Documented By: SIMRAN Finasteride (Finasteride 5 Mg Tablet) 5 mg PO DAILY [facility] Last Admin: 02/20/25 08:47 Dose: 5 mg Documented By: SIMRAN Lactated Ringer's (Lr) 1,000 mls @ 100 mls/hr IVCONT .Q10H [facility] Last Admin: 02/20/25 13:08 Dose: 50 mls/hr Documented By: SIMRAN Ciprofloxacin (Cipro) 400 mg in 200 mls @ 200 mls/hr IV Q24H [facility] Last Infusion: 02/20/25 03:23 Dose: Infused Documented By: AMISHA Magnesium Hydroxide (Milk Of Magnesia 30 Ml Oral.Susp) 30 ml PO DAILY PRN PRN Reason: Constipation Melatonin (Melatonin 3 Mg Tablet) 6 mg PO BEDTIME PRN PRN Reason: Insomnia Silver Sulfadiazine (Silver Sulfadiazine 1 % Cream 20 Gm Tube) 1 appl TOPICAL MOWEFR [facility] Last Admin: 02/20/25 08:49 Dose: 1 appl Documented By: SIMRAN Sodium Chloride (0.9 % Sodium Chloride Flush 3 Ml Syringe) 3 ml IVFLUSH QSHIFT [facility] Last Admin: 02/20/25 08:47 Dose: 3 ml Documented By: SIMRAN Tamsulosin HCl (Tamsulosin Hcl 0.4 Mg Capsule) 0.4 mg PO DAILY [facility] Last Admin: 02/20/25 08:47 Dose: 0.4 mg Documented By: SIMRAN Vitamin E (Vitamin E (Dl,Tocopheryl Acet) 180 Mg (400 Unit) Capsule) 180 mg PO DAILY [facility] Last Admin: 02/20/25 08:47 Dose: 180 mg Documented By: SIMRAN Labs 02/20/25 05:50 02/20/25 05:50 Labs: Laboratory Results - last 24 hr 02/19/25 02/20/25 23:57 05:50 MCV 89.6 MCH 29.3 MCHC 32.7 RDW 15.6 Plt Count 128 L MPV 11.6 Absolute Nucleated RBC 0.000 Nucleated RBC % (auto) 0.0 Anion Gap 10 L Estim Creat Clear Calc 24.6 Estimated GFR 37 POC Glucose 133 H Random Glucose 105 Calcium 8.3 L Microbiology Microbiology Results: Microbiology 02/18/25 22:49 Urine Culture - Final Urine clean catch - Clean Catch Midstream Escherichia coli 02/18/25 23:45 Blood Culture - Preliminary Blood - Arterial No growth after 24 hours. 02/18/25 23:45 Blood Culture - Preliminary Blood - Arterial No growth after 24 hours. Assessment and Plan (1) Gross hematuria: Status: Acute (2) Urinary tract infection: Status: Acute Plan Patient is an 89-year-old male with a past medical history significant for phimosis, left inguinal hernia, TIA, HTN and HLD, who presented to the ED due to reported penile trauma. acute metabolic encephalopathy due to Urinary tract infection with obstructive uropathy, urinary retention, bilateral hydroureteronephrosis, and gross hematuria - WBC 9.8, vital signs stable, no lactic acidosis, no sepsis - UA positive, culture with e coli sensitive to ceftriaxone but resistant to cipro - abdominopelvic CT with Irregular area of increased attenuation identified dependently within the bladder lumen, suggesting blood products. An underlying mass is not excluded on this examination. There is prostatomegaly in the bladder is moderately distended with fluid.[id number] bilateral hydronephrosis with mild, diffuse bilateral hydroureter, possibly related to bladder outlet obstruction given the presence of prostatomegaly and probable blood products within the bladder lumen. Moderate left inguinal hernia redemonstrated containing fat and loops of nondilated distal colon. Minimal fluid also identified within the hernia sac. Recommend clinical correlation to exclude developing strangulation. No bowel obstruction.Cholelithiasis. No CT evidence for acute cholecystitis.Colonic diverticulosis. No convincing CT evidence for acute diverticulitis.Coarse nonspecific calcification redemonstrated within the mesentery to the left of the midline . A similar finding was present on the prior exam. - patient started on ceftriaxone in ED due to UTI, switched to Cipro based on review of previous sensitivities; will now switch back to ceftriaxone, started 02/20 - LR 100/HR - urology consulted, start tamsulosin and finasteride - follow CBC and BMP - baseline mentation unknown Inguinal hernia - chronically 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; patient without pain - general surgery consulted, no urgent surgical intervention necessary at this time MASSIEL On CKD - creatinine worsening to 1.74 x2 days - continue LR @100/h, start tamsulosin and finasteride as above - switch abx to ceftriaxone - avoid nephrotoxins when possible - monitor BMP - consider nephrology consult tomorrow if creatinine does not improve Acute on chronic anemia - hemoglobin 7.3, down from 9.3 at admission - in the setting of hematuria - no indication for transfusion at this time - continue to hold Plavix and asa - monitor CBC CAD - hold Plavix and aspirin due to hematuria HTN - continue home meds HLD - continue home meds Med rec pending Full code VTE prophylaxis: Pneumoboots Patient with acute metabolic encephalopathy secondary to acute urinary tract infection with urinary retention, bilateral hydroureteronephrosis and gross hematuria, requiring admission for at least 2 midnights stay for IV antibiotics and urology consultation. Quality Stroke Does the patient have a stroke diagnosis?: No VTE Prior VTE?: No VTE Risk Level:: Medical - moderate - high VTE Device Contraindication: N/A - Device Ordered VTE Drug Contraindication: Treatment Not Indicated
--- NOTE | 2025-02-20 15:19 | MHC.CM.PN ---
per rounds md will order a pt eval if str is indicated p[ts is [facility]
--- NOTE | 2025-02-20 17:50 | PC.NURSE ---
Pt sister Diana is requesting updates at [phone] States that pt Melanie is currently at [facility] and would like for Yeison to go there as well to be with her if Rehab is needed.
[2025-02-21 03:43] VITALS: BP 137/63; PULSE 82; RESP 18; TEMP 36.4; O2SAT 92
[2025-02-21 06:29] LABS: Hematocrit 22.0 % (42.0-52.0); Hemoglobin 7.4 g/dl (14.0-18.0); Mean Corpuscular HGB Conc 33.6 g/dl (31.0-36.0); Mean Corpuscular Hemoglobin 29.5 pg (27.0-33.0); Mean Corpuscular Volume 87.6 fL (80.0-98.0); NRBC Abs Auto 0.000 X10*3/uL (0.0-0.012); NRBC Pct Auto 0.0 /100WBC (0.0-0.2); Platelet Count 138 X10*3/uL (160-400); Red Blood Count 2.51 X10*6/uL (4.60-5.80); White Blood Count 11.4 X10*3/uL (4.8-10.8)
[2025-02-21 06:52] LABS: Anion Gap 10 (12-20); Blood Urea Nitrogen 34 mg/dL (9-16); Calcium 8.4 mg/dL (8.4-10.2); Carbon Dioxide 25 mmol/L (22-29); Chloride 107 mmol/L (96-108); Creatinine Clr Calc Pharmacy 26.4; Estimated Glomerular Filt Rate 40; Potassium 3.6 mmol/L (3.3-5.1); Sodium 138 mmol/L (135-145)
--- NOTE | 2025-02-21 07:12 | P.CDIM_ITS ---
PROVIDER RESPONSE TEXT: To clarify, the appropriate diagnosis supported by the clinical indicators: CKD, please provide stage: CKD 3b QUERY TEXT: PHYSICIAN'S DOCUMENTATION REQUEST Date of Query: 02/20/2025 07:29 AM EDT Patient Name: Yeison Williamson Admit Date: 02/19/2025 Dear Tabby GAMBOA, A review of the medical record indicates additional documentation may be needed. Please review below and update the documentation accordingly. Clinical Indicators: Progress note dated 02/19/2025 - MASSIEL on CKD Creatinine worsening to 1.74 Will increase LR to 100/h, start tamsulosin and finasteride Avoid nephrotoxins Monitor BMP Please clarify which of the following accurately represents the stage of the patient's CKD? CKD, please provide stage 1, 2, 3a, 3b, 4 ESRD - CKD V now requiring permanent dialysis and/or transplant Other (explain) Clinically unable to determine (explain) Thank you, Luci Mcfarlane, CCS, CDIS Use of terms such as suspected, likely, concern for, or probable (associated with a specific diagnosis that is being evaluated, monitored, or treated as if it exists) are acceptable and can be coded in the inpatient setting, when documented at the time of discharge. Please use your independent medical judgment in providing your response. THIS QUERY IS PART OF THE PERMANENT MEDICAL RECORD
[2025-02-21 07:51] VITALS: BP 135/67; PULSE 77; RESP 16; TEMP 37.4; O2SAT 92
[2025-02-21] MEDS: Calcium + Vitamin D 250 MG TABLET 500 MG PO (08:20)
[2025-02-21] MEDS: 0.9 % Sodium Chloride Flush 3 ML SYRINGE IVFLUSH ×4 (08:20→19:44)
[2025-02-21] MEDS: Vitamin E (Dl,Tocopheryl Acet) 180 MG (400 UNIT) CAPSULE PO (08:20)
--- NOTE | 2025-02-21 11:37 | PM.CNNEP ---
History of Present Illness Reason for Consult Consult date: 02/21/25 Chief Complaint Chief complaint: UTI History of Present Illness Narrative: 89 y/o male with phimosis, inguinal hernia, hx NSTEMI, anemia, CKD. 02/18 presented with penile trauma, urethral swelling and gross hematuria with large blood clot in urethra. UA suggestive of UTI, cultures pending. 02/18 abd/pelvic CT shows mild-moderate bilateral hydro. Pt has catheter in place, draining small amount of bloody urine with clots Nephrology consulted for MASSIEL patient reports he is feeling well at bedside. Denies shortness of breath, pain. Denies other symptoms/concerns. bedside bladder scan shows full bladder despite heck Review of Systems Review of Systems Yes all other systems are reviewed and are negative [facility] Past Medical History Medical History Calcified mesenteric mass Left inguinal hernia Abnormal CT scan Inguinal hernia with strangulation TIA (transient ischemic attack) Hypercholesterolemia Hypertension Surgical History Surgical History History of right inguinal hernia repair Social History Social History Household Members: Spouse Housing: House Housing Other:: From STR Do you presently have visiting nurse or other home services: Yes ([employer]) Unable to assess alcohol history related to: Unknown Alcohol intake: former Patient Tobacco Use Status: Never used Tobacco e-Cigarette/Vaping Use: Never Used Second Hand Smoke Exposure: No Advance Directives Date on File: 09/17/22 service: Yes Current occupational status: retired Meds Allergies Allergy/AdvReac Type Severity Reaction Status Date / Time No Known Allergies (No Known Allergy Verified 02/18/25 18:25 Allergies*) Active Medications: Current Medications Acetaminophen (Acetaminophen 325 Mg Tablet) 650 mg PO Q6H PRN PRN Reason: Pain, Mild 1-3,fever,headache Atorvastatin Calcium (Atorvastatin Calcium 40 Mg Tablet) 40 mg PO BEDTIME [facility] Last Admin: 02/20/25 20:36 Dose: 40 mg Calcium Carbonate (Calcium Carbonate 750 Mg Tab.Chew) 750 mg PO Q4H PRN PRN Reason: Heartburn Calcium Carbonate/Cholecalciferol (Calcium + Vitamin D 250 Mg Tablet) 500 mg PO DAILY [facility] Last Admin: 02/21/25 08:20 Dose: 500 mg Ceftriaxone Sodium (Ceftriaxone Sodium 1 Gm Vial) 1 gm IVPUSH Q24H [facility] Last Admin: 02/20/25 15:19 Dose: 1 gm Cyanocobalamin (Cyanocobalamin (Vitamin B-12) 1,000 Mcg Tablet) 1,000 mcg PO DAILY [facility] Last Admin: 02/21/25 08:20 Dose: 1,000 mcg Finasteride (Finasteride 5 Mg Tablet) 5 mg PO DAILY [facility] Last Admin: 02/21/25 08:20 Dose: 5 mg Magnesium Hydroxide (Milk Of Magnesia 30 Ml Oral.Susp) 30 ml PO DAILY PRN PRN Reason: Constipation Melatonin (Melatonin 3 Mg Tablet) 6 mg PO BEDTIME PRN PRN Reason: Insomnia Silver Sulfadiazine (Silver Sulfadiazine 1 % Cream 20 Gm Tube) 1 appl TOPICAL MOWEFR [facility] Last Admin: 02/20/25 08:49 Dose: 1 appl Sodium Chloride (0.9 % Sodium Chloride Flush 3 Ml Syringe) 3 ml IVFLUSH QSHIFT [facility] Last Admin: 02/21/25 08:20 Dose: 3 ml Tamsulosin HCl (Tamsulosin Hcl 0.4 Mg Capsule) 0.4 mg PO DAILY [facility] Last Admin: 02/21/25 08:20 Dose: 0.4 mg Vitamin E (Vitamin E (Dl,Tocopheryl Acet) 180 Mg (400 Unit) Capsule) 180 mg PO DAILY [facility] Last Admin: 02/21/25 08:20 Dose: 180 mg Home Medications ?Medication ?Instructions ?Recorded ?Confirmed ?Last Taken ?Type atorvastatin 80 mg tablet 40 mg PO BEDTIME 08/18/23 02/19/25 Unknown History cyanocobalamin (vitamin B-12) 1,000 mcg PO DAILY 08/20/24 02/19/25 Unknown History 1,000 mcg tablet (Vitamin B-12) hydrochlorothiazide 25 mg tablet 12.5 mg PO DAILY 08/20/24 02/19/25 Unknown History calcium 600 mg (as 1 tab PO DAILY 08/21/24 02/19/25 Unknown History carbonate)-vitamin D3 5 mcg (200 unit) tablet clopidogrel 75 mg tablet 75 mg PO DAILY 02/19/25 02/19/25 Unknown History silver sulfadiazine 1 % topical 1 appl topical MOWEFR 02/19/25 02/19/25 Unknown History cream vitamin E (dl, acetate) 45 mg (100 45 mg PO DAILY 02/19/25 02/19/25 Unknown History unit) capsule Physical Exam Vital Signs: Last Vital Signs Temp 99.3 F 02/21/25 07:51 Pulse 77 02/21/25 07:51 Resp 16 02/21/25 07:51 BP 135/67 02/21/25 07:51 Pulse Ox 92 02/21/25 07:51 O2 Del Method Room Air 02/21/25 07:51 O2 Flow Rate 1 02/19/25 04:45 BMI result Body Mass Index 21.1 Const General: no acute distress, alert and awake Resp Effort & Inspection: normal respiratory effort and able to speak in complete sentences Auscultation: clear to auscultation bilaterally Cardio Rate: regular rate Rhythm: regular rhythm Heart sounds: S1 normal heart sound present and S2 normal heart sound present GI Palpation (GI): Soft to palpation and nontender Skin Lesions: other (shins covered in dressings) Extrem General: No edema Results Lab Results 02/21/25 06:13 02/21/25 06:13 Lab results: Chemistry 02/18/25 02/19/25 02/20/25 20:14 04:19 05:50 Sodium 140 141 138 Potassium 3.7 3.4 3.8 Carbon Dioxide 28 24 25 BUN 34 H 33 H 38 H Creatinine 1.54 H 1.74 H 1.74 H Calcium 9.8 D 8.8 D 8.3 L 02/21/25 06:13 Sodium 138 Potassium 3.6 Carbon Dioxide 25 BUN 34 H Creatinine 1.62 H Calcium 8.4 Hematology 02/18/25 02/19/25 02/19/25 20:14 04:19 18:45 WBC 9.8 12.5 H Hgb 9.3 L 8.3 L 8.1 L Plt Count 162 D 143 L 02/20/25 02/21/25 05:50 06:13 WBC 13.7 H 11.4 H Hgb 7.3 L 7.4 L Plt Count 128 L 138 L Urinalysis 02/18/25 22:22 Urine Color [place] Urine Appearance Hazy Urine pH 7.0 Ur Specific [place] 1.020 Urine Protein 300 (3+) H Urine Glucose (UA) 100 H Urine Ketones Trace Urine Blood Large (3+) H Urine Nitrite Positive H Ur Leukocyte Esterase Large (3+) H Urine RBC >20 H Urine WBC 6-10 H Ur Squamous Epith Cells 0-2 Hyaline Casts 0-2 Assessment and Plan (1) Acute kidney injury superimposed on CKD: Status: Acute Plan MASSIEL on CKD likely secondary to urinary obstruction heck is not draining- needs continuous 3-way bladder irrigation to help clear blood/clots to promote adequate urine drainage creatinine is elevated but stable, anticipate creatinine will improve once obstruction resolves recommend daily electrolyte and renal function studies recommend close monitoring of intake and output recommend avoiding nephrotoxins continue supportive care Discussed with Dr Haynes. Procedures Date of Service Date of Service: 02/21/25
[2025-02-21 12:00] VITALS: BP 128/61; PULSE 79; RESP 16; TEMP 37.3; O2SAT 93
--- NOTE | 2025-02-21 14:38 | P.PNIM_ITS ---
Subjective Subjective Date of Service: 02/21/25 Interval History: Pt seen evaluated in his room where he is resting comfortably in bed Hearing aids have been fixed, able to hear much better today AOx3 Has no acute complaints, reports he feels ?great? Scant dark red output in Griffiths; no clots Creatinine marginally improved from yesterday Review of Systems Review of Systems: Yes all other systems are reviewed and are negative Physical Exam 2 Exam: Exam: General: AOx3, no acute distress. Frail, elderly. Wearing a red stocking cap. Resp: CTA bilaterally CVS: S1, S2, RRR GI: Soft, NT, no distention Skin: Warm, dry : Scant amount of dark red urine in Griffiths Neuro: Cranial nerves II-XII grossly intact bilaterally. Motor grossly intact bilaterally Extremities: No edema Psych: Appropriate affect Vital Signs: Vital Signs: Last Vital Signs Temp 99.2 F 02/21/25 12:00 Pulse 79 02/21/25 12:00 Resp 16 02/21/25 12:00 BP 128/61 02/21/25 12:00 Pulse Ox 93 02/21/25 12:00 O2 Del Method Room Air 02/21/25 12:00 O2 Flow Rate 1 02/19/25 04:45 BMI result Body Mass Index 21.1 Objective Data Active Medications Acetaminophen (Acetaminophen 325 Mg Tablet) 650 mg PO Q6H PRN PRN Reason: Pain, Mild 1-3,fever,headache Atorvastatin Calcium (Atorvastatin Calcium 40 Mg Tablet) 40 mg PO BEDTIME [facility] Last Admin: 02/20/25 20:36 Dose: 40 mg Documented By: SKYE Calcium Carbonate (Calcium Carbonate 750 Mg Tab.Chew) 750 mg PO Q4H PRN PRN Reason: Heartburn Calcium Carbonate/Cholecalciferol (Calcium + Vitamin D 250 Mg Tablet) 500 mg PO DAILY [facility] Last Admin: 02/21/25 08:20 Dose: 500 mg Documented By: SIMRAN Ceftriaxone Sodium (Ceftriaxone Sodium 1 Gm Vial) 1 gm IVPUSH Q24H [facility] Last Admin: 02/20/25 15:19 Dose: 1 gm Documented By: SIMRAN Cyanocobalamin (Cyanocobalamin (Vitamin B-12) 1,000 Mcg Tablet) 1,000 mcg PO DAILY [facility] Last Admin: 02/21/25 08:20 Dose: 1,000 mcg Documented By: SIMRAN Finasteride (Finasteride 5 Mg Tablet) 5 mg PO DAILY [facility] Last Admin: 02/21/25 08:20 Dose: 5 mg Documented By: SIMRAN Magnesium Hydroxide (Milk Of Magnesia 30 Ml Oral.Susp) 30 ml PO DAILY PRN PRN Reason: Constipation Melatonin (Melatonin 3 Mg Tablet) 6 mg PO BEDTIME PRN PRN Reason: Insomnia Silver Sulfadiazine (Silver Sulfadiazine 1 % Cream 20 Gm Tube) 1 appl TOPICAL MOWEFR [facility] Last Admin: 02/20/25 08:49 Dose: 1 appl Documented By: SIMRAN Sodium Chloride (0.9 % Sodium Chloride Flush 3 Ml Syringe) 3 ml IVFLUSH QSHIFT [facility] Last Admin: 02/21/25 08:20 Dose: 3 ml Documented By: SIMRAN Tamsulosin HCl (Tamsulosin Hcl 0.4 Mg Capsule) 0.4 mg PO DAILY [facility] Last Admin: 02/21/25 08:20 Dose: 0.4 mg Documented By: SIMRAN Vitamin E (Vitamin E (Dl,Tocopheryl Acet) 180 Mg (400 Unit) Capsule) 180 mg PO DAILY [facility] Last Admin: 02/21/25 08:20 Dose: 180 mg Documented By: SIMRAN Labs 02/21/25 06:13 02/21/25 06:13 Labs: Laboratory Results - last 24 hr 02/21/25 06:13 MCV 87.6 MCH 29.5 MCHC 33.6 RDW 15.2 Plt Count 138 L MPV 11.2 Absolute Nucleated RBC 0.000 Nucleated RBC % (auto) 0.0 Anion Gap 10 L Estim Creat Clear Calc 26.4 Estimated GFR 40 Random Glucose 106 Calcium 8.4 Microbiology Microbiology Results: Microbiology 02/18/25 23:45 Blood Culture - Preliminary Blood - Arterial No growth after 48 hours. 02/18/25 23:45 Blood Culture - Preliminary Blood - Arterial No growth after 48 hours. Assessment and Plan (1) Acute kidney injury superimposed on CKD: Status: Acute (2) Gross hematuria: Status: Acute (3) Acute urinary retention: Status: Acute (4) Urinary tract infection: Status: Acute Plan Patient is an 89-year-old male with a past medical history significant for phimosis, left inguinal hernia, TIA, HTN and HLD, who presented to the ED due to reported penile trauma. acute metabolic encephalopathy due to Urinary tract infection with obstructive uropathy, urinary retention, bilateral hydroureteronephrosis, and gross hematuria - no sepsis - abdominopelvic CT with likley blood in bladder; prostatomegaly; bilateral hydronephrosis and hydroureter, possibly related to bladder outlet obstruction; left inguinal hernia redemonstrated containing fat and loops of nondilated distal colon. 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; patient without pain - general surgery consulted, no urgent surgical intervention necessary at this time MASSIEL On CKD3 - creatinine worsening to 1.74 x2 days, mild improvement to 1.62 today - continue tamsulosin and finasteride as above - bladder scan conducted showing continued retention despite Griffiths, likely blood in urine; feel blood in bladder is causing persistent hydro nephrosis and creatinine elevation - started on CBI - avoid nephrotoxins when possible - monitor BMP Acute on chronic anemia - hemoglobin stable at 7.4, down from 9.3 at admission - in the setting of hematuria - no indication for transfusion at this time - continue to hold Plavix and asa - monitor CBC CAD - hold Plavix and aspirin due to hematuria HTN - continue home meds HLD - continue home meds Med rec pending Full code VTE prophylaxis: Pneumoboots Patient will require continued hospitalization for treatment of continued hematuria with CBI as well as safe disposition home. Quality Stroke Does the patient have a stroke diagnosis?: No VTE Prior VTE?: No VTE Risk Level:: Medical - moderate - high VTE Device Contraindication: N/A - Device Ordered VTE Drug Contraindication: Treatment Not Indicated
[2025-02-21 15:19] VITALS: BP 123/67; PULSE 82; RESP 16; TEMP 37.2; O2SAT 98
[2025-02-21 19:53] VITALS: BP 107/59; PULSE 81; RESP 18; TEMP 36.2; O2SAT 96
[2025-02-21 23:12] VITALS: BP 122/63; PULSE 70; RESP 18; TEMP 37; O2SAT 96
[2025-02-22 03:46] VITALS: BP 154/77; PULSE 66; RESP 18; TEMP 36.9; O2SAT 96
[2025-02-22 06:32] LABS: Hematocrit 22.2 % (42.0-52.0); Hemoglobin 7.6 g/dl (14.0-18.0); Mean Corpuscular HGB Conc 34.2 g/dl (31.0-36.0); Mean Corpuscular Hemoglobin 30.2 pg (27.0-33.0); Mean Corpuscular Volume 88.1 fL (80.0-98.0); NRBC Abs Auto 0.000 X10*3/uL (0.0-0.012); NRBC Pct Auto 0.0 /100WBC (0.0-0.2); Platelet Count 147 X10*3/uL (160-400); Red Blood Count 2.52 X10*6/uL (4.60-5.80); White Blood Count 7.8 X10*3/uL (4.8-10.8)
[2025-02-22 06:48] LABS: Anion Gap 10 (12-20); Blood Urea Nitrogen 30 mg/dL (9-16); Calcium 8.2 mg/dL (8.4-10.2); Carbon Dioxide 24 mmol/L (22-29); Chloride 108 mmol/L (96-108); Creatinine Clr Calc Pharmacy 31.0; Estimated Glomerular Filt Rate 49; Potassium 3.8 mmol/L (3.3-5.1); Sodium 138 mmol/L (135-145)
--- NOTE | 2025-02-22 07:15 | HO.PM.IMPN ---
Subjective Subjective Date of Service: 02/22/25 Interval History: Pt placed on CBI yesterday; large clot noted upon catheter insertion, has been clear since H&H stable Creatinine improving Pt with out complaints Review of Systems Review of Systems: Yes all other systems are reviewed and are negative Physical Exam Exam: Exam: General: AOx3, no acute distress. Frail, elderly. Wearing a red stocking cap. Resp: CTA bilaterally CVS: S1, S2, RRR GI: Soft, NT, no distention Skin: Warm, dry : CBI running with clear output in Griffiths Neuro: Cranial nerves II-XII grossly intact bilaterally. Motor grossly intact bilaterally Extremities: No edema Psych: Appropriate affect Vital Signs: Vital Signs: Last Vital Signs Temp 98.4 F 02/22/25 03:46 Pulse 66 02/22/25 03:46 Resp 18 02/22/25 03:46 BP 154/77 H 02/22/25 03:46 Pulse Ox 96 02/22/25 03:46 O2 Del Method Room Air 02/22/25 03:46 O2 Flow Rate 1 02/19/25 04:45 BMI result Body Mass Index 21.1 Objective Data Active Medications Acetaminophen (Acetaminophen 325 Mg Tablet) 650 mg PO Q6H PRN PRN Reason: Pain, Mild 1-3,fever,headache Atorvastatin Calcium (Atorvastatin Calcium 40 Mg Tablet) 40 mg PO BEDTIME [facility] Last Admin: 02/21/25 19:40 Dose: 40 mg Documented By: SKYE Calcium Carbonate (Calcium Carbonate 750 Mg Tab.Chew) 750 mg PO Q4H PRN PRN Reason: Heartburn Calcium Carbonate/Cholecalciferol (Calcium + Vitamin D 250 Mg Tablet) 500 mg PO DAILY [facility] Last Admin: 02/21/25 08:20 Dose: 500 mg Documented By: SIMRAN Ceftriaxone Sodium (Ceftriaxone Sodium 1 Gm Vial) 1 gm IVPUSH Q24H [facility] Last Admin: 02/21/25 15:22 Dose: 1 gm Documented By: SIMRAN Cyanocobalamin (Cyanocobalamin (Vitamin B-12) 1,000 Mcg Tablet) 1,000 mcg PO DAILY [facility] Last Admin: 02/21/25 08:20 Dose: 1,000 mcg Documented By: SIMRAN Finasteride (Finasteride 5 Mg Tablet) 5 mg PO DAILY [facility] Last Admin: 02/21/25 08:20 Dose: 5 mg Documented By: SIMRAN Magnesium Hydroxide (Milk Of Magnesia 30 Ml Oral.Susp) 30 ml PO DAILY PRN PRN Reason: Constipation Melatonin (Melatonin 3 Mg Tablet) 6 mg PO BEDTIME PRN PRN Reason: Insomnia Silver Sulfadiazine (Silver Sulfadiazine 1 % Cream 20 Gm Tube) 1 appl TOPICAL MOWEFR [facility] Last Admin: 02/20/25 08:49 Dose: 1 appl Documented By: SIMRAN Sodium Chloride (0.9 % Sodium Chloride Flush 3 Ml Syringe) 3 ml IVFLUSH QSHIFT [facility] Last Admin: 02/21/25 19:41 Dose: 3 ml Documented By: SKYE Tamsulosin HCl (Tamsulosin Hcl 0.4 Mg Capsule) 0.4 mg PO DAILY [facility] Last Admin: 02/21/25 08:20 Dose: 0.4 mg Documented By: SIMRAN Vitamin E (Vitamin E (Dl,Tocopheryl Acet) 180 Mg (400 Unit) Capsule) 180 mg PO DAILY [facility] Last Admin: 02/21/25 08:20 Dose: 180 mg Documented By: SIMRAN Labs 02/22/25 05:56 02/22/25 05:56 Labs: Laboratory Results - last 24 hr 02/22/25 05:56 MCV 88.1 MCH 30.2 MCHC 34.2 RDW 14.9 Plt Count 147 L MPV 11.2 Absolute Nucleated RBC 0.000 Nucleated RBC % (auto) 0.0 Anion Gap 10 L Estim Creat Clear Calc 31.0 Estimated GFR 49 Random Glucose 93 Calcium 8.2 L Assessment and Plan (1) Acute kidney injury superimposed on CKD: Status: Acute (2) Gross hematuria: Status: Acute Plan Patient is an 89-year-old male with a past medical history significant for phimosis, left inguinal hernia, TIA, HTN and HLD, who presented to the ED due to reported penile trauma. acute metabolic encephalopathy due to Urinary tract infection with obstructive uropathy, urinary retention, bilateral hydroureteronephrosis, and gross hematuria - no sepsis - abdominopelvic CT with likley blood in bladder; prostatomegaly; bilateral hydronephrosis and hydroureter, possibly related to bladder outlet obstruction; left inguinal hernia redemonstrated containing fat and loops of nondilated distal colon. - UA+, culture with e coli; started on ceftriaxone in ED, switched to Cipro based on review of previous sensitivities, then switched back ceftriaxone on 02/20 - urology consulted, start tamsulosin and finasteride - started on CBI due to continued hematuria, urinary retention, and persistent elevated creatinine on 02/21; large clot noted on catheter insertion, has been clear since then - follow CBC and BMP - AO to self, place, and time; appears back to baseline - will need urology follow up outpatient office cystoscopy and outpatient circumcision versus dorsal slit Inguinal hernia - chronically 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; patient without pain - general surgery consulted, no urgent surgical intervention necessary at this time MASSIEL On CKD3 - creatinine persistently high as 1.74, finally improving to 1.38 today after CBI - likely secondary to bladder outlet obstruction from clots - continue tamsulosin and finasteride as above - avoid nephrotoxins when possible - monitor BMP Acute on chronic anemia - hemoglobin stable - in the setting of hematuria - no indication for transfusion at this time - can resume Plavix and asa - monitor CBC CAD - continue Plavix and aspirin due to hematuria HTN - continue home meds HLD - continue home meds Full code VTE prophylaxis: Pneumoboots Patient will require continued hospitalization for treatment of continued hematuria with CBI as well as safe disposition home. Pt with plans on being discharged tomorrow to [facility] Stroke Does the patient have a stroke diagnosis?: No VTE Prior VTE?: No VTE Risk Level:: Medical - moderate - high VTE Device Contraindication: N/A - Device Ordered VTE Drug Contraindication: Treatment Not Indicated
[2025-02-22 07:52] VITALS: BP 136/71; PULSE 69; RESP 16; TEMP 36.3; O2SAT 94
[2025-02-22] MEDS: 0.9 % Sodium Chloride Flush 3 ML SYRINGE IVFLUSH ×3 (09:05→20:20)
[2025-02-22] MEDS: Vitamin E (Dl,Tocopheryl Acet) 180 MG (400 UNIT) CAPSULE PO (09:06)
[2025-02-22] MEDS: Calcium + Vitamin D 250 MG TABLET 500 MG PO (09:06)
[2025-02-22] MEDS: Silver Sulfadiazine 1 % Cream 20 GM TUBE 1 APPL TOPICAL (09:09)
--- NOTE | 2025-02-22 11:00 | MHC.CM.PN ---
PER MD ROUNDS, PLAN TO STOP CBI TODAY, POSSIBLE DC TOMORROW DCP: STR AT [facility]
--- NOTE | 2025-02-22 11:20 | MHC.CLN ---
F/U DIET RX REGULAR. SUPPLEMENT ENSURE BID (700 KCALS, 40 G PROTEIN) TO PROMOTE WOUND HEALING. SKIN WITH DTI TO COCCYX. PO INTAKE USUALLY VERY GOOD. CONTINUE TO FOLLOW FOR PO INTAKE AND SKIN INTEGRITY.
--- NOTE | 2025-02-22 11:24 | P.PNNP_ITS ---
Subjective Subjective Date of Service: 02/22/25 Interval history: Here with urethral swelling and hematuria, MASSIEL. CBI yesterday, creatinine is now improving. Urine at bedside appears clear yellow, no clots/gross hematuria noted. patient reports he is feeling well, denies complaints/concerns. Physical Exam 2 Vital Signs: Vital Signs: Last Vital Signs Temp 97.4 F 02/22/25 07:52 Pulse 69 02/22/25 07:52 Resp 16 02/22/25 07:52 BP 136/71 02/22/25 07:52 Pulse Ox 94 02/22/25 07:52 O2 Del Method Room Air 02/22/25 07:52 O2 Flow Rate 1 02/19/25 04:45 BMI result Body Mass Index 21.1 Const: General: no acute distress, alert and awake Resp: Effort & Inspection: normal respiratory effort and able to speak in complete sentences Auscultation: clear to auscultation bilaterally Cardio: Rate: regular rate Rhythm: regular rhythm Heart sounds: S1 normal heart sound present and S2 normal heart sound present GI: Palpation (GI): Soft to palpation and nontender Skin: Lesions: other (shins covered in dressings) Extrem: General: No edema Objective Data Labs 02/22/25 05:56 02/22/25 05:56 Labs: Laboratory Results - last 24 hr 02/22/25 05:56 WBC 7.8 RBC 2.52 L Hgb 7.6 L Hct 22.2 L MCV 88.1 MCH 30.2 MCHC 34.2 RDW 14.9 Plt Count 147 L MPV 11.2 Absolute Nucleated RBC 0.000 Nucleated RBC % (auto) 0.0 Sodium 138 Potassium 3.8 Chloride 108 Carbon Dioxide 24 Anion Gap 10 L BUN 30 H Creatinine 1.38 Estim Creat Clear Calc 31.0 Estimated GFR 49 Random Glucose 93 Calcium 8.2 L Microbiology Microbiology Results: Microbiology 02/18/25 23:45 Blood - Arterial Blood Culture - Preliminary No growth after 48 hours. 02/18/25 23:45 Blood - Arterial Blood Culture - Preliminary No growth after 48 hours. 02/18/25 22:49 Urine clean catch - Clean Catch Midstream Urine Culture - Final Escherichia coli Procedures Date of Service Date of Service: 02/22/25 Assessment & Plan Assessment and plan (1) Acute kidney injury superimposed on CKD: Status: Acute Plan MASSIEL on CKD likely secondary to urinary obstruction creatinine has improved with CBI- may discontinue from renal standpoint now that urine is clear. Patient is ok for discharge from a renal standpoint recommend avoiding nephrotoxins continue supportive care Discussed with Dr Haynes. Time Spent With Patient Time: Total time managing care of this patient today ____ minutes. Progress Note: Quality Stroke Does the patient have a stroke diagnosis?: No
[2025-02-22 12:00] VITALS: BP 94/52; PULSE 81; RESP 16; TEMP 36.4; O2SAT 93
[2025-02-22 14:32] VITALS: BP 102/68
[2025-02-22 15:32] VITALS: BP 123/58; PULSE 78; RESP 16; TEMP 36.9; O2SAT 95
[2025-02-22 19:22] VITALS: BP 122/59; PULSE 87; RESP 16; TEMP 36.1; O2SAT 96
[2025-02-23] VITALS: BP 110/75; PULSE 75; RESP 16; TEMP 36.9; O2SAT 96
[2025-02-23 03:29] VITALS: BP 138/66; PULSE 75; RESP 16; TEMP 36.7; O2SAT 95
--- NOTE | 2025-02-23 07:23 | P.CDIM_ITS ---
PROVIDER RESPONSE TEXT: To clarify, the appropriate diagnosis supported by the clinical indicators: Pressure Injury left heel Stage 1 QUERY TEXT: PHYSICIAN'S DOCUMENTATION REQUEST Date of Query: 02/21/2025 08:46 AM EDT Patient Name: Yeison Williamson Admit Date: 02/19/2025 Dear Tabby GAMBOA, A review of the medical record indicates additional documentation may be needed. Please review below and update the documentation accordingly. Clinical Indicators: Wound care notes 02/20/25 - Pressure Injury left heel Stage 1 - Present on admission Intact, reddened, nonblanching Off loading and pressure redistribution with foam dressings. Based on the above, could you please provide further information regarding the ulcer/wound/injury: Pressure Injury left heel Stage 1 Other specifics Other (explain) Clinically unable to determine (explain) Thank you, Luci Mcfarlane, CCS, CDIS Use of terms such as suspected, likely, concern for, or probable (associated with a specific diagnosis that is being evaluated, monitored, or treated as if it exists) are acceptable and can be coded in the inpatient setting, when documented at the time of discharge. Please use your independent medical judgment in providing your response. THIS QUERY IS PART OF THE PERMANENT MEDICAL RECORD
[2025-02-23 07:27] VITALS: BP 146/73; PULSE 79; RESP 18; TEMP 36.8; O2SAT 93
--- NOTE | 2025-02-23 07:27 | P.CDIM_ITS ---
PROVIDER RESPONSE TEXT: To clarify, the appropriate diagnosis supported by the clinical indicators: Pressure Injury coccyx: Stage 2 QUERY TEXT: PHYSICIAN'S DOCUMENTATION REQUEST Date of Query: 02/21/2025 08:42 AM EDT Patient Name: Yeison Williamson Admit Date: 02/19/2025 Dear Tabby GAMBOA, A review of the medical record indicates additional documentation may be needed. Please review below and update the documentation accordingly. Clinical Indicators: Wound care notes dated 02/20/25 - Coccyx deep tissue pressure injury - present on admission deep maroon/purple intact nonblanching discoloration. Off loading, pressure redistribution with foam dressing. Based on the above, could you please provide further information regarding the ulcer/wound/injury: Pressure Injury coccyx Please include the stage 1, 2, 3, 4, unstageable etc. Deep tissue injury coccyx possible, probable, suspected etc. Other (explain) Clinically unable to determine (explain) Thank you, Luci Mcfarlane, CCS, CDIS Use of terms such as suspected, likely, concern for, or probable (associated with a specific diagnosis that is being evaluated, monitored, or treated as if it exists) are acceptable and can be coded in the inpatient setting, when documented at the time of discharge. Please use your independent medical judgment in providing your response. THIS QUERY IS PART OF THE PERMANENT MEDICAL RECORD
[2025-02-23] MEDS: Vitamin E (Dl,Tocopheryl Acet) 180 MG (400 UNIT) CAPSULE PO (08:29)
[2025-02-23] MEDS: Calcium + Vitamin D 250 MG TABLET 500 MG PO (08:29)
[2025-02-23] MEDS: 0.9 % Sodium Chloride Flush 3 ML SYRINGE IVFLUSH (08:32)
[2025-02-23 08:50] LABS: Anion Gap 11 (12-20); Blood Urea Nitrogen 25 mg/dL (9-16); Calcium 8.5 mg/dL (8.4-10.2); Carbon Dioxide 25 mmol/L (22-29); Chloride 107 mmol/L (96-108); Creatinine Clr Calc Pharmacy 34.5; Estimated Glomerular Filt Rate 55; Potassium 3.9 mmol/L (3.3-5.1); Sodium 139 mmol/L (135-145)
--- NOTE | 2025-02-23 09:22 | PM.DS ---
DS: Providers Provider Date of Service: 02/23/25 Date of admission: 02/18/25 23:47 Date of discharge: 02/23/25 Primary care physician: Unknown Physician Consults: 02/18/25 23:49 Consult to Urology Routine Consulting Provider: [facility] Reason for consultation: phimosis; hematuria; uti 02/19/25 01:40 Consult to General Surgery Routine Consulting Provider: [facility] Reason for consultation: inguinal hernia, non-reducible Has provider been notified: Yes 02/19/25 21:35 Consult to Wound Care Routine Reason for consultation: open wound to coccyx 02/21/25 07:38 Consult to Nephrology Routine Consulting Provider: [facility] Reason for consultation: Persistent elevated creatinine above baseline DS: Diagnosis Discharge Diagnosis (1) Acute kidney injury superimposed on CKD: Status: Acute (2) Gross hematuria: Status: Acute DS: Summary Hospital Course Hospital Course: From admission HPI: Date of Service: 02/19/25 Attending physician on admission: Deric Real Chief Complaint: penile trauma Patient is an 89-year-old male with a past medical history significant for phimosis, left inguinal hernia, TIA, HTN and HLD, who presented to the ED due to reported penile trauma. The patient reports that he hit his penis while urinating and has had swelling. The patient is a poor historian and unable to provide any additional history. Upon further examination in the emergency room it was determined that the patient has urethral swelling secondary to gross hematuria and a large blood clot in the urethra. There were able to place a coude catheter in the ED. UA came back positive for UTI. He also has a nonreducible left inguinal hernia. Dr. Osborne was able to review the abdominopelvic CT and will follow patient, no surgical emergency. Hospital course: Pt was admitted to the hospital for acute metabolic encephalopathy in the setting of UTI complicated by acute urinary retention, bilateral hydronephrosis, MASSIEL on CKD 3, and gross hematuria with clots. Pt was started on IVF and broad-spectrum antibiotics that was eventually switched to ceftriaxone based on sensitivities. Griffiths catheter was inserted and pt was started on finasteride and tamsulosin per urology request. Patient's H&H was stable, though gross hematuria still noted inpatients Griffiths. Creatinine remained elevated even after IVF and bladder scan showed >400cc despite Griffiths insertion. The pt was started on CBI where a large clot was initially noted but otherwise was clear. Creatinine soon improved and has been cleared by nephrology. Was also noted to have a right inguinal hernia which has been chronically 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. Seen and evaluated by General surgery who felt there was no urgent surgical intervention necessary at this time. Pt was seen and evaluated by Physical therapy who recommended short-term rehab for strength and conditioning. Pt will be discharged on prescriptions for cefuroxime 250 mg b.i.d. x3 days, finasteride 5 mg daily, and tamsulosin 0.4 mg daily. Pt should resume all his other home medications. Additional details concerning hospital stay as listed in problem list below. acute metabolic encephalopathy due to Urinary tract infection with obstructive uropathy, urinary retention, bilateral hydroureteronephrosis, and gross hematuria - no sepsis - abdominopelvic CT with likley blood in bladder; prostatomegaly; bilateral hydronephrosis and hydroureter, possibly related to bladder outlet obstruction; left inguinal hernia redemonstrated containing fat and loops of nondilated distal colon. - UA+, culture growing e coli; started on ceftriaxone in ED, switched to Cipro based on review of previous sensitivities, then switched back ceftriaxone on 02/20; dc on cefuroxime 250 mg b.i.d. x3 days - urology consulted, start tamsulosin and finasteride - started on CBI due to continued hematuria, urinary retention, and persistent elevated creatinine on 02/21; large clot noted on catheter insertion, has been clear since then - encephalopathy resolved: AO to self, place, and time, appears back to baseline - will need urology follow up in 1-2 weeks for outpatient office cystoscopy, circumcision versus dorsal slit, and voiding trial Inguinal hernia - chronically 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; patient without pain, abd exam benign - general surgery consulted, no urgent surgical intervention necessary at this time MASSIEL on CKD3 - creatinine persistently high as 1.74, improving to 1.24 today after CBI - likely secondary to bladder outlet obstruction from clots - continue tamsulosin and finasteride as above - avoid nephrotoxins when possible Acute on chronic anemia - hemoglobin stable - in the setting of hematuria - no need for transfusion - Plavix and asa resumed CAD - continue Plavix and aspirin HTN - continue home meds HLD - continue home meds Time Attestation Discharge Coordination Time (in mins): 40 Quality: Safe Use of Opioids Does Pt have an Active Cancer Diagnosis on the Problem List?: No Quality: Stroke Does the patient have a stroke diagnosis?: No Physical Exam Exam: Exam: General: AOx3, no acute distress. Frail, elderly. Wearing a red stocking cap. Resp: CTA bilaterally CVS: S1, S2, RRR GI: Soft, NT, no distention Skin: Warm, dry : Griffitsh with clear yellow-colored urine; no hematuria or clots noted Neuro: Cranial nerves II-XII grossly intact bilaterally. Motor grossly intact bilaterally Extremities: No edema Psych: Appropriate affect Vital Signs: Vital Signs: Last Vital Signs Temp 98.2 F 02/23/25 07:27 Pulse 79 02/23/25 07:27 Resp 18 02/23/25 07:27 BP 146/73 H 02/23/25 07:27 Pulse Ox 93 02/23/25 07:27 O2 Del Method Room Air 02/23/25 07:27 O2 Flow Rate 1 02/19/25 04:45 BMI result Body Mass Index 21.1 DS: Data Data Completed and Pending Labs on day of discharge: Laboratory Results - last 24 hr 02/23/25 08:28 Sodium 139 Potassium 3.9 Chloride 107 Carbon Dioxide 25 Anion Gap 11 L BUN 25 H Creatinine 1.24 Estim Creat Clear Calc 34.5 Estimated GFR 55 Random Glucose 94 Calcium 8.5 Preliminary micro results at discharge 02/18/25 23:45 Blood Culture - Preliminary Blood - Arterial No growth after 48 hours. 02/18/25 23:45 Blood Culture - Preliminary Blood - Arterial No growth after 48 hours. Discharge Plan Discharge Anticipated Discharge Date/Time: 02/23/25 11:35 Patient Disposition: Xfer SNF Discharge Diagnosis: Acute metabolic encephalopathy in the setting of UTI Referrals: [facility] [place]Provider Group, Urology] - 1 Week Referral Note: F/U for phimosis, acute urinary retention, hematuria, UTI Physician,Unknown J [Primary Care Provider, Medical] - 1 Week Discharge Medications: New tamsulosin 0.4 mg Capsule 0.4 mg PO DAILY Qty: 90 0RF finasteride 5 mg Tablet 5 mg PO DAILY Qty: 90 0RF cefuroxime axetil 250 mg tablet 250 mg PO BID Qty: 6 0RF Rx Instructions: Take one pill twice a day for the next 3 days, starting on the morning of 02/24 and ending on 02/26 Continued atorvastatin 80 mg Tablet 40 mg PO BEDTIME cyanocobalamin (vitamin B-12) [Vitamin B-12] 1,000 mcg Tablet 1,000 mcg PO DAILY hydrochlorothiazide 25 mg Tablet 12.5 mg PO DAILY calcium carbonate-vitamin D3 600 mg-5 mcg (200 unit) Tablet 1 tab PO DAILY silver sulfadiazine 1 % Cream 1 appl TOPICAL MOWEFR Rx Instructions: apply a 1.5 mm thickness clopidogrel 75 mg Tablet 75 mg PO DAILY vitamin E (dl, acetate) 45 mg (100 unit) Capsule 45 mg PO DAILY aspirin 81 mg Tablet,Delayed Release (Dr/Ec) 81 mg PO DAILY Qty: 0 0RF Discharge Orders: Discharge Order (Routine); Ordered 02/23/25 Ordered By: Tabby Rod Activity on Discharge: As tolerated Stand Alone Forms: Patient Portal Discharge page Print Language: Unable To Collect Care Plan Goals: See below Health Concerns: Phimosis Hematuria Acute metabolic encephalopathy UTI Urinary retention MASSIEL on CKD Hydronephrosis Hydroureter Plan of Treatment: You were admitted to the hospital for acute metabolic encephalopathy in the setting UTI, MASSIEL, bilateral hydronephrosis, and gross hematuria likely secondary to acute urinary retention from enlarged prostate. You were treated with IV antibiotics to good effect, and Griffiths catheter was placed. You were eventually placed on continuous bladder irrigation as your creatinine remained elevated. You were seen and evaluated by Urology who started you on both tamsulosin and finasteride. You responded well to therapies: mentation improved back to baseline, and both MASSIEL and hematuria resolved. You were seen and evaluated by Physical therapy who recommended short-term rehab for optimal improvement in strength and conditioning. You will be discharged to short-term rehab on oral antibiotics for the next 3 days as well as with Griffiths catheter in place. You will need to follow up with Urology. -- take cefuroxime 250 mg twice a day with meals for the next 3 days, starting 02/24 in ending on 02/25 -- start taking tamsulosin 0.4 mg daily and finasteride 5 mg daily -- follow up Urology in 1-2 weeks for outpatient office cystoscopy, circumcision vs dorsal slit, and voiding trial -- resume all of your other home medications, including aspirin and clopidogrel -- for chronically incarcerated right inguinal hernia, no surgical intervention necessary Assessment: See above
== END 2025-02-23 13:30 | disposition skilled nursing facility (03) | DRG 689 ==
LOC: HO.ED 19:41 → HO.EDOVER 23:54 → HO.S3 02-19 19:20
PROVIDERS: Admitting Provider Hospitalist; Emergency Provider Emergency Medicine Emergency Medical Services; Visit Provider Student in an Organized Health Care Education/Training Program
DX: N13.6 Pyonephrosis (principal); G93.41 Metabolic encephalopathy; K40.30 Unilateral inguinal hernia, with obstruction, without gangrene, not specified as recurrent; N17.9 Acute kidney failure, unspecified; N18.32 Chronic kidney disease, stage 3b; N40.1 Benign prostatic hyperplasia with lower urinary tract symptoms; E78.5 Hyperlipidemia, unspecified; D63.1 Anemia in chronic kidney disease; N47.1 Phimosis; I12.9 Hypertensive chronic kidney disease with stage 1 through stage 4 chronic kidney disease, or unspecified chronic kidney disease; I25.10 Atherosclerotic heart disease of native coronary artery without angina pectoris; R33.8 Other retention of urine; S39.94XA Unspecified injury of external genitals, initial encounter; X58.XXXA Exposure to other specified factors, initial encounter; R31.0 Gross hematuria; B96.20 Unspecified Escherichia coli [E. coli] as the cause of diseases classified elsewhere; L89.152 Pressure ulcer of sacral region, stage 2; L89.621 Pressure ulcer of left heel, stage 1; Z97.4 Presence of external hearing-aid; Z79.02 Long term (current) use of antithrombotics/antiplatelets; Z79.899 Other long term (current) drug therapy
CPT/HCPCS: 36415; 74177; 80048; 80053; 80076; 81001; 82803; 82947; 83605; 83690; 85014; 85018; 85025; 85027; 87040; 87086; 87088; 87186; 97116; 97162; 99285; J0696; J0744; J1644; J7120; Q9967

== ENCOUNTER → 2025-02-18 19:56 | Outpatient (BNV) | payer OTHER, SELFPAY | PROVIDERS: Emergency Provider Emergency Medicine Emergency Medical Services; Visit Provider Radiology Diagnostic Radiology | DX: N13.30 Unspecified hydronephrosis (principal); K80.20 Calculus of gallbladder without cholecystitis without obstruction; K40.90 Unilateral inguinal hernia, without obstruction or gangrene, not specified as recurrent; K57.90 Diverticulosis of intestine, part unspecified, without perforation or abscess without bleeding | CPT/HCPCS: 74177 ==

== ENCOUNTER → 2025-02-18 23:47 | Outpatient (BNV) | payer OTHER, MEDICARE, SELFPAY | PROVIDERS: Admitting Provider Hospitalist; Emergency Provider Emergency Medicine Emergency Medical Services; Visit Provider Student in an Organized Health Care Education/Training Program | DX: G93.41 Metabolic encephalopathy (principal); N39.0 Urinary tract infection, site not specified; R33.8 Other retention of urine; R31.0 Gross hematuria; K40.90 Unilateral inguinal hernia, without obstruction or gangrene, not specified as recurrent; N17.9 Acute kidney failure, unspecified; N18.9 Chronic kidney disease, unspecified; D64.9 Anemia, unspecified | CPT/HCPCS: 99223; 99232; 99499 ==

== ENCOUNTER → 2025-02-18 23:47 | Outpatient (BNV) | payer OTHER, MEDICARE, SELFPAY | PROVIDERS: Admitting Provider Hospitalist; Emergency Provider Emergency Medicine Emergency Medical Services; Visit Provider Nurse Practitioner Family | DX: N17.9 Acute kidney failure, unspecified (principal); N18.9 Chronic kidney disease, unspecified | CPT/HCPCS: 99222 ==

== ENCOUNTER → 2025-02-18 23:47 | Outpatient (BNV) | payer OTHER, MEDICARE, SELFPAY | PROVIDERS: Admitting Provider Hospitalist; Emergency Provider Emergency Medicine Emergency Medical Services; Visit Provider Urology | DX: R31.0 Gross hematuria (principal); R33.8 Other retention of urine; N39.0 Urinary tract infection, site not specified; N47.1 Phimosis | CPT/HCPCS: 99222 ==

== ENCOUNTER → 2025-02-18 23:47 | Outpatient (BNV) | payer OTHER, SELFPAY | PROVIDERS: Admitting Provider Hospitalist; Emergency Provider Emergency Medicine Emergency Medical Services; Visit Provider Physician Assistant Surgical | DX: K40.90 Unilateral inguinal hernia, without obstruction or gangrene, not specified as recurrent (principal) | CPT/HCPCS: 99222; 99231 ==

== ENCOUNTER 2025-03-04 11:02 | Inpatient (IN) | payer OTHER, SELFPAY ==
--- NOTE | ~2025-03-04 | XR_ITS ---
EXAMINATION: XR CHEST 1 VIEW HISTORY: mental status change COMPARISON: Comparison is made with the prior examination dated 08/20/2024. FINDINGS: A single AP portable view of the chest performed at 12:01 PM is submitted. There are low lung volumes. There are probable small bilateral pleural effusions. Underlying atelectasis or pneumonia at the right lung base is not excluded. There is no pneumothorax or pulmonary vascular congestion. The heart is normal in size. There is degenerative disc disease of the spine. XR/XR chest 1V IMPRESSION: Low lung volumes. Probable small bilateral pleural effusions. Underlying atelectasis or pneumonia at the right lung base is not excluded. Electronically signed by: Luis Manuel Marquez MD 03/04/2025 12:12 PM EDT
--- NOTE | ~2025-03-04 | CT_ITS ---
EXAMINATION: CT HEAD WITHOUT IV CONTRAST HISTORY: mental status change. TECHNIQUE: Unenhanced helical CT of the head was performed per standard departmental protocol. Coronal and sagittal reformats of the head were also evaluated. One or more of the following techniques was used for dose reduction: Automated exposure control, adjustment of the mA and/or kV according to patient size, use of iterative reconstruction technique. DLP: 621 mGy-cm COMPARISON: Comparison is made with the prior examination dated 10/15/2023. FINDINGS: BRAIN: There is diffuse prominence of the ventricular system and cortical sulci, consistent with atrophy. Periventricular and subcortical white matter hypodensities are noted which are nonspecific, but often seen in the setting of small vessel ischemic disease. 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 There is no mass effect or midline shift. No intra- or extra-axial fluid collections are identified. SINUSES: The visualized paranasal sinuses are clear. There is persistent opacification of the bilateral mastoid air cells. ORBITS: The visualized orbits are unremarkable. BONES/SOFT TISSUES: The extracranial soft tissues are unremarkable. The calvarium is intact. No suspicious lytic or sclerotic lesions. CT/CT head/brain wo IV con IMPRESSION: No acute intracranial abnormality. Electronically signed by: Luis Manuel Marquez MD 03/04/2025 01:10 PM EDT
--- NOTE | ~2025-03-04 | CT_ITS ---
CLINICAL HISTORY: hypoxia CT chest without contrast Comparison: None provided Findings: Small left pleural effusion and moderate right pleural effusion. Overlying atelectasis. Probable superimposed consolidation in the basilar and posterior right lower lobe overlying the pleural effusion. Otherwise no acute airspace opacity. Heart size normal. No pericardial effusion. Normal caliber thoracic aorta. No acute upper abdominal abnormality. Bones intact. IMPRESSION: 1. Bilateral pleural effusions with possible right lower lobe pneumonia. This document has been electronically signed by: Gideon Mccurdy MD on 03/05/2025 19:29:16
[2025-03-04 11:08] VITALS: BP 158/68; PULSE 61; PULSE 65; RESP 16; O2SAT 100; O2SAT 99; BMI 21.3
--- NOTE | 2025-03-04 11:14 | ECG_ITS ---
Test Reason : sob Blood Pressure : */* mmHG Vent. Rate : 61 BPM Atrial Rate : 61 BPM P-R Int : 110 ms QRS Dur : 94 ms QT Int : 456 ms P-R-T Axes : 39 57 84 degrees QTcB Int : 459 ms Sinus rhythm with short VA Nonspecific T wave abnormality Abnormal ECG When compared with ECG of 20-Aug-2024 11:47, Aberrant conduction is no longer Present VA interval has decreased Nonspecific T wave abnormality no longer evident in Inferior leads T wave inversion no longer evident in Anterior leads Referred By: Marco Delaney Electronically Signed By: Abdoul Josue
--- NOTE | 2025-03-04 11:17 | ED.AMS ---
HPI - Altered Mental Status General Chief Complaint: Altered Mental Status Stated Complaint: FOUND UNRESP @SNF,ALERT/CONFUSED PER EMS Time Seen by Provider: 03/04/25 11:07 Source: patient, EMS and old records reviewed Mode of arrival: EMS Limitations: altered mental status History of Present Illness ED Provider: DR. Delaney HPI narrative: 89-year-old male with PMHx significant for phimosis, left inguinal hernia, TIA, HTN, HLD came in from [facility] patient reside with his in the same room, as per EMS history patient was noticed by his yesterday to increased confusion, patient woke up this morning feeling generalized weakness, head a periods of unresponsiveness this morning to the staff for about 10 minutes then patient started to regained his consciousness found to be hypoxic 87% on room air patient was placed on 15 L non-rebreather O2 sat went to 100%, patient now is awake, alert, slightly confused, overall patient is a poor historian, patient is accompanied with MOLST form that is not a fully completed and signed as per record this hospital patient has been a full code, patient now has no headache, no chest pain, no shortness of breath, no abdominal pain , no fall, no injury, no head trauma, no fever, no chills, no coughing, no weakness, no numbness, initial stroke screening is unremarkable. Patient had recent hospitalization for penile injury was discharged on Griffiths catheter. Related Data Home Medications ?Medication ?Instructions ?Recorded ?Confirmed atorvastatin 80 mg tablet 40 mg PO BEDTIME 08/18/23 02/19/25 cyanocobalamin (vitamin B-12) 1,000 mcg PO DAILY 08/20/24 02/19/25 1,000 mcg tablet (Vitamin B-12) hydrochlorothiazide 25 mg tablet 12.5 mg PO DAILY 08/20/24 02/19/25 calcium 600 mg (as 1 tab PO DAILY 08/21/24 02/19/25 carbonate)-vitamin D3 5 mcg (200 unit) tablet clopidogrel 75 mg tablet 75 mg PO DAILY 02/19/25 02/19/25 silver sulfadiazine 1 % topical 1 appl topical MOWEFR 02/19/25 02/19/25 cream vitamin E (dl, acetate) 45 mg (100 45 mg PO DAILY 02/19/25 02/19/25 unit) capsule Previous Rx's ?Medication ?Instructions ?Recorded aspirin 81 mg tablet,delayed 81 mg PO DAILY #0 tabs 06/03/23 release cefuroxime axetil 250 mg tablet 250 mg PO BID #6 tabs 02/23/25 finasteride 5 mg tablet 5 mg PO DAILY #90 tabs 02/23/25 tamsulosin 0.4 mg capsule 0.4 mg PO DAILY #90 caps 02/23/25 Allergies Allergy/AdvReac Type Severity Reaction Status Date / Time No Known Allergies (No Known Allergy Verified 03/04/25 11:11 Allergies*) Review of Systems Review of Systems: All other systems are reviewed and are negative Constitutional: Reports as per HPI and Reports no additional constitutional complaints Eyes: Reports as per HPI and Reports no additional eye complaints Reports system reviewed and no additional complaints, except as documented Cardiovascular: Reports as per HPI and Reports no additional cardiovascular complaints Respiratory: Reports as per HPI and Reports no additional respiratory complaints Gastrointestinal: Reports as per HPI and Reports no additional gastrointestinal complaints Genitourinary: Reports no additional female genitourinary complaints Musculoskeletal: Reports no additional musculoskeletal complaints Skin/Breast: Reports system reviewed and no additional complaints, except as docu Psychiatric: Reports no additional psychiatric complaints Endocrine: Reports no additional endocrine complaints Hematologic/Lymphatic: Reports no additional hematologic/lymphatic complaints Allergic/Immunologic: Reports no additional allergic/immunologic complaints Reports system reviewed and no additional complaints, except as documented and Reports Abnormal speech present [facility] Past Medical History Medical History Chronic anemia Inguinal hernia Calcified mesenteric mass Left inguinal hernia Abnormal CT scan Inguinal hernia with strangulation TIA (transient ischemic attack) Hypercholesterolemia Hypertension Surgical History History of right inguinal hernia repair Social History Social History Household Members: Spouse Housing: House Housing Other:: From STR Do you presently have visiting nurse or other home services: Yes ([employer]) Unable to assess alcohol history related to: Unknown Alcohol intake: former Patient Tobacco Use Status: Never used Tobacco Smoked in Last 30 Days: No e-Cigarette/Vaping Use: Never Used Second Hand Smoke Exposure: No Use of substances other than those prescribed or required for medical reasons: No Advance Directives: Yes Advance Directives on File: Yes Advance Directives Date on File: 09/17/22 Do you have a plan to hurt others: No Plan service: Yes Current occupational status: retired Physical Exam ED Vital Signs: Vital Signs - 24 hr 03/04/25 11:08 03/04/25 11:40 03/04/25 12:02 Pulse Rate 61 64 60 Respiratory Rate 16 17 15 Blood Pressure 153/63 H 148/61 H Pulse Oximetry 100 100 94 Oxygen Delivery Method Non-Rebreather Mask Room Air Room Air BMI result Body Mass Index 21.3 Vital signs have been reviewed and appear to be correct. Blood pressure elevated. Heart rate normal. Respiratory rate normal. Temperature normal. Oxygen saturation normal. Appearance: Alert. Oriented only to place,No acute distress. Head: Normal external exam. Normocephalic. Atraumatic. No Mckeon signs noted. No raccoon eyes noted Eyes: PERRLA. EOMI. Conjunctiva and sclera normal. Eyelids normal. ENT: TM's Normal. Pharynx normal. Uvula midline. Moist mucous membranes. No trismus noted. No drooling noted. No muffled voice noted. Neck: Normal inspection. Neck supple. FROM. No adenopathy. Thyroid Normal. No meningeal signs. No neck mass noted. CVS: Normal heart rate and rhythm. Heart sound normal. No murmurs noted. Pulses normal throughout. Respiratory: No respiratory distress. Painless inspiration. Breath sounds normal. No wheezes/rales/rhonchi noted. Chest nontender. No accessory muscle usage noted or decreased air movement noted. Abdomen: Soft and nontender. Bowel sounds normal in all 4 quadrants. No distention noted. No organomegaly noted. No visible injury noted. Back: No CVA tenderness. Full range of motion noted. Skin: Skin warm and dry. Normal skin color. Normal skin turgor. No rashes/lesions/lacerations noted. Extremities: No lower extremity edema. Extremities exhibit normal range of motion. Extremities nontender. Neuro: Oriented [address] Cranial nerve exam: II-XII are grossly intact No motor deficit. No sensory deficit. Reflexes normal. Course Reevaluation(s) Reevaluation #1: 89-year-old male came in after had unresponsiveness period sent for further evaluation patient now is responsive and less confused, workup today reveals baseline neuro exam was unremarkable head CT, patient on Griffiths catheter x2 weeks but no UTI, unremarkable chest x-ray, labs reveals hyponatremia will check urine and serum osmolality, will start the patient on normal saline at 50 cc/hour slowly replace sodium. Will admit for further evaluation. Time: 13:00 Medications Administered Generic Name Dose Route Start Last Admin Trade Name Freq PRN Reason Stop Dose Admin Sodium Chloride 1,000 mls @ 50 mls/hr 03/04/25 12:00 03/04/25 12:02 Ns IVCONT 50 mls/hr .Q20H FERNANDO Administration Discontinued Medications Generic Name Dose Route Start Last Admin Trade Name Freq PRN Reason Stop Dose Admin Ceftriaxone Sodium 1 gm 03/04/25 11:16 03/04/25 11:58 Ceftriaxone Sodium 1 Gm Vial IVPUSH 03/04/25 11:17 1 gm ONCE ONE Administration Medical Decision Making Differential Diagnosis Differential Diagnoses: The differential diagnosis associated with the presentation includes ( Pneumonia, pneumothorax, pleural effusion, MASSIEL, intracranial bleed, electrolyte derangement, severe anemia, UTI, Griffiths catheter problems.) Admission/Observation Consideration of admission/observation: Escalation of care including admission/observation considered Lab Data MDM Lab Attestation statement: I reviewed the patient's lab results. 03/04/25 11:24 03/04/25 11:24 Labs: Lab Results 03/04/25 03/04/25 03/04/25 Range/Units 11:24 11:29 11:35 WBC 6.8 (4.8-10.8) X10*3/uL RBC 2.77 L (4.60-5.80) X10*6/uL Hgb 8.3 L (14.0-18.0) g/dl Hct 24.3 L (42.0-52.0) % MCV 87.7 (80.0-98.0) fL MCH 30.0 (27.0-33.0) pg MCHC 34.2 (31.0-36.0) g/dl RDW 15.1 (11.0-16.0) % Plt Count 294 D (160-400) X10*3/uL MPV 10.3 (9.4-12.4) fL Immature Gran % (Auto) 0.7 H (0.0-0.4) % Neut % (Auto) 58.7 (45-73) % Lymph % (Auto) 23.0 (20-40) % [place] % (Auto) 12.6 H (2-11) % Eos % (Auto) 4.4 H (0-4) % Baso % (Auto) 0.6 (0-2) % Lymph # (Auto) 1.6 (1.2-4.9) X10*3/uL [place] # (Auto) 0.9 (0.1-1.2) X10*3/uL Eos # (Auto) 0.3 (0.0-0.4) X10*3/uL Baso # (Auto) 0.0 (0.0-0.2) X10*3/uL Abs Immat Gran (auto) 0.05 H (0.00-0.03) X10*3/uL Absolute Neuts (auto) 4.0 (2.0-8.3) x10*3/uL Absolute Nucleated RBC 0.000 (0.0-0.012) X10*3/uL Nucleated RBC % (auto) 0.0 (0.0-0.2) /100WBC PT 15.5 H (10.9-12.4) SEC INR 1.4 H (0.9-1.1) VBG pH 7.54 H (7.32-7.43) VBG pCO2 29 mmHg VBG pO2 128 mmHg VBG HCO3 25 (22-26) mmol/L VBG O2 Saturation 99.0 % VBG Base Excess 3.2 mmol/L Sodium 128 L (135-145) mmol/L Potassium 4.4 (3.3-5.1) mmol/L Chloride 99 (96-108) mmol/L Carbon Dioxide 23 (22-29) mmol/L Anion Gap 10 L (12-20) BUN 20 H (9-16) mg/dL Creatinine 1.15 (0.5-1.4) mg/dL Estim Creat Clear Calc 42.3 Estimated GFR > 60 Random Glucose 90 (60-115) mg/dL Lactic Acid 1.4 (0.5-2.0) mmol/L Calcium 8.5 (8.4-10.2) mg/dL Total Bilirubin 0.2 (0.0-1.0) mg/dL Direct Bilirubin < 0.2 (0.0-0.5) mg/dL AST 38 H (5-37) U/L ALT 21 (0-40) U/L Alkaline Phosphatase 82 (39-117) U/L Ammonia 23 (13-55) umol/L Troponin I High Sens 5.9 D (<3.5-35.0) ng/L NT-Pro-B Natriuret Pep 614.6 H (<300) pg/mL Total Protein 6.1 L (6.5-8.0) g/dL Albumin 3.0 L (3.5-5.0) g/dL Lipase 42 (8-78) U/L Urine Color Yellow Urine Appearance Clear Urine pH 7.5 (5.0-9.0) Ur Specific [place] 1.015 (1.005-1.025) Urine Protein Negative (Neg-Trace) mg/dL Urine Glucose (UA) Negative (Negative) mg/dL Urine Ketones Negative (Negative) mg/dL Urine Blood Small (1+) H (Negative) Urine Nitrite Negative (Negative) Ur Leukocyte Esterase Trace H (Negative) Urine RBC >20 H (0-2) /HPF Urine WBC 0-5 (0-5) /HPF Ur Squamous Epith Cells 0-2 (0-2) /HPF Urine Bacteria None Seen (None Seen) Hyaline Casts 0-2 (0-2) /LPF Urine Osmolality 456 (373-1093) mosm/kg Ur Random Sodium 94.0 mmol/L Ur Random Potassium 43.2 mmol/L Ur Random Chloride 84.0 mmol/L Influenza Type A (PCR) NEGATIVE (Negative) Influenza Type B (PCR) NEGATIVE (Negative) RSV RNA Qual (PCR) NEGATIVE (Negative) SARS-CoV-2 RNA (RT-PCR) NEGATIVE (Negative) Independent Interpretation I performed an independent interpretation of an: Plain X-Ray ( Chest: No acute intrathoracic pathology.) and CT Scan ( Head: No acute intrathoracic pathology.) Radiology Impression Discussion of test interpretation with radiology: I have reviewed the radiologist's reading. Critical Care Time Critical Care Time Critical Care Time: Yes Total Critical Care Time: 40 Attestation: The patient was critically ill with a high probability of imminent or life-threatening deterioration. I spent greater than 30 minutes of discontinuous time evaluating the patient, delivering critical care at the bedside, discussing evaluating data with consultants. Critical care time does not include time spent performing separately billable procedures or teaching. Time spent performing critical care was 40 minutes. Discharge Plan Discharge Clinical Impression: Episode of unresponsiveness, Acute hyponatremia Patient Disposition: Admitted As Inpatient Print Language: Unable To Collect
[2025-03-04 11:31] LABS: MANUAL DIFF FLAG NO
[2025-03-04 11:34] LABS: Hematocrit 24.3 % (42.0-52.0); Hemoglobin 8.3 g/dl (14.0-18.0); Imm Gran Abs Auto 0.05 X10*3/uL (0.00-0.03); Imm Gran Pct Auto 0.7 % (0.0-0.4); Lymphocytes Absolute Auto 1.6 X10*3/uL (1.2-4.9); Mean Corpuscular HGB Conc 34.2 g/dl (31.0-36.0); Mean Corpuscular Hemoglobin 30.0 pg (27.0-33.0); Mean Corpuscular Volume 87.7 fL (80.0-98.0); NRBC Abs Auto 0.000 X10*3/uL (0.0-0.012); NRBC Pct Auto 0.0 /100WBC (0.0-0.2); Platelet Count 294 X10*3/uL (160-400); Red Blood Count 2.77 X10*6/uL (4.60-5.80); White Blood Count 6.8 X10*3/uL (4.8-10.8)
[2025-03-04 11:34] LABS: VBG HCO3 25 mmol/L (22-26); VBG O2 % Saturation 99.0 %
[2025-03-04 11:40] VITALS: BP 153/63; PULSE 64; RESP 17; O2SAT 100
[2025-03-04 11:41] LABS: Ammonia 23 umol/L (13-55)
[2025-03-04 11:42] LABS: Venous Blood Gas Refer to POC result
[2025-03-04 11:43] LABS: Appearance Urine Clear; Glucose Urine UA Negative (Negative); PH 7.5 (5.0-9.0); Specific Gravity - Urine 1.015 (1.005-1.025); UMIC TRIGGER UACC YES
[2025-03-04 11:44] LABS: INTERNATIONAL NORM RATIO 1.4 (0.9-1.1); Prothrombin Time 15.5 SEC (10.9-12.4)
[2025-03-04 11:55] LABS: Alanine Aminotransferase 21 U/L (0-40); Albumin Level 3.0 g/dL (3.5-5.0); Alkaline Phosphatase 82 U/L (39-117); Anion Gap 10 (12-20); Aspartate Amino Transferase 38 U/L (5-37); Blood Urea Nitrogen 20 mg/dL (9-16); Calcium 8.5 mg/dL (8.4-10.2); Carbon Dioxide 23 mmol/L (22-29); Chloride 99 mmol/L (96-108); Creatinine Clr Calc Pharmacy 42.3; Estimated Glomerular Filt Rate > 60; Lipase 42 U/L (8-78); NT Pro B Type Natriuretic Pept 614.6 pg/mL (<300); Potassium 4.4 mmol/L (3.3-5.1); Sodium 128 mmol/L (135-145); Total Protein 6.1 g/dL (6.5-8.0); Troponin-I High Sensitivity 5.9 ng/L (<3.5-35.0)
[2025-03-04 12:02] VITALS: BP 148/61; PULSE 60; RESP 15; O2SAT 94
[2025-03-04 12:16] LABS: Resp Syncy Virus RNA Qual PCR NEGATIVE (Negative); SARS COV2 PCR INHOUSE NEGATIVE (Negative)
--- NOTE | 2025-03-04 14:15 | P.HPHOSP_ITS ---
History of Present Illness Date of Service: 03/04/25 Attending physician on admission: Monika Olivares Chief Complaint: unresponsive This is an 89-year-old male with a history of hypertension, hyperlipidemia, TIA, coronary artery disease who presents to the emergency department from [facility]. Per triage note patient had a syncopal episode during physical therapy which lasted approximately 2 minutes. Per emergency room provider note yesterday was noted to have confusion and woke up this morning with generalized weakness, with periods of unresponsiveness for about 10 minutes. When he started regaining consciousness he was hypoxic with an oxygen saturation of 87% on room air. In the ED brain CT was unremarkable, patient was not noted to have any focal neurological deficits. He was afebrile, lab work revealed no elevated white blood cell count. Chemistries were significant for hyponatremia with a sodium of 128. CXR showing underlying atelectasis vs right lung base pneumonia not ruled out. UA negative for acute infection. He was started on gentle fluid rehydration in the emergency department. On my exam, patient is awake and alert, but very hard of hearing and without his hearing aides, therefore he was unable to provide any significant history. He was off oxygen and he was able to follow commands. Review of Systems 2 Review of Systems: limited due to communication without hearing aides [facility] Medical History Chronic anemia Inguinal hernia Calcified mesenteric mass Left inguinal hernia Abnormal CT scan Inguinal hernia with strangulation TIA (transient ischemic attack) Hypercholesterolemia Hypertension Surgical History History of right inguinal hernia repair Social History Household Members: Spouse Housing: House Housing Other:: From [facility] Do you presently have visiting nurse or other home services: Yes ([employer]) Unable to assess alcohol history related to: Unknown Alcohol intake: former Patient Tobacco Use Status: Never used Tobacco Smoked in Last 30 Days: No e-Cigarette/Vaping Use: Never Used Second Hand Smoke Exposure: No Use of substances other than those prescribed or required for medical reasons: No Advance Directives: Yes Advance Directives on File: Yes Advance Directives Date on File: 09/17/22 Do you have a plan to hurt others: No Plan service: Yes Current occupational status: retired Meds Allergies Allergy/AdvReac Type Severity Reaction Status Date / Time No Known Allergies (No Known Allergy Verified 03/04/25 11:11 Allergies*) Active Medications: Current Medications Sodium Chloride (Ns) 1,000 mls @ 50 mls/hr IVCONT .Q20H FERNANDO Last Admin: 03/04/25 12:02 Dose: 50 mls/hr Home Medications ?Medication ?Instructions ?Recorded ?Confirmed ?Last Taken ?Type cyanocobalamin (vitamin B-12) 1,000 mcg PO DAILY 08/2003/04/25 Unknown History 1,000 mcg tablet (Vitamin B-12) calcium 600 mg (as 1 tab PO DAILY 08/21/2402/12 Unknown History carbonate)-vitamin D3 5 mcg (200 unit) tablet clopidogrel 75 mg tablet 75 mg PO DAILY 02/19/2502/12 Unknown History silver sulfadiazine 1 % topical 1 appl topical DAILY 0 02/19/25 03/04/25 Unknown History cream acetaminophen 325 mg tablet 650 mg PO Q4H PRN Fever/Pa in 03/04/25 03/04/25 Unknown History (Tylenol) acetaminophen 650 mg rectal 650 mg PA Q4H PRN Pain/Fev er 03/04/25 03/04/25 Unknown History suppository atorvastatin 40 mg tablet 40 mg PO BEDTIME 03/04/25 Unknown History bisacodyl 10 mg rectal suppository 10 mg PA DAILY PRN Constipation 03/04/25 03/04/25 Unknown History hydrochlorothiazide 12.5 mg tablet 12.5 mg PO DAILY 03/04/25 Unknown History magnesium hydroxide 2,400 mg/10 mL 30 ml PO DAILY PRN Constipation 03/04/25 03/04/25 Unknown History oral suspension (Milk Of Magnesia Concentrated) naloxone 0.4 mg/mL injection 0.4 mg subcut Q3M PRN Opi oid 03/04/25 03/04/25 Unknown History solution Overdose sodium phosphates 19 gram-7 118 ml PA DAILY PRN Consti pation 03/04/25 03/04/25 Unknown History gram/118 mL enema (Fleet Enema) tamsulosin 0.4 mg capsule 0.4 mg PO BEDTIME 03/04/25 0 03/04/25 Unknown History vitamin E acetate 134 mg (200 134 mg PO DAILY 03/04/25 03/04/25 Unknown History unit) capsule Physical Exam 2 Vital Signs and Narrative: Vital Signs: Last Vital Signs Pulse 60 03/04/25 12:02 Resp 15 03/04/25 12:02 BP 148/61 H 03/04/25 12:02 Pulse Ox 94 03/04/25 12:02 O2 Del Method Room Air 03/04/25 12:02 Oxygen Flow Rate 5 03/04/25 11:08 BMI result Body Mass Index 21.3 Const: Other: frail, elderly male resting in bed comfortably says he is okay General: alert and awake Nutritional Appearance: thin Resp: Effort & Inspection: normal respiratory effort, able to speak in complete sentences, no respiratory distress and no use of accessory muscles A uscultation: clear to auscultation bilaterally Cardio: Rate: regular rate GI: Inspection: No distended Palpation (GI): Soft to palpation : Other: heck draining clear yellow urine Neuro: Other: able to follow commands; grossly nonfocal General: moves all extremities Results Labs 03/04/25 11:24 03/04/25 11:24 Labs: Laboratory Results - last 24 hr 03/04/25 03/04/25 03/04/25 11:24 11:29 11:35 MCV 87.7 MCH 30.0 MCHC 34.2 RDW 15.1 Plt Count 294 D MPV 10.3 Immature Gran % (Auto) 0.7 H Neut % (Auto) 58.7 Lymph % (Auto) 23.0 [place] % (Auto) 12.6 H Eos % (Auto) 4.4 H Baso % (Auto) 0.6 Lymph # (Auto) 1.6 [place] # (Auto) 0.9 Eos # (Auto) 0.3 Baso # (Auto) 0.0 Abs Immat Gran (auto) 0.05 H Absolute Neuts (auto) 4.0 Absolute Nucleated RBC 0.000 Nucleated RBC % (auto) 0.0 PT 15.5 H INR 1.4 H VBG pH 7.54 H VBG pCO2 29 VBG pO2 128 VBG HCO3 25 VBG O2 Saturation 99.0 VBG Base Excess 3.2 Anion Gap 10 L Estim Creat Clear Calc 42.3 Estimated GFR > 60 Random Glucose 90 Lactic Acid 1.4 Calcium 8.5 Total Bilirubin 0.2 Direct Bilirubin < 0.2 AST 38 H ALT 21 Alkaline Phosphatase 82 Ammonia 23 Troponin I High Sens 5.9 D NT-Pro-B Natriuret Pep 614.6 H Total Protein 6.1 L Albumin 3.0 L Lipase 42 Urine Color Yellow Urine Appearance Clear Urine pH 7.5 Ur Specific [place] 1.015 Urine Protein Negative Urine Glucose (UA) Negative Urine Ketones Negative Urine Blood Small (1+) H Urine Nitrite Negative Ur Leukocyte Esterase Trace H Urine RBC >20 H Urine WBC 0-5 Ur Squamous Epith Cells 0-2 Urine Bacteria None Seen Hyaline Casts 0-2 Urine Osmolality 456 Ur Random Sodium 94.0 Ur Random Potassium 43.2 Ur Random Chloride 84.0 Influenza Type A (PCR) NEGATIVE Influenza Type B (PCR) NEGATIVE RSV RNA Qual (PCR) NEGATIVE SARS-CoV-2 RNA (RT-PCR) NEGATIVE Imaging Radiologist's Impressions: Impressions Chest X-Ray 03/04/25 12:05 IMPRESSION: Low lung volumes. Probable small bilateral pleural effusions. Underlying atelectasis or pneumonia at the right lung base is not excluded. Electronically signed by: Luis Manuel Marquez MD 03/04/2025 12:12 PM EDT RP Head CT 03/04/25 12:46 IMPRESSION: No acute intracranial abnormality. Electronically signed by: Luis Manuel Marquez MD 03/04/2025 01:10 PM EDT RP Assessment and Plan (1) Episode of unresponsiveness: Status: Acute (2) Acute hyponatremia: Status: Acute Plan This is an 89-year-old male with history of phimosis, left inguinal hernia, TIA, hypertension, hyperlipidemia who was sent to the emergency department from [facility] due to period of unresponsiveness Period of Unresponsiveness Length of unresponsiveness unclear. Currently patient is awake, alert Brain CT negative, no focal neurological deficits but possible facial droop noted at facility ekg, trop ok ua negative for infection neuro checks, tele monitoring check lipids; cta head/neck continue plavix and statin will attempt orthostatic bp Hyponatremia likely due to HCTZ, will stop trend BMP Normocytic anemia H/H at baseline CAD continue plavix HTN hold HCTZ for hyponatremia BPH continue flomax, finasteride HLD continue statin dvt ppx - mechanical devices code status Quality Stroke Does the patient have a stroke diagnosis?: No VTE Prior VTE?: No VTE Risk Level:: Medical - moderate - high VTE Device Contraindication: N/A - Device Ordered VTE Drug Contraindication: Treatment Not Indicated
--- NOTE | 2025-03-04 15:38 | PM.NEUROCN ---
History of Present Illness Data of Consult Service Date: 03/04/25 Primary Care Provider: Regis Wahl MD [facility] Reason for consult: Encephalopathy 89 years old man who probably has underlying dementia came to hospital for an episode of unresponsiveness and lethargy. Initial evaluation revealed serum sodium of 128. He was being treated in emergency room. There was no clear indication of any seizure-like episode. He had significant difficulty hearing and communicating with him was difficult. Review of Systems Review of Systems: No obvious cold or flu-like illness PMFSH Past Medical History Medical History Chronic anemia Inguinal hernia Calcified mesenteric mass Left inguinal hernia Abnormal CT scan Inguinal hernia with strangulation TIA (transient ischemic attack) Hypercholesterolemia Hypertension Surgical History Surgical History History of right inguinal hernia repair Social History Social History Household Members: Spouse Housing: House Housing Other:: From [facility] Do you presently have visiting nurse or other home services: Yes ([employer]) Unable to assess alcohol history related to: Unknown Alcohol intake: former Patient Tobacco Use Status: Never used Tobacco Smoked in Last 30 Days: No e-Cigarette/Vaping Use: Never Used Second Hand Smoke Exposure: No Use of substances other than those prescribed or required for medical reasons: No Advance Directives: Yes Advance Directives on File: Yes Advance Directives Date on File: 09/17/22 Do you have a plan to hurt others: No Plan service: Yes Current occupational status: retired [employer] Allergies Allergy/AdvReac Type Severity Reaction Status Date / Time No Known Allergies (No Known Allergy Verified 03/04/25 11:11 Allergies*) Active Medications: Current Medications Acetaminophen (Acetaminophen 325 Mg Tablet) 650 mg PO Q6H PRN PRN Reason: Pain, Mild 1-3,fever,headache Calcium Carbonate (Calcium Carbonate 750 Mg Tab.Chew) 750 mg PO Q4H PRN PRN Reason: Heartburn Sodium Chloride (Ns) 1,000 mls @ 50 mls/hr IVCONT .Q20H FERNANDO Last Admin: 03/04/25 12:02 Dose: 50 mls/hr Magnesium Hydroxide (Milk Of Magnesia 30 Ml Oral.Susp) 30 ml PO DAILY PRN PRN Reason: Constipation Melatonin (Melatonin 3 Mg Tablet) 6 mg PO BEDTIME PRN PRN Reason: Insomnia Sodium Chloride (0.9 % Sodium Chloride Flush 3 Ml Syringe) 3 ml IVFLUSH QSHIFT [facility] Last Admin: 03/04/25 15:09 Dose: Not Given Home Medications ?Medication ?Instructions ?Recorded ?Confirmed ?Last Taken ?Type atorvastatin 80 mg tablet 40 mg PO BEDTIME 08/18/23 02/19/25 Unknown History cyanocobalamin (vitamin B-12) 1,000 mcg PO DAILY 08/20/24 02/19/25 Unknown History 1,000 mcg tablet (Vitamin B-12) hydrochlorothiazide 25 mg tablet 12.5 mg PO DAILY 08/20/24 02/19/25 Unknown History calcium 600 mg (as 1 tab PO DAILY 08/21/24 02/19/25 Unknown History carbonate)-vitamin D3 5 mcg (200 unit) tablet clopidogrel 75 mg tablet 75 mg PO DAILY 02/19/25 02/19/25 Unknown History silver sulfadiazine 1 % topical 1 appl topical MOWEFR 02/19/25 02/19/25 Unknown History cream vitamin E (dl, acetate) 45 mg (100 45 mg PO DAILY 02/19/25 02/19/25 Unknown History unit) capsule Physical Exam Vital Signs: Vital Signs: Last Vital Signs Pulse 60 03/04/25 12:02 Resp 15 03/04/25 12:02 BP 148/61 H 03/04/25 12:02 Pulse Ox 94 03/04/25 12:02 O2 Del Method Room Air 03/04/25 12:02 Oxygen Flow Rate 5 03/04/25 11:08 BMI result Body Mass Index 21.3 Neuro: Other: Significant deafness resulting in significant problem with communication. He made eye contact and followed one-step commands. Face was symmetrical. Speech was soft. He was moving his extremities. Plantars were equivocal. Deep tendon reflexes were trace to absent. Results Labs 03/04/25 11:24 03/04/25 11:24 Labs: Short CBC 03/04/25 Range/Units 11:24 WBC 6.8 (4.8-10.8) X10*3/uL Hgb 8.3 L (14.0-18.0) g/dl Hct 24.3 L (42.0-52.0) % Plt Count 294 D (160-400) X10*3/uL BMP 03/04/25 11:24 Sodium 128 L Potassium 4.4 Chloride 99 Carbon Dioxide 23 BUN 20 H Creatinine 1.15 Calcium 8.5 Liver Function 03/04/25 Range/Units 11:24 Total Bilirubin 0.2 (0.0-1.0) mg/dL Direct Bilirubin < 0.2 (0.0-0.5) mg/dL AST 38 H (5-37) U/L ALT 21 (0-40) U/L Alkaline Phosphatase 82 (39-117) U/L Albumin 3.0 L (3.5-5.0) g/dL Urine 03/04/25 Range/Units 11:35 Urine Color Yellow Urine Appearance Clear Urine pH 7.5 (5.0-9.0) Ur Specific [place] 1.015 (1.005-1.025) Urine Protein Negative (Neg-Trace) mg/dL Urine Glucose (UA) Negative (Negative) mg/dL Head CT revealed [id number] diffuse cerebral atrophy Assessment and Plan (1) Episode of unresponsiveness: Status: Acute 89 years old man who was brought from a [facility] with complain of unresponsiveness/lethargy. His serum sodium was 128. He probably has underlying Alzheimer or similar type of dementia. Because of the nature of his presentation, an EEG is recommended. Otherwise slow correction of serum sodium is recommended. Procedures Date of Service Date of Service: 03/04/25
--- NOTE | 2025-03-04 16:07 | PHA.MEDREC ---
Addendum entered by Kathleen Hendrix RPh 03/04/25 16:14: Reviewed by [facility] Original Note: Pharmacy Consult ? Medication Reconciliation Pharmacy has completed the medication reconciliation. Utilized list from [facility] to confirm med rec.
[2025-03-04 16:10] LABS: Osmolality, Serum 272 mosm/kg (281-305)
[2025-03-04] MEDS: iohexoL 350 MG/ML 100 ML INFUS..BTL 70 ML IV (16:58)
[2025-03-04 17:55] VITALS: BP 146/65; PULSE 66; RESP 18; TEMP 36.6; O2SAT 97
[2025-03-04 18:41] LABS: Sodium 128 mmol/L (135-145)
--- NOTE | 2025-03-04 19:58 | PC.NURSE ---
pt came in with heck, urine out put is 1000.
[2025-03-04 20:14] VITALS: BP 135/65; PULSE 65; RESP 17; TEMP 36.6; O2SAT 96
--- NOTE | 2025-03-04 20:57 | PC.NURSE ---
Took over from Rambo Abdul at 19:00, pt repositioned, Griffiths emptied and medicated per aug.
[2025-03-05] VITALS (14 sets, daily range): BP systolic 85–150; BP diastolic 35–71; PULSE 63–83; RESP 14–18; TEMP 36.2–36.8; O2SAT 87–100; BMI 19.6
--- NOTE | 2025-03-05 | EEG_ITS ---
This is a 16 channel EEG with an EKG lead. Patient is reported awake during the tracing. Background EEG rhythm is low amplitude fast with no obvious asymmetry or paroxysmal tendency. Photic stimulation does not produce any significant abnormality. Hyperventilation is not performed. Cardiac lead does not reveal any significant abnormality. No sharp wave spikes or paroxysmal tendency noted. Impression: No significant abnormality noted on this EEG. MTDD
--- NOTE | 2025-03-05 03:08 | PC.NURSE ---
neuro checks completed, pt able to answer questions appropriate, swollow evaluation completed, pt able to drink with no sign of aspirations.
[2025-03-05] MEDS: 0.9 % Sodium Chloride Flush 3 ML SYRINGE IVFLUSH ×4 (04:13→21:54)
[2025-03-05 04:48] LABS: Hematocrit 24.8 % (42.0-52.0); Hemoglobin 8.2 g/dl (14.0-18.0); Mean Corpuscular Volume 87.3 fL (80.0-98.0); Platelet Count 279 X10*3/uL (160-400); Red Blood Count 2.84 X10*6/uL (4.60-5.80)
[2025-03-05 05:02] LABS: Calcium 8.7 mg/dL (8.4-10.2); Chloride 99 mmol/L (96-108); Potassium 4.0 mmol/L (3.3-5.1); Sodium 129 mmol/L (135-145)
--- NOTE | 2025-03-05 08:27 | PC.NURSE ---
tech attempted to obtain orthostatic VS. while obtaining VS - PT also attempted to have PT evaluation completed. while changing position from supine to sitting to standing, pt noted to become hypoxic at 88% on RA as well as hypotensive. see vitals in worklist for further details. pt assisted back into bed/placed on 2L via NC. pt did not tolerate transition well - titrated to 4L via NC. no apparent respiratory distress noted - no sob/wob noted. respirations even/unlabored. hospitalist notified/aware. plan of care ongoing. call last placed within reach.
[2025-03-05] MEDS: Calcium + Vitamin D 250 MG TABLET 500 MG PO (09:19)
[2025-03-05] MEDS: Silver Sulfadiazine 1 % Cream 20 GM TUBE 1 APPL TOPICAL (09:20)
--- NOTE | 2025-03-05 09:24 | PC.NURSE ---
pt titrated to 2L via NC d/t no apparent respiratory distress/sob/wob. pt tolerating transition well. all vss and up to date. nsr on the dbas. bedside nursing swallow evaluation performed prior to PO medication administration - pt passed nursing swallow w/o difficulty. medication administered per provider order. swallows pills whole w/ water w/o difficulty. pt otherwise pending bed assignment. plan of care ongoing. call last placed within reach.
--- NOTE | 2025-03-05 11:25 | PM.CNNEP ---
History of Present Illness Reason for Consult Consult date: 03/05/25 Chief Complaint Chief complaint: AMS Hyponatremia History of Present Illness Narrative: 89 y/o male with HTN, HLD, TIA, CAD here from rehab/nursing facility with syncopal episode during PT. Nephrology consulted for hyponatremia sodium 128 yesterday, 129 today patient was on hctz at home/rehab, which has since been discontinued urine sodium 94, urine osm 456 patient denies shortness of breath, pain, or other complaints. 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) Unable to assess alcohol history related to: Unknown Alcohol intake: former Patient Tobacco Use Status: Never used Tobacco Smoked in Last 30 Days: No e-Cigarette/Vaping Use: Never Used Second Hand Smoke Exposure: No Use of substances other than those prescribed or required for medical reasons: No Advance Directives: Yes Advance Directives on File: Yes Advance Directives Date on File: 09/17/22 Do you have a plan to hurt others: No Plan service: Yes Current occupational status: retired [employer] Allergies Allergy/AdvReac Type Severity Reaction Status Date / Time No Known Allergies (No Known Allergy Verified 03/04/25 11:11 Allergies*) Active Medications: Current Medications Acetaminophen (Acetaminophen 325 Mg Tablet) 650 mg PO Q6H PRN PRN Reason: Pain, Mild 1-3,fever,headache Atorvastatin Calcium (Atorvastatin Calcium 40 Mg Tablet) 40 mg PO BEDTIME [facility] Last Admin: 03/04/25 20:54 Dose: 40 mg Calcium Carbonate (Calcium Carbonate 750 Mg Tab.Chew) 750 mg PO Q4H PRN PRN Reason: Heartburn Calcium Carbonate/Cholecalciferol (Calcium + Vitamin D 250 Mg Tablet) 500 mg PO DAILY [facility] Last Admin: 03/05/25 09:19 Dose: 500 mg Clopidogrel Bisulfate (Clopidogrel Bisulfate 75 Mg Tablet) 75 mg PO DAILY [facility] Last Admin: 03/05/25 09:20 Dose: 75 mg Cyanocobalamin (Cyanocobalamin (Vitamin B-12) 1,000 Mcg Tablet) 1,000 mcg PO DAILY [facility] Last Admin: 03/05/25 09:19 Dose: 1,000 mcg Finasteride (Finasteride 5 Mg Tablet) 5 mg PO DAILY [facility] Last Admin: 03/05/25 09:20 Dose: 5 mg Magnesium Hydroxide (Milk Of Magnesia 30 Ml Oral.Susp) 30 ml PO DAILY PRN PRN Reason: Constipation Melatonin (Melatonin 3 Mg Tablet) 6 mg PO BEDTIME PRN PRN Reason: Insomnia Silver Sulfadiazine (Silver Sulfadiazine 1 % Cream 20 Gm Tube) 1 appl TOPICAL DAILY [facility] Last Admin: 03/05/25 09:20 Dose: 1 appl Sodium Chloride (0.9 % Sodium Chloride Flush 3 Ml Syringe) 3 ml IVFLUSH QSHIFT [facility] Last Admin: 03/05/25 07:09 Dose: 3 ml Tamsulosin HCl (Tamsulosin Hcl 0.4 Mg Capsule) 0.4 mg PO BEDTIME [facility] Last Admin: 03/04/25 20:54 Dose: 0.4 mg Home Medications ?Medication ?Instructions ?Recorded ?Confirmed ?Last Taken ?Type cyanocobalamin (vitamin B-12) 1,000 mcg PO DAILY 08/20/24 03/04/25 Unknown History 1,000 mcg tablet (Vitamin B-12) calcium 600 mg (as 1 tab PO DAILY 08/21/24 03/04/25 Unknown History carbonate)-vitamin D3 5 mcg (200 unit) tablet clopidogrel 75 mg tablet 75 mg PO DAILY 02/19/25 03/04/25 Unknown History silver sulfadiazine 1 % topical 1 appl topical DAILY 02/19/25 03/04/25 Unknown History cream acetaminophen 325 mg tablet 650 mg PO Q4H PRN Fever/Pain 03/04/25 03/04/25 Unknown History (Tylenol) acetaminophen 650 mg rectal 650 mg FL Q4H PRN Pain/Fever 03/04/25 03/04/25 Unknown History suppository atorvastatin 40 mg tablet 40 mg PO BEDTIME 03/04/25 03/04/25 Unknown History bisacodyl 10 mg rectal suppository 10 mg FL DAILY PRN Constipation 03/04/25 03/04/25 Unknown History hydrochlorothiazide 12.5 mg tablet 12.5 mg PO DAILY 03/04/25 03/04/25 Unknown History magnesium hydroxide 2,400 mg/10 mL 30 ml PO DAILY PRN Constipation 03/04/25 03/04/25 Unknown History oral suspension (Milk Of Magnesia Concentrated) naloxone 0.4 mg/mL injection 0.4 mg subcut Q3M PRN Opioid 03/04/25 03/04/25 Unknown History solution Overdose sodium phosphates 19 gram-7 118 ml FL DAILY PRN Constipation 03/04/25 03/04/25 Unknown History gram/118 mL enema (Fleet Enema) tamsulosin 0.4 mg capsule 0.4 mg PO BEDTIME 03/04/25 03/04/25 Unknown History vitamin E acetate 134 mg (200 134 mg PO DAILY 03/04/25 03/04/25 Unknown History unit) capsule Physical Exam Vital Signs: Last Vital Signs Temp 97.6 F 03/05/25 09:18 Pulse 65 03/05/25 09:18 Resp 14 03/05/25 09:18 BP 150/71 H 03/05/25 09:18 Pulse Ox 94 03/05/25 09:24 O2 Del Method Nasal Cannula 03/05/25 09:24 O2 Flow Rate 2 03/05/25 09:24 Oxygen Flow Rate 5 03/04/25 11:08 BMI result Body Mass Index 21.3 Const General: no acute distress, alert and awake Resp Effort & Inspection: normal respiratory effort and able to speak in complete sentences Auscultation: clear to auscultation bilaterally Cardio Rate: regular rate Rhythm: regular rhythm Heart sounds: S1 normal heart sound present and S2 normal heart sound present GI Palpation (GI): Soft to palpation and nontender Extrem General: No edema Results Lab Results 03/05/25 04:41 03/05/25 04:41 Lab results: Chemistry 03/04/25 03/04/25 03/05/25 11:24 18:30 04:41 Sodium 128 L 128 L 129 L Potassium 4.4 4.0 Carbon Dioxide 25 BUN 20 H 17 H Creatinine 1.15 1.03 Calcium 8.5 8.7 Hematology 03/04/25 03/05/25 11:24 04:41 WBC 6.8 6.2 Hgb 8.3 L 8.2 L Plt Count 294 D 279 Urinalysis 03/04/25 11:35 Urine Color Yellow Urine Appearance Clear Urine pH 7.5 Ur Specific [place] 1.015 Urine Protein Negative Urine Glucose (UA) Negative Urine Ketones Negative Urine Blood Small (1+) H Urine Nitrite Negative Ur Leukocyte Esterase Trace H Urine RBC >20 H Urine WBC 0-5 Ur Squamous Epith Cells 0-2 Hyaline Casts 0-2 Urine Studies 03/04/25 11:35 Urine Osmolality 456 Assessment and Plan (1) Hyponatremia: Status: Acute Plan Hyponatremia likely secondary to excess salt loss in the urine from hctz agree to discontinue hctz, serum sodium has improved slightly since discontinuation no need for fluid restriction at this time recommend re-checking electrolytes tomorrow a.m. recommend avoiding nephrotoxins continue supportive care Discussed with Dr Muro. Procedures Date of Service Date of Service: 03/05/25
--- NOTE | 2025-03-05 12:15 | MHC.CM.PN ---
PT ADMITTED WITH AMS, CM CALLED PTS SISTER/PRIMARY CONTACT, ANKIT PAN [phone] PT WAS LIVING WITH HIS , WHO HAS BEEN AT [facility], PRIOR TO HIS LAST ADMISSION HE WAS DISCHARGED TO [facility] AT [facility] THIS MONTH HE USES A WALKER AND HIS PCP IS AT THE [facility] HCP IS ON FILE IMM DELIVERED DCP: RETURN TO STR AT [facility], HE IS A BED HOLD BLS TRANSPORT
--- NOTE | 2025-03-05 13:39 | HO.PM.IMPN ---
Subjective Subjective Date of Service: 03/05/25 Physical Exam Exam: Exam: Appearing in no acute distress Very hard of hearing lung sounds are clear to auscultation heart regular rate rhythm, clear S1, S2 positive bowel sounds, abdomen is soft, nontender neuro patient is alert x3, no focal deficits Vital Signs: Vital Signs: Last Vital Signs Temp 97.6 F 03/05/25 09:18 Pulse 63 03/05/25 12:47 Resp 14 03/05/25 12:47 BP 105/46 L 03/05/25 12:47 Pulse Ox 99 03/05/25 12:47 O2 Del Method Nasal Cannula 03/05/25 12:47 O2 Flow Rate 2 03/05/25 12:47 Oxygen Flow Rate 5 03/04/25 11:08 BMI result Body Mass Index 21.3 Objective Data Active Medications Acetaminophen (Acetaminophen 325 Mg Tablet) 650 mg PO Q6H PRN PRN Reason: Pain, Mild 1-3,fever,headache Atorvastatin Calcium (Atorvastatin Calcium 40 Mg Tablet) 40 mg PO BEDTIME [facility] Last Admin: 03/04/25 20:54 Dose: 40 mg Documented By: LUIS M Calcium Carbonate (Calcium Carbonate 750 Mg Tab.Chew) 750 mg PO Q4H PRN PRN Reason: Heartburn Calcium Carbonate/Cholecalciferol (Calcium + Vitamin D 250 Mg Tablet) 500 mg PO DAILY [facility] Last Admin: 03/05/25 09:19 Dose: 500 mg Documented By: DENZEL Clopidogrel Bisulfate (Clopidogrel Bisulfate 75 Mg Tablet) 75 mg PO DAILY [facility] Last Admin: 03/05/25 09:20 Dose: 75 mg Documented By: DENZEL Cyanocobalamin (Cyanocobalamin (Vitamin B-12) 1,000 Mcg Tablet) 1,000 mcg PO DAILY [facility] Last Admin: 03/05/25 09:19 Dose: 1,000 mcg Documented By: DENZEL Finasteride (Finasteride 5 Mg Tablet) 5 mg PO DAILY [facility] Last Admin: 03/05/25 09:20 Dose: 5 mg Documented By: DENZEL Magnesium Hydroxide (Milk Of Magnesia 30 Ml Oral.Susp) 30 ml PO DAILY PRN PRN Reason: Constipation Melatonin (Melatonin 3 Mg Tablet) 6 mg PO BEDTIME PRN PRN Reason: Insomnia Silver Sulfadiazine (Silver Sulfadiazine 1 % Cream 20 Gm Tube) 1 appl TOPICAL DAILY [facility] Last Admin: 03/05/25 09:20 Dose: 1 appl Documented By: DENZEL Sodium Chloride (0.9 % Sodium Chloride Flush 3 Ml Syringe) 3 ml IVFLUSH QSHIFT [facility] Last Admin: 03/05/25 07:09 Dose: 3 ml Documented By: DENZEL Tamsulosin HCl (Tamsulosin Hcl 0.4 Mg Capsule) 0.4 mg PO BEDTIME [facility] Last Admin: 03/04/25 20:54 Dose: 0.4 mg Documented By: LUIS M Labs 03/05/25 04:41 03/05/25 04:41 Labs: Laboratory Results - last 24 hr 03/04/25 03/05/25 15:52 04:41 MCV 87.3 MCH 28.9 MCHC 33.1 RDW 15.2 Plt Count 279 MPV 9.7 Immature Gran % (Auto) 0.5 H Neut % (Auto) 68.9 Lymph % (Auto) 14.3 L [place] % (Auto) 11.4 H Eos % (Auto) 4.2 H Baso % (Auto) 0.7 Lymph # (Auto) 0.9 L [place] # (Auto) 0.7 Eos # (Auto) 0.3 Baso # (Auto) 0.0 Abs Immat Gran (auto) 0.03 Absolute Neuts (auto) 4.2 Absolute Nucleated RBC 0.000 Nucleated RBC % (auto) 0.0 Anion Gap 9 L Estim Creat Clear Calc 47.2 Estimated GFR > 60 Random Glucose 91 Osmolality 272 L Calcium 8.7 Triglycerides 38 Cholesterol 141 LDL Cholesterol, Calc 88 HDL Cholesterol 46 Assessment and Plan (1) Hyponatremia: Status: Acute Plan 89-year-old male with history of phimosis, left inguinal hernia, TIA, hypertension, hyperlipidemia who was sent to the emergency department from [facility] due to period of unresponsiveness Period of Unresponsiveness with likely orthostatic hypotension Length of unresponsiveness unclear. 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
--- NOTE | 2025-03-05 14:15 | PC.NURSE ---
pt transferred to EEG at this time. plan of care ongoing.
[2025-03-05 15:41] LABS: Sodium 129 mmol/L (135-145)
[2025-03-06] VITALS (9 sets, daily range): BP systolic 78–148; BP diastolic 41–71; PULSE 66–76; RESP 14–16; TEMP 35.9–37.2; O2SAT 88–99
[2025-03-06 07:01] LABS: Anion Gap 8 (12-20); Blood Urea Nitrogen 18 mg/dL (9-16); Calcium 8.9 mg/dL (8.4-10.2); Carbon Dioxide 27 mmol/L (22-29); Chloride 98 mmol/L (96-108); Creatinine Clr Calc Pharmacy 41.4; Estimated Glomerular Filt Rate > 60; Potassium 4.2 mmol/L (3.3-5.1); Sodium 129 mmol/L (135-145)
[2025-03-06] MEDS: 0.9 % Sodium Chloride Flush 3 ML SYRINGE IVFLUSH ×3 (09:43→20:53)
[2025-03-06] MEDS: Calcium + Vitamin D 250 MG TABLET 500 MG PO (09:43)
--- NOTE | 2025-03-06 10:11 | HO.WOUND ---
Wound Consult: Initial 89 yr old male admitted [place] [facility] [place]- See progress notes and H&P for detailed history. Wound consult placed for bilateral legs and coccyx. Patient agreeable to assessment and photo documentation. 02/20/25 last admission noted for DTI and scar tissue 03/06/25 Coccyx Etiology: resurfaced DTI currently blanchable and small epidermal resurfacing noted Measurements: 6cm x 4cm x 0.1cm Wound Bed: red pink tissue Drainage / Odor: none Edges: ? irregular Kat wound: ? No Induration, Fluctuance or Warmth noted Pain: none Goals of Treatment: ? offloading, pressure redistribution with foam dressing Deep tissue pressure injury: Intact or non intact skin with localized are of non-blanchable deep red, maroon, purple discoloration OR epidermal separation revealing a dark wound bed OR blood filled blister. Pain and temperature changes often precede color changes, can show 48-72 hours later. May resolve without causing ulceration or full thickness skin loss, or it may evolve to reveal actual extent of tissue injury Bilateral Heels noted for redness - remain blanchable and intact at this time. Preventative foams recommended and off loaded with pillows and heels. 03/06/25 Bilateral legs Etiology: venous stasis Present on Admission Wound Bed: dry scaly skin with areas of superficial moist pink Drainage / Odor: scant serous, no odor Edges: ? irregular Kat wound: ? No Induration, Fluctuance or Warmth noted Pain: none Goals of Treatment: ? moist wound healing with xeroform of note, left anterior ankle with linear area of nonblanching deep red discoloration, ? DTI vs abrasion, unclear etiology as nothing in contact with skin at time of assessment, no a pressure point. leave open to air. Recommendations: 1. Turn and Reposition every 2 hours and as needed for patient comfort. Use pillows or wedges to support off loading positions. 2. Off Load all bony prominences with use of pillows and heel boots if needed. Apply Preventative foams where needed. 3. Monitor for incontinence and moisture control, use barrier creams when needed for prevention and treatment. 4. Provide adequate and supplemental nutrition. 5. Order or Continue low air loss mattress. 6. When applicable maintain blood glucose levels per Providers order. Bilateral lower legs: cleanse with saline, pat dry, apply xeroform, cover with ABD, wrap with rolled gauze, change daily and PRN. Coccyx: Off Load Pressure with Q2 hr turns and use of pillows - Routine cleansing. Apply skin prep allow to dry. Cover with foam dressing to aid in off loading and protection from friction. Change every 3 days and PRN. Bilateral heels: Elevate heels off of bed surface with pillows. Float heels off of pillows. Apply skin prep allow to dry. Apply heel foam dressings, peel back and assess Q shift and change every 5-7 days and PRN. Re-consult wound care Nurse for wound deterioration or wound changes.
--- NOTE | 2025-03-06 10:29 | MHC.CM.PN ---
Patient is not yet medically cleared for dc (checking Orthostatics); PT is recommending STR and CM will continue to follow.
--- NOTE | 2025-03-06 11:24 | P.PNNP_ITS ---
Subjective Subjective Date of Service: 03/06/25 Interval history: Here after syncopal episode in rehab facility. Following for hyponatremia. was on hctz, this was discontinued. serum sodium 129 this a.m. (129 yesterday). urine sodium 94, urine osm 456 Physical Exam 2 Vital Signs: Vital Signs: Last Vital Signs Temp 98.4 F 03/06/25 07:18 Pulse 74 03/06/25 08:30 Resp 16 03/06/25 07:18 BP 101/56 L 03/06/25 08:30 Pulse Ox 96 03/06/25 07:18 O2 Del Method Nasal Cannula 03/06/25 07:18 O2 Flow Rate 2 03/06/25 07:18 Oxygen Flow Rate 5 03/04/25 11:08 BMI result Body Mass Index 19.6 Const: General: no acute distress, alert and awake Resp: Effort & Inspection: normal respiratory effort and able to speak in complete sentences Auscultation: clear to auscultation bilaterally Cardio: Rate: regular rate Rhythm: regular rhythm Heart sounds: S1 normal heart sound present and S2 normal heart sound present GI: Palpation (GI): Soft to palpation and nontender Extrem: General: No edema Objective Data Labs 03/05/25 04:41 03/06/25 06:00 Labs: Laboratory Results - last 24 hr 03/05/25 03/06/25 15:22 06:00 Sodium 129 L 129 L Potassium 4.2 Chloride 98 Carbon Dioxide 27 Anion Gap 8 L BUN 18 H Creatinine 1.08 Estim Creat Clear Calc 41.4 Estimated GFR > 60 Random Glucose 88 Calcium 8.9 Microbiology Microbiology Results: Microbiology 03/04/25 11:51 Blood - Venous Blood Culture - Preliminary No growth after 24 hours. 03/04/25 11:24 Blood - Venous Blood Culture - Preliminary No growth after 24 hours. Procedures Date of Service Date of Service: 03/06/25 Assessment & Plan Assessment and plan (1) Hyponatremia: Status: Acute Plan Hyponatremia likely secondary to excess salt loss in the urine from hctz. 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 agree to discontinue hctz, serum sodium has improved slightly since discontinuation should add 1.5L/24 hour fluid restriction. recommend avoiding nephrotoxins continue supportive care Discussed with Dr Cole. Time Spent With Patient Time: Total time managing care of this patient today ____ minutes. Progress Note: Quality Stroke Does the patient have a stroke diagnosis?: No
[2025-03-07] VITALS (8 sets, daily range): BP systolic 77–142; BP diastolic 46–71; PULSE 61–79; RESP 16–17; TEMP 36.2–36.7; O2SAT 92–98
[2025-03-07 10:04] LABS: Alanine Aminotransferase 18 U/L (0-40); Albumin Level 3.2 g/dL (3.5-5.0); Alkaline Phosphatase 88 U/L (39-117); Anion Gap 8 (12-20); Aspartate Amino Transferase 29 U/L (5-37); Blood Urea Nitrogen 22 mg/dL (9-16); Calcium 8.9 mg/dL (8.4-10.2); Carbon Dioxide 27 mmol/L (22-29); Chloride 101 mmol/L (96-108); Creatinine Clr Calc Pharmacy 36.4; Estimated Glomerular Filt Rate 56; Potassium 4.2 mmol/L (3.3-5.1); Sodium 132 mmol/L (135-145); Total Protein 5.6 g/dL (6.5-8.0)
[2025-03-07] MEDS: 0.9 % Sodium Chloride Flush 3 ML SYRINGE IVFLUSH ×2 (10:45→21:40)
[2025-03-07] MEDS: Calcium + Vitamin D 250 MG TABLET 500 MG PO (10:45)
--- NOTE | 2025-03-07 13:01 | P.PNNP_ITS ---
Subjective Subjective Date of Service: 03/07/25 Interval history: Events noted. More alert. Physical Exam 2 Vital Signs: Vital Signs: Last Vital Signs Temp 97.3 F 03/07/25 11:54 Pulse 71 03/07/25 11:54 Resp 16 03/07/25 11:54 BP 102/59 L 03/07/25 11:54 Pulse Ox 96 03/07/25 11:54 O2 Del Method Room Air 03/07/25 11:54 O2 Flow Rate 2 03/06/25 07:18 Oxygen Flow Rate 5 03/04/25 11:08 BMI result Body Mass Index 19.6 Comfortable Neck supple no JVD. Lungs entry equal no rales. Heart S1-S2 heard no gallop or rub. Abdomen soft nontender. Neuro alert awake oriented. No asterixis. Extremities no edema. Objective Data Labs 03/05/25 04:41 03/07/25 08:35 Labs: Laboratory Results - last 24 hr 03/07/25 08:35 Hold Purple Top SEE NOTE Sodium 132 L Potassium 4.2 Chloride 101 Carbon Dioxide 27 Anion Gap 8 L BUN 22 H Creatinine 1.23 Estim Creat Clear Calc 36.4 Estimated GFR 56 Random Glucose 84 Calcium 8.9 Total Bilirubin 0.3 AST 29 ALT 18 Alkaline Phosphatase 88 Total Protein 5.6 L Albumin 3.2 L Microbiology Microbiology Results: Microbiology 03/04/25 11:51 Blood - Venous Blood Culture - Preliminary No growth after 48 hours. 03/04/25 11:24 Blood - Venous Blood Culture - Preliminary No growth after 48 hours. Procedures Date of Service Date of Service: 03/07/25 Assessment & Plan Assessment and plan (1) Hyponatremia: Status: Acute Plan Hyponatremia in the setting of hctz leading to decreased free water clearance agree to discontinue hctz, Keep on p.o. free water restriction Goal serum sodium more than 130 millimoles. Renal function stable. Time Spent With Patient Time: Total time managing care of this patient today ____ minutes. Progress Note: Quality Stroke Does the patient have a stroke diagnosis?: No
--- NOTE | 2025-03-07 15:27 | HO.PM.IMPN ---
Subjective Subjective Date of Service: 03/07/25 Interval History: Orthostasis persistent this a.m.. Sodium slowly resolving. Review of Systems Denies chest pain Denies shortness of breath Denies nausea vomiting diarrhea Denies fever chills Physical Exam Vital Signs: Vital Signs: Last Vital Signs Temp 97.3 F 03/07/25 11:54 Pulse 71 03/07/25 11:54 Resp 16 03/07/25 11:54 BP 102/59 L 03/07/25 11:54 Pulse Ox 96 03/07/25 11:54 O2 Del Method Room Air 03/07/25 11:54 O2 Flow Rate 2 03/06/25 07:18 Oxygen Flow Rate 5 03/04/25 11:08 BMI result Body Mass Index 19.6 Const: Other: Awake alert no acute distress Resp: Other: Clear to auscultation bilaterally no rales rhonchi or wheezes Cardio: Other: No S4; positive S1-S2; no S3 murmurs rubs or gallops GI: Other: Soft nontender nondistended normoactive bowel sounds Extrem: Other: No edema bilaterally. Compression socks on Objective Data Active Medications Acetaminophen (Acetaminophen 325 Mg Tablet) 650 mg PO Q6H PRN PRN Reason: Pain, Mild 1-3,fever,headache Atorvastatin Calcium (Atorvastatin Calcium 40 Mg Tablet) 40 mg PO BEDTIME [facility] Last Admin: 03/06/25 20:50 Dose: 40 mg Documented By: SANCHO Calcium Carbonate (Calcium Carbonate 750 Mg Tab.Chew) 750 mg PO Q4H PRN PRN Reason: Heartburn Calcium Carbonate/Cholecalciferol (Calcium + Vitamin D 250 Mg Tablet) 500 mg PO DAILY [facility] Last Admin: 03/07/25 10:45 Dose: 500 mg Documented By: THEODORA Clopidogrel Bisulfate (Clopidogrel Bisulfate 75 Mg Tablet) 75 mg PO DAILY [facility] Last Admin: 03/07/25 10:45 Dose: 75 mg Documented By: THEODORA Cyanocobalamin (Cyanocobalamin (Vitamin B-12) 1,000 Mcg Tablet) 1,000 mcg PO DAILY [facility] Last Admin: 03/07/25 10:45 Dose: 1,000 mcg Documented By: THEODORA Finasteride (Finasteride 5 Mg Tablet) 5 mg PO DAILY [facility] Last Admin: 03/07/25 10:45 Dose: 5 mg Documented By: THEODORA Magnesium Hydroxide (Milk Of Magnesia 30 Ml Oral.Susp) 30 ml PO DAILY PRN PRN Reason: Constipation Melatonin (Melatonin 3 Mg Tablet) 6 mg PO BEDTIME PRN PRN Reason: Insomnia Silver Sulfadiazine (Silver Sulfadiazine 1 % Cream 20 Gm Tube) 1 appl TOPICAL DAILY [facility] Last Admin: 03/06/25 09:43 Dose: Not Given Documented By: CRAIG Non-Admin Reason: called pharmacy Sodium Chloride (0.9 % Sodium Chloride Flush 3 Ml Syringe) 3 ml IVFLUSH QSHIFT [facility] Last Admin: 03/07/25 10:45 Dose: 3 ml Documented By: THEODORA Tamsulosin HCl (Tamsulosin Hcl 0.4 Mg Capsule) 0.4 mg PO BEDTIME [facility] Last Admin: 03/06/25 20:50 Dose: 0.4 mg Documented By: SANCHO Labs 03/05/25 04:41 03/07/25 08:35 Labs: Laboratory Results - last 24 hr 03/07/25 08:35 Hold Purple Top SEE NOTE Anion Gap 8 L Estim Creat Clear Calc 36.4 Estimated GFR 56 Random Glucose 84 Calcium 8.9 Total Bilirubin 0.3 AST 29 ALT 18 Alkaline Phosphatase 88 Total Protein 5.6 L Albumin 3.2 L Microbiology Microbiology Results: Microbiology 03/04/25 11:51 Blood Culture - Preliminary Blood - Venous No growth after 48 hours. 03/04/25 11:24 Blood Culture - Preliminary Blood - Venous No growth after 48 hours. Assessment and Plan (1) Orthostatic hypotension: Status: Acute (2) Acute hyponatremia: Status: Acute Plan 89-year-old male with history of phimosis, left inguinal hernia, TIA, hypertension, hyperlipidemia who was sent to the emergency department from [facility] due to period of unresponsiveness 1.Orthostatic hypotension -workup thus far negative -recheck in a.m. -consider midodrine if still orthostatic 2.Hyponatremia -slowly responding to therapies -follow renals/divalents 3.CAD -stable and well compensated 4.HTN -continue to hold HCTZ -acceptable control off HCTZ mechanical devices DNR DNI Requires ongoing hospitalization to treat orthostatic hypotension with therapies and specialty consultation Quality Stroke Does the patient have a stroke diagnosis?: No VTE Prior VTE?: No VTE Risk Level:: Medical - moderate - high VTE Device Contraindication: N/A - Device Ordered VTE Drug Contraindication: Treatment Not Indicated
[2025-03-08] VITALS (7 sets, daily range): BP systolic 80–120; BP diastolic 47–81; PULSE 65–81; RESP 12–18; TEMP 36.2–36.7; O2SAT 91–98
[2025-03-08] MEDS: 0.9 % Sodium Chloride Flush 3 ML SYRINGE IVFLUSH ×3 (09:10→21:08)
[2025-03-08] MEDS: Calcium + Vitamin D 250 MG TABLET 500 MG PO (09:10)
[2025-03-08] MEDS: Silver Sulfadiazine 1 % Cream 20 GM TUBE 1 APPL TOPICAL (09:20)
--- NOTE | 2025-03-08 10:20 | MHC.CM.PN ---
Per ROUNDS discussion, Patient is not yet medically cleared for dc (persistent Orthostasis); PT is recommending STR and CM will continue to follow.
--- NOTE | 2025-03-08 15:12 | HO.PM.IMPN ---
Subjective Subjective Date of Service: 03/08/25 Interval History: Continues to be with a static. No other acute issues overnight Review of Systems Denies chest pain Denies shortness of breath Denies nausea vomiting diarrhea Denies fever chills Physical Exam Vital Signs: Vital Signs: Last Vital Signs Temp 97.2 F 03/08/25 11:22 Pulse 81 03/08/25 14:41 Resp 16 03/08/25 11:22 BP 80/47 L 03/08/25 14:41 Pulse Ox 91 L 03/08/25 14:41 O2 Del Method Room Air 03/08/25 11:22 O2 Flow Rate 2 03/06/25 07:18 Oxygen Flow Rate 5 03/04/25 11:08 BMI result Body Mass Index 19.6 Const: Other: Awake alert no acute distress Resp: Other: Clear to auscultation bilaterally no rales rhonchi or wheezes Cardio: Other: No S4; positive S1-S2; no S3 murmurs rubs or gallops GI: Other: Soft nontender nondistended normoactive bowel sounds Extrem: Other: No edema bilaterally. Compression socks on Objective Data Active Medications Acetaminophen (Acetaminophen 325 Mg Tablet) 650 mg PO Q6H PRN PRN Reason: Pain, Mild 1-3,fever,headache Atorvastatin Calcium (Atorvastatin Calcium 40 Mg Tablet) 40 mg PO BEDTIME [facility] Last Admin: 03/07/25 21:40 Dose: 40 mg Documented By: MICAH Calcium Carbonate (Calcium Carbonate 750 Mg Tab.Chew) 750 mg PO Q4H PRN PRN Reason: Heartburn Calcium Carbonate/Cholecalciferol (Calcium + Vitamin D 250 Mg Tablet) 500 mg PO DAILY [facility] Last Admin: 03/08/25 09:10 Dose: 500 mg Documented By: JODY Clopidogrel Bisulfate (Clopidogrel Bisulfate 75 Mg Tablet) 75 mg PO DAILY [facility] Last Admin: 03/08/25 09:11 Dose: 75 mg Documented By: JODY Cyanocobalamin (Cyanocobalamin (Vitamin B-12) 1,000 Mcg Tablet) 1,000 mcg PO DAILY [facility] Last Admin: 03/08/25 09:11 Dose: 1,000 mcg Documented By: JODY Finasteride (Finasteride 5 Mg Tablet) 5 mg PO DAILY [facility] Last Admin: 03/08/25 09:11 Dose: 5 mg Documented By: JODY Magnesium Hydroxide (Milk Of Magnesia 30 Ml Oral.Susp) 30 ml PO DAILY PRN PRN Reason: Constipation Melatonin (Melatonin 3 Mg Tablet) 6 mg PO BEDTIME PRN PRN Reason: Insomnia Silver Sulfadiazine (Silver Sulfadiazine 1 % Cream 20 Gm Tube) 1 appl TOPICAL DAILY [facility] Last Admin: 03/08/25 09:20 Dose: 1 appl Documented By: JODY Sodium Chloride (0.9 % Sodium Chloride Flush 3 Ml Syringe) 3 ml IVFLUSH QSHIFT [facility] Last Admin: 03/08/25 09:10 Dose: 3 ml Documented By: JODY Tamsulosin HCl (Tamsulosin Hcl 0.4 Mg Capsule) 0.4 mg PO BEDTIME [facility] Last Admin: 03/07/25 21:40 Dose: 0.4 mg Documented By: MICAH Labs 03/05/25 04:41 03/07/25 08:35 Assessment and Plan (1) Orthostatic hypotension: Status: Acute (2) Hyponatremia: Status: Acute Plan 89-year-old male with history of phimosis, left inguinal hernia, TIA, hypertension, hyperlipidemia who was sent to the emergency department from [facility] due to period of unresponsiveness 1.Orthostatic hypotension -workup thus far negative -recheck in a.m. -add midodrine TID 2.Hyponatremia -slowly responding to therapies -follow renals/divalents 3.CAD -stable and well compensated 4.HTN -continue to hold HCTZ -acceptable control off HCTZ mechanical devices DNR DNI Requires ongoing hospitalization to treat orthostatic hypotension with therapies and specialty consultation Quality Stroke Does the patient have a stroke diagnosis?: No VTE Prior VTE?: No VTE Risk Level:: Medical - moderate - high VTE Device Contraindication: N/A - Device Ordered VTE Drug Contraindication: Treatment Not Indicated
[2025-03-08 21:39] LABS: Glucose, Whole Blood 117 mg/dL (60-115)
[2025-03-09 03:36] VITALS: BP 132/66; PULSE 63; RESP 16; TEMP 36.4; O2SAT 98
[2025-03-09 06:13] LABS: MANUAL DIFF FLAG NO
[2025-03-09 06:23] LABS: Hematocrit 23.6 % (42.0-52.0); Hemoglobin 7.8 g/dl (14.0-18.0); Imm Gran Abs Auto 0.02 X10*3/uL (0.00-0.03); Imm Gran Pct Auto 0.4 % (0.0-0.4); Lymphocytes Absolute Auto 1.2 X10*3/uL (1.2-4.9); Mean Corpuscular HGB Conc 33.1 g/dl (31.0-36.0); Mean Corpuscular Hemoglobin 29.4 pg (27.0-33.0); Mean Corpuscular Volume 89.1 fL (80.0-98.0); NRBC Abs Auto 0.000 X10*3/uL (0.0-0.012); NRBC Pct Auto 0.0 /100WBC (0.0-0.2); Platelet Count 245 X10*3/uL (160-400); Red Blood Count 2.65 X10*6/uL (4.60-5.80); White Blood Count 5.1 X10*3/uL (4.8-10.8)
[2025-03-09 06:36] LABS: Alanine Aminotransferase 16 U/L (0-40); Albumin Level 3.1 g/dL (3.5-5.0); Alkaline Phosphatase 87 U/L (39-117); Anion Gap 11 (12-20); Aspartate Amino Transferase 25 U/L (5-37); Blood Urea Nitrogen 21 mg/dL (9-16); Calcium 8.6 mg/dL (8.4-10.2); Carbon Dioxide 26 mmol/L (22-29); Chloride 101 mmol/L (96-108); Creatinine Clr Calc Pharmacy 37.6; Estimated Glomerular Filt Rate 58; Potassium 4.2 mmol/L (3.3-5.1); Sodium 134 mmol/L (135-145); Total Protein 5.6 g/dL (6.5-8.0)
[2025-03-09 07:43] VITALS: BP 129/60; PULSE 63; RESP 20; TEMP 36.3; O2SAT 94
[2025-03-09] MEDS: Calcium + Vitamin D 250 MG TABLET 500 MG PO (08:57)
[2025-03-09] MEDS: 0.9 % Sodium Chloride Flush 3 ML SYRINGE IVFLUSH ×3 (08:58→19:51)
[2025-03-09] MEDS: Silver Sulfadiazine 1 % Cream 20 GM TUBE 1 APPL TOPICAL (08:59)
[2025-03-09 11:52] VITALS: BP 134/63; PULSE 67; RESP 18; TEMP 36.4; O2SAT 93
--- NOTE | 2025-03-09 13:41 | HO.PM.IMPN ---
Subjective Subjective Date of Service: 03/09/25 Interval History: No acute issues overnight. Blood pressure stable Review of Systems Denies chest pain Denies shortness of breath Denies nausea vomiting diarrhea Denies fever chills Physical Exam Vital Signs: Vital Signs: Last Vital Signs Temp 97.6 F 03/09/25 11:52 Pulse 67 03/09/25 11:52 Resp 18 03/09/25 11:52 BP 134/63 03/09/25 11:52 Pulse Ox 93 03/09/25 11:52 O2 Del Method Room Air 03/09/25 11:52 O2 Flow Rate 2 03/06/25 07:18 Oxygen Flow Rate 5 03/04/25 11:08 BMI result Body Mass Index 19.6 Const: Other: Awake alert no acute distress Resp: Other: Clear to auscultation bilaterally no rales rhonchi or wheezes Cardio: Other: No S4; positive S1-S2; no S3 murmurs rubs or gallops GI: Other: Soft nontender nondistended normoactive bowel sounds Extrem: Other: No edema bilaterally. Compression socks on Objective Data Active Medications Acetaminophen (Acetaminophen 325 Mg Tablet) 650 mg PO Q6H PRN PRN Reason: Pain, Mild 1-3,fever,headache Atorvastatin Calcium (Atorvastatin Calcium 40 Mg Tablet) 40 mg PO BEDTIME [facility] Last Admin: 03/08/25 21:07 Dose: 40 mg Documented By: OMI Calcium Carbonate (Calcium Carbonate 750 Mg Tab.Chew) 750 mg PO Q4H PRN PRN Reason: Heartburn Calcium Carbonate/Cholecalciferol (Calcium + Vitamin D 250 Mg Tablet) 500 mg PO DAILY [facility] Last Admin: 03/09/25 08:57 Dose: 500 mg Documented By: JODY Clopidogrel Bisulfate (Clopidogrel Bisulfate 75 Mg Tablet) 75 mg PO DAILY [facility] Last Admin: 03/09/25 08:57 Dose: 75 mg Documented By: JODY Cyanocobalamin (Cyanocobalamin (Vitamin B-12) 1,000 Mcg Tablet) 1,000 mcg PO DAILY [facility] Last Admin: 03/09/25 08:57 Dose: 1,000 mcg Documented By: JODY Finasteride (Finasteride 5 Mg Tablet) 5 mg PO DAILY [facility] Last Admin: 03/09/25 08:57 Dose: 5 mg Documented By: JODY Fludrocortisone Acetate (Fludrocortisone Acetate 0.1 Mg Tablet) 0.1 mg PO QAM [facility] Magnesium Hydroxide (Milk Of Magnesia 30 Ml Oral.Susp) 30 ml PO DAILY PRN PRN Reason: Constipation Melatonin (Melatonin 3 Mg Tablet) 6 mg PO BEDTIME PRN PRN Reason: Insomnia Silver Sulfadiazine (Silver Sulfadiazine 1 % Cream 20 Gm Tube) 1 appl TOPICAL DAILY [facility] Last Admin: 03/09/25 08:59 Dose: 1 appl Documented By: JODY Sodium Chloride (0.9 % Sodium Chloride Flush 3 Ml Syringe) 3 ml IVFLUSH QSHIFT [facility] Last Admin: 03/09/25 08:58 Dose: 3 ml Documented By: JODY Tamsulosin HCl (Tamsulosin Hcl 0.4 Mg Capsule) 0.4 mg PO BEDTIME [facility] Last Admin: 03/08/25 21:07 Dose: 0.4 mg Documented By: OMI Labs 03/09/25 05:38 03/09/25 05:38 Labs: Laboratory Results - last 24 hr 03/08/25 03/09/25 20:35 05:38 MCV 89.1 MCH 29.4 MCHC 33.1 RDW 15.3 Plt Count 245 MPV 10.6 Immature Gran % (Auto) 0.4 Neut % (Auto) 53.2 Lymph % (Auto) 23.4 [place] % (Auto) 16.9 H Eos % (Auto) 5.3 H Baso % (Auto) 0.8 Lymph # (Auto) 1.2 [place] # (Auto) 0.9 Eos # (Auto) 0.3 Baso # (Auto) 0.0 Abs Immat Gran (auto) 0.02 Absolute Neuts (auto) 2.7 Absolute Nucleated RBC 0.000 Nucleated RBC % (auto) 0.0 Anion Gap 11 L Estim Creat Clear Calc 37.6 Estimated GFR 58 POC Glucose 117 H Fasting Glucose 85 Calcium 8.6 Total Bilirubin 0.3 AST 25 ALT 16 Alkaline Phosphatase 87 Total Protein 5.6 L Albumin 3.1 L Random Cortisol 3.9 Microbiology Microbiology Results: Microbiology 03/04/25 11:24 Blood Culture - Final Blood - Venous No growth after 5 days. Assessment and Plan (1) Orthostatic hypotension: Status: Acute (2) Hyponatremia: Status: Acute Plan 89-year-old male with history of phimosis, left inguinal hernia, TIA, hypertension, hyperlipidemia who was sent to the emergency department from [facility] due to period of unresponsiveness 1.Orthostatic hypotension -fasting cortisol low... Most likely related to adrenal insufficiency -DC midodrine in favor of Florinef -follow renals/divalent/BP 2.Hyponatremia -slowly responding to therapies -follow renals/divalents 3.CAD -stable and well compensated 4.HTN -continue to hold HCTZ -acceptable control off HCTZ mechanical devices DNR DNI Requires ongoing hospitalization to treat orthostatic hypotension with therapies and specialty consultation Quality Stroke Does the patient have a stroke diagnosis?: No VTE Prior VTE?: No VTE Risk Level:: Medical - moderate - high VTE Device Contraindication: N/A - Device Ordered VTE Drug Contraindication: Treatment Not Indicated
[2025-03-09 15:28] VITALS: BP 90/56; PULSE 67; RESP 18; TEMP 36.8; O2SAT 93
[2025-03-09 20:00] VITALS: BP 92/54; PULSE 76; RESP 16; TEMP 36.7; O2SAT 95
[2025-03-09 23:55] VITALS: BP 112/55; PULSE 74; RESP 16; TEMP 37.7; O2SAT 95
[2025-03-10 03:26] VITALS: BP 116/57; PULSE 76; RESP 16; TEMP 37.7; O2SAT 95
[2025-03-10 07:30] VITALS: BP 129/57; PULSE 92; RESP 20; TEMP 36.3; O2SAT 94
[2025-03-10 07:47] LABS: MANUAL DIFF FLAG NO
[2025-03-10 07:51] LABS: Hematocrit 23.4 % (42.0-52.0); Hematocrit 24.0 % (42.0-52.0); Hemoglobin 7.9 g/dl (14.0-18.0); Imm Gran Abs Auto 0.01 X10*3/uL (0.00-0.03); Imm Gran Abs Auto 0.02 X10*3/uL (0.00-0.03); Imm Gran Pct Auto 0.2 % (0.0-0.4); Imm Gran Pct Auto 0.4 % (0.0-0.4); Lymphocytes Absolute Auto 1.1 X10*3/uL (1.2-4.9); Mean Corpuscular HGB Conc 32.9 g/dl (31.0-36.0); Mean Corpuscular HGB Conc 33.8 g/dl (31.0-36.0); Mean Corpuscular Hemoglobin 29.3 pg (27.0-33.0); Mean Corpuscular Hemoglobin 29.7 pg (27.0-33.0); Mean Corpuscular Volume 88.0 fL (80.0-98.0); Mean Corpuscular Volume 88.9 fL (80.0-98.0); NRBC Abs Auto 0.000 X10*3/uL (0.0-0.012); NRBC Pct Auto 0.0 /100WBC (0.0-0.2); Platelet Count 222 X10*3/uL (160-400); Red Blood Count 2.66 X10*6/uL (4.60-5.80); Red Blood Count 2.70 X10*6/uL (4.60-5.80); White Blood Count 5.2 X10*3/uL (4.8-10.8); White Blood Count 5.6 X10*3/uL (4.8-10.8)
[2025-03-10 08:09] LABS: Alanine Aminotransferase 16 U/L (0-40); Albumin Level 3.2 g/dL (3.5-5.0); Alkaline Phosphatase 79 U/L (39-117); Anion Gap 10 (12-20); Aspartate Amino Transferase 21 U/L (5-37); Blood Urea Nitrogen 23 mg/dL (9-16); Calcium 8.7 mg/dL (8.4-10.2); Carbon Dioxide 25 mmol/L (22-29); Chloride 103 mmol/L (96-108); Creatinine Clr Calc Pharmacy 34.7; Estimated Glomerular Filt Rate 53; Potassium 4.1 mmol/L (3.3-5.1); Sodium 134 mmol/L (135-145); Total Protein 5.6 g/dL (6.5-8.0)
[2025-03-10 08:13] LABS: Alanine Aminotransferase 15 U/L (0-40); Albumin Level 3.1 g/dL (3.5-5.0); Alkaline Phosphatase 79 U/L (39-117); Anion Gap 8 (12-20); Aspartate Amino Transferase 22 U/L (5-37); Blood Urea Nitrogen 23 mg/dL (9-16); Calcium 8.6 mg/dL (8.4-10.2); Carbon Dioxide 26 mmol/L (22-29); Chloride 103 mmol/L (96-108); Creatinine Clr Calc Pharmacy 34.4; Estimated Glomerular Filt Rate 52; Potassium 4.1 mmol/L (3.3-5.1); Sodium 133 mmol/L (135-145); Total Protein 5.6 g/dL (6.5-8.0)
[2025-03-10] MEDS: Calcium + Vitamin D 250 MG TABLET 500 MG PO (08:34)
[2025-03-10] MEDS: 0.9 % Sodium Chloride Flush 3 ML SYRINGE IVFLUSH (08:34)
[2025-03-10] MEDS: Silver Sulfadiazine 1 % Cream 20 GM TUBE 1 APPL TOPICAL (08:40)
[2025-03-10 11:17] VITALS: BP 120/59; PULSE 64; RESP 18; TEMP 36.2; O2SAT 96
--- NOTE | 2025-03-10 11:45 | P.DS_ITS ---
DS: Providers Provider Date of Service: 03/10/25 Date of admission: 03/04/25 14:12 Date of discharge: 03/10/25 Primary care physician: Regis Wahl MD Consults: 03/04/25 14:40 Consult to Neurology Routine Consulting Provider: Eduardo Moreno Reason for consultation: left facial droop unresponsiveness at facility Has provider been notified: No 03/05/25 08:05 Consult to Nephrology Routine Consulting Provider: [facility] Reason for consultation: hyponatremia 03/05/25 16:43 Consult to Wound Care Routine Reason for consultation: redness to buttocks, reynaldo legs wounds DS: Diagnosis Discharge Diagnosis (1) Orthostatic hypotension: Status: Acute (2) Hyponatremia: Status: Acute DS: Summary Hospital Course Hospital Course: 89-year-old male with a history of hypertension, hyperlipidemia, TIA, coronary artery disease who presents to the emergency department from [facility]. Per triage note patient had a syncopal episode during physical therapy which lasted approximately 2 minutes. Per emergency room provider note yesterday was noted to have confusion and woke up this morning with generalized weakness, with periods of unresponsiveness for about 10 minutes. When he started regaining consciousness he was hypoxic with an oxygen saturation of 87% on room air. In the ED brain CT was unremarkable, patient was not noted to have any focal neurological deficits. He was afebrile, lab work revealed no elevated white blood cell count. Chemistries were significant for hyponatremia with a sodium of 128. CXR showing underlying atelectasis vs right lung base pneumonia not ruled out. UA negative for acute infection. He was started on gentle fluid rehydration in the emergency department. On my exam, patient is awake and alert, but very hard of hearing and without his hearing aides, therefore he was unable to provide any significant history. He was off oxygen and he was able to follow commands. Hospital Course Patient admitted to telemetry where monitor failed to demonstrate any acute dysrhythmias. He received gentle IV fluids and his sodium essentially normalized. He was found to be profoundly orthostatic; no response to volume. A.m. cortisol was drawn which was low. He was subsequently started on Florinef 0.1 mg daily with stabilization of his blood pressure. At this point in time he is anxious to return to SNF to be with his and he is medically acceptable for same Time Attestation Discharge Coordination Time (in mins): 35 Quality: Safe Use of Opioids Does Pt have an Active Cancer Diagnosis on the Problem List?: No Quality: Stroke Does the patient have a stroke diagnosis?: No Physical Exam Vital Signs: Vital Signs: Last Vital Signs Temp 97.2 F 03/10/25 11:17 Pulse 64 03/10/25 11:17 Resp 18 03/10/25 11:17 BP 120/59 L 03/10/25 11:17 Pulse Ox 96 03/10/25 11:17 O2 Del Method Room Air 03/10/25 11:17 O2 Flow Rate 2 03/06/25 07:18 Oxygen Flow Rate 5 03/04/25 11:08 BMI result Body Mass Index 19.6 Const: Other: Awake alert no acute distress Resp: Other: Clear to auscultation bilaterally no rales rhonchi or wheezes Cardio: Other: No S4; positive S1-S2; no S3 murmurs rubs or gallops GI: Other: Soft nontender nondistended normoactive bowel sounds Extrem: Other: No edema bilaterally. Compression socks on DS: Data Data Completed and Pending Labs on day of discharge: Laboratory Results - last 24 hr 03/10/25 03/10/25 03/10/25 07:36 07:36 07:36 WBC 5.6 5.2 RBC 2.66 L 2.70 L Hgb 7.9 L Hct MCV MCH MCHC RDW Plt Count MPV Immature Gran % (Auto) Neut % (Auto) Lymph % (Auto) [place] % (Auto) Eos % (Auto) Baso % (Auto) Lymph # (Auto) [place] # (Auto) Eos # (Auto) Baso # (Auto) Abs Immat Gran (auto) Absolute Neuts (auto) Absolute Nucleated RBC Nucleated RBC % (auto) Sodium Potassium Chloride Carbon Dioxide Anion Gap BUN Creatinine Estim Creat Clear Calc Estimated GFR Random Glucose Fasting Glucose Calcium Total Bilirubin AST ALT Alkaline Phosphatase Total Protein Albumin 03/10/25 03/10/25 03/10/25 07:36 07:36 07:36 WBC RBC Hgb 7.9 L Hct 23.4 L 24.0 L MCV 88.0 88.9 MCH 29.7 MCHC RDW Plt Count MPV Immature Gran % (Auto) Neut % (Auto) Lymph % (Auto) [place] % (Auto) Eos % (Auto) Baso % (Auto) Lymph # (Auto) [place] # (Auto) Eos # (Auto) Baso # (Auto) Abs Immat Gran (auto) Absolute Neuts (auto) Absolute Nucleated RBC Nucleated RBC % (auto) Sodium Potassium Chloride Carbon Dioxide Anion Gap BUN Creatinine Estim Creat Clear Calc Estimated GFR Random Glucose Fasting Glucose Calcium Total Bilirubin AST ALT Alkaline Phosphatase Total Protein Albumin 03/10/25 03/10/25 03/10/25 07:36 07:36 07:36 WBC RBC Hgb Hct MCV MCH 29.3 MCHC 33.8 32.9 RDW 15.3 15.4 Plt Count 222 MPV Immature Gran % (Auto) Neut % (Auto) Lymph % (Auto) [place] % (Auto) Eos % (Auto) Baso % (Auto) Lymph # (Auto) [place] # (Auto) Eos # (Auto) Baso # (Auto) Abs Immat Gran (auto) Absolute Neuts (auto) Absolute Nucleated RBC Nucleated RBC % (auto) Sodium Potassium Chloride Carbon Dioxide Anion Gap BUN Creatinine Estim Creat Clear Calc Estimated GFR Random Glucose Fasting Glucose Calcium Total Bilirubin AST ALT Alkaline Phosphatase Total Protein Albumin 03/10/25 03/10/25 03/10/25 07:36 07:36 07:36 WBC RBC Hgb Hct MCV MCH MCHC RDW Plt Count 222 MPV 10.5 10.6 Immature Gran % (Auto) 0.4 0.2 Neut % (Auto) 57.5 Lymph % (Auto) [place] % (Auto) Eos % (Auto) Baso % (Auto) Lymph # (Auto) [place] # (Auto) Eos # (Auto) Baso # (Auto) Abs Immat Gran (auto) Absolute Neuts (auto) Absolute Nucleated RBC Nucleated RBC % (auto) Sodium Potassium Chloride Carbon Dioxide Anion Gap BUN Creatinine Estim Creat Clear Calc Estimated GFR Random Glucose Fasting Glucose Calcium Total Bilirubin AST ALT Alkaline Phosphatase Total Protein Albumin 03/10/25 03/10/25 03/10/25 07:36 07:36 07:36 WBC RBC Hgb Hct MCV MCH MCHC RDW Plt Count MPV Immature Gran % (Auto) Neut % (Auto) 54.5 Lymph % (Auto) 19.8 L 20.3 [place] % (Auto) 16.8 H 17.5 H Eos % (Auto) 4.6 H Baso % (Auto) Lymph # (Auto) [place] # (Auto) Eos # (Auto) Baso # (Auto) Abs Immat Gran (auto) Absolute Neuts (auto) Absolute Nucleated RBC Nucleated RBC % (auto) Sodium Potassium Chloride Carbon Dioxide Anion Gap BUN Creatinine Estim Creat Clear Calc Estimated GFR Random Glucose Fasting Glucose Calcium Total Bilirubin AST ALT Alkaline Phosphatase Total Protein Albumin 03/10/25 03/10/25 03/10/25 07:36 07:36 07:36 WBC RBC Hgb Hct MCV MCH MCHC RDW Plt Count MPV Immature Gran % (Auto) Neut % (Auto) Lymph % (Auto) [place] % (Auto) Eos % (Auto) 6.3 H Baso % (Auto) 0.9 1.2 Lymph # (Auto) 1.1 L 1.1 L [place] # (Auto) 0.9 Eos # (Auto) Baso # (Auto) Abs Immat Gran (auto) Absolute Neuts (auto) Absolute Nucleated RBC Nucleated RBC % (auto) Sodium Potassium Chloride Carbon Dioxide Anion Gap BUN Creatinine Estim Creat Clear Calc Estimated GFR Random Glucose Fasting Glucose Calcium Total Bilirubin AST ALT Alkaline Phosphatase Total Protein Albumin 03/10/25 03/10/25 03/10/25 07:36 07:36 07:36 WBC RBC Hgb Hct MCV MCH MCHC RDW Plt Count MPV Immature Gran % (Auto) Neut % (Auto) Lymph % (Auto) [place] % (Auto) Eos % (Auto) Baso % (Auto) Lymph # (Auto) [place] # (Auto) 0.9 Eos # (Auto) 0.3 0.3 Baso # (Auto) 0.1 0.1 Abs Immat Gran (auto) 0.02 Absolute Neuts (auto) Absolute Nucleated RBC Nucleated RBC % (auto) Sodium Potassium Chloride Carbon Dioxide Anion Gap BUN Creatinine Estim Creat Clear Calc Estimated GFR Random Glucose Fasting Glucose Calcium Total Bilirubin AST ALT Alkaline Phosphatase Total Protein Albumin 03/10/25 03/10/25 03/10/25 07:36 07:36 07:36 WBC RBC Hgb Hct MCV MCH MCHC RDW Plt Count MPV Immature Gran % (Auto) Neut % (Auto) Lymph % (Auto) [place] % (Auto) Eos % (Auto) Baso % (Auto) Lymph # (Auto) [place] # (Auto) Eos # (Auto) Baso # (Auto) Abs Immat Gran (auto) 0.01 Absolute Neuts (auto) 3.2 2.8 Absolute Nucleated RBC 0.000 0.000 Nucleated RBC % (auto) 0.0 Sodium Potassium Chloride Carbon Dioxide Anion Gap BUN Creatinine Estim Creat Clear Calc Estimated GFR Random Glucose Fasting Glucose Calcium Total Bilirubin AST ALT Alkaline Phosphatase Total Protein Albumin 03/10/25 03/10/25 03/10/25 07:36 07:36 07:36 WBC RBC Hgb Hct MCV MCH MCHC RDW Plt Count MPV Immature Gran % (Auto) Neut % (Auto) Lymph % (Auto) [place] % (Auto) Eos % (Auto) Baso % (Auto) Lymph # (Auto) [place] # (Auto) Eos # (Auto) Baso # (Auto) Abs Immat Gran (auto) Absolute Neuts (auto) Absolute Nucleated RBC Nucleated RBC % (auto) 0.0 Sodium 134 L 133 L Potassium 4.1 4.1 Chloride 103 Carbon Dioxide Anion Gap BUN Creatinine Estim Creat Clear Calc Estimated GFR Random Glucose Fasting Glucose Calcium Total Bilirubin AST ALT Alkaline Phosphatase Total Protein Albumin 03/10/25 03/10/25 03/10/25 07:36 07:36 07:36 WBC RBC Hgb Hct MCV MCH MCHC RDW Plt Count MPV Immature Gran % (Auto) Neut % (Auto) Lymph % (Auto) [place] % (Auto) Eos % (Auto) Baso % (Auto) Lymph # (Auto) [place] # (Auto) Eos # (Auto) Baso # (Auto) Abs Immat Gran (auto) Absolute Neuts (auto) Absolute Nucleated RBC Nucleated RBC % (auto) Sodium Potassium Chloride 103 Carbon Dioxide 25 26 Anion Gap 10 L 8 L BUN 23 H Creatinine Estim Creat Clear Calc Estimated GFR Random Glucose Fasting Glucose Calcium Total Bilirubin AST ALT Alkaline Phosphatase Total Protein Albumin 03/10/25 03/10/25 03/10/25 07:36 07:36 07:36 WBC RBC Hgb Hct MCV MCH MCHC RDW Plt Count MPV Immature Gran % (Auto) Neut % (Auto) Lymph % (Auto) [place] % (Auto) Eos % (Auto) Baso % (Auto) Lymph # (Auto) [place] # (Auto) Eos # (Auto) Baso # (Auto) Abs Immat Gran (auto) Absolute Neuts (auto) Absolute Nucleated RBC Nucleated RBC % (auto) Sodium Potassium Chloride Carbon Dioxide Anion Gap BUN 23 H Creatinine 1.29 1.30 Estim Creat Clear Calc 34.7 34.4 Estimated GFR 53 Random Glucose Fasting Glucose Calcium Total Bilirubin AST ALT Alkaline Phosphatase Total Protein Albumin 03/10/25 03/10/25 03/10/25 07:36 07:36 07:36 WBC RBC Hgb Hct MCV MCH MCHC RDW Plt Count MPV Immature Gran % (Auto) Neut % (Auto) Lymph % (Auto) [place] % (Auto) Eos % (Auto) Baso % (Auto) Lymph # (Auto) [place] # (Auto) Eos # (Auto) Baso # (Auto) Abs Immat Gran (auto) Absolute Neuts (auto) Absolute Nucleated RBC Nucleated RBC % (auto) Sodium Potassium Chloride Carbon Dioxide Anion Gap BUN Creatinine Estim Creat Clear Calc Estimated GFR 52 Random Glucose 84 Fasting Glucose 84 Calcium 8.7 8.6 Total Bilirubin 0.3 0.3 AST 21 ALT Alkaline Phosphatase Total Protein Albumin 03/10/25 03/10/25 03/10/25 07:36 07:36 07:36 WBC RBC Hgb Hct MCV MCH MCHC RDW Plt Count MPV Immature Gran % (Auto) Neut % (Auto) Lymph % (Auto) [place] % (Auto) Eos % (Auto) Baso % (Auto) Lymph # (Auto) [place] # (Auto) Eos # (Auto) Baso # (Auto) Abs Immat Gran (auto) Absolute Neuts (auto) Absolute Nucleated RBC Nucleated RBC % (auto) Sodium Potassium Chloride Carbon Dioxide Anion Gap BUN Creatinine Estim Creat Clear Calc Estimated GFR Random Glucose Fasting Glucose Calcium Total Bilirubin AST 22 ALT 16 15 Alkaline Phosphatase 79 79 Total Protein 5.6 L Albumin 03/10/25 03/10/25 07:36 07:36 WBC RBC Hgb Hct MCV MCH MCHC RDW Plt Count MPV Immature Gran % (Auto) Neut % (Auto) Lymph % (Auto) [place] % (Auto) Eos % (Auto) Baso % (Auto) Lymph # (Auto) [place] # (Auto) Eos # (Auto) Baso # (Auto) Abs Immat Gran (auto) Absolute Neuts (auto) Absolute Nucleated RBC Nucleated RBC % (auto) Sodium Potassium Chloride Carbon Dioxide Anion Gap BUN Creatinine Estim Creat Clear Calc Estimated GFR Random Glucose Fasting Glucose Calcium Total Bilirubin AST ALT Alkaline Phosphatase Total Protein 5.6 L Albumin 3.2 L 3.1 L Discharge Plan Discharge Anticipated Discharge Date/Time: 03/10/25 11:41 Patient Disposition: Xfer SNF Discharge Diagnosis: 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 Referrals: Regis Wahl MD [Primary Care Provider, Internal Medicine] - 1 Week Discharge Medications: New fludrocortisone 0.1 mg Tablet 0.1 mg PO DAILY Qty: 30 0RF Continued cyanocobalamin (vitamin B-12) [Vitamin B-12] 1,000 mcg Tablet 1,000 mcg PO DAILY calcium carbonate-vitamin D3 600 mg-5 mcg (200 unit) Tablet 1 tab PO DAILY silver sulfadiazine 1 % Cream 1 appl TOPICAL DAILY Rx Instructions: apply a 1.5 mm thickness clopidogrel 75 mg Tablet 75 mg PO DAILY finasteride 5 mg Tablet 5 mg PO DAILY Qty: 90 0RF atorvastatin 40 mg Tablet 40 mg PO BEDTIME acetaminophen [Tylenol] 325 mg Tablet 650 mg PO Q4H PRN (Reason: Fever/Pain) acetaminophen 650 mg Suppository 650 mg VA Q4H PRN (Reason: Pain/Fever) naloxone 0.4 mg/mL Solution 0.4 mg SUBCUT Q3M PRN (Reason: Opioid Overdose) Rx Instructions: NTExceed 10 mg total dose/episode bisacodyl 10 mg Suppository 10 mg VA DAILY PRN (Reason: Constipation) Rx Instructions: If MoM ineffective. Fleet Enema 19-7 gram/118 mL Enema 118 ml VA DAILY PRN (Reason: Constipation) Rx Instructions: If Bisacodyl ineffective. magnesium hydroxide [Milk Of Magnesia Concentrated] 2,400 mg/10 mL Suspension 30 ml PO DAILY PRN (Reason: Constipation) vitamin E acetate 134 mg (200 unit) Capsule 134 mg PO DAILY tamsulosin 0.4 mg capsule 0.4 mg PO BEDTIME Discontinued hydrochlorothiazide 12.5 mg Tablet 12.5 mg PO DAILY Discharge Orders: Discharge Order (Routine); Ordered 03/10/25 Ordered By: Bulmaro Rivas Diet: Advance to usual diet Activity on Discharge: As tolerated Stand Alone Forms: Patient Portal Discharge page Print Language: Unable To Collect Care Plan Goals: Continue all meds as outlined on transfer sheet Health Concerns: Florinef 0.1 mg daily has been added to regimen Plan of Treatment: As per receiving facility Assessment: See discharge summary
--- NOTE | 2025-03-10 12:58 | MHC.CM.PN ---
SECOND IMM GIVEN 03/10. PT IS MEDICALLY CLEARED FOR DISCHARGE TO [facility] AT [facility], HE WILL TRANSPORT THERE VIA BLS/FRAN TODAY. PTS /HCP CALLED, MESSAGE LEFT, PTS SISTER ALSO NOTIFIED OF THE DISCHARGE PLAN.
[2025-03-10 15:30] VITALS: BP 107/57; PULSE 69; RESP 18; TEMP 36.9; O2SAT 96
== END 2025-03-10 15:58 | disposition skilled nursing facility (03) | DRG 643 ==
LOC: HO.ED 12:06 → HO.EDOVER 14:16 → HO.S3 19:28 → HO.EDOVER 20:06 → HO.IMC 03-05 14:08
PROVIDERS: Nurse Practitioner Acute Care; Admitting Provider Physician Assistant Medical; Emergency Provider Emergency Medicine; PCP Family Medicine; Visit Provider Hospitalist
DX: E27.40 Unspecified adrenocortical insufficiency (principal); J18.9 Pneumonia, unspecified organism; E22.2 Syndrome of inappropriate secretion of antidiuretic hormone; J98.11 Atelectasis; I95.1 Orthostatic hypotension; T50.2X5A Adverse effect of carbonic-anhydrase inhibitors, benzothiadiazides and other diuretics, initial encounter; I25.10 Atherosclerotic heart disease of native coronary artery without angina pectoris; Z66 Do not resuscitate; D64.9 Anemia, unspecified; N40.0 Benign prostatic hyperplasia without lower urinary tract symptoms; F03.90 Unspecified dementia, unspecified severity, without behavioral disturbance, psychotic disturbance, mood disturbance, and anxiety; E78.5 Hyperlipidemia, unspecified; I10 Essential (primary) hypertension; Z20.822 Contact with and (suspected) exposure to COVID-19; Z79.02 Long term (current) use of antithrombotics/antiplatelets; Z79.899 Other long term (current) drug therapy
CPT/HCPCS: 36415; 70450; 70496; 70498; 71045; 71250; 80048; 80053; 80061; 80076; 81001; 82140; 82436; 82533; 82803; 82947; 83605; 83690; 83880; 83930; 83935; 84133; 84295; 84300; 84484; 85025; 85610; 87040; 87637; 93005; 95816; 97110; 97112; 97162; 97165; 97530; 99285; J0696; Q9967

== ENCOUNTER → 2025-03-04 11:14 | Outpatient (BNV) | payer OTHER, SELFPAY | PROVIDERS: Admitting Provider Physician Assistant Medical; Emergency Provider Emergency Medicine; PCP Family Medicine; Visit Provider Internal Medicine Cardiovascular Disease | DX: R94.31 Abnormal electrocardiogram [ECG] [EKG] (principal); R06.02 Shortness of breath | CPT/HCPCS: 93010 ==

== ENCOUNTER → 2025-03-04 11:15 | Outpatient (BNV) | payer OTHER, SELFPAY | PROVIDERS: Emergency Provider Emergency Medicine; PCP Family Medicine; Visit Provider Radiology Diagnostic Radiology | DX: I65.02 Occlusion and stenosis of left vertebral artery (principal); I65.01 Occlusion and stenosis of right vertebral artery | CPT/HCPCS: 70450; 70496; 70498; 71045 ==

== ENCOUNTER 2025-03-04 14:12 | Outpatient (BNV) | payer OTHER, SELFPAY | END 2025-03-05 13:53 | PROVIDERS: Admitting Provider Physician Assistant Medical; Emergency Provider Emergency Medicine; PCP Family Medicine; Visit Provider Radiology Diagnostic Radiology | DX: J90 Pleural effusion, not elsewhere classified (principal) | CPT/HCPCS: 71250 ==

== ENCOUNTER 2025-03-04 14:12 | Outpatient (BNV) | payer OTHER, SELFPAY | END 2025-03-05 13:45 | PROVIDERS: Admitting Provider Physician Assistant Medical; Emergency Provider Emergency Medicine; PCP Family Medicine; Visit Provider Psychiatry & Neurology Neurology | DX: R40.20 Unspecified coma (principal) | CPT/HCPCS: 95816 ==

== ENCOUNTER → 2025-03-04 14:12 | Outpatient (BNV) | payer OTHER, SELFPAY | PROVIDERS: Admitting Provider Physician Assistant Medical; Emergency Provider Emergency Medicine; PCP Family Medicine; Visit Provider Nurse Practitioner Family | DX: E87.1 Hypo-osmolality and hyponatremia (principal) | CPT/HCPCS: 99231 ==

== ENCOUNTER → 2025-03-04 14:12 | Outpatient (BNV) | payer OTHER, MEDICARE, SELFPAY | PROVIDERS: Admitting Provider Physician Assistant Medical; Emergency Provider Emergency Medicine; PCP Family Medicine; Visit Provider Physician Assistant Medical | DX: E87.1 Hypo-osmolality and hyponatremia (principal) | CPT/HCPCS: 99223; 99232 ==

== ENCOUNTER → 2025-03-04 14:12 | Outpatient (BNV) | payer OTHER, MEDICARE, SELFPAY | PROVIDERS: Admitting Provider Physician Assistant Medical; Emergency Provider Emergency Medicine; PCP Family Medicine; Visit Provider Psychiatry & Neurology Neurology | DX: R40.4 Transient alteration of awareness (principal) | CPT/HCPCS: 99222 ==

== ENCOUNTER 2025-04-23 14:40 | Outpatient (AMB) | payer OTHER, SELFPAY ==
--- NOTE | 2025-04-23 15:21 | MHC.OFFVIS ---
Intake Visit Reasons: cysto Intake Note: Patient presents for cystoscopy Urology meds: Finasteride, Tamsulosin Blood Thinner : none Washer And Crusher Tender Required: No Accompanied by: Self / Same As Patient Allergies No Known Allergies (No Known Allergies*) Allergy (Verified 04/23/25 15:35) HPI Comments Details: Yeison is a male. He is a patient of Dr. Wahl. He is seen for the following urologic conditions - gross hematuria Resident of care home Seen in hospital in February for phimosis Has failed voiding trials at care home Here for check cystoscopy Heck catheter on tamsulosin and finasteride Failed voiding trial today Clearly infected urine 5 days Levaquin followed by suppression with methenamine and vitamin-C PFSH Medical History Chronic anemia Inguinal hernia Calcified mesenteric mass Left inguinal hernia Abnormal CT scan Inguinal hernia with strangulation TIA (transient ischemic attack) Hypercholesterolemia Hypertension Surgical History History of right inguinal hernia repair Social History Household Members: None Housing: Intermediate Housing Other:: m [facility],home alone w services Do you presently have visiting nurse or other home services: Yes Alcohol intake: former Patient Tobacco Use Status: Never used Tobacco e-Cigarette/Vaping Use: Never Used Second Hand Smoke Exposure: No Advance Directives Date on File: 09/17/22 service: Yes Current occupational status: retired Review of Systems Const Denies chills and Denies fever(s) Card Reports no additional complaints and Denies syncope Resp Denies cough GI Denies abdominal pain and Denies heartburn Reports as per HPI and Denies change in libido Neuro Denies syncope Psych Denies change in libido Endo Denies change in libido Physical Exam Const General: cooperative, healthy appearing, comfortable and no acute distress Orientation/consciousness: patient oriented x3 HEENT Face and sinus: Yes normal facial exam Mouth: moist mucous membranes Neck Neck: Yes normal visual inspection, Yes full ROM and Yes trachea midline Chest Chest palpation & inspection: normal inspection of the chest Resp Effort & Inspection: normal respiratory effort, able to speak in complete sentences and no respiratory distress GI Inspection: Yes normal to inspection Back/Spine/Pelvis Cervical Spine: normal cervical lordosis Thoracic/Lumbar Spine: thoracic and lumbar spine normal to inspection Skin General skin exam: no rashes or lesions noted Neuro General: patient oriented x3, gait normal, tone normal and moves all extremities Extrem General: Yes normal to inspection and Yes capillary refill normal Office Procedures Cystoscopy Consent Discussed risk and benefit or proposed procedure with the patient. Information consent for procedure given to the patient. Discussed technical aspects, risks, benefits and alternatives in full. Addressed all of the patient's questions and concerns regarding the procedure. The patient demonstrated knowledge and understanding. They wish to proceed with this procedure. Preparation The patient was prepped in the usual manner. A gluer machine operator was present and in the room. Genitalia was prepped with betadine solution in a sterile manner. Lidocaine Jelly 2% was placed into the urethra and 16Fr flexible Olympus cystoscope was inserted into the meatus after adequate lubrication. [id number] DISPOSABLE SCOPE URO-G FLEXIBLE SCOPE Procedure code (CPT) selection complete Office Meds lidocaine HCl 2 % mucosal jelly in applicator Performing Provider: Prasad Chong MD Performing Location: [facility] Administered by: Rasheeda Zaman RN on 04/23/25 15:48 Dose Route Admin Location Dispensed Lot Number Expiration Date NDC [employer] Unit Supervisor 10 mL intra-urethral 10 mL nitrofurantoin monohydrate/macrocrystals 100 mg capsule Performing Provider: Prasad Chong MD Performing Location: [facility] Administered by: Rasheeda Zaman RN on 04/23/25 15:48 Dose Route Admin Location Dispensed Lot Number Expiration Date NDC Corrections Unit Supervisor 100 mg PO 1 cap Comments: 18Fr heck catheter removed prior to cystoscopy. New 18Fr heck catheter 10ml inserted after cystoscopy. Assessment & Plan Assessment & Plan (1) Chronic UTI (urinary tract infection): Code(s): N39.0 - Urinary tract infection, site not specified Category: Medical Plan Continue suppression Six-month follow-up Orders: Orders AMB Cystoscopy 04/23/25 N47.1 - Phimosis Medications: New levofloxacin 250 mg PO DAILY 5 tabs 0RF 5 days N39.0 - Urinary tract infection, site not specified ascorbic acid (vitamin C) 1,000 mg PO DAILY 90 tabs 1RF 90 days N39.0 - Urinary tract infection, site not specified methenamine hippurate 1 g PO DAILY 90 tabs 1RF 90 days N39.0 - Urinary tract infection, site not specified Patient Instructions: This note is constructed using voice recognition software. While every effort has been made to ensure accuracy side door worker errors may have been included. Imaging studies, laboratory and physical exam results were discussed and reviewed in detail. No major barriers to patient understanding were identified. An opportunity to ask questions regarding the treatment plan was provided. All questions were answered. The patient expressed understanding and agreement with the above treatment plan. The patient is aware they should contact our office by phone for worsening of their current condition or the appearance of new urologic symptoms. Compliance is encouraged with any medications and followup testing that is ordered. It is a privilege to participate in the urologic care of your patient. If you have any questions or concerns regarding treatment for the above conditions, or other urologic issues, please do not hesitate to contact me. The office telephone contact is [phone]. Sincerely, Dr Prasad Chong MD, [facility] - Urology Compassionate Specialist Care for the Genitourinary System Coding Level of Care Code Est Pt Level 4 (76507) Complex EM visit Add On G2211 Diagnoses Chronic UTI (urinary tract infection) N39.0 CPT Codes Cystoscopy - CPT: 91276-[id number] ([id number])
--- OUTSIDE RECORDS SUMMARY | 2025-04-23 16:26 | XMS_ITS | Encounter Summary ---
[facility] Organization [facility] Address [address] [place] [address] Care Team Providers Care Nurse First Assist Name Role Phone Regis Wahl MD Primary Care Provider [phone] Encounter Details Date Type Department Care Team (Late st Contact Info) Description 09/12/[address] [facility] - Main Lab [address] [place] [address] Regis Wahl MD 38 [facility] [address] [place], [address] Urinary tract infection, site not specified; Atherosclerotic heart disease of [place] coronary artery without angina pectoris Social History Tobacco Use Types Packs/Day Years Used Date Smoking Tobacco: Never Assessed Sex and Gender Information Value Date Recorded Sex Assigned at Not on file Legal Sex Male 8:52 PM EST Gender Identity Not on file Sexual Orientation Not on file documented as of this encounter Plan of Treatment Not on file documented as of this encounter Procedures Procedure Name Priority Date/Time Associated Diagnosis Comments COMPLETE BLOOD COUNT Routine 09/12/2024 7:25 AM EDT Urinary tract infection, site not specified Atherosclerotic heart disease of [place] coronary artery without angina pectoris BASIC METABOLIC PANEL Routine 09/12/2024 7:25 AM EDT Urinary tract infection, site not specified Atherosclerotic heart disease of [place] coronary artery without angina pectoris documented in this encounter Results * (ABNORMAL) Basic metabolic panel (09/12/2024 7:25 AM EDT) Sodium 136 133 - 145 mmol/L LAB CHEMISTRY METHOD 09/12/2024 8:01 PM EDT [facility] Potassium 3.6 3.5 - 5.5 mmol/L LAB CHEMISTRY METHOD 09/12/2024 8:01 PM [facility] Chloride 101 96 - 110 mmol/L LAB CHEMISTRY METHOD 09/12/2024 8:01 PM [facility] CO2 29 21 - 32 mmol/L LAB CHEMISTRY METHOD 09/12/2024 8:01 PM [facility] Anion Gap 6 3 - 11 LAB CHEMISTRY METHOD 09/12/2024 8:01 PM [facility] Glucose 91 70 - 100 mg/dL LAB CHEMISTRY METHOD 09/12/2024 8:01 PM [facility] BUN 37(H) 5 - 25 mg/dL LAB CHEMISTRY METHOD 09/12/2024 8:01 PM [facility] Creatinine 1.32(H) 0.70 - 1.30 mg/dL LAB CHEMISTRY METHOD 09/12/2024 8:01 PM [facility] LAB eGFR 52(L) >=60 mL/min/1. 73m2 LAB CHEMISTRY METHOD 09/12/2024 8:01 PM [facility] LAB Comment:Calculation based on the Chronic Kidney Disease Epidemiology Collaboration (CKD-EPI) equation refit without adjustment for race. BUN/Creatinine Ratio 28.0 LAB CHEMISTRY METHOD 09/12/2024 8:01 PM [facility] Calcium 8.7 8.5 - 10.5 mg/dL LAB CHEMISTRY METHOD 09/12/2024 8:01 PM [facility] LAB Blood Venous blood specimen / Unknown Venipuncture / Unknown 09/12/2024 7:25 AM EDT 09/12/2024 12:10 PM EDT us Regis Wahl MD LAB BLOOD ORDERABLES Final Resul t [facility] [address] [place] [address], [place] [phone] * (ABNORMAL) Complete blood count (09/12/2024 7:25 AM EDT) [facility] WBC 7.6 4.8 - 10.8 K/mcL LAB HEMETOLOGY METHOD 09/12/2024 12:47 PM [facility] RBC 2.90(L) 4.50 - 5.50 M/mcL LAB HEMETOLOGY METHOD 09/12/2024 12:47 PM [facility] Hemoglobin 8.2(L) 13.5 - 17.5 g/dL LAB HEMETOLOGY METHOD 09/12/2024 12:47 PM [facility] Hematocrit 26.6(L) 42.0 - 54.0 % LAB HEMETOLOGY METHOD 09/12/2024 12:47 PM [facility] MCV 90.8 79.0 - 98.0 FL LAB HEMETOLOGY METHOD 09/12/2024 12:47 PM [facility] MCH 28.0 27.0 - 32.0 pcg LAB HEMETOLOGY METHOD 09/12/2024 12:47 PM [facility] MCHC 30.8(L) 32.0 - 37.0 g/dL LAB HEMETOLOGY METHOD 09/12/2024 12:47 PM [facility] RDW 15.4(H) 11.0 - 15.0 % LAB HEMETOLOGY METHOD 09/12/2024 12:47 PM [facility] Platelets 259 130 - 400 K/mcL LAB HEMETOLOGY METHOD 09/12/2024 12:47 PM [facility] MPV 10.3 7.0 - 11.0 FL LAB HEMETOLOGY METHOD 09/12/2024 12:47 PM [facility] NRBC 0.0 <1.0 % LAB HEMETOLOGY METHOD 09/12/2024 12:47 PM [facility] NRBC Absolute 0.00 <0.10 K/mcL LAB HEMETOLOGY METHOD 09/12/2024 12:47 PM EDT [facility] LAB Blood Venous blood specimen / Unknown Venipuncture / Unknown 09/12/2024 7:25 AM EDT 09/12/2024 12:10 PM EDT us Regis Wahl MD LAB BLOOD ORDERABLES Final Resul t [facility] [address] [place] [address], documented in this encounter Visit Diagnoses Diagnosis Urinary tract infection, site not specified Atherosclerotic heart disease of [place] coronary artery without angina pectoris documented in this encounter Care Teams Nurse First Assist Relationship Specialty Start Date End Date Regis Wahl MD [address] [place] [phone] PCP - General Family Medicine 08/24/24 documented as of this encounter
--- OUTSIDE RECORDS SUMMARY | 2025-04-23 16:26 | XMS_ITS | Encounter Summary ---
[facility] Organization [facility] Address [address] [place] [address] Care Team Providers Care Shipper Receiver Name Role Phone Regis Wahl MD Primary Care Provider [phone] Encounter Details Date Type Department Care Team (Late st Contact Info) Description 09/06/2024 Lab Requisition [facility] - Main Lab [address] [facility] [place] [address] Regis Wahl MD 38 [facility] [address] [place], [address] Unspecified inflammatory spondylopathy, cervical region (CMS/HCC V24); Acute cystitis without hematuria; Other intra-abdominal and pelvic swelling, mass and lump; Methicillin resistant Staphylococcus aureus infection as the cause of diseases classified elsewhere Social History Tobacco Use Types Packs/Day Years [...] Associated Diagnosis Comments COMPLETE BLOOD COUNT Routine 09/07/2024 8:42 AM EDT Unspecified inflammatory spondylopathy, cervical region (CMS/HCC) Acute cystitis without hematuria Other intra-abdominal and pelvic swelling, mass and lump Methicillin resistant Staphylococcus aureus infection as the cause of diseases classified elsewhere C-REACTIVE PROTEIN Routine 09/07/2024 8: 42 AM EDT Unspecified inflammatory spondylopathy, cervical region (CMS/HCC) Acute cystitis without hematuria Other intra-abdominal and pelvic swelling, mass and lump Methicillin resistant Staphylococcus aureus infection as the cause of diseases classified elsewhere COMPREHENSIVE METABOLIC PANEL Routine 09/07/2024 8:42 AM EDT Unspecified inflammatory spondylopathy, cervical region (CMS/HCC) Acute cystitis without hematuria Other intra-abdominal and pelvic swelling, mass and lump Methicillin resistant Staphylococcus aureus infection as the cause of diseases classified elsewhere documented in this encounter Results * (ABNORMAL) Comprehensive metabolic panel (09/07/2024 8:42 AM EDT) Sodium 133 133 - 145 mmol/L LAB CHEMISTRY METHOD 09/07/2024 12:32 PM [facility] Potassium 4.3 3.5 - 5.5 mmol/L LAB CHEMISTRY METHOD 09/07/2024 12:32 PM [facility] Chloride 98 96 - 110 mmol/L LAB CHEMISTRY METHOD 09/07/2024 12:32 PM [facility] CO2 28 21 - 32 mmol/L LAB CHEMISTRY METHOD 09/07/2024 12:32 PM [facility] Anion Gap 7 3 - 11 LAB CHEMISTRY METHOD 09/07/2024 12:32 PM [facility] Glucose 97 70 - 100 mg/dL LAB CHEMISTRY METHOD 09/07/2024 12:32 PM [facility] BUN 23 5 - 25 mg/dL LAB CHEMISTRY METHOD 09/07/2024 12:32 PM [facility] Creatinine 1.37(H) 0.70 - 1.30 mg/dL LAB CHEMISTRY METHOD 09/07/2024 12:32 PM [facility] LAB eGFR 50(L) >=60 mL/min/1. 73m2 LAB CHEMISTRY METHOD 09/07/2024 12:32 PM [facility] LAB Comment:Calculation based on the Chronic Kidney Disease Epidemiology Collaboration (CKD-EPI) equation refit without adjustment for race. BUN/Creatinine Ratio 16.8 LAB CHEMISTRY METHOD 09/07/2024 12:32 PM [facility] Calcium 8.7 8.5 - 10.5 mg/dL LAB CHEMISTRY METHOD 09/07/2024 12:32 PM EDT [facility] AST (SGOT) 21 10 - 42 unit/L LAB CHEMISTRY METHOD 09/07/2024 12:32 PM EDT [facility] ALT (SGPT) 18 10 - 60 unit/L LAB CHEMISTRY METHOD 09/07/2024 12:32 PM EDT [facility] LAB Alkaline Phosphatase 92 42 - 121 unit/L LAB CHEMISTRY METHOD 09/07/2024 12:32 PM EDT [facility] Total Protein 6.3 6.0 - 8.0 g/dL LAB CHEMISTRY METHOD 09/07/2024 12:32 PM EDT [facility] Albumin 2.7(L) 3.2 - 5.0 g/dL LAB CHEMISTRY METHOD 09/07/2024 12:32 PM EDT [facility] Total Bilirubin 0.4 0.0 - 1.4 mg/dL LAB CHEMISTRY METHOD 09/07/2024 12:32 PM EDT [facility] LAB Blood Venous blood specimen / Unknown Venipuncture / Unknown 09/07/2024 8:42 AM EDT 09/07/2024 10:26 AM EDT us Regis Wahl MD LAB BLOOD ORDERABLES Final Resul t [facility] [address] [place] [address], * (ABNORMAL) C-reactive protein (09/07/2024 8:42 AM EDT) C-Reactive Protein 3.09(H) <=0.50 mg/dL LAB CHEMISTRY METHOD 09/07/2024 12:33 PM EDT [facility] LAB Blood Venous blood specimen / Unknown Venipuncture / Unknown 09/07/2024 8:42 AM EDT 09/07/2024 10:26 AM EDT us Regis Wahl MD LAB BLOOD ORDERABLES Final Resul t [facility] [address] [place] [address], * (ABNORMAL) Complete blood count (09/07/2024 8:42 AM EDT) WBC 6.1 4.8 - 10.8 K/mcL LAB HEMETOLOGY METHOD 09/07/2024 11:11 AM EDT [facility] RBC 3.20(L) 4.50 - 5.50 M/mcL LAB HEMETOLOGY METHOD 09/07[facility]2024 [facility] Hemoglobin 9.2(L) 13.5 - 17.5 g/dL LAB HEMETOLOGY METHOD 09/07/2024 11:11 AM [facility] Hematocrit 29.2(L) 42.0 - 54.0 % LAB HEMETOLOGY METHOD 09/07/2024 11:11 [facility] MCV 92.1 79.0 - 98.0 FL LAB HEMETOLOGY METHOD 09/07/2024 11:11 AM [facility] MCH 29.0 27.0 - 32.0 pcg LAB HEMETOLOGY METHOD 09/07/2024 11:11 AM EDT [facility] MCHC 31.5(L) 32.0 - 37.0 g/dL LAB HEMETOLOGY METHOD 09/07/2024 11:11 AM [facility] RDW 15.3(H) 11.0 - 15.0 % LAB HEMETOLOGY METHOD 09/07/2024 11:11 AM [facility] Platelets 348 130 - 400 K/mcL LAB HEMETOLOGY METHOD 09/07/2024 11:11 AM EDT [facility] MPV 11.0 7.0 - 11.0 FL LAB HEMETOLOGY METHOD 09/07/2024 11:11 AM EDT [facility] NRBC 0.0 <1.0 % LAB HEMETOLOGY METHOD 09/07/2024 11:11 AM EDT [facility] NRBC Absolute 0.00 <0.10 K/mcL LAB HEMETOLOGY METHOD 09/07/2024 11:11 AM EDT [facility] Blood Venous blood specimen / Unknown Venipuncture / Unknown 09/07/2024 8:42 AM EDT 09/07/2024 10:26 AM EDT us Regis Wahl MD LAB BLOOD ORDERABLES Final Resul t [facility] [address] [place] [address], documented in this encounter Visit Diagnoses Diagnosis Unspecified inflammatory spondylopathy, cervical region (CMS/HCC V24) Acute cystitis without hematuria Other intra-abdominal and pelvic swelling, mass and lump Methicillin resistant Staphylococcus aureus infection as the cause of diseases classified elsewhere documented in this encounter Care Teams Shipper Receiver Relationship Specialty Start Date End Date Regis Wahl MD [address] [place] [address] [address] [place], [address] PCP - General Family Medicine 08/24/24 documented as of this encounter
--- OUTSIDE RECORDS SUMMARY | 2025-04-23 16:26 | XMS_ITS | Encounter Summary ---
Author Organization [facility] Address [address] [place] [address] Care Team Providers Care Lithograph Operator Name Role Phone Regis Wahl MD Primary Care Provider [phone] Encounter Details Date Type Department Care Team (Late st Contact Info) Description 09/25/2024 Lab Requisition [facility] - Main Lab [address] [facility] [email or web address] [address] Regis Wahl MD [address] [facility] [address] [place], [address] Urinary tract infection, site not specified; Atherosclerotic heart disease of [place] coronary artery without angina pectoris; Methicillin resistant Staphylococcus aureus infection as the cause of diseases classified elsewhere; Acute kidney failure, unspecified (CMS/HCC V24) Social History Tobacco Use Types Packs/Day Years [...] Associated Diagnosis Comments COMPLETE BLOOD COUNT Routine 09/26/2024 5:19 AM EDT Urinary tract infection, site not specified Atherosclerotic heart disease of [place] coronary artery without angina pectoris Methicillin resistant Staphylococcus aureus infection as the cause of diseases classified elsewhere Acute kidney failure, unspecified (CMS/HCC V24) BASIC METABOLIC PANEL Routine 09/26/2024 5:19 AM EDT Urinary tract infection, site not specified Atherosclerotic heart disease of [place] coronary artery without angina pectoris Methicillin resistant Staphylococcus aureus infection as the cause of diseases classified elsewhere Acute kidney failure, unspecified (CMS/HCC V24) documented in this encounter Results * (ABNORMAL) Basic metabolic panel (09/26/2024 5:19 AM EDT) Sodium 136 133 - 145 mmol/L LAB CHEMISTRY METHOD 09/26/2024 12:26 PM [facility] Potassium 4.4 3.5 - 5.5 mmol/L LAB CHEMISTRY METHOD 09/26/2024 12:26 PM [facility] Chloride 105 96 - 110 mmol/L LAB CHEMISTRY METHOD 09/26/2024 12:26 PM [facility] CO2 27 21 - 32 mmol/L LAB CHEMISTRY METHOD 09/26/2024 12:26 PM [facility] Anion Gap 4 3 - 11 LAB CHEMISTRY METHOD 09/26/2024 12:26 PM [facility] Glucose 70 70 - 100 mg/dL LAB CHEMISTRY METHOD 09/26/2024 12:26 PM [facility] BUN 34(H) 5 - 25 mg/dL LAB CHEMISTRY METHOD 09/26/2024 12:26 PM [facility] Creatinine 1.27 0.70 - 1.30 mg/dL LAB CHEMISTRY METHOD 09/26/2024 12:26 PM [facility] eGFR 54(L) >=60 mL/min/1. 73m2 LAB CHEMISTRY METHOD 09/26/2024 12:26 PM [facility] Comment:Calculation based on the Chronic Kidney Disease Epidemiology Collaboration (CKD-EPI) equation refit without adjustment for race. BUN/Creatinine Ratio 26.8 LAB CHEMISTRY METHOD 09/26/2024 12:26 PM [facility] Calcium 8.4(L) 8.5 - 10.5 mg/dL LAB CHEMISTRY METHOD 09/26/2024 12:26 PM [facility] Blood Venous blood specimen / Unknown Venipuncture / Unknown 09/26/2024 5:19 AM EDT 09/26/2024 11:19 AM EDT us Regis Wahl MD LAB BLOOD ORDERABLES Final Resul t [facility] [address] [place] [address], * (ABNORMAL) Complete blood count (09/26/2024 5:19 AM EDT) WBC 6.4 4.8 - 10.8 K/mcL LAB HEMETOLOGY METHOD 09/26/2024 11:30 AM EDT [facility] RBC 2.40(L) 4.50 - 5.50 M/mcL LAB HEMETOLOGY METHOD 09/26/2024 11:30 AM EDT [facility] Hemoglobin 6.7(L) 13.5 - 17.5 g/dL LAB HEMETOLOGY METHOD [facility]24 [facility] Hematocrit 22.1(L) 42.0 - 54.0 % LAB HEMETOLOGY METHOD 09/26/2024 11:30 AM EDT [facility] MCV 93.6 79.0 - 98.0 FL LAB HEMETOLOGY METHOD 09/26/2024 11:[facility] MCH 28.4 27.0 - 32.0 pcg LAB HEMETOLOGY METHOD 09/26/2024 11:[facility] MCHC 30.3(L) 32.0 - 37.0 g/dL LAB HEMETOLOGY METHOD 09/26/2024 11:[facility] RDW 16.7(H) 11.0 - 15.0 % LAB HEMETOLOGY METHOD 09/26/2024 11:[facility] Platelets 270 130 - 400 K/mcL LAB HEMETOLOGY METHOD 09/26/2024 11:30 AM EDT [facility] MPV 11.3(H) 7.0 - 11.0 FL LAB HEMETOLOGY METHOD 09/26/2024 11:30 AM EDT [facility] NRBC 0.0 <1.0 % [facility] 09/26/2024 11:30 AM EDT [facility] NRBC Absolute 0.00 <0.10 K/mcL LAB HEMETOLOGY METHOD 09/26/2024 11:30 AM EDT [facility] Blood Venous blood specimen / Unknown Venipuncture / Unknown 09/26/2024 5:19 AM EDT 09/26/2024 11:19 AM EDT us Regis Wahl MD LAB BLOOD ORDERABLES Final Resul t [facility] [address] [place] [address], documented in this encounter Visit Diagnoses Diagnosis Urinary tract infection, site not specified Atherosclerotic heart disease of [place] coronary artery without angina pectoris Methicillin resistant Staphylococcus aureus infection as the cause of diseases classified elsewhere Acute kidney failure, unspecified (CMS/HCC V24) Acute kidney failure, unspecified documented in this encounter Care Teams Lithograph Operator Relationship Specialty Start Date End Date Regis Wahl MD [address] [place] [address], [phone] PCP - General Family Medicine 08/24/24 documented as of this encounter
--- OUTSIDE RECORDS SUMMARY | 2025-04-23 16:26 | XMS_ITS | Encounter Summary ---
Author Organization [facility] Address [address] [place] [address] Care Team Providers Care Outside Production Inspector Name Role Phone Regis Wahl MD Primary Care Provider [phone] Encounter Details Date Type Department Care Team (Late st Contact Info) Description 09/24/2024 Lab Requisition [facility] - Main Lab [address] [place] [address] Regis Wahl MD 38 [facility] [address] [place], [phone] Anemia, unspecified Social History Tobacco Use Types Packs/Day Years [...] Associated Diagnosis Comments COMPLETE BLOOD COUNT Routine 09/24/2024 5:47 AM EDT Anemia, unspecified C-REACTIVE PROTEIN Routine 09/24/2024 5: 47 AM EDT Anemia, unspecified COMPREHENSIVE METABOLIC PANEL Routine 09/24/2024 5:47 AM EDT Anemia, unspecified documented in this encounter Results * (ABNORMAL) C-reactive protein (09/24/2024 5:47 AM EDT) C-Reactive Protein 0.66(H) <=0.50 mg/dL LAB CHEMISTRY METHOD 09/24/2024 11:48 AM EDT [facility] Blood Venous blood specimen / Unknown Venipuncture / Unknown 09/24/2024 5:47 AM EDT 09/24/2024 9:48 AM EDT us Regis Wahl MD LAB BLOOD ORDERABLES Final Resul t [facility] [address] [place] [address], [place] [phone] * (ABNORMAL) Comprehensive metabolic panel (09/24/2024 5:47 AM EDT) Sodium 138 133 - 145 mmol/L LAB CHEMISTRY METHOD 09/24/2024 11:48 AM [facility] Potassium 4.6 3.5 - 5.5 mmol/L LAB CHEMISTRY METHOD 09/24/2024 11:48 AM [facility] Chloride 105 96 - 110 mmol/L LAB CHEMISTRY METHOD 09/24/2024 11:48 AM [facility] CO2 27 21 - 32 mmol/L LAB CHEMISTRY METHOD 09/24/2024 11:48 AM [facility] Anion Gap 6 3 - 11 LAB CHEMISTRY METHOD 09/24/2024 11:48 AM [facility] Glucose 68(L) 70 - 100 mg/dL LAB CHEMISTRY METHOD 09/24/2024 11:48 AM [facility] BUN 31(H) 5 - 25 mg/dL LAB CHEMISTRY METHOD 09/24/2024 11:48 AM [facility] Creatinine 1.15 0.70 - 1.30 mg/dL LAB CHEMISTRY METHOD 09/24/2024 11:48 AM [facility] eGFR 61 >=60 mL/min/1. 73m2 LAB CHEMISTRY METHOD 09/24/2024 11:48 AM [facility] LAB Comment:Calculation based on the Chronic Kidney Disease Epidemiology Collaboration (CKD-EPI) equation refit without adjustment for race. BUN/Creatinine Ratio 27.0 LAB CHEMISTRY METHOD 09/24/2024 11:48 AM T [facility] Calcium 8.5 8.5 - 10.5 mg/dL LAB CHEMISTRY METHOD 09/24/2024 11:48 AM [facility] AST (SGOT) 21 10 - 42 unit/L LAB CHEMISTRY METHOD 09/24/2024 11:48 AM [facility] ALT (SGPT) 19 10 - 60 unit/L LAB CHEMISTRY METHOD 09/24/2024 11:48 AM T [facility] Alkaline Phosphatase 81 42 - 121 unit/L LAB CHEMISTRY METHOD 09/24/2024 11:48 AM [facility] Total Protein 5.4(L) 6.0 - 8.0 g/dL LAB CHEMISTRY METHOD 09/24/2024 11:48 AM [facility] Albumin 2.3(L) 3.2 - 5.0 g/dL LAB CHEMISTRY METHOD 09/24/2024 11:48 AM [facility] Total Bilirubin 0.4 0.0 - 1.4 mg/dL LAB CHEMISTRY METHOD 09/24/2024 11:48 AM [facility] Blood Venous blood specimen / Unknown Venipuncture / Unknown 09/24/2024 5:47 AM EDT 09/24/2024 9:48 AM EDT us Regis Wahl MD LAB BLOOD ORDERABLES Final Resul t [facility] [address] [place] [address], * (ABNORMAL) Complete blood count (09/24/2024 5:47 AM EDT) WBC 7.6 4.8 - 10.8 K/mcL LAB HEMETOLOGY METHOD 09/24/2024 11:26 AM EDT [facility] RBC 2.70(L) 4.50 - 5.50 M/mcL LAB HEMETOLOGY METHOD 09/24/2024 11:26 AM [facility] Hemoglobin 7.6(L) 13.5 - 17.5 g/dL LAB HEMETOLOGY METHOD 09/24/2024 11:26 AM [facility] Hematocrit 25.1(L) 42.0 - 54.0 % LAB HEMETOLOGY METHOD 09/24/2024 11:26 AM [facility] MCV 92.6 79.0 - 98.0 FL LAB HEMETOLOGY METHOD 09/24/2024 11:26 AM [facility] MCH 28.0 27.0 - 32.0 pcg LAB HEMETOLOGY METHOD 09/24/2024 11:26 AM [facility] MCHC 30.3(L) 32.0 - 37.0 g/dL LAB HEMETOLOGY METHOD 09/24/2024 11:26 AM [facility] RDW 16.5(H) 11.0 - 15.0 % LAB HEMETOLOGY METHOD 09/24/2024 11:26 AM [facility] Platelets 324 130 - 400 K/mcL LAB HEMETOLOGY METHOD 09/24/2024 11:26 AM [facility] MPV 10.8 7.0 - 11.0 FL LAB HEMETOLOGY METHOD 09/24/2024 11:26 AM [facility] NRBC 0.0 <1.0 % LAB HEMETOLOGY METHOD 09/24/2024 11:26 AM [facility] NRBC Absolute 0.00 <0.10 K/mcL LAB HEMETOLOGY METHOD 09/24/2024 11:26 AM [facility] Blood Venous blood specimen / Unknown Venipuncture / Unknown 09/24/2024 5:47 AM EDT 09/24/2024 9:48 AM EDT us Regis Wahl MD LAB BLOOD ORDERABLES Final Resul t [facility] [address] [place] [address], documented in this encounter Visit Diagnoses Diagnosis Anemia, unspecified documented in this encounter Care Teams Outside Production Inspector Relationship Specialty Start Date End Date Regis Wahl MD [address] [place] [address] [address] [place], [phone] PCP - General Family Medicine 08/24/24 documented as of this encounter
--- OUTSIDE RECORDS SUMMARY | 2025-04-23 16:27 | XMS_ITS | Clinical Summary ---
Author Organization [address] Address [address] [place] [address] Phone Care Team Providers Care Pasting Inspector Name Role Phone Regis Wahl MD Primary Care Provider [phone] Social History Tobacco Use Types Packs/Day Years Used Date Smoking Tobacco: Never Assessed Sex and Gender Information Value Date Recorded Sex Assigned at Not on file Legal Sex Male 8:52 PM EST Gender Identity Not on file Sexual Orientation Not on file Plan of Treatment Health Maintenance Due Date Last Done Comments DTaP,Tdap,and Td Vaccines (1 - Tdap) 1955 Pneumococcal Vaccine: 50+ Years (1 of 1 - PCV) 1986 Zoster Vaccines (1 of 2) 1986 RSV Immunization Adult Patients (1 - 1-dose 75+ series) 2011 Cholesterol Screening (Lipid Panel) 07/08/2023 Falls Risk Assessment 07/08/2023 Medicare Annual Wellness Visit 07/08/2023 Social Influencers of Health Screening 07/08/2023 Depression Screening 06/13/2024 COVID-19 Vaccine ( season) 2025 Influenza Vaccine (#1) 2025 Hypertension/CHF/CAD Annual BMP Blood Test 10/03/2025 10/03/2024, 10/01/2024, 09/28/2024, Additional history exists HIB Vaccines Aged Out No longer eligi ble based on patient's age to complete this topic HPV Vaccines Aged Out No longer eligi ble based on patient's age to complete this topic Hepatitis A Vaccines Aged Out No long er eligible based on patient's age to complete this topic Hepatitis B Vaccines Aged Out No long er eligible based on patient's age to complete this topic IPV Vaccines Aged Out No longer eligi ble based on patient's age to complete this topic MMR Vaccines Aged Out No longer eligi ble based on patient's age to complete this topic Meningococcal ACWY Vaccine Aged Out N o longer eligible based on patient's age to complete this topic Meningococcal B Vaccine Aged Out No l onger eligible based on patient's age to complete this topic RSV Immunization Patients Under 20 months Aged Out No longer eligible based on patient's age to complete this topic Varicella Vaccines Aged Out No longer eligible based on patient's age to complete this topic Procedures Procedure Name Priority Date/Time Associated Diagnosis Comments COMPREHENSIVE METABOLIC PANEL Routine 10/03/2024 7:42 AM EDT Urinary tract infection, site not specified Atherosclerotic heart disease of [place] coronary artery without angina pectoris from Last 3 Months or Most Recently Relevant to Health Maintenance Results * (ABNORMAL) Comprehensive metabolic panel (10/03/2024 7:42 AM EDT) Sodium 136 133 - 145 mmol/L LAB CHEMISTRY METHOD 10/03/2024 12:19 PM [facility] Potassium 4.0 3.5 - 5.5 mmol/L LAB CHEMISTRY METHOD 10/03/2024 12:19 PM [facility] Chloride 105 96 - 110 mmol/L LAB CHEMISTRY METHOD 10/03/2024 12:19 PM [facility] CO2 27 21 - 32 mmol/L LAB CHEMISTRY METHOD 10/03/2024 12:19 PM [facility] Anion Gap 4 3 - 11 LAB CHEMISTRY METHOD 10/03/2024 12:19 PM [facility] Glucose 68(L) 70 - 100 mg/dL LAB CHEMISTRY METHOD 10/03/2024 12:19 PM [facility] BUN 28(H) 5 - 25 mg/dL LAB CHEMISTRY METHOD 10/03/2024 12:19 PM [facility] Creatinine 1.09 0.70 - 1.30 mg/dL LAB CHEMISTRY METHOD 10/03/2024 12:19 PM [facility] eGFR 65 >=60 mL/min/1. 73m2 LAB CHEMISTRY METHOD 10/03/2024 12:19 PM [facility] Comment:Calculation based on the Chronic Kidney Disease Epidemiology Collaboration (CKD-EPI) equation refit without adjustment for race. BUN/Creatinine Ratio 25.7 LAB CHEMISTRY METHOD 10/03/2024 12:19 PM [facility] Calcium 8.2(L) 8.5 - 10.5 mg/dL LAB CHEMISTRY METHOD 10/03/2024 12:19 PM [facility] AST (SGOT) 14 10 - 42 unit/L LAB CHEMISTRY METHOD 10/03/2024 12:19 PM [facility] ALT (SGPT) 14 10 - 60 unit/L LAB CHEMISTRY METHOD 10/03/2024 12:19 PM [facility] Alkaline Phosphatase 82 42 - 121 unit/L LAB CHEMISTRY METHOD 10/03/2024 12:19 PM [facility] Total Protein 5.2(L) 6.0 - 8.0 g/dL LAB CHEMISTRY METHOD 10/03/2024 12:19 PM [facility] Albumin 2.4(L) 3.2 - 5.0 g/dL LAB CHEMISTRY METHOD 10/03/2024 12:19 PM [facility] Total Bilirubin 0.3 0.0 - 1.4 mg/dL LAB CHEMISTRY METHOD 10/03/2024 12:19 PM [facility] Blood Venous blood specimen / Unknown Venipuncture / Unknown 10/03/2024 7:42 AM EDT 10/03/2024 11:21 AM EDT us Regis Wahl MD LAB BLOOD ORDERABLES Final Resul t [facility] [address] [place] [address], from Last 3 Months or Most Recently Relevant to Health Maintenance Insurance MEDICARE Care Teams Pasting Inspector Relationship Specialty Start Date End Date Regis Wahl MD [address] [place] [address], [phone] PCP - General Family Medicine 08/24/24
--- OUTSIDE RECORDS SUMMARY | 2025-04-23 16:27 | XMS_ITS | Encounter Summary ---
Author Organization [facility] Address [address] [place] [address] Care Team Providers Care Supervisor Dials Name Role Phone Regis Wahl MD Primary Care Provider [phone] Encounter Details Date Type Department Care Team (Late st Contact Info) Description 09/20/2024 Lab Requisition [facility] - Main Lab [address] [facility] [place] [address] Regis Wahl MD 38 [facility] [address] [place], [phone] Unspecified inflammatory spondylopathy, cervical region (CMS/HCC [...] Associated Diagnosis Comments COMPLETE BLOOD COUNT Routine 09/21/2024 8:26 AM EDT Unspecified inflammatory spondylopathy, cervical region (CMS/HCC V24) Acute cystitis without hematuria Other intra-abdominal and pelvic swelling, mass and lump Methicillin resistant Staphylococcus aureus infection as the cause of diseases classified elsewhere C-REACTIVE PROTEIN Routine 09/21/2024 8: 26 AM EDT Unspecified inflammatory spondylopathy, cervical region (CMS/HCC V24) Acute cystitis without hematuria Other intra-abdominal and pelvic swelling, mass and lump Methicillin resistant Staphylococcus aureus infection as the cause of diseases classified elsewhere COMPREHENSIVE METABOLIC PANEL Routine 09/21/2024 8:26 AM EDT Unspecified inflammatory spondylopathy, cervical region (CMS/[facility] V24) Acute cystitis without hematuria Other intra-abdominal and pelvic swelling, mass and lump Methicillin resistant Staphylococcus aureus infection as the cause of diseases classified elsewhere documented in this encounter Results * (ABNORMAL) Comprehensive metabolic panel (09/21/2024 8:26 AM EDT) Sodium 137 133 - 145 mmol/L LAB CHEMISTRY METHOD 09/21/2024 11:14 AM [facility] Potassium 4.7 3.5 - 5.5 mmol/L LAB CHEMISTRY METHOD 09/21/2024 11:14 AM [facility] Chloride 103 96 - 110 mmol/L LAB CHEMISTRY METHOD 09/21/2024 11:14 AM [facility] CO2 31 21 - 32 mmol/L LAB CHEMISTRY METHOD 09/21/2024 11:14 AM [facility] Anion Gap 3 3 - 11 LAB CHEMISTRY METHOD 09/21/2024 11:14 AM [facility] Glucose 75 70 - 100 mg/dL LAB CHEMISTRY METHOD 09/21/2024 11:14 AM [facility] BUN 36(H) 5 - 25 mg/dL LAB CHEMISTRY METHOD 09/21/2024 11:14 AM [facility] Creatinine 1.20 0.70 - 1.30 mg/dL LAB CHEMISTRY METHOD 09/21/2024 11:14 AM [facility] eGFR 58(L) >=60 mL/min/1. 73m2 LAB CHEMISTRY METHOD 09/21/2024 11:14 AM [facility] Comment:Calculation based on the Chronic Kidney Disease Epidemiology Collaboration (CKD-EPI) equation refit without adjustment for race. BUN/Creatinine Ratio 30.0 LAB CHEMISTRY METHOD 09/21/2024 11:14 AM [facility] Calcium 8.9 8.5 - 10.5 mg/dL LAB CHEMISTRY METHOD 09/21/2024 11:14 AM [facility] AST (SGOT) 22 10 - 42 unit/L LAB CHEMISTRY METHOD 09/21/2024 11:14 AM [facility] ALT (SGPT) 17 10 - 60 unit/L LAB CHEMISTRY METHOD 09/21/2024 11:14 AM [facility] Alkaline Phosphatase 82 42 - 121 unit/L LAB CHEMISTRY METHOD 09/21/2024 11:14 AM [facility] Total Protein 5.7(L) 6.0 - 8.0 g/dL LAB CHEMISTRY METHOD 09/21/2024 11:14 AM [facility] Albumin 2.3(L) 3.2 - 5.0 g/dL LAB CHEMISTRY METHOD 09/21/2024 11:14 AM [facility] Total Bilirubin 0.4 0.0 - 1.4 mg/dL LAB CHEMISTRY METHOD 09/21/2024 11:14 AM [facility] Blood Venous blood specimen / Unknown Venipuncture / Unknown 09/21/2024 8:26 AM EDT 09/21/2024 9:51 AM EDT us Regis Wahl MD LAB BLOOD ORDERABLES Final Resul t [facility] [address] [place] [address], * (ABNORMAL) C-reactive protein (09/21/2024 8:26 AM EDT) C-Reactive Protein 0.76(H) <=0.50 mg/dL LAB CHEMISTRY METHOD 09/21/2024 11:17 AM [facility] Blood Venous blood specimen / Unknown Venipuncture / Unknown 09/21/2024 8:26 AM EDT 09/21/2024 9:51 AM EDT us Regis Wahl MD LAB BLOOD ORDERABLES Final Resul t [facility] [address] [place] [address], [place] [phone] * (ABNORMAL) Complete blood count (09/21/2024 8:26 AM EDT) WBC 10.6 4.8 - 10.8 K/mcL LAB HEMETOLOGY METHOD 09/21/2024 10:45 AM EDT [facility] RBC 2.70(L) 4.50 - 5.50 M/mcL LAB HEMETOLOGY METHOD 09/21/2024 10:45 AM EDT [facility] Hemoglobin 7.8(L) 13.5 - 17.5 g/dL LAB HEMETOLOGY METHOD 09/21/2024 10:45 AM EDT [facility] Hematocrit 24.9(L) 42.0 - 54.0 % LAB HEMETOLOGY METHOD 09/21/2024 10:45 AM EDT [facility] MCV 91.5 79.0 - 98.0 FL LAB HEMETOLOGY METHOD 09/21/2024 10:45 AM EDT [facility] MCH 28.7 27.0 - 32.0 pcg LAB HEMETOLOGY METHOD 09/21/2024 10:45 AM EDT [facility] MCHC 31.3(L) 32.0 - 37.0 g/dL LAB HEMETOLOGY METHOD 09/21/2024 10:45 AM EDT [facility] RDW 15.9(H) 11.0 - 15.0 % LAB HEMETOLOGY METHOD 09/21[facility]2024 [facility] Platelets 377 130 - 400 K/mcL LAB HEMETOLOGY METHOD 09/21/2024 10:45 AM EDT [facility] MPV 10.5 7.0 - 11.0 FL LAB HEMETOLOGY METHOD 09/21/2024 10:45 AM EDT [facility] NRBC 0.0 <1.0 % LAB HEMETOLOGY METHOD 09/21/2024 10:45 AM EDT [facility] NRBC Absolute 0.00 <0.10 K/mcL LAB HEMETOLOGY METHOD 09/21/2024 10:45 AM EDT [facility] Blood Venous blood specimen / Unknown Venipuncture / Unknown 09/21/2024 8:26 AM EDT 09/21/2024 9:51 AM EDT us Regis Wahl MD LAB BLOOD ORDERABLES Final Resul t [facility] [address] [place] [address], documented in this encounter Visit Diagnoses Diagnosis Unspecified inflammatory spondylopathy, cervical region (CMS/HCC V24) Acute cystitis without hematuria Other intra-abdominal and pelvic swelling, mass and lump Methicillin resistant Staphylococcus aureus infection as the cause of diseases classified elsewhere documented in this encounter Care Teams Supervisor Dials Relationship Specialty Start Date End Date Regis Wahl MD [address] [place] [address] [address] [place], [phone] PCP - General Family Medicine 08/24/24 documented as of this encounter
--- OUTSIDE RECORDS SUMMARY | 2025-04-23 16:27 | XMS_ITS | Encounter Summary ---
Author Organization [facility] Address [address] [place] [address] Care Team Providers Care Fuels Sales Representative Name Role Phone Regis Wahl MD Primary Care Provider [phone] Encounter Details Date Type Department Care Team (Late st Contact Info) Description 08/30/2024 Lab Requisition [facility] - Main Lab [address] [facility] [place] [address] Regis Wahl MD 38 [facility] [address] [place], [address] Unspecified inflammatory spondylopathy, cervical region (CMS/HCC [...] Associated Diagnosis Comments COMPLETE BLOOD COUNT Routine 08/31/2024 5:36 AM EDT Unspecified inflammatory spondylopathy, cervical region (CMS/HCC) Acute cystitis without hematuria Other intra-abdominal and pelvic swelling, mass and lump Methicillin resistant Staphylococcus aureus infection as the cause of diseases classified elsewhere C-REACTIVE PROTEIN Routine 08/31/2024 5: 36 AM EDT Unspecified inflammatory spondylopathy, cervical region (CMS/HCC) Acute cystitis without hematuria Other intra-abdominal and pelvic swelling, mass and lump Methicillin resistant Staphylococcus aureus infection as the cause of diseases classified elsewhere COMPREHENSIVE METABOLIC PANEL Routine 08/31/2024 5:36 AM EDT Unspecified inflammatory spondylopathy, cervical region (CMS/HCC) Acute cystitis without hematuria Other intra-abdominal and pelvic swelling, mass and lump Methicillin resistant Staphylococcus aureus infection as the cause of diseases classified elsewhere documented in this encounter Results * (ABNORMAL) Comprehensive metabolic panel (08/31/2024 5:36 AM EDT) Sodium 137 133 - 145 mmol/L LAB CHEMISTRY METHOD 08/31/2024 11:28 AM [facility] Potassium 4.3 3.5 - 5.5 mmol/L LAB CHEMISTRY METHOD 08/31/2024 11:28 AM [facility] Chloride 102 96 - 110 mmol/L LAB CHEMISTRY METHOD 08/31/2024 11:28 AM [facility] CO2 28 21 - 32 mmol/L LAB CHEMISTRY METHOD 08/31/2024 11:28 AM [facility] Anion Gap 7 3 - 11 LAB CHEMISTRY METHOD 08/31/2024 11:28 AM [facility] Glucose 77 70 - 100 mg/dL LAB CHEMISTRY METHOD 08/31/2024 11:28 AM [facility] BUN 16 5 - 25 mg/dL LAB CHEMISTRY METHOD 08/31/2024 11:28 AM [facility] Creatinine 1.06 0.70 - 1.30 mg/dL LAB CHEMISTRY METHOD 08/31/2024 11:28 AM [facility] eGFR 68 >=60 mL/min/1. 73m2 LAB CHEMISTRY METHOD 08/31/2024 11:28 AM [facility] Comment:Calculation based on the Chronic Kidney Disease Epidemiology Collaboration (CKD-EPI) equation refit without adjustment for race. BUN/Creatinine Ratio 15.1 LAB CHEMISTRY METHOD 08/31/2024 11:28 AM [facility] Calcium 8.1(L) 8.5 - 10.5 mg/dL LAB CHEMISTRY METHOD 08/31/2024 11:28 AM EDT [facility] AST (SGOT) 21 10 - 42 unit/L LAB CHEMISTRY METHOD 08/31/2024 11:28 AM EDT [facility] ALT (SGPT) 20 10 - 60 unit/L LAB CHEMISTRY METHOD 08/31/2024 11:28 AM EDT [facility] Alkaline Phosphatase 69 42 - 121 unit/L LAB CHEMISTRY METHOD 08/31/2024 11:28 AM EDT [facility] Total Protein 4.8(L) 6.0 - 8.0 g/dL LAB CHEMISTRY METHOD 08/31/2024 11:28 AM EDT [facility] Albumin 2.1(L) 3.2 - 5.0 g/dL LAB CHEMISTRY METHOD 08/31/2024 11:28 AM EDT [facility] Total Bilirubin 0.3 0.0 - 1.4 mg/dL LAB CHEMISTRY METHOD 08/31/2024 11:28 AM EDT [facility] Blood Venous blood specimen / Unknown Venipuncture / Unknown 08/31/2024 5:36 AM EDT 08/31/2024 9:53 AM EDT us Regis Wahl MD LAB BLOOD ORDERABLES Final Resul t [facility] [address] [place] [address], * (ABNORMAL) C-reactive protein (08/31/2024 5:36 AM EDT) C-Reactive Protein 3.20(H) <=0.50 mg/dL LAB CHEMISTRY METHOD 08/31/2024 11:28 AM EDT [facility] Blood Venous blood specimen / Unknown Venipuncture / Unknown 08/31/2024 5:36 AM EDT 08/31/2024 9:53 AM EDT us Regis Wahl MD LAB BLOOD ORDERABLES Final Resul t [facility] [address] [place] [address], * (ABNORMAL) Complete blood count (08/31/2024 5:36 AM EDT) WBC 5.7 4.8 - 10.8 K/mcL LAB HEMETOLOGY METHOD 08/31/2024 10:03 AM EDT [facility] RBC 2.60(L) 4.50 - 5.50 M/mcL LAB HEMETOLOGY METHOD 08/31/2024 10:03 AM [facility] Hemoglobin 7.6(L) 13.5 - 17.5 g/dL LAB HEMETOLOGY METHOD 08/31/2024 10:03 AM [facility] Hematocrit 24.3(L) 42.0 - 54.0 % LAB HEMETOLOGY METHOD 08/31/2024 10:03 AM [facility] MCV 92.7 79.0 - 98.0 FL LAB HEMETOLOGY METHOD 08/31/2024 10:03 AM [facility] MCH 29.0 27.0 - 32.0 pcg LAB HEMETOLOGY METHOD 08/31/2024 10:03 AM [facility] MCHC 31.3(L) 32.0 - 37.0 g/dL LAB HEMETOLOGY METHOD 08/31/2024 10:03 AM [facility] RDW 15.4(H) 11.0 - 15.0 % LAB HEMETOLOGY METHOD 08/31/2024 10:03 AM [facility] Platelets 347 130 - 400 K/mcL LAB HEMETOLOGY METHOD 08/31/2024 10:03 AM [facility] MPV 10.6 7.0 - 11.0 FL LAB HEMETOLOGY METHOD 08/31/2024 10:03 AM EDT [facility] NRBC 0.0 <1.0 % LAB HEMETOLOGY METHOD 08/31/2024 10:03 AM EDT [facility] NRBC Absolute 0.00 <0.10 K/mcL LAB HEMETOLOGY METHOD 08/31/2024 10:03 AM EDT [facility] Blood Venous blood specimen / Unknown Venipuncture / Unknown 08/31/2024 5:36 AM EDT 08/31/2024 9:53 AM EDT us Regis Wahl MD LAB BLOOD ORDERABLES Final Resul t [facility] [address] [place] [address], documented in this encounter Visit Diagnoses Diagnosis Unspecified inflammatory spondylopathy, cervical region (CMS/HCC V24) Acute cystitis without hematuria Other intra-abdominal and pelvic swelling, mass and lump Methicillin resistant Staphylococcus aureus infection as the cause of diseases classified elsewhere documented in this encounter Care Teams Fuels Sales Representative Relationship Specialty Start Date End Date Regis Wahl MD [address] [place] [address] [address] [place], [phone] PCP - General Family Medicine 08/24/24 documented as of this encounter
--- OUTSIDE RECORDS SUMMARY | 2025-04-23 16:27 | XMS_ITS | Encounter Summary ---
Author Organization [facility] Address [address] [place] [address] Care Team Providers Care Rn Field Case Manager Name Role Phone Regis Wahl MD Primary Care Provider [phone] Encounter Details Date Type Department Care Team (Late st Contact Info) Description 08/24/2024 Lab Requisition [facility] - Main Lab 299 [facility] [place] [address] Regis Wahl MD 38 [facility] [address], [phone] Methicillin resistant Staphylococcus aureus infection as the cause of diseases classified elsewhere; Acute cystitis without hematuria; Other intra-abdominal and pelvic swelling, mass and lump; Unspecified inflammatory spondylopathy, cervical region (CMS/HCC V24) Social History Tobacco Use Types [...] Associated Diagnosis Comments COMPLETE BLOOD COUNT Routine 08/24/2024 8:41 AM EDT Methicillin resistant Staphylococcus aureus infection as the cause of diseases classified elsewhere Acute cystitis without hematuria Other intra-abdominal and pelvic swelling, mass and lump Unspecified inflammatory spondylopathy, cervical region (CMS/HCC) C-REACTIVE PROTEIN Routine 08/24/2024 8: 41 AM EDT Methicillin resistant Staphylococcus aureus infection as the cause of diseases classified elsewhere Acute cystitis without hematuria Other intra-abdominal and pelvic swelling, mass and lump Unspecified inflammatory spondylopathy, cervical region (CMS/HCC) COMPREHENSIVE METABOLIC PANEL Routine 08/24/2024 8:41 AM EDT Methicillin resistant Staphylococcus aureus infection as the cause of diseases classified elsewhere Acute cystitis without hematuria Other intra-abdominal and pelvic swelling, mass and lump Unspecified inflammatory spondylopathy, cervical region (CMS/HCC) documented in this encounter Results * (ABNORMAL) C-reactive protein (08/24/2024 8:41 AM EDT) [facility] C-Reactive Protein 3.26(H) <=0.50 mg/dL LAB CHEMISTRY METHOD 08/24/2024 11:41 AM EDT [facility] Blood Venous blood specimen / Unknown Venipuncture / Unknown 08/24/2024 8:41 AM EDT 08/24/2024 10:34 AM EDT us Regis Wahl MD LAB BLOOD ORDERABLES Final Resul t [facility] [address] [place] [address], [place] [phone] * (ABNORMAL) Comprehensive metabolic panel (08/24/2024 8:41 AM EDT) [facility] Sodium 141 133 - 145 mmol/L LAB CHEMISTRY METHOD 08/24/2024 11:41 AM [facility] Potassium 4.0 3.5 - 5.5 mmol/L LAB CHEMISTRY METHOD 08/24/2024 11:41 AM [facility] Chloride 108 96 - 110 mmol/L LAB CHEMISTRY METHOD 08/24/2024 11:41 AM [facility] CO2 26 21 - 32 mmol/L LAB CHEMISTRY METHOD 08/24/2024 11:41 AM [facility] Anion Gap 7 3 - 11 LAB CHEMISTRY METHOD 08/24/2024 11:41 AM [facility] Glucose 84 70 - 100 mg/dL LAB CHEMISTRY METHOD 08/24/2024 11:41 AM [facility] BUN 19 5 - 25 mg/dL LAB CHEMISTRY METHOD 08/24/2024 11:41 AM [facility] Creatinine 1.11 0.70 - 1.30 mg/dL LAB CHEMISTRY METHOD 08/24/2024 11:41 AM [facility] eGFR 64 >=60 mL/min/1. 73m2 LAB CHEMISTRY METHOD 08/24/2024 11:41 AM [facility] Comment:Calculation based on the Chronic Kidney Disease Epidemiology Collaboration (CKD-EPI) equation refit without adjustment for race. BUN/Creatinine Ratio 17.1 LAB CHEMISTRY METHOD 08/24/2024 11:41 AM [facility] Calcium 7.7(L) 8.5 - 10.5 mg/dL LAB CHEMISTRY METHOD 08/24/2024 11:41 AM [facility] AST (SGOT) 14 10 - 42 unit/L LAB CHEMISTRY METHOD 08/24/2024 11:41 AM [facility] ALT (SGPT) 13 10 - 60 unit/L LAB CHEMISTRY METHOD 08/24/2024 11:41 AM [facility] Alkaline Phosphatase 60 42 - 121 unit/L LAB CHEMISTRY METHOD 08/24/2024 11:41 AM [facility] Total Protein 4.5(L) 6.0 - 8.0 g/dL LAB CHEMISTRY METHOD 08/24/2024 11:41 AM [facility] Albumin 2.0(L) 3.2 - 5.0 g/dL LAB CHEMISTRY METHOD 08/24/2024 11:41 AM [facility] Total Bilirubin 0.3 0.0 - 1.4 mg/dL LAB CHEMISTRY METHOD 08/24/2024 11:41 AM [facility] Blood Venous blood specimen / Unknown Venipuncture / Unknown 08/24/2024 8:41 AM EDT 08/24/2024 10:34 AM EDT us Regis Wahl MD LAB BLOOD ORDERABLES Final Resul t [facility] [address] [place] [address], * (ABNORMAL) Complete blood count (08/24/2024 8:41 AM EDT) WBC 9.5 4.8 - 10.8 K/mcL LAB HEMETOLOGY METHOD 08/24/2024 11:16 AM EDT [facility] RBC 2.90(L) 4.50 - 5.50 M/mcL LAB HEMETOLOGY METHOD 08/24/2024 11:16 AM EDT [facility] Hemoglobin 8.4(L) 13.5 - 17.5 g/dL LAB HEMETOLOGY METHOD 08/24/2024 11:16 AM [facility] Hematocrit 26.7(L) 42.0 - 54.0 % LAB HEMETOLOGY METHOD 08/24/2024 11:16 AM EDT [facility] MCV 92.4 79.0 - 98.0 FL LAB HEMETOLOGY METHOD [facility]24[facility]2024 [facility] MCH 29.1 27.0 - 32.0 pcg LAB HEMETOLOGY METHOD 08/24/2024 11:16 AM EDT [facility] MCHC 31.5(L) 32.0 - 37.0 g/dL LAB HEMETOLOGY METHOD 08/24[facility]2024 [facility] RDW 15.8(H) 11.0 - 15.0 % LAB HEMETOLOGY METHOD 08/24/2024 11:16 AM [facility] Platelets 290 130 - 400 K/mcL LAB HEMETOLOGY METHOD 08/24/2024 11:16 AM EDT [facility] MPV 10.5 7.0 - 11.0 FL LAB HEMETOLOGY METHOD 08/24/2024 11:16 AM EDT [facility] NRBC 0.0 <1.0 % LAB HEMETOLOGY METHOD 08/24/2024 11:16 AM EDT [facility] NRBC Absolute 0.00 <0.10 K/mcL LAB HEMETOLOGY METHOD 08/24/2024 11:16 AM EDT [facility] Blood Venous blood specimen / Unknown Venipuncture / Unknown 08/24/2024 8:41 AM EDT 08/24/2024 10:34 AM EDT us Regis Wahl MD LAB BLOOD ORDERABLES Final Resul t [facility] [address] [place] [address], documented in this encounter Visit Diagnoses Diagnosis Methicillin resistant Staphylococcus aureus infection as the cause of diseases classified elsewhere Acute cystitis without hematuria Other intra-abdominal and pelvic swelling, mass and lump Unspecified inflammatory spondylopathy, cervical region (CMS/HCC V24) documented in this encounter Care Teams Rn Field Case Manager Relationship Specialty Start Date End Date Regis Wahl MD [address] [place] [address] [address], [phone] PCP - General Family Medicine 08/24/24 documented as of this encounter
--- OUTSIDE RECORDS SUMMARY | 2025-04-23 16:27 | XMS_ITS | Encounter Summary ---
Author Organization [facility] Address [address] [place] [address] Care Team Providers Care Corporate Meeting Planner Name Role Phone Regis Wahl MD Primary Care Provider [phone] Encounter Details Date Type Department Care Team (Late st Contact Info) Description 10/01/2024 Lab Requisition [facility] - Main Lab [address] [place] [address] Regis Wahl MD 38 [facility] [address] [place], [phone] Essential (primary) hypertension Social History Tobacco Use Types Packs/Day Years [...] Procedure Name Priority Date/Time Associated Diagnosis Comments CBC WITH AUTO DIFFERENTIAL Routine 10/01/2024 8:10 AM EDT Essential (primary) hypertension CBC AND DIFFERENTIAL Routine 10/01/2024 8:10 AM EDT Essential (primary) hypertension BASIC METABOLIC PANEL Routine 10/01/2024 8:10 AM EDT Essential (primary) hypertension documented in this encounter Results * (ABNORMAL) CBC auto differential (10/01/2024 8:10 AM EDT) [facility] Signature WBC 4.8 4.8 - 10.8 K/[facility] LAB HEMETOLOGY METHOD 10/01/2024 11:07 AM EDT [facility] RBC 2.60(L) 4.50 - 5.50 M/mcL LAB HEMETOLOGY METHOD 10/01/2024 11:[address] [facility] Hemoglobin 7.2(L) 13.5 - 17.5 g/dL LAB HEMETOLOGY METHOD 10/01/2024 11:[address] [facility] Hematocrit 23.7(L) 42.0 - 54.0 % LAB HEMETOLOGY METHOD 10/01/2024 11:[address] [facility] MCV 92.6 79.0 - 98.0 FL LAB HEMETOLOGY METHOD 10/01/2024 11:[address] [facility] MCH 28.1 27.0 - 32.0 pcg LAB HEMETOLOGY METHOD 10/01/2024 11:[address] [facility] MCHC 30.4(L) 32.0 - 37.0 g/dL LAB HEMETOLOGY METHOD 10/01/2024 11:[address] [facility] RDW 17.1(H) 11.0 - 15.0 % LAB HEMETOLOGY METHOD 10/01/2024 11:[address] [facility] Platelets 217 130 - 400 K/mcL LAB HEMETOLOGY METHOD 10/01/2024 11:[address] [facility] MPV 11.6(H) 7.0 - 11.0 FL LAB HEMETOLOGY METHOD 10/01/2024 11:[address] [facility] NRBC 0.0 <1.0 % LAB HEMETOLOGY METHOD 10/01/2024 11:[address] [facility] NRBC Absolute 0.00 <0.10 K/mcL LAB HEMETOLOGY METHOD 10/01/2024 11:[address] [facility] Neutrophils Relative 47.2 % LAB HEMETOLOGY METHOD 10/01/2024 11:[address] [facility] Lymphocytes Relative 32.9 % LAB HEMETOLOGY METHOD 10/01/2024 11:[address] [facility] Monocytes Relative 14.3 % LAB HEMETOLOGY METHOD 10/01/2024 11:[address] [facility] Eosinophils Relative 4.8 % LAB HEMETOLOGY METHOD 10/01/2024 11:[address] [facility] Basophils Relative 0.6 % LAB HEMETOLOGY METHOD 10/01/2024 11:[address] [facility] Immature Granulocytes Relative 0.2 % LAB HEMETOLOGY METHOD 10/01/2024 11:[address] [facility] Neutrophils Absolute 2.29 1.50 - 7.00 K/mcL LAB HEMETOLOGY METHOD 10/01/2024 11:[address] [facility] Lymphocytes Absolute 1.59 1.00 - 5.00 K/mcL LAB HEMETOLOGY METHOD 10/01/2024 11:[address] [facility] Monocytes Absolute 0.69 0.20 - 1.00 K/mcL LAB HEMETOLOGY METHOD 10/01/2024 11:[address] [facility] Eosinophils Absolute 0.23 0.00 - 0.50 K/mcL LAB HEMETOLOGY METHOD 10/01/2024 11:[address] [facility] Basophils Absolute 0.03 0.00 - 0.20 K/mcL LAB HEMETOLOGY METHOD 10/01/2024 11:[address] [facility] Immature Granulocytes Absolute 0.01 0.00 - 0.03 K/mcL LAB HEMETOLOGY METHOD 10/01/2024 11:[address] [facility] Blood Venous blood specimen / Unknown Venipuncture / Unknown 10/01/2024 8:10 AM EDT 10/01/2024 9:22 AM EDT Regis Wahl MD LAB BLOOD ORDERABLES Final Resul t [facility] [address] [place] [address], * (ABNORMAL) Basic metabolic panel (10/01/2024 8:10 AM EDT) Sodium 137 133 - 145 mmol/L LAB CHEMISTRY METHOD 10/01/2024 12:[address] [facility] Potassium 4.2 3.5 - 5.5 mmol/L LAB CHEMISTRY METHOD 10/01/2024 12:[address] [facility] Chloride 105 96 - 110 mmol/L LAB CHEMISTRY METHOD 10/01/2024 12:[address] [facility] CO2 25 21 - 32 mmol/L LAB CHEMISTRY METHOD 10/01/2024 12:[address] [facility] Anion Gap 7 3 - 11 LAB CHEMISTRY METHOD 10/01/2024 12:[address] [facility] Glucose 74 70 - 100 mg/dL LAB CHEMISTRY METHOD 10/01/2024 12:[address] [facility] BUN 29(H) 5 - 25 mg/dL LAB CHEMISTRY METHOD 10/01/2024 12:[address] [facility] Creatinine 1.05 0.70 - 1.30 mg/dL LAB CHEMISTRY METHOD 10/01/2024 12:[address] [facility] eGFR 68 >=60 mL/min/1. 73m2 LAB CHEMISTRY METHOD 10/01/2024 12:[address] [facility] Comment:Calculation based on the Chronic Kidney Disease Epidemiology Collaboration (CKD-EPI) equation refit without adjustment for race. BUN/Creatinine Ratio 27.6 LAB CHEMISTRY METHOD 10/01/2024 12:[address] [facility] Calcium 8.9 8.5 - 10.5 mg/dL LAB CHEMISTRY METHOD 10/01/2024 12:21 PM EDT [facility] Blood Venous blood specimen / Unknown Venipuncture / Unknown 10/01/2024 8:10 AM EDT 10/01/2024 9:22 AM EDT us Regis Wahl MD LAB BLOOD ORDERABLES Final Resul t [facility] [address] [place] [address], documented in this encounter Visit Diagnoses Diagnosis Essential (primary) hypertension Unspecified essential hypertension documented in this encounter Care Teams Corporate Meeting Planner Relationship Specialty Start Date End Date Regis Wahl MD [address] [place] [address], [phone] PCP - General Family Medicine 08/24/24 documented as of this encounter
--- OUTSIDE RECORDS SUMMARY | 2025-04-23 16:27 | XMS_ITS | Encounter Summary ---
Author Organization [facility] Address [address] [place] [address] Care Team Providers Care Franchise Broker Name Role Phone Regis Wahl MD Primary Care Provider [phone] Encounter Details Date Type Department Care Team (Late st Contact Info) Description 09/18/2024 Lab Requisition [facility] - Main Lab [address] [place] [address] Regis Wahl MD 38 [facility] [address] [place], [phone] Urinary tract infection, site not specified; Atherosclerotic heart disease of [place] coronary artery without angina pectoris; Unspecified inflammatory spondylopathy, cervical region (CMS/HCC V24); Hypothyroidism, unspecified; Adult failure to thrive Social History Tobacco Use Types Packs/Day Years [...] Procedure Name Priority Date/Time Associated Diagnosis Comments THYROID STIMULATING HORMONE WITH REFLEX TO FREE T4 AND FREE T3 Routine 09/19/2024 6:02 AM EDT Urinary tract infection, site not specified Atherosclerotic heart disease of [place] coronary artery without angina pectoris Hypothyroidism, unspecified Adult failure to thrive FREE THYROXINE WITH REFLEX TO FREE TRIIODOTHYRONINE Routine 09/19/2024 6:02 AM EDT Urinary tract infection, site not specified Atherosclerotic heart disease of [facility] coronary artery without angina pectoris Hypothyroidism, unspecified Adult failure to thrive COMPLETE BLOOD COUNT Routine 09/19/2024 6:02 AM EDT Urinary tract infection, site not specified Atherosclerotic heart disease of [facility] coronary artery without angina pectoris Hypothyroidism, unspecified Adult failure to thrive TRIIODOTHYRONINE FREE Routine 09/19/2024 6:02 AM EDT Urinary tract infection, site not specified Atherosclerotic heart disease of 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 coronary artery without angina pectoris Hypothyroidism, unspecified Adult failure to thrive documented in this encounter Results * (ABNORMAL) Triiodothyronine free (09/19/2024 6:02 AM EDT) T3, Free 168(L) 230 - 420 pcg/dL LAB CHEMISTRY METHOD 09/20/2024 3:29 PM EDT [facility] Blood Venous blood specimen / Unknown Venipuncture / Unknown 09/19/2024 6:02 AM EDT 09/19/2024 10:55 AM EDT us Regis Wahl MD LAB BLOOD ORDERABLES Final Resul t [facility] [address] [place] [address], [place] [phone] * (ABNORMAL) Free thyroxine with reflex to free triiodothyronine (09/19/2024 6:02 AM EDT) Free T4 0.63(L) 0.70 - 1.80 ng/dL LAB CHEMISTRY METHOD 09/20/2024 3:02 PM EDT [facility] Blood Venous blood specimen / Unknown Venipuncture / Unknown 09/19/2024 6:02 AM EDT 09/19/2024 10:55 AM EDT us Regis Wahl MD LAB BLOOD ORDERABLES Final Resul t Performing Organization Address [facility]/ZIP Co de Phone Number [facility] [address] [place] [address], [place] [phone] * (ABNORMAL) Thyroxine free (09/19/2024 6:02 AM EDT) Free T4 0.63(L) 0.70 - 1.80 ng/dL LAB CHEMISTRY METHOD 09/19/2024 2:06 PM EDT [facility] Blood Venous blood specimen / Unknown Venipuncture / Unknown 09/19/2024 6:02 AM EDT 09/19/2024 10:55 AM EDT us Regis Wahl MD LAB BLOOD ORDERABLES Final Resul t Performing Organization Address [facility] de Phone Number [facility] [address] [place] [address], [place] [phone] * (ABNORMAL) Thyroid stimulating hormone with reflex to free t4 and free t3 (09/19/2024 6:02 AM EDT) TSH 4.22(H) 0.40 - 4.00 mcIU/mL LAB CHEMISTRY METHOD 09/20/2024 2:43 PM EDT [facility] Blood Venous blood specimen / Unknown Venipuncture / Unknown 09/19/2024 6:02 AM EDT 09/19/2024 10:55 AM EDT us Regis Wahl MD LAB BLOOD ORDERABLES Final Resul t Performing Organization Address [facility]/ZIP Co de Phone Number [facility] [address] [place] [address], [place] [phone] * (ABNORMAL) Basic metabolic panel (09/19/2024 6:02 AM EDT) Sodium 138 133 - 145 mmol/L LAB CHEMISTRY METHOD 09/19/2024 12:49 PM [facility] Potassium 4.5 3.5 - 5.5 mmol/L LAB CHEMISTRY METHOD 09/19/2024 12:49 PM [facility] Chloride 101 96 - 110 mmol/L LAB CHEMISTRY METHOD 09/19/2024 12:49 PM [facility] CO2 31 21 - 32 mmol/L LAB CHEMISTRY METHOD 09/19/2024 12:49 PM [facility] Anion Gap 6 3 - 11 LAB CHEMISTRY METHOD 09/19/2024 12:49 PM [facility] Glucose 65(L) 70 - 100 mg/dL LAB CHEMISTRY METHOD 09/19/2024 12:49 PM [facility] BUN 38(H) 5 - 25 mg/dL LAB CHEMISTRY METHOD 09/19/2024 12:49 PM [facility] Creatinine 1.43(H) 0.70 - 1.30 mg/dL LAB CHEMISTRY METHOD 09/19/2024 12:49 PM [facility] eGFR 47(L) >=60 mL/min/1. 73m2 LAB CHEMISTRY METHOD 09/19/2024 12:49 PM [facility] Comment:Calculation based on the Chronic Kidney Disease Epidemiology Collaboration (CKD-EPI) equation refit without adjustment for race. BUN/Creatinine Ratio 26.6 LAB CHEMISTRY METHOD 09/19/2024 12:49 PM [facility] Calcium 8.7 8.5 - 10.5 mg/dL LAB CHEMISTRY METHOD 09/19/2024 12:49 PM [facility] Blood Venous blood specimen / Unknown Venipuncture / Unknown 09/19/2024 6:02 AM EDT 09/19/2024 10:55 AM EDT us Regis Wahl MD LAB BLOOD ORDERABLES Final Resul t [facility] [address] [place] [address], [place] [phone] * (ABNORMAL) Complete blood count (09/19/2024 6:02 AM EDT) WBC 12.2(H) 4.8 - 10.8 K/mcL LAB HEMETOLOGY METHOD 09/19/2024 11:44 AM EDT [facility] RBC 2.80(L) 4.50 - 5.50 M/mcL LAB HEMETOLOGY METHOD 09/19/2024 11:44 AM [facility] Hemoglobin 8.0(L) 13.5 - 17.5 g/dL LAB HEMETOLOGY METHOD 09/19/2024 11:44 AM [facility] Hematocrit 26.4(L) 42.0 - 54.0 % LAB HEMETOLOGY METHOD 09/19/2024 11:44 AM [facility] MCV 94.0 79.0 - 98.0 FL LAB HEMETOLOGY METHOD 09/19/2024 11:44 AM [facility] MCH 28.5 27.0 - 32.0 pcg LAB HEMETOLOGY METHOD 09/19/2024 11:44 AM [facility] MCHC 30.3(L) 32.0 - 37.0 g/dL LAB HEMETOLOGY METHOD 09/19/2024 11:44 AM [facility] RDW 15.9(H) 11.0 - 15.0 % LAB HEMETOLOGY METHOD 09/19/2024 11:44 AM [facility] Platelets 404(H) 130 - 400 K/mcL LAB HEMETOLOGY METHOD 09/19/2024 11:44 AM EDT [facility] MPV 10.1 7.0 - 11.0 FL LAB HEMETOLOGY METHOD 09/19/2024 11:44 AM EDT [facility] NRBC 0.0 <1.0 % LAB HEMETOLOG METHOD 09/19/2024 11:44 AM EDT [facility] NRBC Absolute 0.00 <0.10 K/mcL LAB HEMETOLOGY METHOD 09/19/2024 11:44 AM EDT [facility] Blood Venous blood specimen / Unknown Venipuncture / Unknown 09/19/2024 6:02 AM EDT 09/19/2024 11:12 AM EDT us Regis Wahl MD LAB BLOOD ORDERABLES Final Resul t [facility] [address] [place] [address], documented in this encounter Visit Diagnoses Diagnosis Urinary tract infection, site not specified 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
--- OUTSIDE RECORDS SUMMARY | 2025-04-23 16:27 | XMS_ITS | Encounter Summary ---
Author Organization [facility] Address [address] [place] [address] Care Team Providers Care Oil Distributor Tender Name Role Phone Regis Wahl MD Primary Care Provider [phone] Encounter Details Date Type Department Care Team (Late st Contact Info) Description 10/02/2024 Lab Requisition [facility] - Main Lab [address] [place] [address] Regis Wahl MD 38 [facility] [address] [place], [address] Urinary tract infection, site not specified; Atherosclerotic heart disease of council coronary artery without angina pectoris Social History [...] Associated Diagnosis Comments COMPLETE BLOOD COUNT Routine 10/03/2024 7:42 AM EDT Urinary tract infection, site not specified Atherosclerotic heart disease of council coronary artery without angina pectoris COMPREHENSIVE METABOLIC PANEL Routine 10/03/2024 7:42 AM EDT Urinary tract infection, site not specified Atherosclerotic heart disease of council coronary artery without angina pectoris documented in this encounter Results * (ABNORMAL) Comprehensive metabolic panel (10/03/2024 7:42 AM EDT) Sodium 136 133 - 145 mmol/L LAB CHEMISTRY METHOD 10/03/2024 12:19 PM EDT [facility] Potassium 4.0 3.5 - 5.5 mmol/L LAB CHEMISTRY METHOD 10/03/2024 12:19 PM [facility] Chloride 105 96 - 110 mmol/L LAB CHEMISTRY METHOD 10/03/2024 12:19 PM [facility] CO2 27 21 - 32 mmol/L LAB CHEMISTRY METHOD 10/03/2024 12:19 PM [facility] Anion Gap 4 3 - 11 LAB CHEMISTRY METHOD 10/03/2024 12:19 PM [facility] Glucose 68(L) 70 - 100 mg/dL LAB CHEMISTRY METHOD 10/03/2024 12:19 PM [facility] BUN 28(H) 5 - 25 mg/dL LAB CHEMISTRY METHOD 10/03/2024 12:19 PM [facility] Creatinine 1.09 0.70 - 1.30 mg/dL LAB CHEMISTRY METHOD 10/03/2024 12:19 PM [facility] LAB eGFR 65 >=60 mL/min/1. 73m2 LAB CHEMISTRY METHOD 10/03/2024 12:19 PM [facility] LAB Comment:Calculation based on the Chronic Kidney Disease Epidemiology Collaboration (CKD-EPI) equation refit without adjustment for race. BUN/Creatinine Ratio 25.7 LAB CHEMISTRY METHOD 10/03/2024 12:19 PM [facility] Calcium 8.2(L) 8.5 - 10.5 mg/dL LAB CHEMISTRY METHOD 10/03/2024 12:19 PM [facility] AST (SGOT) 14 10 - 42 unit/L LAB CHEMISTRY METHOD 10/03/2024 12:19 PM [facility] ALT (SGPT) 14 10 - 60 unit/L LAB CHEMISTRY METHOD 10/03/2024 12:19 PM [facility] Alkaline Phosphatase 82 42 - 121 unit/L LAB CHEMISTRY METHOD 10/03/2024 12:19 PM [facility] Total Protein 5.2(L) 6.0 - 8.0 g/dL LAB CHEMISTRY METHOD 10/03/2024 12:19 PM EDT [facility] Albumin 2.4(L) 3.2 - 5.0 g/dL LAB CHEMISTRY METHOD 10/03/2024 12:19 PM EDT [facility] Total Bilirubin 0.3 0.0 - 1.4 mg/dL LAB CHEMISTRY METHOD 10/03/2024 12:19 PM EDT [facility] Blood Venous blood specimen / Unknown Venipuncture / Unknown 10/03/2024 7:42 AM EDT 10/03/2024 11:21 AM EDT us Regis Wahl MD LAB BLOOD ORDERABLES Final Resul t [facility] [address] [place] [address], * (ABNORMAL) Complete blood count (10/03/2024 7:42 AM EDT) WBC 4.9 4.8 - 10.8 K/mcL LAB HEMETOLOGY METHOD 10/03/2024 12:08 PM [facility] RBC 2.50(L) 4.50 - 5.50 M/mcL LAB HEMETOLOGY METHOD 10/03/2024 12:08 PM [facility] Hemoglobin 7.2(L) 13.5 - 17.5 g/dL LAB HEMETOLOGY METHOD 10/03/2024 12:08 PM [facility] Hematocrit 23.2(L) 42.0 - 54.0 % LAB HEMETOLOGY METHOD 10/03/2024 12:08 PM [facility] MCV 92.1 79.0 - 98.0 FL LAB HEMETOLOGY METHOD 10/03/2024 12:08 PM [facility] MCH 28.6 27.0 - 32.0 pcg LAB HEMETOLOGY METHOD 10/03/2024 12:08 PM EDT [facility] MCHC 31.0(L) 32.0 - 37.0 g/dL LAB HEMETOLOGY METHOD 10/03/2024 12:08 PM EDT [facility] RDW 17.2(H) 11.0 - 15.0 % LAB HEMETOLOGY METHOD 10/03/2024 12:08 PM EDT [facility] Platelets 197 130 - 400 K/mcL LAB HEMETOLOGY METHOD 10/03/2024 12:08 PM EDT [facility] MPV 11.4(H) 7.0 - 11.0 FL LAB HEMETOLOGY METHOD 10/03/2024 12:08 PM EDT [facility] NRBC 0.0 <1.0 % LAB HEMETOLOGY METHOD 10/03/2024 12:08 PM EDT [facility] NRBC Absolute 0.00 <0.10 K/mcL LAB HEMETOLOGY METHOD 10/03/2024 12:08 PM EDT [facility] Blood Venous blood specimen / Unknown Venipuncture / Unknown 10/03/2024 7:42 AM EDT 10/03/2024 11:21 AM EDT us Regis Wahl MD LAB BLOOD ORDERABLES Final Resul t [facility] [address] [place] [address], documented in this encounter Visit Diagnoses Diagnosis Urinary tract infection, site not specified Atherosclerotic heart disease of council coronary artery without angina pectoris documented in this encounter Care Teams Oil Distributor Tender Relationship Specialty Start Date End Date Regis Wahl MD [address] [place] [address] [address] [place], [phone] PCP - General Family Medicine 08/24/24 documented as of this encounter
--- OUTSIDE RECORDS SUMMARY | 2025-04-23 16:27 | XMS_ITS | Encounter Summary ---
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); Acute cystitis without hematuria; Other intra-abdominal [...] Associated Diagnosis Comments COMPLETE BLOOD COUNT Routine 09/28/2024 7:08 AM EDT Unspecified inflammatory spondylopathy, cervical region (CMS/HCC V24) Acute cystitis without hematuria Other intra-abdominal and pelvic swelling, mass and lump Methicillin resistant Staphylococcus aureus infection as the cause of diseases classified elsewhere C-REACTIVE PROTEIN Routine 09/28/2024 7: 08 AM EDT Unspecified inflammatory spondylopathy, cervical region (CMS/HCC V24) Acute cystitis without hematuria Other intra-abdominal and pelvic swelling, mass and lump Methicillin resistant Staphylococcus aureus infection as the cause of diseases classified elsewhere COMPREHENSIVE METABOLIC PANEL Routine 09/28/2024 7:08 AM EDT Unspecified inflammatory spondylopathy, 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) Acute cystitis without hematuria Other intra-abdominal and pelvic swelling, mass and lump Methicillin resistant Staphylococcus aureus infection as the cause of diseases classified elsewhere documented in this encounter Results * (ABNORMAL) Comprehensive metabolic panel (09/28/2024 7:08 AM EDT) Sodium 138 133 - 145 mmol/L LAB CHEMISTRY METHOD 09/28/2024 11:05 AM [facility] Potassium 4.8 3.5 - 5.5 mmol/L LAB CHEMISTRY METHOD 09/28/2024 11:05 AM [facility] Chloride 105 96 - 110 mmol/L LAB CHEMISTRY METHOD 09/28/2024 11:05 AM [facility] CO2 28 21 - 32 mmol/L LAB CHEMISTRY METHOD 09/28/2024 11:05 AM [facility] Anion Gap 5 3 - 11 LAB CHEMISTRY METHOD 09/28/2024 11:05 AM [facility] Glucose 72 70 - 100 mg/dL LAB CHEMISTRY METHOD 09/28/2024 11:05 AM [facility] BUN 34(H) 5 - 25 mg/dL LAB CHEMISTRY METHOD 09/28/2024 11:05 AM [facility] Creatinine 1.20 0.70 - 1.30 mg/dL LAB CHEMISTRY METHOD 09/28/2024 11:05 AM [facility] eGFR 58(L) >=60 mL/min/1. 73m2 LAB CHEMISTRY METHOD 09/28/2024 11:05 AM [facility] Comment:Calculation based on the Chronic Kidney Disease Epidemiology Collaboration (CKD-EPI) equation refit without adjustment for race. BUN/Creatinine Ratio 28.3 LAB CHEMISTRY METHOD 09/28/2024 11:05 AM [facility] Calcium 8.8 8.5 - 10.5 mg/dL LAB CHEMISTRY METHOD 09/28/2024 11:05 AM [facility] AST (SGOT) 23 10 - 42 unit/L LAB CHEMISTRY METHOD 09/28/2024 11:05 AM [facility] ALT (SGPT) 22 10 - 60 unit/L LAB CHEMISTRY METHOD 09/28/2024 11:05 AM [facility] Alkaline Phosphatase 78 42 - 121 unit/L LAB CHEMISTRY METHOD 09/28/2024 11:05 AM [facility] Total Protein 5.2(L) 6.0 - 8.0 g/dL LAB CHEMISTRY METHOD 09/28/2024 11:05 AM [facility] Albumin 2.3(L) 3.2 - 5.0 g/dL LAB CHEMISTRY METHOD 09/28/2024 11:05 AM [facility] Total Bilirubin 0.4 0.0 - 1.4 mg/dL LAB CHEMISTRY METHOD 09/28/2024 11:05 AM [facility] Blood Venous blood specimen / Unknown Venipuncture / Unknown 09/28/2024 7:08 AM EDT 09/28/2024 9:06 AM EDT us Regis Wahl MD LAB BLOOD ORDERABLES Final Resul t [facility] [address] [place] [address], * C-reactive protein (09/28/2024 7:08 AM EDT) C-Reactive Protein 0.41 <=0.50 mg/dL LAB CHEMISTRY METHOD 09/28/2024 10:51 AM [facility] Blood Venous blood specimen / Unknown Venipuncture / Unknown 09/28/2024 7:08 AM EDT 09/28/2024 9:06 AM EDT us Regis Wahl MD LAB BLOOD ORDERABLES Final Resul t [facility] [address] [place] [address], * (ABNORMAL) Complete blood count (09/28/2024 7:08 AM EDT) WBC 5.4 4.8 - 10.8 K/mcL LAB HEMETOLOGY METHOD 09/28/2024 10:[address] [facility] RBC 2.50(L) 4.50 - 5.50 M/mcL LAB HEMETOLOGY METHOD 09/28/2024 10:[address] [facility] Hemoglobin 7.1(L) 13.5 - 17.5 g/dL LAB HEMETOLOGY METHOD 09/28/2024 10:06 AM [facility] Hematocrit 23.2(L) 42.0 - 54.0 % LAB [facility]EMETOLOGY [facility] MCV 93.9 79.0 - 98.0 FL LAB [facility]EMETOLOGY METHOD [facility] MCH 28.7 27.0 - 32.0 pcg LAB HEMETOLOGY METHOD 09/28/2024 10:06 AM [facility] MCHC 30.6(L) 32.0 - 37.0 g/dL LAB HEMETOLOGY METHOD 09/28/2024 10:06 AM [facility] RDW 16.7(H) 11.0 - 15.0 % LAB HEMETOLOGY METHOD [facility]/28[facility]24 [facility] Platelets 252 130 - 400 K/mcL LAB HEMETOLOGY METHOD 09/28/2024 10:06 AM EDT [facility] MPV 11.2(H) 7.0 - 11.0 FL LAB HEMETOLOGY METHOD 09/28/2024 10:[address] [facility] NRBC 0.0 <1.0 % LAB HEMETOLOG METHOD 09/28/2024 10:[address] [facility] NRBC Absolute 0.00 <0.10 K/mcL LAB HEMETOLOGY METHOD 09/28/2024 10:[address] [facility] Blood Venous blood specimen / Unknown Venipuncture / Unknown 09/28/2024 7:08 AM EDT 09/28/2024 9:06 AM EDT us Regis Wahl MD LAB BLOOD ORDERABLES Final Resul t [facility] [address] [place] [address], documented in this encounter Visit Diagnoses Diagnosis Unspecified inflammatory spondylopathy, cervical region (CMS/HCC V24) Acute cystitis without hematuria Other intra-abdominal and pelvic swelling, mass and lump Methicillin resistant Staphylococcus aureus infection as the cause of diseases classified elsewhere documented in this encounter Care Teams Synchro Assembler Relationship Specialty Start Date End Date Regis Wahl MD [address] [place] [address] [address] [place], [phone] PCP - General Family Medicine 08/24/24 documented as of this encounter
--- OUTSIDE RECORDS SUMMARY | 2025-04-23 16:27 | XMS_ITS | Encounter Summary ---
Author Organization [facility] Address [address] [place] [address] Care Team Providers Care Special Assemblies Supervisor Name Role Phone Regis Wahl MD Primary Care Provider [phone] Encounter Details Date Type Department Care Team (Late st Contact Info) Description 09/13/[address] [facility] - Main Lab [address] [facility] [employer] [place] [address] Regis Wahl MD 38 [facility] [address] [place], [address] Unspecified inflammatory spondylopathy, cervical region (CMS/HCC [...] Associated Diagnosis Comments COMPLETE BLOOD COUNT Routine 09/14/2024 7:54 AM EDT Unspecified inflammatory spondylopathy, cervical region (CMS/HCC) Acute cystitis without hematuria Other intra-abdominal and pelvic swelling, mass and lump Methicillin resistant Staphylococcus aureus infection as the cause of diseases classified elsewhere C-REACTIVE PROTEIN Routine 09/14/2024 7: 54 AM EDT Unspecified inflammatory spondylopathy, cervical region (CMS/HCC) Acute cystitis without hematuria Other intra-abdominal and pelvic swelling, mass and lump Methicillin resistant Staphylococcus aureus infection as the cause of diseases classified elsewhere COMPREHENSIVE METABOLIC PANEL Routine 09/14/2024 7:54 AM EDT Unspecified inflammatory spondylopathy, cervical region (CMS/HCC) Acute cystitis without hematuria Other intra-abdominal and pelvic swelling, mass and lump Methicillin resistant Staphylococcus aureus infection as the cause of diseases classified elsewhere documented in this encounter Results * (ABNORMAL) Comprehensive metabolic panel (09/14/2024 7:54 AM EDT) Sodium 134 133 - 145 mmol/L LAB CHEMISTRY METHOD 09/14/2024 11:53 AM [facility] Potassium 4.0 3.5 - 5.5 mmol/L LAB CHEMISTRY METHOD 09/14/2024 11:53 AM [facility] Chloride 100 96 - 110 mmol/L LAB CHEMISTRY METHOD 09/14/2024 11:53 AM [facility] CO2 27 21 - 32 mmol/L LAB CHEMISTRY METHOD 09/14/2024 11:53 AM [facility] Anion Gap 7 3 - 11 LAB CHEMISTRY METHOD 09/14/2024 11:53 AM [facility] Glucose 82 70 - 100 mg/dL LAB CHEMISTRY METHOD 09/14/2024 11:53 AM [facility] BUN 38(H) 5 - 25 mg/dL LAB CHEMISTRY METHOD 09/14/2024 11:53 AM [facility] Creatinine 1.37(H) 0.70 - 1.30 mg/dL LAB CHEMISTRY METHOD 09/14/2024 11:53 AM [facility] eGFR 50(L) >=60 mL/min/1. 73m2 LAB CHEMISTRY METHOD 09/14/2024 11:53 AM [facility] Comment:Calculation based on the Chronic Kidney Disease Epidemiology Collaboration (CKD-EPI) equation refit without adjustment for race. BUN/Creatinine Ratio 27.7 LAB CHEMISTRY METHOD 09/14/2024 11:53 AM [facility] Calcium 8.7 8.5 - 10.5 mg/dL LAB CHEMISTRY METHOD 09/14/2024 11:53 AM [facility] AST (SGOT) 25 10 - 42 unit/L LAB CHEMISTRY METHOD 09/14/2024 11:53 AM [facility] ALT (SGPT) 23 10 - 60 unit/L LAB CHEMISTRY METHOD 09/14/2024 11:53 AM [facility] Alkaline Phosphatase 81 42 - 121 unit/L LAB CHEMISTRY METHOD 09/14/2024 11:53 AM EDT [facility] Total Protein 5.7(L) 6.0 - 8.0 g/dL LAB CHEMISTRY METHOD 09/14/2024 11:53 AM [facility] Albumin 2.3(L) 3.2 - 5.0 g/dL LAB CHEMISTRY METHOD 09/14/2024 11:53 AM [facility] Total Bilirubin 0.5 0.0 - 1.4 mg/dL LAB CHEMISTRY METHOD 09/14/2024 11:53 AM [facility] Blood Venous blood specimen / Unknown Venipuncture / Unknown 09/14/2024 7:54 AM EDT 09/14/2024 10:43 AM EDT us Regis Wahl MD LAB BLOOD ORDERABLES Final Resul t [facility] [address] [place] [address], * (ABNORMAL) C-reactive protein (09/14/2024 7:54 AM EDT) C-Reactive Protein 3.94(H) <=0.50 mg/dL LAB CHE[facility]STRY [facility] Venous blood specimen / Unknown Venipuncture / Unknown 09/14/2024 7:54 AM EDT 09/14/2024 10:43 AM EDT us Regis Wahl MD LAB BLOOD ORDERABLES Final Resul t [facility] [address] [place] [address], [place] [phone] * (ABNORMAL) Complete blood count (09/14/2024 7:54 AM EDT) WBC 9.0 4.8 - 10.8 K/mcL LAB HEMETOLOGY METHOD 09/14/2024 11:17 AM EDT [facility] RBC 2.80(L) 4.50 - 5.50 M/mcL LAB HEMETOLOGY METHOD 09/14/2024 11:17 AM EDT [facility] Hemoglobin 7.9(L) 13.5 - 17.5 g/dL LAB HEMETOLOGY METHOD 09/14/2024 11:17 AM [facility] Hematocrit 25.6(L) 42.0 - 54.0 % LAB HEMETOLOGY METHOD 09/14[facility]2024 [facility] MCV 92.4 79.0 - 98.0 FL LAB HEMETOLOGY METHOD 09/14/2024 11:17 AM [facility] MCH 28.5 27.0 - 32.0 pcg LAB HEMETOLOGY METHOD 09/14/2024 11:17 AM [facility] MCHC 30.9(L) 32.0 - 37.0 g/dL LAB HEMETOLOGY METHOD 09/14/2024 11:17 AM [facility] RDW 15.3(H) 11.0 - 15.0 % LAB HEMETOLOGY METHOD 09/14/2024 11:17 AM [facility] Platelets 335 130 - 400 K/mcL LAB HEMETOLOGY METHOD 09/14/2024 11:17 AM EDT [facility] MPV 10.6 7.0 - 11.0 FL LAB HEMETOLOGY METHOD 09/14/2024 11:17 AM EDT [facility] NRBC 0.0 <1.0 % [facility] 09/14/2024 11:17 AM EDT [facility] NRBC Absolute 0.00 <0.10 K/mcL LAB HEMETOLOGY METHOD 09/14/2024 11:17 AM EDT [facility] Blood Venous blood specimen / Unknown Venipuncture / Unknown 09/14/2024 7:54 AM EDT 09/14/2024 10:38 AM EDT us Regis Wahl MD LAB BLOOD ORDERABLES Final Resul t [facility] [address] [place] [address], documented in this encounter Visit Diagnoses Diagnosis Unspecified inflammatory spondylopathy, cervical region (CMS/HCC V24) Acute cystitis without hematuria Other intra-abdominal and pelvic swelling, mass and lump Methicillin resistant Staphylococcus aureus infection as the cause of diseases classified elsewhere documented in this encounter Care Teams Special Assemblies Supervisor Relationship Specialty Start Date End Date Regis Wahl MD [address] [place] [address], [phone] PCP - General Family Medicine 08/24/24 documented as of this encounter
--- OUTSIDE RECORDS SUMMARY | 2025-04-23 16:27 | XMS_ITS | Encounter Summary ---
Author Organization [facility] Address [address] [place] [address] Care Team Providers Care Weigher And Crusher Name Role Phone Regis Wahl MD Primary Care Provider [phone] Encounter Details Date Type Department Care Team (Late st Contact Info) Description 10/04/2024 Lab Requisition [facility] - Main Lab [address] [facility] [place] [address] Regis Wahl MD [address] [facility] [address] [place], [phone] Unspecified inflammatory spondylopathy, cervical region (CMS/HCC [...] on file documented as of this encounter Visit Diagnoses Diagnosis Unspecified inflammatory spondylopathy, cervical region (CMS/HCC V24) Acute cystitis without hematuria Other intra-abdominal and pelvic swelling, mass and lump Methicillin resistant Staphylococcus aureus infection as the cause of diseases classified elsewhere documented in this encounter Care Teams Weigher And Crusher Relationship Specialty Start Date End Date Regis Wahl MD 38 [facility] [address] [place], [phone] PCP - General Family Medicine 08/24/24 documented as of this encounter
== END 2025-04-23 16:14 | disposition home or self-care (01) ==
LOC: HO.HUSH 14:41
PROVIDERS: PCP Family Medicine; Visit Provider Urology
DX: N47.1 Phimosis (principal)
CPT/HCPCS: 52000; 99204; G2211

== ENCOUNTER → 2025-04-23 14:40 | Outpatient (BNVA) | payer OTHER, SELFPAY | PROVIDERS: PCP Family Medicine; Visit Provider Urology | DX: N39.0 Urinary tract infection, site not specified (principal) | CPT/HCPCS: 52000; 99202 ==